=== PATIENT | female | born 1950 | race Caucasian/White ===

== ENCOUNTER 2017-09-01 10:20 | Outpatient (RCR) | payer MEDICARE, SELFPAY | END 2017-09-16 23:59 | LOC: NS 10:20 | PROVIDERS: Family Provider Family Medicine; PCP Family Medicine; Visit Provider Nurse Practitioner Family | DX: E11.65 Type 2 diabetes mellitus with hyperglycemia (principal); Z71.3 Dietary counseling and surveillance | CPT/HCPCS: 97803 ==

== ENCOUNTER 2017-09-29 10:11 | Outpatient (RCR) | payer MEDICARE, SELFPAY ==
[2016-11-11 02:27] VITALS: BMI 36.4
[2016-11-11 09:30] VITALS: BP 155/71
[2016-11-11 10:44] VITALS: BP 155/73
== END 2017-10-14 23:59 ==
LOC: DC 10:11
PROVIDERS: Family Provider Family Medicine; PCP Family Medicine; Visit Provider Nurse Practitioner Family
DX: E11.65 Type 2 diabetes mellitus with hyperglycemia (principal); Z71.3 Dietary counseling and surveillance
CPT/HCPCS: 97803

== ENCOUNTER → 2017-10-19 09:20 | Outpatient (CLI) | payer MEDICARE, SELFPAY ==
--- NOTE | 2017-10-19 09:25 | RAD_ITS ---
STUDY: X-RAY - ESOPHAGUS (BARIUM SWALLOW) WITH FLUOROSCOPY REASON FOR EXAM: Female, 67 years old. 2 month history of cervical fullness. TECHNIQUE: 16 view(s) of the esophagus were obtained following swallowing of barium. FLUOROSCOPY TIME (if supplied): (0:25) minutes/seconds COMPARISON: None. FINDINGS: There is no demonstrated esophageal foreign body. There is no demonstrated stricture or mucosal abnormality. Normal gastroesophageal junction, without a demonstrated hiatal hernia. The patient ingest a 12 mm tablet of barium without any difficulty. There is atherosclerotic tortuosity of the aortic arch and descending thoracic aorta. Normal visualized pulmonary parenchyma. Normal visualized osseous structures of the thorax. RAD/Esophagus Only IMPRESSION: Normal plain film x-ray examination (barium swallow) of the esophagus. Electronically Signed: Rupesh Morris MD at 10:19 EST Tel [phone], Service support ,
== END ==
PROVIDERS: Family Provider Family Medicine; PCP Family Medicine; Visit Provider Otolaryngology
DX: R13.10 Dysphagia, unspecified (principal)
CPT/HCPCS: 74220

== ENCOUNTER 2018-04-07 01:55 | Observation (INO) | payer MEDICARE, SELFPAY ==
[2018-04-07] VITALS (10 sets, daily range): BP systolic 149–174; BP diastolic 62–66; PULSE 78–92; RESP 14–16; TEMP 36.5–36.7; O2SAT 92–95; BMI 36.5; BMI 36.6
[2018-04-07 03:02] LABS: Anion Gap 8 (5-15); BUN 15 mg/dL (7-18); Calcium,Total 8.9 mg/dL (8.5-10.1); Chloride 104 mmol/L (98-107); Creatinine, Serum 0.75 mg/dL (0.55-1.02); EST Glomerular Filtration Rate 82 mL/min (>60); Est Glom Filt Rate - Afr Amer 99 mL/min (>60); Glucose 167 mg/dL (74-106); Potassium 4.2 mmol/L (3.5-5.1); Sodium Level 137 mmol/L (136-145)
--- NOTE | 2018-04-07 03:02 | ED.VISSUMM ---
- ER Visit Summary Date of Service: 04/07/18 Chief Complaint: Weakness History of Present Illness: The patient is a 67 F presenting for evaluation secondary to left-sided weakness. Patient reports that about 2 years ago she had a history of a TIA. She had a full workup in the hospital, was discharged on antihypertensives. She reports that since that episode, she has very intermittently had episodes where she has feelings of generalized nausea and progression to some chest discomfort then progression to a headache and then some left arm weakness that typically resolves on its own. Patient states that she over the course of the last 3 weeks after receiving a cortisone shot in her left knee feels that she has been having increasing frequency of these episodes and some increasing severity. She reports that she was having one this evening, and took her blood pressure at home and noted to be significantly elevated in the 180s 190 systolic range. She denies that there was any sort of visual changes or numbness with it. The weakness was mainly in her left arm. Patient does report that she used to be on losartan for treatment of her blood pressure, but has been off of this the last couple of days that she is changing her antihypertensives. Physical Examination: Vital signs are within normal limits except for significant hypertension 227/73 and a heart rate of 109 patient is afebrile. General: Patient is well-nourished well-developed and in no acute distress. Head: Normocephalic, atraumatic Eyes: Pupils equal round and reactive bilaterally, extra occular motion intact bialterally ENT: Moist mucous membranes Neck: Supple, no lymphadenopathy, no JVD, no meningismus CVS: Heart regular rate and rhythm, 3 out of 6 systolic murmur noted over the patient's apex, rubs or gallops, radial pulses 2+ bilaterally Resp: Respirations nondistressed, lung sounds clear bilaterally Abdomen: Soft, nontender, nondistended, no palpable masses, normal bowel sounds Back: Nontender Extremities: Nontender, atraumatic, active full range of motion, no peripheral edema Skin: warm, no rashes, no petechia Neuro: Alert and oriented x 4, CN 2-12 intact, no lateralizing neurological defecits, NIH stroke scale is 0 Psyc: Anxious Test Results: EKG: Sinus rhythm at 90 with nonspecific T-wave changes no evidence of acute ST segment changes or ischemia, no changes from prior EKG. CBC shows mild leukocytosis 12.6 with lymphocytic predominance at 48%, chemistry unremarkable, INR unremarkable, troponin negative. CT brain was negative. Emergency Department Course and Treatment: Patient presented for evaluation secondary to left-sided weakness. She had significant hypertension in the emergency department and was given IV labetalol. Her workup is essentially negative as noted above. Patient's symptoms resolved and her blood pressure improved to 152/62. Patient has a litany of risk factors, and states that she has been having crescendoing symptoms over the last 3 weeks so I do believe that there is at least some concern for the possibility of an impending stroke. Patient at the very least had a hypertensive emergency, and requires admission. I discussed this with hospitalist and the patient will be admitted. Disposition: Admission Impression: 1. Hypertensive emergency 2. TIA Critical care time 35 minutes This note was generated with Net[employer] dictation software. It may contain incorrect words, spelling, and punctuation that were not noted in review of the chart prior to signing ED Disposition - Plan for ED Patient: Referrals: Brendon Little MD [Primary Care Provider] -
--- NOTE | 2018-04-07 03:05 | ED.DCSUM_ITS ---
- ER Visit Summary Date of Service: 04/07/18 Chief Complaint: Weakness History of Present Illness: The patient is a 67 F presenting for evaluation secondary to left-sided weakness. Patient reports that about 2 years ago she had a history of a TIA. She had a full workup in the hospital, was discharged on antihypertensives. She reports that since that episode, she has very intermittently had episodes where she has feelings of generalized nausea and progression to some chest discomfort then progression to a headache and then some left arm weakness that typically resolves on its own. Patient states that she over the course of the last 3 weeks after receiving a cortisone shot in her left knee feels that she has been having increasing frequency of these episodes and some increasing severity. She reports that she was having one this evening , and took her blood pressure at home and noted to be significantly elevated in the 180s 190 systolic range. She denies that there was any sort of visual changes or numbness with it. The weakness was mainly in her left arm. Patient does report that she used to be on losartan for treatment of her blood pressure , but has been off of this the last couple of days that she is changing her antihypertensives. Physical Examination: Vital signs are within normal limits except for significant hypertension 227/73 and a heart rate of 109 patient is afebrile. General: Patient is well-nourished well-developed and in no acute distress. Head: Normocephalic, atraumatic Eyes: Pupils equal round and reactive bilaterally, extra occular motion intact bialterally ENT: Moist mucous membranes Neck: Supple, no lymphadenopathy, no JVD, no meningismus CVS: Heart regular rate and rhythm, 3 out of 6 systolic murmur noted over the patient's apex, rubs or gallops, radial pulses 2+ bilaterally Resp: Respirations nondistressed, lung sounds clear bilaterally Abdomen: Soft, nontender, nondistended, no palpable masses, normal bowel sounds Back: Nontender Extremities: Nontender, atraumatic, active full range of motion, no peripheral edema Skin: warm, no rashes, no petechia Neuro: Alert and oriented x 4, CN 2-12 intact, no lateralizing neurological defecits, NIH stroke scale is 0 Psyc: Anxious Test Results: EKG: Sinus rhythm at 90 with nonspecific T-wave changes no evidence of acute ST segment changes or ischemia, no changes from prior EKG. CBC shows mild leukocytosis 12.6 with lymphocytic predominance at 48%, chemistry unremarkable, INR unremarkable, troponin negative. CT brain was negative. Emergency Department Course and Treatment: Patient presented for evaluation secondary to left-sided weakness. She had significant hypertension in the emergency department and was given IV labetalol. Her workup is essentially negative as noted above. Patient's symptoms resolved and her blood pressure improved to 152/62. Patient has a litany of risk factors, and states that she has been having crescendoing symptoms over the last 3 weeks so I do believe that there is at least some concern for the possibility of an impending stroke. Patient at the very least had a hypertensive emergency, and requires admission. I discussed this with hospitalist and the patient will be admitted. Disposition: Admission Impression: 1. Hypertensive emergency 2. TIA Critical care time 35 minutes This note was generated with [employer] dictation software. It may contain incorrect words, spelling, and punctuation that were not noted in review of the chart prior to signing ED Disposition - Plan for ED Patient: Referrals: Brendon Little MD [Primary Care Provider] -
[2018-04-07 03:08] LABS: Red Blood Count 4.92 M/mm3 (4.2-5.4); White Blood Count 12.6 K/mm3 (4.4-11.0)
[2018-04-07 03:09] LABS: Absolute Lymphocyte Count 6.14 X10^3/ul (0.83-4.51); Basophil# 0.04 X10^3/uL; Basophil% 0.3 % (0-1); Differential Comment SCANNED; Differential Indicated SCAN CRITERIA MET; Eosinophil# 0.19 X10^3/uL; Eosinophils% 1.5 % (0-5); Hematocrit 43.2 % (37-47); Hemoglobin 14.5 g/dl (12.0-15.0); Lymphocyte # 6.14 X10^3/ul (4.0); Lymphocyte % 48.7 % (19-41); Mean Corp Hgb Conc 33.6 g/gl (32-36); Mean Corpuscular Hgb 29.5 pg (27.0-32.0); Mean Corpuscular Volume 87.8 fL (81-99); Mean Platelet Vol. 11.2 fl (6.2-12.0); Monocyte% 9.5 % (0-10); Neutrophil # 5.01 X10^3/uL (2.7-7.7); Neutrophil % 39.8 % (47-70); POSITIVE COUNT NO; POSITIVE DIFFERENTIAL YES; POSITIVE MORPHOLOGY NO; Platelet Count 315 K/mm3 (150-450); RBC Distribution Width CV 13.6 % (11.6-14.6); RBC Distribution Width SD 43.2 fl (35.1-43.9)
--- NOTE | 2018-04-07 03:10 | NURSING ---
Report received from ED [facility] due to downtime.
[2018-04-07 03:11] LABS: International Normalized Ratio 1.1; Partial Thromboplast Time 31.8 Seconds (24.1-36.2); Prothrombin Time (Protime)PT. 14.1 SECONDS (11.7-14.9)
--- NOTE | 2018-04-07 03:18 | PCM.HP.STD ---
Problem List (1) Hypertensive urgency Status: Acute (2) History of stroke Status: Chronic (3) Family history not obtainable due to adoption Status: Chronic (4) Diabetes Status: Chronic (5) Hypertension Status: Chronic Qualifiers: (6) Jaw pain Status: Acute (7) Left arm pain Status: Acute (8) Stroke Status: Acute Qualifiers: (9) Headache Status: Acute Qualifiers: History of Present Illness Date of Admission: 04/07/18 Chief Complaint: High blood pressure with concern of left-sided heaviness The patient is a 67 year old F with history of hypertension, anxiety personality with history of TIA about 2 years ago when she had left-sided weakness came to ER for a feeling of left-sided heaviness although she can lift her left upper arm and left leg but she feels very anxious that she might get left-sided weakness. She feels an episode of some vaguely defined nausea, some dyspeptic symptoms, chest discomfort, which progressed to headache and feeling of left arm heaviness and resolves on its own. She is getting episodes more frequently for last 3 weeks. In ED, she was found to have blood pressure 227/73. Heart rate 109/min. She had CT head done which did not show acute change. EKG shows normal sinus rhythm 90 bpm. QTc 484 milliseconds. [] Past Medical History Past Medical History (Chronic Problems): Chronic Problems History of stroke (Chronic) Family history not obtainable due to adoption (Chronic) Diabetes (Chronic) Hypertension (Chronic) Allergies No Known Allergies Allergy (Verified 08/29/16 03:29) Home Medications: Ambulatory Orders Medication Instructions Recorded Ibuprofen [Motrin] 200 mg PO Q4H PRN PRN 07/16/16 Aspirin [Aspirin, Baby] 81 mg PO DAILY@0800 #1 tab.chew 07/17/16 Metformin HCl [Metformin HCl ER] 500 mg PO BID #60 [id number] 07/17/16 Valsartan [Diovan] 160 mg PO DAILY #30 tablet 07/17/16 Lorazepam [Ativan] 0.5 mg PO DAILY PRN PRN 11/10/16 Pantoprazole Sodium [Protonix] 40 mg PO BID #60 tablet 11/11/16 Surgical History: no surgical history Psychiatric History: - Smoking Status: Never smoker - *Family History Maternal History Items: - - unknown due to adoption Review of Systems Constitutional: Denies: Chills, Fever, Weight Change HEENT: Denies: Head Aches, Sinus Congestion, Sinus Drainage Cardiovascular: Denies: Chest Pain, Palpitations Respiratory: Denies: Cough, Shortness of breath at rest, Sputum production Gastrointestinal: Denies: Abdominal Pain, Nausea, Vomiting Genitourinary: Denies: Dysuria Musculoskeletal: Reports: Joint Pain, Joint swelling, Joint Tenderness Skin: Denies: Rash, Wounds Neurological: Denies: Numbness, Tingling, Focal weakness Psychiatric: Reports: Anxiety. Denies: Depression, Homicidal Ideations, Suicidal Ideations Hematologic/ Lymphatic: Denies: Easy Bruising, Easy Bleeding VTE Information - Inpt Only VTE Present on Admission: No VTE Mechan Device Prophylaxis: None VTE Pharm Prophylaxis ordered?: Yes Patient Problems: Active and Suspected Problems Hypertensive urgency (Acute) - Physical Exam General: Alert, Oriented x3, Cooperative HEENT: Atraumatic, PERRLA, EOMI, Normocephalic Neck: Supple, No JVD, Negative Carotid Bruits Lungs: Clear to auscultation, Normal air movement Cardiovascular: Regular rate, Normal S1, Normal S2, Murmur - Grade 3/6 diastolic murmur over aortic region and systolic murmur over left lower sternal border and mitral area Abdomen: Bowel Sounds Present, Soft, Non Tender Extremities: No edema, Capillary Refill Less than 3 Seconds Skin: No rashes, No breakdown Musculoskeletal: No Tenderness to Palpation of Joints or Extremities Neurological: Cranial nerves II-XII grossly intact Psych/Mental Status: Normal Affect, Appropriate Laboratory Tests Past 24 Hrs 04/07/18 04/07/18 04/07/18 01:10 01:10 01:10 WBC 12.6 H RBC 4.92 Hgb 14.5 Hct 43.2 MCV 87.8 MCH 29.5 MCHC 33.6 RDW 13.6 RDW Differential 43.2 Plt Count 315 MPV 11.2 Immature Gran % (Auto) 0.200 Neut % (Auto) 39.8 L Lymph % (Auto) 48.7 H [place] % (Auto) 9.5 Eos % (Auto) 1.5 Baso % (Auto) 0.3 Absolute Neuts (auto) 5.0 Absolute Lymphs (auto) 6.14 H Total Counted Not Reportable Differential Comment SCANNED PT 14.1 INR 1.1 APTT 31.8 Sodium 137 Potassium 4.2 Chloride 104 Carbon Dioxide 25.0 Anion Gap 8 BUN 15 Creatinine 0.75 Est GFR (MDRD) Af Amer 99 Est GFR (MDRD) Non-Af 82 BUN/Creatinine Ratio 20.0 Glucose 167 H Calcium 8.9 Troponin I < 0.015 Assessment/Plan All Active Problems Hypertensive urgency (Acute) Jaw pain (Acute) Left arm pain (Acute) Stroke (Acute) Headache (Acute) The patient is a 67 year old F with history of hypertension, anxiety personality with history of TIA about 2 years ago when she had left-sided weakness came to ER for a feeling of left-sided heaviness although she can lift her left upper arm and left leg but she feels very anxious that she might get left-sided weakness. She feels an episode of some vaguely defined nausea, some dyspeptic symptoms, chest discomfort, which progressed to headache and feeling of left arm heaviness and resolves on its own. She is getting episodes more frequently for last 3 weeks. In ED, she was found to have blood pressure 227/73. Heart rate 109/min. She had CT head done which did not show acute change. EKG shows normal sinus rhythm 90 bpm. QTc 484 milliseconds. NIH stroke scale 0 She had previous exercise nuclear stress test in October 2016 reported as negative with no evidence of ischemia or clinical angina. She had full workup of his stroke with brain MRI and CT scan of head and neck which showed tiny acute infarct involving the right posterior occipital lobe in the watershed location. CT angiogram of head and neck did not show significant stenosis or aneurysm. 1. Hypertensive urgency: Last blood pressure in the ER is 155/71. Heart rate 81/min. Patient is being admitted in PCU. Serial troponin enzymes. Keep the blood pressure in 150 systolic range for next 24 hours. Patient blood pressure has recently been changed and she is not taking new medications. Continue aspirin. Fasting lipid profile tomorrow a.m. Diastolic aortic murmur probably aortic regurgitation with mitral and tricuspid systolic murmur: 2D echo is ordered. 2. Concern of left-sided weakness: There is no true weakness on exam. I think patient has anxiety and fear of previous TIA episode about 2 years ago. MRI brain, carotid Doppler and 2D echo is ordered. Serial neuro checks. PT/OT and speech evaluation. 3. Diabetes mellitus type 2: Hold metformin. Accu-Chek before meals and at bedtime and cover with NovoLog sliding scale. A1c tomorrow a.m. 4. Other comorbidities include bilateral knee arthritis and anxiety disorder: Continue home medication. She is on Ativan at home and will continue it. This note was generated with [employer] software. Every effort was made to ensure accuracy, however computerized steam press operator mistakes may persist. Code Visit OBSV E&M: 55705 Initial observation care L3
[2018-04-07 05:01] LABS: Cholesterol 204 mg/dL (200); High Density Lipoprotein 39 mg/dL; Triglycerides 319 mg/dL; Very Low Density Lipoprotein 64 mg/dL (5-40)
[2018-04-07 07:01] LABS: Bedside Glucose 162 mg/dL (70-110)
[2018-04-07 09:16] LABS: Hemoglobin A1c 8.1 % (4.2-6.3)
[2018-04-07] MEDS: LORazepam 0.5 MG Tablet PO (10:05)
[2018-04-07] MEDS: Glucerna Shake 120 ML LIQUID PO ×2 (10:05→14:02)
[2018-04-07] MEDS: Aspirin 81 MG TAB.CHEW PO (10:05)
[2018-04-07] MEDS: Losartan Potassium 25 MG Tablet PO ×2 (10:37→14:46)
[2018-04-07] MEDS: Insulin Lispro 100 UNIT/ML INSULN.PEN SQ (11:04)
[2018-04-07 11:06] LABS: Bedside Glucose 226 mg/dL (70-110)
--- NOTE | 2018-04-07 14:05 | PCM.DC ---
- Discharge Diagnoses Current Active Problems: Current Active and Chronic Problems Hypertensive urgency (Acute) You will use the following diet at home:: Calorie/Carbohydrate Controlled (specify 1200, 1400, etc), Cardiac Discharge Activity: Return to Normal Activity Call your doctor if you observe: Shortness of breath, Dizziness, Fainting spells, Chest pain Allergies/Adverse Reactions: Allergies caffeine Adverse Reaction (Verified 04/07/18 03:50) Other prochlorperazine [From Compazine] Adverse Reaction (Verified 04/07/18 03:50) Other Medications to take at Discharge Aspirin [Aspirin, Baby] 81 mg PO DAILY@0800 #1 tab.chew 07/17/16 Lorazepam [Ativan] 0.5 mg PO DAILY PRN PRN 11/10/16 Atorvastatin Calcium [Lipitor] 40 mg PO QHS #30 tab 04/07/18 Losartan Potassium 50 mg PO DAILY #30 tab 04/07/18 Metformin HCl 500 mg PO BID #30 tab 04/07/18 The following prescriptions were given: Atorvastatin Calcium [Lipitor] 40 mg PO QHS #30 tab Losartan Potassium 50 mg PO DAILY #30 tab Primary Care Physician: Brendon Little MD [Primary Care Provider] - Please follow up with your Primary Care Physician in: 1 Week Test Results: Test results from this visit will be discussed in further detail at your follow-up appointment, if applicable. Proposed Discharge Date: 04/07/18
--- NOTE | 2018-04-07 14:09 | PCM.DC.SUM ---
<Makeda Carcamo - Last Filed: 04/07/18 14:21> Discharge Date and Diagnosis Date of Admission: 04/07/18 Date of Discharge: 04/07/18 - Primary Discharge Diagnosis Active and Suspected Problems 1. Hypertensive urgency 2. History of CVA 3. Type 2 diabetes mellitus 4. Anxiety disorder 5. Bilateral knee arthritis - Secondary Discharge Diagnosis Chronic Problems History of stroke (Chronic) Family history not obtainable due to adoption (Chronic) Diabetes (Chronic) Hypertension (Chronic) Hospital Course and Treatment Imaging Results: Diagnostic Data Brain CT 04/07/18 01:50 IMPRESSION: Normal unenhanced CT scan of the brain. Electronically Signed: Bridger Samano MD at 2:11 EDT Tel , Service support , Operations: None Procedures: 2-D Echocardiogram Summary of Care Provided: The patient is a 67 year old F admitted 04/07/2018 due to hypertensive urgency. Patient also noted left-sided upper extremity weakness although on further assessment she states this is chronic intermittently and has been told it is due to her nerves. Patient was discharged October 2016 following workup for jaw pain and was noted to have residual left upper extremity weakness from prior CVA. Patient denies new neurologic deficits during admission. Home losartan regimen increased to 50mg daily. Blood pressure improved prior to discharge. Patient will need further blood pressure monitoring as outpatient, further outpatient follow-up by primary care physician. Echocardiogram demonstrated an EF of 65%, stage I diastolic dysfunction, RVSP estimated [address] showed normal CT of the brain. Troponin negative. Patient was noted to have elevated lipids. Placed on atorvastatin 40 mg nightly. Recommend repeat lipid panel by primary care physician for further adjustment of statin therapy if necessary. Hemoglobin A1c 8.1%. Home metformin regimen increased to 500 mg twice daily. Troponin negative ?1. Patient will continue aspirin regimen at discharge. MRI of brain showed no evidence of acute infarct. No neurologic deficits on assessment. General: Alert, Oriented x3, Cooperative HEENT: Atraumatic, PERRLA, EOMI, Normocephalic Neck: Supple, No JVD, Negative Carotid Bruits Lungs: Clear to auscultation, Normal air movement Cardiovascular: Regular rate, Normal S1, Normal S2, Murmur Abdomen: Bowel Sounds Present, Soft, Non Tender Extremities: No edema, Capillary Refill Less than 3 Seconds Skin: No rashes, No breakdown Musculoskeletal: No Tenderness to Palpation of Joints or Extremities Neurological: Cranial nerves II-XII grossly intact Psych/Mental Status: Normal Affect, Appropriate Patient seen exam prior to discharge. Physical assessment as noted above. Patient stable for discharge home with the follow-up recommendations as noted above. This patient was seen by BUSHRA Navarro under the supervision of Dr. Avendaño. Discharge Diet: Low fat/ Low Cholesterol Discharge Activity: Return to Normal Activity Call your doctor if you observe: Shortness of breath, Dizziness, Fainting spells, Chest pain Home Medications: Medications to take at Discharge Aspirin [Aspirin, Baby] 81 mg PO DAILY@0800 #1 tab.chew 07/17/16 Lorazepam [Ativan] 0.5 mg PO DAILY PRN PRN 11/10/16 Atorvastatin Calcium [Lipitor] 40 mg PO QHS #30 tab 04/07/18 Losartan Potassium 50 mg PO DAILY #30 tab 04/07/18 Metformin HCl 500 mg PO BID #30 tab 04/07/18 Following Prescrptions Were Given to Patient: Atorvastatin Calcium [Lipitor] 40 mg PO QHS #30 tab Losartan Potassium 50 mg PO DAILY #30 tab Primary Care Physician: Brendon Little MD [Primary Care Provider] - Please follow up with your Primary Care Physician in: 1 Week Disposition: Home Minutes spent on discharge:: 35 Patient Condition:: Stable Medical Necessity - Tobacco Use Smoking Status: Never smoker Meaningful Use Info Meaningful Use Diagnoses (Choose all that apply): None applicable <Tab Avendaño - Last Filed: 04/07/18 16:09> Discharge Date and Diagnosis - Secondary Discharge Diagnosis Chronic Problems History of stroke (Chronic) Family history not obtainable due to adoption (Chronic) Diabetes (Chronic) Hypertension (Chronic) Hospital Course and Treatment Summary of Care Provided: Addendum: Dr. Avendaño I personally examined the patient and reviewed the chart. I agree with the above. My review of her MRI was negative for a stroke. 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 She has not been on her valsartan because she says it was recalled and has not started taking yet, the losartan that was prescribed. Also she had a steroid knee injection which she states has made her BG difficult to control and this has caused her stress which has contributed to her HTN and symptoms. She is currently doing well and her exam is benign. She will need to f/u with her PCP to continue close monitoring of her HTN. The final read on the MRI is still pending but the patient demands to go home. She understands, and is willing to assume the risk. Code Visit Inpatient E&M: 06777 Disch Hosp
== END 2018-04-07 14:06 | disposition home or self-care (01) ==
LOC: ED 02:54 → PCU 03:17
PROVIDERS: Admitting Provider Internal Medicine; Emergency Provider Emergency Medicine; Family Provider Family Medicine; PCP Family Medicine; Visit Provider Family Medicine
DX: I16.0 Hypertensive urgency (principal); I69.354 Hemiplegia and hemiparesis following cerebral infarction affecting left non-dominant side; E11.9 Type 2 diabetes mellitus without complications; F41.9 Anxiety disorder, unspecified; Z79.899 Other long term (current) drug therapy; Z79.84 Long term (current) use of oral hypoglycemic drugs; Z79.82 Long term (current) use of aspirin; M13.862 Other specified arthritis, left knee; M13.861 Other specified arthritis, right knee; I07.1 Rheumatic tricuspid insufficiency; I65.23 Occlusion and stenosis of bilateral carotid arteries; R29.700 NIHSS score 0
CPT/HCPCS: 36415; 70450; 70551; 80048; 80061; 82962; 83036; 84484; 85025; 85610; 85730; 92526; 93005; 93306; 93880; 97161; 97166; 99218; 99285; Q9957; A4216; G0378

== ENCOUNTER 2020-02-19 10:02 | Emergency (ER) | payer MEDICARE, SELFPAY ==
[2020-02-19 10:03] VITALS: BP 164/120; PULSE 104; RESP 18; TEMP 37.7; O2SAT 97; BMI 38.2
--- NOTE | 2020-02-19 10:21 | RAD_ITS ---
STUDY: X-RAY CHEST REASON FOR EXAM: Female, 69 years old. Chest pain TECHNIQUE: Frontal view COMPARISON: November 11, 2016 FINDINGS: The lungs are clear and expanded. There is no demonstrated pleural abnormality. Normal size heart. Normal mediastinum and kailyn. Normal visualized pulmonary arteries. Normal visualized aortic arch and descending thoracic aorta. Normal visualized thoracic spine. Normal visualized ribs, clavicles, and shoulders. There is no demonstrated abnormality of the visualized soft tissue structures of the upper abdomen. RAD/Chest 1 View (Portable) IMPRESSION: Normal x-ray examination of the chest. Electronically Signed: Rayray Ngo DO at 11:42 EDT Tel [phone], Service support ,
--- NOTE | 2020-02-19 10:23 | ED.VIS.GEN ---
History of Present Illness Chief Complaint: Fever Informant: Patient Onset: Yesterday Context: Gradual Onset Current Severity: Moderate Maximum Severity: Moderate Narrative: Patient presents with fever that started yesterday. T-max is 100.5. She complains of generalized body aches. She denies cough or congestion. She denies nausea, vomiting, or diarrhea. No dysuria. Denies any known exposures to Covid. - Past Medical History (1) Stroke Status: Chronic (2) Diabetes Status: Chronic (3) Hypertension Status: Chronic Past Medical History - Allergies and Home Meds Allergies/Adverse Reactions: Allergies caffeine Adverse Reaction (Verified 02/19/20 10:05) Other diphenhydramine [From Benadryl] Adverse Reaction (Verified 02/19/20 10:05) PT UNSURE OF REACTION prochlorperazine [From Compazine] Adverse Reaction (Verified 02/19/20 10:05) Other Primary Care Physician: Brendon Little MD [Primary Care Provider] - Prior records reviewed: Yes Surgical History: no surgical history Lives: Spouse/ Significant Other Smoking Status: Never smoker - Family History Maternal Family History: Reports: - - unknown due to adoption Review of Systems General: Reports: Fever Eyes: Denies: Visual changes - bilaterally ENT: Denies: Bilateral ear pain Cardiovascular: Denies: Chest pain Respiratory: Denies: Dyspnea, Cough Gastrointestinal: Denies: Abdominal pain, Nausea, Vomiting, Diarrhea Genitourinary: Denies: Dysuria Musculoskeletal: Reports: Myalgias Skin: Denies: Rash Neurological: Denies: Headache Hematologic: Denies: Easy bruising, Easy bleeding Allergy: Denies: Uticaria Physical Exam Vital Signs/Narrative: Vital Signs Temp Pulse Resp BP Pulse Ox 02/19/20 10:03 100 F H 104 H 18 164/120 H 97 Inital Vital Signs reviewed: Yes General: Well nourished, Well developed Head: Normocephalic ENT: Moist mucous membranes Neck: Supple Cardiovascular: Regular rate, Regular rhythm Respiratory: No distress, CTA bilaterally Abdomen: Soft, Normal bowel sounds, Tender - Mild upper abdominal tenderness. No guarding or rebound. Back: Nontender - No midline thoracic or lumbar tenderness. Extremities: Nontender Skin: Normal color, No rash Neurological: Alert, Oriented x3 Psychological: Normal affect Diagnostic/Tx/Re-eval Impressions Chest X-Ray 02/19/20 10:21 IMPRESSION: Normal x-ray examination of the chest. Electronically Signed: Rayray Ngo DO at 11:42 EDT Tel [phone], Service support , 02/19/20 10:21 Chest 1 View (Portable) [RAD] Stat Laboratory Results 02/19/20 02/19/20 02/19/20 11:00 11:00 11:00 WBC 11.0 RBC 5.14 Hgb 15.1 H Hct 46.7 MCV 90.9 MCH 29.4 MCHC 32.3 RDW Std Deviation 43.8 RDW Coeff of Michaela 13.3 Plt Count 274 MPV 10.9 Immature Gran % (Auto) 0.300 Neut % (Auto) 80.0 H Lymph % (Auto) 13.0 L [place] % (Auto) 6.0 Eos % (Auto) 0.3 Baso % (Auto) 0.4 Absolute Neuts (auto) 8.8 H Absolute Lymphs (auto) 1.44 Nucleated RBC % 0 Sodium 133 L Potassium 3.7 Chloride 100 Carbon Dioxide 28.0 Anion Gap 5 BUN 10 Creatinine 0.77 Estim Creat Clear Calc 45.16 Est GFR (MDRD) Af Amer 96 Est GFR (MDRD) Non-Af 79 BUN/Creatinine Ratio 13.0 Glucose 267 H Lactic Acid 1.5 Calcium 8.3 L Total Bilirubin 1.40 H Direct Bilirubin 0.27 AST 26 ALT 44 Alkaline Phosphatase 88 Total Protein 8.4 H Albumin 3.5 Globulin 4.9 H Lipase 98 Urine Color Urine Clarity Urine pH Ur Specific [place] Urine Protein Urine Glucose (UA) Urine Ketones Urine Occult Blood Urine Nitrite Urine Bilirubin Urine Urobilinogen Ur Leukocyte Esterase Urine RBC Urine WBC Ur Squamous Epith Cells Urine Bacteria Urine Mucus 02/19/20 11:05 WBC RBC Hgb Hct MCV MCH MCHC RDW Std Deviation RDW Coeff of Michaela Plt Count MPV Immature Gran % (Auto) Neut % (Auto) Lymph % (Auto) [place] % (Auto) Eos % (Auto) Baso % (Auto) Absolute Neuts (auto) Absolute Lymphs (auto) Nucleated RBC % Sodium Potassium Chloride Carbon Dioxide Anion Gap BUN Creatinine Estim Creat Clear Calc Est GFR (MDRD) Af Amer Est GFR (MDRD) Non-Af BUN/Creatinine Ratio Glucose Lactic Acid Calcium Total Bilirubin Direct Bilirubin AST ALT Alkaline Phosphatase Total Protein Albumin Globulin Lipase Urine Color Yellow Urine Clarity Clear Urine pH 5.0 Ur Specific [place] 1.020 Urine Protein 30 H Urine Glucose (UA) 1000 H Urine Ketones 50 H Urine Occult Blood 50 H Urine Nitrite Negative Urine Bilirubin Negative Urine Urobilinogen Normal Ur Leukocyte Esterase Negative Urine RBC 0-5 SEEN Urine WBC 0 SEEN Ur Squamous Epith Cells 0-5 SEEN Urine Bacteria RARE Urine Mucus 0 SEEN - Medical Decision Making Patient is given Tylenol and IV fluids. On repeat evaluation she is resting comfortably. Test results are discussed with her. At this time I do not have a definitive source for her fever. Covid test is pending and will likely take a couple hours to come back. I will let her go home at this time and call her with those results. It overall does not change our management at this time which is supportive care. Patient and at bedside voiced understanding and agreement. ED Disposition - Plan for ED Patient: Disposition: Home or Assisted Living Diagnosis: Fever Instructions: ED FUO Adult Referrals: Brendon Little MD [Primary Care Provider] - 3-5 Days if not improving
[2020-02-19 11:18] LABS: Mucous, Urine 0 SEEN /hpf (<or=2+); White Blood Cells 0 SEEN /hpf (0-5)
[2020-02-19 11:21] LABS: Absolute Lymphocyte Count 1.44 X10^3/uL (0.83-4.51); Absolute Neutrophil Count 8.8 X10^3/uL (2.0-7.7); Basophil# 0.04 X10^3/uL; Basophil% 0.4 % (0-1); Eosinophil# 0.03 X10^3/uL; Eosinophils% 0.3 % (0-5); Hematocrit 46.7 % (37-47); Hemoglobin 15.1 g/dL (12.0-15.0); Lymphocyte # 1.44 X10^3/ul (4.0); Mean Corp Hgb Conc 32.3 g/dL (32-36); Mean Corpuscular Hgb 29.4 pg (27.0-32.0); Mean Corpuscular Volume 90.9 fL (81-99); Mean Platelet Vol. 10.9 fl (6.2-12.0); Monocyte# 0.66 X10^3/uL; NRBC Flagged by Analyzer 0 % (0-5); Neutrophil # 8.84 X10^3/uL (2.7-7.7); Platelet Count 274 K/mm3 (150-450); RBC Distribution Width CV 13.3 % (11.6-14.6); RBC Distribution Width SD 43.8 fl (35.1-43.9); Red Blood Count 5.14 M/mm3 (4.2-5.4)
[2020-02-19 11:22] LABS: Color, Urine Yellow (Yellow); Glucose, Dipstick 1000 mg/dl (Normal); Ketone-Dipstick 50 mg/dl (Negative); Leukocyte Esterase-Dipstick Negative /ul (Negative); Nitrite-Dipstick Negative (Negative); Occult Blood-Urine 50 /ul (Negative); Protein-Dipstick 30 mg/dl (Negative); Urine Bilirubin Dipstick Negative (Negative); Urine Clarity Clear (Clear); Urine Urobilinogen Normal (Normal)
[2020-02-19] MEDS: 0.9% Normal Saline 1,000 ML 150 ML IV (11:23)
[2020-02-19] MEDS: Acetaminophen 500 MG Tablet 1000 MG PO (11:23)
[2020-02-19 11:33] LABS: Bacteria RARE /hpf (None Seen); Red Blood Cells-Urine 0-5 SEEN /hpf (0-5); Squamous Epithelial Cells - UA 0-5 SEEN /hpf (5-10)
[2020-02-19 11:37] LABS: AST(SGOT) 26 U/L (15-37); Alanine Aminotransfer ALT/SGPT 44 U/L (13-56); Albumin, Serum 3.5 g/dL (3.2-5.0); Alkaline Phosphatase 88 U/L (45-117); Anion Gap 5 (5-15); BUN 10 mg/dL (7-18); Bilirubin, Direct 0.27 mg/dL (0.00-0.30); Calcium,Total 8.3 mg/dL (8.5-10.1); Chloride 100 mmol/L (98-107); Creatinine, Serum 0.77 mg/dL (0.55-1.02); EST Glomerular Filtration Rate 79 mL/min (>60); Est Glom Filt Rate - Afr Amer 96 mL/min (>60); Estimated Creatinine Clearance 45.16 ml/min; Globulin 4.9 g/dL (2.2-4.2); Glucose 267 mg/dL (74-106); Lipase 98 U/L (73-393); Potassium 3.7 mmol/L (3.5-5.1); Protein, Total 8.4 g/dL (6.4-8.2); Sodium Level 133 mmol/L (136-145)
[2020-02-19 11:43] LABS: Lactic Acid 1.5 mmol/L (0.4-1.9)
[2020-02-19 11:59] LABS: Probe Check PASS; Specimen Processing Control PASS
--- NOTE | 2020-02-20 21:57 | ED.RN ---
POSITIVE BLOOD CULTURE RESULTS REPORTED TO . PHYSICIAN VERBALIZES UNDERSTANDING AND STATES HE WILL NEED TO LOOK INTO IT FURTHER. NO ORDERS GIVEN AT THIS TIME
--- NOTE | 2020-02-20 22:09 | ED.RN ---
AFTER REVIEWING THE CHART DETERMINED THE PATIENT SHOULD COME BACK IN FOR TREATMENT. PT WAS CALLED BY THIS RN. THERE WAS NO ANSWER. VOICEMAIL LEFT TO RETURN CALL TO ED REGARDING LAB RESULTS AND COMING BACK IN FOR TREATMENT AT [phone]
--- NOTE | 2020-02-21 05:57 | ED.RN ---
THIS RN SPOKE WITH PT ABOUT RESULTS AND THE PLAN TO COME BACK IN FOR TREATMENT. PT STATES SHE WILL SHOWER THEN BE IN
== END 2020-02-19 12:05 | disposition home or self-care (01) ==
PROVIDERS: Emergency Provider Emergency Medicine; PCP Family Medicine
DX: R50.9 Fever, unspecified (principal); M79.10 Myalgia, unspecified site; I10 Essential (primary) hypertension; E11.9 Type 2 diabetes mellitus without complications; Z86.73 Personal history of transient ischemic attack (TIA), and cerebral infarction without residual deficits; Z79.84 Long term (current) use of oral hypoglycemic drugs; Z79.82 Long term (current) use of aspirin; Z79.899 Other long term (current) drug therapy
CPT/HCPCS: 71045; 80048; 80076; 81001; 83605; 83690; 85025; 87040; 87086; 87088; 87149; 87635; 96360; 96361; 99284; G2023; J7030; A4216; U0003

== ENCOUNTER 2020-02-21 07:59 | Emergency (ER) | payer MEDICARE, SELFPAY ==
[2020-02-21 08:00] VITALS: BP 180/114; PULSE 104; RESP 16; TEMP 37.1; O2SAT 95; BMI 37.7
--- NOTE | 2020-02-21 08:17 | ED.VIS.GEN ---
History of Present Illness Chief Complaint: Abn Labs Informant: Patient, Significant Other Onset: Today Narrative: Patient called back to the ED for concerns of abnormal blood culture resulted today. Was seen 2 days in the ED with a fever that started the day prior. Her T-max was 100.4. She had a temp of 100 from records 2 days ago. Denies cough. Denies nausea vomiting. States that urine frequency which is normal due to a leaky bladder per patient. States temp has been 99 since then. No new symptoms. She had a COVID test that was negative. Her white count was normal 2 days ago. States she just currently feels nervous deep to being called back to the hospital. Review of records and labs noted 1 out of 2 blood cultures with preliminary gram-positive cocci. Prior similar symptoms: Yes Past Medical History - Allergies and Home Meds Allergies/Adverse Reactions: Allergies caffeine Adverse Reaction (Verified 02/21/20 08:03) Other diphenhydramine [From Benadryl] Adverse Reaction (Verified 02/21/20 08:03) PT UNSURE OF REACTION prochlorperazine [From Compazine] Adverse Reaction (Verified 02/21/20 08:03) Other Primary Care Physician: Brendon Little MD [Primary Care Provider] - Past Medical History: - - Hypertension, diabetes, stroke history with no residual deficits Surgical History: no surgical history Smoking Status: Never smoker - Family History Maternal Family History: Reports: - - unknown due to adoption Review of Systems General: Reports: Fever. Denies: Chills, Sweats Eyes: Denies: Visual changes - bilaterally, Diplopia ENT: Denies: Rhinorrhea, Sore throat Cardiovascular: Denies: Chest pain, Palpitations Respiratory: Denies: Dyspnea, Cough, Dyspnea on exertion Gastrointestinal: Denies: Abdominal pain, Nausea, Vomiting, Diarrhea, Melena, Hematochezia Genitourinary: Reports: Frequency. Denies: Dysuria, Hematuria Musculoskeletal: Denies: Back pain, Extremity Pain Skin: Denies: Rash, Wounds Neurological: Denies: Headache, Weakness, Numbness Physical Exam Vital Signs/Narrative: Vital Signs Temp Pulse Resp BP Pulse Ox 02/21/20 08:00 98.7 F 104 H 16 180/114 H 95 General: Well nourished, Well developed, No Acute Distress, - - Nontoxic Head: Normocephalic, Atraumatic Eyes: Perrl, EOMI ENT: Moist mucous membranes, No rhinorrhea Neck: Supple, Nontender Cardiovascular: Regular rate, Regular rhythm, No murmurs, Tachycardia Respiratory: No distress, CTA bilaterally, Chest nontender Abdomen: Soft, Nontender, Nondistended, Normal bowel sounds Back: Nontender, Normal Inspection Extremities: Nontender, No edema Skin: Normal color, No rash Neurological: Alert, Oriented x3, Cranial nerves II-XII grossly intact, Normal Strength, Normal Sensation Psychological: Normal affect, Normal Mood Diagnostic/Tx/Re-eval - Medical Decision Making Abnormal Lab Results 02/21/20 02/21/20 02/21/20 08:40 08:40 09:45 WBC 6.1 RBC 4.90 Hgb 14.5 Hct 44.1 MCV 90.0 MCH 29.6 MCHC 32.9 RDW Std Deviation 43.4 RDW Coeff of Michaela 13.2 Plt Count 248 MPV 11.0 Immature Gran % (Auto) 0.200 Neut % (Auto) 49.2 Lymph % (Auto) 35.2 [place] % (Auto) 13.3 H Eos % (Auto) 1.3 Baso % (Auto) 0.8 Absolute Neuts (auto) 3.0 Absolute Lymphs (auto) 2.15 Nucleated RBC % 0 Sodium 136 Potassium 3.7 Chloride 101 Carbon Dioxide 28.0 Anion Gap 7 BUN 12 Creatinine 0.74 Estim Creat Clear Calc 45.16 Est GFR (MDRD) Af Amer 101 Est GFR (MDRD) Non-Af 83 BUN/Creatinine Ratio 16.3 Glucose 343 H Calcium 8.1 L Urine Color Yellow Urine Clarity Clear Urine pH 5.0 Ur Specific [place] 1.015 Urine Protein 15 H Urine Glucose (UA) 1000 H Urine Ketones 15 H Urine Occult Blood 25 H Urine Nitrite Negative Urine Bilirubin Negative Urine Urobilinogen Normal Ur Leukocyte Esterase Negative Urine RBC 0 SEEN Urine WBC 0 SEEN Ur Squamous Epith Cells 0-5 SEEN Urine Bacteria RARE Urine Mucus 0 SEEN Patient nontoxic, vital signs stable afebrile. Evaluation of records noting 1 of 2 blood cultures with gram-positive cocci, discussed there is a likelihood that this is a contaminant. However labs were redrawn and blood cultures recollected x2. White count down to 6 from 11, 2 days ago. Patient is clinically stable. I did speak with hospitalist also initially agrees this is likely contaminant especially when additional results noting coagulase negative. Spoke with patient who feels comfortable with close outpatient follow-up. Therefore I spoke with her PCP Dr. Franki Suazo who will follow up with her. Strict signs and symptom discussed with patient and significant other to return. All questions were answered. ED Disposition - Plan for ED Patient: Disposition: Home or Assisted Living Diagnosis: Well adult exam, Abnormal blood chemistry Referrals: Brendon Little MD [Primary Care Provider] - 3-5 Days Additional Instructions: Your white blood count is 6 today. Blood cultures are pending. If any abnormalities you will be contacted. Follow-up with Dr. Franki Suazo.
[2020-02-21 08:52] LABS: Absolute Lymphocyte Count 2.15 X10^3/uL (0.83-4.51); Basophil# 0.05 X10^3/uL; Basophil% 0.8 % (0-1); Eosinophil# 0.08 X10^3/uL; Eosinophils% 1.3 % (0-5); Hematocrit 44.1 % (37-47); Hemoglobin 14.5 g/dL (12.0-15.0); Lymphocyte # 2.15 X10^3/ul (4.0); Lymphocyte % 35.2 % (19-41); Mean Corp Hgb Conc 32.9 g/dL (32-36); Mean Corpuscular Hgb 29.6 pg (27.0-32.0); Monocyte# 0.81 X10^3/uL; Monocyte% 13.3 % (0-10); NRBC Flagged by Analyzer 0 % (0-5); Neutrophil # 3.01 X10^3/uL (2.7-7.7); Neutrophil % 49.2 % (47-70); Platelet Count 248 K/mm3 (150-450); RBC Distribution Width CV 13.2 % (11.6-14.6); RBC Distribution Width SD 43.4 fl (35.1-43.9); White Blood Count 6.1 K/mm3 (4.4-11.0)
[2020-02-21 08:56] VITALS: BP 170/100; PULSE 87; RESP 16; TEMP 37.1; O2SAT 99
[2020-02-21 09:03] LABS: Anion Gap 7 (5-15); BUN 12 mg/dL (7-18); BUN/Creat Ratio 16.3 RATIO (10-20); Calcium,Total 8.1 mg/dL (8.5-10.1); Chloride 101 mmol/L (98-107); Creatinine, Serum 0.74 mg/dL (0.55-1.02); EST Glomerular Filtration Rate 83 mL/min (>60); Est Glom Filt Rate - Afr Amer 101 mL/min (>60); Estimated Creatinine Clearance 45.16 ml/min; Glucose 343 mg/dL (74-106); Potassium 3.7 mmol/L (3.5-5.1); Sodium Level 136 mmol/L (136-145)
[2020-02-21 09:52] LABS: Mucous, Urine 0 SEEN /hpf (<or=2+); Red Blood Cells-Urine 0 SEEN /hpf (0-5); White Blood Cells 0 SEEN /hpf (0-5)
[2020-02-21 09:54] LABS: Color, Urine Yellow (Yellow); Glucose, Dipstick 1000 mg/dl (Normal); Ketone-Dipstick 15 mg/dl (Negative); Leukocyte Esterase-Dipstick Negative /ul (Negative); Nitrite-Dipstick Negative (Negative); Occult Blood-Urine 25 /ul (Negative); Protein-Dipstick 15 mg/dl (Negative); Specific Gravity, Urine 1.015 (1.002-1.030); Urine Bilirubin Dipstick Negative (Negative); Urine Clarity Clear (Clear); Urine Urobilinogen Normal (Normal)
[2020-02-21 09:59] LABS: Bacteria RARE /hpf (None Seen); Squamous Epithelial Cells - UA 0-5 SEEN /hpf (5-10)
[2020-02-21 10:24] VITALS: BP 151/65
== END 2020-02-21 10:24 | disposition home or self-care (01) ==
PROVIDERS: Emergency Provider Emergency Medicine; PCP Family Medicine
DX: R79.9 Abnormal finding of blood chemistry, unspecified (principal); R35.0 Frequency of micturition; I10 Essential (primary) hypertension; E11.9 Type 2 diabetes mellitus without complications; Z86.73 Personal history of transient ischemic attack (TIA), and cerebral infarction without residual deficits; Z79.82 Long term (current) use of aspirin; Z79.84 Long term (current) use of oral hypoglycemic drugs; Z79.899 Other long term (current) drug therapy
CPT/HCPCS: 80048; 81001; 85025; 87040; 87086; 87088; 99283; A4216

== ENCOUNTER → 2020-05-15 09:17 | Outpatient (CLI) | payer MEDICARE, SELFPAY ==
--- NOTE | 2020-05-15 09:19 | BI_ITS ---
MAMMOGRAPHY - BILATERAL SCREENING REASON FOR EXAM: Female, 70 years old. Routine annual screening examination. PERTINENT HISTORY: Non-contributory. TECHNIQUE: Digital bilateral breast jonatan (3D mammographic acquisition) in the CC and MLO projections. 2-D mediolateral oblique (MLO) and craniocaudad (CC) views of both breasts were obtained. CAD: Full Field Digital Mammography with Computer Added Detection was performed. COMPARISON: Comparison is made with prior study dated 03/18/2017. FINDINGS: Breast Composition: There are scattered areas of fibroglandular density. There are no dominant masses or suspicious calcifications. No other significant abnormalities are identified. There has been no significant change since the prior study. BI/SCREEN MAMM (CAD) W/JONATAN BILAT IMPRESSION: Stable bilateral screening mammogram. Yearly follow-up mammogram recommended. (A) ASSESSMENT CATEGORY: BIRADS Category 1: Negative. A letter regarding these results will be sent to the patient by the facility within 30 days. Approximately 10% of breast cancers are not detected by mammography. A normal mammogram should not delay biopsy of a clinically suspicious abnormality. [id number] Electronically Signed: Rupesh Morris, at 11:03 EDT , Service support ,
--- NOTE | 2020-05-15 09:26 | BD_ITS ---
STUDY: DUAL ENERGY X-RAY ABSORPTIOMETRY / DXA REASON FOR EXAM: Female, 70 years old. 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 COMPARISON: None. FINDINGS: Lumbar Spine (L1-L4): g/cm2 (1.210) / T-score (0.1) / Z-score (1.7) Findings are suggestive of normal bone density with a low fracture risk. Left Femur Total: g/cm2 (0.912) / T-score (-0.8) / Z-score (0.6) Left Femoral Neck: g/cm2 (0.81) / T-score (-1.6) / Z-score (0.0) Right Femur Total: g/cm2 (1.013) / T-score (0.0) / Z-score (1.4) Right Femoral Neck: g/cm2 (0.921) / T-score (-0.8) / Z-score (0.7) BD/Dexa Bone Density Study IMPRESSION: The patient is considered osteopenic as outlined below according to [employer] Organization (WHO) criteria with a moderate fracture risk. Reference Information: The T-score is the number of standard deviations above or below the standard which is normal for young adults at their peak bone mineral density. The World Health Organization (WHO) interprets the T-scores as follows: Above -1 Normal bone density Between -1 and -2.5 Osteopenia Equal to / or below -2.5 Osteoporosis As a practical clinical guideline, osteopenia may be graded as follows: Mild -1 through -1.5 Moderate -1.6 through -2.0 Severe -2.1 through -2.4 The Z-score is the number of standard deviations above or below age-matched controls. A Z-score of less than -1.5 would be considered abnormal. References: 1. NIH Osteoporosis and Related Bone Diseases http://www.osteo.org 2. International Society for Clinical Densitometry http://www.iscd.org 3. National Osteoporosis Foundation http://www.nof.org Electronically Signed: Rupesh Morris, at 15:34 EDT , Service support ,
== END ==
PROVIDERS: PCP Family Medicine; Referring Provider Student in an Organized Health Care Education/Training Program; Visit Provider Student in an Organized Health Care Education/Training Program
DX: Z12.31 Encounter for screening mammogram for malignant neoplasm of breast (principal); Z78.0 Asymptomatic menopausal state
CPT/HCPCS: 77063; 77067; 77080

== ENCOUNTER → 2020-06-07 | Outpatient (CLI) | payer MEDICARE, SELFPAY ==
[2020-06-07 11:44] LABS: Bacteria 0 SEEN /hpf (None Seen); Mucous, Urine 0 SEEN /hpf (<or=2+); Red Blood Cells-Urine 0 SEEN /hpf (0-5); White Blood Cells 0 SEEN /hpf (0-5)
[2020-06-07 13:56] LABS: Color, Urine Yellow (Yellow); Glucose, Dipstick 1000 mg/dl (Normal); Ketone-Dipstick 15 mg/dl (Negative); Leukocyte Esterase-Dipstick Negative /ul (Negative); Nitrite-Dipstick Negative (Negative); Occult Blood-Urine 10 /ul (Negative); Protein-Dipstick 15 mg/dl (Negative); Urine Bilirubin Dipstick Negative (Negative); Urine Clarity Sl. Cloudy (Clear); Urine Urobilinogen Normal (Normal)
[2020-06-07 14:05] LABS: Squamous Epithelial Cells - UA 0-5 SEEN /hpf (5-10)
== END | disposition home or self-care (01) ==
LOC: LABSPEC 11:34
PROVIDERS: PCP Family Medicine; Visit Provider Student in an Organized Health Care Education/Training Program
DX: R30.0 Dysuria (principal)
CPT/HCPCS: 81001; 87086; 87088

== ENCOUNTER → 2021-06-04 09:48 | Outpatient (CLI) | payer MEDICARE, SELFPAY ==
--- NOTE | 2021-06-04 09:51 | BI_ITS ---
MAMMOGRAPHY - BILATERAL SCREENING REASON FOR EXAM: Female, 71 years old. Routine annual screening examination. PERTINENT HISTORY: Non-contributory. TECHNIQUE: Digital bilateral breast jonatan (3D mammographic acquisition) in the CC and MLO projections. 2-D mediolateral oblique (MLO) and craniocaudad (CC) views of both breasts were obtained. CAD: Full Field Digital Mammography with Computer Added Detection was performed. COMPARISON: Comparison is made with prior study 05/15/2020 and 03/18/2017. FINDINGS: Breast Composition: There are scattered areas of fibroglandular density. There are no dominant masses or suspicious calcifications. No other significant abnormalities are identified. There has been no significant change since the prior study. BI/SCRN MAMM (CAD)W/JONATAN BILAT IMPRESSION: Stable bilateral screening mammogram. Yearly follow-up mammogram recommended. (A) ASSESSMENT CATEGORY: BIRADS Category 1: Negative. A letter regarding these results will be sent to the patient by the facility within 30 days. Approximately 10% of breast cancers are not detected by mammography. A normal mammogram should not delay biopsy of a clinically suspicious abnormality. [id number] Electronically Signed: Rupesh Morris MD at 12:17 EDT , Service support ,
== END ==
PROVIDERS: PCP Family Medicine; Referring Provider Student in an Organized Health Care Education/Training Program; Visit Provider Student in an Organized Health Care Education/Training Program
DX: Z12.31 Encounter for screening mammogram for malignant neoplasm of breast (principal)
CPT/HCPCS: 77063; 77067

== ENCOUNTER 2021-06-25 05:29 | Emergency (ER) | payer MEDICARE, SELFPAY ==
[2021-06-25] VITALS (7 sets, daily range): BP systolic 140–208; BP diastolic 77–86; PULSE 86–91; RESP 19–28; TEMP 36.7–37.5; O2SAT 92–96; BMI 37.7
--- NOTE | 2021-06-25 05:56 | RAD_ITS ---
STUDY: X-RAY CHEST REASON FOR EXAM: Female, 71 years old. covid, cough TECHNIQUE: Single AP portable view of the chest. COMPARISON: None. FINDINGS: Ill-defined patchy groundglass opacities are seen more prominent in the lung bases , may represent atypical pneumonia or viral pneumonia (COVID-19 ?). There is no demonstrated pleural abnormality. Normal size heart. Normal mediastinum and kailyn. Normal visualized pulmonary arteries. Normal visualized aortic arch and descending thoracic aorta. Normal visualized thoracic spine. Normal visualized ribs, clavicles, and shoulders. There is no demonstrated abnormality of the visualized soft tissue structures of the upper abdomen. RAD/Chest 1 View (Portable) IMPRESSION: Ill-defined patchy groundglass opacities are seen more prominent in the lung bases , may represent atypical pneumonia or viral pneumonia (COVID-19 ?). Electronically Signed: Ashley Tran MD at 6:57 EST Tel , Service support ,
--- NOTE | 2021-06-25 05:56 | EKG12_ITS ---
Test Reason : SOB Blood Pressure : / mmHG Vent. Rate : 090 BPM Atrial Rate : 090 BPM P-R Int : 152 ms QRS Dur : 078 ms QT Int : 372 ms P-R-T Axes : 056 026 071 degrees QTc Int : 455 ms Normal sinus rhythm ST & T wave abnormality Poor R wave progression Abnormal ECG Confirmed by HILDA CROCKER, JEREMY ([id number]), slot editor JLUIS TATE ([id number]) on 06/26/2021 9:25:59 AM Referred By: DARIANA Confirmed By:JEREMY STEVENS MD
[2021-06-25 06:29] LABS: Absolute Lymphocyte Count 1.14 X10^3/uL (0.83-4.51); Absolute Neutrophil Count 2.8 X10^3/uL (2.0-7.7); Basophil# 0.03 X10^3/uL; Basophil% 0.7 % (0-1); Hematocrit 45.7 % (37-47); Hemoglobin 15.5 g/dL (12.0-15.0); Lymphocyte # 1.14 X10^3/ul (0.83-4.51); Lymphocyte % 25.6 % (19-41); Mean Corp Hgb Conc 33.9 g/dL (32-36); Mean Corpuscular Hgb 29.5 pg (27.0-32.0); Mean Corpuscular Volume 86.9 fL (81-99); Monocyte# 0.43 X10^3/uL; Monocyte% 9.7 % (0-10); NRBC Flagged by Analyzer 0 % (0-5); Neutrophil # 2.84 X10^3/uL (2.7-7.7); Neutrophil % 63.8 % (47-70); Platelet Count 186 K/mm3 (150-450); RBC Distribution Width CV 12.9 % (11.6-14.6); Red Blood Count 5.26 M/mm3 (4.2-5.4); White Blood Count 4.5 K/mm3 (4.4-11.0)
[2021-06-25] MEDS: Famotidine 200 MG/20 ML MDV 20 MG in 0.9% Normal Saline (Pres. free 8 ML 300 MG IV (06:29)
[2021-06-25] MEDS: Ondansetron 4 MG/2 ML Vial IV (06:29)
[2021-06-25 06:52] LABS: ALB/GLOB Ratio 0.6 RATIO (0.9-2.4); AST(SGOT) 53 U/L (15-37); Alanine Aminotransfer ALT/SGPT 79 U/L (13-56); Albumin, Serum 2.9 g/dL (3.2-5.0); Alkaline Phosphatase 76 U/L (45-117); Anion Gap 10 (5-15); BUN 10 mg/dL (7-18); BUN/Creat Ratio 13.6 RATIO (10-20); Calcium,Total 8.2 mg/dL (8.5-10.1); Chloride 98 mmol/L (98-107); Creatinine, Serum 0.74 mg/dL (0.55-1.02); EST Glomerular Filtration Rate 83 mL/min (>60); Est Glom Filt Rate - Afr Amer 100 mL/min (>60); Estimated Creatinine Clearance 43.92 ml/min; Globulin 4.9 g/dL (2.2-4.2); Glucose 300 mg/dL (74-106); Lipase 83 U/L (73-393); Protein, Total 7.8 g/dL (6.4-8.2); Sodium Level 131 mmol/L (136-145); Troponin-I HS 17 pg/mL (3.0-54.0)
--- NOTE | 2021-06-25 08:21 | EDS_ITS ---
HPI History of Present Illness Chief Complaint: General Illness Informant: patient Narrative Narrative: Patient is a 71-year-old female recently diagnosed with Covid. She is presenting with worsening epigastric abdominal pain with nausea and vomiting. Patient started having symptoms on 06/18. She took a home test that day which is positive. She is not been evaluated for monoclonal antibody. She initially had cough, fever and sinus congestion. The respiratory symptoms have improved however she is continued to have fevers. Her PCP prescribed her Augmentin for concern of a sinus infection she is having nasal congestion. She is only able to take 1 dose and stopped taking it because of her GI symptoms. She also does complain of back pain and myalgias. No urinary symptoms. No other complaints at this time. She denies feeling short of breath. Her also has Covid. [facility] Medical History Diabetes Stroke/cerebrovascular accident Home Medications lorazepam 0.5 mg PO DAILY PRN PRN 11/10/16 [History Last Taken 04/07/18 00:00] famotidine [Pepcid] 20 mg PO DAILY #14 tab 06/25/21 [Rx Last Taken Unknown] ondansetron HCl [Zofran] 4 mg PO Q6H PRN #14 tab 06/25/21 [Rx Last Taken Unknown] Allergy/AdvReac Type Severity Reaction Status Date / Time caffeine AdvReac Other Verified 06/25/21 05:30 diphenhydramine AdvReac PT UNSURE Verified 06/25/21 05:30 [From Benadryl] OF REACTION prochlorperazine AdvReac Other Verified 06/25/21 05:30 [From Compazine] Surgical History H/O abdominal hysterectomy Hx of cholecystectomy Social History Smoking Status: Never smoker ROS ROS ED Constitutional Constitutional ED: Reports chills and fever(s) Eyes Eyes: Denies change in vision ENT ENT ED: Reports rhinorrhea; Denies sore throat Cardiovascular Cardiovascular: Denies chest pain Respiratory/Chest Respiratory/Chest: Reports cough; Denies dyspnea Gastrointestinal Gastrointestinal: Reports abdominal pain, nausea and vomiting; Denies constipation or diarrhea Genitourinary Genitourinary ED: Denies dysuria or hematuria Musculoskeletal Musculoskeletal: Reports back pain and myalgias; Denies neck pain Integumentary Denies rash Neurologic Neurologic: Reports headache(s) and weakness EXAM Physical Exam Const Vital Signs: 06/25/21 05:33 06/25/21 05:39 06/25/21 05:40 Temperature 99.0 F Temperature Source Temporal Pulse Rate 91 Respiratory Rate 20 H Respiratory Effort Normal Respiratory Pattern Normal Blood Pressure 208/79 H Blood Pressure Mean 122 Pulse Ox 93 Oxygen Delivery Method Room Air 06/25/21 06:16 06/25/21 08:01 06/25/21 08:08 Temperature 98.0 F 99.5 F H Temperature Source Temporal Temporal Pulse Rate 90 86 87 Respiratory Rate 19 H 20 H 28 H Respiratory Effort Respiratory Pattern Blood Pressure 192/81 H 142/86 H 165/77 H Blood Pressure Mean 118 104 106 Pulse Ox 96 93 96 Oxygen Delivery Method Room Air Room Air Room Air Positive well nourished and well developed General Appearance ED: well developed HEENT Reports TM's clear and moist mucous membranes Tympanic Membrane ED: Yes TM's clear Eyes PERRL and EOMs intact bilaterally Neck no lymphadenopathy, supple and no JVD Chest Wall inspection of chest normal Resp normal respiratory effort and clear to auscultation bilaterally Cardio regular rate, regular rhythm and no murmurs GI normal to inspection, nondistended, normoactive bowel sounds GI Narrative: Negative Harmon sign Palpation: soft and tender epigastric Neuro oriented x3 and no sensory deficits noted Sensorium / Orientation: alert Motor Exam: strength 5/5 throughout; Negative for general weakness Psych mental status grossly normal Skin no rashes or lesions noted and no wounds MDM MDM MDM Narrative Medical decision making narrative: Patient evaluated for nausea and vomiting as well as epigastric abdominal discomfort. I suspect it is related to her recent Covid infection. She is not any respiratory symptoms. Initially she is hypertensive with a low-grade temperature. Patient is given IV fluids, Pepcid and Zofran. On reevaluation she states she feels much better. She is ambulated and does not have any hypoxia. She remains hemodynamically stable in the emergency room. She does have a mild hyponatremia of 131. I suspect she is mildly dehydrated. Will be discharged home with referral for outpatient monoclonal antibody infusion. Is counseled on return precautions. Is given a prescription for Zofran and Pepcid. Patient and spouse verbalized agreement understand this plan. Patient discharged home in stable condition. She is ins tructed to stop taking Augmentin as I do not think she has a secondary bacterial infection. Lab Data Attestation: I reviewed the patient's lab results. Labs: Laboratory Results - last 24 hr 06/25/21 06/25/21 06:21 06:21 WBC 4.5 RBC 5.26 Hgb 15.5 H Hct 45.7 MCV 86.9 MCH 29.5 MCHC 33.9 RDW Std Deviation 41.0 RDW Coeff of Michaela 12.9 Plt Count 186 MPV 11.0 Immature Gran % (Auto) 0.200 Neut % (Auto) 63.8 Lymph % (Auto) 25.6 [place] % (Auto) 9.7 Eos % (Auto) 0.0 Baso % (Auto) 0.7 Absolute Neuts (auto) 2.8 Absolute Lymphs (auto) 1.14 Nucleated RBC % 0 Sodium 131 L Potassium 4.0 Chloride 98 Carbon Dioxide 23.0 Anion Gap 10 BUN 10 Creatinine 0.74 Estim Creat Clear Calc 43.92 Est GFR (MDRD) Af Amer 100 Est GFR (MDRD) Non-Af 83 BUN/Creatinine Ratio 13.6 Glucose 300 H Calcium 8.2 L Total Bilirubin 0.60 AST 53 H ALT 79 H Alkaline Phosphatase 76 Troponin I High Sens 17 Total Protein 7.8 Albumin 2.9 L Globulin 4.9 H Albumin/Globulin Ratio 0.6 L Lipase 83 Radiography Chest X-Ray - ED: 1 View, Read by ED Physician, Read by Radiologist, Right Infiltrate and Left Infiltrate Diagnostic Testing: Clinical Impression(s) from Imaging Studies Chest X-Ray 06/25/21 05:56 IMPRESSION: Ill-defined patchy groundglass opacities are seen more prominent in the lung bases , may represent atypical pneumonia or viral pneumonia (COVID-19 ?). Electronically Signed: Ashley Tran MD at 6:57 EST Tel , Service support , Rhythm Strip Rhythm Strip: Sinus Rhythm Rate: 90 Ectopy: None EKG Initial EKG: Attestation: I personally reviewed and interpreted this EKG as follows: Interpretation: Sinus Rhythm Comments: Normal sinus rhythm rate of 90 Normal axis Normal intervals Normal ST segments Discharge Plan Triage Chief Complaint: General Illness ED Provider: Yumiko Stewart Dx/Rx/DC Orders Clinical Impression: Nausea & vomiting, Acute epigastric pain, COVID-19 Instructions: Coronavirus Disease 2019 (COVID-19): Caring for Yourself or Others, ED Diet for Vomiting or ..., ED Epigastric Pain Uncertain Cause Prescriptions: New ondansetron HCl [Zofran] 4 mg tablet 4 mg PO Q6H PRN (Reason: nausea and vomiting) Qty: 14 RF: 0 famotidine [Pepcid] 20 mg tablet 20 mg PO DAILY Qty: 14 RF: 0 Discontinued amoxicillin-pot clavulanate 875-125 mg tablet 1 tab PO DAILY RF: 0 No Action lorazepam 0.5 MG tablet 0.5 mg PO DAILY PRN PRN (Reason: Anxiety) RF: 0 Other Ambulatory Orders: COVID Outpatient Monoclonal Antibody Referral (Routine) Timeframe: 1 Day Facility: [facility] - Location: [facility] Ordered By: Dr. Yumiko Stewart Primary Care Provider: Brendon Little Referrals: Brendon Little MD [Primary Care Provider] - Activity Restrictions/Additional Instructions: Drink plenty of fluids. Return the emergency room with any worsening symptoms. Especially if your oxygen is going below 90% or you have increased work of breathing. Avoid ibuprofen as it can upset your stomach more. Take Tylenol as needed for fever. Disposition Disposition: Home, Self Care
== END 2021-06-25 08:58 | disposition home or self-care (01) ==
PROVIDERS: Emergency Provider Emergency Medicine; PCP Family Medicine
DX: U07.1 COVID-19 (principal); R10.13 Epigastric pain; E87.1 Hypo-osmolality and hyponatremia; E11.9 Type 2 diabetes mellitus without complications; Z86.73 Personal history of transient ischemic attack (TIA), and cerebral infarction without residual deficits
CPT/HCPCS: 71045; 80053; 83690; 84484; 85025; 87426; 93005; 96361; 96374; 96375; 99284; J2405; J3490

== ENCOUNTER 2021-06-26 17:12 | Outpatient (CLI) | payer MEDICARE, SELFPAY ==
[2021-06-26] MEDS: 0.9% Saline Lock 10 ML Syringe IV (17:38)
[2021-06-26 17:40] VITALS: BP 176/60; PULSE 80; RESP 16; TEMP 37.3; O2SAT 96; BMI 37.0
[2021-06-26 18:33] VITALS: BP 151/64; PULSE 81; RESP 16; TEMP 37.8; O2SAT 96
[2021-06-26 19:18] VITALS: TEMP 38.2
[2021-06-26] MEDS: Acetaminophen 325 MG Tablet 650 MG PO (19:18)
[2021-06-26 19:35] VITALS: BP 161/60; PULSE 85; RESP 16; TEMP 38.2; O2SAT 98
== END 2021-06-26 19:35 | disposition home or self-care (01) ==
LOC: MS3OUT 17:13 → MS3 17:14
PROVIDERS: PCP Family Medicine; Referring Provider Nurse Practitioner Adult Health; Visit Provider Nurse Practitioner Adult Health
DX: Z23 Encounter for immunization (principal); U07.1 COVID-19
CPT/HCPCS: J7050; M0245; Q0245; A4216

== ENCOUNTER 2021-06-27 04:26 | Emergency (ER) | payer MEDICARE, SELFPAY ==
[2021-06-27 04:26] VITALS: BP 189/64; PULSE 113; RESP 22; TEMP 39.2; O2SAT 92; BMI 355.6
[2021-06-27 04:34] VITALS: BP 189/64; PULSE 96; RESP 21; O2SAT 90
--- NOTE | 2021-06-27 04:47 | EDS_ITS ---
HPI History of Present Illness Chief Complaint: Weakness Informant: patient and spouse/S.O. Narrative Narrative: Patient presents with just not feeling well with Covid. Her symptoms started about the second of this month. She just had monoclonal antibody last night at about 8 PM. She was seen here a few days ago. She had epigastric pain with nausea and some vomiting. She has not vomited for 2 days. Epigastric pain is progressively improving. She was prescribed Pepcid and Zofran. She took these initially but then she stopped taking them because she wanted to see how well she would do without them. That has not gone real well for her. She has some nausea off and on but is not vomiting. But she states she feels weak because she is not eating or drinking anything. She does not eat or drink anything because she does not have appetite or any interest in food. Its not because she is not able to or it causes specific symptoms. Although she is not having vomiting she still is having some watery nonbloody diarrhea. She is not having chest pain. She states she had coughing early on in the illness but that is gotten better. She has an O2 sat at home. She is normally running 91 to 93% but does not feel dyspneic at all. Nothing specifically is making her symptoms better or worse. She has had fevers. She did take Tylenol about an hour ago now. [facility] Medical History Diabetes Stroke/cerebrovascular accident Home Medications lorazepam 0.5 mg PO DAILY PRN PRN 11/10/16 [History Last Taken 04/07/18 00:00] promethazine 25 mg PO TID PRN #10 tab 06/27/21 [Rx Last Taken Unknown] Allergy/AdvReac Type Severity Reaction Status Date / Time caffeine AdvReac Other Verified 06/25/21 05:30 diphenhydramine AdvReac PT UNSURE Verified 06/25/21 05:30 [From Benadryl] OF REACTION prochlorperazine AdvReac Other Verified 06/25/21 05:30 [From Compazine] Surgical History H/O abdominal hysterectomy Hx of cholecystectomy Social History Smoking Status: Never smoker ROS ROS ED Constitutional Constitutional ED: Reports chills and fever(s); Denies sweats Eyes Eyes: Denies blurry vision or change in vision ENT ENT ED: Reports rhinorrhea; Denies ear pain or sore throat Cardiovascular Cardiovascular: Denies chest pain or palpitations Respiratory/Chest Respiratory/Chest: Reports cough; Denies dyspnea or sputum Gastrointestinal Gastrointestinal: Reports diarrhea and nausea; Denies abdominal pain or vomiting Genitourinary Genitourinary ED: Denies dysuria, hematuria or urinary frequency Musculoskeletal Musculoskeletal: Reports myalgias Integumentary Denies rash Neurologic Neurologic: Denies headache(s), paresthesias or weakness Psychiatric Psychiatric: Reports anxiety Endocrine Endocrinology: Denies polydipsia or polyuria Allergic/Immunologic Allergic/Immunologic ED: Denies urticaria EXAM Physical Exam Const Vital Signs: 06/27/21 04:26 06/27/21 04:33 06/27/21 04:34 Temperature 102.5 F H Temperature Source Oral Pulse Rate 113 H 96 Respiratory Rate 22 H 21 H Respiratory Effort Normal Respiratory Pattern Normal Blood Pressure 189/64 H 189/64 H Blood Pressure Mean 105 105 Pulse Ox 92 90 Oxygen Delivery Method Room Air Room Air Oxygen Flow Rate (L/min) 06/27/21 05:45 06/27/21 05:46 Temperature Temperature Source Pulse Rate Respiratory Rate Respiratory Effort Respiratory Pattern Blood Pressure Blood Pressure Mean Pulse Ox 87 94 Oxygen Delivery Method Room Air Nasal Cannula Oxygen Flow Rate (L/min) 2 Positive well nourished and well developed General Appearance ED: well developed and NAD HEENT Reports dry mucous membranes Negative for trauma or tenderness Mouth ED: Yes dry mucous membranes Mouth: dry mucous membranes Eyes General Eye ED: Negative for pale conjunctiva or scleral icterus Neck no lymphadenopathy and no JVD General: Negative for tenderness Chest Wall inspection of chest normal Resp normal respiratory effort and clear to auscultation bilaterally Effort and Inspection: Negative for pain with movement Auscultation: Negative for rales, rhonchi or wheezes Cardio regular rate, regular rhythm and no murmurs GI normal to inspection, nondistended, normoactive bowel sounds, non-tender and non-distended Auscultation: normoactive bowel sounds Palpation: soft Back/Spine no CVA tenderness Extremity normal to inspection General Extremety ED: Negative for edema or tenderness General Extremity: Negative for edema Neuro oriented x3 Sensorium / Orientation: alert Psych mental status grossly normal Skin no rashes or lesions noted MDM MDM MDM Narrative Medical decision making narrative: Patient's blood work shows mildly elevated hemoglobin. Sodium is a little bit low at 130 but I think this should correct with dietary increase. Glucose is a little high at 235 but she has had this much higher before. Patient does feel better with some fluids and Zofran. I will write her for some Phenergan also. One of her additional complaints that she is not sleeping well at night. Phenergan might help with the nausea and sleep. She is not hypoxic. She is not actually short of breath. Her cough is improved. She can check her oxygen at home. I think we can get her home at this time and she is comfortable with this plan. We did discuss reasons to return. She has an allergy to Compazine but it is unclear the exact problem. It sounds like this might be more of a dystonic reaction. Lab Data Attestation: I reviewed the patient's lab results. Labs: Laboratory Results - last 24 hr 06/27/21 06/27/21 04:32 04:32 WBC 6.9 RBC 5.19 Hgb 15.2 H Hct 45.1 MCV 86.9 MCH 29.3 MCHC 33.7 RDW Std Deviation 40.6 RDW Coeff of Michaela 12.9 Plt Count 192 MPV 11.0 Immature Gran % (Auto) 0.300 Neut % (Auto) 60.6 Lymph % (Auto) 29.0 [place] % (Auto) 7.8 Eos % (Auto) 2.0 Baso % (Auto) 0.3 Absolute Neuts (auto) 4.2 Absolute Lymphs (auto) 2.00 Nucleated RBC % 0 Sodium 130 L Potassium 3.5 Chloride 97 L Carbon Dioxide 24.0 Anion Gap 9 BUN 11 Creatinine 0.79 Estim Creat Clear Calc 43.92 Est GFR (MDRD) Af Amer 93 Est GFR (MDRD) Non-Af 77 BUN/Creatinine Ratio 13.9 Glucose 235 H Calcium 7.9 L Discharge Plan Triage Chief Complaint: Weakness ED Provider: Lamine Topete Dx/Rx/DC Orders Clinical Impression: Insomnia, Nausea, COVID Instructions: Caring for Someone Who Has COVID-19 Prescriptions: New promethazine 25 mg tablet 25 mg PO TID PRN (Reason: nausea and vomiting) Qty: 10 RF: 0 No Action lorazepam 0.5 MG tablet 0.5 mg PO DAILY PRN PRN (Reason: Anxiety) RF: 0 Primary Care Provider: Brendon Little Referrals: Brendon Little MD [Primary Care Provider] - Disposition Disposition: Home, Self Care
[2021-06-27 04:51] LABS: Absolute Neutrophil Count 4.2 X10^3/uL (2.0-7.7); Basophil# 0.02 X10^3/uL; Basophil% 0.3 % (0-1); Eosinophil# 0.14 X10^3/uL; Hematocrit 45.1 % (37-47); Hemoglobin 15.2 g/dL (12.0-15.0); Mean Corp Hgb Conc 33.7 g/dL (32-36); Mean Corpuscular Hgb 29.3 pg (27.0-32.0); Mean Corpuscular Volume 86.9 fL (81-99); Monocyte# 0.54 X10^3/uL; Monocyte% 7.8 % (0-10); NRBC Flagged by Analyzer 0 % (0-5); Neutrophil # 4.18 X10^3/uL (2.7-7.7); Neutrophil % 60.6 % (47-70); Platelet Count 192 K/mm3 (150-450); RBC Distribution Width CV 12.9 % (11.6-14.6); RBC Distribution Width SD 40.6 fl (35.1-43.9); Red Blood Count 5.19 M/mm3 (4.2-5.4); White Blood Count 6.9 K/mm3 (4.4-11.0)
[2021-06-27 05:02] LABS: Anion Gap 9 (5-15); BUN 11 mg/dL (7-18); BUN/Creat Ratio 13.9 RATIO (10-20); Calcium,Total 7.9 mg/dL (8.5-10.1); Chloride 97 mmol/L (98-107); Creatinine, Serum 0.79 mg/dL (0.55-1.02); EST Glomerular Filtration Rate 77 mL/min (>60); Est Glom Filt Rate - Afr Amer 93 mL/min (>60); Estimated Creatinine Clearance 43.92 ml/min; Glucose 235 mg/dL (74-106); Potassium 3.5 mmol/L (3.5-5.1); Sodium Level 130 mmol/L (136-145)
[2021-06-27] MEDS: Ondansetron 4 MG/2 ML Vial IV (05:22)
[2021-06-27] MEDS: 0.9% Normal Saline 1,000 ML 1000 ML IV (05:22)
[2021-06-27 05:45] VITALS: O2SAT 87
[2021-06-27 05:46] VITALS: O2SAT 94
[2021-06-27 07:59] VITALS: BP 158/71; PULSE 85; RESP 20; O2SAT 94
== END 2021-06-27 08:00 | disposition home or self-care (01) ==
PROVIDERS: Emergency Provider Emergency Medicine; PCP Family Medicine
DX: U07.1 COVID-19 (principal); G47.00 Insomnia, unspecified; R11.0 Nausea; E11.9 Type 2 diabetes mellitus without complications; Z86.73 Personal history of transient ischemic attack (TIA), and cerebral infarction without residual deficits
CPT/HCPCS: 80048; 85025; 96361; 96374; 99283; J2405

== ENCOUNTER 2021-07-02 18:39 | Emergency (ER) | payer MEDICARE, SELFPAY ==
[2021-07-02 18:40] VITALS: BP 202/73; PULSE 90; RESP 18; TEMP 36.2; O2SAT 95; BMI 35.6
--- NOTE | 2021-07-02 19:35 | CT_ITS ---
EXAM: CT ABDOMEN AND PELVIS WITH INTRAVENOUS CONTRAST CLINICAL INDICATION: Abdominal pain TECHNIQUE: Helically acquired images were obtained of the abdomen and pelvis with intravenous contrast. This CT exam was performed using one or more of the following dose reduction techniques: automated exposure control, adjustment of the mA and/or kV according to patient size, and/or use of iterative reconstruction technique. This report was created using [employer] report generation technology. CONTRAST: Oral T IV Gastrografin T 100mL Isovue-300 COMPARISON: None. FINDINGS: LOWER THORAX: Lower lobe pneumonia. No cardiomegaly. No significant pericardial effusion. ABDOMEN: LIVER: There is diffuse fatty infiltration of the liver. GALLBLADDER AND BILE DUCTS: The gallbladder is surgically absent. No intra- or extrahepatic biliary ductal dilation. PANCREAS: Unremarkable. No focal cystic or solid mass. SPLEEN: Unremarkable. Normal size without focal cystic or solid mass. ADRENALS: Unremarkable. No nodules. KIDNEYS AND URETERS: Simple cyst of the right kidney. No follow-up required. Normal renal size and position. No hydronephrosis. STOMACH AND BOWEL: There is an umbilical hernia containing fat. There is no bowel involvement. There is no incarceration. There is no findings suggesting that this is causing a bowel obstruction. There are multiple diverticuli of the colon. There is diverticulosis but no radiographic signs for diverticulitis. PELVIS: APPENDIX: No evidence of acute appendicitis. BLADDER: Unremarkable. REPRODUCTIVE: The uterus is not visualized and is most likely surgically absent. ABDOMEN and PELVIS: INTRAPERITONEAL SPACE: Unremarkable. No ascites or other fluid collection. No free air. BONES/JOINTS: There is bilateral neural foraminal stenosis at L4-5 and L5-S1. Vacuum disc phenomenon. Degenerative findings in the lumbar spine. No suspicious lytic or blastic abnormality. SOFT TISSUES: See above. VASCULATURE: There are calcifications of the abdominal aorta. This is consistent for atherosclerotic disease. There is no abdominal aortic aneurysm. LYMPH NODES: Unremarkable. No enlarged lymph nodes. CT/Abdomen/Pelvis WITH Contrast IMPRESSION: 1. Lower lobe pneumonia. 2. There is diffuse fatty infiltration of the liver. Electronically Signed: Derrick De MD at 22:32 EST , Service support ,
[2021-07-02] MEDS: Ondansetron 4 MG/2 ML Vial IV (19:48)
[2021-07-02] MEDS: Morphine 4 MG/ML Syringe IV (19:48)
[2021-07-02] MEDS: 0.9% Normal Saline 1,000 ML 1000 ML IV (19:48)
[2021-07-02 20:08] LABS: Absolute Lymphocyte Count 2.55 X10^3/uL (0.83-4.51); Absolute Neutrophil Count 3.6 X10^3/uL (2.0-7.7); Basophil# 0.07 X10^3/uL; Eosinophil# 0.07 X10^3/uL; Hematocrit 44.9 % (37-47); Hemoglobin 15.1 g/dL (12.0-15.0); Lymphocyte # 2.55 X10^3/ul (0.83-4.51); Lymphocyte % 35.7 % (19-41); Mean Corp Hgb Conc 33.6 g/dL (32-36); Mean Corpuscular Hgb 28.7 pg (27.0-32.0); Mean Corpuscular Volume 85.4 fL (81-99); Mean Platelet Vol. 10.8 fl (6.2-12.0); Monocyte# 0.86 X10^3/uL; NRBC Flagged by Analyzer 0 % (0-5); Neutrophil # 3.58 X10^3/uL (2.7-7.7); POSITIVE MORPHOLOGY YES; Platelet Count 359 K/mm3 (150-450); RBC Distribution Width CV 12.5 % (11.6-14.6); Red Blood Count 5.26 M/mm3 (4.2-5.4); White Blood Count 7.2 K/mm3 (4.4-11.0)
[2021-07-02 20:20] LABS: ALB/GLOB Ratio 0.6 RATIO (0.9-2.4); AST(SGOT) 48 U/L (15-37); Alanine Aminotransfer ALT/SGPT 56 U/L (13-56); Albumin, Serum 2.9 g/dL (3.2-5.0); Alkaline Phosphatase 71 U/L (45-117); Anion Gap 13 (5-15); BUN 8 mg/dL (7-18); BUN/Creat Ratio 12.5 RATIO (10-20); Calcium,Total 8.5 mg/dL (8.5-10.1); Chloride 102 mmol/L (98-107); Creatinine, Serum 0.64 mg/dL (0.55-1.02); EST Glomerular Filtration Rate 97 mL/min (>60); Est Glom Filt Rate - Afr Amer 118 mL/min (>60); Estimated Creatinine Clearance 43.92 ml/min; Globulin 5.1 g/dL (2.2-4.2); Glucose 193 mg/dL (74-106); Lipase 123 U/L (73-393); Sodium Level 138 mmol/L (136-145)
[2021-07-02 20:23] LABS: Differential Indicated SCAN CRITERIA MET
[2021-07-02 20:48] LABS: Differential Comment SCANNED
[2021-07-02 21:00] VITALS: PULSE 81; RESP 14; O2SAT 94
[2021-07-02 21:02] LABS: Bacteria 0 SEEN /hpf (None Seen); Mucous, Urine 0 SEEN /hpf (<or=2+)
[2021-07-02 21:04] LABS: Color, Urine Yellow (Yellow); Glucose, Dipstick Normal (Normal); Leukocyte Esterase-Dipstick 500 /ul (Negative); Nitrite-Dipstick Negative (Negative); Occult Blood-Urine 25 /ul (Negative); Protein-Dipstick 100 mg/dl (Negative); Urine Bilirubin Dipstick Negative (Negative); Urine Clarity Clear (Clear); Urine Urobilinogen 1 mg/dl (Normal)
[2021-07-02 21:18] LABS: Ketone-Dipstick 150 mg/dl (Negative)
[2021-07-02 21:19] LABS: Amorphous Sediment 1+ URATE; Red Blood Cells-Urine 0-5 SEEN /hpf (0-5); Squamous Epithelial Cells - UA 0-5 SEEN /hpf (5-10); White Blood Cells 25-50 SEEN /hpf (0-5)
[2021-07-02] MEDS: Morphine 2 MG/ML Syringe IV (21:35)
--- NOTE | 2021-07-02 21:43 | ED.VIS.GI ---
HPI HPI - GI History of Present Illness Chief Complaint: Abd Pain Informant: patient Abdominal Pain/Flank Pain Onset: Weeks (2) Context: Gradual Onset Timing: Continuous Quality: Sharp Location: Epigastric Worsened by: - (Nausea pill) Relieved by: Nothing Nausea/Vomiting/Emesis GI Symptom: Positive for Nausea and Vomiting Quality: Negative for Coffee ground and Hematemesis Diarrhea/Melena/Hematochezia GI Symptom: Positive for Diarrhea; Negative for Melena and Hematochezia Stool Quality: Positive for Watery Associated Symptoms Associated Symptoms: Negative for Dysuria and Hematuria Narrative Narrative: Patient presents with epigastric abdominal pain that has been constant for the past 2 weeks. Patient states that it has been gradually getting worse. Patient describes the pain is sharp. Patient states pain is over the epigastric area. Patient states it radiates straight through to her back. Patient states she was given a pill for nausea during one of her other visits here and that made her pain worse. Patient states nothing seems to make the pain any better. Patient admits to some nausea and vomiting. Patient denies any hematemesis or coffee-ground emesis. Patient admits to diarrhea but denies any melena or hematochezia. Patient states her diarrhea is watery. Patient denies any dysuria or hematuria. Patient states she was diagnosed with Covid 2 weeks ago and that is when her pain began. [facility] Medical History Diabetes Stroke/cerebrovascular accident Home Medications lorazepam 0.5 mg PO DAILY PRN PRN 11/10/16 [History Last Taken 04/07/18 00:00] promethazine 25 mg PO TID PRN #10 tab 06/27/21 [Rx Last Taken Unknown] levofloxacin 500 mg PO DAILY #7 tab 07/02/21 [Rx Last Taken Unknown] omeprazole 20 mg PO DAILY #30 capsule 07/02/21 [Rx Last Taken Unknown] tramadol 50 mg PO Q4H PRN PRN 3 Days #20 tab 07/02/21 [Rx Last Taken Unknown] Allergy/AdvReac Type Severity Reaction Status Date / Time caffeine AdvReac Other Verified 07/02/21 18:40 diphenhydramine AdvReac PT UNSURE Verified 07/02/21 18:40 [From Benadryl] OF REACTION prochlorperazine AdvReac Other Verified 07/02/21 18:40 [From Compazine] Surgical History H/O abdominal hysterectomy Hx of cholecystectomy Social History Smoking Status: Never smoker ROS ROS ED Constitutional Constitutional ED: Denies chills or fever(s) Eyes Eyes: Denies blurry vision or change in vision ENT ENT ED: Denies rhinorrhea or sore throat Cardiovascular Cardiovascular: Denies chest pain or palpitations Respiratory/Chest Respiratory/Chest: Reports cough; Denies dyspnea Gastrointestinal Gastrointestinal: Reports abdominal pain, diarrhea, nausea and vomiting Genitourinary Genitourinary ED: Denies dysuria or hematuria Musculoskeletal Musculoskeletal: Reports back pain; Denies neck pain Integumentary Denies abscess or rash Neurologic Neurologic: Denies headache(s) or weakness Allergic/Immunologic Allergic/Immunologic ED: Denies mouth swelling or urticaria EXAM Physical Exam Const Vital Signs: 07/02/21 18:40 07/02/21 21:00 Temperature 97.1 F L Temperature Source Temporal Pulse Rate 90 81 Respiratory Rate 18 14 Blood Pressure 202/73 H Blood Pressure Mean 116 Pulse Ox 95 94 Oxygen Delivery Method Room Air Room Air Positive well nourished and well developed General Appearance ED: well developed HEENT Reports moist mucous membranes Neck supple and no JVD Resp normal respiratory effort and clear to auscultation bilaterally Cardio regular rate, regular rhythm and no murmurs GI normal to inspection, nondistended, normoactive bowel sounds Auscultation: normoactive bowel sounds Palpation: soft and tender epigastric; Negative for guarding or rebound tenderness present Extremity normal to inspection General Extremety ED: Negative for edema or tenderness General Extremity: Negative for edema Neuro oriented x3, CN's II-XII intact bilaterally and no sensory deficits noted Sensorium / Orientation: alert Motor Exam: strength 5/5 throughout Psych mental status grossly normal Skin no rashes or lesions noted MDM MDM MDM Narrative Medical decision making narrative: Patient was given IV fluids, morphine, and Zofran here. CBC was within normal limits. Comprehensive metabolic profile showed a mild hypokalemia of 3.0. Glucose was 193. Urinalysis shows leukocyte esterase of 500 with 25-50 white blood cells. Urine ketones were 150. CT scan of the abdomen and pelvis was obtained. There is a lower lobe pneumonia noted. There is diffuse fatty infiltration of the liver. There is no bowel obstruction. There is an umbilical hernia noted that only contains fat. There is no involvement of the bowel. Pancreas is unremarkable. This was interpreted by the radiologist and reviewed by myself. Patient was given a prescription for Levaquin. Patient was instructed to bring plenty of fluids. Patient was also given prescriptions for Prilosec and tramadol. Patient was instructed to follow-up with her primary care physician in 3 to 5 days. Patient understood and was agreeable with the plan. All questions were answered. Lab Data Attestation: I reviewed the patient's lab results. Labs: Laboratory Results - last 24 hr 07/02/21 07/02/21 07/02/21 19:00 19:00 20:55 WBC 7.2 RBC 5.26 Hgb 15.1 H Hct 44.9 MCV 85.4 MCH 28.7 MCHC 33.6 RDW Std Deviation 39.0 RDW Coeff of Michaela 12.5 Plt Count 359 MPV 10.8 Immature Gran % (Auto) 0.300 Neut % (Auto) 50.0 Lymph % (Auto) 35.7 [place] % (Auto) 12.0 H Eos % (Auto) 1.0 Baso % (Auto) 1.0 Absolute Neuts (auto) 3.6 Absolute Lymphs (auto) 2.55 Nucleated RBC % 0 Differential Comment SCANNED Sodium 138 Potassium 3.0 L Chloride 102 Carbon Dioxide 23.0 Anion Gap 13 BUN 8 Creatinine 0.64 Estim Creat Clear Calc 43.92 Est GFR (MDRD) Af Amer 118 Est GFR (MDRD) Non-Af 97 BUN/Creatinine Ratio 12.5 Glucose 193 H Calcium 8.5 Total Bilirubin 0.90 AST 48 H ALT 56 Alkaline Phosphatase 71 Total Protein 8.0 Albumin 2.9 L Globulin 5.1 H Albumin/Globulin Ratio 0.6 L Lipase 123 Urine Color Yellow Urine Clarity Clear Urine pH 6.0 Ur Specific [place] 1.020 Urine Protein 100 H Urine Glucose (UA) Normal Urine Ketones 150 A* Urine Occult Blood 25 H Urine Nitrite Negative Urine Bilirubin Negative Urine Urobilinogen 1 H Ur Leukocyte Esterase 500 H Urine RBC 0-5 SEEN Urine WBC 25-50 SEEN Ur Squamous Epith Cells 0-5 SEEN Amorphous Sediment 1+ URATE Urine Bacteria 0 SEEN Urine Mucus 0 SEEN Radiography Diagnostic Testing: Clinical Impression(s) from Imaging Studies Abdomen/Pelvis CT 07/02/21 19:35 IMPRESSION: 1. Lower lobe pneumonia. 2. There is diffuse fatty infiltration of the liver. Electronically Signed: Derrick De MD at 22:32 EST , Service support , Discharge Plan Triage Chief Complaint: Abd Pain ED Provider: Dg Javed Dx/Rx/DC Orders Clinical Impression: Acute epigastric pain, Urinary tract infection, Pneumonia Prescriptions: New tramadol 50 MG tablet 50 mg PO Q4H PRN PRN (Reason: Pain) 3 Days Qty: 20 RF: 0 omeprazole [omeprazole] 20 MG capsule 20 mg PO DAILY Qty: 30 RF: 0 levofloxacin [levofloxacin] 500 MG tablet 500 mg PO DAILY Qty: 7 RF: 0 No Action lorazepam 0.5 MG tablet 0.5 mg PO DAILY PRN PRN (Reason: Anxiety) RF: 0 promethazine 25 mg tablet 25 mg PO TID PRN (Reason: nausea and vomiting) Qty: 10 RF: 0 Primary Care Provider: Brendon Little Referrals: Brendon Little MD [Primary Care Provider] - 3-5 Days Disposition Disposition: Home, Self Care
[2021-07-02 23:03] VITALS: BP 176/86; PULSE 88; RESP 16; O2SAT 94
== END 2021-07-02 23:09 | disposition home or self-care (01) ==
PROVIDERS: Emergency Provider Emergency Medicine; PCP Family Medicine
DX: J18.9 Pneumonia, unspecified organism (principal); N39.0 Urinary tract infection, site not specified; R10.13 Epigastric pain; E87.6 Hypokalemia; E11.9 Type 2 diabetes mellitus without complications; K76.0 Fatty (change of) liver, not elsewhere classified; Z86.73 Personal history of transient ischemic attack (TIA), and cerebral infarction without residual deficits; Z86.16 Personal history of COVID-19; Z79.899 Other long term (current) drug therapy
CPT/HCPCS: 74177; 80053; 81001; 83690; 85025; 96361; 96374; 96375; 96376; 99282; J7030; Q9967; A4216; J2405

== ENCOUNTER → 2022-08-29 | Outpatient (CLI) | payer MEDICARE, SELFPAY | END | disposition home or self-care (01) | LOC: LABSPEC 10:35 | PROVIDERS: PCP Family Medicine; Visit Provider Student in an Organized Health Care Education/Training Program | DX: N76.0 Acute vaginitis (principal) | CPT/HCPCS: 87077; 87086; 87088; 87186 ==

== ENCOUNTER → 2024-04-11 | Outpatient (CLI) | payer MEDICARE, SELFPAY ==
--- NOTE | 2024-04-11 09:38 | BI_ITS ---
MAMMOGRAPHY - BILATERAL SCREENING REASON FOR EXAM: Female, 73 years old. Routine annual screening examination. PERTINENT HISTORY: Unknown. TECHNIQUE: Digital bilateral breast jonatan (3D mammographic acquisition) in the CC and MLO projections. 2-D mediolateral oblique (MLO) and craniocaudad (CC) views of both breasts were obtained. CAD: Full Field Digital Mammography with Computer Added Detection was performed. COMPARISON: Comparison is made with prior study dated April 04, 2021 August 14, 2020. FINDINGS: Breast Composition: There are scattered areas of fibroglandular density. There are no dominant masses or suspicious calcifications. No other significant abnormalities are identified. There has been no significant change since the prior study. BI/SCRN MAMM (CAD)W/JONATAN BILAT IMPRESSION: Stable bilateral screening mammogram. Yearly follow-up mammogram recommended. (A) ASSESSMENT CATEGORY: BIRADS Category 1: Negative. A letter regarding these results will be sent to the patient by the facility within 30 days. Approximately 10% of breast cancers are not detected by mammography. A normal mammogram should not delay biopsy of a clinically suspicious abnormality. [id number] Electronically Signed: Rupesh Morris MD at 10:28 EDT ,
== END | disposition home or self-care (01) ==
LOC: OPBI 09:37
PROVIDERS: PCP Family Medicine; Referring Provider Family Medicine; Visit Provider Family Medicine
DX: Z12.31 Encounter for screening mammogram for malignant neoplasm of breast (principal)
CPT/HCPCS: 77063; 77067

== ENCOUNTER 2024-04-26 09:00 | Outpatient (RCR) | payer MEDICARE, SELFPAY ==
--- NOTE | 2024-04-04 18:20 | HP.PTEVAL_ITS ---
Patient's Visit Information Visit Information Visit Information: CHUCK BLANCHARD is a 73 year old F referred to Physical Therapy by Dr. Luis Hernandez DO with a diagnosis of SCIATICA AND ROBERT KNEE OA. Date of Evaluation: 04/04/24 Physical Therapist: Gayle Clark, PT, Cert MDT Visit Plan Frequency: 2-3x /Week Duration: 6-8 WKS Plan: POSTURE CORRECTION/STRENGTHENING, INSTRUCTION IN APPROPRIATE BODY MECHANICS AND ACTIVITY MODIFICATIONS. DLS STARTING WITH A NEUTRAL SPINE PROGRESSING ROM TOLERATED. ROBERT LE ROM, STRETCHING AND STRENGTHENING. HEP INSTRUCTION. 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 Present symptoms: LOW BACK PAIN AND ROBERT LE PAIN INCLUDING THIGHS, KNEES, CALVES, ANKLES AND FEET. DENIES LE NUMBESS AND TINGLING. Present since: CHRONIC Pain Scale: WORST 8/10, LEAST 0/10 Currently: 5/10 Is it getting better, worse or staying the same: GETTING BETTER Commenced as a result of: NO APPARENT REASON Worse: WALKING, STIFF IN THE MORNING, STEPS. Better: SITTING DOWN EASES IT, T[place], KNEE INJECTIONS SEEM TO HAVE HELPED SOME (REC'D INJECTIONS ROBERT KNEES: 02/26/24, 03/04/24, 03/11/24) Disturbed sleep: YES. DIFFICULT TO FALL ASLEEP Previous history/Previous treatment: NO BACK INJECTIONS. NO BACK OR KNEE SURGERY. NO PT. H/O SOME CHIROPRACTIC FOR BACK BUT GOT TO THE POINT IT WASN'T HELPING. Treatment this episode: KNEE INJECTIONS. Coughing/sneezing/straining: NEGATIVE FOR PAIN Gait: INDEP WITHOUT AD. DENIES FALLS Bowel or Bladder Dysfunction: WEARING DEPENDS - FOR MORE THAN A YEAR FOR BLADDER AND BOWELS. USUALLY MAKES IT TO THE BATHROOM IN TIME. DID NOT MAKE IT TO THE BATHROOM IN TIME TWICE LAST WEEK. PATIENT IS NOT SURE IF DR. TAYLOR KNOW. THIS PT INSTRUCTED PATIENT TO MAKE SURE DR. TAYLOR IS AWARE. PATIENT AGREED. Accidents: NO Unexplained weight loss: NO Imaging: RECENT IMAGING: MILD R KNEE OA AND MOD L KNEE OA, There is multi- level degenerative disc disease with multi-level disc space narrowing. PMH/Recent major surgery: 4 MINI STROKES. PTSD FROM TRAUMA. 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 BLURRED VISION R EYE. H/O SCIATICA DOWN ROBERT LE'S. Objective Objective: Sitting/Standing Posture: ANTERIOR PELVIC TILT. NO RELEVANT LATERAL SHIFT. Other Observations: INDEP TRANSFER SIT TO STAND WITHOUT UE ASSIST. INDEP GAIT INTO PT WITH DECREASED CADANCE, WIDE BASE OF SUPPORT, TOEING OUT BUT NO LOB. SHORT ROBERT STRIDE LENGTH. Sensory deficit: ROBERT LE LIGHT TOUCH SENSATION GROSSLY INTACT AND SYMMETRICAL ROM deficit: R KNEE 0-0-119, L KNEE 0-0-114 (SUPINE W/HEEL SLIDE) Motor deficit: ROBERT LE'S GROSSLY 5/5 WITH MMT'ING Reflexes: UNABLE TO ELICIT ROBERT LE DTR'S. Dural Signs: NEGATIVE ROBERT LE'S Lumbar mvmt loss: flex - NIL - INCREASES BACK AND ROBERT LE'S - WORSE ext - JADEN - NE R SG - JADEN - NE L SG - JADEN - INCREASES ROBERT SIDES AND BACK - WORSE Core strength: POOR Palpation: NO ACUTE LUMBAR TENDERNESS. ROBERT GREATER TROCH AND LATERAL THIGH AND CALF TENDERNESS. GIRTH MEASUREMENTS: JT LINE R KNEE 46 CM, L 49.5 CM. 6 DIST TO PATELLA R 40.5 CM, L 43 CM. Balance/Special Test Scores Oswestry Low Back Score: 17 Goals Goal 1:: DECREASE C/O LOW BACK AND ROBERT LE PAIN BY AT LEAST 50% TO EASE ADL'S Goal Time Frame: 6-8 Weeks Goal 2:: PATIENT WILL BE ABLE TO WALK FOR 20 MIN WITHOUT INCREASED BACK/KNEE SYMPTOMS/NEEDING TO SIT DOWN, FOR INCREASED ADL TOLERANCE. Goal Time Frame: 6-8 Weeks Goal 3:: PATIENT WILL HAVE INCREASED ROBERT KNEE ROM TO AT LEAST 0-120 DEG FLEXION. Goal Time Frame: 6-8 Weeks Goal 4:: PATIENT WILL BE ABLE TO NEGOTIATE STEPS WITH 1 HR WITH RECIPROCAL PATTERN WITHOUT LIMITATIONS. Goal Time Frame: 6-8 Weeks Goal 5:: PATIENT WILL HAVE INCREASED PAINFREE LUMBAR ROM ALL PLANES TO EASE ADL'S. Goal Time Frame: 6-8 Weeks Goal 6:: PATIENT WILL BE INDEP WITH A HEP FOR CONTINUED IMPROVEMENT ONCE FORMAL PHYSICAL THERAPY CONCLUDES Goal Time Frame: 6-8 Weeks Rehabilitation Potential Physical Therapy Diagnosis: CORE AND KNEE STIFFNESS, TIME AND DISTANCE LIMITED GAIT, CORE WEAKNESS. Rehabilitation Potential: Good Anticipated Interventions Patient/Client Instruction: Educate patient on: Condition, Plan of Care and Risk Factors For the Purpose of:: To improve self management Therapeutic Exercise to Include: Strength training, Body mechanics, Postural training, Flexibilty training, Gait and locomotor training, Neuromotor development, In an aquatic setting and Dynamic Lumbar Stabilization For the Purpose of:: To decrease pain, To improve muscle performance and motor function, To increase tolerance to activity/condition/position, To improve ability of physical actions for home/community/work/leisure, To improve gait and locomotor functions and To improve self management Manual Therapy Techniques to Include: Soft tissue mobilization For the Purpose of:: To decrease pain, To decrease swelling/inflammation and To improve nutrient delivery to tissue Cryotherapy (ice pack, ice massage): Yes Thermo therapy (hot pack): Yes Ultrasound (thermal/non thermal): Yes For the Purpose of:: To decrease pain, To decrease swelling/inflammation and To improve nutrient delivery to tissue Text: Thank you for the opportunity to evaluate your patient. For Medicare and Medicare HMO plans, please review the plan of care and approve it. It will need to be FAXED BACK to us at [phone] for Medicare purposes. For Medicare only, by signing this I certify the plan of care. Please let me know if there are questions or concerns regarding this plan of care. Physician Signature: Date:
--- NOTE | 2024-05-05 15:51 | HP.PT.NRP ---
Patient Information Patient Information: CHUCK BLANCHARD was seen in my office for initial evaluation on 04/04/24. The following Plan of Care was established for this patient: POC Established Initial Frequency: 2-3x /Week Initial Duration: 6-8 WKS Anticipated Interventions Patient/Client Instruction: Educate patient on: Condition, Plan of Care and Risk Factors For the Purpose of:: To improve self management Therapeutic Exercise to Include: Strength training, Body mechanics, Postural training, Flexibilty training, Gait and locomotor training, Neuromotor development, In an aquatic setting and Dynamic Lumbar Stabilization For the Purpose of:: To decrease pain, To improve muscle performance and motor function, To increase tolerance to activity/condition/position, To improve ability of physical actions for home/community/work/leisure, To improve gait and locomotor functions and To improve self management Manual Therapy Techniques to Include: Soft tissue mobilization For the Purpose of:: To decrease pain, To decrease swelling/inflammation and To improve nutrient delivery to tissue Cryotherapy (ice pack, ice massage): Yes Thermo therapy (hot pack): Yes Ultrasound (thermal/non thermal): Yes For the Purpose of:: To decrease pain, To decrease swelling/inflammation and To improve nutrient delivery to tissue Last Seen Last Seen: This patient was last seen in our office 04/26/24. Pertinent comments regarding their Physical therapy will appear below: It has been my pleasure to see this patient for a total of 3 visits. This patient has not returned to Physical Therapy for more visits and is appropriate to return to MD for further follow-up as needed. At this point I will be discontinuing this patient from physical therapy. I would be happy to see this patient again in the future if found appropriate by the physician. Thank you! Gayle Clark, PT, Cert MDT Balance/Gait/Functional tests Balance/Special Test Scores Oswestry Low Back Score: 17
== END 2024-04-26 19:00 | disposition home or self-care (01) ==
LOC: PT 09:00
PROVIDERS: PCP Family Medicine; Referring Provider Orthopaedic Surgery; Visit Provider Orthopaedic Surgery
DX: M17.0 Bilateral primary osteoarthritis of knee (principal); M54.30 Sciatica, unspecified side
CPT/HCPCS: 97110; 97162

== ENCOUNTER → 2025-03-30 | Outpatient (CLI) | payer MEDICARE, SELFPAY ==
--- NOTE | 2025-03-30 12:17 | CT_ITS ---
PROCEDURE: CTA HEAD AND NECK W/ CONTRAST 03/30/2025 REASON FOR EXAM: PULSATILE TINNITUS, BILATERAL TECHNIQUE: CTA HEAD AND NECK W/ CONTRAST Multiplanar Sagittal and Coronal images were obtained. Three-dimensional reconstructions utilized CONTRAST: 100 cc VOLUME: Isovue 370 mL One or more dose reduction techniques were used (e.g., Automated exposure control, adjustment of the mA and/or kV according to patient size, use of iterative reconstruction technique). RADIATION DOSE SUMMARY: CTDlvol: 85 mGy DLP: 1565 mGycm FINDINGS: Performance of the initial noncontrast CT study of the brain demonstrates no acute abnormality. 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 The angiographic study demonstrates normal common carotid arteries. Calcified plaque at both carotid bifurcations without significant stenosis when measured by the NASCET criteria. Distal cervical internal carotid arteries exhibit normal course and caliber without developmental variation. Left and right precavernous and cavernous carotid arteries are patent with calcified plaque. Mild narrowing of the proximal left M1 segment, smooth without aneurysm or large vessel occlusion. No ELIOT occlusion or aneurysm. Right M1 and proximal M2 branches patent. There are no findings of dural sinus thrombosis or transverse sinus stenosis. The proximal subclavian arteries are patent. There is moderate narrowing of the proximal left vertebral artery in 2 locations. The right vertebral artery is dominant. No cervical vertebral dissection or occlusion. Distal left vertebral artery hypoplastic. No basilar stenosis. Left and right [employer]OR vessels are patent. CT/CTA Head AND Neck W/ Contrast IMPRESSION: 1. Smooth narrowing of the proximal left M1 segment. 2. 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 3. No intracranial aneurysm or etiology for tinnitus identified Reading [facility]
[2025-03-30 12:43] LABS: CREATININE FINGERSTICK < 1.0 mg/dL (0.55-1.02); EGFR FINGERSTICK > 60.0000 mL/min (>60)
--- OUTSIDE RECORDS SUMMARY | 2025-03-30 19:26 | XMS RPT_ITS | CCD ---
Author Organization [facility] Care Team Providers Care Express Clerk Name Role Phone Janet Little MD Primary Care Provider Janet Little MD Primary Care Provider Minerva Darcy landa Unavailable Janet Little MD Primary Care Provider Paul Tran Attending Unavailable Elderbrock, Janet Primary Care Unavailable David, Luis Attending Unavailable Elderbrock, Janet Referring Unavailable Elderbrock, Janet Primary Care Unavailable Borruso, Luis Attending Unavailable Elderbrock, Janet Primary Care Unavailable Elderbrock, Janet Referring Unavailable Borruso, Luis Attending Unavailable Elderbrock, Janet Primary Care Unavailable Elderbrock, Janet Referring Unavailable Borruso, Luis Attending Unavailable Jaydenruso, Luis Referring Unavailable Elderbrock, Janet Primary Care Unavailable Elderbrock, Janet Attending Unavailable Elderbrock, Janet Referring Unavailable Elderbrock, Janet Primary Care Unavailable Borruso, Luis Attending Unavailable Elderbrock, Janet Referring Unavailable Elderbrock, Janet Primary Care Unavailable Tannhof SALESPERSON FLORIST SUPPLIES.Brandi ROMERO Unavailable Britton SALESPERSON FLORIST SUPPLIES.Reno ROMERO Unavailable Tannhof SALESPERSON FLORIST SUPPLIES.Brandi ROMERO Unavailable JANET LITTLE Primary Care Unavailable YUSUF KENDRICK Attending Unavailable JANET LITTLE Primary Care Unavailable JALYN WALKER Referring Unavailable JANET LITTLE Primary Care Unavailable JANET LITTLE Primary Care Unavailable BRANDI CHILDERS Referring Unavailabl e JANET LITTLE Primary Care Unavailable JANET LITTLE Primary Care Unavailable JANET LITTLE Attending Unavailable JANET LITTLE Primary Care Unavailable ELDERJANET LEVI Attending Unavailable ELDERSHEBA, JANET Taylor Primary Care Unavailable ELDERJANET LEVI Attending Unavailable ANABEL, JANET Taylor Primary Care Unavailable ELDERBROCK, JANET Taylor Referring Unavailable ELDERBROCK, JANET Taylor Primary Care Unavailable ELDERBROCK, JANET Taylor Primary Care Unavailable ELDERBROCK, JANET Taylor Primary Care Unavailable NATACHA JACKSON Referring Unavailable ELDERCHAUCK, JANET Taylor Primary Care Unavailable BRANDI CHILDERS Referring Unavailabl e ELDERJANET LEVI Primary Care Unavailable ELDERJANET LEVI Attending Unavailable ELDERSHEBA, JANET Taylor Primary Care Unavailable ELDERBROCK, JANET Taylor Primary Care Unavailable ELDERBROCK, JANET Taylor Primary Care Unavailable ELDERSHEBA, JANET Taylor Referring Unavailable ELDERBROCK, JANET Taylor Primary Care Unavailable ELDERBRORENÉE, JANET Taylor Referring Unavailable ELDERBROCK, JANET Taylor Primary Care Unavailable Allergies Allergy Classification Reported Allergen(s) Allergy Type Date of Onset Reaction(s) Facility Caffeine (2 sources) Caffeine Drug Allergy 08-14-[address] [facility] Work Phone: diphenhydrAMINE (2 sources) diphenhydrAMINE Drug Allergy 07-17-[address] [facility] dulaglutide (2 sources) dulaglutide Drug Allergy 10-22-[address] [facility] Imipramine (2 sources) Imipramine Drug Allergy 08-14-[address] [facility] Prochlorperazine (2 sources) Prochlorperazine Drug Allergy 07-17-[address] [facility] (20 sources) Caffeine; Translations: [CAFFEINE] Drug Allergy 08-14-[address] [facility] Work Phone: (20 sources) diphenhydrAMINE; Translations: [DIPHENHYDRAMINE HCL] Drug Allergy 07-17-[address] [facility] Work Phone: (20 sources) Imipramine; Translations: [IMIPRAMINE] Drug Allergy 08-14-[address] [facility] Work Phone: (20 sources) Prochlorperazine; Translations: [PROCHLORPERAZINE EDISYLATE] Drug Allergy 07-17-[address] [facility] Work Phone: (20 sources) Tetracycline (class of antibiotic); Translations: [TETRACYCLINES] Propensity to adverse reactions 08-14-[address] [facility] Work Phone: (20 sources) Tetracycline (class of antibiotic) Propensity to adverse reactions 08-14-[address] [facility] Work Phone: (1 source) diphenhydrAMINE Drug Allergy 07-02-20 21 PT UNSURE OF REACTION [facility] (1 source) Prochlorperazine Drug Allergy 07-02-20 21 Other [facility] (20 sources) dulaglutide; Translations: [DULAGLUTIDE] Drug Allergy 10-22-[address] [facility] (1 source) Caffeine Drug Allergy 03-11-20 24 [facility] (1 source) diphenhydrAMINE Drug Allergy 03-11-20 24 [facility] (1 source) Prochlorperazine Drug Allergy 03-11-20 24 [facility] Medications Current Medications Medication Drug Class(es) Dates Sig (Normalized) Sig (Original) acetaminophen 500 mg oral tablet (20 sources) Start: 03-08-2024 take 2 tablets by mouth once daily acetaminophen (TYLENOL EXTRA STRENGTH) 500 mg tablet Take 2 tablets by mouth once daily. 03/08/2024 Active azithromycin 250 mg oral tablet (8 sources) Macrolide Antimicrobial Start: 10-31-2024 End: 11-18-2024 azithromycin (ZITHROMAX Z-ALVIN) 250 mg tablet Indications: Pharyngitis, unspecified etiology , Bacterial sinusitis 2 tablets by mouth first day then 1 tablet the next 4 days 6 tablet 1 10/31/2024 11/18/2024 Discontinued (Course of therapy completed) Start: 08-18-2024 End: 08-27-2024 azithromycin (ZITHROMAX Z-PA K) 250 mg tablet Take 2 tablets day one, then, 1 tablet daily until gone. 6 tablet 08/22/2024 08/27/2024 Active Start: 05-27-2024 End: 06-01-2024 take 2 tablets by mouth once daily, then take 1 tablet by mouth once daily azithromycin (ZITHROMAX) 250 mg tablet Take 2 tablets by mouth once daily for 1 day, THEN 1 tablet once daily for 4 days. 6 tablet 05/27/2024 06/01/2024 Active busPIRone hydrochloride 5 mg oral tablet (13 sources) Start: 12-12-2021 End: 07-21-2022 take 1 tablet by mouth twice daily busPIRone (BUSPAR) 5 mg tablet Take 1 tablet by mouth twice daily. 60 tablet 2 12/12/2021 07/21/2022 Discontinued Comment on above: Take 1 tablet by [facility] twice daily. cefuroxime 500 mg oral tablet (2 sources) Cephalosporin Antibacterial Start: 05-27-2024 End: 06-01-2024 take 1 tablet by mouth twice daily cefUROXime (CEFTIN) 500 mg tablet Take 1 tablet by mouth two times a day for 5 days. 10 tablet 05/27/2024 06/01/2024 Active cephalexin 500 mg oral capsule (2 sources) Cephalosporin Antibacterial Start: 02-13-2025 End: 02-18-2025 take 1 capsule by mouth twice daily cephALEXin (KEFLEX) 500 mg capsule Take 1 capsule by mouth two times a day for 5 days. 10 capsule 02/13/2025 02/18/2025 Active Start: 07-13-2022 End: 07-20-2022 take 1 capsule by mouth twice daily cephALEXin (KEFLEX) 500 mg capsule Take 1 capsule by mouth twice daily for 7 days. 14 capsule 0 07/13/2022 07/20/2022 Active Comment on above: Take 1 capsule by [facility] twice daily for 7 days. cholecalciferol 1.25 mg oral capsule (20 sources) Vitamin D Start: End: take 1 capsule by mouth every week cholecalciferol, Vitamin D3, (VITAMIN D3) 1,250 mcg (50,000 unit) cap capsule Indications: Vitamin D deficiency Take 1 capsule by mouth one time a week. 12 capsule 3 06/03/2024 06/03/2025 Active clobetasol propionate 0.5 mg/ml topical cream (20 sources) Corticosteroid Start: End: clobetasol (TEMOVATE) 0.05 % cream Apply to affected area two times a day. 15 g 2 08/28/2023 Active Comment on above: Apply to affected ar ea twice daily. Apply to affected ar ea two times a day. clotrimazole 10 mg/ml vaginal cream (2 sources) Azole Antifungal Start: 023 End: 023 clotrimazole (LOTRIMIN) 1 % vaginal cream Use 1 Applicatorful vaginally once daily for 7 days. 45 g 0 04/01/2023 04/08/2023 Active Comment on above: Use 1 Applicatorful vaginally once daily for 7 days. fluconazole 150 mg oral tablet (20 sources) Azole Antifungal Start: 025 End: fluconazole (DIFLUCAN) 150 mg tablet Indications: Vaginal yeast infection Take 1 tablet by mouth one time only for 1 dose. Repeat in 3 days as needed. 2 tablet 11/18/2024 11/18/2024 Active Start: 06-10-2024 End: 09-06-2024 take 1 tablet by mouth once daily as needed fluconazole (DIFLUCAN) 150 mg tablet Indications: Vaginal yeast infection Take 1 tablet by mouth once daily. Repeat in 3 days as needed. 2 tablet 06/10/2024 09/06/2024 Discontinued (Course of therapy completed) Start: 03-31-2023 End: 03-31-2023 fluconazole (DIFLUCAN) 150 m g tablet Take 1 tablet by mouth one time only for 1 dose. Repeat in 3 days as needed. 2 tablet 0 03/31/2023 03/31/2023 Start: 01-15-2023 End: 01-15-2023 fluconazole (DIFLUCAN) 150 m g tablet Take 1 tablet by mouth one time only for 1 dose. Repeat in 3 days as needed. 2 tablet 0 01/15/2023 01/15/2023 Active Start: 07-13-2022 End: 07-13-2022 fluconazole (DIFLUCAN) 150 m g tablet Take 1 tablet by mouth one time only for 1 dose. Repeat in 3 days as needed. 2 tablet 0 07/13/2022 07/13/2022 Active Start: 03-11-2022 End: 03-11-2022 fluconazole (DIFLUCAN) 150 m g tablet Take 1 tablet by mouth one time only for 1 dose. Repeat in 3 days as needed. 2 tablet 0 03/11/2022 03/11/2022 Active Start: 01-15-2022 End: 01-22-2022 take 1 tablet by mouth once daily fluconazole (DIFLUCAN) 100 mg tablet Indications: Vaginal yeast infection Take 1 tablet by mouth once daily for 7 days. 7 tablet 0 01/15/2022 01/22/2022 Active Start: 12-28-2021 End: 12-29-2021 take 1 tablet by mouth once daily fluconazole (DIFLUCAN) 150 mg tablet Take 1 tablet by mouth once daily for 1 day. 1 tablet 0 12/28/2021 12/29/2021 Active Start: 11-26-2021 End: 12-12-2021 fluconazole (DIFLUCAN) 150 m g tablet Indications: Acute vaginitis , Medication side effect One tab STAT for vaginitis, may repeat once a week as needed 10 tablet 0 11/26/2021 12/12/2021 Discontinued Start: 09-11-2021 End: 11-13-2021 fluconazole (DIFLUCAN) 150 m g tablet Indications: Acute vaginitis , Medication side effect One tab STAT for vaginitis, may repeat once a week as needed 10 tablet 0 09/11/2021 11/13/2021 Discontinued Comment on above: One tab STAT for vag initis, may repeat once a week as needed Take 1 tablet by hector once daily for 1 day. Take 1 tablet by hector th once daily for 7 days. Take 1 tablet by hector th one time only for 1 dose. Repeat in 3 days as needed. FLUoxetine 10 mg oral capsule (3 sources) Serotonin Reuptake Inhibitor Start: End: take 1 capsule by mouth once daily FLUoxetine (PROZAC) 10 mg capsule Take 1 capsule by mouth once daily. 30 capsule 5 06/25/2022 07/21/2022 Discontinued Comment on above: Take 1 capsule by mo [facility] once daily. Inhalational Spacing Device (1 source) Start: End: Inhalational Spacing Device Indications: Bacterial pneumonia 1 Device one time only for 1 dose. 1 Each 06/10/2024 06/10/2024 Active 3 ml insulin glargine 100 unt/ml pen injector (20 sources) Insulin Analog Start: 025 End: inject 65 [IU] by subcutaneous injection once daily at bedtime insulin glargine 100 unit/mL (3 mL) Indications: Uncontrolled type 2 diabetes mellitus with hyperglycemia (HCC) Inject 65 Units subcutaneously daily at bedtime. 15 mL 11 03/28/2025 Active Start: 06-10-2024 End: 03-07-2025 inject 60 [IU] by subcutaneous injection once daily at bedtime insulin glargine 100 unit/mL (3 mL) Indications: Uncontrolled type 2 diabetes mellitus with hyperglycemia (HCC) Inject 60 Units subcutaneously daily at bedtime. 15 mL 11 06/10/2024 03/07/2025 Discontinued (Adjust Sig - Block E-Cancel) Start: 03-08-2024 End: 06-10-2024 inject 55 [IU] by subcutaneous injection once daily at bedtime insulin glargine 100 unit/mL (3 mL) Indications: Uncontrolled type 2 diabetes mellitus with hyperglycemia (HCC) Inject 55 Units subcutaneously daily at bedtime. 15 mL 11 03/08/2024 06/10/2024 Discontinued Start: 02-04-2024 End: 03-08-2024 inject 50 [IU] by subcutaneous injection once daily at bedtime insulin glargine 100 unit/mL (3 mL) Indications: Uncontrolled type 2 diabetes mellitus with hyperglycemia (HCC) Inject 50 Units subcutaneously daily at bedtime. 15 mL 11 02/04/2024 03/08/2024 Discontinued (Adjust Sig - Block E-Cancel) Start: 01-01-2024 End: 02-04-2024 inject 45 [IU] by subcutaneous injection once daily at bedtime insulin glargine 100 unit/mL (3 mL) Indications: Uncontrolled type 2 diabetes mellitus with hyperglycemia (HCC) Inject 45 Units subcutaneously daily at bedtime. 15 mL 5 01/01/2024 02/04/2024 Discontinued Start: 12-24-2023 End: 01-01-2024 inject 40 [IU] by subcutaneous injection once daily at bedtime insulin glargine 100 unit/mL (3 mL) Indications: Uncontrolled type 2 diabetes mellitus with hyperglycemia (HCC) Inject 40 Units subcutaneously daily at bedtime. 15 mL 5 12/24/2023 01/01/2024 Discontinued (Adjust Sig - Block E-Cancel) Start: 12-03-2023 End: 12-24-2023 inject 36 [IU] by subcutaneous injection once daily at bedtime insulin glargine 100 unit/mL (3 mL) Indications: Uncontrolled type 2 diabetes mellitus with hyperglycemia (HCC) Inject 36 Units subcutaneously daily at bedtime. 15 mL 5 12/03/2023 12/24/2023 Discontinued Start: 10-29-2023 End: 12-03-2023 inject 32 [IU] by subcutaneous injection once daily at bedtime insulin glargine 100 unit/mL (3 mL) Indications: Uncontrolled type 2 diabetes mellitus with hyperglycemia (HCC) Inject 32 Units subcutaneously daily at bedtime. 15 mL 5 10/29/2023 12/03/2023 Discontinued Start: 10-15-2023 inject 28 [IU] by zepeda bcutaneous injection once daily at bedtime insulin glargine 100 unit/mL (3 mL) Indications: Uncontrolled type 2 diabetes mellitus with hyperglycemia (HCC) Inject 28 Units subcutaneously daily at bedtime. 15 mL 5 10/15/2023 Active Start: 09-10-2023 End: 10-15-2023 inject 24 [IU] by subcutaneous injection once daily at bedtime insulin glargine 100 unit/mL (3 mL) Indications: Uncontrolled type 2 diabetes mellitus with hyperglycemia (HCC) Inject 24 Units subcutaneously daily at bedtime. 0 09/10/2023 10/15/2023 Discontinued Start: 05-26-2023 inject 10 [IU] by zepeda bcutaneous injection once daily at bedtime insulin glargine 100 unit/mL (3 mL) Indications: Uncontrolled type 2 diabetes mellitus with hyperglycemia (HCC) Inject 10 Units subcutaneously daily at bedtime. 3 mL 5 05/26/2023 Active Start: 05-26-2023 inject 10 [IU] by zepeda bcutaneous injection once daily at bedtime insulin glargine 100 unit/mL (3 mL) Indications: Uncontrolled type 2 diabetes mellitus with hyperglycemia (HCC) Inject 10 Units subcutaneously daily at bedtime. 3 mL 5 05/26/2023 Active Comment on above: Inject 10 Units subc utaneously daily at bedtime. Inject 28 Units subc utaneously daily at bedtime. Inject 24 Units subc utaneously daily at bedtime. Inject 32 Units subc utaneously daily at bedtime. Inject 36 Units subc utaneously daily at bedtime. levoFLOXacin 500 mg oral tablet (1 source) Quinolone Antimicrobial Start: 07-02-20 take 500 mg by mouth once daily Levofloxacin Active 500 MG PO DAILY July 02, 2021 12:00am LORazepam 1 mg oral tablet (20 sources) Benzodiazepine Start: 01-11-20 End: 04-10-20 take 1 tablet by mouth three times daily as needed LORazepam (ATIVAN) 1 mg tablet Indications: Anxiety and depression Take 1 tablet by mouth three times a day as needed for up to 90 days. 90 tablet 2 01/10/2025 04/10/2025 Active Start: 07-25-2024 End: 12-12-2024 take 1 tablet by mouth three times daily as needed LORazepam (ATIVAN) 1 mg tablet Indications: Anxiety and depression Take 1 tablet by mouth three times a day as needed for up to 90 days. 90 tablet 2 09/13/2024 12/12/2024 Active Start: 12-21-2023 End: 06-06-2024 take 1 tablet by mouth every eight hours as needed for anxiety and anxiety LORazepam (ATIVAN) 1 mg tablet Indications: Anxiety Take 1 tablet by mouth three times a day as needed for anxiety for up to 90 days. 90 tablet 2 03/08/2024 06/06/2024 Active Start: 11-16-2023 End: 12-16-2023 take 1 tablet by mouth every eight hours as needed for anxiety and anxiety LORazepam (ATIVAN) 1 mg tablet Indications: Anxiety Take 1 tablet by mouth three times a day as needed for up to 30 days. 90 tablet 0 11/16/2023 12/16/2023 Active Start: 05-05-2023 End: 10-21-2023 take 1 tablet by mouth every eight hours as needed for anxiety and anxiety LORazepam (ATIVAN) 1 mg tablet Indications: Anxiety Take 1 tablet by mouth three times a day as needed for anxiety for up to 90 days. 90 tablet 2 07/23/2023 10/21/2023 Active Start: 07-18-2022 End: 04-05-2023 take 1 tablet by mouth three times daily for anxiety LORazepam (ATIVAN) 1 mg tablet Indications: Anxiety take 1 tablet by mouth three times a day if needed for anxiety 90 tablet 2 01/05/2023 04/05/2023 Active Start: 04-07-2022 End: 07-06-2022 take 1 tablet by mouth every eight hours as needed for anxiety and anxiety LORazepam (ATIVAN) 1 mg tablet Indications: Anxiety Take 1 tablet by mouth three times daily as needed for anxiety for up to 90 days. 90 tablet 2 04/07/2022 Active Start: 09-24-2021 End: 04-02-2022 take 1 tablet by mouth every eight hours as needed LORazepam (ATIVAN) 1 mg tablet Take 1 tablet by mouth three times daily as needed for anxiety. 90 tablet 0 09/24/2021 11/13/2021 Discontinued Start: 09-16-2021 End: 11-13-2021 take 1 tablet by mouth twice daily for anxiety LORazepam (ATIVAN) 1 mg tablet Indications: Anxiety take 1 tablet by mouth twice a day if needed for anxiety for up to 90 DAYS 60 tablet 2 09/16/2021 11/13/2021 Discontinued Start: 11-10-2016 End: 05-05-2023 take 1 tablet by mouth every 30 days as needed for anxiety LORazepam (ATIVAN) 0.5 mg Indications: Anxiety and depression Take 1 tablet by mouth as needed (Anxiety) for up to 30 days. 90 tablet 2 04/22/2023 05/05/2023 Discontinued Start: 11-10-2016 take 0.5 mg by mouth once daily as needed Lorazepam Active 0.5 MG PO DAILY NEEDED November 09, 2016 11:00pm Comment on above: Take 1 tablet by hector th three times daily as needed for anxiety for up to 30 days. take 1 tablet by hector th twice a day if needed for anxiety for up to 90 DAYS Take 1 tablet by hector th three times daily as needed for anxiety. Take 1 tablet by hector th three times daily as needed for anxiety for up to 90 days. take 1 tablet by hector th three times a day if needed for anxiety Take 1 tablet by hector th as needed (Anxiety) for up to 30 days. Take 1 tablet by hector th three times a day as needed for anxiety for up to 90 days. Take 1 tablet by hector th three times a day as needed for up to 30 days. mupirocin 0.02 mg/mg topical ointment (1 source) RNA Synthetase Inhibitor Antibacterial Start: 02-14-20 25 End: 02-19-20 mupirocin (BACTROBAN) 2 % ointment Apply to affected area three times a day for 5 days. 30 g 02/13/2025 02/18/2025 Active nitrofurantoin, macrocrystals 25 mg / nitrofurantoin, monohydrate 75 mg oral capsule (4 sources) Nitrofuran Antibacterial Start: 04-03-20 End: 04-10-20 take 1 capsule by mouth twice daily nitrofurantoin monohydrate and macrocrystal (MACROBID) 100 mg capsule Take 1 capsule by mouth twice daily for 7 days. 14 capsule 0 04/03/2023 04/10/2023 Active Start: 01-22-2023 End: 01-27-2023 take 1 capsule by mouth twice daily nitrofurantoin monohydrate and macrocrystal (MACROBID) 100 mg capsule Indications: Dysuria Take 1 capsule by mouth twice daily for 5 days. 10 capsule 0 01/22/2023 01/27/2023 Active Start: 12-28-2021 End: 01-02-2022 take 1 capsule by mouth twice daily nitrofurantoin monohydrate and macrocrystal (MACROBID) 100 mg capsule Take 1 capsule by mouth twice daily for 5 days. 10 capsule 0 12/28/2021 01/02/2022 Active Comment on above: Take 1 capsule by mo [facility] twice daily for 5 days. Take 1 capsule by mo [facility] twice daily for 7 days. perflutren lipid microspheres 1.3 mL in NaCl (PF) 0.9% 10 mL injection (DEFINITY) (20 sources) Start: 12-03-19 End: 03-03-20 perflutren lipid microspheres 1.3 mL in NaCl (PF) 0.9% 10 mL injection (DEFINITY) promethazine hydrochloride 25 mg oral tablet (1 source) Phenothiazine Start: 06-27-20 take 25 mg by mouth three times daily Promethazine Active 25 MG PO THREE TIMES A DAY June 27, 2021 7:00am 125 ml sodium chloride 9 mg/ml prefilled syringe (20 sources) Start: 12-03-19 End: 03-03-20 sodium chloride 0.9 % (flush) 10 mL (BD POSIFLUSH) traMADol hydrochloride 50 mg oral tablet (1 source) Opioid Agonist Start: 07-02-20 21 take 50 mg by mouth every four hours as needed Tramadol Active 50 MG PO EVERY 4 HOURS NEEDED 03 11July 02, 2021 12:00am Completed/Discontinued Medications Medication Drug Class(es) Dates Sig (Normalized) Sig (Original) [id number] 200 actuat albuterol 0.09 mg/actuat metered dose inhaler (7 sources) beta2-Adrenergic Agonist Start: 06-10-2024 End: 09-06-2024 take 2 puff(s) by inhalation every four hours as needed for wheezing albuterol HFA (PROVENTIL HFA, VENTOLIN HFA) 90 mcg/actuation inhaler Indications: Bacterial pneumonia Inhale 2 Puffs as instructed every 4 hours as needed for wheezing/shortness of breath. 1 Each 06/10/2024 09/06/2024 Discontinued (Course of therapy completed) amoxicillin 875 mg / clavulanate 125 mg oral tablet (11 sources) Penicillin-class Antibacterial Start: 11-07-2024 End: 03-07-2025 take 1 tablet by mouth twice daily amoxicillin-clavul anate potassium (AUGMENTIN) 875-125 mg per tablet Take 1 tablet by mouth two times a day. 20 tablet 11/07/2024 03/07/2025 Discontinued Start: 06-10-2024 End: 06-17-2024 take 1 tablet by mouth twice daily amoxicillin-clavulanate potassium (AUGMENTIN) 875-125 mg per tablet Indications: Bacterial pneumonia Take 1 tablet by mouth two times a day for 7 days. 14 tablet 06/10/2024 06/17/2024 Active Start: 06-25-2021 End: 06-25-2021 take 1 tablet by mouth once daily Amoxicillin-Pot Clavulanate Discontinued 1 TABLET PO DAILY June 25, 2021 12:00am June 25, 2021 8:39am benzonatate 100 mg oral capsule (5 sources) Non-narcotic Antitussive Start: 05-27-2024 End: 06-10-2024 take 100-200 mg by mouth every eight hours as needed benzonatate (TESSALON PERLES) 100 mg capsule Take 1-2 capsules by mouth three times a day as needed for cough. 30 capsule 05/27/2024 06/10/2024 Discontinued celecoxib 100 mg oral capsule (7 sources) Nonsteroidal Anti-inflammatory Drug Start: 12-21-2023 End: 03-08-2024 take 1 capsule by mouth twice daily celecoxib (CELEBREX) 100 mg capsule Take 1 capsule by mouth two times a day. 60 capsule 2 12/21/2023 03/08/2024 Discontinued cetirizine hydrochloride 10 mg oral tablet (1 source) Histamine-1 Receptor Antagonist Start: 07-13-2022 End: 07-13-2022 take 1 tablet by mouth once daily cetirizine (ZYRTEC) 10 mg tablet Take 1 tablet by mouth once daily for 14 days. 14 tablet 0 07/13/2022 07/13/2022 Discontinued Comment on above: Take 1 tablet by hector th once daily for 14 days. cyclobenzaprine hydrochloride 5 mg oral tablet (10 sources) Muscle Relaxant Start: 12-03-2023 End: 03-08-2024 take 1 tablet by mouth three times daily cyclobenzaprine (FLEXERIL) 5 mg tablet Indications: Leg pain, bilateral Take 1 tablet by mouth three times a day. 30 tablet 1 12/03/2023 03/08/2024 Discontinued Comment on above: Take 1 tablet by hector th three times a day. 12 hr dextromethorphan hydrobromide 30 mg / guaiFENesin 600 mg extended release oral tablet (2 sources) Uncompetitive P-khstdj-I-[place]part[place] te Receptor Antagonist, Sigma-1 Agonist Start: 06-06-2024 End: 06-16-2024 take 1 tablet by mouth twice daily dextromethorphan-g uaiFENesin (MUCINEX DM) 30-600 mg per tablet Indications: Bacterial pneumonia Take 1 tablet by mouth two times a day for 10 days. 20 tablet 06/06/2024 06/10/2024 Discontinued 0.5 ml dulaglutide 1.5 mg/ml auto-injector (11 sources) GLP-1 Receptor Agonist Start: 07-21-2022 End: 01-29-2023 inject 0.75 mg by subcutaneous injection every week dulaglutide (TRULICITY) 0.75 mg/0.5 mL pen injector Indications: Type 2 diabetes mellitus without complication, without long-term current use of insulin (HCC) Inject 0.75 mg subcutaneously one time a week. Inject dose once per week. Discard Pen After 2 mL 5 07/21/2022 01/29/2023 Discontinued Comment on above: Inject 0.75 mg subcu taneously one time a week. Inject dose once per week. Discard Pen After fluticasone propionate 0.05 mg/actuat metered dose nasal spray (1 source) Corticosteroid Start: 07-13-2022 End: 07-13-2022 take 2 spray(s) by mouth once daily fluticasone (FLONASE) 50 mcg/actuation nasal spray Use 2 Sprays in each nostril once daily. Rinse mouth after use. 1 Each 0 07/13/2022 07/13/2022 Discontinued Comment on above: Use 2 Sprays in each nostril once daily. Rinse mouth after use. iv contrast (will be provided with radiology test) (1 source) Start: 10-10-2021 End: 10-11-2021 inject 1 dose intravenously once iv contrast (will be provided with radiology test) Indications: Transient cerebral ischemia, unspecified type , Cerebral infarction, unspecified mechanism (HCC) CTA Head/Neck W No IV access, insert saline lock prior to the sedation, infusion, injection for imaging exam. Discontinue saline lock post exam. If Pt. has a central line or IVAD, may access for administration according to line specific nursing protocol. Once exam is complete flush line and de-access according to line specific nursing protocol in the CT contrast administration guidelines link. 1 Each 0 10/10/2021 10/11/2021 Comment on above: CTA Head/Neck W No I V access, insert saline lock prior to the sedation, infusion, injection for imaging exam. Discontinue saline lock post exam. If Pt. has a central line or IVAD, may access for administration according to line specific nursing protocol. Once exam is complete flush line and de-access according to line specific nursing protocol in the CT contrast administration guidelines link. losartan potassium 25 mg oral tablet (1 source) Angiotensin 2 Receptor Alejandro Start: 04-07-2018 End: 04-07-2018 take 25 mg by mouth once daily Losartan Discontinued 25 MG PO DAILY April 06, 2018 11:00pm April 07, 2018 1:03pm metFORMIN hydrochloride 500 mg oral tablet (1 source) Biguanide Start: 04-07-2018 End: 04-07-2018 take 500 mg by mouth once daily Metformin Discontinued 500 MG PO DAILY April 06, 2018 11:00pm April 07, 2018 1:08pm omeprazole 20 mg delayed release oral capsule (17 sources) Proton Pump Inhibitor Start: 07-02-2021 End: 04-17-2022 take 1 capsule by mouth once daily before breakfast omeprazole (PRILOSEC) 20 mg capsule Indications: GERD without esophagitis Take 1 capsule by mouth daily before breakfast. 1/2 hr before meal. 30 capsule 5 08/05/2021 04/17/2022 Discontinued Comment on above: Take 1 capsule by mo uth daily before breakfast. 1/2 hr before meal. 24 hr oxybutynin chloride 5 mg extended release oral tablet (5 sources) Cholinergic Muscarinic Antagonist Start: 01-15-2022 End: 04-17-2022 take 1 tablet by mouth once daily oxybutynin XL (DITROPAN XL) 5 mg 24 hr tablet Indications: Urinary incontinence, unspecified type Take 1 tablet by mouth once daily. 30 tablet 2 01/15/2022 04/17/2022 Discontinued Comment on above: Take 1 tablet by hector th once daily. sertraline 25 mg oral tablet (13 sources) Serotonin Reuptake Inhibitor Start: 09-06-2024 End: 01-16-2025 take 1 tablet by mouth once daily sertraline (ZOLOFT) 25 mg tablet Indications: Anxiety , Major depressive disorder, recurrent, mild Take 1 tablet by mouth once daily. 30 tablet 5 09/06/2024 01/16/2025 Discontinued tiZANidine 2 mg oral tablet (5 sources) Central alpha-2 Adrenergic Agonist Start: 01-15-2022 End: 04-17-2022 take 1 tablet by mouth every eight hours as needed for muscle spasms tiZANidine (ZANAFLEX) 2 mg tablet Indications: Musculoskeletal back pain Take 1 tablet by mouth every 8 hours as needed (muscle spasms). 30 tablet 1 01/15/2022 04/17/2022 Discontinued Comment on above: Take 1 tablet by hector th every 8 hours as needed (muscle spasms). Problems Active Problems Problem Classification Problem Date Documented Date Episodic/Chronic Abdominal pain (1 source) Epigastric pain; Translations: [Epigastric pain] 07-03-2021 Episodic Acute cerebrovascular disease (20 sources) Cerebrovascular accident; Translations: [Cerebral infarction, unspecified] Onset: 12-03-2021 Chronic Allergic reactions (1 source) Allergic condition; Translations: [Allergy, unspecified, initial encounter] 03-08-2024 Episodic Anxiety disorders (20 sources) Anxiety; Translations: [Anxiety disorder, unspecified] Onset: 08-28-2016 Chronic Complications of surgical procedures or medical care (1 source) Drug therapy finding; Translations: [Unspecified adverse effect of drug or medicament, initial encounter] Episodic Diabetes mellitus with complications (20 sources) Type 2 diabetes mellitus; Translations: [Type 2 diabetes mellitus with diabetic neuropathy, unspecified] Onset: 12-02-2021 Chronic Diabetes mellitus without complication (20 sources) Type 2 diabetes mellitus without complication; Translations: [Type 2 diabetes mellitus without complications] Chronic Disorders of lipid metabolism (20 sources) Mixed hyperlipidemia; Translations: [Mixed hyperlipidemia] Onset: 12-09-2019 12-09-2019 Chronic Disorders of teeth and jaw (1 source) Jaw pain; Translations: [Jaw pain] 04-07-2018 Episodic Esophageal disorders (20 sources) Gastroesophageal reflux disease; Translations: [Gastro-esophageal reflux disease without esophagitis] 08-14-2005 Chronic Essential hypertension (20 sources) Essential hypertension; Translations: [Essential (primary) hypertension] Onset: 09-02-2007 Resolved: 06-30-2012 08-28-2016 Chronic Fever of unknown origin (1 source) Fever; Translations: [Fever, unspecified] 02-20-2020 Episodic Genitourinary symptoms and ill-defined conditions (1 source) Urinary incontinence; Translations: [Unspecified urinary incontinence] Chronic Genitourinary symptoms and ill-defined conditions (6 sources) Scalding pain on urination ; Translations: [Dysuria] Episodic Headache; including migraine (1 source) Headache; Translations: [Headache] 04-07-2018 Episodic Heart valve disorders (1 source) Heart murmur; Translations: [Cardiac murmur, unspecified] 10-26-2024 Episodic Hypertension with complications and secondary hypertension (1 source) Hypertensive urgency ; Translations: [Hypertensive urgency] 04-07-2018 Chronic Inflammatory diseases of female pelvic organs (1 source) Acute vaginitis; Translations: [Acute vaginitis] Episodic Mood disorders (20 sources) Recurrent major depressive episodes, mild ; Translations: [Major depressive disorder, recurrent, mild] Onset: 08-28-2023 08-28-2023 Chronic Mood disorders (1 source) Mood disorders; Translations: [Anxiety and depression] Onset: 12-03-2021 Mycoses (3 sources) Candidiasis of vagina; Translations: [Candidiasis of vulva and vagina] Episodic Nausea and vomiting (2 sources) Nausea and vomiting; Translations: [Nausea with vomiting, unspecified] 07-03-2021 Episodic Nutritional deficiencies (3 sources) Vitamin D deficiency; Translations: [Vitamin D deficiency, unspecified] Onset: 08-19-2024 06-03-2024 Chronic Osteoarthritis (1 source) Bilateral primary osteoarthritis of knee; Translations: [Bilateral primary osteoarthritis of knee] Onset: 05-06-2024 Chronic Other and unspecified benign neoplasm (1 source) Lipoma of right lower limb; Translations: [Benign lipomatous neoplasm of skin and subcutaneous tissue of right leg] Episodic Other circulatory disease (1 source) Elevated blood-pressure reading without diagnosis of hypertension; Translations: [Elevated blood-pressure reading, without diagnosis of hypertension] 04-01-2023 Episodic Other connective tissue disease (1 source) Pain in left arm; Translations: [Pain in left arm] 04-07-2018 Episodic Other connective tissue disease (1 source) Cramp in lower limb; Translations: [Cramp and spasm] Episodic Other connective tissue disease (2 sources) Pain in bilateral legs; Translations: [Pain in right leg] 12-03-2023 Episodic Other ear and sense organ disorders (1 source) Cellulitis of pinna ; Translations: [Cellulitis of left external ear] 02-13-2025 Episodic Other ear and sense organ disorders (1 source) Cellulitis of left external ear; Translations: [Cellulitis of antihelix of left ear] Onset: 02-13-2025 Episodic Other lower respiratory disease (3 sources) Cough; Translations: [Acute cough] 05-27-2024 Episodic Other nervous system disorders (1 source) Ataxia; Translations: [Ataxia, unspecified] Episodic Other nutritional; endocrine; and metabolic disorders (20 sources) Severe obesity; Translations: [Morbid (severe) obesity due to excess calories] Onset: 08-28-2023 Resolved: 12-03-2023 08-28-2023 Chronic Other skin disorders (1 source) Nodule of skin of right lower limb; Translations: [Localized swelling, mass and lump, right lower limb] 12-03-2023 Episodic Other upper respiratory disease (20 sources) Chronic rhinitis; Translations: [Chronic rhinitis] Onset: 09-12-2005 09-12-2005 Chronic Other upper respiratory disease (1 source) Nasal congestion; Translations: [Nasal congestion] Episodic Other upper respiratory infections (2 sources) Chronic sinusitis, unspecified; Translations: [Unspecified sinusitis (chronic)] 08-18-2024 Chronic Other upper respiratory infections (3 sources) Viral upper respiratory tract infection; Translations: [Acute upper respiratory infection, unspecified] 10-26-2024 Episodic Pneumonia (except that caused by tuberculosis or sexually transmitted disease) (4 sources) Pneumonia; Translations: [Pneumonia, unspecified organism] 07-10-2021 Episodic Residual codes; unclassified (1 source) Insomnia; Translations: [Insomnia, unspecified] 07-05-2021 Episodic Residual codes; unclassified (1 source) FH: Not known - Adopted; Translations: [Other specified health status] 04-07-2018 Episodic Spondylosis; intervertebral disc disorders; other back problems (3 sources) Backache; Translations: [Dorsalgia, unspecified] Onset: 05-06-2024 Episodic Transient cerebral ischemia (3 sources) Transient cerebral ischemia; Translations: [Transient cerebral ischemic attack, unspecified] Chronic Unclassified (1 source) Age more than 65 years; Translations: [Over 65 years old] 06-26-2021 Unclassified (1 source) Low back pain, unspecified; Translations: [Low back pain, unspecified] Onset: 12-18-2023 Unclassified (1 source) Acute cough; Translations: [Acute cough] Onset: 08-18-2024 Urinary tract infections (1 source) Urinary tract infectious disease; Translations: [Urinary tract infection, site not specified] 07-10-2021 Episodic Viral infection (2 sources) Disease caused by 2019-nCoV; Translations: [COVID-19] 06-25-2021 Episodic Past or Other Problems Problem Classification Problem Date Documented Date Episodic/Chronic Diabetes mellitus without complication (20 sources) Glycosuria; Translations: [Glycosuria] Resolved: 08-28-2016 Episodic Other aftercare (20 sources) Long-term current use of insulin; Translations: [halfway (current) use of insulin] Onset: 05-26-2023 08-25-2023 Episodic Other circulatory disease (20 sources) History of cerebrovascular accident; Translations: [Personal history of transient ischemic attack (TIA), and cerebral infarction without residual deficits] Onset: 12-02-2021 04-07-2018 Episodic Other non-traumatic joint disorders (1 source) Pain in left knee; Translations: [Pain in left knee] Onset: 12-18-2023 Episodic Other non-traumatic joint disorders (1 source) Pain in right knee; Translations: [Pain in right knee] Onset: 12-18-2023 Episodic Other nutritional; endocrine; and metabolic disorders (20 sources) Metabolic syndrome X; Translations: [Dysmetabolic syndrome X] Onset: 09-12-2005 Resolved: 09-02-2007 09-02-2007 Chronic Other screening for suspected conditions (not mental disorders or infectious disease) (20 sources) Abnormal cytological findings in specimens from other organs, systems and tissues; Translations: [Other abnormal Papanicolaou smear of cervix and cervical HPV] Onset: 09-02-2007 Resolved: 08-28-2016 09-02-2007 Episodic Residual codes; unclassified (20 sources) Noncompliance with treatment; Translations: [Patient's noncompliance with other medical treatment and regimen] Onset: 12-03-2021 Episodic Unclassified (20 sources) Elevated blood pressure; Translations: [Elevated BP] Onset: 06-30-2012 Resolved: 08-28-2016 08-28-2016 Results Test Name Value Interpretation Reference Range Facility [facility] 03-07-2025 CNOV Office Visit (FAMPWS ) LOMAYA ([id number]) 1950 F Date Time Provider Department 03/07[facility]25 9[facility]40 [facility] your visit today, we recorded the following information about you: Pulse Respiration Blood pressure Weight 88/minute 16/minute 140/80 96.8 kg Janet Little MD 03/07/2025 6:10 PM Signed Chief Complaint Patient presents with: F/U 3 Month HPI Maya Blanchard is a 74 year old female who presents here today for 3 month follow up. Here with her . No bowel or gi issues. Has urinary incontinence which she manages by using pads. JACLYN/Depression: Chronic. Taking Ativan 1 mg pill BID-TID, usually just using it twice a day. Is doing counseling. She was advised to start Zoloft 25 mg daily last visit in and we would discuss weaning off the Ativan. Lipid/CVA: Hx of TIA, not taking any medications. Rides stationary bike for exercise. Is trying to watch diet. Declines any further trial of statins or cholesterol lowering medications. DM: Workings with Pharmacist but put that on hold to see how her sugars were doing which were doing well until stressed. Taking Lantus 60 units daily. Denies any hypoglycemic episodes. Some neuropathy in feet. Follows with Dr. Saavedra for DM eye exams. Checking BS once a day with FBS 162-326. HTN: Not taking any medication. Denies checking BP at home, no chest pains or Shortness of Breath. Has dizziness at times. Follows with [facility] for her b/l pain. Is doing PT. She also reports episodes of forgetfulness, particularly when reading or speaking, which she attributes to stress. She denies concerns about dementia or Alzheimer's disease, and her counselor also believes these episodes are stress-related. Maya notes that her forgetfulness is more pronounced when she is with her granddaughter Maya also reports a whooshing sound in her ears, more pronounced on the left side, which she notices more after taking medications such as Tylenol. She has a pending appointment with Dr. Womack to evaluate this symptom. Past medical history, appointments, medications, allergies reviewed. Previous Medical History PAST MEDICAL HISTORY Diagnosis Date Anxiety Chronic rhinitis deviated septum Diabetes mellitus type II, uncontrolled Esophageal reflux Moderate cervical dysplasia Other abnormal glucose Other and unspecified hyperlipidemia PMH - PAST MEDICAL HISTORY OF adopted Previous Surgical History PAST SURGICAL HISTORY Procedure Laterality Date CHOLECYSTECTOMY Cholecystectomy COLONOSCOPY FLX DX W/COLLJ SPEC WHEN PFRMD 11/30/98 Per repeat in EGD 11/30/98 Colonoscopy done at same time VAGINAL HYSTERECTOMY UTERUS 250 GM/< 1975 due to precancerous cells - not cancer Family History FAMILY HISTORY Adopted: Yes Patient Allergies ALLERGIES Allergen Reactions Benadryl [Diphenhyd* Caffeine Mental Status Change Compazine [Prochlor* Imipramine Mental Status Change Tcn [Tetracyclines] GI Upset Trulicity [Dulaglut* Mental Status Change Current Medications Current Outpatient Medications on File Prior to Visit Medication Sig LORazepam (ATIVAN) 1 mg tablet Take 1 tablet by mouth three times a day as needed for up to 90 days. amoxicillin-clavulanat e potassium (AUGMENTIN) 875-125 mg per tablet Take 1 tablet by mouth two times a day. Insulin Upatoi, Disposable, (BD ULTRA-FINE HEAVEN PEN NEEDLE) 32 gauge x Use one needle for each dose. 1/day. insulin glargine 100 unit/mL (3 mL) Inject 60 Units subcutaneously daily at bedtime. cholecalciferol, Vitamin D3, (VITAMIN D3) 1,250 mcg (50,000 unit) cap capsule Take 1 capsule by mouth one time a week. acetaminophen (TYLENOL EXTRA STRENGTH) 500 mg tablet Take 2 tablets by mouth once daily. clobetasol (TEMOVATE) 0.05 % cream Apply to affected area two times a day. No current facility-administered medications on file prior to visit. Social History Social History Tobacco Use Smoking status: Never Smokeless tobacco: Never Vaping Use Vaping status: Never Used Substance Use Topics Alcohol use: Yes Comment: Selom Drug use: No EXAM: BP 140/80 Pulse 88 Resp 16 Wt 96.8 kg (213 lb 6.5 oz) BMI 37.80 kg/m? General Appearance: Well appearing, alert, in no acute distress, well-hydrated, well nourished.. Lungs: Lungs clear to auscultation. No wheezing, rhonchi, rales.. Heart: RRR without murmur, gallop, or rubs. No ectopy. Health Maintenance List DTaP,Tdap,Td Vaccine(1 - Tdap) Never done Diabetic Foot Exam due on 01/30/2024 Dilated Retinal Exam due on 03/18/2024 Medicare Advantage Annual Wellness Visit Never done Urine Albumin:Creatinine Ratio due on 11/18/2024 Mammogram Screening due on 04/11/2025 Pneumococcal Vaccine: 50+(1 of 2 - PCV) due on 03/08/2025 Covid-19 Vaccine( - 2023- season) due on (more content not included)... [facility] CNOVon 02-13-2025 CNOV Office Visit (UCWSTR ) MAYA BLANCHARD ([id number]) 1950 F Date Time Provider Department 02/13/25 8:00 AM YUSUF KENDRICK [facility] During your visit today, we recorded the following information about you: Temperature Pulse Respiration Blood pressure 98.1 degrees 90/minute 20/minute 140/88 Weight 95.8 kg Yusuf Kendrick, LARS.TELEPHONE REPAIRER 02/13/2025 8:51 AM Signed Subjective HPI Nontoxic-appearing 74-year-old female presents urgent care complaint plaint ear pain. Duration of symptoms 2-week. Patient states pain is around earlobe. Has noticed some drainage behind her earring. Presents today for evaluation. Has used peroxide. This has not helped. Overall feels well. No fevers. Past medical history prescription medications allergies reviewed. .Patient presents with: Ear Pain: Left ear pain around piercing x 2 weeks PAST MEDICAL HISTORY Diagnosis Date Anxiety Chronic rhinitis deviated septum Diabetes mellitus type II, uncontrolled Esophageal reflux Moderate cervical dysplasia Other abnormal glucose Other and unspecified hyperlipidemia PMH - PAST MEDICAL HISTORY OF adopted PAST SURGICAL HISTORY Procedure Laterality Date CHOLECYSTECTOMY Cholecystectomy COLONOSCOPY FLX DX W/COLLJ SPEC WHEN PFRMD 11/30/98 Per repeat in EGD 11/30/98 Colonoscopy done at same time VAGINAL HYSTERECTOMY UTERUS 250 GM/< 1975 due to precancerous cells - not cancer ALLERGIES Benadryl [Diphenhydramine Hcl], Caffeine, Compazine [Prochlorperazine Edisylate], Imipramine, Tcn [Tetracyclines], and Trulicity [Dulaglutide] MEDICATIONS LORazepam (ATIVAN) 1 mg tablet Take 1 tablet by mouth three times a day as needed for up to 90 days. amoxicillin-clavulanat e potassium (AUGMENTIN) 875-125 mg per tablet Take 1 tablet by mouth two times a day. Insulin Upatoi, Disposable, (BD ULTRA-FINE HEAVEN PEN NEEDLE) 32 gauge x 5/32 Use one needle for each dose. 1/day. insulin glargine 100 unit/mL (3 mL) Inject 60 Units subcutaneously daily at bedtime. cholecalciferol, Vitamin D3, (VITAMIN D3) 1,250 mcg (50,000 unit) cap capsule Take 1 capsule by mouth one time a week. acetaminophen (TYLENOL EXTRA STRENGTH) 500 mg tablet Take 2 tablets by mouth once daily. clobetasol (TEMOVATE) 0.05 % cream Apply to affected area two times a day. FAMILY HISTORY Adopted: Yes Social History Tobacco Use Smoking status: Never Smokeless tobacco: Never Vaping Use Vaping status: Never Used Substance Use Topics Alcohol use: Yes Comment: Selom Drug use: No BP 140/88 Pulse 90 Temp 36.7 ?C (98.1 ?F) Resp 20 Wt 95.8 kg (211 lb 3.2 oz) SpO2 94% BMI 37.41 kg/m? Review of Systems Constitutional: Negative for chills, fever and malaise/fatigue. HENT: Positive for ear pain. Negative for congestion, ear discharge, hearing loss, sinus pain, sore throat and tinnitus. Eyes: Negative for blurred vision, pain, discharge and redness. Respiratory: Negative for cough, hemoptysis, sputum production, shortness of breath, wheezing and stridor. Cardiovascular: Negative for chest pain. Gastrointestinal: Negative for abdominal pain, diarrhea, nausea and vomiting. Musculoskeletal: Negative for myalgias. Skin: Negative for itching and rash. Neurological: Negative for dizziness and headaches. Objective Physical Exam Constitutional: General: She is not in acute distress. Appearance: She is not diaphoretic. HENT: Head: Normocephalic. Jaw: No trismus, tenderness, swelling or pain on movement. Right Ear: External ear normal. Left Ear: Tympanic membrane and ear canal normal. Ears: Comments: Mild erythema some drainage noted highlighted area. No abscess formation. No involvement of ear cartilage. No evidence of perichondritis. No adenopathy. No remote redness. Mouth/Throat: Mouth: Mucous membranes are moist. Pharynx: Oropharynx is clear. Uvula midline. No pharyngeal swelling, oropharyngeal exudate, posterior oropharyngeal erythema or uvula swelling. Eyes: Conjunctiva/sclera: Conjunctivae normal. Pupils: Pupils are equal, round, and reactive to light. Cardiovascular: Rate and Rhythm: Normal rate and regular rhythm. Heart sounds: Normal heart sounds. Pulmonary: Effort: Pulmonary effort is normal. No tachypnea, accessory muscle usage or respiratory distress. Breath sounds: Normal breath sounds. No stridor. No wheezing, rhonchi or rales. Musculoskeletal: Cervical back: Normal range of motion and neck supple. No edema, erythema, rigidity or tenderness. No pain with movement. Normal range of motion. Lymphadenopathy: Cervical: No cervical adenopathy. Skin: General: Skin is warm and dry. Neurological: Mental Status: She is alert and oriented to person, place, and time. ASSESSMENT/PLAN: 1. Cellulitis of antihelix of left ear - ICD9: 380.10, ICD10: H60.12 Diagnosed cellulitis. Placed on Ke (more content not included)... [facility] Basic metabolic 2000 panelon 01-26-2025 Anion gap [Moles/Vol] 11 mmol/L Normal 8-15 [facility] Comment on above: Order Comment: Speci men Type: BLOOD SPECIMENOrdering Facility: [facility] Address: [address] [place] [address] Performed By: #### 2 4321-2 ####[facility] LABCLIA [id number] [place] [address] [place] Calcium [Mass/Vol] 8.7 mg/dL Normal 8.5-10.2 [facility] Comment on above: Order Comment: Speci men Type: BLOOD SPECIMENOrdering Facility: [facility] Address: [address] [place] [address] Performed By: #### 2 4321-2 ####[facility] LABCLIA [id number] [place] [id number] [place] Chloride [Moles/Vol] 101 mmol/L Normal 98-107 [facility] Comment on above: Order Comment: Speci men Type: BLOOD SPECIMENOrdering Facility: [facility] Address: [address] [place] [address] Performed By: #### 2 4321-2 ####[facility] LABCLIA [id number] [place] [id number] [place] CO2 [Moles/Vol] 22 mmol/L Normal 22-30 [facility] Comment on above: Order Comment: Speci men Type: BLOOD SPECIMENOrdering Facility: [facility] Address: [address] [place] [address] Performed By: #### 2 4321-2 ####[facility] LABIA [id number] [place] [id number] [place] Creatinine [Mass/Vol] 0.62 mg/dL Normal 0.58-0.96 [facility] Comment on above: Order Comment: Speci men Type: BLOOD SPECIMENOrdering Facility: [facility] Address: [address] [place] [address] Performed By: #### 2 4321-2 ####[facility] [id number] [place] [address] [place] Creatinine and Glomerular filtration rate.predicted panel (S/P/Bld) 95 mL/min/1.73m??? Normal >=60 [facility] Comment on above: Order Comment: Speci men Type: BLOOD SPECIMENOrdering Facility: [facility] Address: [address] [place] [address] Result Comment: Irina mated Glomerular Filtration Rate (eGFR) is calculated using the 2020 CKD-EPI creatinine equation. This equation utilizes serum creatinine, sex, and age as parameters. The creatinine assay has traceable calibration to isotope dilution-mass spectrometry. Refer to KDIGO guidelines for clinical interpretation. In patients with unstable renal function, e.g. those with acute kidney injury, the eGFR may not accurately reflect actual GFR. Performed By: #### 2 4321-2 ####[facility] LABIA [id number] [place] [id number] [place] Glucose [Mass/Vol] 203 mg/dL High 74-99 [facility] Comment on above: Order Comment: Speci men Type: BLOOD SPECIMENOrdering Facility: [facility] Address: [address] [id number] Result Comment: The [place] Diabetes Association (ADA) provides guidance for cutoff values for fasting glucose and random glucose. The ADA defines fasting as no caloric intake for at least 8 hours. Fasting plasma glucose results between 100 to 125 mg/dL indicate increased risk for diabetes (prediabetes). Fasting plasma glucose results greater than or equal to 126 mg/dL meet the criteria for diagnosis of diabetes. In the absence of unequivocal hyperglycemia, results should be confirmed by repeat testing. In a patient with classic symptoms of hyperglycemia or hyperglycemic crisis, random plasma glucose results greater than or equal to 200 mg/dL meet the criteria for diagnosis of diabetes. Reference: Standards of Medical Care in Diabetes 2016, [place] Diabetes Association. Diabetes Care. 2016.39(Suppl 1). Performed By: #### 2 4321-2 ####[facility] LABCLIA [id number] [place] [address] [place] Potassium [Moles/Vol] 4.4 mmol/L Normal 3.7-5.1 [facility] Comment on above: Order Comment: Speci men Type: BLOOD SPECIMENOrdering Facility: [facility] Address: [address] [id number] Performed By: #### 2 4321-2 ####[facility] LABIA [id number] [place] [address] [place] Sodium [Moles/Vol] 134 mmol/L Low 136-144 [facility] Comment on above: Order Comment: Speci men Type: BLOOD SPECIMENOrdering Facility: [facility] Address: [address] [id number] Performed By: #### 2 4321-2 ####[facility] LABIA [id number] [place] [id number] [place] Urea nitrogen [Mass/Vol] 14 mg/dL Normal 7-21 [facility] Comment on above: Order Comment: Speci men Type: BLOOD SPECIMENOrdering Facility: [facility] Address: [address] [place] [address] Performed By: #### 2 4321-2 ####[facility] LABIA [id number] [place] [address] [place] CBC panel Auto (Bld)on 01-26 Erythrocyte distribution width (RBC) [Ratio] 13.3 % Normal 11.5-15.0 [facility] Comment on above: Order Comment: Speci men Type: BLOOD SPECIMENOrdering Facility: [facility] Address: [address] [place] [address] Performed By: #### 5 8410-2 ####[facility] LABIA [id number] [place] [address] [place] Hematocrit (Bld) [Volume fraction] 43.4 % Normal 36.0-46.0 [facility] Comment on above: Order Comment: Speci men Type: BLOOD SPECIMENOrdering Facility: [facility] Address: [address] [place] [address] Performed By: #### 5 8410-2 ####[facility] LABIA [id number] [place] [address] [place] Hemoglobin (Bld) [Mass/Vol] 14.0 g/dL Normal 11.5-15.5 [facility] Comment on above: Order Comment: Speci men Type: BLOOD SPECIMENOrdering Facility: [facility] Address: [address] [place] [address] Performed By: #### 5 8410-2 ####[facility] LABCLIA [id number] [place] [id number] [place] MCH (RBC) [Entitic mass] 28.7 pg Normal 26.0-34.0 [facility] Comment on above: Order Comment: Speci men Type: BLOOD SPECIMENOrdering Facility: [facility] Address: [address] [place] [address] Performed By: #### 5 8410-2 ####[facility] LABCLIA [id number] [address] [place] MCHC (RBC) [Mass/Vol] 32.3 g/dL Normal 30.5-36.0 [facility] Comment on above: Order Comment: Speci men Type: BLOOD SPECIMENOrdering Facility: [facility] Address: [address] [place] [address] Performed By: #### 5 8410-2 ####[facility] LABCLIA [id number] [place] [address] [place] MCV (RBC) [Entitic vol] 88.9 fL Normal 80.0-100.0 [facility] Comment on above: Order Comment: Speci men Type: BLOOD SPECIMENOrdering Facility: [facility] Address: [address] [place] [address] Performed By: #### 5 8410-2 ####[facility] LABCLIA [id number] [place] [address] [place] Nucleated RBC (Bld) [#/Vol] 10*3/uL Normal <0.01 [facility] Comment on above: Order Comment: Speci men Type: BLOOD SPECIMENOrdering Facility: [facility] Address: [address] [place] [address] Performed By: #### 5 8410-2 ####[facility] LABIA [id number] [place] [address] [place] Platelet mean volume (Bld) [Entitic vol] 12.0 fL Normal 9.0-12.7 [facility] Comment on above: Order Comment: Speci men Type: BLOOD SPECIMENOrdering Facility: [facility] Address: [address] [place] [address] Performed By: #### 5 8410-2 ####[facility] LABCLIA [id number] [place] [address] [place] Platelets (Bld) [#/Vol] 308 10*3/uL Normal 150-400 [facility] Comment on above: Order Comment: Speci men Type: BLOOD SPECIMENOrdering Facility: [facility] Address: [address] [place] [address] Performed By: #### 5 8410-2 ####[facility] LABCLIA [id number] [address] [address] [place] RBC (Bld) [#/Vol] 4.88 10*6/uL Normal 3.90-5.20 [facility] Comment on above: Order Comment: Speci men Type: BLOOD SPECIMENOrdering Facility: [facility] Address: [address] [place] [address] Performed By: #### 5 8410-2 ####[facility] LABIA [id number] [place] [address] [place] WBC (Bld) [#/Vol] 9.95 10*3/uL Normal 3.70-11.00 [facility] Comment on above: Order Comment: Speci men Type: BLOOD SPECIMENOrdering Facility: [facility] Address: [address] [place] [address] Performed By: #### 5 8410-2 ####[facility] LABCLIA [id number] [place] [address] [place] HbA1c (Bld)on 01-26-2025 Average glucose Estimated from glycated hemoglobin (Bld) [Mass/Vol] 192 mg/dL Normal [facility] Comment on above: Order Comment: Speci men Type: BLOOD SPECIMENOrdering Facility: [facility] Address: [address] [place] [address] Result Comment: eAG: (Estimated average glucose) is a calculated value from HgbA1c and is wholesale representative of the average blood glucose level in the last 2-3 month period. Performed By: #### 5 5454-3 ####[facility] LABCLIA [id number] [address] [address] [place] HbA1c (Bld) [Mass fraction] 8.3 % High 4.3-5.6 [facility] Comment on above: Order Comment: Speci men Type: BLOOD SPECIMENOrdering Facility: [facility] Address: [address] [place] [address] Result Comment: [place] Diabetes Association guidelines indicate that patients with HgbA1c in the range 5.7-6.4% are at increased risk for development of diabetes, and intervention by lifestyle modification may be beneficial. HgbA1c greater or equal to 6.5% is considered diagnostic of diabetes. Performed By: #### 5 5454-3 ####[facility] LABCLIA [id number] [address] CNPMirtha 01-16-2025 CNPN Telephone (FAMRoxannaWS) MAYA BLANCHARD ([id number]) 1950 F Date Time Provider Department 01/16/[facility] During your visit today, we recorded the following information about you: Axel Chavez RN 01/16/2025 12:37 PM Signed Patient calls to ask if provider wants to order any lab work prior to her upcoming appointment on 02/07/2025. Patient last had a HBG A1C, CMP, and Lipid Panel completed on 12/07/2024. Please review and advise, LUBA Medel Mark D, MD 01/16/2025 6:52 PM Signed Lab sordered MD Andrew Harkins Amanda, RN 01/16/2025 6:56 PM Signed Called and left a voicemail for the Patient to call back and ask for a nurse to receive the providers message. LUBA Marquis Sherrie, RN 01/17/2025 8:42 AM Signed Patient returned call and given provider's message below and patient verbalized understanding. Monserrat Pagan RN Allergies As of Date: 01/16/2025 Noted Allergy Reaction BENADRYL (DIPHENHYDRAMINE HCL) 07/17/2005 CAFFEINE 08/14/2005 1 - Mental Status Change COMPAZINE (PROCHLORPERAZINE EDISY*07/17/2005 IMIPRAMINE 08/14/2005 1 - Mental Status Change TCN (TETRACYCLINES) 08/14/2005 8 - GI Upset TRULICITY (DULAGLUTIDE) 10/21/2022 1 - Mental Status Change Date Reviewed: 10/31/2024 Reviewed by: Santa Herrera MA - Fully Assessed Reason for Visit: Patient Question [1477] Orders [681] Primary Visit Diagnosis:Type 2 diabetes mellitus with hyperglycemia, unspecified whether extermination supervisor insulin use (HCC) [E11.65] Other Visit Diagnosis:Essential hypertension [I10] Order(s):HEMOGLOBIN A1C [OUADL4B] Order #: [id number] FUTURE COMPLETE BLOOD COUNT [SQCBC] Order #: [id number] FUTURE BASIC METABOLIC PANEL [SQBMP] Order #: [id number] FUTURE Prescriptions as of 01/17/2025 - LORazepam (ATIVAN) 1 mg tablet Take 1 tablet by mouth three times a day as needed for up to 90 days. - amoxicillin-clavulanat e potassium (AUGMENTIN) 875-125 mg per tablet Take 1 tablet by mouth two times a day. - Insulin Upatoi, Disposable, (BD ULTRA-FINE HEAVEN PEN NEEDLE) 32 gauge x 5/32 Use one needle for each dose. 1/day. - insulin glargine 100 unit/mL (3 mL) Inject 60 Units subcutaneously daily at bedtime. - cholecalciferol, Vitamin D3, (VITAMIN D3) 1,250 mcg (50,000 unit) cap capsule Take 1 capsule by mouth one time a week. - acetaminophen (TYLENOL EXTRA STRENGTH) 500 mg tablet Take 2 tablets by mouth once daily. - clobetasol (TEMOVATE) 0.05 % cream Apply to affected area two times a day. Problem List As Of Date 01/16/2025 Noted Resolved ESOPHAGEAL REFLUX [K21.9] CHRONIC RHINITIS [J31.0] 09/12/2005 DYSMETABOLIC SYNDROME X [E88.810] 09/12/2005 09/02/2007 Mixed hyperlipidemia [E78.2] Other abnormal glucose [R73.09] 08/28/2016 ABNORMAL PAP SMEAR OF CERVIX NEC AND HPV [R89.6]09/02/2007 Essential hypertension, benign [I10] 09/02/2007 06/30/2012 Nonspecific abnormal results of thyroid functio*10/05/2007 08/28/2016 Elevated BP [CKH6444] 06/30/2012 08/28/2016 Type 2 diabetes mellitus with hyperglycemia (HC*05/26/2023 Anxiety and depression [F41.9, F32.A] 08/28/2016 Essential hypertension [I10] 08/28/2016 History of stroke [Z86.73] 12/02/2021 Non-compliance [Z91.199] 12/03/2021 Type 2 diabetes mellitus with diabetic neuropat*10/21/2022 Type 2 diabetes mellitus with peripheral vascul*12/02/2021 Current use of insulin (HCC) [Z79.4] 05/26/2023 Major depressive disorder, recurrent, mild (HCC*08/28/2023 Class 2 severe obesity with serious comorbidity*08/28/2023 Medications Discontinued During This Encounter Prescriptions - sertraline (ZOLOFT) 25 mg tablet (Discontinued) Reported on 10/13/2024 Encounter Status:Closed by ELLE PAGAN on 01/17/25 Normal [facility] Comprehensive metabolic 2000 panelon 12-07-2024 Albumin [Mass/Vol] 4.0 g/dL Normal 3.9-4.9 [facility] Comment on above: Order Comment: Speci men Type: BLOOD SPECIMENOrdering Facility: [facility] Address: [address] [place] [address] Performed By: #### 2 4323-8, 03795-3 ####[facility] LABCLIA [id number] [place] [address] [place] ALP [Catalytic activity/Vol] 78 U/L Normal 34-123 [facility] Comment on above: Order Comment: Speci men Type: BLOOD SPECIMENOrdering Facility: [facility] Address: [address] [place] [address] Performed By: #### 2 3933-8, 80502-3 ####[facility] LABCLIA [id number] [facility] [address] [place] [address] [place] ALT [Catalytic activity/Vol] 19 U/L Normal 7-38 [facility] Comment on above: Order Comment: Speci men Type: BLOOD SPECIMENOrdering Facility: [facility] Address: [address] [place] [address] Performed By: #### 2 4323-8, 73472-9 ####[facility] LABCLIA [id number] [address] [place] [address] [place] Anion gap [Moles/Vol] 10 mmol/L Normal 8-15 [facility] Comment on above: Order Comment: Speci men Type: BLOOD SPECIMENOrdering Facility: [facility] Address: [address] [place] [address] Performed By: #### 2 4323-8, 17998-6 ####[facility] LABCLIA [id number] [place] [id number] [place] AST [Catalytic activity/Vol] 23 U/L Normal 13-35 [facility] Comment on above: Order Comment: Speci men Type: BLOOD SPECIMENOrdering Facility: [facility] Address: [address] [place] [address] Performed By: #### 2 4323-8, 55657-6 ####[facility] LABCLIA [id number] [place] [id number] [place] Bilirubin [Mass/Vol] 0.8 mg/dL Normal 0.2-1.3 [facility] Comment on above: Order Comment: Speci men Type: BLOOD SPECIMENOrdering Facility: [facility] Address: [address] [place] [address] Performed By: #### 2 4323-8, 15775-2 ####[facility] LABCLIA [id number] [place] [id number] [place] Calcium [Mass/Vol] 9.4 mg/dL Normal 8.5-10.2 [facility] Comment on above: Order Comment: Speci men Type: BLOOD SPECIMENOrdering Facility: [facility] Address: [address] [place], [place] [address] Performed By: #### 2 4323-8, 19024-5 ####[facility] LABCLIA [id number] [facility] [address] [address] [place] Chloride [Moles/Vol] 101 mmol/L Normal 98-107 [facility] Comment on above: Order Comment: Speci men Type: BLOOD SPECIMENOrdering Facility: [facility] Address: [address] [place] [address] Performed By: #### 2 4323-8, 05864-5 ####[facility] LABCLIA [id number] [place] [id number] [place] CO2 [Moles/Vol] 27 mmol/L Normal 22-30 [facility] Comment on above: Order Comment: Speci men Type: BLOOD SPECIMENOrdering Facility: [facility] Address: [address] [place] [address] Performed By: #### 2 4323-8, 92118-4 ####[facility] LABCLIA [id number] [facility] [address] [address] [place] Creatinine [Mass/Vol] 0.65 mg/dL Normal 0.58-0.96 [facility] Comment on above: Order Comment: Speci men Type: BLOOD SPECIMENOrdering Facility: [facility] Address: [address] [place] [address] Performed By: #### 2 4323-8, 26113-6 ####[facility] LABCLIA [id number] [facility] [address] [place] [address] [place] Creatinine and Glomerular filtration rate.predicted panel (S/P/Bld) 94 mL/min/1.73m??? Normal >=60 [facility] Comment on above: Order Comment: Carlos martin Type: BLOOD SPECIMENOrdering Facility: [facility] Address: [address] [place] [address] Result Comment: Irina mated Glomerular Filtration Rate (eGFR) is calculated using the 2020 CKD-EPI creatinine equation. This equation utilizes serum creatinine, sex, and age as parameters. The creatinine assay has traceable calibration to isotope dilution-mass spectrometry. Refer to KDIGO guidelines for clinical interpretation. In patients with unstable renal function, e.g. those with acute kidney injury, the eGFR may not accurately reflect actual GFR. Performed By: #### 2 4323-8, 07770-7 ####[facility] [id number] [place] [address] [place] Glucose [Mass/Vol] 112 mg/dL High 74-99 [facility] Comment on above: Order Comment: Carlos martin Type: BLOOD SPECIMENOrdering Facility: [facility] Address: [address] [place] [address] Result Comment: The [place] Diabetes Association (ADA) provides guidance for cutoff values for fasting glucose and random glucose. The ADA defines fasting as no caloric intake for at least 8 hours. Fasting plasma glucose results between 100 to 125 mg/dL indicate increased risk for diabetes (prediabetes). Fasting plasma glucose results greater than or equal to 126 mg/dL meet the criteria for diagnosis of diabetes. In the absence of unequivocal hyperglycemia, results should be confirmed by repeat testing. In a patient with classic symptoms of hyperglycemia or hyperglycemic crisis, random plasma glucose results greater than or equal to 200 mg/dL meet the criteria for diagnosis of diabetes. Reference: Standards of Medical Care in Diabetes 2016, [place] Diabetes Association. Diabetes Care. 2016.39(Suppl 1). Performed By: #### 2 4323-8, 71636-5 ####[facility] [id number] [place] [id number] [place] Potassium [Moles/Vol] 4.3 mmol/L Normal 3.7-5.1 [facility] Comment on above: Order Comment: Carlos martin Type: BLOOD SPECIMENOrdering Facility: [facility] Address: [address] [place] [address] Performed By: #### 2 4323-8, 38223-1 ####[facility] LABCLIA [id number] [address] [address] [place] Protein [Mass/Vol] 8.0 g/dL Normal 6.3-8.0 [facility] Comment on above: Order Comment: Speci men Type: BLOOD SPECIMENOrdering Facility: [facility] Address: [address] [place] [address] Performed By: #### 2 4323-8, 59488-1 ####[facility] LABIA [id number] [place] [address] [place] Sodium [Moles/Vol] 138 mmol/L Normal 136-144 [facility] Comment on above: Order Comment: Speci men Type: BLOOD SPECIMENOrdering Facility: [facility] Address: [address] [place] [address] Performed By: #### 2 4323-8, 10024-2 ####[facility] LABIA [id number] [place] [id number] [place] Urea nitrogen [Mass/Vol] 11 mg/dL Normal 7-21 [facility] Comment on above: Order Comment: Speci men Type: BLOOD SPECIMENOrdering Facility: [facility] Address: [address] [place] [address] Performed By: #### 2 4323-8, 21910-0 ####[facility] LABIA [id number] [place] [id number] [place] HbA1c (Bld)on 12-07-2024 Average glucose Estimated from glycated hemoglobin (Bld) [Mass/Vol] 186 mg/dL Normal [facility] Comment on above: Order Comment: Speci men Type: BLOOD SPECIMENOrdering Facility: [facility] Address: [address] [place] [address] Result Comment: eAG: (Estimated average glucose) is a calculated value from HgbA1c and is wholesale representative of the average blood glucose level in the last 2-3 month period. Performed By: #### 5 5454-3 ####[facility] LABCLIA [id number] [place] [address] [place] HbA1c (Bld) [Mass fraction] 8.1 % High 4.3-5.6 [facility] Comment on above: Order Comment: Carlos martin Type: BLOOD SPECIMENOrdering Facility: [facility] Address: [address] [place] [address] Result Comment: [place] Diabetes Association guidelines indicate that patients with HgbA1c in the range 5.7-6.4% are at increased risk for development of diabetes, and intervention by lifestyle modification may be beneficial. HgbA1c greater or equal to 6.5% is considered diagnostic of diabetes. Performed By: #### 5 5454-3 ####[facility] LABIA [id number] [place] [address] [place] Lipid 1996 panelon 5 Cholesterol [Mass/Vol] 220 mg/dL High <200 [facility] Comment on above: Order Comment: Carlos martin Type: BLOOD SPECIMENOrdering Facility: [facility] Address: [address] [place] [address] Result Comment: <200 mg/dL, Desirable 200-239 mg/dL, Borderline high >239 mg/dL, High Performed By: #### 2 4323-8, 32184-9 ####[facility] LABIA [id number] [address] [place] Cholesterol in HDL [Mass/Vol] 52 mg/dL Normal >39 [facility] Comment on above: Order Comment: Carlos martin Type: BLOOD SPECIMENOrdering Facility: [facility] Address: [address] [place] [address] Result Comment: 40-5 9 mg/dL, Acceptable >59 mg/dL, High: Negative risk factor for coronary heart disease <40 mg/dL, Low: Positive risk factor for coronary heart disease Performed By: #### 2 4323-8, 85169-1 ####[facility] LABCLIA [id number] [address] [address] [place] Cholesterol in LDL [Mass/Vol] 139 mg/dL High <100 [facility] Comment on above: Order Comment: Speci men Type: BLOOD SPECIMENOrdering Facility: [facility] Address: [address] [place] [address] Result Comment: <100 mg/dL, Optimal 100-129 mg/dL, Near optimal/above optimal 130-159 mg/dL, Borderline high 160-189 mg/dL, High >189 mg/dL, Very high Secondary prevention optimal LDL Cholesterol levels are recommended to be <70 mg/dL LDL cholesterol is calculated using the Irvin-NIH equation. Performed By: #### 2 4323-8, ####[facility] LABIA [id number] [place] [id number] [place] Cholesterol in LDL/Cholesterol in HDL [Mass ratio] 2.67 {ratio} High <2.54 [facility] Comment on above: Order Comment: Speci men Type: BLOOD SPECIMENOrdering Facility: [facility] Address: [address] [place] [address] Result Comment: Refe lacie: 1. National Cholesterol Education Program ATP III Guideline At-A-Glance Quick Desk Reference: National Heart, Lung, and Blood [place]. National Institutes of Health. 2001: NIH Publication No. 01-3305. 2. An International Atherosclerosis Society position paper: global recommendations for the management of dyslipidemia: executive summary, Atherosclerosis. 2014: 232(2):410-413. Performed By: #### 2 4323-8, ####[facility] LABIA [id number] [address] [address] [place] Cholesterol in VLDL [Mass/Vol] 30 mg/dL High <30 [facility] Comment on above: Order Comment: Speci men Type: BLOOD SPECIMENOrdering Facility: [facility] Address: [address] [place] [address] Performed By: #### 2 432-8, ####[facility] LABCLIA [id number] [address] [address] [place] Cholesterol non HDL [Mass/Vol] 168 mg/dL High <130 [facility] Comment on above: Order Comment: Speci men Type: BLOOD SPECIMENOrdering Facility: [facility] Address: [address] [place] [address] Result Comment: <130 mg/dL, Optimal 130-159 mg/dL, Near optimal/above optimal 160-189 mg/dL, Borderline high 190-219 mg/dL, High >219 mg/dL, Very high Secondary prevention optimal non HDL Cholesterol levels are recommended to be <100 mg/dL Performed By: #### 2 4323-8, ####[facility] LABCLIA [id number] [place] [address] [place] Cholesterol.total/Ch olesterol in HDL [Mass ratio] 4.23 {ratio} Normal <5.10 [facility] Comment on above: Order Comment: Speci men Type: BLOOD SPECIMENOrdering Facility: [facility] Address: [address] [place] [address] Performed By: #### 2 4323-8, ####[facility] LABCLIA [id number] [place] [address] [place] FASTING TIME 15 hrs Normal [facility] Comment on above: Order Comment: Speci men Type: BLOOD SPECIMENOrdering Facility: [facility] Address: [address] [place] [address] Performed By: #### 2 4323-8, 91967-6 ####[facility] LABCLIA [id number] [place] [address] [place] Triglyceride [Mass/Vol] 165 mg/dL High <150 [facility] Comment on above: Order Comment: Speci men Type: BLOOD SPECIMENOrdering Facility: [facility] Address: [address] [place] [address] Result Comment: <150 mg/dL, Normal 150-199 mg/dL, Borderline high 200-499 mg/dL, High >499 mg/dL, Very high Performed By: #### 2 [id number], [id number] ####[facility] STAS [id number] DANIELLE DANIEL [place] [id number] [facility] Walter 11-18-2024 CNPN Telephone (FAMPWS) MAYA BLANCHARD ([id number]) 1950 F Date Time Provider Department 11/18/24 [facility] During your visit today, we recorded the following information about you: Caridad Gallardo LPN 11/18/2024 8:24 AM Signed Patient calling she recently completed antibiotic rx and now having yeast infection symptoms. She is having vaginal itching, no discharge yet. Patient asking for a Diflucan rx to be sent to [facility] pharmacy please. Pending rx if wanted, needs completed. Please advise Reno Moore APRN.NICK 11/18/2024 8:38 AM Signed Please let the patient know that I have sent Diflucan as requested. The following approved medication requests have been transmitted electronically. Requested Prescriptions Signed Prescriptions Disp Refills fluconazole (DIFLUCAN) 150 mg tablet 2 tablet 0 Sig: Take 1 tablet by mouth one time only for 1 dose. Repeat in 3 days as needed. Authorizing Provider: RENO MOORE APRN.Delmis Pozo LPN 11/18/2024 8:42 AM Signed Left detailed message on patients voicemail. Allergies As of Date: 11/18/2024 Noted Allergy Reaction BENADRYL (DIPHENHYDRAMINE HCL) 07/17/2005 CAFFEINE 08/14/2005 1 - Mental Status Change COMPAZINE (PROCHLORPERAZINE EDISY*07/17/2005 IMIPRAMINE 08/14/2005 1 - Mental Status Change TCN (TETRACYCLINES) 08/14/2005 8 - GI Upset TRULICITY (DULAGLUTIDE) 10/21/2022 1 - Mental Status Change Date Reviewed: 10/31/2024 Reviewed by: Santa Herrera MA - Fully Assessed Reason for Visit: Medication Request [138] Primary Visit Diagnosis:Vaginal yeast infection [B37.31] Order(s):fluconazole (DIFLUCAN) 150 mg tabletTake 1 tablet by mouth one time only for 1 dose. Repeat in 3 days as needed.Disp: 2 tabletRfl: 0 Prescriptions as of 11/18/2024 - fluconazole (DIFLUCAN) 150 mg tablet Take 1 tablet by mouth one time only for 1 dose. Repeat in 3 days as needed. - amoxicillin-clavulanat e potassium (AUGMENTIN) 875-125 mg per tablet Take 1 tablet by mouth two times a day. - Insulin Upatoi, Disposable, (BD ULTRA-FINE HEAVEN PEN NEEDLE) 32 gauge x 32 Use one needle for each dose. 1/day. - LORazepam (ATIVAN) 1 mg tablet Take 1 tablet by mouth three times a day as needed for up to 90 days. - sertraline (ZOLOFT) 25 mg tablet Take 1 tablet by mouth once daily. - insulin glargine 100 unit/mL (3 mL) Inject 60 Units subcutaneously daily at bedtime. - cholecalciferol, Vitamin D3, (VITAMIN D3) 1,250 mcg (50,000 unit) cap capsule Take 1 capsule by mouth one time a week. - acetaminophen (TYLENOL EXTRA STRENGTH) 500 mg tablet Take 2 tablets by mouth once daily. - clobetasol (TEMOVATE) 0.05 % cream Apply to affected area two times a day. Problem List As Of Date 11/18/2024 Noted Resolved ESOPHAGEAL REFLUX [K21.9] CHRONIC RHINITIS [J31.0] 09/12/2005 DYSMETABOLIC SYNDROME X [E88.810] 09/12/2005 09/02/2007 Mixed hyperlipidemia [E78.2] Other abnormal glucose [R73.09] 08/28/2016 ABNORMAL PAP SMEAR OF CERVIX NEC AND HPV [R89.6]09/02/2007 Essential hypertension, benign [I10] 09/02/2007 06/30/2012 Nonspecific abnormal results of thyroid functio*10/05/2007 08/28/2016 Elevated BP [PUM9343] 06/30/2012 08/28/2016 Type 2 diabetes mellitus with hyperglycemia (HC*05/26/2023 Anxiety and depression [F41.9, F32.A] 08/28/2016 Essential hypertension [I10] 08/28/2016 History of stroke [Z86.73] 12/02/2021 Non-compliance [Z91.199] 12/03/2021 Type 2 diabetes mellitus with diabetic neuropat*10/21/2022 Type 2 diabetes mellitus with peripheral vascul*12/02/2021 Current use of insulin (HCC) [Z79.4] 05/26/2023 Major depressive disorder, recurrent, mild (HCC*08/28/2023 Class 2 severe obesity with serious comorbidity*08/28/2023 Prescriptions ordered this encounter Disp Refills Start End FLUCONAZOLE 150 MG TABLET 2 ta* 0 11/18/2024 11/18/2024 Route: ORAL Sig: Take 1 tablet by mouth one time only for 1 dose. Repeat in 3 days as needed. Medications Discontinued During This Encounter Prescriptions - fluconazole (DIFLUCAN) 150 mg tablet (Discontinued) Take 1 tablet by mouth one time only for 1 dose. Repeat in 3 days as needed. - azithromycin (ZITHROMAX Z-ALVIN) 250 mg tablet (Discontinued) 2 tablets by mouth first day then 1 tablet the next 4 days Encounter Status:Closed by DELMIS JACKSON on 11/18/24 [facility] Walter 11-07-2024 [facility] MAYA BLANCHARD ([id number]) 1950 F Date Time Provider Department 11/07/24 JANET LITTLE [facility] During your visit today, we recorded the following information about you: Keesha Hernandez RN 11/07/2024 8:20 AM Signed Pt asking if pcp can prescribe her augmentin. Advised pt she would need an appt to allow provider to assess if augmentin is needed. Pt declined. Pt states she had appt with pcp last Thu, and was prescribed zpak for watery eyes, yahir ear pain, stuffy nose, and sore throat. States she is still having these symptoms. Please advise patient. [phone] Janet Little MD 11/07/2024 12:51 PM Signed Since she has not improved with Zpak it is OK to change to Augmentin as ordered MD Brigette Harkins Barbara, LPN 11/07/2024 12:55 PM Signed Patient notified of new Rx, verbalizes understanding of instructions. Rudolph Machuca LPN Allergies As of Date: 11/07/2024 Noted Allergy Reaction BENADRYL (DIPHENHYDRAMINE HCL) 07/17/2005 CAFFEINE 08/14/2005 1 - Mental Status Change COMPAZINE (PROCHLORPERAZINE EDISY*07/17/2005 IMIPRAMINE 08/14/2005 1 - Mental Status Change TCN (TETRACYCLINES) 08/14/2005 8 - GI Upset TRULICITY (DULAGLUTIDE) 10/21/2022 1 - Mental Status Change Date Reviewed: 10/31/2024 Reviewed by: Santa Herrera MA - Fully Assessed Reason for Visit: Patient Question [3237] Order(s):amoxicillin-c lavulanate potassium (AUGMENTIN) 875-125 mg per tabletTake 1 tablet by mouth two times a day.Disp: 20 tabletRfl: 0 Prescriptions as of 11/07/2024 - amoxicillin-clavulanat e potassium (AUGMENTIN) 875-125 mg per tablet Take 1 tablet by mouth two times a day. - azithromycin (ZITHROMAX Z-ALVIN) 250 mg tablet 2 tablets by mouth first day then 1 tablet the next 4 days - Insulin Upatoi, Disposable, (BD ULTRA-FINE HEAVEN PEN NEEDLE) 32 gauge x 32 Use one needle for each dose. 1/day. - LORazepam (ATIVAN) 1 mg tablet Take 1 tablet by mouth three times a day as needed for up to 90 days. - sertraline (ZOLOFT) 25 mg tablet Take 1 tablet by mouth once daily. - insulin glargine 100 unit/mL (3 mL) Inject 60 Units subcutaneously daily at bedtime. - cholecalciferol, Vitamin D3, (VITAMIN D3) 1,250 mcg (50,000 unit) cap capsule Take 1 capsule by mouth one time a week. - acetaminophen (TYLENOL EXTRA STRENGTH) 500 mg tablet Take 2 tablets by mouth once daily. - clobetasol (TEMOVATE) 0.05 % cream Apply to affected area two times a day. Problem List As Of Date 11/07/2024 Noted Resolved ESOPHAGEAL REFLUX [K21.9] CHRONIC RHINITIS [J31.0] 09/12/2005 DYSMETABOLIC SYNDROME X [E88.810] 09/12/2005 09/02/2007 Mixed hyperlipidemia [E78.2] Other abnormal glucose [R73.09] 08/28/2016 ABNORMAL PAP SMEAR OF CERVIX NEC AND HPV [R89.6]09/02/2007 Essential hypertension, benign [I10] 09/02/2007 06/30/2012 Nonspecific abnormal results of thyroid functio*10/05/2007 08/28/2016 Elevated BP [[id number]] 06/30/2012 08/28/2016 Type 2 diabetes mellitus with hyperglycemia (HC*05/26/2023 Anxiety and depression [F41.9, F32.A] 08/28/2016 Essential hypertension [I10] 08/28/2016 History of stroke [Z86.73] 12/02/2021 Non-compliance [Z91.199] 12/03/2021 Type 2 diabetes mellitus with diabetic neuropat*10/21/2022 Type 2 diabetes mellitus with peripheral vascul*12/02/2021 Current use of insulin (HCC) [Z79.4] 05/26/2023 Major depressive disorder, recurrent, mild (HCC*08/28/2023 Class 2 severe obesity with serious comorbidity*08/28/2023 Prescriptions ordered this encounter Disp Refills Start End AMOXICILLIN 875 MG-POTASSIUM CLAVULA* 20 t* 0 11/07/2024 Route: ORAL Sig: Take 1 tablet by mouth two times a day. Encounter Status:Closed by RUDOLPH MACHUCA on 11/07/24 [facility] CNOVon 10-31-2024 CNOV Office Visit (FAMPWS ) MAYA BLANCHARD ([id number]) 1950 F Date Time Provider Department 10/31/24 2:00 PM JANET LITTLE During your visit today, we recorded the following information about you: Temperature Pulse Respiration Blood pressure 99 degrees 98/minute 18/minute 160/90 Weight 93.5 kg Janet Little MD 10/31/2024 3:29 PM Signed /Chief Complaint Patient presents with: Illness HPI Maya Blanchard is a 74 year old female who presents here today for illness. Pt c/o sinus infection, cough, ear pain, eyes burning and watering, crusted in the mornings, headache, sore throat, head congestion x 2 weeks, she is not any worse but not any better. Only had temp for 1-2 days. No SOB or wheezing. [facility] and was negative for strep. Was not tested for Covid, flu, or RSV. Has been gargling with warm water, nasal lavage, Tylenol, Claritin, but these have only helped temporarily. also ill with similar symptoms Past medical history, appointments, medications, allergies reviewed. Previous Medical History PAST MEDICAL HISTORY Diagnosis Date Anxiety Chronic rhinitis deviated septum Diabetes mellitus type II, uncontrolled Esophageal reflux Moderate cervical dysplasia Other abnormal glucose Other and unspecified hyperlipidemia PMH - PAST MEDICAL HISTORY OF adopted Previous Surgical History PAST SURGICAL HISTORY Procedure Laterality Date CHOLECYSTECTOMY Cholecystectomy COLONOSCOPY FLX DX W/COLLJ SPEC WHEN PFRMD 11/30/98 Per repeat in EGD 11/30/98 Colonoscopy done at same time VAGINAL HYSTERECTOMY UTERUS 250 GM/< 1975 due to precancerous cells - not cancer Family History FAMILY HISTORY Adopted: Yes Patient Allergies ALLERGIES Allergen Reactions Benadryl [Diphenhyd* Caffeine Mental Status Change Compazine [Prochlor* Imipramine Mental Status Change Tcn [Tetracyclines] GI Upset Trulicity [Dulaglut* Mental Status Change Current Medications Current Outpatient Medications on File Prior to Visit Medication Sig Insulin Upatoi, Disposable, (BD ULTRA-FINE HEAVEN PEN NEEDLE) 32 gauge x 32 Use one needle for each dose. 1/day. LORazepam (ATIVAN) 1 mg tablet Take 1 tablet by mouth three times a day as needed for up to 90 days. sertraline (ZOLOFT) 25 mg tablet Take 1 tablet by mouth once daily. (Patient not taking: Reported on 10/13/2024) insulin glargine 100 unit/mL (3 mL) Inject 60 Units subcutaneously daily at bedtime. cholecalciferol, Vitamin D3, (VITAMIN D3) 1,250 mcg (50,000 unit) cap capsule Take 1 capsule by mouth one time a week. acetaminophen (TYLENOL EXTRA STRENGTH) 500 mg tablet Take 2 tablets by mouth once daily. clobetasol (TEMOVATE) 0.05 % cream Apply to affected area two times a day. No current facility-administered medications on file prior to visit. Social History Social History Tobacco Use Smoking status: Never Smokeless tobacco: Never Vaping Use Vaping status: Never Used Substance Use Topics Alcohol use: Yes Comment: Selom Drug use: No EXAM: BP 160/90 Pulse 98 Temp 37.2 ?C (99 ?F) (Tympanic) Resp 18 Wt 93.5 kg (206 lb 2.1 oz) BMI 36.51 kg/m? General Appearance: Well appearing, alert, in no acute distress, well-hydrated, well nourished.. Ears: External ears normal, canals clear. Oropharynx: Lips, mucosa, and tongue normal, teeth and gums normal, oropharynx normal. Neck: Supple, no adenopathy Lungs: Lungs clear to auscultation. No wheezing, rhonchi, rales.. Heart: RRR without murmur, gallop, or rubs. No ectopy. Health Maintenance List BP Controlled (<130/80) Never done DTaP,Tdap,Td Vaccine(1 - Tdap) Never done Diabetic Foot Exam due on 01/30/2024 Dilated Retinal Exam due on 03/18/2024 Urine Albumin:Creatinine Ratio due on 11/18/2024 Mammogram Screening due on 04/11/2025 Influenza Vaccine(1) due on 02/13/2025 Pneumococcal Vaccine: 50+(1 of 2 - PCV) due on 03/08/2025 Covid-19 Vaccine( - season) due on 06/10/2025 RSV Vaccine(1 - Risk 60-74 years 1-dose series) due on 09/06/2025 Shingrix Vaccine(1 of 2) due on 09/06/2025 HbA1C due on 11/17/2024 LDL Cholesterol due on 08/19/2025 Annual PCP Team Chronic Disease Visit due on 09/06/2025 Colorectal Cancer Screening due on 01/02/2030 Bone Density Screening Completed Advance Directive Discussion Completed Hepatitis C Screening Completed Data reviewed none ASSESSMENT/PLAN: 1. Pharyngitis, unspecified etiology - ICD9: 462, ICD10: J02.9 (primary diagnosis) - Rapid Strep negative in the office today - STREP A MOLECULAR (POC) - AZITHROMYCIN 250 MG TABLET 2. Bacterial sinusitis - ICD9: 473.9, 041.9, ICD10: J32.9, B96.89 - Will begin treatment with Zithromax pack as directed; 1 refill give if needed - AZITHROMYCIN 250 MG TABLET Follow up prn I agree with the Chief Complaint, ROS, (more content not included)... [facility] STREP A MOLECULAR (POC)on Procedural Control Valid [facility] Strep A (POCT) Negative Negative [facility] CNOVon 10-26-2024 CNOV Office Visit (UCWSTR ) MAYA BLANCHARD ([id number]) 1950 F Date Time Provider Department 10/26/24 9:30 AM NATACHA JACKSON [facility] During your visit today, we recorded the following information about you: Temperature Pulse Respiration Blood pressure 98.1 degrees 94/minute 16/minute 124/80 Weight 95.4 kg Natacha Jackson APRN.TELEPHONE REPAIRER 10/26/2024 10:27 AM Signed CC: Patient presents with: Sore Throat: headache, nasal congestion, drainage, cough x 1 week HPI Maya Blanchard is a 74 year old female who presents with productive cough-yellow phlegm, nasal congestion-clear, sore throat, headaches and ear fullness. Symptoms started about one week ago. She has tried Coricidin HB, Tylenol and Ibuprofen. These remedies have helped. She denies N/V/D, fever, chills, SOB or chest tightness. She had pneumonia in May 2024. She reports resolution confirmed with CXR 08/21/2024. She will be seeing her grandchildren tomorrow and is mostly concerned about strep throat. She is a non-smoker and UTD on influenza, pneumonia and covid vaccines. Review of Systems Constitutional: Positive for fatigue. Negative for chills and fever. HENT: Positive for congestion, ear pain, rhinorrhea, sneezing and sore throat. Negative for sinus pressure, sinus pain and trouble swallowing. Eyes: Positive for discharge (watery). Negative for photophobia, pain, redness and itching. Respiratory: Positive for cough and wheezing. Negative for chest tightness and shortness of breath. Cardiovascular: Negative for chest pain and palpitations. Gastrointestinal: Negative for abdominal pain, diarrhea, nausea and vomiting. Musculoskeletal: Negative for arthralgias and myalgias. Skin: Negative for rash. Neurological: Positive for headaches. Negative for dizziness and numbness. PAST MEDICAL HISTORY Diagnosis Date Anxiety Chronic rhinitis deviated septum Diabetes mellitus type II, uncontrolled Esophageal reflux Moderate cervical dysplasia Other abnormal glucose Other and unspecified hyperlipidemia PMH - PAST MEDICAL HISTORY OF adopted PAST SURGICAL HISTORY Procedure Laterality Date CHOLECYSTECTOMY Cholecystectomy COLONOSCOPY FLX DX W/COLLJ SPEC WHEN PFRMD 11/30/98 Per repeat in EGD 11/30/98 Colonoscopy done at same time VAGINAL HYSTERECTOMY UTERUS 250 GM/< 1975 due to precancerous cells - not cancer ALLERGIES Benadryl [Diphenhydramine Hcl], Caffeine, Compazine [Prochlorperazine Edisylate], Imipramine, Tcn [Tetracyclines], and Trulicity [Dulaglutide] MEDICATIONS Insulin Upatoi, Disposable, (BD ULTRA-FINE HEAVEN PEN NEEDLE) 32 gauge x Use one needle for each dose. 1/day. LORazepam (ATIVAN) 1 mg tablet Take 1 tablet by mouth three times a day as needed for up to 90 days. sertraline (ZOLOFT) 25 mg tablet Take 1 tablet by mouth once daily. (Patient not taking: Reported on 10/13/2024) insulin glargine 100 unit/mL (3 mL) Inject 60 Units subcutaneously daily at bedtime. cholecalciferol, Vitamin D3, (VITAMIN D3) 1,250 mcg (50,000 unit) cap capsule Take 1 capsule by mouth one time a week. acetaminophen (TYLENOL EXTRA STRENGTH) 500 mg tablet Take 2 tablets by mouth once daily. clobetasol (TEMOVATE) 0.05 % cream Apply to affected area two times a day. FAMILY HISTORY Adopted: Yes Social History Tobacco Use Smoking status: Never Smokeless tobacco: Never Vaping Use Vaping status: Never Used Substance Use Topics Alcohol use: Yes Comment: Selom Drug use: No BP 124/80 Pulse 94 Temp 36.7 ?C (98.1 ?F) Resp 16 Wt 95.4 kg (210 lb 5.1 oz) SpO2 93% BMI 37.26 kg/m? Physical Exam Constitutional: Appearance: Normal appearance. HENT: Head: Jaw: No trismus or tenderness. Right Ear: Tympanic membrane and ear canal normal. No tenderness. Left Ear: Tympanic membrane and ear canal normal. No tenderness. Nose: Rhinorrhea present. Rhinorrhea is clear. Right Turbinates: Not swollen. Left Turbinates: Not swollen. Right Sinus: No maxillary sinus tenderness or frontal sinus tenderness. Left Sinus: No maxillary sinus tenderness or frontal sinus tenderness. Mouth/Throat: Lips: [place]. Mouth: Mucous membranes are moist. No oral lesions. Dentition: Normal dentition. Tongue: No lesions. Pharynx: Oropharynx is clear. Uvula midline. Posterior oropharyngeal erythema and postnasal drip present. No oropharyngeal exudate. Eyes: General: Lids are normal. No allergic shiner. Conjunctiva/sclera: Conjunctivae normal. Neck: Thyroid: No thyroid mass or thyroid tenderness. Cardiovascular: Rate and Rhythm: Normal rate and regular rhythm. Heart sounds: S1 normal and S2 normal. Murmur heard. Pulmonary: Effort: No tachypnea. Breath sounds: Normal breath sounds. No decreased breath sounds or wheezing. Abdominal: General: Bowel sounds are normal. Palpations: Abdomen is soft. Tenderness: T (more content not included)... [facility] STREP A MOLECULAR (POC)on Procedural Control Valid [facility] Strep A (POCT) Negative Negative [facility] CNOVon 10-13-2024 CNOV Office Visit (PHMEWO ) MAYA BLANCHARD ([id number]) 1950 F Date Time Provider Department 10/13/24 1:00 PM DARCY PALMA [facility] During your visit today, we recorded the following information about you: Darcy Palma RPh 10/13/2024 1:22 PM Signed Primary Care Pharmacy Visit CC (Reason for Consult): (E11.65) Uncontrolled type 2 diabetes mellitus with hyperglycemia (HCC) (primary encounter diagnosis) Goal(s): A1c <8% Last Collaborating Provider Visit: 09/06/[address] Anabel Trejo Lo is a 74 year old female presenting for follow up visit in person. Patient consents to pharmacy collaborative practice agreement. Last Pharmacy Visit: 06/30/24 Interim Events: - 08/19/24 A1c results - improvement from 8.4% to 8.2% HPI: Here with , Kali Reports doing well overall Requesting to follow up on as needed basis since BGs have been stable, and slowly improving Discussed beginning to monitor BGs later in the day a few times/week to assess for uncontrolled readings at other times a day; patient agreeable States BGs have still been improving, sometimes depends on stress levels States she was recently prescribed sertraline by PCP; however, was unable to tolerate this so no longer taking Current DM Medications: Insulin glargine (Lantus) 60 units once daily Previously Trialed DM Meds: Trulicity - GI upset Jardiance - unable to tolerate Glimepiride Metformin IR/ER- GI intolerance Diet Denies any recent changes GLYCEMIC CONTROL: Glucometer present at visit: BG log present Hypoglycemia: No Of note, in the month of August, had several more readings of in the 200s compared to this month SMBGS (Fingersticks) Date Fasting AM 10/13 167 10/12 189 10/11 164 10/10 167 10/09 212 10/08 174 10/07 186 10/06 153 10/05 196 10/04 192 10/03 170 10/02 146 10/01 166 09/30 170 09/29 175 09/28 165 09/27 177 09/26 149 2 129 28 136 2 113 AVG 166 Past medical history reviewed. ALLERGIES Allergen Reactions Benadryl [Diphenhyd* Caffeine Mental Status Change Compazine [Prochlor* Imipramine Mental Status Change Tcn [Tetracyclines] GI Upset Trulicity [Dulaglut* Mental Status Change Current Outpatient Medications Medication Sig Dispense Refill Insulin Upatoi, Disposable, (BD ULTRA-FINE HEAVEN PEN NEEDLE) 32 gauge x /32 Use one needle for each dose. 1/day. 30 Each 11 LORazepam (ATIVAN) 1 mg tablet Take 1 tablet by mouth three times a day as needed for up to 90 days. 90 tablet 2 sertraline (ZOLOFT) 25 mg tablet Take 1 tablet by mouth once daily. 30 tablet 5 insulin glargine 100 unit/mL (3 mL) Inject 60 Units subcutaneously daily at bedtime. 15 mL 11 cholecalciferol, Vitamin D3, (VITAMIN D3) 1,250 mcg (50,000 unit) cap capsule Take 1 capsule by mouth one time a week. 12 capsule 3 acetaminophen (TYLENOL EXTRA STRENGTH) 500 mg tablet Take 2 tablets by mouth once daily. clobetasol (TEMOVATE) 0.05 % cream Apply to affected area two times a day. 15 g 2 No current facility-administered medications for this visit. Pill bottles are not present. Adherence: denies missed doses. Rx coverage: Payor: [employer] MEDICARE / Plan: [employer] MEDICARE PPO / Product Type: PPO / Medications affordable? Yes EXAM: There were no vitals taken for this visit. Last 3 Encounter BP Readings: Date: BP: 09/06/2024 146/82 08/18/2024 140/90 06/10/2024 160/88[rechecked at end of visit[ Wt: 95.3 kg (210 lb 1.6 oz) BMI: 37.22 kg/(m2) LABS: Lab Results Component Value Date HBA1C 8.2 08/19/2024 HBA1C 8.4 05/17/2024 HBA1C 8.3 02/16/2024 HBA1C 12.0 03/18/2021 HBA1C 11.7 11/22/2020 HBA1C 11.2 08/14/2020 Glucose 151 08/19/2024 BUN 12 08/19/2024 Creatinine 0.61 08/19/2024 Sodium 140 08/19/2024 Potassium 4.3 08/19/2024 Chloride 102 08/19/2024 CO2 28 08/19/2024 Protein, Total 7.7 08/19/2024 Albumin 4.0 08/19/2024 Calcium 9.1 08/19/2024 Alkaline Phosphatase 84 08/19/2024 Bilirubin, Total 0.6 08/19/2024 AST 20 08/19/2024 ALT 17 08/19/2024 Lab Results Component Value Date CHOL 225 08/19/2024 CHOL 225 03/18/2021 LDL 143 08/19/2024 LDL 153 03/18/2021 HDL 51 08/19/2024 HDL 44 03/18/2021 TG 153 08/19/2024 TG 138 03/18/2021 Albumin/Creat Ratio (mg/g) Date Value 11/19/2023 98 (H) eGFR-All Other Races (.) Date Value 03/18/2021 >60 Estimated Glomerular Filtration Rate (mL/min/1.73m?) Date Value 08/19/2024 95 ASSESSMENT/PLAN: 1. Uncontrolled type 2 diabetes mellitus with hyperglycemia (HCC) - ICD9: 250.02, ICD10: E11.65 - Improving control - Continue current medications - Blood glucose monitoring on a twice daily schedule. Advised patient to begin checking BGs before dinner or at bedtime 2-3x/week in addition to daily fasting readings. Advised patient to contact PharmD with any changes with BG control/higher readings than recently - Counseled o (more content not included)... [facility] Walter 09-12-2024 NICKN Telephone (FAMPWS) MAYA BLANCHARD ([id number]) 1950 F Date Time Provider Department 09/12/24 JANET LITTLE During your visit today, we recorded the following information about you: Nani Garibay LPN 09/12/2024 8:20 AM Signed Pt wanted you to know she is going off the Zoloft due to the following side effects. Pt having nausea, almost vomiting, no appetite, diarrhea, tired, fever, shaking,change in sleep, anxiety, restlessness and dizziness. Pt does not want anything called in to replace. Pt reports she will talk to you at her next apt. Pt declined to have her next apt moved up. EILEEN Ramires Mark D, MD 09/12/2024 1:45 PM Signed Noted Janet Little MD Allergies As of Date: 09/12/2024 Noted Allergy Reaction BENADRYL (DIPHENHYDRAMINE HCL) 07/17/2005 CAFFEINE 08/14/2005 1 - Mental Status Change COMPAZINE (PROCHLORPERAZINE EDISY*07/17/2005 IMIPRAMINE 08/14/2005 1 - Mental Status Change TCN (TETRACYCLINES) 08/14/2005 8 - GI Upset TRULICITY (DULAGLUTIDE) 10/21/2022 1 - Mental Status Change Date Reviewed: 09/06/2024 Reviewed by: Krysta Oliva MA - Fully Assessed Reason for Visit: Medication Problem [65] Prescriptions as of 09/12/2024 - sertraline (ZOLOFT) 25 mg tablet Take 1 tablet by mouth once daily. - LORazepam (ATIVAN) 1 mg tablet Take 1 mg by mouth three times a day as needed. - insulin glargine 100 unit/mL (3 mL) Inject 60 Units subcutaneously daily at bedtime. - cholecalciferol, Vitamin D3, (VITAMIN D3) 1,250 mcg (50,000 unit) cap capsule Take 1 capsule by mouth one time a week. - acetaminophen (TYLENOL EXTRA STRENGTH) 500 mg tablet Take 2 tablets by mouth once daily. - clobetasol (TEMOVATE) 0.05 % cream Apply to affected area two times a day. - Insulin Upatoi, Disposable, (BD ULTRA-FINE HEAVEN PEN NEEDLE) 32 gauge x Use one needle for each dose. 1/day. Problem List As Of Date 09/12/2024 Noted Resolved ESOPHAGEAL REFLUX [K21.9] CHRONIC RHINITIS [J31.0] 09/12/2005 DYSMETABOLIC SYNDROME X [E88.810] 09/12/2005 09/02/2007 Mixed hyperlipidemia [E78.2] Other abnormal glucose [R73.09] 08/28/2016 ABNORMAL PAP SMEAR OF CERVIX NEC AND HPV [R89.6]09/02/2007 Essential hypertension, benign [I10] 09/02/2007 06/30/2012 Nonspecific abnormal results of thyroid functio*10/05/2007 08/28/2016 Elevated BP [VPL5610] 06/30/2012 08/28/2016 Type 2 diabetes mellitus with hyperglycemia (HC*05/26/2023 Anxiety and depression [F41.9, F32.A] 08/28/2016 Essential hypertension [I10] 08/28/2016 History of stroke [Z86.73] 12/02/2021 Non-compliance [Z91.199] 12/03/2021 Type 2 diabetes mellitus with diabetic neuropat*10/21/2022 Type 2 diabetes mellitus with peripheral vascul*12/02/2021 Current use of insulin (HCC) [Z79.4] 05/26/2023 Major depressive disorder, recurrent, mild (HCC*08/28/2023 Class 2 severe obesity with serious comorbidity*08/28/2023 Encounter Status:Closed by JANET LITTLE on 09/12/24 [facility] CNOVon 09-06-2024 CNOV Office Visit (FAMPWS ) MAYA BLANCHARD ([id number]) 1950 F Date Time Provider Department 09/06/24 10:40 AM JANET LITTLE During your visit today, we recorded the following information about you: Pulse Respiration Blood pressure Weight 78/minute 18/minute 146/82 95.3 kg Janet Little MD 09/06/2024 11:36 AM Signed Chief Complaint Patient presents with: F/U 3 Month HPI Maya Blanchard is a 74 year old female who presents here today for 3 month follow up. Pt here today for a 3 month follow up. Here today with her spouse. No bowel, Gi, or urinary concerns. Wears pad due to urinary incontinence. HTN: No taking any medications. Denies checking BP at home. No chest pains or sob. Reports dizziness. DM: Working with Pharmacist. Checking BS once daily with FBS for August running from 150-220. She is taking Lantus 60 units daily. Denies any hypoglycemic episodes. Admits to some neuropathy in feet, possibly thumbs but unsure. Follows with Ophthalmology, Dr. Saavedra every 6 months for routine eye exams. JACLYN/Depression: Chronic. Is doing Counseling and taking Ativan 1 mg taking twice daily. Has previously been on Celexa and Buspar. Notes some stressors with her 4 year old granddaughter who's Type 1 DM. Pt is anxious today, reports that she was doing fine this morning, but became nervous and started experiencing symptoms due to this appt and what she needed to discuss. Wants to discuss Ativan medication and care home medication use and potential side effects. After reviewing chart pt was on Celexa in 2017, but was in the Hospital due to CVA and was d/c on Ativan. Pt d/c Celexa due to Ativan working more efficiently for her. Pt was previously on 0.5 mg, but has increased her dosage from 0.5 mg prn to daily up to 1 mg daily, bid to tid over the years due to increased anxiety. Notes she's tried to go off Ativan herself cold turkey but was unable too. Pt reports concern about delusions, sleeping and not getting a deep sleep even with use of medication, and memory loss concerns with care home use of medication. Offered Zoloft to pt, reports that she didn't like what it did to her or what occurred when she came off it, but this occurred a long time ago. States she quit this cold turkey. Lipid/CVA: Hx of TIA, not taking any medications. Rides stationary bike for exercise, was doing PT for her knee's and trying to keep up with those exercises. Trying to watch her diet. Notes an episode where she did not recognize her and her granddaughter. Unsure if this was related to an episode of stress as she was having a very stressful day that specific day. Vit D - Vit D deficient, taking Vit D3 50,000 international unit(s) once weekly. Pain: b/l legs; has been following with Ortho Dr. Rodas, been getting injections, doing stretches, taking Tylenol prn and at bedtime Notes an episode that occurred this morning. Woke up and was fine and peaceful this morning. Then started having pain in her epigastric area, then starting having a headache, then experienced a BM. Feels numbness/tingling in her lips. Feels this is anxiety related episode. - Has Adv Dir/Living Will. Scheduled for Eye Exam next month. Declines RSV and Shingles vaccine. Past medical history, appointments, medications, allergies reviewed. Previous Medical History PAST MEDICAL HISTORY Diagnosis Date Anxiety Chronic rhinitis deviated septum Diabetes mellitus type II, uncontrolled Esophageal reflux Moderate cervical dysplasia Other abnormal glucose Other and unspecified hyperlipidemia PMH - PAST MEDICAL HISTORY OF adopted Previous Surgical History PAST SURGICAL HISTORY Procedure Laterality Date CHOLECYSTECTOMY Cholecystectomy COLONOSCOPY FLX DX W/COLLJ SPEC WHEN PFRMD 11/30/98 Per repeat in EGD 11/30/98 Colonoscopy done at same time VAGINAL HYSTERECTOMY UTERUS 250 GM/< 1975 due to precancerous cells - not cancer Family History FAMILY HISTORY Adopted: Yes Patient Allergies ALLERGIES Allergen Reactions Benadryl [Diphenhyd* Caffeine Mental Status Change Compazine [Prochlor* Imipramine Mental Status Change Tcn [Tetracyclines] GI Upset Trulicity [Dulaglut* Mental Status Change Current Medications Current Outpatient Medications on File Prior to Visit Medication Sig azithromycin (ZITHROMAX Z-ALVIN) 250 mg tablet Take 2 tablets day one, then, 1 tablet daily until gone. LORazepam (ATIVAN) 1 mg tablet Take 1 mg by mouth three times a day as needed. insulin glargine 100 unit/mL (3 mL) Inject 60 Units subcutaneously daily at bedtime. albuterol HFA (PROVENTIL HFA, VENTOLIN HFA) 90 mcg/actuation inhaler Inhale 2 Puffs as instructed every 4 hours as needed for wheezing/shortness of breath. (Patient not taking: Reported on 08/18/2024) fluconazole (DIFLUCAN) 150 mg tablet Take 1 tab (more content not included)... [facility] CNPNon 08-22-2024 CNPN Telephone (FAMPWS) MAYA BLANCHARD ([id number]) 1950 F Date Time Provider Department 08/22/[facility] During your visit today, we recorded the following information about you: Axel Chavez RN 08/22/2024 8:48 AM Signed Patient calls to request refill of Z-alvin. Patient seen in on 08/18/2024 for acute cough and rhinosinusitis. Current Z-alvin end date 08/23/2024. Patient reports symptoms are improving slightly but continues to have thick green mucus. Recommended scheduling a follow up appointment for re-evaluation. Patient declines as she is seeing Dr. Little on 09/06/2024. LUBA Medel Mark D, MD 08/22/2024 12:53 PM Signed OK to refill as ordered MD Rosalva Harkins Krystle, RN 08/22/2024 12:56 PM Signed Call placed to patient and notified of below. Axel Chavez RN Allergies As of Date: 08/22/2024 Noted Allergy Reaction BENADRYL (DIPHENHYDRAMINE HCL) 07/17/2005 CAFFEINE 08/14/2005 1 - Mental Status Change COMPAZINE (PROCHLORPERAZINE EDISY*07/17/2005 IMIPRAMINE 08/14/2005 1 - Mental Status Change TCN (TETRACYCLINES) 08/14/2005 8 - GI Upset TRULICITY (DULAGLUTIDE) 10/21/2022 1 - Mental Status Change Date Reviewed: 08/18/2024 Reviewed by: Karissa Matrinez MA - Fully Assessed Reason for Visit: Refill Request [94] Order(s):azithromycin (ZITHROMAX Z-ALVIN) 250 mg tabletTake 2 tablets day one, then, 1 tablet daily until gone.Disp: 6 tabletRfl: 0 Prescriptions as of 08/22/2024 - azithromycin (ZITHROMAX Z-ALVIN) 250 mg tablet Take 2 tablets day one, then, 1 tablet daily until gone. - LORazepam (ATIVAN) 1 mg tablet Take 1 mg by mouth three times a day as needed. - insulin glargine 100 unit/mL (3 mL) Inject 60 Units subcutaneously daily at bedtime. - albuterol HFA (PROVENTIL HFA, VENTOLIN HFA) 90 mcg/actuation inhaler Inhale 2 Puffs as instructed every 4 hours as needed for wheezing/shortness of breath. - fluconazole (DIFLUCAN) 150 mg tablet Take 1 tablet by mouth once daily. Repeat in 3 days as needed. - cholecalciferol, Vitamin D3, (VITAMIN D3) 1,250 mcg (50,000 unit) cap capsule Take 1 capsule by mouth one time a week. - acetaminophen (TYLENOL EXTRA STRENGTH) 500 mg tablet Take 2 tablets by mouth once daily. - clobetasol (TEMOVATE) 0.05 % cream Apply to affected area two times a day. - Insulin Upatoi, Disposable, (BD ULTRA-FINE HEAVEN PEN NEEDLE) 32 gauge x Use one needle for each dose. 1/day. Problem List As Of Date 08/22/2024 Noted Resolved ESOPHAGEAL REFLUX [K21.9] CHRONIC RHINITIS [J31.0] 09/12/2005 DYSMETABOLIC SYNDROME X [E88.810] 09/12/2005 09/02/2007 Mixed hyperlipidemia [E78.2] Other abnormal glucose [R73.09] 08/28/2016 ABNORMAL PAP SMEAR OF CERVIX NEC AND HPV [R89.6]09/02/2007 Essential hypertension, benign [I10] 09/02/2007 06/30/2012 Nonspecific abnormal results of thyroid functio*10/05/2007 08/28/2016 Elevated BP [WIT6182] 06/30/2012 08/28/2016 Type 2 diabetes mellitus with hyperglycemia (HC*05/26/2023 Anxiety and depression [F41.9, F32.A] 08/28/2016 Essential hypertension [I10] 08/28/2016 History of stroke [Z86.73] 12/02/2021 Non-compliance [Z91.199] 12/03/2021 Type 2 diabetes mellitus with diabetic neuropat*10/21/2022 Type 2 diabetes mellitus with peripheral vascul*12/02/2021 Current use of insulin (HCC) [Z79.4] 05/26/2023 Major depressive disorder, recurrent, mild (HCC*08/28/2023 Severe obesity (BMI 35.0-39.9) with comorbidity*08/28/2023 12/03/2023 Prescriptions ordered this encounter Disp Refills Start End AZITHROMYCIN 250 MG TABLET 6 ta* 0 08/22/2024 08/27/2024 Sig: Take 2 tablets day one, then, 1 tablet daily until gone. Medications Discontinued During This Encounter Prescriptions - azithromycin (ZITHROMAX Z-ALVIN) 250 mg tablet (Discontinued) Take 2 tablets day one, then, 1 tablet daily until gone. Encounter Status:Closed by AXEL CHAVEZ on 08/22/24 [facility] 25(OH)D3 SerPl-mCncon 2024 25-hydroxyvitamin D3 [Mass/Vol] 45.4 ng/mL Normal 31.0-80.0 [facility] Comment on above: Order Comment: Carlos martin Type: BLOOD SPECIMENOrdering Facility: [facility] Address: [address] [place] [address] Result Comment: Clas sification of 25 OH Vitamin D status: Deficiency/Insufficiency: < or = 30 ng/ml. Sufficiency/Optimal Levels: 31-80 ng/mL Toxicity: > 100 ng/mL. Test performed by chemiluminescent immunoassay. Performed By: #### 1 989-3 ####[facility] LABCLIA [id number] [place] [address] [place] Comprehensive metabolic 2000 panelon 08-19-2024 Albumin [Mass/Vol] 4.0 g/dL Normal 3.9-4.9 [facility] Comment on above: Order Comment: Carlos martin Type: BLOOD SPECIMENOrdering Facility: [facility] Address: [address] [id number] Performed By: #### 2 4323-8, 33978-6 ####[facility] LABCLIA [id number] [place] [address] [place] ALP [Catalytic activity/Vol] 84 U/L Normal 34-123 [facility] Comment on above: Order Comment: Speci men Type: BLOOD SPECIMENOrdering Facility: [facility] Address: [address] [place] [address] Performed By: #### 2 4323-8, 46702-5 ####[facility] LABCLIA [id number] [place] [address] [place] ALT [Catalytic activity/Vol] 17 U/L Normal 7-38 [facility] Comment on above: Order Comment: Speci men Type: BLOOD SPECIMENOrdering Facility: [facility] Address: [address] [place] [address] Performed By: #### 2 4323-8, 79425-6 ####[facility] LABCLIA [id number] [place] [address] [place] Anion gap [Moles/Vol] 10 mmol/L Normal 8-15 [facility] Comment on above: Order Comment: Speci men Type: BLOOD SPECIMENOrdering Facility: [facility] Address: [address] [place] [address] Performed By: #### 2 4323-8, 45273-9 ####[facility] LABCLIA [id number] [place] [address] [place] AST [Catalytic activity/Vol] 20 U/L Normal 13-35 [facility] Comment on above: Order Comment: Speci men Type: BLOOD SPECIMENOrdering Facility: [facility] Address: [address] [place] [address] Performed By: #### 2 4323-8, 79401-2 ####[facility] LABCLIA [id number] [place] [address] [place] Bilirubin [Mass/Vol] 0.6 mg/dL Normal 0.2-1.3 [facility] Comment on above: Order Comment: Speci men Type: BLOOD SPECIMENOrdering Facility: [facility] Address: [address] [place] [address] Performed By: #### 2 4323-8, 37514-8 ####[facility] LABCLIA [id number] [place] [address] [place] Calcium [Mass/Vol] 9.1 mg/dL Normal 8.5-10.2 [facility] Comment on above: Order Comment: Speci men Type: BLOOD SPECIMENOrdering Facility: [facility] Address: [address] [place] [address] Performed By: #### 2 4323-8, 27530-3 ####[facility] LABCLIA [id number] [place] [address] [place] Chloride [Moles/Vol] 102 mmol/L Normal 98-107 [facility] Comment on above: Order Comment: Speci men Type: BLOOD SPECIMENOrdering Facility: [facility] Address: [address] [place] [address] Performed By: #### 2 4323-8, 35365-3 ####[facility] LABCLIA [id number] [place] [address] [place] CO2 [Moles/Vol] 28 mmol/L Normal 22-30 [facility] Comment on above: Order Comment: Speci men Type: BLOOD SPECIMENOrdering Facility: [facility] Address: [address] [place] [address] Performed By: #### 2 4323-8, 37218-8 ####[facility] LABCLIA [id number] [place] [id number] [place] Creatinine [Mass/Vol] 0.61 mg/dL Normal 0.58-0.96 [facility] Comment on above: Order Comment: Carlos martin Type: BLOOD SPECIMENOrdering Facility: [facility] Address: [address] [place] [address] Performed By: #### 2 4323-8, 39055-2 ####[facility] LABCLIA [id number] [place] [address] [place] Creatinine and Glomerular filtration rate.predicted panel (S/P/Bld) 95 mL/min/1.73m??? Normal >=60 [facility] Comment on above: Order Comment: Carlos martin Type: BLOOD SPECIMENOrdering Facility: [facility] Address: [address] [place] [address] Result Comment: Irina mated Glomerular Filtration Rate (eGFR) is calculated using the 2020 CKD-EPI creatinine equation. This equation utilizes serum creatinine, sex, and age as parameters. The creatinine assay has traceable calibration to isotope dilution-mass spectrometry. Refer to KDIGO guidelines for clinical interpretation. In patients with unstable renal function, e.g. those with acute kidney injury, the eGFR may not accurately reflect actual GFR. Performed By: #### 2 4323-8, 37270-8 ####[facility] LABCLIA [id number] [place] [address] [place] Glucose [Mass/Vol] 151 mg/dL High 74-99 [facility] Comment on above: Order Comment: Carlos martin Type: BLOOD SPECIMENOrdering Facility: [facility] Address: [address] [place] [address] Result Comment: The [place] Diabetes Association (ADA) provides guidance for cutoff values for fasting glucose and random glucose. The ADA defines fasting as no caloric intake for at least 8 hours. Fasting plasma glucose results between 100 to 125 mg/dL indicate increased risk for diabetes (prediabetes). Fasting plasma glucose results greater than or equal to 126 mg/dL meet the criteria for diagnosis of diabetes. In the absence of unequivocal hyperglycemia, results should be confirmed by repeat testing. In a patient with classic symptoms of hyperglycemia or hyperglycemic crisis, random plasma glucose results greater than or equal to 200 mg/dL meet the criteria for diagnosis of diabetes. Reference: Standards of Medical Care in Diabetes 2016, [place] Diabetes Association. Diabetes Care. 2016.39(Suppl 1). Performed By: #### 2 4323-8, 34700-8 ####[facility] LABCLIA [id number] [address] [address] [place] Potassium [Moles/Vol] 4.3 mmol/L Normal 3.7-5.1 [facility] Comment on above: Order Comment: Speci men Type: BLOOD SPECIMENOrdering Facility: [facility] Address: [address] [place] [address] Performed By: #### 2 4323-8, 12684-3 ####[facility] LABCLIA [id number] [place] [address] [place] Protein [Mass/Vol] 7.7 g/dL Normal 6.3-8.0 [facility] Comment on above: Order Comment: Speci men Type: BLOOD SPECIMENOrdering Facility: [facility] Address: [address] [place] [address] Performed By: #### 2 4323-8, ####[facility] LABIA [id number] [place] [address] [place] Sodium [Moles/Vol] 140 mmol/L Normal 136-144 [facility] Comment on above: Order Comment: Speci men Type: BLOOD SPECIMENOrdering Facility: [facility] Address: [address] [id number] Performed By: #### 2 4323-8, 19694-1 ####[facility] LABCLIA [id number] [place] [id number] [place] Urea nitrogen [Mass/Vol] 12 mg/dL Normal 7-21 [facility] Comment on above: Order Comment: Speci men Type: BLOOD SPECIMENOrdering Facility: [facility] Address: [address] [id number] Performed By: #### 2 4323-8, 89447-5 ####[facility] LABCLIA [id number] [address] [place] HbA1c (Bld)on 08-19-2024 Average glucose Estimated from glycated hemoglobin (Bld) [Mass/Vol] 189 mg/dL Normal [facility] Comment on above: Order Comment: Speci men Type: BLOOD SPECIMENOrdering Facility: [facility] Address: [address] [place] [address] Result Comment: eAG: (Estimated average glucose) is a calculated value from HgbA1c and is wholesale representative of the average blood glucose level in the last 2-3 month period. Performed By: #### 5 5454-3 ####[facility] LABIA [id number] [address] STATES [facility] HbA1c (Bld) [Mass fraction] 8.2 % High 4.3-5.6 [facility] Comment on above: Order Comment: Carlos martin Type: BLOOD SPECIMENOrdering Facility: [facility] Address: [address] [place] [address] Result Comment: [place] Diabetes Association guidelines indicate that patients with HgbA1c in the range 5.7-6.4% are at increased risk for development of diabetes, and intervention by lifestyle modification may be beneficial. HgbA1c greater or equal to 6.5% is considered diagnostic of diabetes. Performed By: #### 5 5454-3 ####[facility] LABCLIA [id number] [place] [address] [place] [facility] [place] Lipid 1996 panelon 5 Cholesterol [Mass/Vol] 225 mg/dL High <200 [facility] Comment on above: Order Comment: Carlos martin Type: BLOOD SPECIMENOrdering Facility: [facility] Address: [address] [place] [address] Result Comment: <200 mg/dL, Desirable 200-239 mg/dL, Borderline high >239 mg/dL, High Performed By: #### 2 4323-8, 14248-4 ####[facility] LABCLIA [id number] [address] OF [facility] Cholesterol in HDL [Mass/Vol] 51 mg/dL Normal >39 [facility] Comment on above: Order Comment: Carlos martin Type: BLOOD SPECIMENOrdering Facility: [facility] Address: [address] [place] [address] Result Comment: 40-5 9 mg/dL, Acceptable >59 mg/dL, High: Negative risk factor for coronary heart disease <40 mg/dL, Low: Positive risk factor for coronary heart disease Performed By: #### 2 4323-8, 65444-6 ####[facility] LABIA [id number] [address] OF [facility] Cholesterol in LDL [Mass/Vol] 143 mg/dL High <100 [facility] Comment on above: Order Comment: Carlos martin Type: BLOOD SPECIMENOrdering Facility: [facility] Address: [address] [place] [address] Result Comment: <100 mg/dL, Optimal 100-129 mg/dL, Near optimal/above optimal 130-159 mg/dL, Borderline high 160-189 mg/dL, High >189 mg/dL, Very high Secondary prevention optimal LDL Cholesterol levels are recommended to be < 70 mg/dL Performed By: #### 2 4323-8, 82229-5 ####[facility] [id number] [address] OF [facility] Cholesterol in LDL/Cholesterol in HDL [Mass ratio] 2.80 {ratio} High <2.54 [facility] Comment on above: Order Comment: Carlos veronica Type: BLOOD SPECIMENOrdering Facility: [facility] Address: [address] [place] [address] Result Comment: Maureen medellin: 1. National Cholesterol Education Program ATP III Guideline At-A-Glance Quick Desk Reference: National Heart, Lung, and Blood [place]. National Institutes of Health. 2001: NIH Publication No. 01-3305. 2. An International Atherosclerosis Society position paper: global recommendations for the management of dyslipidemia: executive summary, Atherosclerosis. 2014: 232(2):410-413. Performed By: #### 2 4323-8, 77665-5 ####[facility] LABCLIA [id number] [place] [address] [place] Cholesterol in VLDL [Mass/Vol] 31 mg/dL High <30 [facility] Comment on above: Order Comment: Speci men Type: BLOOD SPECIMENOrdering Facility: [facility] Address: [address] [place] [address] Performed By: #### 2 4323-8, 57512-4 ####[facility] LABCLIA [id number] [place] [address] [place] Cholesterol non HDL [Mass/Vol] 174 mg/dL High <130 [facility] Comment on above: Order Comment: Speci men Type: BLOOD SPECIMENOrdering Facility: [facility] Address: [address] [place] [address] Result Comment: <130 mg/dL, Optimal 130-159 mg/dL, Near optimal/above optimal 160-189 mg/dL, Borderline high 190-219 mg/dL, High >219 mg/dL, Very high Secondary prevention optimal non HDL Cholesterol levels are recommended to be <100 mg/dL Performed By: #### 2 4323-8, 74862-5 ####[facility] LABCLIA [id number] [address] [address] [place] Cholesterol.total/Ch olesterol in HDL [Mass ratio] 4.41 {ratio} Normal <5.10 [facility] Comment on above: Order Comment: Speci men Type: BLOOD SPECIMENOrdering Facility: [facility] Address: [address] [id number] Performed By: #### 2 4323-8, ####[facility] LABCLIA [id number] [place] [id number] [place] FASTING TIME 12 hrs Normal [facility] Comment on above: Order Comment: Speci men Type: BLOOD SPECIMENOrdering Facility: [facility] Address: [address] [id number] Performed By: #### 2 4323-8, 24591-1 ####[facility] LABCLIA [id number] [place] [address] [place] Triglyceride [Mass/Vol] 153 mg/dL High <150 [facility] Comment on above: Order Comment: Speci men Type: BLOOD SPECIMENOrdering Facility: [facility] Address: [address] [place] [address] Result Comment: <150 mg/dL, Normal 150-199 mg/dL, Borderline high 200-499 mg/dL, High >499 mg/dL, Very high Performed By: #### 2 4323-8, 74479-0 ####[facility] LABCLIA [id number] [place] [address] [place] [place] CNOVon 08-18-2024 CNOV Office Visit (UCWSTR ) MAYA BLANCHARD ([id number]) 1950 F Date Time Provider Department 08/18/24 12:45 PM MAKEDA DENIS [facility] During your visit today, we recorded the following information about you: Temperature Pulse Respiration Blood pressure 98.4 degrees 96/minute 19/minute 140/90 Weight 95.6 kg Makeda Denis APRN.TELEPHONE REPAIRER 08/18/2024 1:50 PM Signed This note was created using ITDatabaseriter. Subjective Maya Blanchard is a 74 year old female. 74 year old female with PMH HTN, hyperlipidemia, DM, GERD presents for illness. Acute onset 2 weeks ago +sinus pressure +sinus pressure +cough +chest production +headache Denies dyspnea Denies abdominal pain Of note, she was diagnosed with pneumonia 05/26, treated with Z pack Was placed on Augmentin 06/06 at follow up Denies tobacco usage The history is provided by the patient. No varsity baseball coach was used. Sinus Problem This is a new problem. The current episode started 1 to 4 weeks ago. The problem occurs constantly. The problem has been unchanged. Associated symptoms include congestion, coughing and headaches. Pertinent negatives include no abdominal pain, anorexia, arthralgias, change in bowel habit, chest pain, chills, diaphoresis, fatigue, fever, joint swelling, myalgias, nausea, neck pain, numbness, rash, sore throat, swollen glands, urinary symptoms, vertigo, visual change, vomiting or weakness. Nothing aggravates the symptoms. She has tried nothing for the symptoms. The treatment provided no relief. PAST MEDICAL HISTORY Diagnosis Date Anxiety Chronic rhinitis deviated septum Diabetes mellitus type II, uncontrolled Esophageal reflux Moderate cervical dysplasia Other abnormal glucose Other and unspecified hyperlipidemia PMH - PAST MEDICAL HISTORY OF adopted PAST SURGICAL HISTORY Procedure Laterality Date CHOLECYSTECTOMY Cholecystectomy COLONOSCOPY FLX DX W/COLLJ SPEC WHEN PFRMD 11/30/98 Per repeat in EGD 11/30/98 Colonoscopy done at same time VAGINAL HYSTERECTOMY UTERUS 250 GM/< 1975 due to precancerous cells - not cancer ALLERGIES Benadryl [Diphenhydramine Hcl], Caffeine, Compazine [Prochlorperazine Edisylate], Imipramine, Tcn [Tetracyclines], and Trulicity [Dulaglutide] MEDICATIONS LORazepam (ATIVAN) 1 mg tablet Take 1 mg by mouth three times a day as needed. insulin glargine 100 unit/mL (3 mL) Inject 60 Units subcutaneously daily at bedtime. cholecalciferol, Vitamin D3, (VITAMIN D3) 1,250 mcg (50,000 unit) cap capsule Take 1 capsule by mouth one time a week. acetaminophen (TYLENOL EXTRA STRENGTH) 500 mg tablet Take 2 tablets by mouth once daily. clobetasol (TEMOVATE) 0.05 % cream Apply to affected area two times a day. Insulin Upatoi, Disposable, (BD ULTRA-FINE HEAVEN PEN NEEDLE) 32 gauge x Use one needle for each dose. 1/day. azithromycin (ZITHROMAX Z-ALVIN) 250 mg tablet Take 2 tablets day one, then, 1 tablet daily until gone. albuterol HFA (PROVENTIL HFA, VENTOLIN HFA) 90 mcg/actuation inhaler Inhale 2 Puffs as instructed every 4 hours as needed for wheezing/shortness of breath. (Patient not taking: Reported on 08/18/2024) fluconazole (DIFLUCAN) 150 mg tablet Take 1 tablet by mouth once daily. Repeat in 3 days as needed. (Patient not taking: Reported on 08/18/2024) FAMILY HISTORY Adopted: Yes Social History Tobacco Use Smoking status: Never Smokeless tobacco: Never Vaping Use Vaping status: Never Used Substance Use Topics Alcohol use: Yes Comment: Selom Drug use: No Review of Systems Constitutional: Negative for chills, diaphoresis, fatigue and fever. HENT: Positive for congestion, postnasal drip, rhinorrhea, sinus pressure and sinus pain. Negative for sore throat. Eyes: Negative for pain, discharge, redness and itching. Respiratory: Positive for cough. Negative for apnea, choking and chest tightness. Cardiovascular: Negative for chest pain. Gastrointestinal: Negative for abdominal pain, anorexia, change in bowel habit, nausea and vomiting. Musculoskeletal: Negative for arthralgias, joint swelling, myalgias and neck pain. Skin: Negative for rash. Allergic/Immunologic: Negative for environmental allergies, food allergies and immunocompromised state. Neurological: Positive for headaches. Negative for dizziness, vertigo, facial asymmetry, weakness and numbness. Hematological: Negative for adenopathy. Does not bruise/bleed easily. Psychiatric/Behavioral : Negative for agitation. Objective BP 140/90 Pulse 96 Temp 36.9 ?C (98.4 ?F) Resp 19 Wt 95.6 kg (210 lb 12.2 oz) SpO2 95% BMI 37.33 kg/m? Physical Exam Vitals and nursing note reviewed. Constitutional: General: She is not in acute distress. Appearance: Normal appearance. She is normal weight. She is not ill-appearing, toxic-appearing or diaphoretic. HENT: Head: Normocephali (more content not included)... Normal [facility] XR CHEST 2V FRONTAL/LATon XR CHEST 2V FRONTAL/LAT * * *Final Report* * * DATE OF EXAM: Aug 18 2024 1:18PM WOX [id number] - XR CHEST 2V FRONTAL/LAT / PROCEDURE REASON: Acute cough * * * * Physician Interpretation * * * * EXAMINATION: CHEST RADIOGRAPH (2 VIEW FRONTAL and LATERAL) CLINICAL HISTORY: Acute cough MQ: XC2_6 EXAM DATE/TIME: 08/18/2024 1:18 PM COMPARISON: 05/27/2024 RESULT: Lines, tubes, and devices: None. Lungs and pleura: No consolidation. No lung mass. No pleural effusion. No pneumothorax. Cardiomediastinal silhouette: Normal cardiomediastinal silhouette. Bones and soft tissues: Unremarkable. IMPRESSION: No acute radiographic abnormality. Resident Intern: PSCB Transcribe Date/Time: Aug 18 2024 1:19P Dictated by : RENETTA JJ MD This examination was interpreted and the report reviewed and electronically signed by: RENETTA JJ MD on Aug 18 2024 1:19PM EST [id number] Normal [facility] XR Chest PA and Lateralon IMPRESSION: No acute radiographic abnormality. Resident Intern: PSCB Transcribe Date/Time: Aug 18 2024 1:19P Dictated by : RENETTA JJ MD This examination was interpreted and the report reviewed and electronically signed by: RENETTA JJ MD on Aug 18 2024 1:19PM EST DIVISION OF RADIOLOGY * * *Final Report* * * DATE OF EXAM: Aug 18 2024 1:18PM WOX [id number] - XR CHEST 2V FRONTAL/LAT / PROCEDURE REASON: Acute cough * * * * Physician Interpretation * * * * EXAMINATION: CHEST RADIOGRAPH (2 VIEW FRONTAL & LATERAL) CLINICAL HISTORY: Acute cough MQ: XC2_6 EXAM DATE/TIME: 08/18/2024 1:18 PM COMPARISON: 05/27/2024 RESULT: Lines, tubes, and devices: None. Lungs and pleura: No consolidation. No lung mass. No pleural effusion. No pneumothorax. Cardiomediastinal silhouette: Normal cardiomediastinal silhouette. Bones and soft tissues: Unremarkable. DIVISION OF RADIOLOGY Provider, [facility] - 08/18/2024 * * *Final Report* * * DATE OF EXAM: Aug 18 2024 1:18PM WOX [id number] - XR CHEST 2V FRONTAL/LAT / PROCEDURE REASON: Acute cough * * * * Physician Interpretation * * * * EXAMINATION: CHEST RADIOGRAPH (2 VIEW FRONTAL & LATERAL) CLINICAL HISTORY: Acute cough MQ: XC2_6 EXAM DATE/TIME: 08/18/2024 1:18 PM COMPARISON: 05/27/2024 RESULT: Lines, tubes, and devices: None. Lungs and pleura: No consolidation. No lung mass. No pleural effusion. No pneumothorax. Cardiomediastinal silhouette: Normal cardiomediastinal silhouette. Bones and soft tissues: Unremarkable. IMPRESSION IMPRESSION: No acute radiographic abnormality. Resident Intern: PSCB Transcribe Date/Time: Aug 18 2024 1:19P Dictated by : RENETTA JJ MD This examination was interpreted and the report reviewed and electronically signed by: RENETTA JJ MD on Aug 18 2024 1:19PM EST [facility] Radiology Study observation (narrative) [facility] XR Chest PA and LateralOrder ed By: [facility] Provider on 08-18-2024 [facility] CNOVon 06-30-2024 CNOV Office Visit (PHMEWO ) LOMAYA ([id number]) 1950 F Date Time Provider Department 06/30/24 9:30 AM DARCY PALMA EMERITA During your visit today, we recorded the following information about you: Darcy Palma RPh 06/30/2024 9:54 AM Signed Primary Care Pharmacy Visit CC (Reason for Consult): (E11.65) Uncontrolled type 2 diabetes mellitus with hyperglycemia (HCC) (primary encounter diagnosis) Goal(s): A1c <8% Last Collaborating Provider Visit: 06/10/[address] Little - insulin glargine increased up to 60 units daily Maya Blanchard is a 74 year old female presenting for follow up visit in person. Patient consents to pharmacy collaborative practice agreement. Last Pharmacy Visit: 05/05/24 Interim Events: - 05/17/24 A1c results: slight worsening from 8.3% to 8.4% HPI: Reports doing well States recently had pneumonia for about a month in May, still has some cough. Symptoms have improved recently. Reports while she was sick appetite was higher States insulin dose was increased by PCP at end of May Current DM Medications: Insulin glargine (Lantus) 60 units once daily Previously Trialed DM Meds: Trulicity - GI upset Jardiance - unable to tolerate Glimepiride Metformin IR/ER- GI intolerance GLYCEMIC CONTROL: Glucometer present at visit: BG log present Hypoglycemia: No SMBGS (Fingersticks) Date Fasting AM 06/30 177 06/29 236 06/28 177 06/27 166 06/26 151 06/25 157 06/24 207 06/23 155 06/22 170 06/21 202 06/20 198 06/19 172 06/18 137 06/17 181 06/15 104 06/13 158 06/11 124 AVG 168 Past medical history reviewed. ALLERGIES Allergen Reactions Benadryl [Diphenhyd* Caffeine Mental Status Change Compazine [Prochlor* Imipramine Mental Status Change Tcn [Tetracyclines] GI Upset Trulicity [Dulaglut* Mental Status Change Current Outpatient Medications Medication Sig Dispense Refill insulin glargine 100 unit/mL (3 mL) Inject 60 Units subcutaneously daily at bedtime. 15 mL 11 albuterol HFA (PROVENTIL HFA, VENTOLIN HFA) 90 mcg/actuation inhaler Inhale 2 Puffs as instructed every 4 hours as needed for wheezing/shortness of breath. 1 Each 0 fluconazole (DIFLUCAN) 150 mg tablet Take 1 tablet by mouth once daily. Repeat in 3 days as needed. 2 tablet 0 cholecalciferol, Vitamin D3, (VITAMIN D3) 1,250 mcg (50,000 unit) cap capsule Take 1 capsule by mouth one time a week. 12 capsule 3 acetaminophen (TYLENOL EXTRA STRENGTH) 500 mg tablet Take 2 tablets by mouth once daily. clobetasol (TEMOVATE) 0.05 % cream Apply to affected area two times a day. 15 g 2 Insulin Upatoi, Disposable, (BD ULTRA-FINE HEAVEN PEN NEEDLE) 32 gauge x /32 Use one needle for each dose. 1/day. 30 Each 11 No current facility-administered medications for this visit. Pill bottles are not present. Adherence: denies missed doses. Rx coverage: Payor: [employer] MEDICARE / Plan: [employer] MEDICARE PPO / Product Type: PPO / Medications affordable? Yes PHARMACOTHERAPY PREVENTATIVE MEDS: On SUNSHINE/ARB: No On Statin: No On ASA: No EXAM: There were no vitals taken for this visit. Last 3 Encounter BP Readings: Date: BP: 06/10/2024 160/88[rechecked at end of visit[ 06/06/2024 142/80 05/27/2024 198/72 Wt: 92.1 kg (203 lb 0.7 oz) BMI: 35.97 kg/(m2) LABS: Lab Results Component Value Date HBA1C 8.4 05/17/2024 HBA1C 8.3 02/16/2024 HBA1C 9.7 11/19/2023 HBA1C 12.0 03/18/2021 HBA1C 11.7 11/22/2020 HBA1C 11.2 08/14/2020 Glucose 200 05/17/2024 BUN 13 05/17/2024 Creatinine 0.58 05/17/2024 Sodium 134 05/17/2024 Potassium 4.2 05/17/2024 Chloride 99 05/17/2024 CO2 23 05/17/2024 Protein, Total 7.3 05/17/2024 Albumin 3.7 05/17/2024 Calcium 8.7 05/17/2024 Alkaline Phosphatase 85 05/17/2024 Bilirubin, Total 1.0 05/17/2024 AST 20 05/17/2024 ALT 16 05/17/2024 Lab Results Component Value Date CHOL 223 05/17/2024 CHOL 225 03/18/2021 LDL 146 05/17/2024 LDL 153 03/18/2021 HDL 46 05/17/2024 HDL 44 03/18/2021 TG 156 05/17/2024 TG 138 03/18/2021 Albumin/Creat Ratio (mg/g) Date Value 11/19/2023 98 (H) eGFR-All Other Races (.) Date Value 03/18/2021 >60 Estimated Glomerular Filtration Rate (mL/min/1.73m?) Date Value 05/17/2024 96 ASSESSMENT/PLAN: 1. Uncontrolled type 2 diabetes mellitus with hyperglycemia (HCC) - ICD9: 250.02, ICD10: E11.65 - Improving control - Continue current medications - Blood glucose monitoring on a twice daily schedule - Instructed to begin checking before dinner or at bedtime periodically - Counseled on healthy diet and regular exercise - Discussed diabetic education issues of diabetes complications and monitoring required and hypoglycemic/hyperglyc emic symptoms - Follow up in 3 months, sooner should any other issues arise. - Due for A1c ~08/17/24 (already ordered) Follow Up: Next PCP visit: not sc (more content not included)... Normal [facility] CNOVon 06-10-2024 CNOV Office Visit (FAMPWS ) MAYA BLANCHARD ([id number]) 1950 F Date Time Provider Department 06/10/24 10:00 AM JANET LITTLE [facility] During your visit today, we recorded the following information about you: Pulse Respiration Blood pressure Weight 78/minute 16/minute 160/88 92.1 kg Janet Little MD 07/19/2024 3:23 PM Addendum Chief Complaint Patient presents with: F/U 3 Month HPI Maya Blanchard is a 74 year old female who presents here today for 3 month follow up. No bowel, Gi, or urinary concerns. Wears pad due to urinary incontinence. JACLYN/Depression: Chronic. Is doing Counseling and taking Ativan 1 mg 2-3 x a day as needed. DM: Working with Pharmacist. Checking BS once daily with FBS 117-275. She is taking Lantus 55 units daily which was increased last visit from 50 units. She trying to watch diet, limiting sugar intake. Some neuropathy sx. Denies any hypoglycemic episodes. HTN: No taking any medications. Denies checking BP at home. No chest pains, dizziness, or SOB. Lipid: Hx of TIA. Not taking any cholesterol medications. Rides stationary bike about half hour a day. Is trying to watch diet. Pain: b/l legs; has been following with Ortho Dr. Rodas, been getting injections, doing stretches, taking Tylenol prn and at bedtime. She doesn't feel that the knee injections did anything for her pain. She started PT but hasn't been going to visits since being ill but is doing the PT exercises at home and using stationary bike. Was seen in May 27 and dx with Bacterial pneumonia. Was treated with zpak. She finished the zpak. Had cxr done at time of visit. She states her , daughter and all her kids have pneumonia. She was re-evaluated Wednesday 06/06 and was told she still had some pneumonia. Was advised to use Mucinex which she takes off and on as it dries her out too much, felt it made her cough more without any phlegm. She was told by Dr. Baldwin in that she could call in for a script of Augmentin if she felt her sx were worsening. No repeat xray done. Has not had any issues with SOB or fevers since being treated with the Zpak. She feels the coughing is better than it was when first dx but is not resolving completely, hasn't worsened. Finds if she lays on the right side she doesn't cough as much, is sleeping a little more through the night without coughing. Vaginal yeast infection due to being treated with antibiotics. She isn't sure if she has a UTI, frequency. Denies any urgency or pain with urination. She some back pain but thinks it is from all the coughing. Past medical history, appointments, medications, allergies reviewed. Previous Medical History PAST MEDICAL HISTORY Diagnosis Date Anxiety Chronic rhinitis deviated septum Diabetes mellitus type II, uncontrolled Esophageal reflux Moderate cervical dysplasia Other abnormal glucose Other and unspecified hyperlipidemia PMH - PAST MEDICAL HISTORY OF adopted Previous Surgical History PAST SURGICAL HISTORY Procedure Laterality Date CHOLECYSTECTOMY Cholecystectomy COLONOSCOPY FLX DX W/COLLJ SPEC WHEN PFRMD 11/30/98 Per repeat in EGD 11/30/98 Colonoscopy done at same time VAGINAL HYSTERECTOMY UTERUS 250 GM/< 1975 due to precancerous cells - not cancer Family History FAMILY HISTORY Adopted: Yes Patient Allergies ALLERGIES Allergen Reactions Benadryl [Diphenhyd* Caffeine Mental Status Change Compazine [Prochlor* Imipramine Mental Status Change Tcn [Tetracyclines] GI Upset Trulicity [Dulaglut* Mental Status Change Current Medications Current Outpatient Medications on File Prior to Visit Medication Sig azithromycin (ZITHROMAX) 250 mg tablet Take 2 tablets by mouth once daily for 1 day, THEN 1 tablet once daily for 4 days. cefUROXime (CEFTIN) 500 mg tablet Take 1 tablet by mouth two times a day for 5 days. benzonatate (TESSALON PERLES) 100 mg capsule Take 1-2 capsules by mouth three times a day as needed for cough. acetaminophen (TYLENOL EXTRA STRENGTH) 500 mg tablet Take 2 tablets by mouth once daily. insulin glargine 100 unit/mL (3 mL) Inject 55 Units subcutaneously daily at bedtime. LORazepam (ATIVAN) 1 mg tablet Take 1 tablet by mouth three times a day as needed for anxiety for up to 90 days. clobetasol (TEMOVATE) 0.05 % cream Apply to affected area two times a day. Insulin Upatoi, Disposable, (BD ULTRA-FINE HEAVEN PEN NEEDLE) 32 gauge x 32 Use one needle for each dose. 1/day. No current facility-administered medications on file prior to visit. Social History Social History Tobacco Use Smoking status: Never Smokeless tobacco: Never Vaping Use Vaping status: Never Used Substance Use Topics Alcohol use: Yes Comment: Selom Drug use: No EXAM: BP 160/88 Pulse 78 Resp 16 Wt 92.1 kg (203 lb 0.7 oz) BMI 35.97 kg/m? General (more content not included)... [facility] MAYA BLANCHARD ([id number]) 1950 F Date Time Provider Department 06/06/24 9:15 AM NABIL BALDWIN [facility] During your visit today, we recorded the following information about you: Temperature Pulse Respiration Blood pressure 97.2 degrees 102/minute 18/minute 142/80 Weight 91.6 kg Nabil Baldwin MD 06/06/2024 9:42 AM Signed Patient presents with: Chest Congestion: cough, + pneumonia 05/26 given zpak finished 6 days ago HPI: Feeling sick for 2-3 weeks. Seen here 05/27/24 and CXR showed: Prominence of the perihilar bronchovascular markings with perihilar opacities RIGHT greater than LEFT may be secondary to bronchitis/bronchiolit is and bronchopneumonia. She returns because she still has a bad cough. She has not had a fever for 3-4 days. Her was seen again recently and had augmentin prescribed. Positive symptoms: Cough, Rhinorrhea, Headache/neck pain from cough, Negative symptoms: Shortness of breath, Wheezing, Chest pain, Fever, Nausea, Vomiting, Diarrhea, OTC: finished zpak. She did not take cefdinir out of concern for side effects. Tessalon was not helpful for the cough. MEDICATIONS: Current Outpatient Medications Medication Sig cholecalciferol, Vitamin D3, (VITAMIN D3) 1,250 mcg (50,000 unit) cap capsule Take 1 capsule by mouth one time a week. acetaminophen (TYLENOL EXTRA STRENGTH) 500 mg tablet Take 2 tablets by mouth once daily. insulin glargine 100 unit/mL (3 mL) Inject 55 Units subcutaneously daily at bedtime. LORazepam (ATIVAN) 1 mg tablet Take 1 tablet by mouth three times a day as needed for anxiety for up to 90 days. clobetasol (TEMOVATE) 0.05 % cream Apply to affected area two times a day. Insulin Upatoi, Disposable, (BD ULTRA-FINE HEAVEN PEN NEEDLE) 32 gauge x 5/32 Use one needle for each dose. 1/day. benzonatate (TESSALON PERLES) 100 mg capsule Take 1-2 capsules by mouth three times a day as needed for cough. (Patient not taking: Reported on 06/06/2024) No current facility-administered medications for this visit. ALLERGIES: ALLERGIES Allergen Reactions Benadryl [Diphenhyd* Caffeine Mental Status Change Compazine [Prochlor* Imipramine Mental Status Change Tcn [Tetracyclines] GI Upset Trulicity [Dulaglut* Mental Status Change VITALS: BP 142/80 Pulse 102 Temp 36.2 ?C (97.2 ?F) Resp 18 Wt 91.6 kg (201 lb 15.1 oz) SpO2 95% BMI 35.77 kg/m? PHYSICAL EXAM: GEN: mildly ill appearing, pleasant, alert, accompanied by her HEENT: PERRL, EOMI, conjunctiva clear Ears: canals clear. TMs without erythema, bulge, or effusion Sinuses: non-tender frontal sinus, non-tender maxillary sinuses Throat: moist mucous membranes, no erythema, no exudate Neck: supple, no thyromegaly, no lymphadenopathy HEART: regular rate and rhythm, no murmurs LUNGS: clear to auscultation, no wheezes or crackles, no increased WOB; harsh raspy and wheezy cough. ASSESSMENT/PLAN: 1. Bacterial pneumonia - ICD9: 482.9, ICD10: J15.9 Discussed expected course for pneumonia recovery may include coughing for 3 to 5 weeks. Trial - MUCINEX DM 30 MG-600 MG TABLET,EXTENDED RELEASE 12 HR Add augmentin with any signs of worsening: worsening cough, worsening shortness of breath, increasing chest pain, or return of fever. Nabil Baldwin MD Allergies As of Date: 06/06/2024 Noted Allergy Reaction BENADRYL (DIPHENHYDRAMINE HCL) 07/17/2005 CAFFEINE 08/14/2005 1 - Mental Status Change COMPAZINE (PROCHLORPERAZINE EDISY*07/17/2005 IMIPRAMINE 08/14/2005 1 - Mental Status Change TCN (TETRACYCLINES) 08/14/2005 8 - GI Upset TRULICITY (DULAGLUTIDE) 10/21/2022 1 - Mental Status Change Date Reviewed: 06/06/2024 Reviewed by: Sue Ledbetter MA - Fully Assessed Reason for Visit: Chest Congestion [236] Cmt: cough, + pneumonia 05/26 given zpak finished 6 days ago Primary Visit Diagnosis:Bacterial pneumonia [J15.9] Order(s):dextromethorp tarango-guaiFENesin (MUCINEX DM) 30-600 mg per tabletTake 1 tablet by mouth two times a day for 10 days.Disp: 20 tabletRfl: 0 Prescriptions as of 06/06/2024 - dextromethorphan-guaiF ENesin (MUCINEX DM) 30-600 mg per tablet Take 1 tablet by mouth two times a day for 10 days. - cholecalciferol, Vitamin D3, (VITAMIN D3) 1,250 mcg (50,000 unit) cap capsule Take 1 capsule by mouth one time a week. - benzonatate (TESSALON PERLES) 100 mg capsule Take 1-2 capsules by mouth three times a day as needed for cough. - acetaminophen (TYLENOL EXTRA STRENGTH) 500 mg tablet Take 2 tablets by mouth once daily. - insulin glargine 100 unit/mL (3 mL) Inject 55 Units subcutaneously daily at bedtime. - LORazepam (ATIVAN) 1 mg tablet Take 1 tablet by mouth three times a day as needed for anxiety for up to 90 days. - clobetasol (TEMOVATE) 0.05 % cream Apply to affected area two times a day. - Insulin Upatoi, Disposable, (BD UL (more content not included)... Normal [facility]03[facility]20[facility] MAYA BLANCHARD ([id number]) 1950 F Date Time Provider Department 06/03/24 [facility] During your visit today, we recorded the following information about you: Brandi Childers APRN.NICK 06/03/2024 10:33 AM Signed Can you please call the patient and let her know that I reviewed her vitamin D results. Vitamin D was very low. I would recommend starting a once weekly supplement and rechecking labs in 3 months. If she is agreeable please verify pharmacy. Please let me know if she has any questions. Thank you. Brandi Childers APRN.Rudolph Pena LPN 06/03/2024 10:37 AM Signed Patient notified of results, verbalizes understanding of instructions. Pt agreed to take the Vit D. Please send to EILEEN Kwon Ashley, APRN.[facility] 06/03/2024 10:47 AM Signed The following approved medication requests have been transmitted electronically. Requested Prescriptions Signed Prescriptions Disp Refills cholecalciferol, Vitamin D3, (VITAMIN D3) 1,250 mcg (50,000 unit) cap capsule 12 capsule 3 Sig: Take 1 capsule by mouth one time a week. Authorizing Provider: BRANDI CHILDERS APRN.TELEPHONE REPAIRER Get repeat lab in 3 months Allergies As of Date: 06/03/2024 Noted Allergy Reaction BENADRYL (DIPHENHYDRAMINE HCL) 07/17/2005 CAFFEINE 08/14/2005 1 - Mental Status Change COMPAZINE (PROCHLORPERAZINE EDISY*07/17/2005 IMIPRAMINE 08/14/2005 1 - Mental Status Change TCN (TETRACYCLINES) 08/14/2005 8 - GI Upset TRULICITY (DULAGLUTIDE) 10/21/2022 1 - Mental Status Change Date Reviewed: 05/27/2024 Reviewed by: Jalyn Walker APRN.TELEPHONE REPAIRER - Fully Assessed Reason for Visit: Results [95] Cmt: Vitamin d Primary Visit Diagnosis:Vitamin D deficiency [E55.9] Order(s):VITAMIN D 25 HYDROXY [SQVITD] Order #: [id number] FUTURE cholecalciferol, Vitamin D3, (VITAMIN D3) 1,250 mcg (50,000 unit) cap capsuleTake 1 capsule by mouth one time a week.Disp: 12 capsuleRfl: 3 Prescriptions as of 06/03/2024 - cholecalciferol, Vitamin D3, (VITAMIN D3) 1,250 mcg (50,000 unit) cap capsule Take 1 capsule by mouth one time a week. - benzonatate (TESSALON PERLES) 100 mg capsule Take 1-2 capsules by mouth three times a day as needed for cough. - acetaminophen (TYLENOL EXTRA STRENGTH) 500 mg tablet Take 2 tablets by mouth once daily. - insulin glargine 100 unit/mL (3 mL) Inject 55 Units subcutaneously daily at bedtime. - LORazepam (ATIVAN) 1 mg tablet Take 1 tablet by mouth three times a day as needed for anxiety for up to 90 days. - clobetasol (TEMOVATE) 0.05 % cream Apply to affected area two times a day. - Insulin Upatoi, Disposable, (BD ULTRA-FINE HEAVEN PEN NEEDLE) 32 gauge x Use one needle for each dose. 1/day. Problem List As Of Date 06/03/2024 Noted Resolved ESOPHAGEAL REFLUX [K21.9] CHRONIC RHINITIS [J31.0] 09/12/2005 DYSMETABOLIC SYNDROME X [E88.810] 09/12/2005 09/02/2007 Mixed hyperlipidemia [E78.2] Other abnormal glucose [R73.09] 08/28/2016 ABNORMAL PAP SMEAR OF CERVIX NEC AND HPV [R89.6]09/02/2007 Essential hypertension, benign [I10] 09/02/2007 06/30/2012 Nonspecific abnormal results of thyroid functio*10/05/2007 08/28/2016 Elevated BP [DMH7544] 06/30/2012 08/28/2016 Type 2 diabetes mellitus with hyperglycemia (HC*05/26/2023 Anxiety and depression [F41.9, F32.A] 08/28/2016 Essential hypertension [I10] 08/28/2016 History of stroke [Z86.73] 12/02/2021 Non-compliance [Z91.199] 12/03/2021 Type 2 diabetes mellitus with diabetic neuropat*10/21/2022 Type 2 diabetes mellitus with peripheral vascul*12/02/2021 Current use of insulin (HCC) [Z79.4] 05/26/2023 Major depressive disorder, recurrent, mild (HCC*08/28/2023 Severe obesity (BMI 35.0-39.9) with comorbidity*08/28/2023 12/03/2023 Prescriptions ordered this encounter Disp Refills Start End CHOLECALCIFEROL (VITAMIN D3) 1,250 M* 12 c* 3 06/03/2024 06/03/2025 Route: ORAL Sig: Take 1 capsule by mouth one time a week. Encounter Status:Closed by BRANDI CHILDERS on 06/03/24 Normal [facility] 25(OH)D3 [facility] 2023 25-hydroxyvitamin D3 [Mass/Vol] 17.3 ng/mL Low 31.0-80.0 [facility] Comment on above: Order Comment: Speci men Type: BLOOD SPECIMENOrdering Facility: [facility] Address: [facility] [place] [address] Result Comment: Clas sification of 25 [place] Vitamin D status: Deficiency/Insufficiency: < or = 30 ng/ml. Sufficiency/Optimal Levels: 31-80 ng/mL Toxicity: > 100 ng/mL. Test performed by chemiluminescent immunoassay. Performed By: #### 1 989-3 ####[facility] STAS [id number] [place] [id number] [facility] CNOVon 05-27-2024 CNOV Office Visit (UCWSTR ) MAYA BLANCHARD ([id number]) 1950 F Date Time Provider Department 05/27/24 9:45 AM JALYN WALKER [facility] During your visit today, we recorded the following information about you: Temperature Pulse Respiration Blood pressure 99.9 degrees 98/minute 20/minute 198/72 Weight 93.1 kg Jalyn Walker, SALESPERSON [employer].TELEPHONE REPAIRER 05/27/2024 10:23 AM Signed Patient presents with: Cough: Chest congestion x1.5 weeks, low fever x4 days Feels symptoms are getting worse This morning her temperature was 100 She has tried tylenol, cough drops, vaporizer, and Vicks vapor rub Cough Pertinent negatives include no chills, no ear pain, no rhinorrhea, no sore throat and no myalgias. Review of Systems Constitutional: Positive for diaphoresis and fever (100 T max). Negative for chills. HENT: Positive for congestion and postnasal drip. Negative for ear pain, rhinorrhea and sore throat. Respiratory: Positive for cough (productive at times). Musculoskeletal: Negative for myalgias. Physical Exam Vitals reviewed. Constitutional: Appearance: Normal appearance. HENT: Head: Normocephalic. Right Ear: Tympanic membrane, ear canal and external ear normal. Left Ear: Ear canal and external ear normal. A middle ear effusion is present. Nose: Congestion present. Mouth/Throat: Mouth: Mucous membranes are moist. Pharynx: No posterior oropharyngeal erythema. Eyes: Extraocular Movements: Extraocular movements intact. Cardiovascular: Rate and Rhythm: Normal rate and regular rhythm. Heart sounds: Normal heart sounds. Pulmonary: Effort: Pulmonary effort is normal. No respiratory distress. Breath sounds: Normal breath sounds. No wheezing, rhonchi or rales. Comments: Harsh cough Neurological: Mental Status: She is alert. ASSESSMENT/PLAN: 1. Acute cough - ICD9: 786.2, ICD10: R05.1 (primary diagnosis) - XR CHEST 2V FRONTAL/LAT - CXR per radiologist review showed opacities right greater than left may be secondary to bronchitis/bronchiolit is and bronchopnemonia 2. Bacterial pneumonia - ICD9: 482.9, ICD10: J15.9 - She has a history of diabetes - Treat with ceftin and azithromycin - Reviewed follow up instructions as well as symptoms to present to ER - She verbalized understanding and agreement with this plan. KRISTA Cowan Samantha L, APRN.CNP 05/27/2024 10:19 AM Addendum - Ceftin twice daily for 5 days - Azithromycin once daily for 5 days - Tessalon perles 1-2 capsules 3 times per day - If no improvement in the next 1 week follow up with primary care - Follow up 3 weeks for repeat chest x-ray - If you develop shortness of breath, difficulty breathing, or chest pain go to the ER PNEUMONIA PATIENT INSTRUCTIONS: What is pneumonia? Pneumonia is an infection in one or both of your lungs that can be caused by several kinds of germs, such as: Bacteria viruses fungi (molds) (uncommon) Pneumonia causes swelling (inflammation) of the airways and causes air sacs in the lungs to fill with mucus and other fluids, making it difficult for oxygen to reach the blood. People who are otherwise healthy often recover quickly when given prompt and proper care. However, pneumonia is a serious condition. You are at higher risk if you: smoke are over age 65 have a chronic illness, especially one that affects the heart, lungs, or kidneys (such as COPD, diabetes) have a weakened immune system for any reason (such as from medication, cancer, or a transplant) have trouble swallowing have had a recent surgery or procedure have pneumonia that doesn't get treated If you are not sure whether any of these apply to you, ask your health care provider. How Your Lungs Work Your lungs' main job is to get oxygen into your blood and remove carbon dioxide. This happens during breathing. We breathe 12 to 20 times per minute when we are not sick. When you breathe in, air travels down the back of your throat and passes through your voice box and into your windpipe (trachea). Your trachea splits into two air passages (bronchial tubes). One bronchial tube leads to the left lung, the other to the right lung. For the lungs to perform their best, the airways need to be open as you breathe in and out. Swelling (inflammation) and mucus can make it harder to move air through the airways, making it harder to breathe. This leads to shortness of breath, difficulty breathing, and feeling more tired than normal. Bacterial Pneumonia Viral Pneumonia What is it? Bacterial pneumonia is caused by bacteria germs. The streptococcus pneumoniae germ is the most common cause of bacterial pneumonia. Viral pneumonia is caused by virus germs. About half of all people with pneumonia have viral pneumonia. Viral pneumonia is usually less serious than bacterial pneumonia. What are the signs a (more content not included)... Normal [facility] 05-27-2024 [facility] MAYA BLANCHARD ([id number]) 1950 F Date Time Provider Department 05/27/24 [facility] During your visit today, we recorded the following information about you: Keesha Hernandez, LUBA 05/27/2024 10:29 AM Signed Patient phoned to ask pcp to place lab order for Vit D. States she just wants to see if it's low. States she is not having symptoms, just wants to know the result. Pended. Brandi Childers APRN.NICK 05/27/2024 2:17 PM Signed Vitamin D lab order has been placed. Brandi Childers APRN.Verito Burgess OCCA 05/27/2024 2:27 PM Signed TC to patient who is informed lab order has been placed. No further questions at this time. PATRICIA King Allergies As of Date: 05/27/2024 Noted Allergy Reaction BENADRYL (DIPHENHYDRAMINE HCL) 07/17/2005 CAFFEINE 08/14/2005 1 - Mental Status Change COMPAZINE (PROCHLORPERAZINE EDISY*07/17/2005 IMIPRAMINE 08/14/2005 1 - Mental Status Change TCN (TETRACYCLINES) 08/14/2005 8 - GI Upset TRULICITY (DULAGLUTIDE) 10/21/2022 1 - Mental Status Change Date Reviewed: 05/27/2024 Reviewed by: Jalyn Walker APRN.TELEPHONE REPAIRER - Fully Assessed Reason for Visit: Lab order request [Other] Primary Visit Diagnosis:Major depressive disorder, recurrent, mild (HCC) [F33.0] Order(s):VITAMIN D 25 HYDROXY [SQVITD] Order #: [id number] FUTURE Prescriptions as of 05/27/2024 - azithromycin (ZITHROMAX) 250 mg tablet Take 2 tablets by mouth once daily for 1 day, THEN 1 tablet once daily for 4 days. - cefUROXime (CEFTIN) 500 mg tablet Take 1 tablet by mouth two times a day for 5 days. - benzonatate (TESSALON PERLES) 100 mg capsule Take 1-2 capsules by mouth three times a day as needed for cough. - acetaminophen (TYLENOL EXTRA STRENGTH) 500 mg tablet Take 2 tablets by mouth once daily. - insulin glargine 100 unit/mL (3 mL) Inject 55 Units subcutaneously daily at bedtime. - LORazepam (ATIVAN) 1 mg tablet Take 1 tablet by mouth three times a day as needed for anxiety for up to 90 days. - clobetasol (TEMOVATE) 0.05 % cream Apply to affected area two times a day. - Insulin Upatoi, Disposable, (BD ULTRA-FINE HEAVEN PEN NEEDLE) 32 gauge x Use one needle for each dose. 1/day. Problem List As Of Date 05/27/2024 Noted Resolved ESOPHAGEAL REFLUX [K21.9] CHRONIC RHINITIS [J31.0] 09/12/2005 DYSMETABOLIC SYNDROME X [E88.810] 09/12/2005 09/02/2007 Mixed hyperlipidemia [E78.2] Other abnormal glucose [R73.09] 08/28/2016 ABNORMAL PAP SMEAR OF CERVIX NEC AND HPV [R89.6]09/02/2007 Essential hypertension, benign [I10] 09/02/2007 06/30/2012 Nonspecific abnormal results of thyroid functio*10/05/2007 08/28/2016 Elevated BP [RVS5435] 06/30/2012 08/28/2016 Type 2 diabetes mellitus with hyperglycemia (HC*05/26/2023 Anxiety and depression [F41.9, F32.A] 08/28/2016 Essential hypertension [I10] 08/28/2016 History of stroke [Z86.73] 12/02/2021 Non-compliance [Z91.199] 12/03/2021 Type 2 diabetes mellitus with diabetic neuropat*10/21/2022 Type 2 diabetes mellitus with peripheral vascul*12/02/2021 Current use of insulin (HCC) [Z79.4] 05/26/2023 Major depressive disorder, recurrent, mild (HCC*08/28/2023 Severe obesity (BMI 35.0-39.9) with comorbidity*08/28/2023 12/03/2023 Encounter Status:Closed by VERITO ROJAS on 05/27/24 Normal [facility] XR CHEST 2V FRONTAL/LATon XR CHEST 2V FRONTAL/LAT * * *Final Report* * * DATE OF EXAM: May 27 2024 9:53AM WOX 5291 - XR CHEST 2V FRONTAL/LAT / PROCEDURE REASON: Acute cough * * * * Physician Interpretation * * * * EXAMINATION: CHEST RADIOGRAPH (2 VIEW FRONTAL and LATERAL) PATIENT/TECHNOLOGIST PROVIDED HISTORY: Cough and fever x 2 weeks CLINICAL HISTORY: 74 years old Female with Acute cough MQ: XC2_6 EXAM DATE/TIME: 05/27/2024 9:53 AM COMPARISON: No relevant prior studies available. RESULT: Lines, tubes, and devices: None. Lungs and pleura: Prominence of the perihilar bronchovascular markings with perihilar opacities RIGHT greater than LEFT may be secondary to bronchitis/bronchiolit is and bronchopneumonia. No pleural effusion or pneumothorax. Cardiomediastinal silhouette: Normal cardiomediastinal silhouette. Bones and soft tissues: Degenerative changes in the thoracic spine and bilateral shoulders. Cholecystectomy clips. IMPRESSION: Prominence of the perihilar bronchovascular markings with perihilar opacities RIGHT greater than LEFT may be secondary to bronchitis/bronchiolit is and bronchopneumonia. Resident Intern: YADI Transcribe Date/Time: May 27 2024 9:57A Dictated by : DARSHAN CARTER DO This examination was interpreted and the report reviewed and electronically signed by: DARSHAN CARTER DO on May 27 2024 10:02AM EST [id number] Normal [facility] XR Chest PA and Lateralon IMPRESSION: Prominence of the perihilar bronchovascular markings with perihilar opacities RIGHT greater than LEFT may be secondary to bronchitis/bronchiolit is and bronchopneumonia. Resident Intern: YADI Transcribe Date/Time: May 27 2024 9:57A Dictated by : DARSHAN CARTER DO This examination was interpreted and the report reviewed and electronically signed by: DARSHAN CARTER DO on May 27 2024 10:02AM EST DIVISION OF RADIOLOGY * * *Final Report* * * DATE OF EXAM: May 27 2024 9:53AM WOX 5291 - XR CHEST 2V FRONTAL/LAT / PROCEDURE REASON: Acute cough * * * * Physician Interpretation * * * * EXAMINATION: CHEST RADIOGRAPH (2 VIEW FRONTAL & LATERAL) PATIENT/TECHNOLOGIST PROVIDED HISTORY: Cough and fever x 2 weeks CLINICAL HISTORY: 74 years old Female with Acute cough MQ: XC2_6 EXAM DATE/TIME: 05/27/2024 9:53 AM COMPARISON: No relevant prior studies available. RESULT: Lines, tubes, and devices: None. Lungs and pleura: Prominence of the perihilar bronchovascular markings with perihilar opacities RIGHT greater than LEFT may be secondary to bronchitis/bronchiolit is and bronchopneumonia. No pleural effusion or pneumothorax. Cardiomediastinal silhouette: Normal cardiomediastinal silhouette. Bones and soft tissues: Degenerative changes in the thoracic spine and bilateral shoulders. Cholecystectomy clips. DIVISION OF RADIOLOGY Provider, [facility] - 05/27/2024 * * *Final Report* * * DATE OF EXAM: May 27 2024 9:53AM WOX 5291 - XR CHEST 2V FRONTAL/LAT / PROCEDURE REASON: Acute cough * * * * Physician Interpretation * * * * EXAMINATION: CHEST RADIOGRAPH (2 VIEW FRONTAL & LATERAL) PATIENT/TECHNOLOGIST PROVIDED HISTORY: Cough and fever x 2 weeks CLINICAL HISTORY: 74 years old Female with Acute cough MQ: XC2_6 EXAM DATE/TIME: 05/27/2024 9:53 AM COMPARISON: No relevant prior studies available. RESULT: Lines, tubes, and devices: None. Lungs and pleura: Prominence of the perihilar bronchovascular markings with perihilar opacities RIGHT greater than LEFT may be secondary to bronchitis/bronchiolit is and bronchopneumonia. No pleural effusion or pneumothorax. Cardiomediastinal silhouette: Normal cardiomediastinal silhouette. Bones and soft tissues: Degenerative changes in the thoracic spine and bilateral shoulders. Cholecystectomy clips. IMPRESSION IMPRESSION: Prominence of the perihilar bronchovascular markings with perihilar opacities RIGHT greater than LEFT may be secondary to bronchitis/bronchiolit is and bronchopneumonia. Resident Intern: PSCB Transcribe Date/Time: May 27 2024 9:57A Dictated by : DARSHAN CARTER DO This examination was interpreted and the report reviewed and electronically signed by: DARSHAN CARTER DO on May 27 2024 10:02AM EST [facility] Radiology Study observation (narrative) [facility] XR Chest PA and LateralOrder ed By: Ccf Provider on 05-27-2024 [facility] Comprehensive metabolic 2000 panelon 05-17-2024 Albumin [Mass/Vol] 3.7 g/dL Low 3.9-4.9 [facility] Comment on above: Order Comment: Carlos martin Type: BLOOD SPECIMENOrdering Facility: [facility] Address: [address] [place] [address] Performed By: #### 2 4331-1, 65849-9 ####[facility] LABCLIA [id number] [place] [address] [place] ALP [Catalytic activity/Vol] 85 U/L Normal 34-123 [facility] Comment on above: Order Comment: Joi men Type: BLOOD SPECIMENOrdering Facility: [facility] Address: [address] [place] [id number] Performed By: #### 2 4331-1, 00116-9 ####[facility] LABCLIA [id number] [place] [id number] [place] ALT [Catalytic activity/Vol] 16 U/L Normal 7-38 [facility] Comment on above: Order Comment: Speci men Type: BLOOD SPECIMENOrdering Facility: [facility] Address: [address] [place] [address] Performed By: #### 2 4331-1, ####[facility] LABCLIA [id number] [place] [address] [place] Anion gap [Moles/Vol] 12 mmol/L Normal 8-15 [facility] Comment on above: Order Comment: Speci men Type: BLOOD SPECIMENOrdering Facility: [facility] Address: [address] [place] [address] Performed By: #### 2 4331-, 74094-4 ####[facility] LABCLIA [id number] [place] [address] [place] AST [Catalytic activity/Vol] 20 U/L Normal 13-35 [facility] Comment on above: Order Comment: Speci men Type: BLOOD SPECIMENOrdering Facility: [facility] Address: [address] [place] [address] Performed By: #### 2 4331-1, 86512-4 ####[facility] LABCLIA [id number] [place] [id number] [place] Bilirubin [Mass/Vol] 1.0 mg/dL Normal 0.2-1.3 [facility] Comment on above: Order Comment: Speci men Type: BLOOD SPECIMENOrdering Facility: [facility] Address: [address] [place] [address] Performed By: #### 2 4331-1, 19247-8 ####[facility] LABCLIA [id number] [place] [address] [place] Calcium [Mass/Vol] 8.7 mg/dL Normal 8.5-10.2 [facility] Comment on above: Order Comment: Speci men Type: BLOOD SPECIMENOrdering Facility: [facility] Address: [address] [place] [address] Performed By: #### 2 4331-1, 47930-0 ####[facility] LABCLIA [id number] [place] [address] [place] Chloride [Moles/Vol] 99 mmol/L Normal 98-107 [facility] Comment on above: Order Comment: Speci men Type: BLOOD SPECIMENOrdering Facility: [facility] Address: [address] [place] [address] Performed By: #### 2 4331-, 75280-0 ####[facility] LABCLIA [id number] [place] [address] [place] CO2 [Moles/Vol] 23 mmol/L Normal 22-30 [facility] Comment on above: Order Comment: Speci men Type: BLOOD SPECIMENOrdering Facility: [facility] Address: [address] [place] [address] Performed By: #### 2 4331-1, 84676-8 ####[facility] LABCLIA [id number] [place] [address] [place] Creatinine [Mass/Vol] 0.58 mg/dL Normal 0.58-0.96 [facility] Comment on above: Order Comment: Speci men Type: BLOOD SPECIMENOrdering Facility: [facility] Address: [address] [place] [address] Performed By: #### 2 4331-1, 63157-9 ####[facility] LABCLIA [id number] [place] [address] [place] Creatinine and Glomerular filtration rate.predicted panel (S/P/Bld) 96 mL/min/1.73m??? Normal >=60 [facility] Comment on above: Order Comment: Carlos martin Type: BLOOD SPECIMENOrdering Facility: [facility] Address: [address] [place] [address] Result Comment: Irina mated Glomerular Filtration Rate (eGFR) is calculated using the 2020 CKD-EPI creatinine equation. This equation utilizes serum creatinine, sex, and age as parameters. The creatinine assay has traceable calibration to isotope dilution-mass spectrometry. Refer to KDIGO guidelines for clinical interpretation. In patients with unstable renal function, e.g. those with acute kidney injury, the eGFR may not accurately reflect actual GFR. Performed By: #### 2 4331-1, 11207-9 ####[facility] LABCLIA [id number] [place] [address] [place] Glucose [Mass/Vol] 200 mg/dL High 74-99 [facility] Comment on above: Order Comment: Carlos martin Type: BLOOD SPECIMENOrdering Facility: [facility] Address: [address] [place] [address] Result Comment: The [place] Diabetes Association (ADA) provides guidance for cutoff values for fasting glucose and random glucose. The ADA defines fasting as no caloric intake for at least 8 hours. Fasting plasma glucose results between 100 to 125 mg/dL indicate increased risk for diabetes (prediabetes). Fasting plasma glucose results greater than or equal to 126 mg/dL meet the criteria for diagnosis of diabetes. In the absence of unequivocal hyperglycemia, results should be confirmed by repeat testing. In a patient with classic symptoms of hyperglycemia or hyperglycemic crisis, random plasma glucose results greater than or equal to 200 mg/dL meet the criteria for diagnosis of diabetes. Reference: Standards of Medical Care in Diabetes 2016, [place] Diabetes Association. Diabetes Care. 2016.39(Suppl 1). Performed By: #### 2 4331-1, 74738-6 ####[facility] LABIA [id number] [place] [address] [place] Potassium [Moles/Vol] 4.2 mmol/L Normal 3.7-5.1 [facility] Comment on above: Order Comment: Speci men Type: BLOOD SPECIMENOrdering Facility: [facility] Address: [address] [place] [address] Performed By: #### 2 4331-1, 73769-4 ####[facility] LABCLIA [id number] [address] [address] [place] Protein [Mass/Vol] 7.3 g/dL Normal 6.3-8.0 [facility] Comment on above: Order Comment: Speci men Type: BLOOD SPECIMENOrdering Facility: [facility] Address: [address] [place] [address] Performed By: #### 2 4331-1, 69932-1 ####[facility] LABCLIA [id number] [place] [address] [place] Sodium [Moles/Vol] 134 mmol/L Low 136-144 [facility] Comment on above: Order Comment: Speci men Type: BLOOD SPECIMENOrdering Facility: [facility] Address: [address] [place] [address] Performed By: #### 2 4331-1, 84647-9 ####[facility] LABCLIA [id number] [place] [address] [place] Urea nitrogen [Mass/Vol] 13 mg/dL Normal 7-21 [facility] Comment on above: Order Comment: Speci men Type: BLOOD SPECIMENOrdering Facility: [facility] Address: [address] [place] [address] Performed By: #### 2 4331-1, ####[facility] LABCLIA [id number] [place] [address] [place] HbA1c (Bld)on 05-17-2024 Average glucose Estimated from glycated hemoglobin (Bld) [Mass/Vol] 194 mg/dL Normal [facility] Comment on above: Order Comment: Speci men Type: BLOOD SPECIMENOrdering Facility: [facility] Address: [address] [place] [address] Result Comment: eAG: (Estimated average glucose) is a calculated value from HgbA1c and is wholesale representative of the average blood glucose level in the last 2-3 month period. Performed By: #### 5 5454-3 ####[facility] LABCLIA [id number] [place] [address] [place] HbA1c (Bld) [Mass fraction] 8.4 % High 4.3-5.6 [facility] Comment on above: Order Comment: Speci men Type: BLOOD SPECIMENOrdering Facility: [facility] Address: [address] [place] [address] Result Comment: [place] Diabetes Association guidelines indicate that patients with HgbA1c in the range 5.7-6.4% are at increased risk for development of diabetes, and intervention by lifestyle modification may be beneficial. HgbA1c greater or equal to 6.5% is considered diagnostic of diabetes. Performed By: #### 5 5454-3 ####[facility] LABCLIA [id number] [place] [address] [place] Lipid 1996 panelon 4 Cholesterol [Mass/Vol] 223 mg/dL High <200 [facility] Comment on above: Order Comment: Carlos martin Type: BLOOD SPECIMENOrdering Facility: [facility] Address: [address] [place] [address] Result Comment: <200 mg/dL, Desirable 200-239 mg/dL, Borderline high >239 mg/dL, High Performed By: #### 2 4331-1, 45686-3 ####[facility] LABIA [id number] [place], [place] [address] [place] Cholesterol in HDL [Mass/Vol] 46 mg/dL Normal >39 [facility] Comment on above: Order Comment: Carlos martin Type: BLOOD SPECIMENOrdering Facility: [facility] Address: [address] [place] [address] Result Comment: 40-5 9 mg/dL, Acceptable >59 mg/dL, High: Negative risk factor for coronary heart disease <40 mg/dL, Low: Positive risk factor for coronary heart disease Performed By: #### 2 4331-1, 56944-3 ####[facility] LABCLIA [id number] [place] [address] [place] Cholesterol in LDL [Mass/Vol] 146 mg/dL High <100 [facility] Comment on above: Order Comment: Speci men Type: BLOOD SPECIMENOrdering Facility: [facility] Address: [address] [place] [address] Result Comment: <100 mg/dL, Optimal 100-129 mg/dL, Near optimal/above optimal 130-159 mg/dL, Borderline high 160-189 mg/dL, High >189 mg/dL, Very high Secondary prevention optimal LDL Cholesterol levels are recommended to be < 70 mg/dL Performed By: #### 2 4331-1, ####[facility] LABIA [id number] [address] [place] Cholesterol in LDL/Cholesterol in HDL [Mass ratio] 3.17 {ratio} High <2.54 [facility] Comment on above: Order Comment: Speci men Type: BLOOD SPECIMENOrdering Facility: [facility] Address: [address] [place] [address] Result Comment: Maureen medellin: 1. National Cholesterol Education Program ATP III Guideline At-A-Glance Quick Desk Reference: National Heart, Lung, and Blood [place]. National Institutes of Health. 2001: NIH Publication No. 01-3305. 2. An International Atherosclerosis Society position paper: global recommendations for the management of dyslipidemia: executive summary, Atherosclerosis. 2014: 232(2):410-413. Performed By: #### 2 4331-1, 42581-2 ####[facility] LABIA [id number] [place] [address] [place] Cholesterol in VLDL [Mass/Vol] 31 mg/dL High <30 [facility] Comment on above: Order Comment: Speci men Type: BLOOD SPECIMENOrdering Facility: [facility] Address: [address] [place] [address] Performed By: #### 2 4331-1, ####[facility] LABCLIA [id number] [place] [address] [place] Cholesterol non HDL [Mass/Vol] 177 mg/dL High <130 [facility] Comment on above: Order Comment: Speci men Type: BLOOD SPECIMENOrdering Facility: [facility] Address: [address] [place] [address] Result Comment: <130 mg/dL, Optimal 130-159 mg/dL, Near optimal/above optimal 160-189 mg/dL, Borderline high 190-219 mg/dL, High >219 mg/dL, Very high Secondary prevention optimal non HDL Cholesterol levels are recommended to be <100 mg/dL Performed By: #### 2 4331-1, ####[facility] LABCLIA [id number] [place] [address] [place] Cholesterol.total/Ch olesterol in HDL [Mass ratio] 4.85 {ratio} Normal <5.10 [facility] Comment on above: Order Comment: Speci men Type: BLOOD SPECIMENOrdering Facility: [facility] Address: [address] [place] [address] Performed By: #### 2 4331-, ####[facility] LABCLIA [id number] [place] [address] [place] FASTING TIME 12 hrs Normal [facility] Comment on above: Order Comment: Speci men Type: BLOOD SPECIMENOrdering Facility: [facility] Address: [address] [place] [address] Performed By: #### 2 4331-1, ####[facility] LABCLIA [id number] [place] [address] [place] Triglyceride [Mass/Vol] 156 mg/dL High <150 [facility] Comment on above: Order Comment: Speci men Type: BLOOD SPECIMENOrdering Facility: [facility] Address: [address] [place], [place] [address] [id number] Result Comment: <150 mg/dL, Normal 150-199 mg/dL, Borderline high 200-499 mg/dL, High >499 mg/dL, Very high Performed By: #### 2 4331-1, 42715-2 ####[facility] LABCLIA [id number] [id number] [id number] [place] [facility] CNOVon 05-05-2024 CNOV Office Visit (PHMEWO ) MAYA BLANCHADR ([id number]) 1950 F Date Time Provider Department 05/05/24 9:00 AM [facility] During your visit today, we recorded the following information about you: Darcy Palma RPh 05/05/2024 9:21 AM Signed Primary Care Pharmacy Visit CC (Reason for Consult): (E11.65) Uncontrolled type 2 diabetes mellitus with hyperglycemia (HCC) (primary encounter diagnosis) Goal(s): A1c <8% Last Collaborating Provider Visit: 03/08/[address] Anabel Blanchard is a 73 year old female presenting for follow up visit in person. Patient consents to pharmacy collaborative practice agreement. Last Pharmacy Visit: 02/04/24 - insulin glargine increased to 50 units Interim Events: - 02/16/24 A1c results - improvement from 9.7% to 8.3% - 03/08/24 PCP visit - insulin glargine increased to 55 units daily HPI: Reports doing well Confirmed Lantus was increased at last visit with Dr. Little Has had a lot of stress recently with family stress States her copay for insulin is only $35/month Current DM Medications: Insulin glargine (Lantus) 55 units once daily Previously Trialed DM Meds: Trulicity - GI upset Jardiance - unable to tolerate Glimepiride Metformin IR/ER- GI intolerance Diet Denies any recent changes GLYCEMIC CONTROL: Glucometer present at visit: BG log present Hypoglycemia: No SMBGS (Fingersticks) Date Fasting AM 05/05 164 9/17 133 9/16 192 9/15 113 9/14 136 9/13 171 9/12 110 9/11 125 9/10 133 9/7 159 9/6 143 9/4 137 9/3 180 AVG 146 Had a couple readings in the 200s, but likely due to excess stress Past medical history reviewed. ALLERGIES Allergen Reactions Benadryl [Diphenhyd* Caffeine Mental Status Change Compazine [Prochlor* Imipramine Mental Status Change Tcn [Tetracyclines] GI Upset Trulicity [Dulaglut* Mental Status Change Current Outpatient Medications Medication Sig Dispense Refill acetaminophen (TYLENOL EXTRA STRENGTH) 500 mg tablet Take 2 tablets by mouth once daily. insulin glargine 100 unit/mL (3 mL) Inject 55 Units subcutaneously daily at bedtime. 15 mL 11 LORazepam (ATIVAN) 1 mg tablet Take 1 tablet by mouth three times a day as needed for anxiety for up to 90 days. 90 tablet 2 clobetasol (TEMOVATE) 0.05 % cream Apply to affected area two times a day. 15 g 2 Insulin Upatoi, Disposable, (BD ULTRA-FINE HEAVEN PEN NEEDLE) 32 gauge x 5/32 Use one needle for each dose. 1/day. 30 Each 11 No current facility-administered medications for this visit. Pill bottles are not present. Adherence: denies missed doses. Rx coverage: Payor: HUMANA MEDICARE / Plan: [employer] MEDICARE PPO / Product Type: PPO / Medications affordable? Yes PHARMACOTHERAPY PREVENTATIVE MEDS: On SUNSHINE/ARB: No On Statin: No On ASA: No EXAM: There were no vitals taken for this visit. Last 3 Encounter BP Readings: Date: BP: 03/08/2024 168/78[rechecked at end of visit[ 12/03/2023 168/72 08/28/2023 170/88 Wt: 92 kg (202 lb 14.4 oz) BMI: 35.94 kg/(m2) LABS: Lab Results Component Value Date HBA1C 8.3 02/16/2024 HBA1C 9.7 11/19/2023 HBA1C 12.0 08/18/2023 HBA1C 12.0 03/18/2021 HBA1C 11.7 11/22/2020 HBA1C 11.2 08/14/2020 Glucose 157 02/16/2024 BUN 18 02/16/2024 Creatinine 0.65 02/16/2024 Sodium 137 02/16/2024 Potassium 4.5 02/16/2024 Chloride 102 02/16/2024 CO2 25 02/16/2024 Protein, Total 7.3 02/16/2024 Albumin 3.9 02/16/2024 Calcium 9.1 02/16/2024 Alkaline Phosphatase 73 02/16/2024 Bilirubin, Total 0.6 02/16/2024 AST 20 02/16/2024 ALT 16 02/16/2024 Lab Results Component Value Date CHOL 218 02/16/2024 CHOL 225 03/18/2021 LDL 144 02/16/2024 LDL 153 03/18/2021 HDL 48 02/16/2024 HDL 44 03/18/2021 TG 129 02/16/2024 TG 138 03/18/2021 Albumin/Creat Ratio (mg/g) Date Value 11/19/2023 98 (H) eGFR-All Other Races (.) Date Value 03/18/2021 >60 Estimated Glomerular Filtration Rate (mL/min/1.73m?) Date Value 02/16/2024 94 ASSESSMENT/PLAN: 1. Uncontrolled type 2 diabetes mellitus with hyperglycemia (HCC) - ICD9: 250.02, ICD10: E11.65 - Improving control - Continue current medications - Blood glucose monitoring on a once daily schedule - Counseled on healthy diet and regular exercise - Follow up in 2 months, sooner should any other issues arise. - Due for A1c ~05/18/24 (already ordered) Follow Up: Next PCP visit: 06/10/24 Next PharmD visit: 06/30/24 Darcy Palma PharmD, BCACP Primary Care Clinical Associate Dean Of Women I spent a total of 20 minutes on the date of the service which included preparing to see the patient, [id number] patient care, completing clinical documentation, and counseling and educating the patient/family/caregiv er. Darcy Palma [facility] 05/05/2024 9:14 AM Signed Continue Lantus 55 units once daily Allergies As of Date: 05/05/2024 (more content not included)... Normal [facility] ([id number]) 1950 F Date Time Provider Department [facility]/11[facility] your visit today, we recorded the following information about you: Krysta Oliva MA 04/11/2024 1:37 PM Signed Pt had outside imaging done from [facility] for Mammogram. Please review. RADHA Greene Mark D, MD 04/12/2024 9:11 AM Signed Mammogram is normal; repeat in one year MD Jonathan Harkins Jacqueline, LPN 04/12/2024 9:19 AM Signed [employer] message sent. Allergies As of Date: 04/11/2024 Noted Allergy Reaction BENADRYL (DIPHENHYDRAMINE HCL) 07/17/2005 CAFFEINE 08/14/2005 1 - Mental Status Change COMPAZINE (PROCHLORPERAZINE EDISY*07/17/2005 IMIPRAMINE 08/14/2005 1 - Mental Status Change TCN (TETRACYCLINES) 08/14/2005 8 - GI Upset TRULICITY (DULAGLUTIDE) 10/21/2022 1 - Mental Status Change Date Reviewed: 03/08/2024 Reviewed by: Santa Herrera MA - Fully Assessed Reason for Visit: Results [95] Prescriptions as of 04/12/2024 - acetaminophen (TYLENOL EXTRA STRENGTH) 500 mg tablet Take 2 tablets by mouth once daily. - insulin glargine 100 unit/mL (3 mL) Inject 55 Units subcutaneously daily at bedtime. - LORazepam (ATIVAN) 1 mg tablet Take 1 tablet by mouth three times a day as needed for anxiety for up to 90 days. - clobetasol (TEMOVATE) 0.05 % cream Apply to affected area two times a day. - Insulin Upatoi, Disposable, (BD ULTRA-FINE HEAVEN PEN NEEDLE) 32 gauge x Use one needle for each dose. 1/day. Meds Comments as of 05/17/2020: Uses PRN Tylenol. Problem List As Of Date 04/11/2024 Noted Resolved ESOPHAGEAL REFLUX [K21.9] CHRONIC RHINITIS [J31.0] 09/12/2005 DYSMETABOLIC SYNDROME X [E88.810] 09/12/2005 09/02/2007 Mixed hyperlipidemia [E78.2] Other abnormal glucose [R73.09] 08/28/2016 ABNORMAL PAP SMEAR OF CERVIX NEC AND HPV [R89.6]09/02/2007 Essential hypertension, benign [I10] 09/02/2007 06/30/2012 Nonspecific abnormal results of thyroid functio*10/05/2007 08/28/2016 Elevated BP [QXW7608] 06/30/2012 08/28/2016 Type 2 diabetes mellitus with hyperglycemia (HC*05/26/2023 Anxiety and depression [F41.9, F32.A] 08/28/2016 Essential hypertension [I10] 08/28/2016 History of stroke [Z86.73] 12/02/2021 Non-compliance [Z91.199] 12/03/2021 Type 2 diabetes mellitus with diabetic neuropat*10/21/2022 Type 2 diabetes mellitus with peripheral vascul*12/02/2021 Current use of insulin (HCC) [Z79.4] 05/26/2023 Major depressive disorder, recurrent, mild (HCC*08/28/2023 Severe obesity (BMI 35.0-39.9) with comorbidity*08/28/2023 12/03/2023 Encounter Status:Closed by DELMIS JACKSON on 04/12/24 Normal [facility] SCRN MAMM (CAD)W/JONATAN Thompson n 04-11-2024 SCRN MAMM (CAD)W/JONATAN [facility] [address] [place] [address] SCRN MAMM (CAD)W/JONATAN HOLLIDAY MR#: [id number] Acct: [id number] Name: LOMAYA SUE Rep #: [id number] : 1950 F 73 From: Rupesh caldwell MD PCP: Dr. Janet Little MD Status: [facility] Study: SCRN MAMM (CAD)W/JONATAN BILAT Date of Exam: 03/18 02/07 Exam# [id number] Ordering Dr: Janet Little MD [id number] MAMMOGRAPHY - BILATERAL SCREENING REASON FOR EXAM: Female, 73 years old. Routine annual screening examination. PERTINENT HISTORY: Unknown. TECHNIQUE: Digital bilateral breast jonatan (3D mammographic acquisition) in the CC and MLO projections. 2-D mediolateral oblique (MLO) and craniocaudad (CC) views of both breasts were obtained. CAD: Full Field Digital Mammography with Computer Added Detection was performed. COMPARISON: Comparison is made with prior study dated April 04, 2021 August 14, 2020. FINDINGS: Breast Composition: There are scattered areas of fibroglandular density. There are no dominant masses or suspicious calcifications. No other significant abnormalities are identified. There has been no significant change since the prior study. BI/SCRN MAMM (CAD)W/JONATAN BILAT IMPRESSION: Stable bilateral screening mammogram. Yearly follow-up mammogram recommended. (A) ASSESSMENT CATEGORY: BIRADS Category 1: Negative. A letter regarding these results will be sent to the patient by the facility within 30 days. Approximately 10% of breast cancers are not detected by mammography. A normal mammogram should not delay biopsy of a clinically suspicious abnormality. [id number] Electronically Signed: Rupesh Morris MD at 10:28 EDT , CC: Dr. Janet Little MD Resident Intern: Signed [facility] 04-04-2024 [facility] Telephone (FAMPWS) MAYA BLANCHARD ([id number]) 1950 F Date Time Provider Department 04/04/24 [facility] During your visit today, we recorded the following information about you: Paulina CaridadEILEEN 04/04/2024 1:55 PM Signed Patient calling she had her first PT session at [facility] and was told to call her PCP to notify him, she has been having incontinence of her bladder and her bowels for few years. PT person told her may be caused from her back. Patient said she wears depends all the time. She has never mentioned this issue to her PCP at all before. Patient said she is able to void at times but has urgency and also with her bowels. Allergies As of Date: 04/04/2024 Noted Allergy Reaction BENADRYL (DIPHENHYDRAMINE HCL) 07/17/2005 CAFFEINE 08/14/2005 1 - Mental Status Change COMPAZINE (PROCHLORPERAZINE EDISY*07/17/2005 IMIPRAMINE 08/14/2005 1 - Mental Status Change TCN (TETRACYCLINES) 08/14/2005 8 - GI Upset TRULICITY (DULAGLUTIDE) 10/21/2022 1 - Mental Status Change Date Reviewed: 03/08/2024 Reviewed by: Santa Herrera MA - Fully Assessed Reason for Visit: new information [Other] Prescriptions as of 04/20/2024 - acetaminophen (TYLENOL EXTRA STRENGTH) 500 mg tablet Take 2 tablets by mouth once daily. - insulin glargine 100 unit/mL (3 mL) Inject 55 Units subcutaneously daily at bedtime. - LORazepam (ATIVAN) 1 mg tablet Take 1 tablet by mouth three times a day as needed for anxiety for up to 90 days. - clobetasol (TEMOVATE) 0.05 % cream Apply to affected area two times a day. - Insulin Upatoi, Disposable, (BD ULTRA-FINE HEAVEN PEN NEEDLE) 32 gauge x Use one needle for each dose. 1/day. Meds Comments as of 05/17/2020: Uses PRN Tylenol. Problem List As Of Date 04/04/2024 Noted Resolved ESOPHAGEAL REFLUX [K21.9] CHRONIC RHINITIS [J31.0] 09/12/2005 DYSMETABOLIC SYNDROME X [E88.810] 09/12/2005 09/02/2007 Mixed hyperlipidemia [E78.2] Other abnormal glucose [R73.09] 08/28/2016 ABNORMAL PAP SMEAR OF CERVIX NEC AND HPV [R89.6]09/02/2007 Essential hypertension, benign [I10] 09/02/2007 06/30/2012 Nonspecific abnormal results of thyroid functio*10/05/2007 08/28/2016 Elevated BP [GSL9416] 06/30/2012 08/28/2016 Type 2 diabetes mellitus with hyperglycemia (HC*05/26/2023 Anxiety and depression [F41.9, F32.A] 08/28/2016 Essential hypertension [I10] 08/28/2016 History of stroke [Z86.73] 12/02/2021 Non-compliance [Z91.199] 12/03/2021 Type 2 diabetes mellitus with diabetic neuropat*10/21/2022 Type 2 diabetes mellitus with peripheral vascul*12/02/2021 Current use of insulin (HCC) [Z79.4] 05/26/2023 Major depressive disorder, recurrent, mild (HCC*08/28/2023 Severe obesity (BMI 35.0-39.9) with comorbidity*08/28/2023 12/03/2023 Encounter Status:Closed by CARIDAD GALLARDO on 04/20/24 Normal [facility] Inital Evaluation (1) - PTon 04-04-2024 Inital Evaluation (1) - PT [facility] [address] [place] [address]. [address] [place] [address] / REHABILITATION SERVICES INITIAL EVALUATION MR#: [id number] Acct: [id number] Name: MAYA BLANCHARD Rep #: [id number] : 1950 73 From: Gayle Clark PT, Cert. MDT Referring Dr.: Dr. Luis Hernandez DO Status: R EG RCR Insurance: [employer] MEDICARE PPO SELF PAY INSURANCE Patient's Visit Information Visit Information Visit Information: MAYA BLANCHARD is a 73 year old F referred to Physical Therapy by Dr. Luis Hernandez DO with a diagnosis of SCIATICA AND YAHIR KNEE OA. Date of Evaluation: 04/04/24 Physical Therapist: Gayle Clark, PT, Cert MDT Visit Plan Frequency: 2-3x /Week Duration: 6-8 WKS Plan: POSTURE CORRECTION/STRENGTHENI NG, INSTRUCTION IN APPROPRIATE BODY MECHANICS AND ACTIVITY MODIFICATIONS. DLS STARTING WITH A NEUTRAL SPINE PROGRESSING ROM TOLERATED. YAHIR LE ROM, STRETCHING AND STRENGTHENING. HEP INSTRUCTION. 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 Present symptoms: LOW BACK PAIN AND YAHIR LE PAIN INCLUDING THIGHS, KNEES, CALVES, ANKLES AND FEET. DENIES LE NUMBESS AND TINGLING. Present since: CHRONIC Pain Scale: WORST 8/10, LEAST 0/10 Currently: 5/10 Is it getting better, worse or staying the same: GETTING BETTER Commenced as a result of: NO APPARENT REASON Worse: WALKING, STIFF IN THE MORNING, STEPS. Better: SITTING DOWN EASES IT, TYLONOL, KNEE INJECTIONS SEEM TO HAVE HELPED SOME (REC'D INJECTIONS YAHIR KNEES: 02/26/24, 03/04/24, 03/11/24) Disturbed sleep: YES. DIFFICULT TO FALL ASLEEP Previous history/Previous treatment: NO BACK INJECTIONS. NO BACK OR KNEE SURGERY. NO PT. H/O SOME CHIROPRACTIC FOR BACK BUT GOT TO THE POINT IT WASN'T HELPING. Treatment this episode: KNEE INJECTIONS. Coughing/sneezing/stra ining: NEGATIVE FOR PAIN Gait: INDEP WITHOUT AD. DENIES FALLS Bowel or Bladder Dysfunction: WEARING DEPENDS - FOR MORE THAN A YEAR FOR BLADDER AND BOWELS. USUALLY MAKES IT TO THE BATHROOM IN TIME. DID NOT MAKE IT TO THE BATHROOM IN TIME TWICE LAST WEEK. PATIENT IS NOT SURE IF DR. LITTLE KNOW. THIS PT INSTRUCTED PATIENT TO MAKE SURE DR. LITTLE IS AWARE. PATIENT AGREED. Accidents: NO Unexplained weight loss: NO Imaging: RECENT IMAGING: MILD R KNEE OA AND MOD L KNEE OA, There is multi-level degenerative disc disease with multi-level disc space narrowing. PMH/Recent major surgery: 4 MINI STROKES. PTSD FROM TRAUMA. 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 BLURRED VISION R EYE. H/O SCIATICA DOWN YAHIR LE'S. Objective Objective: Sitting/Standing Posture: ANTERIOR PELVIC TILT. NO RELEVANT LATERAL SHIFT. Other Observations: INDEP TRANSFER SIT TO STAND WITHOUT UE ASSIST. INDEP GAIT INTO PT WITH DECREASED CADANCE, WIDE BASE OF SUPPORT, TOEING OUT BUT NO LOB. SHORT YAHIR STRIDE LENGTH. Sensory deficit: YAHIR LE LIGHT TOUCH SENSATION GROSSLY INTACT AND SYMMETRICAL ROM deficit: R KNEE 0-0-119, L KNEE 0-0-114 (SUPINE W/HEEL SLIDE) Motor deficit: YAHIR LE'S GROSSLY 5/5 WITH MMT'ING Reflexes: UNABLE TO ELICIT YAHIR LE DTR'S. Dural Signs: NEGATIVE YAHIR LE'S Lumbar mvmt loss: flex - NIL - INCREASES BACK AND YAHIR LE'S - WORSE ext - JADEN - NE R SG - JADEN - NE L SG - JADEN - INCREASES YAHIR SIDES AND BACK - WORSE Core strength: POOR Palpation: NO ACUTE LUMBAR TENDERNESS. YAHIR GREATER TROCH AND LATERAL THIGH AND CALF TENDERNESS. GIRTH MEASUREMENTS: JT LINE R KNEE 46 CM, L 49.5 CM. 6 DIST TO PATELLA R 40.5 CM, L 43 CM. Balance/Special Test Scores Oswestry Low Back Score: 17 Goals Goal 1:: DECREASE C/O LOW BACK AND YAHIR LE PAIN BY AT LEAST 50% TO EASE ADL'S Goal Time Frame: 6-8 Weeks Goal 2:: PATIENT WILL BE ABLE TO WALK FOR 20 MIN WITHOUT INCREASED BACK/KNEE SYMPTOMS/NEEDING TO SIT DOWN, FOR INCREASED ADL TOLERANCE. Goal Time Frame: 6-8 Weeks Goal 3:: PATIENT WILL HAVE INCREASED YAHIR KNEE ROM TO AT LEAST 0-120 DEG FLEXION. Goal Time Frame: 6-8 Weeks Goal 4:: PATIENT WILL BE ABLE TO NEGOTIATE STEPS WITH 1 HR WITH RECIPROCAL PATTERN WITHOUT LIMITATIONS. Goal Time Frame: 6-8 Weeks Goal 5:: PATIENT WILL HAVE INCREASED PAINFREE LUMBAR ROM ALL PLANES TO EASE ADL'S. Goal Time Frame: 6-8 Weeks Goal 6:: PATIENT WILL BE INDEP WITH A HEP FOR CONTINUED IMPROVEMENT ONCE FORMAL PHYSICAL THERAPY CONCLUDES Goal Time Frame: 6-8 Weeks Rehabilitation Potential Physical Therapy Diagnosis: CORE AND KNEE STIFFNESS, TIME AND DISTANCE LIMITED GAIT, CORE WEAKNESS. Rehabilitation Potential: Good Anticipated Interventions Patient/Client Instruction: Educate patient on: Condition, Plan of Care and Risk Factors For the Purpose of:: To improve self management Therapeutic Exercise to Include: Strength training, Body mechanics, Postural training, Flexibilty training, Gait and locomotor training, Neuromotor development, In an aquatic setting and Dynamic L (more content not included)... Normal [facility] Orthopedic Visit Reporton Orthopedic Visit Report [facility] [address] [place] [address] OFFICE VISIT Date of Service: 03/11/24 MR#: [id number] Acct: [id number] Name: MAYA BLANCHARD Rep #: [id number] : 1950 Provider: Dr. Luis padilla DO Age/Sex: 73/F [place] [facility] Status: Signed Intake Vital Signs 12/18/23 09:24 Height 5 ft 3 in Intake Visit Reasons: BILATERAL KNEES Chief Complaint: Bilateral knee pain Accompanied by: Is patient in pain?: No Allergies caffeine Adverse Reaction (Verified 03/11/24 09:58) Other diphenhydramine (From Benadryl) Adverse Reaction (Verified 03/11/24 09:58) PT UNSURE OF REACTION prochlorperazine (From Compazine) Adverse Reaction (Verified 03/11/24 09:58) Other Medications ???Medication ???Instructions ???Recorded ???Confirmed ???Type insulin glargine 100 unit/mL (3 36 unit subcut DAILY 12/18/23 03/11/24 History mL) subcutaneous pen (Lantus Solostar U-100 Insulin) lorazepam 0.5 mg tablet 0.5 mg PO TID Anxiety 12/18/23 03/11/24 History Have you fallen in the past year?: No PFSH Medical History Stroke/cerebrovascular accident Diabetes Surgical History Hx of cholecystectomy H/O abdominal hysterectomy Social History household members: spouse Smoking Status: Never smoker HPI BILATERAL KNEES Details: This documentation accurately reflects the service provided and the decisions made by me, Dr. Luis Hernandez, DO 03/11/24 0806. Part of today???s visit was documented by [ ], acting as scribe. MAYA BLANCHARD is a 73 year old F here today for 3rd Bilateral Supartz injections. Patient has had no reactions to the other injection. Patient states she is unsure if the injections are helping her. She complains from her hips down to her ankles of pain. She has not started physical therapy yet as she wanted to wait till after her injections were completed Ortho Exam General General: Yes no acute distress and Yes well groomed Neurologic: Yes alert and Yes oriented x3 Psychologic: Yes reasonable and appropriate Right Knee Skin/Wound: Yes CDI, No erythema, No ecchymosis and Yes swelling (mild swelling in lower leg) Knee ROM: No ROM-Extension -20 to 0 and No ROM-Flexion 0-140 Examination: Yes Med jt line tenderness, Yes Crepitus, No Pain with extention and No Joanna's Test Stability: NML: Anterior Drawer, NML: Posterior Drawer, NML: Valgus 0, NML: Valgus 30, NML: Varus 0 and NML: Varus 30 Patella Translation: 1 KNEE: crepitation with patellar grind full EXT 115 FLEX pain up in lateral hip/thigh lipoma present on lateral thigh Left Knee Skin/Wound: Yes CDI, No ecchymosis, No erythema and Yes swelling (mild swelling down into leg) Homans Sign: No Knee ROM: No ROM-Extension -20 to 0 and No ROM-Flexion 0-140 Examination: Yes med jt line tenderness, No Lat jt line tenderness and No Joanna's Test Stability: NML: Anterior Drawer, NML: Posterior Drawer, NML: Valgus 0, NML: Valgus 30, NML: Varus 0 and NML: Varus 30 Patella Translation: 1 KNEE: full EXT 118 FLEX mild swelling in legs no joint effusion small Mills's Cyst - non-tender soreness in ankles 2/4 pedal pulses medial joint line tenderness mild pes tenderness trochanteric bursal tenderness nerve irritation/sciatica Office Procedures Ortho Injections Injections Yes Knee Bilateral Is this patient provided medication?: Yes Details: Obtained consent for injection. Under sterile conditions, injected the patients Bilateral knees with 2.5ml of Supartz in each knee 3rd injection. The patient tolerated the injection well without any noted complication. Patient should call our office if redness develops, pain worsens or if they have any concerns. Office Meds Supartz FX 10 mg/mL intra-articular syringe Performing Provider: Luis Hernandez DO Performing Location: [facility] Administered by: Luis Hernandez DO on 03/11/24 10:02 Dose Route Admin Location Dispensed Lot Number Expiration Date ND Man ufacturer 25 mg intra-articular Yahir knee 2.5 mL [id number] 01/14/27 [address]-4 [employer] Supplemental Info 12/18/2023 x-ray lumbar spine: Diffuse demineralization multilevel endplate spondylosis multilevel degenerative disc disease 12/18/23 x-ray right knee: mild trochlear spurring mild spurring noted on the medial femoral condyle 12/18/23 x-ray left knee: Moderate to severe medial joint space narrowing on notch view moderate trochlear spurring, Coding Level of Care Code Attention Delmar Diagnoses Primary osteoarthritis of both knees M17.0 Osteoarthritis type: primary Trochanteric bursit (more content not included)... Normal [facility] Orthopedic Visit Reporton Orthopedic Visit Report [facility] [address] [place] [address] OFFICE VISIT Date of Service: 03/04/24 MR#: [id number] Acct: [id number] Name: MAYA BLANCHARD Rep #: [id number] : 1950 Provider: Dr. Luis padilla DO Age/Sex: 73/F [place] [facility] Status: Signed Intake Vital Signs 12/18/23 09:24 Height 5 ft 3 in Weight: 197 lb 8 oz BMI 34.9 Intake Visit Reasons: BILATERAL KNEES Chief Complaint: Bilateral knee pain Accompanied by: Self Is patient in pain?: Yes Pain scale (1-10): 6 Allergies caffeine Adverse Reaction (Verified 03/04/24 09:53) Other diphenhydramine (From Benadryl) Adverse Reaction (Verified 03/04/24 09:53) PT UNSURE OF REACTION prochlorperazine (From Compazine) Adverse Reaction (Verified 03/04/24 09:53) Other Medications ???Medication ???Instructions ???Recorded ???Confirmed ???Type insulin glargine 100 unit/mL (3 36 unit subcut DAILY 12/18/23 03/04/24 History mL) subcutaneous pen (Lantus Solostar U-100 Insulin) lorazepam 0.5 mg tablet 0.5 mg PO TID Anxiety 12/18/23 03/04/24 History Have you fallen in the past year?: No PFSH Medical History Stroke/cerebrovascular accident Diabetes Surgical History Hx of cholecystectomy H/O abdominal hysterectomy Social History household members: spouse Smoking Status: Never smoker HPI BILATERAL KNEES Details: This documentation accurately reflects the service provided and the decisions made by me, Dr. Luis Hernandez, DO 03/04/24918. Part of today???s visit was documented by [ ], acting as scribe. MAYA BLANCHARD is a 73 year old F here today for 2nd Bilateral Supartz injection. Patient states no side effect to the first injection. Ortho Exam General General: Yes no acute distress and Yes well groomed Neurologic: Yes alert and Yes oriented x3 Psychologic: Yes reasonable and appropriate Right Knee Skin/Wound: Yes CDI, No erythema, No ecchymosis and Yes swelling (mild swelling in lower leg) Knee ROM: No ROM-Extension -20 to 0 and No ROM-Flexion 0-140 Examination: Yes Med jt line tenderness, Yes Crepitus, No Pain with extention and No Joanna's Test Stability: NML: Anterior Drawer, NML: Posterior Drawer, NML: Valgus 0, NML: Valgus 30, NML: Varus 0 and NML: Varus 30 Patella Translation: 1 KNEE: crepitation with patellar grind full EXT 115 FLEX pain up in lateral hip/thigh lipoma present on lateral thigh Left Knee Skin/Wound: Yes CDI, No ecchymosis, No erythema and Yes swelling (mild swelling down into leg) Homans Sign: No Knee ROM: No ROM-Extension -20 to 0 and No ROM-Flexion 0-140 Examination: Yes med jt line tenderness, No Lat jt line tenderness and No Joanna's Test Stability: NML: Anterior Drawer, NML: Posterior Drawer, NML: Valgus 0, NML: Valgus 30, NML: Varus 0 and NML: Varus 30 Patella Translation: 1 KNEE: full EXT 118 FLEX mild swelling in legs no joint effusion small Mills's Cyst - non-tender soreness in ankles 2/4 pedal pulses medial joint line tenderness mild pes tenderness trochanteric bursal tenderness nerve irritation/sciatica Office Procedures Ortho Injections Injections Yes Knee Bilateral Is this Buy Bill?: Yes Details: Obtained consent for injection. Under sterile conditions, injected the patients Bilateral knees with 2nd Supartz injection with 2.5ml to each knee. The patient tolerated the injection well without any noted complication. Patient should call our office if redness develops, pain worsens or if they have any concerns. Office Meds Supartz FX 10 mg/mL intra-articular syringe Performing Provider: Luis Hernandez DO Performing Location: [facility] Administered by: Luis Hernandez DO on 03/04/24 09:57 Dose Route Admin Location Dispensed Lot Number Expiration Date NDC Man ufacturer 50 mg intra-articular Bilateral knees 5 mL [id number] 01/14/27 [address]-6 [employer] Supplemental Info 12/18/23 x-ray right knee: mild trochlear spurring mild spurring noted on the medial femoral condyle 12/18/23 x-ray left knee: Moderate to severe medial joint space narrowing on notch view moderate trochlear spurring, Coding Level of Care Code Attention Delmar Diagnoses Primary osteoarthritis of both knees M17.0 Osteoarthritis type: primary 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 Normal [facility] Orthopedic Visit Reporton Orthopedic Visit Report [facility] [address] [place] [address] [address] [place] [address] OFFICE VISIT Date of Service: 02/26/24 MR#: [id number] Acct: [id number] Name: MAYA BLANCHARD Rep #: [id number] : 1950 Provider: Dr. Luis padilla DO Age/Sex: 73/F [place] [facility] Status: Signed Intake Vital Signs 12/18/23 09:24 Height 5 ft 3 in Weight: 197 lb 8 oz BMI 34.9 Intake Visit Reasons: BILATERAL KNEES Chief Complaint: Bilateral knee pain Accompanied by: Allergies caffeine Adverse Reaction (Verified 12/18/23 09:26) Other diphenhydramine (From Benadryl) Adverse Reaction (Verified 12/18/23 09:26) PT UNSURE OF REACTION prochlorperazine (From Compazine) Adverse Reaction (Verified 12/18/23 09:26) Other Medications ???Medication ???Instructions ???Recorded ???Confirmed ???Type insulin glargine 100 unit/mL (3 36 unit subcut DAILY 12/18/23 02/26/24 History mL) subcutaneous pen (Lantus Solostar U-100 Insulin) lorazepam 0.5 mg tablet 0.5 mg PO TID Anxiety 12/18/23 02/26/24 History Have you fallen in the past year?: No PFSH Medical History Stroke/cerebrovascular accident Diabetes Surgical History Hx of cholecystectomy H/O abdominal hysterectomy Social History household members: spouse Smoking Status: Never smoker HPI BILATERAL KNEES Details: This documentation accurately reflects the service provided and the decisions made by me, Dr. Luis Hernandez, DO 02/26/24 0717. Part of today???s visit was documented by Shruthi NATION, acting as scribe. MAYA BLANCHARD is a 73 year old F here today for 1st supartz injection for BL knee. Ortho Exam General General: Yes no acute distress and Yes well groomed Neurologic: Yes alert and Yes oriented x3 Psychologic: Yes reasonable and appropriate Right Knee Skin/Wound: Yes CDI, No erythema, No ecchymosis and Yes swelling (mild swelling in lower leg) Knee ROM: No ROM-Extension -20 to 0 and No ROM-Flexion 0-140 Examination: Yes Med jt line tenderness, Yes Crepitus, No Pain with extention and No Joanna's Test Stability: NML: Anterior Drawer, NML: Posterior Drawer, NML: Valgus 0, NML: Valgus 30, NML: Varus 0 and NML: Varus 30 Patella Translation: 1 KNEE: crepitation with patellar grind full EXT 115 FLEX pain up in lateral hip/thigh lipoma present on lateral thigh Left Knee Skin/Wound: Yes CDI, No ecchymosis, No erythema and Yes swelling (mild swelling down into leg) Homans Sign: No Knee ROM: No ROM-Extension -20 to 0 and No ROM-Flexion 0-140 Examination: Yes med jt line tenderness, No Lat jt line tenderness and No Joanna's Test Stability: NML: Anterior Drawer, NML: Posterior Drawer, NML: Valgus 0, NML: Valgus 30, NML: Varus 0 and NML: Varus 30 Patella Translation: 1 KNEE: full EXT 118 FLEX mild swelling in legs no joint effusion small Mills's Cyst - non-tender soreness in ankles 2/4 pedal pulses medial joint line tenderness mild pes tenderness trochanteric bursal tenderness nerve irritation/sciatica Office Procedures Ortho Injections Injections Is this Buy Bill?: Yes Office Meds Supartz FX 10 mg/mL intra-articular syringe Performing Provider: Luis Hernandez DO Performing Location: [facility] Administered by: Luis Hernandez DO on 02/26/24 09:55 Dose Route Admin Location Dispensed Lot Number Expiration Date NDC Man ufacturer 25 mg intra-articular BL knee 2.5 mL [id number] 01/14/27 [address]-7 [employer] Comments: Obtained consent for injection. Under sterile conditions, injected the patients BL knee with 25mg/2.5mL of Supartz in each knee. The patient tolerated the injection well without any noted complication. Patient should call our office if redness develops, pain worsens or if they have any concerns Supplemental Info 12/18/23 x-ray right knee: mild trochlear spurring mild spurring noted on the medial femoral condyle 12/18/23 x-ray left knee: Moderate to severe medial joint space narrowing on notch view moderate trochlear spurring, Coding Level of Care Code Global Post Op Diagnoses Primary osteoarthritis of both knees M17.0 Osteoarthritis type: primary Assessment and Plan Assessment and Plan (1) Osteoarthritis of knees, bilateral: Status: Acute Qualifiers: Osteoarthritis type: primary Qualified Code(s): M17.0 - Bilateral primary osteoarthritis of knee Orders: Orders Supartz Injection Today M17.0 - Bilateral primary osteoarthritis of knee Plan Bilateral knee Supartz injections given today follow-up next week for next injection Clinical Quality Measures Falls Risk Screening/Assistive Dev (more content not included)... Normal [facility] Knee 4 or More Viewson 12-17 Knee 4 or More Views [facility] [address] [place] [address] Knee 4 or More Views MR#: [id number] Acct: [id number] Name: MAYA BLANCHARD Rep #: [id number] : 1950 F 73 From: Fernie Zuñiga MD PCP: Dr. Janet Little MD Status: DEP AMB Study: Knee 4 or More Views Date of Exam: 12/18/23 Exam# [id number] Ordering Dr: Luis Hernandez DO [id number] STUDY: X-RAY - LEFT KNEE REASON FOR EXAM: Female, 73 years old. Pain, decreased range of motion TECHNIQUE: 4 view(s) of the knee. COMPARISON: None. FINDINGS: Normal visualized distal femur. Normal visualized proximal tibia and fibula. Normal proximal tibiofibular articulation. There is moderate degenerative arthrosis of the medial femorotibial compartment with moderate joint space narrowing. Normal lateral femorotibial compartment. There is moderate degenerative arthrosis of the patellofemoral articulation. The soft tissue structures are unremarkable. RAD/Knee 4 or More Views IMPRESSION: Moderate medial and posterior patellar arthrosis No demonstrated fracture or joint effusion Patellar and tibial spurs Electronically Signed: Peter Zuñiga MD at 23:33 EDT , CC: Dr. Luis Hernandez DO; Dr. Janet Little MD Resident Intern: Signed Normal [facility] Knee 4 or More Views [facility] [address] [place] [address] Knee 4 or More Views MR#: [id number] Acct: [id number] Name: MAYA BLANCHARD Rep #: [id number] : 1950 F 73 From: Fernie Zuñiga MD PCP: Dr. Janet Little MD Status: DEP AMB Study: Knee 4 or More Views Date of Exam: 12/18/23 Exam# [id number] Ordering Dr: Luis Hernandez DO [id number] STUDY: X-RAY - RIGHT KNEE REASON FOR EXAM: Female, 73 years old. Pain, decreased range of motion TECHNIQUE: 4 view(s) of the knee. COMPARISON: None. FINDINGS: Normal visualized distal femur. Normal visualized proximal tibia and fibula. Normal proximal tibiofibular articulation. There is mild degenerative arthrosis of the medial femorotibial compartment. There is mild degenerative arthrosis of the lateral femorotibial compartment. There is mild degenerative arthrosis of the patellofemoral articulation. The soft tissue structures are unremarkable. RAD/Knee 4 or More Views IMPRESSION: Mild tricompartmental arthrosis Electronically Signed: Peter Zuñiga MD at 23:27 EDT , CC: Dr. Luis Hernandez DO; Dr. Janet Little MD Resident Intern: Signed Normal [facility] Lumbar Spine 2 or 3 Viewson 12-18-2023 Lumbar Spine 2 or 3 Views [facility] [address] [place] [address] Lumbar Spine 2 or 3 Views MR#: [id number] Acct: [id number] Name: MAYA BLANCHARD Rep #: [id number] : 1950 F 73 From: Fernie Zuñiga MD PCP: Dr. Janet Little MD Status: DEP AMB Study: Lumbar Spine 2 or 3 Views Date of Exam: Exam# [id number] Ordering Dr: Luis Hernandez DO [id number] STUDY: X-RAY - LUMBAR SPINE REASON FOR EXAM: Female, 73 years old. Pain TECHNIQUE: 2 view(s) of the lumbar spine were obtained. COMPARISON: None FINDINGS: Normal lumbar lordosis. There is no substantial scoliosis. There is a normal alignment of the vertebrae. There is diffuse demineralization with multi-level endplate spondylosis. There is multi-level degenerative disc disease with multi-level disc space narrowing. There is no demonstrated fracture. There is atherosclerotic calcification of the abdominal aorta without a demonstrated aneurysm. RAD/Lumbar Spine 2 or 3 Views IMPRESSION: Degenerative changes of the spine, as detailed above. Electronically Signed: Peter Zuñiga MD at 23:34 EDT , CC: Dr. Luis Hernandez DO; Dr. Janet Little MD Resident Intern: Signed Normal [facility] Orthopedic Visit Reporton Orthopedic Visit Report [facility] [address] [place] [address] [address] [place] [address] OFFICE VISIT Date of Service: 12/18/23 MR#: [id number] Acct: [id number] Name: MAYA BLANCHARD Rep #: [id number] : 1950 Provider: Dr. Luis padilla DO Age/Sex: 73/F [place] [facility] Status: Signed Intake Vital Signs 07/02/21 18:40 12/10/23 09:37 12/18/23 09:24 Height 5 ft 3 in 5 ft 3 in 5 ft 3 in Weight: 197 lb 8 oz BMI 34.9 Intake Visit Reasons: BILATERAL KNEES Chief Complaint: Bilateral knee pain Accompanied by: Is patient in pain?: Yes Pain scale (1-10): 8 Allergies caffeine Adverse Reaction (Verified 12/18/23 09:26) Other diphenhydramine [From Benadryl] Adverse Reaction (Verified 12/18/23 09:26) PT UNSURE OF REACTION prochlorperazine [From Compazine] Adverse Reaction (Verified 12/18/23 09:26) Other Medications insulin glargine 100 unit/mL (3 mL) subcutaneous pen (Lantus Solostar U-100 Insulin) 36 unit subcut DAILY 12/18/23 [History Confirmed 12/18/23] lorazepam 0.5 mg tablet 0.5 mg PO TID Anxiety 12/18/23 [History Confirmed 12/18/23] PFSH Medical History Diabetes Stroke/cerebrovascular accident Surgical History H/O abdominal hysterectomy Hx of cholecystectomy Social History (Updated 12/18/23 @ 09:42 by Brigida Monsalve) household members: spouse Smoking Status: Never smoker HPI BILATERAL KNEES Details: This documentation accurately reflects the service provided and the decisions made by me, Dr. Luis Hernandez DO 12/18/23 09. Part of today???s visit was documented by Brigida Su AT[employer], acting as scribe. MAYA BLANCHARD is a 73 year old F here today for bilateral knee pain. Patient states the left knee has been bothering her for years and is worse. She states the right knee has not been as long but still for a while. She states she saw another doctor at [facility] and they would not perform surgery on her due to her having diabetes her A1c was 12, now down to 9. Patient states she has burning in the anterior knee that goes down into the lower leg. She states the pain is then over the medial and lateral knees. She states all of her leg muscles are always sore and her calves feel like they are going to cramp up. She states she does have neuropathy in her toes. She states she does have sciatic pain as well which does bother her thigh musculature. She does have some numbness or tingling down her legs. She states she has recently noticed clicking in the left knee. She states she does ride a stationary bike at home to stay active. Patient denies any prior injuries or surgeries to the bilateral knees. Patient states she did have injections to the knees but it was a long time ago and she states they made her sugar really increase so she wasn't crazy about them and they did not give her any relief. Patient denies any physical therapy. Patient states she did try a chiropractor and they tried laser treatment therapy to the knees and she is unable to tell if that gave her relief or not. she also has b/l lateral hip pain. She does take Ibuprofen/Tylenol for the pain. Her last A1C was 9 Ortho Exam General General: Yes no acute distress and Yes well groomed Neurologic: Yes alert and Yes oriented x3 Psychologic: Yes reasonable and appropriate Right Knee Skin/Wound: Yes CDI, No erythema, No ecchymosis and Yes swelling (mild swelling in lower leg) Knee ROM: No ROM-Extension -20 to 0 and No ROM-Flexion 0-140 Examination: Yes Med jt line tenderness, Yes Crepitus, No Pain with extention and No Joanna's Test Stability: NML: Anterior Drawer, NML: Posterior Drawer, NML: Valgus 0, NML: Valgus 30, NML: Varus 0 and NML: Varus 30 Patella Translation: 1 KNEE: crepitation with patellar grind full EXT 115 FLEX pain up in lateral hip/thigh lipoma present on lateral thigh Left Knee Skin/Wound: Yes CDI, No ecchymosis, No erythema and Yes swelling (mild swelling down into leg) Homans Sign: No Knee ROM: No ROM-Extension -20 to 0 and No ROM-Flexion 0-140 Examination: Yes med jt line tenderness, No Lat jt line tenderness and No Joanna's Test Stability: NML: Anterior Drawer, NML: Posterior Drawer, NML: Valgus 0, NML: Valgus 30, NML: Varus 0 and NML: Varus 30 Patella Translation: 1 KNEE: full EXT 118 FLEX mild swelling in legs no joint effusion small Mills's Cyst - non-tender soreness in ankles 2/4 pedal pulses medial joint line tenderness mild pes tenderness trochanteric bursal tenderness nerve irritation/sciatica Supplemental Info 12/18/23 x-ray right knee: mild trochlear spurring mild spurring noted on the medial femoral condyle 12/18/23 x-ray left knee: Moderate to severe medial joint space narrowing (more content not included)... Normal [facility] UA DIP, URINE (POC)on 2022 BILIRUBIN UA (POCT) Negative Negative [facility] CLARITY UA (POCT) Cloudy [facility] COLOR UA (POCT) Yellow [facility] GLUCOSE UA (POCT) >=1000 Abnormal Negative mg/dL [facility] Hemoglobin Ql (U) Trace-intact Abnormal Negative [facility] KETONE UA (POCT) 15 mg/dL Abnormal Negative mg/dL [facility] LEUKOCYTES UA (POCT) Negative Negative [facility] NITRITE UA (POCT) Negative Negative [facility] PH UA (POCT) 5.0 4.5 - 8.0 [facility] Protein Ql (U) Negative Negative mg/dL [facility] SPECIFIC GRAVITY UA (POCT) 1.020 1.005 - 1.030 [facility] UROBILINOGEN UA (POCT) 0.2 E.U./dL Normal E.U./dL [facility] GLUCOSE, BLOOD (POC)on 01-22 Glucose [Mass/Vol] 282 mg/dL Abnormal 74 - 99 mg/dL [facility] UA DIP, URINE (POC)on 2022 BILIRUBIN UA (POCT) Negative Negative [facility] CLARITY UA (POCT) Slightly Cloudy Cl [facility] COLOR UA (POCT) Yellow [facility] GLUCOSE UA (POCT) 500 mg/dL Abnormal Negative mg/dL [facility] HEMOGLOBIN/BLOOD UA (POCT) Moderate Abnormal Negative [facility] KETONE UA (POCT) 15 mg/dL Abnormal Negative mg/dL [facility] LEUKOCYTES UA (POCT) Small Abnormal Negative [facility] NITRITE UA (POCT) Negative Negative [facility] PH UA (POCT) 5.0 4.5 - 8.0 [facility] Protein Ql (U) 30 mg/dL Abnormal Negative mg/dL [facility] SPECIFIC GRAVITY UA (POCT) >=1.030 1.005 - 1.030 [facility] UROBILINOGEN UA (POCT) 0.2 E.U./dL Normal E.U./dL [facility] Culture, urineOrdered By: Dr Jake Hampton on 08-31-2022 Bacteria identified Cx Nom (U) Escherichia coli [facility] UA DIP, URINE (POC)on 2021 BILIRUBIN UA (POCT) Small Abnormal Negative [facility] CLARITY UA (POCT) Clear [facility] COLOR UA (POCT) Other [facility] GLUCOSE UA (POCT) >=1000 Abnormal Negative mg/dL [facility] HEMOGLOBIN/BLOOD UA (POCT) Large Abnormal Negative [facility] KETONE UA (POCT) 15 mg/dL Abnormal Negative mg/dL [facility] LEUKOCYTES UA (POCT) Trace Abnormal Negative [facility] NITRITE UA (POCT) Positive Abnormal Negative [facility] PH UA (POCT) 5.0 4.5 - 8.0 [facility] Protein Ql (U) 100 mg/dL Abnormal Negative mg/dL [facility] SPECIFIC GRAVITY UA (POCT) 1.020 1.005 - 1.030 [facility] UROBILINOGEN UA (POCT) 1.0 E.U./dL Normal E.U./dL [facility] UA DIP, URINE (POC)on 2021 BILIRUBIN UA (POCT) Negative Negative [facility] CLARITY UA (POCT) Clear [facility] COLOR UA (POCT) Yellow [facility] GLUCOSE UA (POCT) >=1000 Abnormal Negative mg/dL [facility] HEMOGLOBIN/BLOOD UA (POCT) Large Abnormal Negative [facility] KETONE UA (POCT) 15 mg/dL Abnormal Negative mg/dL [facility] LEUKOCYTES UA (POCT) Trace Abnormal Negative [facility] NITRITE UA (POCT) Negative Negative [facility] PH UA (POCT) 5.0 4.5 - 8.0 [facility] Protein Ql (U) Negative Negative mg/dL [facility] SPECIFIC GRAVITY UA (POCT) 1.020 1.005 - 1.030 [facility] UROBILINOGEN UA (POCT) 0.2 E.U./dL Normal E.U./dL [facility] CREATININE BLDon 10-18-2021 Creatinine [Mass/Vol] 0.58 mg/dL 0.58 - 0.96 mg/dL [facility] Estimated Glomerular Filtration Rate 98 mL/min/1.73m >=60 mL/min/1.73m [facility] No Panel Informationon 10-18 [facility] Vital Signs Date Time Vital Sign Value Performing Clinician Facility 03-07-2025 09:51-0400 Diastolic blood pressure 80 mm[Hg] Janet Little MD Work Phone: [facility] Comment on above: rechecked 03-07-2025 09:51-0400 Systolic blood pressure 140 mm[Hg] Janet Little MD Work Phone: [facility] Comment on above: rechecked 03-07-2025 09:49-0400 Body mass index (BMI) [Ratio] 37.8 kg/m2 Janet Little MD [facility] [facility] 03[facility]25 09:49-0400 Body weight 96.8 kg Janet Little MD Work Phone: [facility] 03-07-2025 09:49-0400 Heart rate 88 /min Janet Little MD Work Phone: [facility] 03-07-2025 09:49-0400 Respiratory rate 16 /min Janet Little MD Work Phone: [facility] 02-13-2025 08:08-0400 Body mass index (BMI) [Ratio] 37.41 kg/m2 [facility] SALESPERSON [employer].TELEPHONE REPAIRER Work Phone: [facility] 02-13-2025 08:08-0400 Body temperature 98.1 [degF] [facility] SALESPERSON [employer]IST SUP[employer]IES.TELEPHONE REPAIRER Work Phone: [facility] 02-13-2025 08:08-0400 Body weight 95.8 kg Yusuf Miriyale [facility] SALESPERSON [employer]IST SUPPLIES.TELEPHONE REPAIRER Work Phone: [facility] 02-13-2025 08:08-0400 Diastolic blood pressure 88 mm[Hg] [facility] SALESPERSON [employer]IST SUP[employer]IES.TELEPHONE REPAIRER Work Phone: [facility] 02-13-2025 08:08-0400 Heart rate 90 /min [facility] SALESPERSON [employer] SU[employer]IES.TELEPHONE REPAIRER Work Phone: [facility] 02-13-2025 08:08-0400 Respiratory rate 20 /min [facility] SALESPERSON [employer]IST SUP[employer]IES.TELEPHONE REPAIRER Work Phone: [facility] 02-13-2025 08:08-0400 SaO2% (BldA) [Mass fraction] 94 % [facility] SALESPERSON [employer] SUP[employer]IES.TELEPHONE REPAIRER Work Phone: [facility] 02-13-2025 08:08-0400 Systolic blood pressure 140 mm[Hg] [facility] SALESPERSON [employer] SUP[employer]IES.TELEPHONE REPAIRER Work Phone: [facility] 10-31-2024 13:43-0400 Body mass index (BMI) [Ratio] 36.51 kg/m2 Janet Little MD Work Phone: [facility] 10-31-2024 13:43-0400 Body temperature 99 [degF] Janet Little MD Work Phone: [facility] 10-31-2024 13:43-0400 Body weight 93.5 kg Janet Little MD Work Phone: [facility] 10-31-2024 13:43-0400 Diastolic blood pressure 90 mm[Hg] Janet Little MD Work Phone: [facility] 10-31-2024 13:43-0400 Heart rate 98 /min Janet Little MD Work Phone: [facility] 10-31-2024 13:43-0400 Respiratory rate 18 /min Janet Little MD Work Phone: [facility] 10-31-2024 13:43-0400 Systolic blood pressure 160 mm[Hg] Janet Little MD Work Phone: [facility] 10-26-2024 09:30-0400 Body mass index (BMI) [Ratio] 37.26 kg/m2 Natacha Jackson APRN.TELEPHONE REPAIRER Work Phone: [facility] 10-26-2024 09:30-0400 Body temperature 98.1 [degF] Natacha Jackson APRN.TELEPHONE REPAIRER Work Phone: [facility] 10-26-2024 09:30-0400 Body weight 95.4 kg Natacha Jackson APRN.TELEPHONE REPAIRER Work Phone: [facility] 10-26-2024 09:30-0400 Diastolic blood pressure 80 mm[Hg] Natacha Jackson APRN.TELEPHONE REPAIRER Work Phone: [facility] 10-26-2024 09:30-0400 Heart rate 94 /min Natacha Jackson APRN.TELEPHONE REPAIRER Work Phone: [facility] 10-26-2024 09:30-0400 Respiratory rate 16 /min Natacha Jackson APRN.TELEPHONE REPAIRER Work Phone: [facility] 10-26-2024 09:30-0400 SaO2% (BldA) [Mass fraction] 93 % Natacha Jackson APRN.TELEPHONE REPAIRER Work Phone: [facility] 10-26-2024 09:30-0400 Systolic blood pressure 124 mm[Hg] Natacha Jackson APRN.TELEPHONE REPAIRER Work Phone: [facility] 09-06-2024 11:02-0500 Diastolic blood pressure 82 mm[Hg] Janet Little MD Work Phone: [facility] 09-06-2024 11:02-0500 Systolic blood pressure 146 mm[Hg] Janet Little MD Work Phone: [facility] 09-06-2024 10:36-0500 Body mass index (BMI) [Ratio] 37.22 kg/m2 Janet Little MD Work Phone: [facility] 09-06-2024 10:36-0500 Body weight 95.3 kg Janet Little MD Work Phone: [facility] 09-06-2024 10:36-0500 Heart rate 78 /min Janet Little MD Work Phone: [facility] 09-06-2024 10:36-0500 Respiratory rate 18 /min Janet Little MD Work Phone: [facility] 08-18-2024 12:44-0500 Body mass index (BMI) [Ratio] 37.33 kg/m2 Makeda Denis SALESPERSON [employer].TELEPHONE REPAIRER Work Phone: [facility] 08-18-2024 12:44-0500 Body temperature 98.4 [degF] Makeda Denis SALESPERSON [employer].TELEPHONE REPAIRER Work Phone: [facility] 08-18-2024 12:44-0500 Body weight 95.6 kg Makeda Denis SALESPERSON [employer].TELEPHONE REPAIRER Work Phone: [facility] 08-18-2024 12:44-0500 Diastolic blood pressure 90 mm[Hg] Makeda Denis SALESPERSON [employer].TELEPHONE REPAIRER Work Phone: [facility] 08-18-2024 12:44-0500 Heart rate 96 /min Makeda Denis SALESPERSON [employer].TELEPHONE REPAIRER Work Phone: [facility] 08-18-2024 12:44-0500 Respiratory rate 19 /min Makeda Denis SALESPERSON [employer].TELEPHONE REPAIRER Work Phone: [facility] 08-18-2024 12:44-0500 SaO2% (BldA) [Mass fraction] 95 % Makeda Denis SALESPERSON [employer] SUP[employer]IES.TELEPHONE REPAIRER Work Phone: [facility] 08-18-2024 12:44-0500 Systolic blood pressure 140 mm[Hg] Makeda Smithtriston VELASCO Work Phone: [facility] 06-10-2024 10:27-0400 Diastolic blood pressure 88 mm[Hg] Janet Little MD Work Phone: [facility] Comment on above: rechecked at end of visit 06-10-2024 10:27-0400 Systolic blood pressure 160 mm[Hg] Janet Little MD Work Phone: [facility] Comment on above: rechecked at end of visit 06-10-2024 09:59-0400 Body mass index (BMI) [Ratio] 35.97 kg/m2 Janet Little MD Work Phone: [facility] 06-10-2024 09:59-0400 Body weight 92.1 kg Janet Little MD Work Phone: [facility] 06-10-2024 09:59-0400 Heart rate 78 /min Janet Little MD Work Phone: [facility] 06-10-2024 09:59-0400 Respiratory rate 16 /min Janet Little MD Work Phone: [facility] 06-06-2024 09:09-0400 Body mass index (BMI) [Ratio] 35.77 kg/m2 Nabil Baldwin MD Work Phone: [facility] 06-06-2024 09:09-0400 Body temperature 97.2 [degF] Nabil Baldwin MD Work Phone: [facility] 06-06-2024 09:09-0400 Body weight 91.6 kg Nabil Baldwin MD Work Phone: [facility] 06-06-2024 09:09-0400 Diastolic blood pressure 80 mm[Hg] Nabil Baldwin MD Work Phone: [facility] 06-06-2024 09:09-0400 Heart rate 102 /min Nabil Baldwin MD Work Phone: [facility] 06-06-2024 09:09-0400 Respiratory rate 18 /min Nabil Baldwin MD Work Phone: [facility] 06-06-2024 09:09-0400 SaO2% (BldA) [Mass fraction] 95 % Nabil Baldwin MD Work Phone: [facility] 06-06-2024 09:09-0400 Systolic blood pressure 142 mm[Hg] Nabil Baldwin MD Work Phone: [facility] 05-27-2024 09:07-0400 Body mass index (BMI) [Ratio] 36.36 kg/m2 Jalyn Brigotti SALESPERSON [employer]IES.TELEPHONE REPAIRER Work Phone: [facility] 05-27-2024 09:07-0400 Body temperature 99.9 [degF] Jalyn Brigotti SALESPERSON [employer] SU[employer]IES.TELEPHONE REPAIRER Work Phone: [facility] 05-27-2024 09:07-0400 Body weight 93.1 kg Jalyn Brigotti SALESPERSON [employer]IST SUP[employer]IES.TELEPHONE REPAIRER Work Phone: [facility] 05-27-2024 09:07-0400 Diastolic blood pressure 72 mm[Hg] Jalyn Brigotti SALESPERSON [employer] SUP[employer]IES.TELEPHONE REPAIRER Work Phone: [facility] 05-27-2024 09:07-0400 Heart rate 98 /min Jalyn Brigotti SALESPERSON [employer]IST SUP[employer]IES.TELEPHONE REPAIRER Work Phone: [facility] 05-27-2024 09:07-0400 Respiratory rate 20 /min Jalyn Brigotti SALESPERSON [employer] SU[employer]IES.TELEPHONE REPAIRER Work Phone: [facility] 05-27-2024 09:07-0400 SaO2% (BldA) [Mass fraction] 95 % Jalyn Brigotti SALESPERSON [employer]IES.TELEPHONE REPAIRER Work Phone: [facility] 05-27-2024 09:07-0400 Systolic blood pressure 198 mm[Hg] Jalyn Brigotti SALESPERSON [employer]IST SUP[employer]IES.TELEPHONE REPAIRER Work Phone: [facility] 03-08-2024 09:27-0400 Diastolic blood pressure 78 mm[Hg] Janet Little MD Work Phone: [facility] Comment on above: rechecked at end of visit 03-08-2024 09:27-0400 Systolic blood pressure 168 mm[Hg] Janet Little MD Work Phone: [facility] Comment on above: rechecked at end of visit 03-08-2024 08:58-0400 Body mass index (BMI) [Ratio] 35.94 kg/m2 Janet Little MD Work Phone: [facility] 03-08-2024 08:58-0400 Body weight 92.03 kg Janet Little MD Work Phone: [facility] 03-08-2024 08:58-0400 Heart rate 90 /min Janet Little MD Work Phone: [facility] 03-08-2024 08:58-0400 Respiratory rate 18 /min Janet Little MD Work Phone: [facility] 12-03-2023 08:52-0400 Body weight 88.91 kg Janet Little MD Work Phone: [facility] 12-03-2023 08:52-0400 Diastolic blood pressure 72 mm[Hg] Janet Little MD Work Phone: [facility] 12-03-2023 08:52-0400 Heart rate 78 /min Janet Little MD Work Phone: [facility] 12-03-2023 08:52-0400 Respiratory rate 16 /min Janet Little MD Work Phone: [facility] 12-03-2023 08:52-0400 Systolic blood pressure 168 mm[Hg] Janet Little MD Work Phone: [facility] 05-26-2023 09:58-0400 Body weight 90.08 kg Janet Little MD Work Phone: [facility] 05-26-2023 09:58-0400 Diastolic blood pressure 70 mm[Hg] Janet Little MD Work Phone: [facility] 05-26-2023 09:58-0400 Heart rate 92 /min Janet Little MD Work Phone: [facility] 05-26-2023 09:58-0400 Respiratory rate 18 /min Janet Little MD Work Phone: [facility] 05-26-2023 09:58-0400 Systolic blood pressure 152 mm[Hg] Janet Little MD Work Phone: [facility] 04-01-2023 10:29-0400 Body temperature 98.6 [degF] Massiel Lilli SALESPERSON [employer]IES.TELEPHONE REPAIRER Work Phone: [facility] 04-01-2023 10:29-0400 Body weight 91.99 kg Massiel Lilli SALESPERSON FL[employer]IST SUPPLIES.TELEPHONE REPAIRER Work Phone: [facility] 04-01-2023 10:29-0400 Diastolic blood pressure 86 mm[Hg] Massiel Lilli SALESPERSON FL[employer]IST SUPPLIES.TELEPHONE REPAIRER Work Phone: [facility] 04-01-2023 10:29-0400 Heart rate 95 /min Massiel Lilli SALESPERSON FL[employer]IST SUPPLIES.TELEPHONE REPAIRER Work Phone: [facility] 04-01-2023 10:29-0400 Respiratory rate 20 /min Massiel Lilli SALESPERSON FL[employer]IST SUPPLIES.TELEPHONE REPAIRER Work Phone: [facility] 04-01-2023 10:29-0400 SaO2% (BldA) [Mass fraction] 95 % Massiel Lilli SALESPERSON [employer]IST SUP[employer]IES.TELEPHONE REPAIRER Work Phone: [facility] 04-01-2023 10:29-0400 Systolic blood pressure 160 mm[Hg] Massiel Lilli SALESPERSON FL[employer]IST SUPPLIES.TELEPHONE REPAIRER Work Phone: [facility] 01-29-2023 09:01-0400 Diastolic blood pressure 90 mm[Hg] Janet Little MD Work Phone: [facility] 01-29-2023 09:01-0400 Systolic blood pressure 146 mm[Hg] Janet Little MD Work Phone: [facility] 01-29-2023 08:58-0400 Body weight 89.81 kg Janet Little MD Work Phone: [facility] 01-29-2023 08:58-0400 Heart rate 84 /min Janet Little MD Work Phone: [facility] 01-29-2023 08:58-0400 Respiratory rate 16 /min Janet Littel MD Work Phone: [facility] 01-22-2023 09:59-0400 Body temperature 98.4 [degF] Makeda Denis SALESPERSON [employer]IES.TELEPHONE REPAIRER Work Phone: [facility] 01-22-2023 09:59-0400 Body weight 90.36 kg Makeda Denis SALESPERSON [employer]IST SUPPLIES.TELEPHONE REPAIRER Work Phone: [facility] 01-22-2023 09:59-0400 Diastolic blood pressure 84 mm[Hg] Makeda Denis SALESPERSON [employer] SUP[employer]IES.TELEPHONE REPAIRER Work Phone: [facility] 01-22-2023 09:59-0400 Heart rate 90 /min Makeda Denis SALESPERSON [employer] SUP[employer]IES.TELEPHONE REPAIRER Work Phone: [facility] 01-22-2023 09:59-0400 Respiratory rate 18 /min Makeda Denis SALESPERSON [employer] SUP[employer]IES.TELEPHONE REPAIRER Work Phone: [facility] 01-22-2023 09:59-0400 SaO2% (BldA) [Mass fraction] 96 % Makeda Denis SALESPERSON [employer]IES.TELEPHONE REPAIRER Work Phone: [facility] 01-22-2023 09:59-0400 Systolic blood pressure 146 mm[Hg] Makeda Denis SALESPERSON [employer] SUP[employer]IES.TELEPHONE REPAIRER Work Phone: [facility] 10-21-2022 09:08-0500 Body height 160 cm Janet Little MD Work Phone: [facility] 10-21-2022 09:08-0500 Body weight 88.45 kg Janet Little MD Work Phone: [facility] 10-21-2022 09:08-0500 Diastolic blood pressure 76 mm[Hg] Janet Little MD Work Phone: [facility] 10-21-2022 09:08-0500 Heart rate 72 /min Janet Little MD Work Phone: [facility] 10-21-2022 09:08-0500 Respiratory rate 16 /min Janet Little MD Work Phone: [facility] 10-21-2022 09:08-0500 Systolic blood pressure 130 mm[Hg] Janet Little MD Work Phone: [facility] 07-21-2022 08:06-0500 Body weight 89.58 kg Janet Little MD Work Phone: [facility] 07-21-2022 08:06-0500 Diastolic blood pressure 82 mm[Hg] Janet Little MD Work Phone: [facility] 07-21-2022 08:06-0500 Heart rate 74 /min Janet Little MD Work Phone: [facility] 07-21-2022 08:06-0500 Respiratory rate 16 /min Janet Little MD Work Phone: [facility] 07-21-2022 08:06-0500 Systolic blood pressure 142 mm[Hg] Janet Little MD Work Phone: [facility] 07-13-2022 09:36-0500 Body temperature 97.81 [degF] Lisa Athy PA-C Work Phone: [facility] 07-13-2022 09:36-0500 Body weight 90.27 kg Lisa Athy PA-C Work Phone: [facility] 07-13-2022 09:36-0500 Diastolic blood pressure 80 mm[Hg] Lisa Athy PA-C Work Phone: [facility] 07-13-2022 09:36-0500 Heart rate 84 /min Lisa Athy PA-C Work Phone: [facility] 07-13-2022 09:36-0500 Respiratory rate 16 /min Lisa Athy PA-C Work Phone: [facility] 07-13-2022 09:36-0500 Systolic blood pressure 146 mm[Hg] Lisa Rodas PA-C Work Phone: [facility] 04-17-2022 11:20-0400 Body weight 90.95 kg Janet Little MD Work Phone: [facility] 04-17-2022 11:20-0400 Diastolic blood pressure 80 mm[Hg] Janet Little MD Work Phone: [facility] 04-17-2022 11:20-0400 Heart rate 90 /min Janet Little MD Work Phone: [facility] 04-17-2022 11:20-0400 Respiratory rate 18 /min Janet Little MD Work Phone: [facility] 04-17-2022 11:20-0400 Systolic blood pressure 180 mm[Hg] Janet Little MD Work Phone: [facility] 01-15-2022 15:09-0400 Body weight 89.63 kg Janet Little MD Work Phone: [facility] 01-15-2022 15:09-0400 Diastolic blood pressure 76 mm[Hg] Janet Little MD Work Phone: [facility] 01-15-2022 15:09-0400 Heart rate 80 /min Janet Little MD Work Phone: [facility] 01-15-2022 15:09-0400 Respiratory rate 16 /min Janet Little MD Work Phone: [facility] 01-15-2022 15:09-0400 Systolic blood pressure 154 mm[Hg] Janet Little MD Work Phone: [facility] 12-28-2021 09:37-0400 Body temperature 98.01 [degF] Natacha Jackson APRN.TELEPHONE REPAIRER Work Phone: [facility] 12-28-2021 09:37-0400 Body weight 90.72 kg Natacha Jackson APRN.TELEPHONE REPAIRER Work Phone: [facility] 12-28-2021 09:37-0400 Diastolic blood pressure 88 mm[Hg] Natacha Jackson APRN.TELEPHONE REPAIRER Work Phone: [facility] 12-28-2021 09:37-0400 Heart rate 98 /min Natacha Jackson APRN.TELEPHONE REPAIRER Work Phone: [facility] 12-28-2021 09:37-0400 Respiratory rate 16 /min Natacha Jackson SALESPERSON [employer]IES.TELEPHONE REPAIRER Work Phone: [facility] 12-28-2021 09:37-0400 SaO2% (BldA) [Mass fraction] 98 % Natacha Jackson SALESPERSON [employer]IES.TELEPHONE REPAIRER Work Phone: [facility] 12-28-2021 09:37-0400 Systolic blood pressure 148 mm[Hg] Natacha Jackson APRN.TELEPHONE REPAIRER Work Phone: [facility] 12-12-2021 14:15-0400 Diastolic blood pressure 76 mm[Hg] Janet Little MD Work Phone: [facility] 12-12-2021 14:15-0400 Systolic blood pressure 148 mm[Hg] Janet Little MD Work Phone: [facility] 12-12-2021 14:12-0400 Body weight 90.63 kg Janet Little MD Work Phone: [facility] 12-12-2021 14:12-0400 Heart rate 84 /min Janet Little MD Work Phone: [facility] 12-12-2021 14:12-0400 Respiratory rate 16 /min Janet Little MD Work Phone: [facility] 12-02-2021 10:26-0400 Body height 158.8 cm Chelsy Cleveland MD Work Phone: [facility] 12-02-2021 10:26-0400 Body temperature 97.39 [degF] Chelsy Cleveland MD Work Phone: [facility] 12-02-2021 10:26-0400 Body weight 90.72 kg Chelsy Cleveland MD Work Phone: [facility] 12-02-2021 10:26-0400 Diastolic blood pressure 60 mm[Hg] Chelsy Cleveland MD Work Phone: [facility] 12-02-2021 10:26-0400 Heart rate 81 /min Chelsy Cleveland MD Work Phone: [facility] 12-02-2021 10:26-0400 Respiratory rate 14 /min Chelsy Cleveland MD Work Phone: [facility] 12-02-2021 10:26-0400 SaO2% (BldA) [Mass fraction] 97 % Chlesy Cleveland MD Work Phone: [facility] 12-02-2021 10:26-0400 Systolic blood pressure 148 mm[Hg] Chelsy Cleveland MD Work Phone: [facility] 11-13-2021 14:55-0400 Body height 158.8 cm Janet Little MD Work Phone: [facility] 11-13-2021 14:55-0400 Body weight 91.99 kg Janet Little MD Work Phone: [facility] 11-13-2021 14:55-0400 Diastolic blood pressure 74 mm[Hg] Janet Little MD Work Phone: [facility] 11-13-2021 14:55-0400 Heart rate 88 /min Janet Little MD Work Phone: [facility] 11-13-2021 14:55-0400 Respiratory rate 18 /min Janet Little MD Work Phone: [facility] 11-13-2021 14:55-0400 Systolic blood pressure 180 mm[Hg] Janet Little MD Work Phone: [facility] Encounters Encounter Date Encounter Type Care Provider Facility Start: 03-28-2025 End: 03-28-2025 Refill Janet Little MD Work Phone: [facility] Comment on above: Refill Request Start: 03-07-2025 End: 03-07-2025 Office outpatient visit 25 minutes Janet Little MD Work Phone: [facility] Comment on above: Uncontrolled type 2 diabetes mellitus with hyperglycemia (HCC) (Primary Dx); Mixed hyperlipidemia; Anxiety and depression; Essential hypertension Start: 03-07-2025 End: 03-07-2025 ambulatory JANET Brandon [facility] Facility:[facility] Start: 02-13-2025 End: 02-13-2025 ambulatory [facility] Facility:[facility] Start: 02-13-2025 End: 02-13-2025 Office outpatient visit 25 minutes Yusuf Kendrick APRN.[facility] Work Phone: [facility] Comment on above: Cellulitis of antihe lix of left ear (Primary Dx) Start: 02-07-2025 End: 02-07-2025 ambulatory Yenni Og [facility] Comment on above: Allied Health Visit (SUPD) Start: 01-26-2025 End: 01-26-2025 ambulatory JANET Taylor [facility] Facility:[facility] Start: 01-16-2025 End: 01-17-2025 Telephone encounter Janet Little MD Work Phone: [facility] Comment on above: Patient Question; Or ders Start: 01-10-2025 End: 01-10-2025 Refill Janet Little MD Work Phone: [facility] Comment on above: Refill Request Start: 12-21-2024 End: 12-21-2024 ambulatory Dasia Corona [facility] Start: 12-21-2024 End: 12-21-2024 Patient encounter procedure Dasia Corona [facility] Comment on above: Population Health Na vigation Outreach ([place]) Start: 12-07-2024 End: 12-07-2024 ambulatory JANET Taylor [facility] Facility:[facility] Start: 11-21-2024 End: 11-21-2024 ambulatory Brittani Herzog [facility] Work Phone: Pharmacy Medicine Start: 11-18-2024 End: 11-18-2024 Telephone encounter Janet Little MD Work Phone: [facility] [place] Comment on above: Medication Request Start: 11-07-2024 End: 11-07-2024 Telephone encounter Janet Little MD Work Phone: [facility] [place] Comment on above: Patient Question Start: 10-31-2024 End: 10-31-2024 ambulatory JANET Brandon [facility] Facility:[facility] Start: 10-31-2024 End: 10-31-2024 Patient encounter procedure Janet Little MD Work Phone: [facility] Comment on above: Pharyngitis, unspeci fied etiology (Primary Dx); Bacterial sinusitis Start: 10-26-2024 End: 10-26-2024 ambulatory [facility] Facility:[facility] Start: 10-26-2024 End: 10-26-2024 Patient encounter procedure Natacha Jackson APRN.[facility] Work Phone: [facility] Comment on above: Viral URI with cough (Primary Dx); Sore throat; Heart murmur Start: 10-13-2024 End: 10-13-2024 ambulatory [facility] Facility:[facility] Start: 10-13-2024 End: 10-13-2024 Patient encounter procedure Darcy Minerva [facility] Work Phone: [facility] Comment on above: Uncontrolled type 2 diabetes mellitus with hyperglycemia (HCC) (Primary Dx) Start: 09-29-2024 End: 09-29-2024 Refill Janet Little MD Work Phone: [address] [place] [address] Comment on above: Refill Request Start: 09-13-2024 End: 09-13-2024 Refill Janet Little MD Work Phone: [facility] [place] Comment on above: Refill Request Start: 09-12-2024 End: 09-12-2024 Telephone encounter Janet Little MD Work Phone: [facility] [place] Comment on above: Medication Problem Start: 09-06-2024 End: 09-06-2024 ambulatory JANET LITTLE Facility:[facility] Start: 09-06-2024 End: 09-06-2024 Patient encounter procedure Janet Little MD Work Phone: [facility] Comment on above: Type 2 diabetes jeanine itus with diabetic neuropathy, without long-term current use of insulin (HCC) (Primary Dx); Anxiety; Major depressive disorder, recurrent, mild (HCC); Essential hypertension; Mixed hyperlipidemia; Vitamin D deficiency; History of stroke; Class 2 severe obesity with serious comorbidity and body mass index (BMI) of 35.0 to 35.9 in adult, unspecified obesity type (HCC); Leg pain, bilateral Start: 08-22-2024 End: 08-22-2024 Telephone encounter Janet Little MD Work Phone: [facility] Comment on above: Refill Request Start: 08-19-2024 End: 08-19-2024 ambulatory BRANDI ESPINO Facility:[facility] Start: 08-18-2024 End: 08-18-2024 Subsequent hospital visit by physician Garrett [facility] Work Phone: Radiology Comment on above: Acute cough [R05.1] Start: 08-18-2024 End: 08-18-2024 [facility] Start: 08-18-2024 End: 08-18-2024 Patient encounter procedure Makeda Denis APRN.CNP Work Phone: [facility] Comment on above: Acute cough (Primary Dx); Rhinosinusitis Start: 07-26-2024 End: 07-26-2024 ambulatory Ness Moulton [facility] Start: 07-26-2024 End: 07-26-2024 Patient encounter procedure Ness Mirate [facility] [place] Comment on above: Population Health Na vigation Outreach ([employer] ) Start: 06-30-2024 End: 06-30-2024 ambulatory [facility] Facility:[facility] Start: 06-30-2024 End: 06-30-2024 Patient encounter procedure Darcy Palma [facility] Work Phone: [facility] Comment on above: Uncontrolled type 2 diabetes mellitus with hyperglycemia (HCC) (Primary Dx) Start: 06-10-2024 End: 06-10-2024 ambulatory [facility] Facility:[facility] Start: 06-10-2024 End: 06-10-2024 Patient encounter procedure Janet Little MD Work Phone: [facility] [place] Comment on above: Uncontrolled type 2 diabetes mellitus with hyperglycemia (HCC) (Primary Dx); Urinary frequency; Mixed hyperlipidemia; Anxiety and depression; Essential hypertension; Bacterial pneumonia; Vaginal yeast infection; Class 2 severe obesity with serious comorbidity and body mass index (BMI) of 35.0 to 35.9 in adult, unspecified obesity type (HCC) Start: 06-06-2024 End: 06-06-2024 ambulatory [facility] Facility:[facility] Start: 06-06-2024 End: 06-06-2024 Office outpatient visit 25 minutes Nabil Baldwin MD Work Phone: [facility] Comment on above: Bacterial pneumonia (Primary Dx) Start: 06-03-2024 End: 06-03-2024 Telephone encounter Brandi Childers APRN.TELEPHONE REPAIRER Work Phone: [facility] Comment on above: Results (Vitamin d ) Start: 06-01-2024 End: 06-01-2024 ambulatory BRANDI CHILDERS Facility:[facility] Start: 05-27-2024 End: 05-27-2024 Telephone encounter Janet Little MD Work Phone: [facility] [place] Comment on above: Lab order request Start: 05-27-2024 End: 05-27-2024 Patient encounter procedure Jalyn Walker APRN.TELEPHONE REPAIRER Work Phone: [facility] Comment on above: Acute cough (Primary Dx); Bacterial pneumonia Start: 05-27-2024 End: 05-27-2024 ambulatory [facility] Facility:[facility] Start: 05-27-2024 End: 05-27-2024 Subsequent hospital visit by physician Garrett [facility] Work Phone: Radiology Comment on above: Acute cough [R05.1] Start: 05-26-2024 End: 05-26-2024 ambulatory Janet Little MD Work Phone: Family [facility] Comment on above: Cough Start: 05-17-2024 End: 05-17-2024 [facility]ulatory [facility] Start: 05-05-2024 End: 05-05-2024 ambulatory JANET Brandon [facility] Facility:[facility] Start: 05-05-2024 End: 05-05-2024 Patient encounter procedure Darcy Minerva [facility] Work Phone: [facility] Comment on above: Uncontrolled type 2 diabetes mellitus with hyperglycemia (HCC) (Primary Dx) Start: 04-26-2024 End: 04-26-2024 ambulatory [facility] Facility:[facility] Start: 04-11-2024 End: 04-12-2024 Telephone encounter Janet Little MD Work Phone: [facility] [place] Comment on above: Results Start: 04-11-2024 End: 04-11-2024 ambulatory Janet [facility] Facility:[facility] Start: 04-08-2024 End: 04-08-2024 Refill Janet Little MD Work Phone: Family [facility] Comment on above: Refill Request Start: 04-04-2024 End: 04-20-2024 Telephone encounter Janet Little MD Work Phone: Family [facility] Comment on above: new information Start: 03-11-2024 End: 03-11-2024 ambulatory [facility] Facility:[facility] Start: 03-08-2024 Refill Reno YOUNG RN.TELEPHONE REPAIRER Work Phone: [facility] [place] Comment on above: Refill Request Start: 03-08-2024 End: 03-08-2024 Patient encounter procedure Janet Little MD Work Phone: [facility] [place] Comment on above: Type 2 diabetes jeanine itus with diabetic neuropathy, without long-term current use of insulin (HCC) (Primary Dx); Mixed hyperlipidemia; Essential hypertension; Anxiety and depression; Encounter for screening mammogram for malignant neoplasm of breast; Allergy, initial encounter; Uncontrolled type 2 diabetes mellitus with hyperglycemia (HCC) Start: 03-04-2024 End: 03-04-2024 [facility] Start: 02-26-2024 End: 02-26-2024 [facility] Start: 02-10-2024 ambulatory Janet ramirez MD Work Phone: Internal Medicine [place] [id number] Start: 02-04-2024 End: 02-04-2024 [facility] Work Phone: [facility] Comment on above: Uncontrolled type 2 diabetes mellitus with hyperglycemia (HCC) (Primary Dx) Start: 01-25-2024 Telephone encounter Janet pires MD Work Phone: [facility] [place] Comment on above: handicap placard Start: 01-01-2024 Telephone encounter Janet pires MD Work Phone: Family [facility] Comment on above: Medication Question Start: 12-24-2023 End: 12-24-2023 Patient encounter procedure Darcysamm Llamascasiashlee [facility] Work Phone: [facility] Comment on above: Uncontrolled type 2 diabetes mellitus with hyperglycemia (HCC) (Primary Dx) Start: 12-21-2023 Telephone encounter Janet pires MD Work Phone: Family [facility] Comment on above: Patient Question Start: 12-19-2023 Refill Reno YOUNG RN.[facility] Work Phone: Family [facility] Comment on above: Refill Request Start: 12-18-2023 End: 12-18-2023 ambulatory [facility] [place] Start: 12-14-2023 Telephone encounter Janet pires MD Work Phone: Family Medicine [place] Comment on above: Patient Question; Me dication Question Start: 12-03-2023 End: 12-03-2023 Patient encounter procedure Janet Little MD Work Phone: [facility] Comment on above: Anxiety and depressi on (Primary Dx); Mixed hyperlipidemia; Essential hypertension; History of stroke; Type 2 diabetes mellitus with diabetic neuropathy, without long-term current use of insulin (HCC); Nodule of skin of right lower extremity; Leg pain, bilateral; Uncontrolled type 2 diabetes mellitus with hyperglycemia (HCC); Major depressive disorder, recurrent, mild (HCC) Start: 11-16-2023 Refill Reno YOUNG RN.[facility] Work Phone: [facility] Comment on above: Refill Request Start: 11-09-2023 Telephone encounter Darcy Paneccasio [facility] Work Phone: [facility] Start: 10-28-2023 Telephone encounter Darcy Paneccasio [facility] Work Phone: [facility] Comment on above: Patient Question Start: 10-16-2023 Telephone encounter Janet pires MD Work Phone: [facility] Comment on above: Medication Question Start: 10-15-2023 End: 10-15-2023 Patient encounter procedure Darcy Paneccasio [facility] Work Phone: [facility] Comment on above: Type 2 diabetes jeanine itus with hyperglycemia, unspecified whether care home insulin use (HCC) (Primary Dx); Uncontrolled type 2 diabetes mellitus with hyperglycemia (HCC) Start: 07-22-2023 Refill Janet ramirez MD Work Phone: [facility] Comment on above: Refill Request Start: 06-25-2023 ambulatory [facility] Work Phone: [facility] Start: 05-26-2023 Refill Janet ramirez MD Work Phone: [facility] Comment on above: Med Change Request Start: 05-26-2023 End: 05-26-2023 Patient encounter procedure Janet Little MD Work Phone: [facility] Comment on above: Anxiety and depressi on (Primary Dx); Uncontrolled type 2 diabetes mellitus with hyperglycemia (HCC); Essential hypertension; Mixed hyperlipidemia; Arterial ischemic stroke, MCA (middle cerebral artery), left, acute (HCC) Start: 05-21-2023 Telephone encounter Janet pires MD Work Phone: [facility] Comment on above: Patient Question Start: 05-05-2023 Refill Janet ramirez MD Work Phone: [facility] Start: 04-22-2023 Refill Janet ramirez MD Work Phone: [facility] Comment on above: Refill Request; Refi ll Request Start: 04-03-2023 Telephone encounter Makeda patterson SALESPERSON [employer].TELEPHONE REPAIRER Work Phone: [facility] Comment on above: Results Start: 04-01-2023 End: 04-01-2023 Patient encounter procedure Massiel Reeder SALESPERSON [employer]IST SUPPLIES.TELEPHONE REPAIRER Work Phone: [facility] Comment on above: Burning with urinati on (Primary Dx); Glucosuria; Elevated blood pressure reading without diagnosis of hypertension Start: 03-31-2023 Telephone encounter Janet pires MD Work Phone: [address] [place] [address] Comment on above: Refill Request Start: 01-29-2023 End: 01-29-2023 Patient encounter procedure Janet Little MD Work Phone: [facility] Comment on above: Type 2 diabetes jeanine itus with diabetic neuropathy, without long-term current use of insulin (HCC) (Primary Dx); Anxiety and depression; Essential hypertension; Mixed hyperlipidemia; Arterial ischemic stroke, MCA (middle cerebral artery), left, acute (HCC); Lipoma of right lower extremity; Leg cramping Start: 01-25-2023 Telephone encounter Natacha Jackson APRN.TELEPHONE REPAIRER Work Phone: [facility] Comment on above: Results Start: 01-22-2023 Telephone encounter Janet pires MD Work Phone: [facility] Comment on above: UTI Start: 01-22-2023 End: 01-22-2023 Patient encounter procedure Makedagiana Denis APRN.CNP Work Phone: [facility] Comment on above: Dysuria (Primary Dx) ; Glucosuria Start: 01-15-2023 Telephone encounter Janet pires MD Work Phone: [facility] Comment on above: Rx refill; not on cu rrent med list Start: 11-24-2022 Refill Janet ramirez MD Work Phone: [facility] Comment on above: Refill Request Start: 10-21-2022 End: 10-21-2022 Patient encounter procedure Janet Little MD Work Phone: [facility] Comment on above: Type 2 diabetes jeanine itus without complication, without long- term current use of insulin (HCC) (Primary Dx); Anxiety and depression; Essential hypertension; Mixed hyperlipidemia Start: 10-17-2022 Refill Janet ramirez MD Work Phone: [facility] Comment on above: Refill Request Start: 10-03-2022 ambulatory [facility] Comment on above: Population Health Na vigation Outreach ([employer] care gaps) Start: 08-29-2022 End: 08-29-2022 ambulatory [facility] Work Phone: Start: 08-29-2022 End: 08-29-2022 Patient encounter procedure [facility], Specimen Start: 08-04-2022 Telephone encounter Janet pires MD Work Phone: [facility] Comment on above: Medication Problem Start: 07-21-2022 End: 07-21-2022 Patient encounter procedure Janet Little MD Work Phone: [facility] Comment on above: Anxiety and depressi on (Primary Dx); Mixed hyperlipidemia; Essential hypertension; Type 2 diabetes mellitus without complication, without long-term current use of insulin (HCC); Arterial ischemic stroke, MCA (middle cerebral artery), left, acute (HCC) Start: 07-13-2022 End: 07-13-2022 Patient encounter procedure Lisa Rodas PA-C Work Phone: [facility] Comment on above: Burning with urinati on (Primary Dx); Nasal congestion Start: 07-09-2022 ambulatory Janet ramirez MD Work Phone: [facility] [place] Start: 04-17-2022 End: 04-17-2022 Patient encounter procedure Janet Little MD Work Phone: [facility] [place] Comment on above: Mixed hyperlipidemia (Primary Dx); Type 2 diabetes mellitus without complication, without long-term current use of insulin (HCC); Essential hypertension; Anxiety and depression Start: 03-11-2022 ambulatory Janet ramirez MD Work Phone: [facility] Comment on above: Medication Request Start: 03-03-2022 Refill Janet ramirez MD Work Phone: [facility] [place] Comment on above: Refill Request Start: 01-27-2022 Refill Janet ramirez MD Work Phone: [facility] Comment on above: Refill Request Start: 01-15-2022 End: 01-15-2022 Patient encounter procedure Janet Little MD Work Phone: [facility] [place] Comment on above: Hematuria, unspecifi ed type (Primary Dx); Urinary incontinence, unspecified type; Vaginal yeast infection; Musculoskeletal back pain; Anxiety and depression; Essential hypertension; Type 2 diabetes mellitus without complication, without long-term current use of insulin ([facility]) Start: 12-28-2021 End: 12-28-2021 Patient encounter procedure Natacha Jackson APRN.CNP Work Phone: [facility] Comment on above: Burning with urinati on (Primary Dx) Start: 12-26-2021 Telephone encounter Janet pires MD Work Phone: [facility] Comment on above: Opened In Error Start: 12-24-2021 Refill Janet ramirez MD Work Phone: [facility] Comment on above: Refill Request Patient Question (re questing refill) Start: 12-12-2021 End: 12-12-2021 Patient encounter procedure Janet Little MD Work Phone: [facility] [place] Comment on above: Anxiety (Primary Dx) ; Cerebrovascular accident (CVA), unspecified mechanism (HCC); TIA (transient ischemic attack); Uncontrolled type 2 diabetes mellitus with hyperglycemia (HCC); Essential hypertension; Mixed hyperlipidemia Start: 12-05-2021 Telephone encounter Janet pires MD Work Phone: [facility] [place] Comment on above: Results Start: 12-02-2021 End: 12-02-2021 Patient encounter procedure Chelsy Cleveland MD Work Phone: [facility] Comment on above: Arterial ischemic st roke, MCA (middle cerebral artery), left, acute (HCC) (Primary Dx); Type 2 diabetes mellitus with diabetic neuropathy, without long-term current use of insulin (HCC); Mixed hyperlipidemia; Ataxia; Essential hypertension; Non-compliance; Anxiety and depression; Type 2 diabetes mellitus with other diabetic arthropathy, without long-term current use of insulin (HCC); 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) Start: 11-26-2021 Refill Janet ramirez MD Work Phone: [facility] [place] Comment on above: Refill Request Start: 11-19-2021 ambulatory Kristin Salguero [facility] Comment on above: Population Health Na vigation Outreach ([employer] Care Gaps) Start: 11-13-2021 End: 11-13-2021 Patient encounter procedure Janet Little MD Work Phone: [facility] Comment on above: Cerebrovascular acci dent (CVA), unspecified mechanism (HCC) (Primary Dx); Anxiety; TIA (transient ischemic attack); Upper back pain; Type 2 diabetes mellitus without complication, without long-term current use of insulin (HCC) Start: 10-10-2021 Telephone encounter Janet pires MD Work Phone: [facility] Comment on above: Results Start: 02-21-2020 Physical examination [facility] Procedures Date Procedure Procedure Detail Performing Clinician Start: 10-31-2024 STREP A MOLECULAR (POC) Janet Little MD Work Phone: Start: 10-26-2024 STREP A MOLECULAR (POC) Makeda Denis SALESPERSON [employer]IES.TELEPHONE REPAIRER Work Phone: Start: 08-18-2024 Radiologic exam ches t 2 views Natacha Renetta SALESPERSON [employer]IST [employer]IES.TELEPHONE REPAIRER Work Phone: Start: 05-27-2024 Radiologic exam ches t 2 views Jalyndarvin Walker SALESPERSON [employer]IST [employer]IES.TELEPHONE REPAIRER Work Phone: Start: 04-01-2023 Urnls dip stick/tabl et rgnt auto w/o microscopy Massiel Reeder SALESPERSON [employer]IES.TELEPHONE REPAIRER Work Phone: Start: 01-22-2023 Gluc bld gluc mntr d ev cleared fda spec home use Makeda Denis SALESPERSON [employer]IST [employer]IES.TELEPHONE REPAIRER Work Phone: Start: 01-22-2023 Urnls dip stick/tabl et rgnt auto w/o microscopy Makeda Denis SALESPERSON [employer]IST SUPPLIES.TELEPHONE REPAIRER Work Phone: Start: 07-13-2022 Urnls dip stick/tabl et rgnt auto w/o microscopy Makeda Denis SALESPERSON [employer]IST SUPPLIES.TELEPHONE REPAIRER Work Phone: Start: 12-28-2021 Urnls dip stick/tabl et rgnt auto w/o microscopy Yusuf Kendrick SALESPERSON [employer]IST SUPPLIES.TELEPHONE REPAIRER Work Phone: Start: 06-04-2021 Mammography Janet levi MD Work Phone: Start: 05-14-2020 Adult depression scr eening assessment Janet Little MD Work Phone: Start: 01-03-2020 Colonoscopy Janet levi MD Work Phone: Urine culture Plan of Treatment Date Care Activity Detail Author Start: 01-02-[address] [facility] Start: 01-02-2030 COLORECTAL CANCER SCREENING COLORECTAL CANCER SCREENING [facility] Start: 01-02-2030 Screening for malign ant neoplasm of colon [facility] Start: 03-07-2026 Annual PCP Team Bale Coverer ruthann Disease Visit Annual PCP Team Chronic Disease Visit [facility] Start: 12-19-2025 End: 12-19-2025 Patient encounter procedure 12/19/2025 1:00 PM EDT Office Visit [facility] [address] [place] [address] Yusuf Vickers MD [address] [facility] [place] [address] transfer of care [facility] Comment on above: transfer of care Start: 12-07-2025 Hepatitis B surface antibody level LDL Cholesterol [facility] Start: 10-31-2025 Annual PCP Team Bale Coverer ruthann Disease Visit Annual PCP Team Chronic Disease Visit [facility] Start: 09-06-2025 Annual PCP Team Bale Coverer ruthann Disease Visit Annual PCP Team Chronic Disease Visit [facility] Start: 09-06-2025 RSV Vaccine (1 - Ris k 60-74 years 1-dose series) RSV Vaccine (1 - Risk 60-74 years 1-dose series) [facility] Comment on above: Postponed from 05/07 (Declined at this time) Start: 09-06-2025 Shingrix Vaccine (1 of 2) Kahn grix Vaccine (1 of 2) [facility] Comment on above: Postponed from 05/07 (Declined at this time) Start: 08-19-2025 Hepatitis B surface antibody level LDL Cholesterol [facility] Start: 06-10-2025 Annual PCP Team Bale Coverer ruthann Disease Visit Annual PCP Team Chronic Disease Visit [facility] Start: 06-10-2025 Covid-19 Vaccine ( season) Covid-19 Vaccine ( season) [facility] Comment on above: Postponed from 04/17 (Declined at this time) Start: 05-17-2025 Hepatitis B surface antibody level LDL Cholesterol [facility] Start: 05-09-2025 End: 05-09-2025 Patient encounter procedure 05/09/2025 10:00 AM EDT Office Visit [facility] [address] [place] [address] Janet Little MD [address] [place] [address] 2 month follow up [facility] Comment on above: 2 month follow up Start: 05-08-2025 End: 08-07-2025 Comprehensive metabolic 2000 panel - Serum or Plasma COMPREHENSIVE METABOLIC PANEL Lab Routine Uncontrolled type 2 diabetes mellitus with hyperglycemia (HCC) Mixed hyperlipidemia Expected: 05/08/2025 (Approximate), Expires: 08/07/2025 [facility] Work Phone: Comment on above: Expected: 05/08/2025 (Approximate), Expires: 08/07/2025 Start: 05-08-2025 End: 08-07-2025 Hemoglobin A1c in Blood HEMOGLOBIN A1C Lab Routine Uncontrolled type 2 diabetes mellitus with hyperglycemia (HCC) Expected: 05/08/2025 (Approximate), Expires: 08/07/2025 [facility] Comment on above: Expected: 05/08/2025 (Approximate), Expires: 08/07/2025 Start: 05-08-2025 End: 08-07-2025 Lipid 1996 panel - Serum or Plasma LIPID PANEL, FASTING Lab Routine Uncontrolled type 2 diabetes mellitus with hyperglycemia (HCC) Mixed hyperlipidemia Expected: 05/08/2025 (Approximate), Expires: 08/07/2025 [facility] Comment on above: Expected: 05/08/2025 (Approximate), Expires: 08/07/2025 Start: 04-28-2025 Hemoglobin A1c measurement HbA1C [facility] Start: 04-17-2025 Influenza vaccination C [facility] Start: 04-11-2025 Screening for malign ant neoplasm of breast Mammogram Screening [facility] Start: 03-08-2025 Annual PCP Team Bale Coverer ruthann Disease Visit Annual PCP Team Chronic Disease Visit [facility] Start: 03-08-2025 Covid-19 Vaccine ( season) Covid-19 Vaccine ( season) [facility] Comment on above: Postponed from 04/17 (Declined at this time) Start: 03-08-2025 Hemoglobin A1c measurement HbA1C [facility] Start: 03-08-2025 Pneumococcal Vaccine : 50+ (1 of 2 - PCV) Pneumococcal Vaccine: 50+ (1 of 2 - PCV) [facility] Comment on above: Postponed from 05/07 (Declined at this time) Start: 03-08-2025 Pneumococcal Vaccine : 65+ (1 of 2 - PCV) Pneumococcal Vaccine: 65+ (1 of 2 - PCV) [facility] Comment on above: Postponed from 05/07 (Declined at this time) Start: 03-07-2025 End: 03-07-2025 Patient encounter procedure 03/07/2025 9:40 AM EDT Office Visit [facility] [address] [place] [place] [address] Janet Little MD [address] [facility] [place], [place] [address] 3 mo f/u [facility] Comment on above: 3 mo f/u Start: 03-03-2025 End: 03-03-2025 Patient encounter procedure 03/03/2025 9:00 AM EDT Office Visit [facility] [place] [address] [facility], [place] [id number] Janet Little MD [address] [facility] [place], [place] [id number] 3 mo f/u [facility] [place] Comment on above: 3 mo f/u Start: 02-15-2025 Hepatitis B surface antibody level LDL Cholesterol [facility] Start: 02-13-2025 Influenza vaccination Influenza Vacc ine (#1) [facility] Comment on above: Postponed from 04/17 (Declined at this time) Start: 02-07-2025 End: 05-09-2025 Basic metabolic 2000 panel - Serum or Plasma BASIC METABOLIC PANEL Lab Routine Type 2 diabetes mellitus with hyperglycemia, unspecified whether care home insulin use (HCC) Essential hypertension Expected: 02/07/2025 (Approximate), Expires: 05/09/2025 [facility] Comment on above: Expected: 02/07/2025 (Approximate), Expires: 05/09/2025 Start: 02-07-2025 End: 05-09-2025 CBC panel - Blood by Automated count COMPLETE BLOOD COUNT Lab Routine Essential hypertension Expected: 02/07/2025 (Approximate), Expires: 05/09/2025 [facility] Comment on above: Expected: 02/07/2025 (Approximate), Expires: 05/09/2025 Start: 02-07-2025 End: 05-09-2025 Hemoglobin A1c in Blood HEMOGLOBIN A1C Lab Routine Type 2 diabetes mellitus with hyperglycemia, unspecified whether extermination supervisor insulin use (HCC) Expected: 02/07/2025 (Approximate), Expires: 05/09/2025 [facility] Work Phone: Comment on above: Expected: 02/07/2025 (Approximate), Expires: 05/09/2025 Start: 02-07-2025 End: 02-07-2025 Patient encounter procedure 02/07/2025 9:40 AM EDT Office Visit [facility] [address] [place] [address] Janet Little MD [address] [place], [place] [id number] 3 mo f/u Family [facility] Comment on above: 3 mo f/u Start: 12-22-2024 End: 12-22-2024 Patient encounter procedure 12/22/2024 9:00 AM EDT Office Visit [facility] [address] [place] [address] Janet Little MD [address] [facility] [facility] [place] [address] 3 mo f/u [facility] [place] Comment on above: 3 mo f/u Start: 12-06-2024 End: 12-06-2024 Patient encounter procedure 12/06/2024 9:20 AM EDT Office Visit [facility] [place] [address] [place] [place] [address] Janet Little MD [address] [facility] [place] [address] 3 mo f/u [facility] Comment on above: 3 mo f/u Start: 12-05-2024 End: 03-06-2025 Comprehensive metabolic 2000 panel - Serum or Plasma COMPREHENSIVE METABOLIC PANEL Lab Routine Type 2 diabetes mellitus with diabetic neuropathy, without long-term current use of insulin (HCC) Essential hypertension Mixed hyperlipidemia Expected: 12/05/2024 (Approximate), Expires: 03/06/2025 [facility] Work Phone: Comment on above: Expected: 12/05/2024 (Approximate), Expires: 03/06/2025 Start: 12-05-2024 End: 03-06-2025 Hemoglobin A1c in Blood HEMOGLOBIN A1C Lab Routine Type 2 diabetes mellitus with diabetic neuropathy, without long-term current use of insulin (HCC) Expected: 12/05/2024 (Approximate), Expires: 03/06/2025 [facility] Comment on above: Expected: 12/05/2024 (Approximate), Expires: 03/06/2025 Start: 12-05-2024 End: 03-06-2025 Lipid 1996 panel - Serum or Plasma LIPID PANEL BASIC Lab Routine Type 2 diabetes mellitus with diabetic neuropathy, without long-term current use of insulin (HCC) Essential hypertension Mixed hyperlipidemia Expected: 12/05/2024 (Approximate), Expires: 03/06/2025 [facility] Comment on above: Expected: 12/05/2024 (Approximate), Expires: 03/06/2025 Start: 12-05-2024 End: 12-05-2024 Patient encounter procedure 12/05/2024 1:20 PM EDT Office Visit [facility] [place] [address] [place], [place] [phone] Janet Little MD [address] [place], [place] [id number] 3 MTH F/U [facility] Comment on above: 3 MTH F/U Start: 12-02-2024 Annual PCP Team Bale Coverer ruthann Disease Visit Annual PCP Team Chronic Disease Visit [facility] Start: 11-18-2024 Hepatitis B screening Urine Al bumin:Creatinine Ratio [facility] Start: 11-18-2024 Hepatitis B surface antibody level LDL Cholesterol [facility] Start: 11-17-2024 [address] A[address] HbA1C [facility] Start: 10-13-2024 End: 10-13-2024 Patient encounter procedure 10/13/2024 1:00 PM EST Office Visit [facility] [address] [place], [place] [id number] Darcy Palma, [facility] [address], [place] [id number] DM f/up [facility] Comment on above: DM f/up Start: 09-22-2024 End: 09-22-2024 Patient encounter procedure 09/22/2024 9:30 AM EST Office Visit [facility] [address] [facility] [place] [address] Osmanifelicitaashlee Darcy, [facility] [address] [place] [address] DM f/up [facility] Comment on above: DM f/up Start: 09-10-2024 End: 12-10-2024 Comprehensive metabolic 2000 panel - Serum or Plasma COMPREHENSIVE METABOLIC PANEL Lab Routine Mixed hyperlipidemia Uncontrolled type 2 diabetes mellitus with hyperglycemia (HCC) Expected: 09/10/2024 (Approximate), Expires: 12/10/2024 [facility] Comment on above: Expected: 09/10/2024 (Approximate), Expires: 12/10/2024 Start: 09-10-2024 End: 12-10-2024 Hemoglobin A1c in Blood HEMOGLOBIN A1C Lab Routine Uncontrolled type 2 diabetes mellitus with hyperglycemia (HCC) Expected: 09/10/2024 (Approximate), Expires: 12/10/2024 [facility] Comment on above: Expected: 09/10/2024 (Approximate), Expires: 12/10/2024 Start: 09-10-2024 End: 12-10-2024 Lipid 1996 panel - Serum or Plasma LIPID PANEL BASIC Lab Routine Mixed hyperlipidemia Expected: 09/10/2024 (Approximate), Expires: 12/10/2024 [facility] Comment on above: Expected: 09/10/2024 (Approximate), Expires: 12/10/2024 Start: 09-06-2024 End: 09-06-2024 Patient encounter procedure 09/06/2024 10:40 AM EST Office Visit [facility] [address] [place] [address] Janet Little MD [address] [place] [address] 3mo follow up [facility] Comment on above: 3mo follow up Start: 09-03-2024 End: 12-03-2024 25-hydroxyvitamin D3 [Mass/volume] in Serum or Plasma VITAMIN D 25 HYDROXY Lab Routine Vitamin D deficiency Expected: 09/03/2024, Expires: 12/03/2024 [facility] Work Phone: Comment on above: Expected: 09/03/2024 , Expires: 12/03/2024 Start: 08-28-2024 Annual PCP Team Bale Coverer ruthann Disease Visit Annual PCP Team Chronic Disease Visit [facility] Start: 08-18-2024 Hepatitis B surface antibody level LDL Cholesterol [facility] Start: 08-17-2024 Advance Directive Discussion Advance Directive Discussion [facility] Start: 08-17-2024 Hemoglobin A1c measurement HbA1C [facility] Start: 08-17-2024 Medicare Advantage A nnual Wellness Visit Medicare Advantage Annual Wellness Visit [facility] Start: 06-30-2024 End: 06-30-2024 Patient encounter procedure 06/30/2024 9:30 AM EST Office Visit [facility] [address] [place] [address] Darcy Palma, [facility] [address] [place] [address] DM f/up [facility] Comment on above: DM f/up Start: 06-10-2024 End: 06-10-2024 Patient encounter procedure 06/10/2024 10:00 AM EDT Office Visit Family [facility] [address] [place] [address] Janet Little MD [address] [place] [address] 3 month follow up Family [facility] Comment on above: 3 month follow up Start: 06-08-2024 End: 09-07-2024 Comprehensive metabolic 2000 panel - Serum or Plasma COMPREHENSIVE METABOLIC PANEL Lab Routine Type 2 diabetes mellitus with diabetic neuropathy, without long-term current use of insulin (HCC) Mixed hyperlipidemia Expected: 06/08/2024 (Approximate), Expires: 09/07/2024 [facility] Comment on above: Expected: 06/08/2024 (Approximate), Expires: 09/07/2024 Start: 06-08-2024 End: 09-07-2024 Hemoglobin A1c in Blood HEMOGLOBIN A1C Lab Routine Type 2 diabetes mellitus with diabetic neuropathy, without long-term current use of insulin (HCC) Expected: 06/08/2024 (Approximate), Expires: 09/07/2024 [facility] Comment on above: Expected: 06/08/2024 (Approximate), Expires: 09/07/2024 Start: 06-08-2024 End: 09-07-2024 Lipid 1996 panel - Serum or Plasma LIPID PANEL BASIC Lab Routine Mixed hyperlipidemia Expected: 06/08/2024 (Approximate), Expires: 09/07/2024 [facility] Work Phone: Comment on above: Expected: 06/08/2024 (Approximate), Expires: 09/07/2024 Start: 05-27-2024 End: 08-26-2024 25-hydroxyvitamin D3 [Mass/volume] in Serum or Plasma VITAMIN D 25 HYDROXY Lab Routine Major depressive disorder, recurrent, mild (HCC) Expected: 05/27/2024, Expires: 08/26/2024 [facility] Work Phone: Comment on above: Expected: 05/27/2024 , Expires: 08/26/2024 Start: 05-26-2024 Annual PCP Team Bale Coverer ruthann Disease Visit Annual PCP Team Chronic Disease Visit [facility] Start: 05-26-2024 Shingrix Vaccine (1 of 2) Kahn grix Vaccine (1 of 2) [facility] Comment on above: Postponed from 05/07 (Declined at this time) Start: 05-18-2024 Hemoglobin A1c measurement HbA1C [facility] Start: 05-05-2024 End: 05-05-2024 Patient encounter procedure 05/05/2024 9:00 AM EDT Office Visit [facility] [address] [facility] [place] [address] Darcy Palma, [facility] [address] [place] [address] DM f/up [facility] Comment on above: DM f/up Start: 04-21-2024 Hepatitis B surface antibody level LDL Cholesterol [facility] Start: 04-17-2024 Covid-19 Vaccine ( season) Covid-19 Vaccine () [facility] Start: 04-17-2024 Covid-19 Vaccine () Covid-19 Vaccine () [facility] Start: 04-17-2024 [facility] Start: 04-07-2024 End: 04-07-2024 Patient encounter procedure 04/07/2024 9:30 AM EDT Office Visit [facility] [address] [place], [place] [address] [facility] [address], [place] [phone] DM f/up [facility] Comment on above: DM f/up Start: 03-18-2024 Glaucoma screening Dilated Retinal E xam [facility] Start: 03-18-2024 Hepatitis C antibody , confirmatory test Dilated Retinal Exam [facility] Start: 03-08-2024 End: 03-08-2024 Patient encounter procedure 03/08/2024 9:00 AM EDT Office Visit [facility] [address] [place], [place] [address] Janet Little MD [address] [place], [place] [phone] 3 month follow up DM, HTN, Lipid, JACYLN/Depression [facility] Comment on above: 3 month follow up DM , HTN, Lipid, JACLYN/Depression Start: 03-03-2024 End: 06-02-2024 Comprehensive metabolic 2000 panel - Serum or Plasma COMPREHENSIVE METABOLIC PANEL Lab Routine Mixed hyperlipidemia Type 2 diabetes mellitus with diabetic neuropathy, without long-term current use of insulin (HCC) Expected: 03/03/2024 (Approximate), Expires: 06/02/2024 [facility] Work Phone: Comment on above: Expected: 03/03/2024 (Approximate), Expires: 06/02/2024 Start: 03-03-2024 End: 06-02-2024 Hemoglobin A1c in Blood HEMOGLOBIN A1C Lab Routine Type 2 diabetes mellitus with diabetic neuropathy, without long-term current use of insulin (HCC) Expected: 03/03/2024 (Approximate), Expires: 06/02/2024 [facility] Work Phone: Comment on above: Expected: 03/03/2024 (Approximate), Expires: 06/02/2024 Start: 03-03-2024 End: 06-02-2024 Lipid 1996 panel - Serum or Plasma LIPID PANEL BASIC Lab Routine Mixed hyperlipidemia Expected: 03/03/2024 (Approximate), Expires: 06/02/2024 [facility] Work Phone: Comment on above: Expected: 03/03/2024 (Approximate), Expires: 06/02/2024 Start: 02-18-2024 [address] A[address]c measurement HbA1C [facility] Start: 02-14-2024 Influenza vaccination Influenza Vacc ine (#1) [facility] Comment on above: Postponed from 04/17 (Declined at this time) Start: 02-04-2024 End: 02-04-2024 Patient encounter procedure 02/04/2024 9:30 AM EDT Office Visit Pharm [facility] [address] [place] [address] [facility] [address] [place] [address] DM f/up Pharm [facility] Comment on above: DM f/up Start: 01-30-2024 3 comp foot exam completed DIABETIC FOOT EXAM [facility] Start: 01-30-2024 ANNUAL PCP TEAM ROLL GRINDER RUTHANN DISEASE VISIT ANNUAL PCP TEAM CHRONIC DISEASE VISIT [facility] Start: 01-30-2024 COVID-19 VACCINE (#1) COVID-19 VACCI NE (#1) [facility] Comment on above: Postponed from 11/04 (Declined at this time) Start: 01-30-2024 Diabetic foot examination Diabetic F oot Exam [facility] Start: 01-30-[address] [facility] Comment on above: Postponed from 06/04 (Declined at this time) Start: 01-30-2024 Pneumococcal Vaccine : 65+ (1 - PCV) Pneumococcal Vaccine: 65+ (1 - PCV) [facility] Comment on above: Postponed from 05/07 (Declined at this time) Start: 01-30-2024 Pneumococcal Vaccine : 65+ (1 of 2 - PCV) Pneumococcal Vaccine: 65+ (1 of 2 - PCV) [facility] Comment on above: Postponed from 05/07 (Declined at this time) Start: 01-30-2024 PNEUMOCOCCAL: 65+ (1 - PCV) PNEUMOCOCCAL: 65+ (1 - PCV) [facility] Comment on above: Postponed from 05/07 (Declined at this time) Start: 01-30-2024 Screening for malign ant neoplasm of breast Mammogram Screening [facility] Comment on above: Postponed from 06/04 (Declined at this time) Start: 01-30-[address] [facility] Comment on above: Postponed from 05/07 (Declined at this time) Start: 12-24-2023 End: 12-24-2023 Patient encounter procedure 12/24/2023 9:30 AM EDT Office Visit [facility] [address] [place] [address] Darcy Palma [facility] [address] [place] [address] DM f/up [facility] Comment on above: DM f/up Start: 12-17-2023 End: 12-17-2023 ambulatory 12/17/2023 10:00 AM EDT OT/PT/Speech Visit [facility] [address] [place] [address] Derrick Torre PT Leg pain, bilateral [M79.604, M79.605] [facility] Comment on above: Leg pain, bilateral [M79.604, M79.605] Start: 11-17-2023 [address] A[address]c measurement HbA1C [facility] Start: 10-22-2023 ANNUAL PCP TEAM ROLL GRINDER RUTHANN DISEASE VISIT ANNUAL PCP TEAM CHRONIC DISEASE VISIT [facility] Start: 10-08-2023 Hepatitis B screening URINE AL BUMIN:CREATININE RATIO [facility] Start: 10-08-2023 Hepatitis B surface antibody level LDL CHOLESTEROL [facility] Start: 08-26-2023 End: 10-26-2023 Comprehensive metabolic 2000 panel - Serum or Plasma COMP METABOLIC PANEL Lab Routine Uncontrolled type 2 diabetes mellitus with hyperglycemia (HCC) Essential hypertension Mixed hyperlipidemia Expected: 08/26/2023 (Approximate), Expires: 10/26/2023 [facility] Work Phone: Comment on above: Expected: 08/26/2023 (Approximate), Expires: 10/26/2023 Start: 08-26-2023 End: 10-26-2023 Hemoglobin A1c in Blood HGB A1C Lab Routine Uncontrolled type 2 diabetes mellitus with hyperglycemia (HCC) Expected: 08/26/2023 (Approximate), Expires: 10/26/2023 [facility] Work Phone: Comment on above: Expected: 08/26/2023 (Approximate), Expires: 10/26/2023 Start: 08-26-2023 End: 10-26-2023 Lipid 1996 panel - Serum or Plasma LIPID PANEL BASIC Lab Routine Uncontrolled type 2 diabetes mellitus with hyperglycemia (HCC) Essential hypertension Mixed hyperlipidemia Expected: 08/26/2023 (Approximate), Expires: 10/26/2023 [facility] Work Phone: Comment on above: Expected: 08/26/2023 (Approximate), Expires: 10/26/2023 Start: 08-17-2023 Advance Directive Discussion Advance Directive Discussion [facility] Start: 07-21-2023 ANNUAL PCP TEAM ROLL GRINDER RUTHANN DISEASE VISIT ANNUAL PCP TEAM CHRONIC DISEASE VISIT [facility] Start: 07-21-2023 Hemoglobin A1c/Hemoglobin.total in Blood HbA1C [facility] Start: 06-25-2023 Hepatitis B surface antibody level LDL CHOLESTEROL [facility] Start: 05-01-2023 End: 05-01-2023 Comprehensive metabolic 2000 panel - Serum or Plasma COMP METABOLIC PANEL Lab Routine Essential hypertension Mixed hyperlipidemia Type 2 diabetes mellitus with diabetic neuropathy, without long-term current use of insulin (HCC) Expected: 05/01/2023 (Approximate), Expires: 05/01/2023 [facility] Work Phone: Comment on above: Expected: 05/01/2023 (Approximate), Expires: 05/01/2023 Start: 05-01-2023 End: 05-01-2023 Hemoglobin A1c in Blood HGB A1C Lab Routine Type 2 diabetes mellitus with diabetic neuropathy, without long-term current use of insulin (HCC) Expected: 05/01/2023 (Approximate), Expires: 05/01/2023 [facility] Work Phone: Comment on above: Expected: 05/01/2023 (Approximate), Expires: 05/01/2023 Start: 05-01-2023 End: 05-01-2023 Lipid 1996 panel - Serum or Plasma LIPID PANEL BASIC Lab Routine Essential hypertension Mixed hyperlipidemia Expected: 05/01/2023 (Approximate), Expires: 05/01/2023 [facility] Work Phone: Comment on above: Expected: 05/01/2023 (Approximate), Expires: 05/01/2023 Start: 04-24-2023 Hemoglobin A1c/Hemoglobin.total in Blood HBA1C [facility] Start: 04-17-2023 ANNUAL PCP TEAM ROLL GRINDER RUTHANN DISEASE VISIT ANNUAL PCP TEAM CHRONIC DISEASE VISIT [facility] Start: 04-17-2023 Covid-19 Vaccine ( season) Covid-19 Vaccine ( season) [facility] Start: 04-17-2023 Influenza vaccination [facility] Start: 03-18-2023 Hepatitis C antibody , confirmatory test DILATED RETINAL EXAM [facility] Comment on above: Postponed from 09/23 (Currently Scheduled) Start: 01-21-2023 End: 03-23-2023 Basic metabolic 2000 panel - Serum or Plasma BASIC METABOLIC PNL Lab Routine Type 2 diabetes mellitus without complication, without long-term current use of insulin (HCC) Expected: 01/21/2023 (Approximate), Expires: 03/23/2023 [facility] Work Phone: Comment on above: Expected: 01/21/2023 (Approximate), Expires: 03/23/2023 Start: 01-21-2023 End: 03-23-2023 Hemoglobin A1c in Blood HGB A1C Lab Routine Type 2 diabetes mellitus without complication, without long-term current use of insulin (HCC) Expected: 01/21/2023 (Approximate), Expires: 03/23/2023 [facility] Work Phone: Comment on above: Expected: 01/21/2023 (Approximate), Expires: 03/23/2023 Start: 01-15-2023 3 comp foot exam completed DIABETIC FOOT EXAM [facility] Start: 01-15-2023 ANNUAL PCP TEAM ROLL GRINDER RUTHANN DISEASE VISIT ANNUAL PCP TEAM CHRONIC DISEASE VISIT [facility] Start: 01-15-2023 Hepatitis B surface antibody level LDL CHOLESTEROL [facility] Start: 01-05-2023 Hemoglobin A1c/Hemoglobin.total in Blood HBA1C [facility] Start: 12-12-2022 ANNUAL PCP TEAM ROLL GRINDER RUTHANN DISEASE VISIT ANNUAL PCP TEAM CHRONIC DISEASE VISIT [facility] Start: 11-27-2022 Hepatitis B screening URINE AL BUMIN:CREATININE RATIO [facility] Start: 11-13-2022 ANNUAL PCP TEAM ROLL GRINDER RUTHANN DISEASE VISIT ANNUAL PCP TEAM CHRONIC DISEASE VISIT [facility] Start: 10-19-2022 End: 12-19-2022 ALBUMIN/CREAT RATIO RND UR ALBUMIN/CREAT RATIO RND UR Lab Routine Type 2 diabetes mellitus without complication, without long-term current use of insulin (HCC) Expected: 10/19/2022 (Approximate), Expires: 12/19/2022 [facility] Work Phone: Comment on above: Expected: 10/19/2022 (Approximate), Expires: 12/19/2022 Start: 10-19-2022 End: 12-19-2022 CBC W Auto Differential panel - Blood CBC + DIFF Lab Routine Mixed hyperlipidemia Type 2 diabetes mellitus without complication, without long-term current use of insulin (HCC) Expected: 10/19/2022 (Approximate), Expires: 12/19/2022 [facility] Work Phone: Comment on above: Expected: 10/19/2022 (Approximate), Expires: 12/19/2022 Start: 10-19-2022 End: 12-19-2022 Comprehensive metabolic 2000 panel - Serum or Plasma COMP METABOLIC PANEL Lab Routine Mixed hyperlipidemia Type 2 diabetes mellitus without complication, without long-term current use of insulin (HCC) Expected: 10/19/2022 (Approximate), Expires: 12/19/2022 [facility] Work Phone: Comment on above: Expected: 10/19/2022 (Approximate), Expires: 12/19/2022 Start: 10-19-2022 End: 12-19-2022 Hemoglobin A1c in Blood HGB A1C Lab Routine Type 2 diabetes mellitus without complication, without long-term current use of insulin (HCC) Expected: 10/19/2022 (Approximate), Expires: 12/19/2022 [facility] Work Phone: Comment on above: Expected: 10/19/2022 (Approximate), Expires: 12/19/2022 Start: 10-19-2022 End: 12-19-2022 Lipid 1996 panel - Serum or Plasma LIPID PANEL BASIC Lab Routine Mixed hyperlipidemia Expected: 10/19/2022 (Approximate), Expires: 12/19/2022 [facility] Work Phone: Comment on above: Expected: 10/19/2022 (Approximate), Expires: 12/19/2022 Start: 09-25-2022 Hemoglobin A1c/Hemoglobin.total in Blood HBA1C [facility] Start: 08-17-2022 ADVANCE DIRECTIVE DISCUSSION ADVANCE DIRECTIVE DISCUSSION [facility] Start: 07-17-2022 End: 09-16-2022 CBC panel - Blood by Automated count CBC Lab Routine Essential hypertension Expected: 07/17/2022 (Approximate), Expires: 09/16/2022 [facility] Work Phone: Comment on above: Expected: 07/17/2022 (Approximate), Expires: 09/16/2022 Start: 07-17-2022 End: 09-16-2022 Comprehensive metabolic 2000 panel - Serum or Plasma COMP METABOLIC PANEL Lab Routine Mixed hyperlipidemia Type 2 diabetes mellitus without complication, without long-term current use of insulin (HCC) Essential hypertension Expected: 07/17/2022 (Approximate), Expires: 09/16/2022 [facility] Work Phone: Comment on above: Expected: 07/17/2022 (Approximate), Expires: 09/16/2022 Start: 07-17-2022 End: 09-16-2022 Hemoglobin A1c in Blood HGB A1C Lab Routine Type 2 diabetes mellitus without complication, without long-term current use of insulin (HCC) Expected: 07/17/2022 (Approximate), Expires: 09/16/2022 [facility] Work Phone: Comment on above: Expected: 07/17/2022 (Approximate), Expires: 09/16/2022 Start: 07-17-2022 End: 09-16-2022 Lipid 1996 panel - Serum or Plasma LIPID PANEL BASIC Lab Routine Mixed hyperlipidemia Type 2 diabetes mellitus without complication, without long-term current use of insulin (HCC) Essential hypertension Expected: 07/17/2022 (Approximate), Expires: 09/16/2022 [facility] Work Phone: Comment on above: Expected: 07/17/2022 (Approximate), Expires: 09/16/2022 Start: 07-13-2022 End: 09-12-2022 Bacteria identified in Urine by Culture URINE CULTURE Microbiology Routine Burning with urination Expected: 07/13/2022, Expires: 09/12/2022 [facility] Work Phone: Comment on above: Expected: 07/13/2022 , Expires: 09/12/2022 Start: 06-04-[address] [facility] Start: 06-04-2022 Screening for malign ant neoplasm of breast Mammogram Screening [facility] Start: 04-17-2022 Hemoglobin A1c/Hemoglobin.total in Blood HBA1C [facility] Start: 04-17-2022 [facility] Start: 03-18-2022 Hepatitis B surface antibody level LDL CHOLESTEROL [facility] Start: 02-26-2022 Hemoglobin A1c/Hemoglobin.total in Blood HBA1C [facility] Start: 01-21-2022 End: 03-23-2022 CBC panel - Blood by Automated count CBC Lab Routine Cerebrovascular accident (CVA), unspecified mechanism (HCC) Uncontrolled type 2 diabetes mellitus with hyperglycemia (HCC) Essential hypertension Expected: 01/21/2022, Expires: 03/23/2022 [facility] Work Phone: Comment on above: Expected: 01/21/2022 , Expires: 03/23/2022 Start: 01-21-2022 End: 03-23-2022 Comprehensive metabolic 2000 panel - Serum or Plasma COMP METABOLIC PANEL Lab Routine Uncontrolled type 2 diabetes mellitus with hyperglycemia (HCC) Mixed hyperlipidemia Expected: 01/21/2022 (Approximate), Expires: 03/23/2022 [facility] Work Phone: Comment on above: Expected: 01/21/2022 (Approximate), Expires: 03/23/2022 Start: 01-21-2022 End: 03-23-2022 Hemoglobin A1c/Hemoglobin.total in Blood HGB A1C Lab Routine Uncontrolled type 2 diabetes mellitus with hyperglycemia (HCC) Expected: 01/21/2022 (Approximate), Expires: 03/23/2022 [facility] Work Phone: Comment on above: Expected: 01/21/2022 (Approximate), Expires: 03/23/2022 Start: 01-21-2022 End: 03-23-2022 LIPID PANEL BASIC LIPID PANEL BASIC Lab Routine Uncontrolled type 2 diabetes mellitus with hyperglycemia (HCC) Mixed hyperlipidemia Expected: 01/21/2022 (Approximate), Expires: 03/23/2022 [facility] Work Phone: Comment on above: Expected: 01/21/2022 (Approximate), Expires: 03/23/2022 Start: 12-02-2021 End: 02-01-2022 LIPID PANEL BASIC LIPID PANEL BASIC Lab Routine Mixed hyperlipidemia Expected: 12/02/2021, Expires: 02/01/2022 [facility] Work Phone: Comment on above: Expected: 12/02/2021 , Expires: 02/01/2022 Start: 11-27-2021 End: 01-27-2022 ALBUMIN/CREAT RATIO RND UR ALBUMIN/CREAT RATIO RND UR Lab Routine Type 2 diabetes mellitus without complication, without long-term current use of insulin (HCC) Expected: 11/27/2021, Expires: 01/27/2022 [facility] Work Phone: Comment on above: Expected: 11/27/2021 , Expires: 01/27/2022 Start: 11-27-2021 End: 01-27-2022 Hemoglobin A1c/Hemoglobin.total in Blood HGB A1C Lab Routine Type 2 diabetes mellitus without complication, without long-term current use of insulin (HCC) Expected: 11/27/2021, Expires: 01/27/2022 [facility] Work Phone: Comment on above: Expected: 11/27/2021 , Expires: 01/27/2022 Start: 08-17-2021 ADVANCE DIRECTIVE DISCUSSION ADVANCE DIRECTIVE DISCUSSION [facility] Start: 08-14-2021 Hepatitis B screening URINE AL BUMIN:CREATININE RATIO [facility] Start: 06-18-2021 Hemoglobin A1c/Hemoglobin.total in Blood HBA1C [facility] Start: 05-17-2021 3 comp foot exam completed DIABETIC FOOT EXAM [facility] Start: 05-14-2021 Adult depression screening assessment DEPRESSION SCREENING [facility] Start: 04-17-2021 Influenza vaccination INFLUENZA (#1) [facility] Start: 09-23-2019 Hepatitis C antibody , confirmatory test DILATED RETINAL EXAM [facility] Start: 2012 Hepatitis B Vaccine (1 of 3 - Risk 3-dose series) Hepatitis B Vaccine (1 of 3 - Risk 3-dose series) [facility] Start: 2012 RSV Vaccine (1 - 1-d ose 60+ series) RSV Vaccine (1 - 1-dose 60+ series) [facility] Start: 2012 RSV Vaccine (1 - Ris k 60-74 years 1-dose series) RSV Vaccine (1 - Risk 60-74 years 1-dose series) [facility] Start: 2002 SHINGRIX VACCINE (1 of 2) KAHN GRIX VACCINE (1 of 2) [facility] Start: 1997 COLOGUARD (FIT-DNA) COLOGUARD (FIT-D NA) [facility] Start: [address] COLONOGRAPHY [facility] Start: 1997 FECAL OCCULT BLOOD FECAL OCCULT BLOO D [facility] Start: 1997 Screening for malign ant neoplasm of colon [facility] Start: 1997 SIGMOIDOSCOPY SIGMOIDOSCOPY [facility] Start: 1971 Pneumococcal Vaccine : 50+ (1 of 2 - PCV) Pneumococcal Vaccine: 50+ (1 of 2 - PCV) [facility] Start: [address] [facility] Start: 1970 BP CONTROLLED (<130/80) BP CONTROLLE D (<130/80) [facility] Start: 1958 Pneumococcal Vaccine : 65+ (1 of 2 - PCV) Pneumococcal Vaccine: 65+ (1 of 2 - PCV) [facility] Start: 1958 PNEUMOCOCCAL: 65+ (1 - PCV) PNEUMOCOCCAL: 65+ (1 - PCV) [facility] Start: 1957 COVID-19 VACCINE (#1) COVID-19 VACCI NE (#1) [facility] Start: 1957 COVID-19 VACCINE (1) COVID-19 VACCIN E (1) [facility] Start: 1952 COVID-19 VACCINE (#1) COVID-19 VACCI NE (#1) [facility] Bacteria identified in Urine by Culture URINE CULTURE Microbiology Routine Burning with urination Ordered: 12/28/2021 [facility] Work Phone: Comment on above: Ordered: 12/28/2021 Bacteria identified in Urine by Culture URINE CULTURE Microbiology Routine Dysuria 01/22/2023 11:11 AM EDT [facility] Work Phone: Bacteria identified in Urine by Culture URINE CULTURE Microbiology Routine Burning with urination 04/01/2023 11:04 AM EDT [facility] Work Phone: End: 03-11-2025 DBT Breast - bilateral screening TONE SCREENING [facility] Radiology Routine Encounter for screening mammogram for breast cancer 1 Occurrences starting 02/10/2024 until 03/11/2025 [facility] Work Phone: Comment on above: 1 Occurrences starti ng 02/10/2024 until 03/11/2025 End: 12-02-2022 Echocardiography ECHO Cardiology Routine Type 2 diabetes mellitus with diabetic neuropathy, without long-term current use of insulin (HCC) Mixed hyperlipidemia 1 Occurrences starting 12/02/2021 until 12/02/2022 [facility] Work Phone: Comment on above: 1 Occurrences starti ng 12/02/2021 until 12/02/2022 End: 12-02-2022 HOME SLEEP APNEA TEST (HSAT) HOME SLEEP APNEA TEST (HSAT) Procedures Routine 1 Occurrences starting 12/02/2021 until 12/02/2022 [facility] Work Phone: Comment on above: 1 Occurrences starti ng 12/02/2021 until 12/02/2022 End: 04-07-2025 MG Breast Screening TONE SCREENING Radiology Routine Encounter for screening mammogram for malignant neoplasm of breast 1 Occurrences starting 03/08/2024 until 04/07/2025 [facility] Comment on above: 1 Occurrences starti ng 03/08/2024 until 04/07/2025 End: 01-01-2023 Mra neck w/o contrst material MRA CAROTID WO IVCON Radiology Routine Ataxia 1 Occurrences starting 12/02/2021 until 01/01/2023 [facility] Work Phone: Comment on above: 1 Occurrences starti ng 12/02/2021 until 01/01/2023 OUTSIDE VENDOR CARDI AC OUTPATIENT EXTENDED RHYTHM RECORDING (WITHOUT TELEMETRY) OUTSIDE VENDOR CARDIAC OUTPATIENT EXTENDED RHYTHM RECORDING (WITHOUT TELEMETRY) Holter Routine Type 2 diabetes mellitus with diabetic neuropathy, without long-term current use of insulin (HCC) Mixed hyperlipidemia Ordered: 12/02/2021 [facility] Work Phone: Comment on above: Ordered: 12/02/2021 End: 08-08-2023 Screening mammography bi 2-view breast inc cad TONE SCREENING Radiology Routine Encounter for screening mammogram for breast cancer 1 Occurrences starting 07/09/2022 until 08/08/2023 [facility] Work Phone: Comment on above: 1 Occurrences starti ng 07/09/2022 until 08/08/2023 UA DIP, URINE (POC) UA DIP, URIN E (POC) Lab Routine Urinary frequency Ordered: 06/10/2024 [facility] Work Phone: Comment on above: Ordered: 06/10/2024 [facility] Immunizations Immunization Date Immunization Notes Care Provider Etelvina bolivar 06-24-2018 influenza virus vaccine, unspecified formulation Janet Little MD Work Phone: [facility] Payers Date Payer Category Payer Self-pay [id number] 2021 Medicare HUMANA MEDICARE HUMANA MEDICARE PPO [id number] 2021-Present [phone] [address] [place] [address] PPO [id number] 2021 Medicare HUMANA MEDICARE HUMANA MEDICARE PPO [id number] 2021-Present [phone] [place] [address] PPO [id number] 2021 Medicare (Managed Care) HUMANA M EDICARE [id number] 2021 Medicare [id number] 2016 Unknown [employer] EXCHANGE PLAN [id number] Unknown [id number] Unknown [id number] Unknown [id number] Unknown [id number] Unknown [id number] Unknown [id number] Unknown [id number] Social History Date Type Detail Facility Start: 07-13-2022 Tobacco smoking status NHIS Never smoked tobacco [facility] Start: 11-13-2021 End: 03-07-2025 Alcohol intake Current drinker of alcohol (finding) [facility] Start: 05-17-2020 End: 08-19-2020 History SDOH Alcohol Frequency 1 [facility] Start: 05-17-2020 End: 12-12-2021 History SDOH Alcohol Std Drinks 98 [facility] Start: 12-18-2010 History SDOH Alcohol Comment [facility] Start: 05-15-2020 End: 12-12-2021 History SDOH Social Connections Phone 2 [facility] Start: 05-15-2020 End: 12-12-2021 History SDOH Social Connections [facility] Start: 05-15-2020 End: 12-12-2021 History SDOH Physical Activity DPW 0 [facility] Start: 1950 Sex Assigned At Not on file [facility] Start: 11-03-2021 End: 07-21-2022 Exposure to SARS-CoV-2 (event) Not sure [facility] Start: 12-12-2021 History SDOH Financial 5 [facility] Start: 07-13-2022 Tobacco use and exposure Smokeless tobacco non-user [facility] Start: 07-02-2021 Tobacco smoking status NHIS Unknown if ever smoked [facility] Start: 02-19-2020 Spouse/ Significant Other [facility] Start: 1950 Sex Assigned At Female [facility] Start: 12-12-2021 End: 01-29-2023 History of Social function [facility] Start: 12-12-2021 End: 01-29-2023 Social connection and isolation panel [facility] Start: 07-18-2012 In a typical week, how many times do you talk on the telephone with family, friends, or neighbors? Patient refused [facility] Do you belong to any clubs or organizations such as yarsani groups, unions, fraternal or athletic groups, or school groups? Yes [facility] Are you now , , , , never or living with a partner? [facility] How often to you hav e a drink containing alcohol? Never [facility] Do you feel stress - tense, restless, nervous, or anxious, or unable to sleep at night because your mind is troubled all the time - these days [OSQ] To some extent [facility] (I/We) worried rosie er (my/our) food would run out before (I/we) got money to buy more. Never true [facility] The food that (I/we) bought just didn't last, and (I/we) didn't have money to get more. DK or Refused [facility] In the past 12 month s, was there a time when you were not able to pay the mortgage or rent on time? No [facility] Medical Equipment Procedure Code Equipment Code Equipment Origin al Text Equipment Identifier Dates Use one needle f or each dose. 1/day. [id number], [id number] Start: 05-26-2023 End: 09-29-2024 Comment on above: Use one needle for e ach dose. 1/day. Functional Status Date Assessment Result Facility 11-18-2014 Are you deaf, or do you have serious difficulty hearing No 11/18/2014 9:09 AM Cherrie Walker LPN No [facility] 11-18-2014 Are you blind, or do you have serious difficulty seeing, even when wearing glasses No 11/18/2014 9:09 AM Cherrie Walker LPN No [facility] 11-18-2014 Do you have serious difficulty walking or climbing stairs No 11/18/2014 9:09 AM Cherrie Walker LPN No [facility] 11-18-2014 Do you have difficul ty dressing or bathing No 11/18/2014 9:09 AM EDT Cherrie Oliva LPN No [facility] 11-18-2014 Because of a physica l, mental, or emotional condition, do you have difficulty doing errands alone such as visiting a physician's office or shopping No 11/18/2014 9:09 AM EDT Cherrie Oliva LPN No [facility] Mental Status Date Assessment Result Facility 11-18-2014 Because of a physica l, mental, or emotional condition, do you have serious difficulty concentrating, remembering, or making decisions No 11/18/2014 9:09 AM EDT Cherrie Oliva LPN No [facility] Clinical Notes 06-30-2012 to 03-28-2025 Telephone Encounter - Reno Moore APRN.NICK - 03/28/2025 11:27 AM EDTTelephone Encounter - Reno Moore APRN.CNP - 03/28/2025 11:27 AM Janet Ramires MD - 03/07/2025 9:40 AM EDT Note Date & Type Note Facility 03-28-2025 Telephone encounter Note The following approved medication requests have been transmitted electronically. Requested Prescriptions Pending Prescriptions Disp Refills insulin glargine 100 unit/mL (3 mL) 15 mL 11 Sig: Inject 65 Units subcutaneously daily at bedtime. Reno Moore APRN.CNP [facility] 03-28-2025 Miscellaneous Notes The following approved medication requests have been transmitted electronically. Requested Prescriptions Pending Prescriptions Disp Refills insulin glargine 100 unit/mL (3 mL) 15 mL 11 Sig: Inject 65 Units subcutaneously daily at bedtime. Reno Moore APRN.CNP Rx was entered as a med update, not actually refilled in February. The patient has been identified by name and date of : Yes Caregiver verified no other encounters exist for this prescription request: Yes Caregiver confirmed with patient/requestor that no other refills are due, in the near future, with this provider at this time: No The last office visit in the department: 03/07/2025 Does the patient have a future office visit with this provider/department: Yes 05/09/2025 Requested Prescriptions Pending Prescriptions Disp Refills insulin glargine 100 unit/mL (3 mL) 15 mL 11 Sig: Inject 65 Units subcutaneously daily at bedtime. Santa Herrera MA March 28, 2025 10:47 AM Prescription Refill Information The patient has been identified by name and date of : Yes Caregiver verified no other encounters exist for this prescription request: Yes Caregiver confirmed with patient/requestor that no other refills are due, in the near future, with this provider at this time: Yes The last office visit in the department: 03-07-25 Does the patient have a future office visit with this provider/department: Yes Requested Prescriptions Pending Prescriptions Disp Refills insulin glargine 100 unit/mL (3 mL) 15 mL 11 Sig: Inject 65 Units subcutaneously daily at bedtime. Andressa Curtis March 28, 2025 10:16 AM documented in this encounter [facility] 03-28-2025 Telephone encounter Note Rx was entered as a med update, not actually refilled in February. The patient has been identified by name and date of : Yes Caregiver verified no other encounters exist for this prescription request: Yes Caregiver confirmed with patient/requestor that no other refills are due, in the near future, with this provider at this time: No The last office visit in the department: 03/07/2025 Does the patient have a future office visit with this provider/department: Yes 05/09/2025 Requested Prescriptions Pending Prescriptions Disp Refills insulin glargine 100 unit/mL (3 mL) 15 mL 11 Sig: Inject 65 Units subcutaneously daily at bedtime. Santa Herrera MA March 28, 2025 10:[address] [facility] 03-28-2025 Telephone encounter Note Prescription Refill Information The patient has been identified by name and date of : Yes Caregiver verified no other encounters exist for this prescription request: Yes Caregiver confirmed with patient/requestor that no other refills are due, in the near future, with this provider at this time: Yes The last office visit in the department: 03-07-25 Does the patient have a future office visit with this provider/department: Yes Requested Prescriptions Pending Prescriptions Disp Refills insulin glargine 100 unit/mL (3 mL) 15 mL 11 Sig: Inject 65 Units subcutaneously daily at bedtime. Andressa Curtis March 28, 2025 10:16 AM [facility] 03-07-2025 History of Presen t illness Narrative Chief Complaint Patient presents with: F/U 3 Month HPI Maya Blanchard is a 74 year old female who presents here today for 3 month follow up. Here with her . No bowel or gi issues. Has urinary incontinence which she manages by using pads. JACLYN/Depression: Chronic. Taking Ativan 1 mg pill BID-TID, usually just using it twice a day. Is doing counseling. She was advised to start Zoloft 25 mg daily last visit in and we would discuss weaning off the Ativan. Lipid/CVA: Hx of TIA, not taking any medications. Rides stationary bike for exercise. Is trying to watch diet. Declines any further trial of statins or cholesterol lowering medications. DM: Workings with Pharmacist but put that on hold to see how her sugars were doing which were doing well until stressed. Taking Lantus 60 units daily. Denies any hypoglycemic episodes. Some neuropathy in feet. Follows with Dr. Saavedra for DM eye exams. Checking BS once a day with FBS 162-326. HTN: Not taking any medication. Denies checking BP at home, no chest pains or Shortness of Breath. Has dizziness at times. Follows with [facility] for her b/l pain. Is doing PT. She also reports episodes of forgetfulness, particularly when reading or speaking, which she attributes to stress. She denies concerns about dementia or Alzheimer's disease, and her counselor also believes these episodes are stress-related. Maya notes that her forgetfulness is more pronounced when she is with her granddaughter Maya also reports a whooshing sound in her ears, more pronounced on the left side, which she notices more after taking medications such as Tylenol. She has a pending appointment with Dr. Womack to evaluate this symptom. Past medical history, appointments, medications, allergies reviewed. Previous Medical History PAST MEDICAL HISTORY Diagnosis Date Anxiety Chronic rhinitis deviated septum Diabetes mellitus type II, uncontrolled Esophageal reflux Moderate cervical dysplasia Other abnormal glucose Other and unspecified hyperlipidemia PMH - PAST MEDICAL HISTORY OF adopted Previous Surgical History PAST SURGICAL HISTORY Procedure Laterality Date CHOLECYSTECTOMY Cholecystectomy COLONOSCOPY FLX DX W/COLLJ SPEC WHEN PFRMD 11/30/98 Per repeat in EGD 11/30/98 Colonoscopy done at same time VAGINAL HYSTERECTOMY UTERUS 250 GM/< 1975 due to precancerous cells - not cancer Family History FAMILY HISTORY Adopted: Yes Patient Allergies ALLERGIES Allergen Reactions Benadryl [Diphenhyd* Caffeine Mental Status Change Compazine [Prochlor* Imipramine Mental Status Change Tcn [Tetracyclines] GI Upset Trulicity [Dulaglut* Mental Status Change Current Medications Current Outpatient Medications on File Prior to Visit Medication Sig LORazepam (ATIVAN) 1 mg tablet Take 1 tablet by mouth three times a day as needed for up to 90 days. amoxicillin-clavulanate potassium (AUGMENTIN) 875-125 mg per tablet Take 1 tablet by mouth two times a day. Insulin Upatoi, Disposable, (BD ULTRA-FINE HEAVEN PEN NEEDLE) 32 gauge x 5/32 Use one needle for each dose. 1/day. insulin glargine 100 unit/mL (3 mL) Inject 60 Units subcutaneously daily at bedtime. cholecalciferol, Vitamin D3, (VITAMIN D3) 1,250 mcg (50,000 unit) cap capsule Take 1 capsule by mouth one time a week. acetaminophen (TYLENOL EXTRA STRENGTH) 500 mg tablet Take 2 tablets by mouth once daily. clobetasol (TEMOVATE) 0.05 % cream Apply to affected area two times a day. No current facility-administered medications on file prior to visit. Social History Social History Tobacco Use Smoking status: Never Smokeless tobacco: Never Vaping Use Vaping status: Never Used Substance Use Topics Alcohol use: Yes Comment: Sil[place]re Drug use: No EXAM: BP 140/80 Pulse 88 Resp 16 Wt 96.8 kg (213 lb 6.5 oz) BMI 37.80 kg/m General Appearance: Well appearing, alert, in no acute distress, well-hydrated, well nourished.. Lungs: Lungs clear to auscultation. No wheezing, rhonchi, rales.. Heart: RRR without murmur, gallop, or rubs. No ectopy. Health Maintenance List DTaP,Tdap,Td Vaccine(1 - Tdap) Never done Diabetic Foot Exam due on 01/30/2024 Dilated Retinal Exam due on 03/18/2024 Medicare Advantage Annual Wellness Visit Never done Urine Albumin:Creatinine Ratio due on 11/18/2024 Mammogram Screening due on 04/11/2025 Pneumococcal Vaccine: 50+(1 of 2 - PCV) due on 03/08/2025 Covid-19 Vaccine(1 - season) due on 06/10/2025 RSV Vaccine(1 - Risk 60-74 years 1-dose series) due on 09/06/2025 Shingrix Vaccine(1 of 2) due on 09/06/2025 Influenza Vaccine(1) due on 04/17/2025 HbA1C due on 04/28/2025 Annual PCP Team Chronic Disease Visit due on 10/31/2025 LDL Cholesterol due on 12/07/2025 Colorectal Cancer Screening due on 01/02/2030 Bone Density Screening Completed Advance Directive Discussion Completed Hepatitis C Screening Completed Data reviewed Appointment on 01/26/2025 Component Date Value Hemoglobin A1C 01/26/2025 8.3 (H) Estimated Average Glucose 01/26/2025 192 WBC 01/26/2025 9.95 RBC 01/26/2025 4.88 Hemoglobin 01/26/2025 14.0 Hematocrit 01/26/2025 43.4 MCV 01/26/2025 88.9 MCH 01/26/2025 28.7 MCHC 01/26/2025 32.3 RDW-CV 01/26/2025 13.3 Platelet Count 01/26/2025 308 MPV 01/26/2025 12.0 Absolute nRBC 01/26/2025 <0.01 Glucose 01/26/2025 203 (H) BUN 01/26/2025 14 Creatinine 01/26/2025 0.62 Sodium 01/26/2025 134 (L) Potassium 01/26/2025 4.4 Chloride 01/26/2025 101 CO2 01/26/2025 22 Anion Gap 01/26/2025 11 Calcium, Total 01/26/2025 8.7 Estimated Glomerular Manohar* 01/26/2025 95 1. Uncontrolled type 2 diabetes mellitus with hyperglycemia (HCC) (E11.65) HbA1c has improved from 12% in August 2023 to 8.1-8.4% over the past year, likely due to initiation of insulin therapy. Recent blood glucose levels have been elevated, with a recent reading of 300 mg/dL. - Increase insulin dose from 60 units to 65 units. - Monitor blood glucose levels closely. - Follow-up in two months to reassess HbA1c and blood glucose control. 2. Mixed hyperlipidemia (E78.2) Patient has experienced adverse effects from statins in the past and is reluctant to try another statin despite pharmacy recommendations. - Document patient's decision to decline further statin therapy. 3. Anxiety and depression (F41.9) Patient experiencing increased stress due to personal circumstances, including concerns about daughter's care. Symptoms include forgetfulness and intrusive thoughts during sleep. Currently managed with lorazepam. - Continue lorazepam as prescribed. - Discussed that symptoms are likely stress-related rather than indicative of dementia. 4. Essential hypertension (I10) Blood pressure readings not discussed in detail during this visit. - Monitor blood pressure readings. I agree with the Chief Complaint, ROS, and Past Histories independently gathered by the clinical ict support and test engineers and the remaining scribed note accurately describes my personal service to the patient. Recording using [employer] software for draft documentation of the visit was discussed with the patient/authorized wholesale representative; all questions welcomed and answered. Patient/authorized wholesale representative agreed to proceed Medical Decision Making: Problems: Moderate: 2+ stable chronic illnesses Data: Unique test result(s) reviewed: 3+ Unique test(s) ordered: 3+ Risk: Moderate: Drug management Medical Decision Making Level: 4 - Moderate Janet Little MD The documentation for this note was completed by Santa Herrera MA acting as scribe for Janet Little MD. March 07, 2025 9:48 AM. Santa Herrera MA documented in this encounter [facility] 03-07-2025 Note HNO ID: [id number] Author: JANET LITTLE MD Service: ? Author Type: Physician Type: Progress Notes Filed: 03/07/2025 18:10 Note Text: Chief Complaint Patient presents with: F/U 3 Month HPI Maya Blanchard is a 74 year old female who presents here today for 3 month follow up. Here with her . No bowel or gi issues. Has urinary incontinence which she manages by using pads. JACLYN/Depression: Chronic. Taking Ativan 1 mg pill BID-TID, usually just using it twice a day. Is doing counseling. She was advised to start Zoloft 25 mg daily last visit in and we would discuss weaning off the Ativan. Lipid/CVA: Hx of TIA, not taking any medications. Rides stationary bike for exercise. Is trying to watch diet. Declines any further trial of statins or cholesterol lowering medications. DM: Workings with Pharmacist but put that on hold to see how her sugars were doing which were doing well until stressed. Taking Lantus 60 units daily. Denies any hypoglycemic episodes. Some neuropathy in feet. Follows with Dr. Saavedra for DM eye exams. Checking BS once a day with FBS 162-326. HTN: Not taking any medication. Denies checking BP at home, no chest pains or Shortness of Breath. Has dizziness at times. Follows with [facility] for her b/l pain. Is doing PT. She also reports episodes of forgetfulness, particularly when reading or speaking, which she attributes to stress. She denies concerns about dementia or Alzheimer's disease, and her counselor also believes these episodes are stress-related. Maya notes that her forgetfulness is more pronounced when she is with her granddaughter Maya also reports a whooshing sound in her ears, more pronounced on the left side, which she notices more after taking medications such as Tylenol. She has a pending appointment with Dr. Womack to evaluate this symptom. Past medical history, appointments, medications, allergies reviewed. Previous Medical History PAST MEDICAL HISTORY Diagnosis Date Anxiety Chronic rhinitis deviated septum Diabetes mellitus type II, uncontrolled Esophageal reflux Moderate cervical dysplasia Other abnormal glucose Other and unspecified hyperlipidemia PMH - PAST MEDICAL HISTORY OF adopted Previous Surgical History PAST SURGICAL HISTORY Procedure Laterality Date CHOLECYSTECTOMY Cholecystectomy COLONOSCOPY FLX DX W/COLLJ SPEC WHEN PFRMD 11/30/98 Per repeat in EGD 11/30/98 Colonoscopy done at same time VAGINAL HYSTERECTOMY UTERUS 250 GM/< 1975 due to precancerous cells - not cancer Family History FAMILY HISTORY Adopted: Yes Patient Allergies ALLERGIES Allergen Reactions Benadryl [Diphenhyd* Caffeine Mental Status Change Compazine [Prochlor* Imipramine Mental Status Change Tcn [Tetracyclines] GI Upset Trulicity [Dulaglut* Mental Status Change Current Medications Current Outpatient Medications on File Prior to Visit Medication Sig LORazepam (ATIVAN) 1 mg tablet Take 1 tablet by mouth three times a day as needed for up to 90 days. amoxicillin-clavulanate potassium (AUGMENTIN) 875-125 mg per tablet Take 1 tablet by mouth two times a day. Insulin Upatoi, Disposable, (BD ULTRA-FINE HEAVEN PEN NEEDLE) 32 gauge x 5/32 Use one needle for each dose. 1/day. insulin glargine 100 unit/mL (3 mL) Inject 60 Units subcutaneously daily at bedtime. cholecalciferol, Vitamin D3, (VITAMIN D3) 1,250 mcg (50,000 unit) cap capsule Take 1 capsule by mouth one time a week. acetaminophen (TYLENOL EXTRA STRENGTH) 500 mg tablet Take 2 tablets by mouth once daily. clobetasol (TEMOVATE) 0.05 % cream Apply to affected area two times a day. No current facility-administered medications on file prior to visit. Social History Social History Tobacco Use Smoking status: Never Smokeless tobacco: Never Vaping Use Vaping status: Never Used Substance Use Topics Alcohol use: Yes Comment: [place]om Drug use: No EXAM: BP 140/80 Pulse 88 Resp 16 Wt 96.8 kg (213 lb 6.5 oz) BMI 37.80 kg/m? General Appearance: Well appearing, alert, in no acute distress, well-hydrated, well nourished.. Lungs: Lungs clear to auscultation. No wheezing, rhonchi, rales.. Heart: RRR without murmur, gallop, or rubs. No ectopy. Health Maintenance List DTaP,Tdap,Td Vaccine(1 - Tdap) Never done Diabetic Foot Exam due on 01/30/2024 Dilated Retinal Exam due on 03/18/2024 Medicare Advantage Annual Wellness Visit Never done Urine Albumin:Creatinine Ratio due on 11/18/2024 Mammogram Screening due on 04/11/2025 Pneumococcal Vaccine: 50+(1 of 2 - PCV) due on 03/08/2025 Covid-19 Vaccine(1 - 2023- season) due on 06/10/2025 RSV Vaccine(1 - Risk 60-74 years 1-dose series) due on 09/06/2025 Shingrix Vaccine(1 of 2) due on 09/06/2025 Influenza Vaccine(1) due on 04/17/2025 HbA1C due on 04/28/2025 Annual PCP Team Chronic Disease Visit due on 10/31/2025 LDL Cholesterol due on (more content not included)... [facility] 02-13-2025 Note HNO ID: [id number] Author: YUSUF KENDRICK APRN.TELEPHONE REPAIRER Service: ? Author Type: Nurse Practitioner Type: Progress Notes Filed: 02/13/2025 08:51 Note Text: Subjective HPI Nontoxic-appearing 74-year-old female presents urgent care complaint plaint ear pain. Duration of symptoms 2-week. Patient states pain is around earlobe. Has noticed some drainage behind her earring. Presents today for evaluation. Has used peroxide. This has not helped. Overall feels well. No fevers. Past medical history prescription medications allergies reviewed. .Patient presents with: Ear Pain: Left ear pain around piercing x 2 weeks PAST MEDICAL HISTORY Diagnosis Date Anxiety Chronic rhinitis deviated septum Diabetes mellitus type II, uncontrolled Esophageal reflux Moderate cervical dysplasia Other abnormal glucose Other and unspecified hyperlipidemia PMH - PAST MEDICAL HISTORY OF adopted PAST SURGICAL HISTORY Procedure Laterality Date CHOLECYSTECTOMY Cholecystectomy COLONOSCOPY FLX DX W/COLLJ SPEC WHEN PFRMD 11/30/98 Per repeat in EGD 11/30/98 Colonoscopy done at same time VAGINAL HYSTERECTOMY UTERUS 250 GM/< 1975 due to precancerous cells - not cancer ALLERGIES Benadryl [Diphenhydramine Hcl], Caffeine, Compazine [Prochlorperazine Edisylate], Imipramine, Tcn [Tetracyclines], and Trulicity [Dulaglutide] MEDICATIONS LORazepam (ATIVAN) 1 mg tablet Take 1 tablet by mouth three times a day as needed for up to 90 days. amoxicillin-clavulanate potassium (AUGMENTIN) 875-125 mg per tablet Take 1 tablet by mouth two times a day. Insulin Upatoi, Disposable, (BD ULTRA-FINE HEAVEN PEN NEEDLE) 32 gauge x Use one needle for each dose. 1/day. insulin glargine 100 unit/mL (3 mL) Inject 60 Units subcutaneously daily at bedtime. cholecalciferol, Vitamin D3, (VITAMIN D3) 1,250 mcg (50,000 unit) cap capsule Take 1 capsule by mouth one time a week. acetaminophen (TYLENOL EXTRA STRENGTH) 500 mg tablet Take 2 tablets by mouth once daily. clobetasol (TEMOVATE) 0.05 % cream Apply to affected area two times a day. FAMILY HISTORY Adopted: Yes Social History Tobacco Use Smoking status: Never Smokeless tobacco: Never Vaping Use Vaping status: Never Used Substance Use Topics Alcohol use: Yes Comment: Selom Drug use: No BP 140/88 Pulse 90 Temp 36.7 ?C (98.1 ?F) Resp 20 Wt 95.8 kg (211 lb 3.2 oz) SpO2 94% BMI 37.41 kg/m? Review of Systems Constitutional: Negative for chills, fever and malaise/fatigue. HENT: Positive for ear pain. Negative for congestion, ear discharge, hearing loss, sinus pain, sore throat and tinnitus. Eyes: Negative for blurred vision, pain, discharge and redness. Respiratory: Negative for cough, hemoptysis, sputum production, shortness of breath, wheezing and stridor. Cardiovascular: Negative for chest pain. Gastrointestinal: Negative for abdominal pain, diarrhea, nausea and vomiting. Musculoskeletal: Negative for myalgias. Skin: Negative for itching and rash. Neurological: Negative for dizziness and headaches. Objective Physical Exam Constitutional: General: She is not in acute distress. Appearance: She is not diaphoretic. HENT: Head: Normocephalic. Jaw: No trismus, tenderness, swelling or pain on movement. Right Ear: External ear normal. Left Ear: Tympanic membrane and ear canal normal. Ears: Comments: Mild erythema some drainage noted highlighted area. No abscess formation. No involvement of ear cartilage. No evidence of perichondritis. No adenopathy. No remote redness. Mouth/Throat: Mouth: Mucous membranes are moist. Pharynx: Oropharynx is clear. Uvula midline. No pharyngeal swelling, oropharyngeal exudate, posterior oropharyngeal erythema or uvula swelling. Eyes: Conjunctiva/sclera: Conjunctivae normal. Pupils: Pupils are equal, round, and reactive to light. Cardiovascular: Rate and Rhythm: Normal rate and regular rhythm. Heart sounds: Normal heart sounds. Pulmonary: Effort: Pulmonary effort is normal. No tachypnea, accessory muscle usage or respiratory distress. Breath sounds: Normal breath sounds. No stridor. No wheezing, rhonchi or rales. Musculoskeletal: Cervical back: Normal range of motion and neck supple. No edema, erythema, rigidity or tenderness. No pain with movement. Normal range of motion. Lymphadenopathy: Cervical: No cervical adenopathy. Skin: General: Skin is warm and dry. Neurological: Mental Status: She is alert and oriented to person, place, and time. ASSESSMENT/PLAN: 1. Cellulitis of antihelix of left ear - ICD9: 380.10, ICD10: H60.12 Diagnosed cellulitis. Placed on Keflex earring removal recommended. Patient was educated on supportive therapies. Patient will follow up with primary care provider as needed. Patient was instructed to immediately proceed to emergency room for any new, worsening, or symptoms lasting longer than anticipated. The patient's c (more content not included)... [facility] 02-13-2025 History of Presen t illness Narrative Images from the original note were not included. Subjective HPI Nontoxic-appearing 74-year-old female presents urgent care complaint plaint ear pain. Duration of symptoms 2-week. Patient states pain is around earlobe. Has noticed some drainage behind her earring. Presents today for evaluation. Has used peroxide. This has not helped. Overall feels well. No fevers. Past medical history prescription medications allergies reviewed. .Patient presents with: Ear Pain: Left ear pain around piercing x 2 weeks PAST MEDICAL HISTORY Diagnosis Date Anxiety Chronic rhinitis deviated septum Diabetes mellitus type II, uncontrolled Esophageal reflux Moderate cervical dysplasia Other abnormal glucose Other and unspecified hyperlipidemia PMH - PAST MEDICAL HISTORY OF adopted PAST SURGICAL HISTORY Procedure Laterality Date CHOLECYSTECTOMY Cholecystectomy COLONOSCOPY FLX DX W/COLLJ SPEC WHEN PFRMD 11/30/98 Per repeat in EGD 11/30/98 Colonoscopy done at same time VAGINAL HYSTERECTOMY UTERUS 250 GM/< 1975 due to precancerous cells - not cancer ALLERGIES Benadryl [Diphenhydramine Hcl], Caffeine, Compazine [Prochlorperazine Edisylate], Imipramine, Tcn [Tetracyclines], and Trulicity [Dulaglutide] MEDICATIONS LORazepam (ATIVAN) 1 mg tablet Take 1 tablet by mouth three times a day as needed for up to 90 days. amoxicillin-clavulanate potassium (AUGMENTIN) 875-125 mg per tablet Take 1 tablet by mouth two times a day. Insulin Upatoi, Disposable, (BD ULTRA-FINE HEAVEN PEN NEEDLE) 32 gauge x Use one needle for each dose. 1/day. insulin glargine 100 unit/mL (3 mL) Inject 60 Units subcutaneously daily at bedtime. cholecalciferol, Vitamin D3, (VITAMIN D3) 1,250 mcg (50,000 unit) cap capsule Take 1 capsule by mouth one time a week. acetaminophen (TYLENOL EXTRA STRENGTH) 500 mg tablet Take 2 tablets by mouth once daily. clobetasol (TEMOVATE) 0.05 % cream Apply to affected area two times a day. FAMILY HISTORY Adopted: Yes Social History Tobacco Use Smoking status: Never Smokeless tobacco: Never Vaping Use Vaping status: Never Used Substance Use Topics Alcohol use: Yes Comment: Selom Drug use: No BP 140/88 Pulse 90 Temp 36.7 C (98.1 F) Resp 20 Wt 95.8 kg (211 lb 3.2 oz) SpO2 94% BMI 37.41 kg/m Review of Systems Constitutional: Negative for chills, fever and malaise/fatigue. HENT: Positive for ear pain. Negative for congestion, ear discharge, hearing loss, sinus pain, sore throat and tinnitus. Eyes: Negative for blurred vision, pain, discharge and redness. Respiratory: Negative for cough, hemoptysis, sputum production, shortness of breath, wheezing and stridor. Cardiovascular: Negative for chest pain. Gastrointestinal: Negative for abdominal pain, diarrhea, nausea and vomiting. Musculoskeletal: Negative for myalgias. Skin: Negative for itching and rash. Neurological: Negative for dizziness and headaches. Objective Physical Exam Constitutional: General: She is not in acute distress. Appearance: She is not diaphoretic. HENT: Head: Normocephalic. Jaw: No trismus, tenderness, swelling or pain on movement. Right Ear: External ear normal. Left Ear: Tympanic membrane and ear canal normal. Ears: Comments: Mild erythema some drainage noted highlighted area. No abscess formation. No involvement of ear cartilage. No evidence of perichondritis. No adenopathy. No remote redness. Mouth/Throat: Mouth: Mucous membranes are moist. Pharynx: Oropharynx is clear. Uvula midline. No pharyngeal swelling, oropharyngeal exudate, posterior oropharyngeal erythema or uvula swelling. Eyes: Conjunctiva/sclera: Conjunctivae normal. Pupils: Pupils are equal, round, and reactive to light. Cardiovascular: Rate and Rhythm: Normal rate and regular rhythm. Heart sounds: Normal heart sounds. Pulmonary: Effort: Pulmonary effort is normal. No tachypnea, accessory muscle usage or respiratory distress. Breath sounds: Normal breath sounds. No stridor. No wheezing, rhonchi or rales. Musculoskeletal: Cervical back: Normal range of motion and neck supple. No edema, erythema, rigidity or tenderness. No pain with movement. Normal range of motion. Lymphadenopathy: Cervical: No cervical adenopathy. Skin: General: Skin is warm and dry. Neurological: Mental Status: She is alert and oriented to person, place, and time. ASSESSMENT/PLAN: 1. Cellulitis of antihelix of left ear - ICD9: 380.10, ICD10: H60.12 Diagnosed cellulitis. Placed on Keflex earring removal recommended. Patient was educated on supportive therapies. Patient will follow up with primary care provider as needed. Patient was instructed to immediately proceed to emergency room for any new, worsening, or symptoms lasting longer than anticipated. The patient's clinical presentation is otherwise unremarkable at this time. Based on exam and clinical finding, the patient is stable for discharge. Plan of care was discussed with patient. Patient verbalizes understanding and agrees to plan of care. This note was generated using [employer] software. It may contain errors in wording, punctuation, or spelling. Yusuf Kendrick APRN.NICK documented in this encounter [facility] 02-07-2025 History of Presen t illness Narrative Maya Blanchard is identified & reviewed as part of population health initiative focused on STAR measures care gaps through data from [employer] (insurer) as a potential candidate for statin therapy with no prescription claims processes for a statin medication in this calendar year. Patient has: PCP at [facility] Patient has: diabetes Guideline recommendation: Per 2019 ACC/AHA guidelines, patient qualifies for at least a moderate intensity statin due to history of diabetes, regardless of LDL. Status: Patient is not on statin therapy. Has tried the following statin(s): atorvastatin 80 mg. Does not meet NLA criteria for statin intolerance (minimum of 2 statins tried, with 1 at lowest approved dosage) and statin therapy should be initiated. Follow-up: Routed to primary care pharmacist to coordinate care VBO Outcomes: Pending primary care pharmacist outreach Yenni Og RPh [facility] Pharm[facility] Team documented in this encounter [facility] 02-07-2025 Note HNO ID: [id number] Author: DARCY PALMA RPh Service: ? Author Type: Pharmacist Type: Progress Notes Filed: 03/06/2025 15:46 Note Text: Follow-up: 03/06/25: Provider has not responded - resent statin recommendation VBO Outcomes: Pending outreach to provider - patient has upcoming PCP visit on 03/07/25 Darcy Palma PharmD, GAGAN Primary Care Clinical Associate [facility] 02-07-2025 Note HNO ID: [id number] Author: DARCY PALMA RPh Service: ? Author Type: Pharmacist Type: Progress Notes Filed: 03/13/2025 10:45 Note Text: Follow-up: Provider agreeable; was discussed with patient at recent PCP visit on 03/07/25 VBO Outcomes: Declined by patient (Per PCP visit encounter on 03/07/25, Patient has experienced adverse effects from statins in the past and is reluctant to try another statin despite pharmacy recommendations. - Document patient's decision to decline further statin therapy.) Darcy Palma PharmD, GAGAN Primary Care Clinical Associate [facility] 02-07-2025 Note HNO ID: [id number] Author: DARCY PALMA RPh Service: ? Author Type: Pharmacist Type: Progress Notes Filed: 02/27/2025 15:15 Note Text: Follow-up: 02/13/25: Recommendation routed to provider to consider prior to visit on 03/07/25 VBO Outcomes: Pending outreach to provider Darcy Palma, PharmD, BCACP Primary Care Clinical Associate [facility] 02-07-2025 Note HNO ID: [id number] Author: YENNI OG RPh Service: ? Author Type: Pharmacist Type: Progress Notes Filed: 02/07/2025 10:01 Note Text: Maya Blanchard is identified AND reviewed as part of population health initiative focused on STAR measures care gaps through data from [employer] (insurer) as a potential candidate for statin therapy with no prescription claims processes for a statin medication in this calendar year. Patient has: PCP at [facility] Patient has: diabetes Guideline recommendation: Per 2019 ACC/AHA guidelines, patient qualifies for at least a moderate intensity statin due to history of diabetes, regardless of LDL. Status: Patient is not on statin therapy. Has tried the following statin(s): atorvastatin 80 mg. Does not meet NLA criteria for statin intolerance (minimum of 2 statins tried, with 1 at lowest approved dosage) and statin therapy should be initiated. Follow-up: Routed to primary care pharmacist to coordinate care VBO Outcomes: Pending primary care pharmacist outreach Yenni Og RPh [facility] 02-07-2025 Note Patient Outreach ( POHE) MAYA BLANCHARD ([id number]) 1950 F Date Time Provider Department 02/07[facility] During your visit today, we recorded the following information about you: Yenni Og RPh 02/07/2025 10:01 AM Signed Maya Blanchard is identified AND reviewed as part of population health initiative focused on STAR measures care gaps through data from [employer] (insurer) as a potential candidate for statin therapy with no prescription claims processes for a statin medication in this calendar year. Patient has: PCP at [facility] Patient has: diabetes Guideline recommendation: Per 2019 ACC/AHA guidelines, patient qualifies for at least a moderate intensity statin due to history of diabetes, regardless of LDL. Status: Patient is not on statin therapy. Has tried the following statin(s): atorvastatin 80 mg. Does not meet NLA criteria for statin intolerance (minimum of 2 statins tried, with 1 at lowest approved dosage) and statin therapy should be initiated. Follow-up: Routed to primary care pharmacist to coordinate care VBO Outcomes: Pending primary care pharmacist outreach Yenni Og [facility] Care Pharmacy Team Darcy Palma [facility] 02/27/2025 3:15 PM Addendum Follow-up: 02/13/25: Recommendation routed to provider to consider prior to visit on 03/07/25 VBO Outcomes: Pending outreach to provider Darcy Palma PharmD, GAGAN Primary Care Clinical Associate [facility] Of [facility] Darcy Palma [facility] 03/06/2025 3:46 PM Signed Follow-up: 03/06/25: Provider has not responded - resent statin recommendation VBO Outcomes: Pending outreach to provider - patient has upcoming PCP visit on 03/07/25 Darcy Palma PharmD, GAGAN Primary Care Clinical Associate [facility] Darcy Palma [facility] 03/13/2025 10:45 AM Addendum Follow-up: Provider agreeable; was discussed with patient at recent PCP visit on 03/07/25 VBO Outcomes: Declined by patient (Per PCP visit encounter on 03/07/25, Patient has experienced adverse effects from statins in the past and is reluctant to try another statin despite pharmacy recommendations. - Document patient's decision to decline further statin therapy.) Darcy Palma PharmD, GAGAN Primary Care Clinical Associate [facility] Of Women Allergies As of Date: 02/07/2025 Noted Allergy Reaction BENADRYL (DIPHENHYDRAMINE HCL) 07/17/2005 CAFFEINE 08/14/2005 1 - Mental Status Change COMPAZINE (PROCHLORPERAZINE EDISY*07/17/2005 IMIPRAMINE 08/14/2005 1 - Mental Status Change TCN (TETRACYCLINES) 08/14/2005 8 - GI Upset TRULICITY (DULAGLUTIDE) 10/21/2022 1 - Mental Status Change Date Reviewed: 10/31/2024 Reviewed by: Santa Herrera MA - Fully Assessed Reason for Visit: Allied Health Visit [5] Cmt: SUPD Prescriptions as of 03/13/2025 - insulin glargine 100 unit/mL (3 mL) Inject 65 Units subcutaneously daily at bedtime. - LORazepam (ATIVAN) 1 mg tablet Take 1 tablet by mouth three times a day as needed for up to 90 days. - Insulin Upatoi, Disposable, (BD ULTRA-FINE HEAVEN PEN NEEDLE) 32 gauge x Use one needle for each dose. 1/day. - cholecalciferol, Vitamin D3, (VITAMIN D3) 1,250 mcg (50,000 unit) cap capsule Take 1 capsule by mouth one time a week. - acetaminophen (TYLENOL EXTRA STRENGTH) 500 mg tablet Take 2 tablets by mouth once daily. - clobetasol (TEMOVATE) 0.05 % cream Apply to affected area two times a day. Problem List As Of Date 02/07/2025 Noted Resolved ESOPHAGEAL REFLUX [K21.9] CHRONIC RHINITIS [J31.0] 09/12/2005 DYSMETABOLIC SYNDROME X [E88.810] 09/12/2005 09/02/2007 Mixed hyperlipidemia [E78.2] Other abnormal glucose [R73.09] 08/28/2016 ABNORMAL PAP SMEAR OF CERVIX NEC AND HPV [R89.6]09/02/2007 Essential hypertension, benign [I10] 09/02/2007 06/30/2012 Nonspecific abnormal results of thyroid functio*10/05/2007 08/28/2016 Elevated BP [TLN3489] 06/30/2012 08/28/2016 Type 2 diabetes mellitus with hyperglycemia (HC*05/26/2023 Anxiety and depression [F41.9, F32.A] 08/28/2016 Essential hypertension [I10] 08/28/2016 History of stroke [Z86.73] 12/02/2021 Non-compliance [Z91.199] 12/03/2021 Type 2 diabetes mellitus with diabetic neuropat*10/21/2022 Type 2 diabetes mellitus with peripheral vascul*12/02/2021 Current use of insulin (HCC) [Z79.4] 05/26/2023 Major depressive disorder, recurrent, mild (HCC*08/28/2023 Class 2 severe obesity with serious comorbidity*08/28/2023 Encounter Status:Closed by YENNI OG on 02/07/25 [facility] 01-17-2025 Telephone encounter Note Patient returned call and given provider's message below and patient verbalized understanding. Monserrat Pagan RN [facility] 01-17-2025 Miscellaneous Notes Patient returned call and given provider's message below and patient verbalized understanding. Monserrat Pagan RN Called and left a voicemail for the Patient to call back and ask for a nurse to receive the providers message. Malika Morales RN Lab sordered Janet Little MD Patient calls to ask if provider wants to order any lab work prior to her upcoming appointment on 02/07/2025. Patient last had a HBG A1C, CMP, and Lipid Panel completed on 12/07/2024. Please review and advise, Axel Chavez RN documented in this encounter [facility] 01-16-2025 Telephone encounter Note Called and left a voicemail for the Patient to call back and ask for a nurse to receive the providers message. Malika Morales, RN T [facility] 01-16-2025 Telephone encounter Note Lab sordered Janet Little MD [facility] 01-16-2025 Telephone encounter Note Patient calls to ask if provider wants to order any lab work prior to her upcoming appointment on 02/07/2025. Patient last had a HBG A1C, CMP, and Lipid Panel completed on 12/07/2024. Please review and advise, Axel Chavez RN [facility] 01-10-2025 Telephone encounter Note Approved. PDMP website checked and validated. All prescriptions have been APPROPRIATELY filled. No suspicious activity was identified. 01/10/2025 by Reno Moore APRN.CNP The following approved medication requests have been transmitted electronically. Requested Prescriptions Signed Prescriptions Disp Refills LORazepam (ATIVAN) 1 mg tablet 90 tablet 2 Sig: Take 1 tablet by mouth three times a day as needed for up to 90 days. Authorizing Provider: RENO MOORE APRN.CNP T [facility] 01-10-2025 Miscellaneous Notes Approved. PDMP website checked and validated. All prescriptions have been APPROPRIATELY filled. No suspicious activity was identified. 01/10/2025 by Reno Moore APRN.CNP The following approved medication requests have been transmitted electronically. Requested Prescriptions Signed Prescriptions Disp Refills LORazepam (ATIVAN) 1 mg tablet 90 tablet 2 Sig: Take 1 tablet by mouth three times a day as needed for up to 90 days. Authorizing Provider: RENO MOORE APRN.NICK Patient has been identified by name and date of : yes Patient phones for refill(s): Requested Prescriptions Pending Prescriptions Disp Refills LORazepam (ATIVAN) 1 mg tablet 90 tablet 2 Sig: Take 1 tablet by mouth three times a day as needed for up to 90 days. Date of last office visit in primary care: 10/31/2024 Date of next office visit in primary care: 02/07/2025 Please advise. Thank you. Raiza Najera MA. Patient has been identified by name and date of : Yes Patient phones for refill(s): Lorazepam 1 mg Date of last office visit in primary care: 10/31/2024 Date of next office visit in primary care: 02/07/2025 Please advise. Thank you. Jody Dan. documented in this encounter [facility] 01-10-2025 Telephone encounter Note Patient has been identified by name and date of : yes Patient phones for refill(s): Requested Prescriptions Pending Prescriptions Disp Refills LORazepam (ATIVAN) 1 mg tablet 90 tablet 2 Sig: Take 1 tablet by mouth three times a day as needed for up to 90 days. Date of last office visit in primary care: 10/31/2024 Date of next office visit in primary care: 02/07/2025 Please advise. Thank you. Raiza Najera MA. [facility] 01-10-2025 Telephone encounter Note Patient has been identified by name and date of : Yes Patient phones for refill(s): Lorazepam 1 mg Date of last office visit in primary care: 10/31/2024 Date of next office visit in primary care: 02/07/2025 Please advise. Thank you. Jody Dan. [facility] 12-21-2024 Note HNO ID: [id number] Author: DASIA CORONA MA Service: ? Author Type: Asset Protection Detective Type: Progress Notes Filed: 12/21/2024 14:15 Note Text: POPULATION HEALTH NAVIGATION OUTREACH Action/FYI Gaps due: AWV DIABETIC RETINAL EXAM KED Mammo 04/11/25 No HCCs No med adherence. Reason for Outreach Care Gap/HCC or Scheduling Wellness Visits Care Gaps due: Medicare Annual Wellness Visit Breast Cancer Screening Diabetic Eye Exam KED Patient Contacted: Unable or unnecessary to reach patient: Left message FloTimet message sent Updated appointment notes Navigation Signature: Dasia Corona MA December 21, 2024 2:11 PM [facility] 12-21-2024 History of Presen t illness Narrative POPULATION HEALTH NAVIGATION OUTREACH Action/FYI Gaps due: AWV DIABETIC RETINAL EXAM KED Mammo 04/11/25 No HCCs No med adherence. Reason for Outreach Care Gap/HCC or Scheduling Wellness Visits Care Gaps due: Medicare Annual Wellness Visit Breast Cancer Screening Diabetic Eye Exam KED Patient Contacted: Unable or unnecessary to reach patient: Left message Jetpachart message sent Updated appointment notes Navigation Signature: Dasia Corona MA December 21, 2024 2:11 PM documented in this encounter [facility] 12-21-2024 Note Patient Outreach (CHRISTOPHER TNAV) MAYA BLANCHARD ([id number]) 1950 F Date Time Provider Department 12/21/24 DASIA CORONA During your visit today, we recorded the following information about you: Dasia Corona MA 12/21/2024 2:15 PM Signed POPULATION HEALTH NAVIGATION OUTREACH Action/FYI Gaps due: AWV DIABETIC RETINAL EXAM KED Mammo 04/11/25 No HCCs No med adherence. Reason for Outreach Care Gap/HCC or Scheduling Wellness Visits Care Gaps due: Medicare Annual Wellness Visit Breast Cancer Screening Diabetic Eye Exam KED Patient Contacted: Unable or unnecessary to reach patient: Left message Jetpachart message sent Updated appointment notes Navigation Signature: Dasia Corona MA December 21, 2024 2:11 PM Allergies As of Date: 12/21/2024 Noted Allergy Reaction BENADRYL (DIPHENHYDRAMINE HCL) 07/17/2005 CAFFEINE 08/14/2005 1 - Mental Status Change COMPAZINE (PROCHLORPERAZINE EDISY*07/17/2005 IMIPRAMINE 08/14/2005 1 - Mental Status Change TCN (TETRACYCLINES) 08/14/2005 8 - GI Upset TRULICITY (DULAGLUTIDE) 10/21/2022 1 - Mental Status Change Date Reviewed: 10/31/2024 Reviewed by: Santa Herrera MA - Fully Assessed Reason for Visit: Population Health Navigation Outreach [3910] Cmt: Chito otto Prescriptions as of 12/21/2024 - amoxicillin-clavulanate potassium (AUGMENTIN) 875-125 mg per tablet Take 1 tablet by mouth two times a day. - Insulin Upatoi, Disposable, (BD ULTRA-FINE HEAVEN PEN NEEDLE) 32 gauge x 5/32 Use one needle for each dose. 1/day. - sertraline (ZOLOFT) 25 mg tablet Take 1 tablet by mouth once daily. - insulin glargine 100 unit/mL (3 mL) Inject 60 Units subcutaneously daily at bedtime. - cholecalciferol, Vitamin D3, (VITAMIN D3) 1,250 mcg (50,000 unit) cap capsule Take 1 capsule by mouth one time a week. - acetaminophen (TYLENOL EXTRA STRENGTH) 500 mg tablet Take 2 tablets by mouth once daily. - clobetasol (TEMOVATE) 0.05 % cream Apply to affected area two times a day. Problem List As Of Date 12/21/2024 Noted Resolved ESOPHAGEAL REFLUX [K21.9] CHRONIC RHINITIS [J31.0] 09/12/2005 DYSMETABOLIC SYNDROME X [E88.810] 09/12/2005 09/02/2007 Mixed hyperlipidemia [E78.2] Other abnormal glucose [R73.09] 08/28/2016 ABNORMAL PAP SMEAR OF CERVIX NEC AND HPV [R89.6]09/02/2007 Essential hypertension, benign [I10] 09/02/2007 06/30/2012 Nonspecific abnormal results of thyroid functio*10/05/2007 08/28/2016 Elevated BP [KNO2213] 06/30/2012 08/28/2016 Type 2 diabetes mellitus with hyperglycemia (HC*05/26/2023 Anxiety and depression [F41.9, F32.A] 08/28/2016 Essential hypertension [I10] 08/28/2016 History of stroke [Z86.73] 12/02/2021 Non-compliance [Z91.199] 12/03/2021 Type 2 diabetes mellitus with diabetic neuropat*10/21/2022 Type 2 diabetes mellitus with peripheral vascul*12/02/2021 Current use of insulin (HCC) [Z79.4] 05/26/2023 Major depressive disorder, recurrent, mild (HCC*08/28/2023 Class 2 severe obesity with serious comorbidity*08/28/2023 Encounter Status:Closed by DASIA CORONA on 12/21/24 [facility] 11-21-2024 History of Presen t illness Narrative Primary Care Pharmacy Panel Management This patient has been identified through Specialty Integration/[employer] Diabetes Registry Review by the primary care pharmacy team. After review, determined that the patient is not a candidate for pharmacy referral at this time due to already referred/follows with pharmacy. Brittani Herzog RPh documented in this encounter [facility] 11-21-2024 Note HNO ID: [id number] Author: BRITTANI HERZOG RPh Service: ? Author Type: Pharmacist Type: Progress Notes Filed: 11/21/2024 16:23 Note Text: Primary Care Pharmacy Panel Management This patient has been identified through Specialty Integration/[employer] Diabetes Registry Review by the primary care pharmacy team. After review, determined that the patient is not a candidate for pharmacy referral at this time due to already referred/follows with pharmacy. Brittani Herzog [facility] 11-21-2024 Note Patient Outreach (PM STOW) MAYA BLANCHARD ([id number]) 1950 F Date Time Provider Department 11/21/24 BRITTANI HERZOG PMSTOW During your visit today, we recorded the following information about you: Brittani Herzog RPh 11/21/2024 4:23 PM Signed Primary Care Pharmacy Panel Management This patient has been identified through Specialty Integration/[employer] Diabetes Registry Review by the primary care pharmacy team. After review, determined that the patient is not a candidate for pharmacy referral at this time due to already referred/follows with pharmacy. Brittani Herzog [facility] Allergies As of Date: 11/21/2024 Noted Allergy Reaction BENADRYL (DIPHENHYDRAMINE HCL) 07/17/2005 CAFFEINE 08/14/2005 1 - Mental Status Change COMPAZINE (PROCHLORPERAZINE EDISY*07/17/2005 IMIPRAMINE 08/14/2005 1 - Mental Status Change TCN (TETRACYCLINES) 08/14/2005 8 - GI Upset TRULICITY (DULAGLUTIDE) 10/21/2022 1 - Mental Status Change Date Reviewed: 10/31/2024 Reviewed by: Santa Herrera MA - Fully Assessed Prescriptions as of 11/21/2024 - amoxicillin-clavulanate potassium (AUGMENTIN) 875-125 mg per tablet Take 1 tablet by mouth two times a day. - Insulin Upatoi, Disposable, (BD ULTRA-FINE HEAVEN PEN NEEDLE) 32 gauge x 5/32 Use one needle for each dose. 1/day. - LORazepam (ATIVAN) 1 mg tablet Take 1 tablet by mouth three times a day as needed for up to 90 days. - sertraline (ZOLOFT) 25 mg tablet Take 1 tablet by mouth once daily. - insulin glargine 100 unit/mL (3 mL) Inject 60 Units subcutaneously daily at bedtime. - cholecalciferol, Vitamin D3, (VITAMIN D3) 1,250 mcg (50,000 unit) cap capsule Take 1 capsule by mouth one time a week. - acetaminophen (TYLENOL EXTRA STRENGTH) 500 mg tablet Take 2 tablets by mouth once daily. - clobetasol (TEMOVATE) 0.05 % cream Apply to affected area two times a day. Problem List As Of Date 11/21/2024 Noted Resolved ESOPHAGEAL REFLUX [K21.9] CHRONIC RHINITIS [J31.0] 09/12/2005 DYSMETABOLIC SYNDROME X [E88.810] 09/12/2005 09/02/2007 Mixed hyperlipidemia [E78.2] Other abnormal glucose [R73.09] 08/28/2016 ABNORMAL PAP SMEAR OF CERVIX NEC AND HPV [R89.6]09/02/2007 Essential hypertension, benign [I10] 09/02/2007 06/30/2012 Nonspecific abnormal results of thyroid functio*10/05/2007 08/28/2016 Elevated BP [CQY4216] 06/30/2012 08/28/2016 Type 2 diabetes mellitus with hyperglycemia (HC*05/26/2023 Anxiety and depression [F41.9, F32.A] 08/28/2016 Essential hypertension [I10] 08/28/2016 History of stroke [Z86.73] 12/02/2021 Non-compliance [Z91.199] 12/03/2021 Type 2 diabetes mellitus with diabetic neuropat*10/21/2022 Type 2 diabetes mellitus with peripheral vascul*12/02/2021 Current use of insulin (HCC) [Z79.4] 05/26/2023 Major depressive disorder, recurrent, mild (HCC*08/28/2023 Class 2 severe obesity with serious comorbidity*08/28/2023 Encounter Status:Closed by BRITTANI HERZOG on 11/21/24 [facility] 11-18-2024 Telephone encounter Note Left detailed message on patients voicemail. [facility] 11-18-2024 Miscellaneous Notes Left detailed message on patients voicemail. Please let the patient know that I have sent Diflucan as requested. The following approved medication requests have been transmitted electronically. Requested Prescriptions Signed Prescriptions Disp Refills fluconazole (DIFLUCAN) 150 mg tablet 2 tablet 0 Sig: Take 1 tablet by mouth one time only for 1 dose. Repeat in 3 days as needed. Authorizing Provider: RENO MOORE APRN.CNP Patient calling she recently completed antibiotic rx and now having yeast infection symptoms. She is having vaginal itching, no discharge yet. Patient asking for a Diflucan rx to be sent to [facility] please. Pending rx if wanted, needs completed. Please advise documented in this encounter [facility] 11-18-2024 Telephone encounter Note Please let the patient know that I have sent Diflucan as requested. The following approved medication requests have been transmitted electronically. Requested Prescriptions Signed Prescriptions Disp Refills fluconazole (DIFLUCAN) 150 mg tablet 2 tablet 0 Sig: Take 1 tablet by mouth one time only for 1 dose. Repeat in 3 days as needed. Authorizing Provider: RENO MOORE APRN.TELEPHONE REPAIRER [facility] 11-18-2024 Telephone encounter Note Patient calling she recently completed antibiotic rx and now having yeast infection symptoms. She is having vaginal itching, no discharge yet. Patient asking for a Diflucan rx to be sent to [facility] pharmacy please. Pending rx if wanted, needs completed. Please advise [facility] 11-07-2024 Telephone encounter Note Patient notified of new Rx, verbalizes understanding of instructions. Rudolph Machuca LPN [facility] 11-07-2024 Miscellaneous Notes Patient notified of new Rx, verbalizes understanding of instructions. Rudolph Machuca LPN Since she has not improved with Zpak it is OK to change to Augmentin as ordered Janet Little MD Pt asking if pcp can prescribe her augmentin. Advised pt she would need an appt to allow provider to assess if augmentin is needed. Pt declined. Pt states she had appt with pcp last Mon, and was prescribed zpak for watery eyes, yahir ear pain, stuffy nose, and sore throat. States she is still having these symptoms. Please advise patient. [phone] documented in this encounter [facility] 11-07-2024 Telephone encounter Note Since she has not improved with Zpak it is OK to change to Augmentin as ordered Janet Little MD [facility] 11-07-2024 Telephone encounter Note Pt asking if pcp can prescribe her augmentin. Advised pt she would need an appt to allow provider to assess if augmentin is needed. Pt declined. Pt states she had appt with pcp last Mon, and was prescribed zpak for watery eyes, yahir ear pain, stuffy nose, and sore throat. States she is still having these symptoms. Please advise patient. [phone] [facility] 10-31-2024 History of Presen t illness Narrative /Chief Complaint Patient presents with: Illness HPI Maya Blanchard is a 74 year old female who presents here today for illness. Pt c/o sinus infection, cough, ear pain, eyes burning and watering, crusted in the mornings, headache, sore throat, head congestion x 2 weeks, she is not any worse but not any better. Only had temp for 1-2 days. No SOB or wheezing. Went to [facility] care 10/26/24 and was negative for strep. Was not tested for Covid, flu, or RSV. Has been gargling with warm water, nasal lavage, Tylenol, Claritin, but these have only helped temporarily. also ill with similar symptoms Past medical history, appointments, medications, allergies reviewed. Previous Medical History PAST MEDICAL HISTORY Diagnosis Date Anxiety Chronic rhinitis deviated septum Diabetes mellitus type II, uncontrolled Esophageal reflux Moderate cervical dysplasia Other abnormal glucose Other and unspecified hyperlipidemia PMH - PAST MEDICAL HISTORY OF adopted Previous Surgical History PAST SURGICAL HISTORY Procedure Laterality Date CHOLECYSTECTOMY Cholecystectomy COLONOSCOPY FLX DX W/COLLJ SPEC WHEN PFRMD 11/30/98 Per repeat in EGD 11/30/98 Colonoscopy done at same time VAGINAL HYSTERECTOMY UTERUS 250 GM/< 1975 due to precancerous cells - not cancer Family History FAMILY HISTORY Adopted: Yes Patient Allergies ALLERGIES Allergen Reactions Benadryl [Diphenhyd* Caffeine Mental Status Change Compazine [Prochlor* Imipramine Mental Status Change Tcn [Tetracyclines] GI Upset Trulicity [Dulaglut* Mental Status Change Current Medications Current Outpatient Medications on File Prior to Visit Medication Sig Insulin Upatoi, Disposable, (BD ULTRA-FINE HEAVEN PEN NEEDLE) 32 gauge x Use one needle for each dose. 1/day. LORazepam (ATIVAN) 1 mg tablet Take 1 tablet by mouth three times a day as needed for up to 90 days. sertraline (ZOLOFT) 25 mg tablet Take 1 tablet by mouth once daily. (Patient not taking: Reported on 10/13/2024) insulin glargine 100 unit/mL (3 mL) Inject 60 Units subcutaneously daily at bedtime. cholecalciferol, Vitamin D3, (VITAMIN D3) 1,250 mcg (50,000 unit) cap capsule Take 1 capsule by mouth one time a week. acetaminophen (TYLENOL EXTRA STRENGTH) 500 mg tablet Take 2 tablets by mouth once daily. clobetasol (TEMOVATE) 0.05 % cream Apply to affected area two times a day. No current facility-administered medications on file prior to visit. Social History Social History Tobacco Use Smoking status: Never Smokeless tobacco: Never Vaping Use Vaping status: Never Used Substance Use Topics Alcohol use: Yes Comment: Selom Drug use: No EXAM: BP 160/90 Pulse 98 Temp 37.2 C (99 F) (Tympanic) Resp 18 Wt 93.5 kg (206 lb 2.1 oz) BMI 36.51 kg/m General Appearance: Well appearing, alert, in no acute distress, well-hydrated, well nourished.. Ears: External ears normal, canals clear. Oropharynx: Lips, mucosa, and tongue normal, teeth and gums normal, oropharynx normal. Neck: Supple, no adenopathy Lungs: Lungs clear to auscultation. No wheezing, rhonchi, rales.. Heart: RRR without murmur, gallop, or rubs. No ectopy. Health Maintenance List BP Controlled (<130/80) Never done DTaP,Tdap,Td Vaccine(1 - Tdap) Never done Diabetic Foot Exam due on 01/30/2024 Dilated Retinal Exam due on 03/18/2024 Urine Albumin:Creatinine Ratio due on 11/18/2024 Mammogram Screening due on 04/11/2025 Influenza Vaccine(1) due on 02/13/2025 Pneumococcal Vaccine: 50+(1 of 2 - PCV) due on 03/08/2025 Covid-19 Vaccine(1 - 2023- season) due on 06/10/2025 RSV Vaccine(1 - Risk 60-74 years 1-dose series) due on 09/06/2025 Shingrix Vaccine(1 of 2) due on 09/06/2025 HbA1C due on 11/17/2024 LDL Cholesterol due on 08/19/2025 Annual PCP Team Chronic Disease Visit due on 09/06/2025 Colorectal Cancer Screening due on 01/02/2030 Bone Density Screening Completed Advance Directive Discussion Completed Hepatitis C Screening Completed Data reviewed none ASSESSMENT/PLAN: 1. Pharyngitis, unspecified etiology - ICD9: 462, ICD10: J02.9 (primary diagnosis) - Rapid Strep negative in the office today - STREP A MOLECULAR (POC) - AZITHROMYCIN 250 MG TABLET 2. Bacterial sinusitis - ICD9: 473.9, 041.9, ICD10: J32.9, B96.89 - Will begin treatment with Zithromax pack as directed; 1 refill give if needed - AZITHROMYCIN 250 MG TABLET Follow up prn I agree with the Chief Complaint, ROS, and Past Histories independently gathered by the clinical ict support and test engineers and the remaining scribed note accurately describes my personal service to the patient. Medical Decision Making: Problems: Low: Acute, uncomplicated illness or injury Data: Unique test(s) ordered: 1 Risk: Moderate: Drug management Medical Decision Making Level: 3 - Low Janet Little MD The documentation for this note was completed by Santa Herrera MA acting as scribe for Jaent Little MD. October 31, 2024 1:41 PM. Santa Herrera MA documented in this encounter [facility] 10-31-2024 Note HNO ID: [id number] Author: JANET LITTLE MD Service: ? Author Type: Physician Type: Progress Notes Filed: 10/31/2024 15:29 Note Text: /Chief Complaint Patient presents with: Illness HPI Maya Blanchard is a 74 year old female who presents here today for illness. Pt c/o sinus infection, cough, ear pain, eyes burning and watering, crusted in the mornings, headache, sore throat, head congestion x 2 weeks, she is not any worse but not any better. Only had temp for 1-2 days. No SOB or wheezing. [facility] and was negative for strep. Was not tested for Covid, flu, or RSV. Has been gargling with warm water, nasal lavage, Tylenol, Claritin, but these have only helped temporarily. also ill with similar symptoms Past medical history, appointments, medications, allergies reviewed. Previous Medical History PAST MEDICAL HISTORY Diagnosis Date Anxiety Chronic rhinitis deviated septum Diabetes mellitus type II, uncontrolled Esophageal reflux Moderate cervical dysplasia Other abnormal glucose Other and unspecified hyperlipidemia PMH - PAST MEDICAL HISTORY OF adopted Previous Surgical History PAST SURGICAL HISTORY Procedure Laterality Date CHOLECYSTECTOMY Cholecystectomy COLONOSCOPY FLX DX W/COLLJ SPEC WHEN PFRMD 11/30/98 Per repeat in EGD 11/30/98 Colonoscopy done at same time VAGINAL HYSTERECTOMY UTERUS 250 GM/< 1975 due to precancerous cells - not cancer Family History FAMILY HISTORY Adopted: Yes Patient Allergies ALLERGIES Allergen Reactions Benadryl [Diphenhyd* Caffeine Mental Status Change Compazine [Prochlor* Imipramine Mental Status Change Tcn [Tetracyclines] GI Upset Trulicity [Dulaglut* Mental Status Change Current Medications Current Outpatient Medications on File Prior to Visit Medication Sig Insulin Upatoi, Disposable, (BD ULTRA-FINE HEAVEN PEN NEEDLE) 32 gauge x 5/32 Use one needle for each dose. 1/day. LORazepam (ATIVAN) 1 mg tablet Take 1 tablet by mouth three times a day as needed for up to 90 days. sertraline (ZOLOFT) 25 mg tablet Take 1 tablet by mouth once daily. (Patient not taking: Reported on 10/13/2024) insulin glargine 100 unit/mL (3 mL) Inject 60 Units subcutaneously daily at bedtime. cholecalciferol, Vitamin D3, (VITAMIN D3) 1,250 mcg (50,000 unit) cap capsule Take 1 capsule by mouth one time a week. acetaminophen (TYLENOL EXTRA STRENGTH) 500 mg tablet Take 2 tablets by mouth once daily. clobetasol (TEMOVATE) 0.05 % cream Apply to affected area two times a day. No current facility-administered medications on file prior to visit. Social History Social History Tobacco Use Smoking status: Never Smokeless tobacco: Never Vaping Use Vaping status: Never Used Substance Use Topics Alcohol use: Yes Comment: Selom Drug use: No EXAM: BP 160/90 Pulse 98 Temp 37.2 ?C (99 ?F) (Tympanic) Resp 18 Wt 93.5 kg (206 lb 2.1 oz) BMI 36.51 kg/m? General Appearance: Well appearing, alert, in no acute distress, well-hydrated, well nourished.. Ears: External ears normal, canals clear. Oropharynx: Lips, mucosa, and tongue normal, teeth and gums normal, oropharynx normal. Neck: Supple, no adenopathy Lungs: Lungs clear to auscultation. No wheezing, rhonchi, rales.. Heart: RRR without murmur, gallop, or rubs. No ectopy. Health Maintenance List BP Controlled (<130/80) Never done DTaP,Tdap,Td Vaccine(1 - Tdap) Never done Diabetic Foot Exam due on 01/30/2024 Dilated Retinal Exam due on 03/18/2024 Urine Albumin:Creatinine Ratio due on 11/18/2024 Mammogram Screening due on 04/11/2025 Influenza Vaccine(1) due on 02/13/2025 Pneumococcal Vaccine: 50+(1 of 2 - PCV) due on 03/08/2025 Covid-19 Vaccine(1 - season) due on 06/10/2025 RSV Vaccine(1 - Risk 60-74 years 1-dose series) due on 09/06/2025 Shingrix Vaccine(1 of 2) due on 09/06/2025 HbA1C due on 11/17/2024 LDL Cholesterol due on 08/19/2025 Annual PCP Team Chronic Disease Visit due on 09/06/2025 Colorectal Cancer Screening due on 01/02/2030 Bone Density Screening Completed Advance Directive Discussion Completed Hepatitis C Screening Completed Data reviewed none ASSESSMENT/PLAN: 1. Pharyngitis, unspecified etiology - ICD9: 462, ICD10: J02.9 (primary diagnosis) - Rapid Strep negative in the office today - STREP A MOLECULAR (POC) - AZITHROMYCIN 250 MG TABLET 2. Bacterial sinusitis - ICD9: 473.9, 041.9, ICD10: J32.9, B96.89 - Will begin treatment with Zithromax pack as directed; 1 refill give if needed - AZITHROMYCIN 250 MG TABLET Follow up prn I agree with the Chief Complaint, ROS, and Past Histories independently gathered by the clinical ict support and test engineers and the remaining scribed note accurately describes my personal service to the patient. Medical Decision Making: Problems: Low: Acute, uncomplicated illness or injury Data: Unique test(s) ordered: 1 Risk: Moderate: (more content not included)... [facility] 10-26-2024 Note HNO ID: [id number] Author: NATACHA JACKSON APRN.NICK Service: ? Author Type: Nurse Practitioner Type: Progress Notes Filed: 10/26/2024 10:27 Note Text: CC: Patient presents with: Sore Throat: headache, nasal congestion, drainage, cough x 1 week HPI Maya Blanchard is a 74 year old female who presents with productive cough-yellow phlegm, nasal congestion-clear, sore throat, headaches and ear fullness. Symptoms started about one week ago. She has tried Coricidin HB, Tylenol and Ibuprofen. These remedies have helped. She denies N/V/D, fever, chills, SOB or chest tightness. She had pneumonia in May 2024. She reports resolution confirmed with CXR 08/21/2024. She will be seeing her grandchildren tomorrow and is mostly concerned about strep throat. She is a non-smoker and UTD on influenza, pneumonia and covid vaccines. Review of Systems Constitutional: Positive for fatigue. Negative for chills and fever. HENT: Positive for congestion, ear pain, rhinorrhea, sneezing and sore throat. Negative for sinus pressure, sinus pain and trouble swallowing. Eyes: Positive for discharge (watery). Negative for photophobia, pain, redness and itching. Respiratory: Positive for cough and wheezing. Negative for chest tightness and shortness of breath. Cardiovascular: Negative for chest pain and palpitations. Gastrointestinal: Negative for abdominal pain, diarrhea, nausea and vomiting. Musculoskeletal: Negative for arthralgias and myalgias. Skin: Negative for rash. Neurological: Positive for headaches. Negative for dizziness and numbness. PAST MEDICAL HISTORY Diagnosis Date Anxiety Chronic rhinitis deviated septum Diabetes mellitus type II, uncontrolled Esophageal reflux Moderate cervical dysplasia Other abnormal glucose Other and unspecified hyperlipidemia PMH - PAST MEDICAL HISTORY OF adopted PAST SURGICAL HISTORY Procedure Laterality Date CHOLECYSTECTOMY Cholecystectomy COLONOSCOPY FLX DX W/COLLJ SPEC WHEN PFRMD 11/30/98 Per repeat in EGD 11/30/98 Colonoscopy done at same time VAGINAL HYSTERECTOMY UTERUS 250 GM/< 1975 due to precancerous cells - not cancer ALLERGIES Benadryl [Diphenhydramine Hcl], Caffeine, Compazine [Prochlorperazine Edisylate], Imipramine, Tcn [Tetracyclines], and Trulicity [Dulaglutide] MEDICATIONS Insulin Upatoi, Disposable, (BD ULTRA-FINE HEAVEN PEN NEEDLE) 32 gauge x Use one needle for each dose. 1/day. LORazepam (ATIVAN) 1 mg tablet Take 1 tablet by mouth three times a day as needed for up to 90 days. sertraline (ZOLOFT) 25 mg tablet Take 1 tablet by mouth once daily. (Patient not taking: Reported on 10/13/2024) insulin glargine 100 unit/mL (3 mL) Inject 60 Units subcutaneously daily at bedtime. cholecalciferol, Vitamin D3, (VITAMIN D3) 1,250 mcg (50,000 unit) cap capsule Take 1 capsule by mouth one time a week. acetaminophen (TYLENOL EXTRA STRENGTH) 500 mg tablet Take 2 tablets by mouth once daily. clobetasol (TEMOVATE) 0.05 % cream Apply to affected area two times a day. FAMILY HISTORY Adopted: Yes Social History Tobacco Use Smoking status: Never Smokeless tobacco: Never Vaping Use Vaping status: Never Used Substance Use Topics Alcohol use: Yes Comment: Selom Drug use: No BP 124/80 Pulse 94 Temp 36.7 ?C (98.1 ?F) Resp 16 Wt 95.4 kg (210 lb 5.1 oz) SpO2 93% BMI 37.26 kg/m? Physical Exam Constitutional: Appearance: Normal appearance. HENT: Head: Jaw: No trismus or tenderness. Right Ear: Tympanic membrane and ear canal normal. No tenderness. Left Ear: Tympanic membrane and ear canal normal. No tenderness. Nose: Rhinorrhea present. Rhinorrhea is clear. Right Turbinates: Not swollen. Left Turbinates: Not swollen. Right Sinus: No maxillary sinus tenderness or frontal sinus tenderness. Left Sinus: No maxillary sinus tenderness or frontal sinus tenderness. Mouth/Throat: Lips: [place]. Mouth: Mucous membranes are moist. No oral lesions. Dentition: Normal dentition. Tongue: No lesions. Pharynx: Oropharynx is clear. Uvula midline. Posterior oropharyngeal erythema and postnasal drip present. No oropharyngeal exudate. Eyes: General: Lids are normal. No allergic shiner. Conjunctiva/sclera: Conjunctivae normal. Neck: Thyroid: No thyroid mass or thyroid tenderness. Cardiovascular: Rate and Rhythm: Normal rate and regular rhythm. Heart sounds: S1 normal and S2 normal. Murmur heard. Pulmonary: Effort: No tachypnea. Breath sounds: Normal breath sounds. No decreased breath sounds or wheezing. Abdominal: General: Bowel sounds are normal. Palpations: Abdomen is soft. Tenderness: There is no abdominal tenderness. Musculoskeletal: Cervical back: Normal range of motion. Right lower leg: No edema. Left lower leg: No edema. Lymphadenopathy: Cervical: No cervical adenopathy. Neurological: Mental Status: She is alert. Psychiatric: Behavior: Behavior is coop (more content not included)... [facility] 10-26-2024 History of Presen t illness Narrative CC: Patient presents with: Sore Throat: headache, nasal congestion, drainage, cough x 1 week HPI Maya Blanchard is a 74 year old female who presents with productive cough-yellow phlegm, nasal congestion-clear, sore throat, headaches and ear fullness. Symptoms started about one week ago. She has tried Coricidin HB, Tylenol and Ibuprofen. These remedies have helped. She denies N/V/D, fever, chills, SOB or chest tightness. She had pneumonia in May 2024. She reports resolution confirmed with CXR 08/21/2024. She will be seeing her grandchildren tomorrow and is mostly concerned about strep throat. She is a non-smoker and UTD on influenza, pneumonia and covid vaccines. Review of Systems Constitutional: Positive for fatigue. Negative for chills and fever. HENT: Positive for congestion, ear pain, rhinorrhea, sneezing and sore throat. Negative for sinus pressure, sinus pain and trouble swallowing. Eyes: Positive for discharge (watery). Negative for photophobia, pain, redness and itching. Respiratory: Positive for cough and wheezing. Negative for chest tightness and shortness of breath. Cardiovascular: Negative for chest pain and palpitations. Gastrointestinal: Negative for abdominal pain, diarrhea, nausea and vomiting. Musculoskeletal: Negative for arthralgias and myalgias. Skin: Negative for rash. Neurological: Positive for headaches. Negative for dizziness and numbness. PAST MEDICAL HISTORY Diagnosis Date Anxiety Chronic rhinitis deviated septum Diabetes mellitus type II, uncontrolled Esophageal reflux Moderate cervical dysplasia Other abnormal glucose Other and unspecified hyperlipidemia PMH - PAST MEDICAL HISTORY OF adopted PAST SURGICAL HISTORY Procedure Laterality Date CHOLECYSTECTOMY Cholecystectomy COLONOSCOPY FLX DX W/COLLJ SPEC WHEN PFRMD 11/30/98 Per repeat in EGD 11/30/98 Colonoscopy done at same time VAGINAL HYSTERECTOMY UTERUS 250 GM/< 1975 due to precancerous cells - not cancer ALLERGIES Benadryl [Diphenhydramine Hcl], Caffeine, Compazine [Prochlorperazine Edisylate], Imipramine, Tcn [Tetracyclines], and Trulicity [Dulaglutide] MEDICATIONS Insulin Upatoi, Disposable, (BD ULTRA-FINE HEAVEN PEN NEEDLE) 32 gauge x 32 Use one needle for each dose. 1/day. LORazepam (ATIVAN) 1 mg tablet Take 1 tablet by mouth three times a day as needed for up to 90 days. sertraline (ZOLOFT) 25 mg tablet Take 1 tablet by mouth once daily. (Patient not taking: Reported on 10/13/2024) insulin glargine 100 unit/mL (3 mL) Inject 60 Units subcutaneously daily at bedtime. cholecalciferol, Vitamin D3, (VITAMIN D3) 1,250 mcg (50,000 unit) cap capsule Take 1 capsule by mouth one time a week. acetaminophen (TYLENOL EXTRA STRENGTH) 500 mg tablet Take 2 tablets by mouth once daily. clobetasol (TEMOVATE) 0.05 % cream Apply to affected area two times a day. FAMILY HISTORY Adopted: Yes Social History Tobacco Use Smoking status: Never Smokeless tobacco: Never Vaping Use Vaping status: Never Used Substance Use Topics Alcohol use: Yes Comment: Sel[place] Drug use: No BP 124/80 Pulse 94 Temp 36.7 C (98.1 F) Resp 16 Wt 95.4 kg (210 lb 5.1 oz) SpO2 93% BMI 37.26 kg/m Physical Exam Constitutional: Appearance: Normal appearance. HENT: Head: Jaw: No trismus or tenderness. Right Ear: Tympanic membrane and ear canal normal. No tenderness. Left Ear: Tympanic membrane and ear canal normal. No tenderness. Nose: Rhinorrhea present. Rhinorrhea is clear. Right Turbinates: Not swollen. Left Turbinates: Not swollen. Right Sinus: No maxillary sinus tenderness or frontal sinus tenderness. Left Sinus: No maxillary sinus tenderness or frontal sinus tenderness. Mouth/Throat: Lips: Elroy. Mouth: Mucous membranes are moist. No oral lesions. Dentition: Normal dentition. Tongue: No lesions. Pharynx: Oropharynx is clear. Uvula midline. Posterior oropharyngeal erythema and postnasal drip present. No oropharyngeal exudate. Eyes: General: Lids are normal. No allergic shiner. Conjunctiva/sclera: Conjunctivae normal. Neck: Thyroid: No thyroid mass or thyroid tenderness. Cardiovascular: Rate and Rhythm: Normal rate and regular rhythm. Heart sounds: S1 normal and S2 normal. Murmur heard. Pulmonary: Effort: No tachypnea. Breath sounds: Normal breath sounds. No decreased breath sounds or wheezing. Abdominal: General: Bowel sounds are normal. Palpations: Abdomen is soft. Tenderness: There is no abdominal tenderness. Musculoskeletal: Cervical back: Normal range of motion. Right lower leg: No edema. Left lower leg: No edema. Lymphadenopathy: Cervical: No cervical adenopathy. Neurological: Mental Status: She is alert. Psychiatric: Behavior: Behavior is cooperative. ASSESSMENT/PLAN: 1. Viral URI with cough - ICD9: 465.9, ICD10: J06.9 (primary diagnosis) Symptoms x 1 week. Afebrile, No SOB or dyspnea. Lungs CTA. Cough with yellow phlegm. + Post nasal drip. No lymphadenopathy. History of pneumonia in May 2024. CXR 08/21/24 normal. - Discussed viral etiology and rationale for treatment. - Rapid strep negative in office today - Symptomatic treatment with prn analgesia-Tylenol and Ibuprofen - Supportive care with fluids and rest - The patient may also use OTC cough meds, without stimulants, as needed and warm salt water gargles, throat lozenges and/or OTC throat spray as needed. Delsym was recommended. - Start taking Claritin, Zyrtec or Ludivina as needed. - Follow up in 3-5 days if symptoms persist or sooner if worsening of symptoms 2. Sore throat - ICD9: 462, ICD10: J02.9 ST x 2 days. Post nasal drip present. No exudate or tonsillar swelling. - Group A strep molecular testing negative and discussed with patient min office. - Discussed supportive care treatment with fluids, rest and analgesia. - STREP A MOLECULAR (POC) 3. Heart murmur - ICD9: 785.2, ICD10: R01.1 Identified on exam. Denies chest pain,SOB, palpitations or leg edema. Patient unaware of any history of murmur. - Follow up with PCP as soon as possible. - Go to ED for red flag symptoms. Prescription instructions reviewed with patient as applicable. Potential red flag symptoms discussed with the patient. Reviewed appropriate action plan to take if red flag symptoms occur. Patient agreeable to treatment plan. Araceli Pratt Supervising provider was present and guided the care of the patient for the entire session on this date. All documentation was reviewed and agreed upon. Natacha Jackson APRN.NICK documented in this encounter [facility] 10-13-2024 History of Presen t illness Narrative Primary Care Pharmacy Visit CC (Reason for Consult): (E11.65) Uncontrolled type 2 diabetes mellitus with hyperglycemia (HCC) (primary encounter diagnosis) Goal(s): A1c <8% Last Collaborating Provider Visit: 09/06/[address] Little Maya Blanchadr is a 74 year old female presenting for follow up visit in person. Patient consents to pharmacy collaborative practice agreement. Last Pharmacy Visit: 06/30/24 Interim Events: - 08/19/24 A1c results - improvement from 8.4% to 8.2% HPI: Here with , Kali Reports doing well overall Requesting to follow up on as needed basis since BGs have been stable, and slowly improving Discussed beginning to monitor BGs later in the day a few times/week to assess for uncontrolled readings at other times a day; patient agreeable States BGs have still been improving, sometimes depends on stress levels States she was recently prescribed sertraline by PCP; however, was unable to tolerate this so no longer taking Current DM Medications: Insulin glargine (Lantus) 60 units once daily Previously Trialed DM Meds: Trulicity - GI upset Jardiance - unable to tolerate Glimepiride Metformin IR/ER- GI intolerance Diet Denies any recent changes GLYCEMIC CONTROL: Glucometer present at visit: BG log present Hypoglycemia: No Of note, in the month of August, had several more readings of in the 200s compared to this month SMBGS (Fingersticks) Date Fasting AM 10/13 167 10/12 189 10/11 164 10/10 167 10/09 212 2/22 174 10/07 186 2/20 153 219 196 2/18 192 2/17 170 2/16 146 2/15 166 214 170 213 175 12 165 09/27 177 210 149 2/9 129 2/8 136 2/7 113 AVG 166 Past medical history reviewed. ALLERGIES Allergen Reactions Benadryl [Diphenhyd* Caffeine Mental Status Change Compazine [Prochlor* Imipramine Mental Status Change Tcn [Tetracyclines] GI Upset Trulicity [Dulaglut* Mental Status Change Current Outpatient Medications Medication Sig Dispense Refill Insulin Upatoi, Disposable, (BD ULTRA-FINE HEAVEN PEN NEEDLE) 32 gauge x /32 Use one needle for each dose. 1/day. 30 Each 11 LORazepam (ATIVAN) 1 mg tablet Take 1 tablet by mouth three times a day as needed for up to 90 days. 90 tablet 2 sertraline (ZOLOFT) 25 mg tablet Take 1 tablet by mouth once daily. 30 tablet 5 insulin glargine 100 unit/mL (3 mL) Inject 60 Units subcutaneously daily at bedtime. 15 mL 11 cholecalciferol, Vitamin D3, (VITAMIN D3) 1,250 mcg (50,000 unit) cap capsule Take 1 capsule by mouth one time a week. 12 capsule 3 acetaminophen (TYLENOL EXTRA STRENGTH) 500 mg tablet Take 2 tablets by mouth once daily. clobetasol (TEMOVATE) 0.05 % cream Apply to affected area two times a day. 15 g 2 No current facility-administered medications for this visit. Pill bottles are not present. Adherence: denies missed doses. Rx coverage: Payor: [employer] MEDICARE / Plan: HU[employer] MEDICARE PPO / Product Type: PPO / Medications affordable? Yes EXAM: There were no vitals taken for this visit. Last 3 Encounter BP Readings: Date: BP: 09/06/2024 146/82 08/18/2024 140/90 06/10/2024 160/88[rechecked at end of visit[ Wt: 95.3 kg (210 lb 1.6 oz) BMI: 37.22 kg/(m^2) LABS: Lab Results Component Value Date HBA1C 8.2 08/19/2024 HBA1C 8.4 05/17/2024 HBA1C 8.3 02/16/2024 HBA1C 12.0 03/18/2021 HBA1C 11.7 11/22/2020 HBA1C 11.2 08/14/2020 Glucose 151 08/19/2024 BUN 12 08/19/2024 Creatinine 0.61 08/19/2024 Sodium 140 08/19/2024 Potassium 4.3 08/19/2024 Chloride 102 08/19/2024 CO2 28 08/19/2024 Protein, Total 7.7 08/19/2024 Albumin 4.0 08/19/2024 Calcium 9.1 08/19/2024 Alkaline Phosphatase 84 08/19/2024 Bilirubin, Total 0.6 08/19/2024 AST 20 08/19/2024 ALT 17 08/19/2024 Lab Results Component Value Date CHOL 225 08/19/2024 CHOL 225 03/18/2021 LDL 143 08/19/2024 LDL 153 03/18/2021 HDL 51 08/19/2024 HDL 44 03/18/2021 TG 153 08/19/2024 TG 138 03/18/2021 Albumin/Creat Ratio (mg/g) Date Value 11/19/2023 98 (H) eGFR-All Other Races (.) Date Value 03/18/2021 >60 Estimated Glomerular Filtration Rate (mL/min/1.73m ) Date Value 08/19/2024 95 ASSESSMENT/PLAN: 1. Uncontrolled type 2 diabetes mellitus with hyperglycemia (HCC) - ICD9: 250.02, ICD10: E11.65 - Improving control - Continue current medications - Blood glucose monitoring on a twice daily schedule. Advised patient to begin checking BGs before dinner or at bedtime 2-3x/week in addition to daily fasting readings. Advised patient to contact PharmD with any changes with BG control/higher readings than recently - Counseled on healthy diet and regular exercise - Discussed diabetic education issues of diabetes complications and monitoring required and hypoglycemic/hyperglycemic symptoms - Due for next A1c November 2024 (already ordered) Overdue Diabetes Health Maintenance: Health Maintenance - Diabetes Topic Date Due Diabetic Foot Exam 01/30/2024 Dilated Retinal Exam 03/18/2024 Follow Up: Next PCP visit: 12/23/24 Next PharmD visit: PRN basis per patient request Darcy Palma, AdrianaD, BCACP Primary Care Clinical Associate Dean Of Women I spent a total of 20 minutes on the date of the service which included preparing to see the patient, [id number] patient care, completing clinical documentation, and counseling and educating the patient/family/caregiver. documented in this encounter [facility] 10-13-2024 Note HNO ID: [id number] Author: DARCY PALMA RPh Service: ? Author Type: Pharmacist Type: Progress Notes Filed: 10/13/2024 13:22 Note Text: Primary Care Pharmacy Visit CC (Reason for Consult): (E11.65) Uncontrolled type 2 diabetes mellitus with hyperglycemia (HCC) (primary encounter diagnosis) Goal(s): A1c <8% Last Collaborating Provider Visit: 09/06/[address] Anabel Trejo Blanchard is a 74 year old female presenting for follow up visit in person. Patient consents to pharmacy collaborative practice agreement. Last Pharmacy Visit: 06/30/24 Interim Events: - 08/19/24 A1c results - improvement from 8.4% to 8.2% HPI: Here with , Kali Reports doing well overall Requesting to follow up on as needed basis since BGs have been stable, and slowly improving Discussed beginning to monitor BGs later in the day a few times/week to assess for uncontrolled readings at other times a day; patient agreeable States BGs have still been improving, sometimes depends on stress levels States she was recently prescribed sertraline by PCP; however, was unable to tolerate this so no longer taking Current DM Medications: Insulin glargine (Lantus) 60 units once daily Previously Trialed DM Meds: Trulicity - GI upset Jardiance - unable to tolerate Glimepiride Metformin IR/ER- GI intolerance Diet Denies any recent changes GLYCEMIC CONTROL: Glucometer present at visit: BG log present Hypoglycemia: No Of note, in the month of August, had several more readings of in the 200s compared to this month SMBGS (Fingersticks) Date Fasting AM 10/13 167 10/12 189 10/11 164 10/10 167 10/09 212 10/08 174 10/07 186 220 153 2/19 196 2/18 192 2/17 170 2/16 146 2/15 166 2/14 170 /13 175 212 165 2/11 177 2/10 149 2/9 129 2/8 136 2/7 113 AVG 166 Past medical history reviewed. ALLERGIES Allergen Reactions Benadryl [Diphenhyd* Caffeine Mental Status Change Compazine [Prochlor* Imipramine Mental Status Change Tcn [Tetracyclines] GI Upset Trulicity [Dulaglut* Mental Status Change Current Outpatient Medications Medication Sig Dispense Refill Insulin Upatoi, Disposable, (BD ULTRA-FINE HEAVEN PEN NEEDLE) 32 gauge x 5/32 Use one needle for each dose. 1/day. 30 Each 11 LORazepam (ATIVAN) 1 mg tablet Take 1 tablet by mouth three times a day as needed for up to 90 days. 90 tablet 2 sertraline (ZOLOFT) 25 mg tablet Take 1 tablet by mouth once daily. 30 tablet 5 insulin glargine 100 unit/mL (3 mL) Inject 60 Units subcutaneously daily at bedtime. 15 mL 11 cholecalciferol, Vitamin D3, (VITAMIN D3) 1,250 mcg (50,000 unit) cap capsule Take 1 capsule by mouth one time a week. 12 capsule 3 acetaminophen (TYLENOL EXTRA STRENGTH) 500 mg tablet Take 2 tablets by mouth once daily. clobetasol (TEMOVATE) 0.05 % cream Apply to affected area two times a day. 15 g 2 No current facility-administered medications for this visit. Pill bottles are not present. Adherence: denies missed doses. Rx coverage: Payor: [employer] MEDICARE / Plan: [employer] MEDICARE PPO / Product Type: PPO / Medications affordable? Yes EXAM: There were no vitals taken for this visit. Last 3 Encounter BP Readings: Date: BP: 09/06/2024 146/82 08/18/2024 140/90 06/10/2024 160/88[rechecked at end of visit[ Wt: 95.3 kg (210 lb 1.6 oz) BMI: 37.22 kg/(m2) LABS: Lab Results Component Value Date HBA1C 8.2 08/19/2024 HBA1C 8.4 05/17/2024 HBA1C 8.3 02/16/2024 HBA1C 12.0 03/18/2021 HBA1C 11.7 11/22/2020 HBA1C 11.2 08/14/2020 Glucose 151 08/19/2024 BUN 12 08/19/2024 Creatinine 0.61 08/19/2024 Sodium 140 08/19/2024 Potassium 4.3 08/19/2024 Chloride 102 08/19/2024 CO2 28 08/19/2024 Protein, Total 7.7 08/19/2024 Albumin 4.0 08/19/2024 Calcium 9.1 08/19/2024 Alkaline Phosphatase 84 08/19/2024 Bilirubin, Total 0.6 08/19/2024 AST 20 08/19/2024 ALT 17 08/19/2024 Lab Results Component Value Date CHOL 225 08/19/2024 CHOL 225 03/18/2021 LDL 143 08/19/2024 LDL 153 03/18/2021 HDL 51 08/19/2024 HDL 44 03/18/2021 TG 153 08/19/2024 TG 138 03/18/2021 Albumin/Creat Ratio (mg/g) Date Value 11/19/2023 98 (H) eGFR-All Other Races (.) Date Value 03/18/2021 >60 Estimated Glomerular Filtration Rate (mL/min/1.73m?) Date Value 08/19/2024 95 ASSESSMENT/PLAN: 1. Uncontrolled type 2 diabetes mellitus with hyperglycemia (HCC) - ICD9: 250.02, ICD10: E11.65 - Improving control - Continue current medications - Blood glucose monitoring on a twice daily schedule. Advised patient to begin checking BGs before dinner or at bedtime 2-3x/week in addition to daily fasting readings. Advised patient to contact PharmD with any changes with BG control/higher readings than recently - Counseled on healthy diet and regular exercise - Discussed diabetic education issues of diabetes complications and monitoring required and hypoglycemic/hyperglycemic symptoms - Due for next A1c November 2024 (a (more content not included)... [facility] 09-29-2024 Telephone encounter Note The following approved medication requests have been transmitted electronically. Requested Prescriptions Pending Prescriptions Disp Refills Insulin Upatoi, Disposable, (BD ULTRA-FINE HEAVEN PEN NEEDLE) 32 gauge x 5/32 30 Each 11 Sig: Use one needle for each dose. 1/day. Reno Moore APRN.NICK [facility] 09-29-2024 Miscellaneous Notes The following approved medication requests have been transmitted electronically. Requested Prescriptions Pending Prescriptions Disp Refills Insulin Upatoi, Disposable, (BD ULTRA-FINE HEAVEN PEN NEEDLE) 32 gauge x 5/32 30 Each 11 Sig: Use one needle for each dose. 1/day. Reno Moore APRN.CNP Prescription Refill Information The patient has been identified by name and date of : Yes Caregiver verified no other encounters exist for this prescription request: Yes Caregiver confirmed with patient/requestor that no other refills are due, in the near future, with this provider at this time: Yes The last office visit in the department: 09/06/24 Does the patient have a future office visit with this provider/department: Yes Requested Prescriptions Pending Prescriptions Disp Refills Insulin Upatoi, Disposable, (BD ULTRA-FINE HEAVEN PEN NEEDLE) 32 gauge x 5/32 30 Each 11 Sig: Use one needle for each dose. 1/day. Rowena Bethea September 29, 2024 11:16 AM documented in this encounter [facility] 09-29-2024 Telephone encounter Note Prescription Refill Information The patient has been identified by name and date of : Yes Caregiver verified no other encounters exist for this prescription request: Yes Caregiver confirmed with patient/requestor that no other refills are due, in the near future, with this provider at this time: Yes The last office visit in the department: 09/06/24 Does the patient have a future office visit with this provider/department: Yes Requested Prescriptions Pending Prescriptions Disp Refills Insulin Upatoi, Disposable, (BD ULTRA-FINE HEAVEN PEN NEEDLE) 32 gauge x 5/32 30 Each 11 Sig: Use one needle for each dose. 1/day. Rowena Bethea September 29, 2024 11:[address] [facility] 09-13-2024 Telephone encounter Note OK to refill as ordered Janet Little MD [facility] 09-13-2024 Miscellaneous Notes OK to refill as ordered Janet Little MD Patient has been identified by name and date of : Yes, Patient phones for refill(s): Requested Prescriptions Pending Prescriptions Disp Refills LORazepam (ATIVAN) 1 mg tablet Sig: Take 1 tablet by mouth three times a day as needed. Date of last office visit in primary care: 09/06/2024 Date of next office visit in primary care: 12/05/2024 Please advise. Thank you. Jody Dan. documented in this encounter [facility] 09-13-2024 Telephone encounter Note Patient has been identified by name and date of : Yes, Patient phones for refill(s): Requested Prescriptions Pending Prescriptions Disp Refills LORazepam (ATIVAN) 1 mg tablet Sig: Take 1 tablet by mouth three times a day as needed. Date of last office visit in primary care: 09/06/2024 Date of next office visit in primary care: 12/05/2024 Please advise. Thank you. Jody aDn. [facility] 09-12-2024 Telephone encounter Note Noted Janet Little MD [facility] 09-12-2024 Miscellaneous Notes Noted Janet Little MD Pt wanted you to know she is going off the Zoloft due to the following side effects. Pt having nausea, almost vomiting, no appetite, diarrhea, tired, fever, shaking,change in sleep, anxiety, restlessness and dizziness. Pt does not want anything called in to replace. Pt reports she will talk to you at her next apt. Pt declined to have her next apt moved up. Nani Garibay LPN documented in this encounter [facility] 09-12-2024 Telephone encounter Note Pt wanted you to know she is going off the Zoloft due to the following side effects. Pt having nausea, almost vomiting, no appetite, diarrhea, tired, fever, shaking,change in sleep, anxiety, restlessness and dizziness. Pt does not want anything called in to replace. Pt reports she will talk to you at her next apt. Pt declined to have her next apt moved up. Nani Garibay LPN [facility] 09-06-2024 Instructions Krysta Oliva MA - 09/06/2024 11:24 AM EST Starting Zoloft (Sertraline) 25 mg once daily. Continue using Ativan twice daily as needed. documented in this encounter [facility] 09-06-2024 History of Presen t illness Narrative Chief Complaint Patient presents with: F/U 3 Month HPI Maya Blanchard is a 74 year old female who presents here today for 3 month follow up. Pt here today for a 3 month follow up. Here today with her spouse. No bowel, Gi, or urinary concerns. Wears pad due to urinary incontinence. HTN: No taking any medications. Denies checking BP at home. No chest pains or sob. Reports dizziness. DM: Working with Pharmacist. Checking BS once daily with FBS for August running from 150-220. She is taking Lantus 60 units daily. Denies any hypoglycemic episodes. Admits to some neuropathy in feet, possibly thumbs but unsure. Follows with Ophthalmology, Dr. Saavedra every 6 months for routine eye exams. JACLYN/Depression: Chronic. Is doing Counseling and taking Ativan 1 mg taking twice daily. Has previously been on Celexa and Buspar. Notes some stressors with her 4 year old granddaughter who's Type 1 DM. Pt is anxious today, reports that she was doing fine this morning, but became nervous and started experiencing symptoms due to this appt and what she needed to discuss. Wants to discuss Ativan medication and care home medication use and potential side effects. After reviewing chart pt was on Celexa in 2017, but was in the Hospital due to CVA and was d/c on Ativan. Pt d/c Celexa due to Ativan working more efficiently for her. Pt was previously on 0.5 mg, but has increased her dosage from 0.5 mg prn to daily up to 1 mg daily, bid to tid over the years due to increased anxiety. Notes she's tried to go off Ativan herself cold turkey but was unable too. Pt reports concern about delusions, sleeping and not getting a deep sleep even with use of medication, and memory loss concerns with care home use of medication. Offered Zoloft to pt, reports that she didn't like what it did to her or what occurred when she came off it, but this occurred a long time ago. States she quit this cold turkey. Lipid/CVA: Hx of TIA, not taking any medications. Rides stationary bike for exercise, was doing PT for her knee's and trying to keep up with those exercises. Trying to watch her diet. Notes an episode where she did not recognize her and her granddaughter. Unsure if this was related to an episode of stress as she was having a very stressful day that specific day. Vit D - Vit D deficient, taking Vit D3 50,000 international unit(s) once weekly. Pain: b/l legs; has been following with Ortho Dr. Rodas, been getting injections, doing stretches, taking Tylenol prn and at bedtime Notes an episode that occurred this morning. Woke up and was fine and peaceful this morning. Then started having pain in her epigastric area, then starting having a headache, then experienced a BM. Feels numbness/tingling in her lips. Feels this is anxiety related episode. HM - Has Adv Dir/Living Will. Scheduled for Eye Exam next month. Declines RSV and Shingles vaccine. Past medical history, appointments, medications, allergies reviewed. Previous Medical History PAST MEDICAL HISTORY Diagnosis Date Anxiety Chronic rhinitis deviated septum Diabetes mellitus type II, uncontrolled Esophageal reflux Moderate cervical dysplasia Other abnormal glucose Other and unspecified hyperlipidemia PMH - PAST MEDICAL HISTORY OF adopted Previous Surgical History PAST SURGICAL HISTORY Procedure Laterality Date CHOLECYSTECTOMY Cholecystectomy COLONOSCOPY FLX DX W/COLLJ SPEC WHEN PFRMD 11/30/98 Per repeat in EGD 11/30/98 Colonoscopy done at same time VAGINAL HYSTERECTOMY UTERUS 250 GM/< 1975 due to precancerous cells - not cancer Family History FAMILY HISTORY Adopted: Yes Patient Allergies ALLERGIES Allergen Reactions Benadryl [Diphenhyd* Caffeine Mental Status Change Compazine [Prochlor* Imipramine Mental Status Change Tcn [Tetracyclines] GI Upset Trulicity [Dulaglut* Mental Status Change Current Medications Current Outpatient Medications on File Prior to Visit Medication Sig azithromycin (ZITHROMAX Z-ALVIN) 250 mg tablet Take 2 tablets day one, then, 1 tablet daily until gone. LORazepam (ATIVAN) 1 mg tablet Take 1 mg by mouth three times a day as needed. insulin glargine 100 unit/mL (3 mL) Inject 60 Units subcutaneously daily at bedtime. albuterol HFA (PROVENTIL HFA, VENTOLIN HFA) 90 mcg/actuation inhaler Inhale 2 Puffs as instructed every 4 hours as needed for wheezing/shortness of breath. (Patient not taking: Reported on 08/18/2024) fluconazole (DIFLUCAN) 150 mg tablet Take 1 tablet by mouth once daily. Repeat in 3 days as needed. (Patient not taking: Reported on 08/18/2024) cholecalciferol, Vitamin D3, (VITAMIN D3) 1,250 mcg (50,000 unit) cap capsule Take 1 capsule by mouth one time a week. acetaminophen (TYLENOL EXTRA STRENGTH) 500 mg tablet Take 2 tablets by mouth once daily. clobetasol (TEMOVATE) 0.05 % cream Apply to affected area two times a day. Insulin Upatoi, Disposable, (BD ULTRA-FINE HEAVEN PEN NEEDLE) 32 gauge x 5/32 Use one needle for each dose. 1/day. Social History Social History Tobacco Use Smoking status: Never Smokeless tobacco: Never Vaping Use Vaping status: Never Used Substance Use Topics Alcohol use: Yes Comment: Silvestre Drug use: No EXAM: BP 146/82 Pulse 78 Resp 18 Wt 95.3 kg (210 lb 1.6 oz) BMI 37.22 kg/m General Appearance: Well appearing, alert, in no acute distress, well-hydrated, well nourished. and Obese. Lungs: Lungs clear to auscultation. No wheezing, rhonchi, rales.. Heart: RRR without murmur, gallop, or rubs. No ectopy. Health Maintenance List BP Controlled (<130/80) Never done DTaP,Tdap,Td Vaccine(1 - Tdap) Never done Shingrix Vaccine(1 of 2) Never done RSV Vaccine(1 - Risk 60-74 years 1-dose series) Never done Diabetic Foot Exam due on 01/30/2024 Dilated Retinal Exam due on 03/18/2024 Advance Directive Discussion due on 08/17/2024 Influenza Vaccine(1) due on 02/13/2025 Pneumococcal Vaccine: 50+(1 of 2 - PCV) due on 03/08/2025 Covid-19 Vaccine(1 - season) due on 06/10/2025 HbA1C due on 11/17/2024 Urine Albumin:Creatinine Ratio due on 11/18/2024 Mammogram Screening due on 04/11/2025 Annual PCP Team Chronic Disease Visit due on 06/10/2025 LDL Cholesterol due on 08/19/2025 Colorectal Cancer Screening due on 01/02/2030 Bone Density Screening Completed Hepatitis C Screening Completed Data reviewed Appointment on 08/19/2024 Component Date Value Vitamin D 25 Hydroxy 08/19/2024 45.4 Cholesterol, Total 08/19/2024 225 (H) Triglyceride 08/19/2024 153 (H) HDL Cholesterol 08/19/2024 51 Non HDL Cholesterol 08/19/2024 174 (H) Fasting Time 08/19/2024 12 VLDL Cholesterol 08/19/2024 31 (H) TC:HDL Ratio 08/19/2024 4.41 LDL Cholesterol 08/19/2024 143 (H) LDL:HDL Ratio 08/19/2024 2.80 (H) Protein, Total 08/19/2024 7.7 Albumin 08/19/2024 4.0 Calcium, Total 08/19/2024 9.1 Bilirubin, Total 08/19/2024 0.6 Alkaline Phosphatase 08/19/2024 84 AST 08/19/2024 20 ALT 08/19/2024 17 Glucose 08/19/2024 151 (H) BUN 08/19/2024 12 Creatinine 08/19/2024 0.61 Sodium 08/19/2024 140 Potassium 08/19/2024 4.3 Chloride 08/19/2024 102 CO2 08/19/2024 28 Anion Gap 08/19/2024 10 Estimated Glomerular Manohar* 08/19/2024 95 Hemoglobin A1C 08/19/2024 8.2 (H) Estimated Average Glucose 08/19/2024 189 ASSESSMENT/PLAN: 1. Anxiety - ICD9: 300.00, ICD10: F41.9 (primary diagnosis) - Start Zoloft 25 mg once daily - Discuss starting Zoloft, in the future discuss weaning Ativan due to care home use use side effects. - Stable 2. Major depressive disorder, recurrent, mild (HCC) - ICD9: 296.31, ICD10: F33.0 - As noted above 3. Type 2 diabetes mellitus with diabetic neuropathy, without long-term current use of insulin (HCC) - ICD9: 250.60, 357.2, ICD10: E11.40 - Improving control - Continue current medications - Counseled on healthy diet and regular exercise - Continue working with Pharm. 4. Essential hypertension - ICD9: 401.9, ICD10: I10 - Elevated BP, improved from previous visits. - Recommend home blood pressure monitoring, to bring results to next visit - Encouraged sodium restriction, DASH or Mediterranean diet - Recommend regular aerobic exercise 5. Mixed hyperlipidemia - ICD9: 272.2, ICD10: E78.2 - Stable - Counseled on healthy diet and regular exercise 6. Vitamin D deficiency - ICD9: 268.9, ICD10: E55.9 - Continue current medication regimen. 7. History of stroke - ICD9: V12.54, ICD10: Z86.73 - Stable - Continue watching diet and exercise 8. Class 2 severe obesity with serious comorbidity and body mass index (BMI) of 35.0 to 35.9 in adult, unspecified obesity type (HCC) - ICD9: 278.01, V85.35, ICD10: E66.812, E66.01, Z68.35 Stable - Continue working on diet and exercise as able 9. Leg pain, bilateral - ICD9: 729.5, ICD10: M79.604, M79.605 - Cont f/u with Ortho - Cont doing exercises from PT 3 mo f/u with fasting labs. I agree with the Chief Complaint, ROS, and Past Histories independently gathered by the clinical ict support and test engineers and the remaining scribed note accurately describes my personal service to the patient. Medical Decision Making: Problems: Moderate: 2+ stable chronic illnesses Data: Unique test result(s) reviewed: 3+ Unique test(s) ordered: 3+ Risk: Moderate: Drug management Medical Decision Making Level: 4 - Moderate Janet Little MD The documentation for this note was completed by Krysta Oliva MA acting as scribe for Janet Little MD. September 06, 2024 10:29 AM. Krysta Oliva MA documented in this encounter [facility] 09-06-2024 Note HNO ID: [id number] Author: JANET LITTLE MD Service: ? Author Type: Physician Type: Progress Notes Filed: 09/06/2024 11:36 Note Text: Chief Complaint Patient presents with: F/U 3 Month HPI Maya Blanchard is a 74 year old female who presents here today for 3 month follow up. Pt here today for a 3 month follow up. Here today with her spouse. No bowel, Gi, or urinary concerns. Wears pad due to urinary incontinence. HTN: No taking any medications. Denies checking BP at home. No chest pains or sob. Reports dizziness. DM: Working with Pharmacist. Checking BS once daily with FBS for August running from 150-220. She is taking Lantus 60 units daily. Denies any hypoglycemic episodes. Admits to some neuropathy in feet, possibly thumbs but unsure. Follows with Ophthalmology, Dr. Saavedra every 6 months for routine eye exams. JACLYN/Depression: Chronic. Is doing Counseling and taking Ativan 1 mg taking twice daily. Has previously been on Celexa and Buspar. Notes some stressors with her 4 year old granddaughter who's Type 1 DM. Pt is anxious today, reports that she was doing fine this morning, but became nervous and started experiencing symptoms due to this appt and what she needed to discuss. Wants to discuss Ativan medication and extermination supervisor medication use and potential side effects. After reviewing chart pt was on Celexa in 2017, but was in the Hospital due to CVA and was d/c on Ativan. Pt d/c Celexa due to Ativan working more efficiently for her. Pt was previously on 0.5 mg, but has increased her dosage from 0.5 mg prn to daily up to 1 mg daily, bid to tid over the years due to increased anxiety. Notes she's tried to go off Ativan herself cold turkey but was unable too. Pt reports concern about delusions, sleeping and not getting a deep sleep even with use of medication, and memory loss concerns with care home use of medication. Offered Zoloft to pt, reports that she didn't like what it did to her or what occurred when she came off it, but this occurred a long time ago. States she quit this cold turkey. Lipid/CVA: Hx of TIA, not taking any medications. Rides stationary bike for exercise, was doing PT for her knee's and trying to keep up with those exercises. Trying to watch her diet. Notes an episode where she did not recognize her and her granddaughter. Unsure if this was related to an episode of stress as she was having a very stressful day that specific day. Vit D - Vit D deficient, taking Vit D3 50,000 international unit(s) once weekly. Pain: b/l legs; has been following with Ortho Dr. Rodas, been getting injections, doing stretches, taking Tylenol prn and at bedtime Notes an episode that occurred this morning. Woke up and was fine and peaceful this morning. Then started having pain in her epigastric area, then starting having a headache, then experienced a BM. Feels numbness/tingling in her lips. Feels this is anxiety related episode. HM - Has Adv Dir/Living Will. Scheduled for Eye Exam next month. Declines RSV and Shingles vaccine. Past medical history, appointments, medications, allergies reviewed. Previous Medical History PAST MEDICAL HISTORY Diagnosis Date Anxiety Chronic rhinitis deviated septum Diabetes mellitus type II, uncontrolled Esophageal reflux Moderate cervical dysplasia Other abnormal glucose Other and unspecified hyperlipidemia PMH - PAST MEDICAL HISTORY OF adopted Previous Surgical History PAST SURGICAL HISTORY Procedure Laterality Date CHOLECYSTECTOMY Cholecystectomy COLONOSCOPY FLX DX W/COLLJ SPEC WHEN PFRMD 11/30/98 Per repeat in EGD 11/30/98 Colonoscopy done at same time VAGINAL HYSTERECTOMY UTERUS 250 GM/< 1975 due to precancerous cells - not cancer Family History FAMILY HISTORY Adopted: Yes Patient Allergies ALLERGIES Allergen Reactions Benadryl [Diphenhyd* Caffeine Mental Status Change Compazine [Prochlor* Imipramine Mental Status Change Tcn [Tetracyclines] GI Upset Trulicity [Dulaglut* Mental Status Change Current Medications Current Outpatient Medications on File Prior to Visit Medication Sig azithromycin (ZITHROMAX Z-ALVIN) 250 mg tablet Take 2 tablets day one, then, 1 tablet daily until gone. LORazepam (ATIVAN) 1 mg tablet Take 1 mg by mouth three times a day as needed. insulin glargine 100 unit/mL (3 mL) Inject 60 Units subcutaneously daily at bedtime. albuterol HFA (PROVENTIL HFA, VENTOLIN HFA) 90 mcg/actuation inhaler Inhale 2 Puffs as instructed every 4 hours as needed for wheezing/shortness of breath. (Patient not taking: Reported on 08/18/2024) fluconazole (DIFLUCAN) 150 mg tablet Take 1 tablet by mouth once daily. Repeat in 3 days as needed. (Patient not taking: Reported on 08/18/2024) cholecalciferol, Vitamin D3, (VITAMIN D3) 1,250 mcg (50,000 unit) cap capsule Take 1 capsule by mouth one time a week. acetaminophen (TYLENOL EXTRA STRENGTH) 500 mg tablet Take 2 (more content not included)... [facility] 08-22-2024 Telephone encounter Note Call placed to patient and notified of below. Axel Chavez RN [facility] 08-22-2024 Miscellaneous Notes Call placed to patient and notified of below. Axel Chavez RN OK to refill as ordered Janet Little MD Patient calls to request refill of Z-alvin. Patient seen in on 08/18/2024 for acute cough and rhinosinusitis. Current Z-alvin end date 08/23/2024. Patient reports symptoms are improving slightly but continues to have thick green mucus. Recommended scheduling a follow up appointment for re-evaluation. Patient declines as she is seeing Dr. Little on 09/06/2024. Axel Chavez RN documented in this encounter [facility] 08-22-2024 Telephone encounter Note OK to refill as ordered Janet Little MD [facility] 08-22-2024 Telephone encounter Note Patient calls to request refill of Z-alvin. Patient seen in on 08/18/2024 for acute cough and rhinosinusitis. Current Z-alvin end date 08/23/2024. Patient reports symptoms are improving slightly but continues to have thick green mucus. Recommended scheduling a follow up appointment for re-evaluation. Patient declines as she is seeing Dr. Little on 09/06/2024. Axel Chavez RN [facility] 08-18-2024 History of Presen t illness Narrative Radiology Service Progress Note PATIENT NAME: Maya Blanchard DATE OF SERVICE: August 18, 2024 TIME: 1:09 PM PATIENT IDENTITY VERIFICATION COMPLETED USING TWO (2) IDENTIFIERS: Name and Date of confirmed by patient verbally. FALL SCREENING: Has the patient had 2 falls in the last year or 1 fall with injury or currently using an Ambulatory Assistive Device (Walker, Cane, Wheelchair, Crutches, etc.)? No PATIENT GENDER DATA: Female. status: : No status: NO. PATIENT RELEVANT IMPLANT DATA REVIEWED: Yes2 PATIENT PRESENTS WITH AN IMPLANTABLE OR ATTACHED SENIOR PREMIUM AUDITOR: No RADIOLOGY DEPARTMENT: General X-ray: Exam(s) Completed: Chest X-Ray PERIPHERAL IV DATA: Not applicable SIGNED BY: RT Sanjana(Sharlene) August 18, 2024 1:09 PM documented in this encounter [facility] 08-18-2024 Note HNO ID: [id number] Author: MACARENA DALE RT(R) Service: ? Author Type: Carrier Operator Type: Progress Notes Filed: 08/18/2024 13:17 Note Text: Radiology Service Progress Note PATIENT NAME: Maya Blanchard DATE OF SERVICE: August 18, 2024 TIME: 1:09 PM PATIENT IDENTITY VERIFICATION COMPLETED USING TWO (2) IDENTIFIERS: Name and Date of confirmed by patient verbally. FALL SCREENING: Has the patient had 2 falls in the last year or 1 fall with injury or currently using an Ambulatory Assistive Device (Walker, Cane, Wheelchair, Crutches, etc.)? No PATIENT GENDER DATA: Female. status: : No status: NO. PATIENT RELEVANT IMPLANT DATA REVIEWED: Yes2 PATIENT PRESENTS WITH AN IMPLANTABLE OR ATTACHED SENIOR PREMIUM AUDITOR: No RADIOLOGY DEPARTMENT: General X-ray: Exam(s) Completed: Chest X-Ray PERIPHERAL IV DATA: Not applicable SIGNED BY: RT Sanjana(Sharlene) August 18, 2024 1:09 PM [facility] 08-18-2024 Note HNO ID: [id number] Author: MAKEDA DENIS APRN.TELEPHONE REPAIRER Service: ? Author Type: Nurse Practitioner Type: Progress Notes Filed: 08/18/2024 13:50 Note Text: This note was created using ITDatabaseriter. Subjective Maya Blanchard is a 74 year old female. 74 year old female with PMH HTN, hyperlipidemia, DM, GERD presents for illness. Acute onset 2 weeks ago +sinus pressure +sinus pressure +cough +chest production +headache Denies dyspnea Denies abdominal pain Of note, she was diagnosed with pneumonia 05/26, treated with Z pack Was placed on Augmentin 06/06 at follow up Denies tobacco usage The history is provided by the patient. No varsity baseball coach was used. Sinus Problem This is a new problem. The current episode started 1 to 4 weeks ago. The problem occurs constantly. The problem has been unchanged. Associated symptoms include congestion, coughing and headaches. Pertinent negatives include no abdominal pain, anorexia, arthralgias, change in bowel habit, chest pain, chills, diaphoresis, fatigue, fever, joint swelling, myalgias, nausea, neck pain, numbness, rash, sore throat, swollen glands, urinary symptoms, vertigo, visual change, vomiting or weakness. Nothing aggravates the symptoms. She has tried nothing for the symptoms. The treatment provided no relief. PAST MEDICAL HISTORY Diagnosis Date Anxiety Chronic rhinitis deviated septum Diabetes mellitus type II, uncontrolled Esophageal reflux Moderate cervical dysplasia Other abnormal glucose Other and unspecified hyperlipidemia PMH - PAST MEDICAL HISTORY OF adopted PAST SURGICAL HISTORY Procedure Laterality Date CHOLECYSTECTOMY Cholecystectomy COLONOSCOPY FLX DX W/COLLJ SPEC WHEN PFRMD 11/30/98 Per repeat in EGD 11/30/98 Colonoscopy done at same time VAGINAL HYSTERECTOMY UTERUS 250 GM/< 1975 due to precancerous cells - not cancer ALLERGIES Benadryl [Diphenhydramine Hcl], Caffeine, Compazine [Prochlorperazine Edisylate], Imipramine, Tcn [Tetracyclines], and Trulicity [Dulaglutide] MEDICATIONS LORazepam (ATIVAN) 1 mg tablet Take 1 mg by mouth three times a day as needed. insulin glargine 100 unit/mL (3 mL) Inject 60 Units subcutaneously daily at bedtime. cholecalciferol, Vitamin D3, (VITAMIN D3) 1,250 mcg (50,000 unit) cap capsule Take 1 capsule by mouth one time a week. acetaminophen (TYLENOL EXTRA STRENGTH) 500 mg tablet Take 2 tablets by mouth once daily. clobetasol (TEMOVATE) 0.05 % cream Apply to affected area two times a day. Insulin Upatoi, Disposable, (BD ULTRA-FINE HEAVEN PEN NEEDLE) 32 gauge x Use one needle for each dose. 1/day. azithromycin (ZITHROMAX Z-ALVIN) 250 mg tablet Take 2 tablets day one, then, 1 tablet daily until gone. albuterol HFA (PROVENTIL HFA, VENTOLIN HFA) 90 mcg/actuation inhaler Inhale 2 Puffs as instructed every 4 hours as needed for wheezing/shortness of breath. (Patient not taking: Reported on 08/18/2024) fluconazole (DIFLUCAN) 150 mg tablet Take 1 tablet by mouth once daily. Repeat in 3 days as needed. (Patient not taking: Reported on 08/18/2024) FAMILY HISTORY Adopted: Yes Social History Tobacco Use Smoking status: Never Smokeless tobacco: Never Vaping Use Vaping status: Never Used Substance Use Topics Alcohol use: Yes Comment: Selom Drug use: No Review of Systems Constitutional: Negative for chills, diaphoresis, fatigue and fever. HENT: Positive for congestion, postnasal drip, rhinorrhea, sinus pressure and sinus pain. Negative for sore throat. Eyes: Negative for pain, discharge, redness and itching. Respiratory: Positive for cough. Negative for apnea, choking and chest tightness. Cardiovascular: Negative for chest pain. Gastrointestinal: Negative for abdominal pain, anorexia, change in bowel habit, nausea and vomiting. Musculoskeletal: Negative for arthralgias, joint swelling, myalgias and neck pain. Skin: Negative for rash. Allergic/Immunologic: Negative for environmental allergies, food allergies and immunocompromised state. Neurological: Positive for headaches. Negative for dizziness, vertigo, facial asymmetry, weakness and numbness. Hematological: Negative for adenopathy. Does not bruise/bleed easily. Psychiatric/Behavioral: Negative for agitation. Objective BP 140/90 Pulse 96 Temp 36.9 ?C (98.4 ?F) Resp 19 Wt 95.6 kg (210 lb 12.2 oz) SpO2 95% BMI 37.33 kg/m? Physical Exam Vitals and nursing note reviewed. Constitutional: General: She is not in acute distress. Appearance: Normal appearance. She is normal weight. She is not ill-appearing, toxic-appearing or diaphoretic. HENT: Head: Normocephalic and atraumatic. Comments: +frontal sinus pressure +maxillary sinus pressure Right Ear: Ear canal and external ear normal. Left Ear: Ear canal and external ear normal. Nose: Rhinorrhea present. No congestion. Mouth/Throat: Mouth: Mucous membranes are moist. Pharynx: Posteri (more content not included)... [facility] 08-18-2024 History of Presen t illness Narrative This note was created using NoteWriter. Subjective Maya Blanchard is a 74 year old female. 74 year old female with PMH HTN, hyperlipidemia, DM, GERD presents for illness. Acute onset 2 weeks ago +sinus pressure +sinus pressure +cough +chest production +headache Denies dyspnea Denies abdominal pain Of note, she was diagnosed with pneumonia 05/26, treated with Z pack Was placed on Augmentin 06/06 at follow up Denies tobacco usage The history is provided by the patient. No varsity baseball coach was used. Sinus Problem This is a new problem. The current episode started 1 to 4 weeks ago. The problem occurs constantly. The problem has been unchanged. Associated symptoms include congestion, coughing and headaches. Pertinent negatives include no abdominal pain, anorexia, arthralgias, change in bowel habit, chest pain, chills, diaphoresis, fatigue, fever, joint swelling, myalgias, nausea, neck pain, numbness, rash, sore throat, swollen glands, urinary symptoms, vertigo, visual change, vomiting or weakness. Nothing aggravates the symptoms. She has tried nothing for the symptoms. The treatment provided no relief. PAST MEDICAL HISTORY Diagnosis Date Anxiety Chronic rhinitis deviated septum Diabetes mellitus type II, uncontrolled Esophageal reflux Moderate cervical dysplasia Other abnormal glucose Other and unspecified hyperlipidemia PMH - PAST MEDICAL HISTORY OF adopted PAST SURGICAL HISTORY Procedure Laterality Date CHOLECYSTECTOMY Cholecystectomy COLONOSCOPY FLX DX W/COLLJ SPEC WHEN PFRMD 11/30/98 Per repeat in EGD 11/30/98 Colonoscopy done at same time VAGINAL HYSTERECTOMY UTERUS 250 GM/< 1975 due to precancerous cells - not cancer ALLERGIES Benadryl [Diphenhydramine Hcl], Caffeine, Compazine [Prochlorperazine Edisylate], Imipramine, Tcn [Tetracyclines], and Trulicity [Dulaglutide] MEDICATIONS LORazepam (ATIVAN) 1 mg tablet Take 1 mg by mouth three times a day as needed. insulin glargine 100 unit/mL (3 mL) Inject 60 Units subcutaneously daily at bedtime. cholecalciferol, Vitamin D3, (VITAMIN D3) 1,250 mcg (50,000 unit) cap capsule Take 1 capsule by mouth one time a week. acetaminophen (TYLENOL EXTRA STRENGTH) 500 mg tablet Take 2 tablets by mouth once daily. clobetasol (TEMOVATE) 0.05 % cream Apply to affected area two times a day. Insulin Upatoi, Disposable, (BD ULTRA-FINE HEAVEN PEN NEEDLE) 32 gauge x Use one needle for each dose. 1/day. azithromycin (ZITHROMAX Z-ALVIN) 250 mg tablet Take 2 tablets day one, then, 1 tablet daily until gone. albuterol HFA (PROVENTIL HFA, VENTOLIN HFA) 90 mcg/actuation inhaler Inhale 2 Puffs as instructed every 4 hours as needed for wheezing/shortness of breath. (Patient not taking: Reported on 08/18/2024) fluconazole (DIFLUCAN) 150 mg tablet Take 1 tablet by mouth once daily. Repeat in 3 days as needed. (Patient not taking: Reported on 08/18/2024) FAMILY HISTORY Adopted: Yes Social History Tobacco Use Smoking status: Never Smokeless tobacco: Never Vaping Use Vaping status: Never Used Substance Use Topics Alcohol use: Yes Comment: Selom Drug use: No Review of Systems Constitutional: Negative for chills, diaphoresis, fatigue and fever. HENT: Positive for congestion, postnasal drip, rhinorrhea, sinus pressure and sinus pain. Negative for sore throat. Eyes: Negative for pain, discharge, redness and itching. Respiratory: Positive for cough. Negative for apnea, choking and chest tightness. Cardiovascular: Negative for chest pain. Gastrointestinal: Negative for abdominal pain, anorexia, change in bowel habit, nausea and vomiting. Musculoskeletal: Negative for arthralgias, joint swelling, myalgias and neck pain. Skin: Negative for rash. Allergic/Immunologic: Negative for environmental allergies, food allergies and immunocompromised state. Neurological: Positive for headaches. Negative for dizziness, vertigo, facial asymmetry, weakness and numbness. Hematological: Negative for adenopathy. Does not bruise/bleed easily. Psychiatric/Behavioral: Negative for agitation. Objective BP 140/90 Pulse 96 Temp 36.9 C (98.4 F) Resp 19 Wt 95.6 kg (210 lb 12.2 oz) SpO2 95% BMI 37.33 kg/m Physical Exam Vitals and nursing note reviewed. Constitutional: General: She is not in acute distress. Appearance: Normal appearance. She is normal weight. She is not ill-appearing, toxic-appearing or diaphoretic. HENT: Head: Normocephalic and atraumatic. Comments: +frontal sinus pressure +maxillary sinus pressure Right Ear: Ear canal and external ear normal. Left Ear: Ear canal and external ear normal. Nose: Rhinorrhea present. No congestion. Mouth/Throat: Mouth: Mucous membranes are moist. Pharynx: Posterior oropharyngeal erythema present. No oropharyngeal exudate. Eyes: General: Right eye: No discharge. Left eye: No discharge. Extraocular Movements: Extraocular movements intact. Conjunctiva/sclera: Conjunctivae normal. Pupils: Pupils are equal, round, and reactive to light. Cardiovascular: Rate and Rhythm: Normal rate and regular rhythm. Pulses: Normal pulses. Heart sounds: Normal heart sounds. No murmur heard. No friction rub. Pulmonary: Effort: Pulmonary effort is normal. No respiratory distress. Breath sounds: No stridor. Rhonchi present. No wheezing or rales. Chest: Chest wall: No tenderness. Abdominal: General: Abdomen is flat. There is no distension. Palpations: Abdomen is soft. There is no mass. Tenderness: There is no abdominal tenderness. There is no right CVA tenderness, left CVA tenderness, guarding or rebound. Hernia: No hernia is present. Musculoskeletal: General: No swelling, tenderness, deformity or signs of injury. Normal range of motion. Cervical back: Normal range of motion and neck supple. No rigidity. Right lower leg: No edema. Left lower leg: No edema. Lymphadenopathy: Cervical: Cervical adenopathy present. Skin: General: Skin is warm and dry. Capillary Refill: Capillary refill takes less than 2 seconds. Coloration: Skin is not jaundiced or pale. Findings: No bruising, erythema, lesion or rash. Neurological: General: No focal deficit present. Mental Status: She is alert and oriented to person, place, and time. Cranial Nerves: No cranial nerve deficit. Sensory: No sensory deficit. Motor: No weakness. Coordination: Coordination normal. Gait: Gait normal. Psychiatric: Mood and Affect: Mood normal. Behavior: Behavior normal. Thought Content: Thought content normal. Judgment: Judgment normal. Assessment and Plan ASSESSMENT/PLAN: 1. Acute cough - ICD9: 786.2, ICD10: R05.1 (primary diagnosis) Endorses cough has been present since she was diagnosed with pneumonia back in May She was treated at that time - XR CHEST 2V FRONTAL/LAT-negative 2. Rhinosinusitis - ICD9: 473.9, ICD10: J32.9 X 2 1/2 weeks +sinus TTP - Will begin treatment with Zithromax pack as directed given history of allergies - The patient should also be given OTC cough and cold meds as needed, warm salt water gargles, throat lozenges and/or OTC throat spray as needed, and nasal saline gtts and suction prn for the first 5-7 days of treatment. - Supportive care with plenty of fluids, rest, and analgesia prn. - Follow up in 3-5 days if symptoms persist or worsen. Makeda Denis APRN.CNP documented in this encounter [facility] 07-26-2024 Note HNO ID: [id number] Author: NESS MOULTON MA Service: ? Author Type: Asset Protection Detective Type: Progress Notes Filed: 07/26/2024 15:09 Note Text: POPULATION HEALTH NAVIGATION OUTREACH Action/FYI Contacted patient to schedule [employer] Annual Wellness Visit and care gaps 1st attempt: Left message with my direct number 2nd attempt: My Chart message sent Topic Due (Y or N) Comments Medicare Wellness Y 2023 and 2024 PCP Follow up N Mammogram N Colorectal Cancer Screening N A1C N Controlling BP Y Dilated Retinal Exam (ANSELMO) Y KED (UACR and eGFR) N HCC N Flu Vaccine N Reason for Outreach Care Gap/HCC or Scheduling Wellness Visits Care Gaps due: Medicare Annual Wellness Visit Controlling Blood Pressure Diabetic Eye Exam Patient Contacted: Unable or unnecessary to reach patient: Left message Jetpachart message sent Navigation Signature: Ness Moulton MA July 26, 2024 3:08 PM [facility] 07-26-2024 History of Presen t illness Narrative POPULATION HEALTH NAVIGATION OUTREACH Action/FYI Contacted patient to schedule [employer] Annual Wellness Visit and care gaps 1st attempt: Left message with my direct number 2nd attempt: My Chart message sent Topic Due (Y or N) Comments Medicare Wellness Y 2023 and 2024 PCP Follow up N Mammogram N Colorectal Cancer Screening N A1C N Controlling BP Y Dilated Retinal Exam (ANSELMO) Y KED (UACR and eGFR) N HCC N Flu Vaccine N Reason for Outreach Care Gap/HCC or Scheduling Wellness Visits Care Gaps due: Medicare Annual Wellness Visit Controlling Blood Pressure Diabetic Eye Exam Patient Contacted: Unable or unnecessary to reach patient: Left message Klocwork message sent Navigation Signature: Ness Moulton MA July 26, 2024 3:08 PM documented in this encounter [facility] 07-26-2024 Note Patient Outreach (NE TNAV) MAYA BLANCHARD ([id number]) 1950 F Date Time Provider Department 07/26/24 NESS MOULTON NETKATHIAV During your visit today, we recorded the following information about you: Ness Moulton MA 07/26/2024 3:09 PM Signed POPULATION HEALTH NAVIGATION OUTREACH Action/FYI Contacted patient to schedule [employer] Annual Wellness Visit and care gaps 1st attempt: Left message with my direct number 2nd attempt: My Chart message sent Topic Due (Y or N) Comments Medicare Wellness Y 2023 and 2024 PCP Follow up N Mammogram N Colorectal Cancer Screening N A1C N Controlling BP Y Dilated Retinal Exam (ANSELMO) Y KED (UACR and eGFR) N HCC N Flu Vaccine N Reason for Outreach Care Gap/HCC or Scheduling Wellness Visits Care Gaps due: Medicare Annual Wellness Visit Controlling Blood Pressure Diabetic Eye Exam Patient Contacted: Unable or unnecessary to reach patient: Left message Klocwork message sent Navigation Signature: Ness Moulton MA July 26, 2024 3:08 PM Allergies As of Date: 07/26/2024 Noted Allergy Reaction BENADRYL (DIPHENHYDRAMINE HCL) 07/17/2005 CAFFEINE 08/14/2005 1 - Mental Status Change COMPAZINE (PROCHLORPERAZINE EDISY*07/17/2005 IMIPRAMINE 08/14/2005 1 - Mental Status Change TCN (TETRACYCLINES) 08/14/2005 8 - GI Upset TRULICITY (DULAGLUTIDE) 10/21/2022 1 - Mental Status Change Date Reviewed: 06/30/2024 Reviewed by: Darcy Palma RPh - Fully Assessed Reason for Visit: Population Health Navigation Outreach [[id number]] Cmt: [employer]apel Prescriptions as of 07/26/2024 - insulin glargine 100 unit/mL (3 mL) Inject 60 Units subcutaneously daily at bedtime. - albuterol HFA (PROVENTIL HFA, VENTOLIN HFA) 90 mcg/actuation inhaler Inhale 2 Puffs as instructed every 4 hours as needed for wheezing/shortness of breath. - fluconazole (DIFLUCAN) 150 mg tablet Take 1 tablet by mouth once daily. Repeat in 3 days as needed. - cholecalciferol, Vitamin D3, (VITAMIN D3) 1,250 mcg (50,000 unit) cap capsule Take 1 capsule by mouth one time a week. - acetaminophen (TYLENOL EXTRA STRENGTH) 500 mg tablet Take 2 tablets by mouth once daily. - clobetasol (TEMOVATE) 0.05 % cream Apply to affected area two times a day. - Insulin Upatoi, Disposable, (BD ULTRA-FINE HEAVEN PEN NEEDLE) 32 gauge x Use one needle for each dose. 1/day. Problem List As Of Date 07/26/2024 Noted Resolved ESOPHAGEAL REFLUX [K21.9] CHRONIC RHINITIS [J31.0] 09/12/2005 DYSMETABOLIC SYNDROME X [E88.810] 09/12/2005 09/02/2007 Mixed hyperlipidemia [E78.2] Other abnormal glucose [R73.09] 08/28/2016 ABNORMAL PAP SMEAR OF CERVIX NEC AND HPV [R89.6]09/02/2007 Essential hypertension, benign [I10] 09/02/2007 06/30/2012 Nonspecific abnormal results of thyroid functio*10/05/2007 08/28/2016 Elevated BP [FPN4835] 06/30/2012 08/28/2016 Type 2 diabetes mellitus with hyperglycemia (HC*05/26/2023 Anxiety and depression [F41.9, F32.A] 08/28/2016 Essential hypertension [I10] 08/28/2016 History of stroke [Z86.73] 12/02/2021 Non-compliance [Z91.199] 12/03/2021 Type 2 diabetes mellitus with diabetic neuropat*10/21/2022 Type 2 diabetes mellitus with peripheral vascul*12/02/2021 Current use of insulin (HCC) [Z79.4] 05/26/2023 Major depressive disorder, recurrent, mild (HCC*08/28/2023 Severe obesity (BMI 35.0-39.9) with comorbidity*08/28/2023 12/03/2023 Encounter Status:Closed by NESS MOULTON on 07/26/24 [facility] 06-30-2024 History of Presen t illness Narrative Primary Care Pharmacy Visit CC (Reason for Consult): (E11.65) Uncontrolled type 2 diabetes mellitus with hyperglycemia (HCC) (primary encounter diagnosis) Goal(s): A1c <8% Last Collaborating Provider Visit: 06/10/[address] Little - insulin glargine increased up to 60 units daily Maya Blanchard is a 74 year old female presenting for follow up visit in person. Patient consents to pharmacy collaborative practice agreement. Last Pharmacy Visit: 05/05/24 Interim Events: - 05/17/24 A1c results: slight worsening from 8.3% to 8.4% HPI: Reports doing well States recently had pneumonia for about a month in May, still has some cough. Symptoms have improved recently. Reports while she was sick appetite was higher States insulin dose was increased by PCP at end of May Current DM Medications: Insulin glargine (Lantus) 60 units once daily Previously Trialed DM Meds: Trulicity - GI upset Jardiance - unable to tolerate Glimepiride Metformin IR/ER- GI intolerance GLYCEMIC CONTROL: Glucometer present at visit: BG log present Hypoglycemia: No SMBGS (Fingersticks) Date Fasting AM 06/30 177 06/29 236 06/28 177 06/27 166 06/26 151 06/25 157 06/24 207 06/23 155 06/22 170 06/21 202 06/20 198 06/19 172 06/18 137 06/17 181 06/15 104 06/13 158 06/11 124 AVG 168 Past medical history reviewed. ALLERGIES Allergen Reactions Benadryl [Diphenhyd* Caffeine Mental Status Change Compazine [Prochlor* Imipramine Mental Status Change Tcn [Tetracyclines] GI Upset Trulicity [Dulaglut* Mental Status Change Current Outpatient Medications Medication Sig Dispense Refill insulin glargine 100 unit/mL (3 mL) Inject 60 Units subcutaneously daily at bedtime. 15 mL 11 albuterol HFA (PROVENTIL HFA, VENTOLIN HFA) 90 mcg/actuation inhaler Inhale 2 Puffs as instructed every 4 hours as needed for wheezing/shortness of breath. 1 Each 0 fluconazole (DIFLUCAN) 150 mg tablet Take 1 tablet by mouth once daily. Repeat in 3 days as needed. 2 tablet 0 cholecalciferol, Vitamin D3, (VITAMIN D3) 1,250 mcg (50,000 unit) cap capsule Take 1 capsule by mouth one time a week. 12 capsule 3 acetaminophen (TYLENOL EXTRA STRENGTH) 500 mg tablet Take 2 tablets by mouth once daily. clobetasol (TEMOVATE) 0.05 % cream Apply to affected area two times a day. 15 g 2 Insulin Upatoi, Disposable, (BD ULTRA-FINE HEAVEN PEN NEEDLE) 32 gauge x 5/32 Use one needle for each dose. 1/day. 30 Each 11 No current facility-administered medications for this visit. Pill bottles are not present. Adherence: denies missed doses. Rx coverage: Payor: [employer] MEDICARE / Plan: [employer] MED[employer]ARE PPO / Product Type: PPO / Medications affordable? Yes PHARMACOTHERAPY PREVENTATIVE MEDS: On SUNSHINE/ARB: No On Statin: No On ASA: No EXAM: There were no vitals taken for this visit. Last 3 Encounter BP Readings: Date: BP: 06/10/2024 160/88[rechecked at end of visit[ 06/06/2024 142/80 05/27/2024 198/72 Wt: 92.1 kg (203 lb 0.7 oz) BMI: 35.97 kg/(m^2) LABS: Lab Results Component Value Date HBA1C 8.4 05/17/2024 HBA1C 8.3 02/16/2024 HBA1C 9.7 11/19/2023 HBA1C 12.0 03/18/2021 HBA1C 11.7 11/22/2020 HBA1C 11.2 08/14/2020 Glucose 200 05/17/2024 BUN 13 05/17/2024 Creatinine 0.58 05/17/2024 Sodium 134 05/17/2024 Potassium 4.2 05/17/2024 Chloride 99 05/17/2024 CO2 23 05/17/2024 Protein, Total 7.3 05/17/2024 Albumin 3.7 05/17/2024 Calcium 8.7 05/17/2024 Alkaline Phosphatase 85 05/17/2024 Bilirubin, Total 1.0 05/17/2024 AST 20 05/17/2024 ALT 16 05/17/2024 Lab Results Component Value Date CHOL 223 05/17/2024 CHOL 225 03/18/2021 LDL 146 05/17/2024 LDL 153 03/18/2021 HDL 46 05/17/2024 HDL 44 03/18/2021 TG 156 05/17/2024 TG 138 03/18/2021 Albumin/Creat Ratio (mg/g) Date Value 11/19/2023 98 (H) eGFR-All Other Races (.) Date Value 03/18/2021 >60 Estimated Glomerular Filtration Rate (mL/min/1.73m ) Date Value 05/17/2024 96 ASSESSMENT/PLAN: 1. Uncontrolled type 2 diabetes mellitus with hyperglycemia (HCC) - ICD9: 250.02, ICD10: E11.65 - Improving control - Continue current medications - Blood glucose monitoring on a twice daily schedule - Instructed to begin checking before dinner or at bedtime periodically - Counseled on healthy diet and regular exercise - Discussed diabetic education issues of diabetes complications and monitoring required and hypoglycemic/hyperglycemic symptoms - Follow up in 3 months, sooner should any other issues arise. - Due for A1c ~08/17/24 (already ordered) Follow Up: Next PCP visit: not scheduled Next PharmD visit: 09/22/24 Darcy Palma, PharmD, BCACP Primary Care Clinical Associate Dean Of [facility] I spent a total of 25 minutes on the date of the service which included preparing to see the patient, [id number] patient care, completing clinical documentation, and counseling and educating the patient/family/caregiver. documented in this encounter [facility] 06-30-2024 Instructions Darcy Palma RPh - 06/30/2024 9:30 AM EST Continue Lantus 60 units once daily Continue checking blood sugar every morning, and occasionally before dinner or at bedtime - bring readings to next visit documented in this encounter [facility] 06-30-2024 Note HNO ID: [id number] Author: DARCY PALMA RPh Service: ? Author Type: Pharmacist Type: Progress Notes Filed: 06/30/2024 09:54 Note Text: Primary Care Pharmacy Visit CC (Reason for Consult): (E11.65) Uncontrolled type 2 diabetes mellitus with hyperglycemia (HCC) (primary encounter diagnosis) Goal(s): A1c <8% Last Collaborating Provider Visit: 06/10/[address] Little - insulin glargine increased up to 60 units daily Maya Blanchard is a 74 year old female presenting for follow up visit in person. Patient consents to pharmacy collaborative practice agreement. Last Pharmacy Visit: 05/05/24 Interim Events: - 05/17/24 A1c results: slight worsening from 8.3% to 8.4% HPI: Reports doing well States recently had pneumonia for about a month in May, still has some cough. Symptoms have improved recently. Reports while she was sick appetite was higher States insulin dose was increased by PCP at end of May Current DM Medications: Insulin glargine (Lantus) 60 units once daily Previously Trialed DM Meds: Trulicity - GI upset Jardiance - unable to tolerate Glimepiride Metformin IR/ER- GI intolerance GLYCEMIC CONTROL: Glucometer present at visit: BG log present Hypoglycemia: No SMBGS (Fingersticks) Date Fasting AM 06/30 177 06/29 236 06/28 177 06/27 166 06/26 151 06/25 157 06/24 207 06/23 155 06/22 170 06/21 202 06/20 198 06/19 172 06/18 137 06/17 181 06/15 104 06/13 158 06/11 124 AVG 168 Past medical history reviewed. ALLERGIES Allergen Reactions Benadryl [Diphenhyd* Caffeine Mental Status Change Compazine [Prochlor* Imipramine Mental Status Change Tcn [Tetracyclines] GI Upset Trulicity [Dulaglut* Mental Status Change Current Outpatient Medications Medication Sig Dispense Refill insulin glargine 100 unit/mL (3 mL) Inject 60 Units subcutaneously daily at bedtime. 15 mL 11 albuterol HFA (PROVENTIL HFA, VENTOLIN HFA) 90 mcg/actuation inhaler Inhale 2 Puffs as instructed every 4 hours as needed for wheezing/shortness of breath. 1 Each 0 fluconazole (DIFLUCAN) 150 mg tablet Take 1 tablet by mouth once daily. Repeat in 3 days as needed. 2 tablet 0 cholecalciferol, Vitamin D3, (VITAMIN D3) 1,250 mcg (50,000 unit) cap capsule Take 1 capsule by mouth one time a week. 12 capsule 3 acetaminophen (TYLENOL EXTRA STRENGTH) 500 mg tablet Take 2 tablets by mouth once daily. clobetasol (TEMOVATE) 0.05 % cream Apply to affected area two times a day. 15 g 2 Insulin Upatoi, Disposable, (BD ULTRA-FINE HEAVEN PEN NEEDLE) 32 gauge x 32 Use one needle for each dose. 1/day. 30 Each 11 No current facility-administered medications for this visit. Pill bottles are not present. Adherence: denies missed doses. Rx coverage: Payor: [employer] MEDICARE / Plan: [employer] MEDICARE PPO / Product Type: PPO / Medications affordable? Yes PHARMACOTHERAPY PREVENTATIVE MEDS: On SUNSHINE/ARB: No On Statin: No On ASA: No EXAM: There were no vitals taken for this visit. Last 3 Encounter BP Readings: Date: BP: 06/10/2024 160/88[rechecked at end of visit[ 06/06/2024 142/80 05/27/2024 198/72 Wt: 92.1 kg (203 lb 0.7 oz) BMI: 35.97 kg/(m2) LABS: Lab Results Component Value Date HBA1C 8.4 05/17/2024 HBA1C 8.3 02/16/2024 HBA1C 9.7 11/19/2023 HBA1C 12.0 03/18/2021 HBA1C 11.7 11/22/2020 HBA1C 11.2 08/14/2020 Glucose 200 05/17/2024 BUN 13 05/17/2024 Creatinine 0.58 05/17/2024 Sodium 134 05/17/2024 Potassium 4.2 05/17/2024 Chloride 99 05/17/2024 CO2 23 05/17/2024 Protein, Total 7.3 05/17/2024 Albumin 3.7 05/17/2024 Calcium 8.7 05/17/2024 Alkaline Phosphatase 85 05/17/2024 Bilirubin, Total 1.0 05/17/2024 AST 20 05/17/2024 ALT 16 05/17/2024 Lab Results Component Value Date CHOL 223 05/17/2024 CHOL 225 03/18/2021 LDL 146 05/17/2024 LDL 153 03/18/2021 HDL 46 05/17/2024 HDL 44 03/18/2021 TG 156 05/17/2024 TG 138 03/18/2021 Albumin/Creat Ratio (mg/g) Date Value 11/19/2023 98 (H) eGFR-All Other Races (.) Date Value 03/18/2021 >60 Estimated Glomerular Filtration Rate (mL/min/1.73m?) Date Value 05/17/2024 96 ASSESSMENT/PLAN: 1. Uncontrolled type 2 diabetes mellitus with hyperglycemia (HCC) - ICD9: 250.02, ICD10: E11.65 - Improving control - Continue current medications - Blood glucose monitoring on a twice daily schedule - Instructed to begin checking before dinner or at bedtime periodically - Counseled on healthy diet and regular exercise - Discussed diabetic education issues of diabetes complications and monitoring required and hypoglycemic/hyperglycemic symptoms - Follow up in 3 months, sooner should any other issues arise. - Due for A1c ~08/17/24 (already ordered) Follow Up: Next PCP visit: not scheduled Next PharmD visit: 09/22/24 Darcy Palma, PharmD, BCACP Primary Care Clinical Associate Dean Of [facility] I spent a total of 25 minutes on the date of the service which included prepari (more content not included)... [facility] 06-10-2024 History of Presen t illness Narrative Chief Complaint Patient presents with: F/U 3 Month HPI Maya Blanchard is a 74 year old female who presents here today for 3 month follow up. No bowel, Gi, or urinary concerns. Wears pad due to urinary incontinence. JACLYN/Depression: Chronic. Is doing Counseling and taking Ativan 1 mg 2-3 x a day as needed. DM: Working with Pharmacist. Checking BS once daily with FBS 117-275. She is taking Lantus 55 units daily which was increased last visit from 50 units. She trying to watch diet, limiting sugar intake. Some neuropathy sx. Denies any hypoglycemic episodes. HTN: No taking any medications. Denies checking BP at home. No chest pains, dizziness, or SOB. Lipid: Hx of TIA. Not taking any cholesterol medications. Rides stationary bike about half hour a day. Is trying to watch diet. Pain: b/l legs; has been following with Ortho Dr. Rodas, been getting injections, doing stretches, taking Tylenol prn and at bedtime. She doesn't feel that the knee injections did anything for her pain. She started PT but hasn't been going to visits since being ill but is doing the PT exercises at home and using stationary bike. Was seen in May 27 and dx with Bacterial pneumonia. Was treated with zpak. She finished the zpak. Had cxr done at time of visit. She states her , daughter and all her kids have pneumonia. She was re-evaluated Wednesday 06/06 and was told she still had some pneumonia. Was advised to use Mucinex which she takes off and on as it dries her out too much, felt it made her cough more without any phlegm. She was told by Dr. Baldwin in that she could call in for a script of Augmentin if she felt her sx were worsening. No repeat xray done. Has not had any issues with SOB or fevers since being treated with the Zpak. She feels the coughing is better than it was when first dx but is not resolving completely, hasn't worsened. Finds if she lays on the right side she doesn't cough as much, is sleeping a little more through the night without coughing. Vaginal yeast infection due to being treated with antibiotics. She isn't sure if she has a UTI, frequency. Denies any urgency or pain with urination. She some back pain but thinks it is from all the coughing. Past medical history, appointments, medications, allergies reviewed. Previous Medical History PAST MEDICAL HISTORY Diagnosis Date Anxiety Chronic rhinitis deviated septum Diabetes mellitus type II, uncontrolled Esophageal reflux Moderate cervical dysplasia Other abnormal glucose Other and unspecified hyperlipidemia PMH - PAST MEDICAL HISTORY OF adopted Previous Surgical History PAST SURGICAL HISTORY Procedure Laterality Date CHOLECYSTECTOMY Cholecystectomy COLONOSCOPY FLX DX W/COLLJ SPEC WHEN PFRMD 11/30/98 Per repeat in EGD 11/30/98 Colonoscopy done at same time VAGINAL HYSTERECTOMY UTERUS 250 GM/< 1975 due to precancerous cells - not cancer Family History FAMILY HISTORY Adopted: Yes Patient Allergies ALLERGIES Allergen Reactions Benadryl [Diphenhyd* Caffeine Mental Status Change Compazine [Prochlor* Imipramine Mental Status Change Tcn [Tetracyclines] GI Upset Trulicity [Dulaglut* Mental Status Change Current Medications Current Outpatient Medications on File Prior to Visit Medication Sig azithromycin (ZITHROMAX) 250 mg tablet Take 2 tablets by mouth once daily for 1 day, THEN 1 tablet once daily for 4 days. cefUROXime (CEFTIN) 500 mg tablet Take 1 tablet by mouth two times a day for 5 days. benzonatate (TESSALON PERLES) 100 mg capsule Take 1-2 capsules by mouth three times a day as needed for cough. acetaminophen (TYLENOL EXTRA STRENGTH) 500 mg tablet Take 2 tablets by mouth once daily. insulin glargine 100 unit/mL (3 mL) Inject 55 Units subcutaneously daily at bedtime. LORazepam (ATIVAN) 1 mg tablet Take 1 tablet by mouth three times a day as needed for anxiety for up to 90 days. clobetasol (TEMOVATE) 0.05 % cream Apply to affected area two times a day. Insulin Upatoi, Disposable, (BD ULTRA-FINE HEAVEN PEN NEEDLE) 32 gauge x 5/32 Use one needle for each dose. 1/day. No current facility-administered medications on file prior to visit. Social History Social History Tobacco Use Smoking status: Never Smokeless tobacco: Never Vaping Use Vaping status: Never Used Substance Use Topics Alcohol use: Yes Comment: Selom Drug use: No EXAM: BP 160/88 Pulse 78 Resp 16 Wt 92.1 kg (203 lb 0.7 oz) BMI 35.97 kg/m General Appearance: Well appearing, alert, in no acute distress, well-hydrated, well nourished. and Overweight. Lungs: Lungs clear to auscultation. No wheezing, rhonchi, rales.. Heart: RRR without murmur, gallop, or rubs. No ectopy. Health Maintenance List BP Controlled (<130/80) Never done DTaP,Tdap,Td Vaccine(1 - Tdap) Never done Shingrix Vaccine(1 of 2) Never done RSV Vaccine(1 - Risk 60-74 years 1-dose series) Never done Diabetic Foot Exam due on 01/30/2024 Dilated Retinal Exam due on 03/18/2024 Influenza Vaccine(1) due on 02/13/2025 Pneumococcal Vaccine: 65+(1 of 2 - PCV) due on 03/08/2025 Covid-19 Vaccine(1 - 2023- season) due on 06/10/2025 HbA1C due on 08/17/2024 Urine Albumin:Creatinine Ratio due on 11/18/2024 Annual PCP Team Chronic Disease Visit due on 03/08/2025 Mammogram Screening due on 04/11/2025 LDL Cholesterol due on 05/17/2025 Colorectal Cancer Screening due on 01/02/2030 Bone Density Screening Completed Advance Directive Discussion Completed Hepatitis C Screening Completed Data reviewed Appointment on 06/01/2024 Component Date Value Vitamin D 25 Hydroxy 06/01/2024 17.3 (L) Appointment on 05/17/2024 Component Date Value Cholesterol, Total 05/17/2024 223 (H) Triglyceride 05/17/2024 156 (H) HDL Cholesterol 05/17/2024 46 Non HDL Cholesterol 05/17/2024 177 (H) Fasting Time 05/17/2024 12 VLDL Cholesterol 05/17/2024 31 (H) TC:HDL Ratio 05/17/2024 4.85 LDL Cholesterol 05/17/2024 146 (H) LDL:HDL Ratio 05/17/2024 3.17 (H) Protein, Total 05/17/2024 7.3 Albumin 05/17/2024 3.7 (L) Calcium, Total 05/17/2024 8.7 Bilirubin, Total 05/17/2024 1.0 Alkaline Phosphatase 05/17/2024 85 AST 05/17/2024 20 ALT 05/17/2024 16 Glucose 05/17/2024 200 (H) BUN 05/17/2024 13 Creatinine 05/17/2024 0.58 Sodium 05/17/2024 134 (L) Potassium 05/17/2024 4.2 Chloride 05/17/2024 99 CO2 05/17/2024 23 Anion Gap 05/17/2024 12 Estimated Glomerular Manohar* 05/17/2024 96 Hemoglobin A1C 05/17/2024 8.4 (H) Estimated Average Glucose 05/17/2024 194 ASSESSMENT/PLAN: 1. Uncontrolled type 2 diabetes mellitus with hyperglycemia (HCC) - ICD9: 250.02, ICD10: E11.65 (primary diagnosis) - Improving control - Continue current medications - Counseled on healthy diet and regular exercise - Discussed need for and benefit of weight loss. BMI 35.97 kg/(m^2) 2. Urinary frequency - ICD9: 788.41, ICD10: R35.0 Unable to give urine sample - UA DIP, URINE (POC) 3. Mixed hyperlipidemia - ICD9: 272.2, ICD10: E78.2 - Controlled - Continue current medications - Counseled on healthy diet and regular exercise - Discussed need for and benefit of weight loss. BMI 35.97 kg/(m^2) 4. Anxiety and depression - ICD9: 300.00, 311, ICD10: F41.9, F32.A Stable Continue current medications. 5. Essential hypertension - ICD9: 401.9, ICD10: I10 - Controlled - Continue current medications - Recommend home blood pressure monitoring, to bring results to next visit - Encouraged sodium restriction, DASH or Mediterranean diet - Recommend regular aerobic exercise - Discussed need for and benefit of weight loss. BMI 35.97 kg/(m^2) 6. Bacterial pneumonia - ICD9: 482.9, ICD10: J15.9 Albuterol inhaler sent Augmentin 875 mg 1 pill BID x 7 days 7. Vaginal yeast infection - ICD9: 112.1, ICD10: B37.31 Diflucan rx sent Follow up in 3 month with fasting labs prior. Call if cough not improving in 1-2 weeks I agree with the Chief Complaint, ROS, and Past Histories independently gathered by the clinical ict support and test engineers and the remaining scribed note accurately describes my personal service to the patient. Medical Decision Making: Problems: Moderate: 2+ stable chronic illnesses Data: Unique test result(s) reviewed: 3+ Unique test(s) ordered: 3+ Risk: Moderate: Drug management Medical Decision Making Level: 4 - Moderate Janet Little MD The documentation for this note was completed by Santa Herrera MA acting as scribe for Janet Little MD. June 10, 2024 10:19 AM. Santa Herrera MA documented in this encounter [facility] 06-10-2024 Note HNO ID: [id number] Author: JANET LITTLE MD Service: ? Author Type: Physician Type: Progress Notes Filed: 07/19/2024 15:23 Note Text: Chief Complaint Patient presents with: F/U 3 Month HPI Maya Blanchard is a 74 year old female who presents here today for 3 month follow up. No bowel, Gi, or urinary concerns. Wears pad due to urinary incontinence. JACLYN/Depression: Chronic. Is doing Counseling and taking Ativan 1 mg 2-3 x a day as needed. DM: Working with Pharmacist. Checking BS once daily with FBS 117-275. She is taking Lantus 55 units daily which was increased last visit from 50 units. She trying to watch diet, limiting sugar intake. Some neuropathy sx. Denies any hypoglycemic episodes. HTN: No taking any medications. Denies checking BP at home. No chest pains, dizziness, or SOB. Lipid: Hx of TIA. Not taking any cholesterol medications. Rides stationary bike about half hour a day. Is trying to watch diet. Pain: b/l legs; has been following with Ortho Dr. Rodas, been getting injections, doing stretches, taking Tylenol prn and at bedtime. She doesn't feel that the knee injections did anything for her pain. She started PT but hasn't been going to visits since being ill but is doing the PT exercises at home and using stationary bike. Was seen in May 27 and dx with Bacterial pneumonia. Was treated with zpak. She finished the zpak. Had cxr done at time of visit. She states her , daughter and all her kids have pneumonia. She was re-evaluated Wednesday 06/06 and was told she still had some pneumonia. Was advised to use Mucinex which she takes off and on as it dries her out too much, felt it made her cough more without any phlegm. She was told by Dr. Baldwin in that she could call in for a script of Augmentin if she felt her sx were worsening. No repeat xray done. Has not had any issues with SOB or fevers since being treated with the Zpak. She feels the coughing is better than it was when first dx but is not resolving completely, hasn't worsened. Finds if she lays on the right side shedoesn't cough as much, is sleeping a little more through the night without coughing. Vaginal yeast infection due to being treated with antibiotics. She isn't sure if she has a UTI, frequency. Denies any urgency or pain with urination. She some back pain but thinks it is from all the coughing. Past medical history, appointments, medications, allergies reviewed. Previous Medical History PAST MEDICAL HISTORY Diagnosis Date Anxiety Chronic rhinitis deviated septum Diabetes mellitus type II, uncontrolled Esophageal reflux Moderate cervical dysplasia Other abnormal glucose Other and unspecified hyperlipidemia PMH - PAST MEDICAL HISTORY OF adopted Previous Surgical History PAST SURGICAL HISTORY Procedure Laterality Date CHOLECYSTECTOMY Cholecystectomy COLONOSCOPY FLX DX W/COLLJ SPEC WHEN PFRMD 11/30/98 Per repeat in EGD 11/30/98 Colonoscopy done at same time VAGINAL HYSTERECTOMY UTERUS 250 GM/< 1975 due to precancerous cells - not cancer Family History FAMILY HISTORY Adopted: Yes Patient Allergies ALLERGIES Allergen Reactions Benadryl [Diphenhyd* Caffeine Mental Status Change Compazine [Prochlor* Imipramine Mental Status Change Tcn [Tetracyclines] GI Upset Trulicity [Dulaglut* Mental Status Change Current Medications Current Outpatient Medications on File Prior to Visit Medication Sig azithromycin (ZITHROMAX) 250 mg tablet Take 2 tablets by mouth once daily for 1 day, THEN 1 tablet once daily for 4 days. cefUROXime (CEFTIN) 500 mg tablet Take 1 tablet by mouth two times a day for 5 days. benzonatate (TESSALON PERLES) 100 mg capsule Take 1-2 capsules by mouth three times a day as needed for cough. acetaminophen (TYLENOL EXTRA STRENGTH) 500 mg tablet Take 2 tablets by mouth once daily. insulin glargine 100 unit/mL (3 mL) Inject 55 Units subcutaneously daily at bedtime. LORazepam (ATIVAN) 1 mg tablet Take 1 tablet by mouth three times a day as needed for anxiety for up to 90 days. clobetasol (TEMOVATE) 0.05 % cream Apply to affected area two times a day. Insulin Upatoi, Disposable, (BD ULTRA-FINE HEAVEN PEN NEEDLE) 32 gauge x 5/32 Use one needle for each dose. 1/day. No current facility-administered medications on file prior to visit. Social History Social History Tobacco Use Smoking status: Never Smokeless tobacco: Never Vaping Use Vaping status: Never Used Substance Use Topics Alcohol use: Yes Comment: [place] Drug use: No EXAM: BP 160/88 Pulse 78 Resp 16 Wt 92.1 kg (203 lb 0.7 oz) BMI 35.97 kg/m? General Appearance: Well appearing, alert, in no acute distress, well-hydrated, well nourished. and Overweight. Lungs: Lungs clear to auscultation. No wheezing, rhonchi, rales.. Heart: RRR without murmur, gallop, or rubs. No ectopy. Health Maintenance List BP Controlled (<130/80) (more content not included)... [facility] 06-06-2024 Note HNO ID: [id number] Author: NABIL BALDWIN MD Service: ? Author Type: Physician Type: Progress Notes Filed: 06/06/2024 09:42 Note Text: Patient presents with: Chest Congestion: cough, + pneumonia 05/26 given zpak finished 6 days ago HPI: Feeling sick for 2-3 weeks. Seen here 05/27/24 and CXR showed: Prominence of the perihilar bronchovascular markings with perihilar opacities RIGHT greater than LEFT may be secondary to bronchitis/bronchiolitis and bronchopneumonia. She returns because she still has a bad cough. She has not had a fever for 3-4 days. Her was seen again recently and had augmentin prescribed. Positive symptoms: Cough, Rhinorrhea, Headache/neck pain from cough, Negative symptoms: Shortness of breath, Wheezing, Chest pain, Fever, Nausea, Vomiting, Diarrhea, OTC: finished zpak. She did not take cefdinir out of concern for side effects. Tessalon was not helpful for the cough. MEDICATIONS: Current Outpatient Medications Medication Sig cholecalciferol, Vitamin D3, (VITAMIN D3) 1,250 mcg (50,000 unit) cap capsule Take 1 capsule by mouth one time a week. acetaminophen (TYLENOL EXTRA STRENGTH) 500 mg tablet Take 2 tablets by mouth once daily. insulin glargine 100 unit/mL (3 mL) Inject 55 Units subcutaneously daily at bedtime. LORazepam (ATIVAN) 1 mg tablet Take 1 tablet by mouth three times a day as needed for anxiety for up to 90 days. clobetasol (TEMOVATE) 0.05 % cream Apply to affected area two times a day. Insulin Upatoi, Disposable, (BD ULTRA-FINE HEAVEN PEN NEEDLE) 32 gauge x 5/32 Use one needle for each dose. 1/day. benzonatate (TESSALON PERLES) 100 mg capsule Take 1-2 capsules by mouth three times a day as needed for cough. (Patient not taking: Reported on 06/06/2024) No current facility-administered medications for this visit. ALLERGIES: ALLERGIES Allergen Reactions Benadryl [Diphenhyd* Caffeine Mental Status Change Compazine [Prochlor* Imipramine Mental Status Change Tcn [Tetracyclines] GI Upset Trulicity [Dulaglut* Mental Status Change VITALS: BP 142/80 Pulse 102 Temp 36.2 ?C (97.2 ?F) Resp 18 Wt 91.6 kg (201 lb 15.1 oz) SpO2 95% BMI 35.77 kg/m? PHYSICAL EXAM: GEN: mildly ill appearing, pleasant, alert, accompanied by her HEENT: PERRL, EOMI, conjunctiva clear Ears: canals clear. TMs without erythema, bulge, or effusion Sinuses: non-tender frontal sinus, non-tender maxillary sinuses Throat: moist mucous membranes, no erythema, no exudate Neck: supple, no thyromegaly, no lymphadenopathy HEART: regular rate and rhythm, no murmurs LUNGS: clear to auscultation, no wheezes or crackles, no increased WOB; harsh raspy and wheezy cough. ASSESSMENT/PLAN: 1. Bacterial pneumonia - ICD9: 482.9, ICD10: J15.9 Discussed expected course for pneumonia recovery may include coughing for 3 to 5 weeks. Trial - MUCINEX DM 30 MG-600 MG TABLET,EXTENDED RELEASE 12 HR Add augmentin with any signs of worsening: worsening cough, worsening shortness of breath, increasing chest pain, or return of fever. Nabil Baldwin MD [facility] 06-06-2024 History of Presen t illness Narrative Patient presents with: Chest Congestion: cough, + pneumonia 05/26 given zpak finished 6 days ago HPI: Feeling sick for 2-3 weeks. Seen here 05/27/24 and CXR showed: Prominence of the perihilar bronchovascular markings with perihilar opacities RIGHT greater than LEFT may be secondary to bronchitis/bronchiolitis and bronchopneumonia. She returns because she still has a bad cough. She has not had a fever for 3-4 days. Her was seen again recently and had augmentin prescribed. Positive symptoms: Cough, Rhinorrhea, Headache/neck pain from cough, Negative symptoms: Shortness of breath, Wheezing, Chest pain, Fever, Nausea, Vomiting, Diarrhea, OTC: finished zpak. She did not take cefdinir out of concern for side effects. Tessalon was not helpful for the cough. MEDICATIONS: Current Outpatient Medications Medication Sig cholecalciferol, Vitamin D3, (VITAMIN D3) 1,250 mcg (50,000 unit) cap capsule Take 1 capsule by mouth one time a week. acetaminophen (TYLENOL EXTRA STRENGTH) 500 mg tablet Take 2 tablets by mouth once daily. insulin glargine 100 unit/mL (3 mL) Inject 55 Units subcutaneously daily at bedtime. LORazepam (ATIVAN) 1 mg tablet Take 1 tablet by mouth three times a day as needed for anxiety for up to 90 days. clobetasol (TEMOVATE) 0.05 % cream Apply to affected area two times a day. Insulin Upatoi, Disposable, (BD ULTRA-FINE HEAVEN PEN NEEDLE) 32 gauge x 5/32 Use one needle for each dose. 1/day. benzonatate (TESSALON PERLES) 100 mg capsule Take 1-2 capsules by mouth three times a day as needed for cough. (Patient not taking: Reported on 06/06/2024) No current facility-administered medications for this visit. ALLERGIES: ALLERGIES Allergen Reactions Benadryl [Diphenhyd* Caffeine Mental Status Change Compazine [Prochlor* Imipramine Mental Status Change Tcn [Tetracyclines] GI Upset Trulicity [Dulaglut* Mental Status Change VITALS: BP 142/80 Pulse 102 Temp 36.2 C (97.2 F) Resp 18 Wt 91.6 kg (201 lb 15.1 oz) SpO2 95% BMI 35.77 kg/m PHYSICAL EXAM: GEN: mildly ill appearing, pleasant, alert, accompanied by her HEENT: PERRL, EOMI, conjunctiva clear Ears: canals clear. TMs without erythema, bulge, or effusion Sinuses: non-tender frontal sinus, non-tender maxillary sinuses Throat: moist mucous membranes, no erythema, no exudate Neck: supple, no thyromegaly, no lymphadenopathy HEART: regular rate and rhythm, no murmurs LUNGS: clear to auscultation, no wheezes or crackles, no increased WOB; harsh raspy and wheezy cough. ASSESSMENT/PLAN: 1. Bacterial pneumonia - ICD9: 482.9, ICD10: J15.9 Discussed expected course for pneumonia recovery may include coughing for 3 to 5 weeks. Trial - MUCINEX DM 30 MG-600 MG TABLET,EXTENDED RELEASE 12 HR Add augmentin with any signs of worsening: worsening cough, worsening shortness of breath, increasing chest pain, or return of fever. Nabil Baldwin MD documented in this encounter [facility] 06-03-2024 Telephone encounter Note The following approved medication requests have been transmitted electronically. Requested Prescriptions Signed Prescriptions Disp Refills cholecalciferol, Vitamin D3, (VITAMIN D3) 1,250 mcg (50,000 unit) cap capsule 12 capsule 3 Sig: Take 1 capsule by mouth one time a week. Authorizing Provider: BRANDI CHILDERS APRN.NICK Get repeat lab in [address] [facility] 06-03-2024 Miscellaneous Notes The following approved medication requests have been transmitted electronically. Requested Prescriptions Signed Prescriptions Disp Refills cholecalciferol, Vitamin D3, (VITAMIN D3) 1,250 mcg (50,000 unit) cap capsule 12 capsule 3 Sig: Take 1 capsule by mouth one time a week. Authorizing Provider: BRANDI CHILDERS APRN.CNP Get repeat lab in 3 months Patient notified of results, verbalizes understanding of instructions. Pt agreed to take the Vit D. Please send to Serge Machuca LPN Can you please call the patient and let her know that I reviewed her vitamin D results. Vitamin D was very low. I would recommend starting a once weekly supplement and rechecking labs in 3 months. If she is agreeable please verify pharmacy. Please let me know if she has any questions. Thank you. Brandi Childers APRN.NICK documented in this encounter [facility] 06-03-2024 Telephone encounter Note Patient notified of results, verbalizes understanding of instructions. Pt agreed to take the Vit D. Please send to Serge Machuca LPN [facility] 06-03-2024 Telephone encounter Note Can you please call the patient and let her know that I reviewed her vitamin D results. Vitamin D was very low. I would recommend starting a once weekly supplement and rechecking labs in 3 months. If she is agreeable please verify pharmacy. Please let me know if she has any questions. Thank you. Brandi Childers APRN.NICK [facility] 05-27-2024 Telephone encounter Note TC to patient who is informed lab order has been placed. No further questions at this time. PATRICIA King [facility] 05-27-2024 Miscellaneous Notes TC to patient who is informed lab order has been placed. No further questions at this time. PATRICIA King Vitamin D lab order has been placed. Brandi Childers APRN.CNP Patient phoned to ask pcp to place lab order for Vit D. States she just wants to see if it's low. States she is not having symptoms, just wants to know the result. Pended. documented in this encounter [facility] 05-27-2024 Telephone encounter Note Vitamin D lab order has been placed. Brandi Childers APRN.CNP [facility] 05-27-2024 Telephone encounter Note Patient phoned to ask pcp to place lab order for Vit D. States she just wants to see if it's low. States she is not having symptoms, just wants to know the result. Pended. [facility] 05-27-2024 Instructions Jalyn Walker APRN.CNP - 05/27/2024 10:18 AM EDT - Ceftin twice daily for 5 days - Azithromycin once daily for 5 days - Tessalon perles 1-2 capsules 3 times per day - If no improvement in the next 1 week follow up with primary care - Follow up 3 weeks for repeat chest x-ray - If you develop shortness of breath, difficulty breathing, or chest pain go to the ER PNEUMONIA PATIENT INSTRUCTIONS: What is pneumonia? Pneumonia is an infection in one or both of your lungs that can be caused by several kinds of germs, such as: Bacteria viruses fungi (molds) (uncommon) Pneumonia causes swelling (inflammation) of the airways and causes air sacs in the lungs to fill with mucus and other fluids, making it difficult for oxygen to reach the blood. People who are otherwise healthy often recover quickly when given prompt and proper care. However, pneumonia is a serious condition. You are at higher risk if you: smoke are over age 65 have a chronic illness, especially one that affects the heart, lungs, or kidneys (such as COPD, diabetes) have a weakened immune system for any reason (such as from medication, cancer, or a transplant) have trouble swallowing have had a recent surgery or procedure have pneumonia that doesn't get treated If you are not sure whether any of these apply to you, ask your health care provider. How Your Lungs Work Your lungs' main job is to get oxygen into your blood and remove carbon dioxide. This happens during breathing. We breathe 12 to 20 times per minute when we are not sick. When you breathe in, air travels down the back of your throat and passes through your voice box and into your windpipe (trachea). Your trachea splits into two air passages (bronchial tubes). One bronchial tube leads to the left lung, the other to the right lung. For the lungs to perform their best, the airways need to be open as you breathe in and out. Swelling (inflammation) and mucus can make it harder to move air through the airways, making it harder to breathe. This leads to shortness of breath, difficulty breathing, and feeling more tired than normal. Bacterial Pneumonia Viral Pneumonia What is it? Bacterial pneumonia is caused by bacteria germs. The streptococcus pneumoniae germ is the most common cause of bacterial pneumonia. Viral pneumonia is caused by virus germs. About half of all people with pneumonia have viral pneumonia. Viral pneumonia is usually less serious than bacterial pneumonia. What are the signs and symptoms? Symptoms of bacterial pneumonia can develop gradually or suddenly. Symptoms include: High fever (up to 105 degrees) Tiredness (less energy) Rapid breathing Chills Cough with mucus (might be greenish or have blood) Chest pain, especially with coughing or deep breathing Shortness of breath Loss of appetite Symptoms usually develop over a period of several days. Early symptoms are similar to flu symptoms, which include: Fever Dry cough Headache Sore throat Loss of appetite Muscle pain Additional symptoms about a day later: High fever Cough with mucus Shortness of breath What is the treatment? Bacterial pneumonia is usually treated with antibiotics. In some cases, the person may stay in the hospital for treatment. Hospital treatments may include: Oxygen Fluids and medicines given through an IV Breathing treatments and exercises to help loosen mucus Medicines for pain and fever may also be helpful. With treatment, bacterial pneumonia usually improves within 24 to 48 hours. Antibiotics are not used to fight viruses, but may be given to fight a bacterial infection that is also present. Hospital stays for viral pneumonia are less common than for bacterial pneumonia. Medicines for pain and fever may also be helpful. Other medicines and therapies such as breathing treatments and exercises to loosen mucus may be prescribed by your doctor. Symptoms usually begin to improve within a few days. The most important thing is to finish all medications and therapies as they are prescribed. This will help to get rid of the infection completely and prevent it from coming back. Bacterial Pneumonia Viral Pneumonia How can I prevent? A pneumonia vaccine (shot) is available for protection against the most common cause of bacterial pneumonia (the streptococcus pneumoniae germ). Ask your healthcare provider about this vaccine. Getting a flu vaccine (shot) once every year can also help prevent bacterial pneumonia. Get a flu vaccine (shot) once every year. Flu vaccines are prepared to protect against that year's virus strain. Having the flu can make it easier to get bacterial pneumonia. Don't smoke, and avoid secondhand smoke. Wash your hands before eating, before handling food, when using the restroom, and after being outside. Avoid being around people who are sick. Ask them to visit when they are feeling better. Eat a healthy diet, exercise, and get enough rest. Tell your doctor if you have trouble swallowing. Get treated for any other infections or conditions that you have. Don't use alcohol heavily. Contact your health care provider if you think you have symptoms. Don't wait for symptoms to worsen, as you could develop an emergency condition. What should I do to get better? Finish ALL medications and therapies as they are prescribed. Drink warm fluids to relieve coughing. Rest. Don't jain your recovery. It can take weeks to get your full strength back. You are the only one who knows whether you are feeling better. If at any time you feel worse, contact your health care provider right away. References National Heart, Lung, and Blood [place]. What is Pneumonia? www.nhlbi.nih.gov Centers for Disease Control and Prevention. Pneumonia Can Be Prevented--Vaccines Can Help. www.cdc.gov. [place] [employer]. Pneumonia familydoctor.org Copyright 4350-2782 [facility]. All rights reserved This information is provided by the [facility] and is not intended to replace the medical advice of your doctor or health care provider. Please consult your health care provider for advice about a specific medical condition. For additional health information, please contact the Center for Consumer Health Information at the [facility] or toll-free extension [phone]. If you prefer, you may visit [email or web address] or [email or web address] documented in this encounter [facility] 05-27-2024 History of Presen t illness Narrative Radiology Service Progress Note PATIENT NAME: Maya Blanchard DATE OF SERVICE: May 27, 2024 TIME: 9:46 AM PATIENT IDENTITY VERIFICATION COMPLETED USING TWO (2) IDENTIFIERS: Name and Date of confirmed by patient verbally. FALL SCREENING: Has the patient had 2 falls in the last year or 1 fall with injury or currently using an Ambulatory Assistive Device (Walker, Cane, Wheelchair, Crutches, etc.)? No PATIENT GENDER DATA: Female. status: : No status: NO. PATIENT RELEVANT IMPLANT DATA REVIEWED: Yes PATIENT PRESENTS WITH AN IMPLANTABLE OR ATTACHED SENIOR PREMIUM AUDITOR: No RADIOLOGY DEPARTMENT: General X-ray: Exam(s) Completed: Chest X-Ray PERIPHERAL IV DATA: Not applicable SIGNED BY: BESS Smallwood) May 27, 2024 9:46 AM documented in this encounter [facility] 05-27-2024 Note HNO ID: [id number] Author: AVINASH GUPTA RT(R) Service: Radiology Author Type: Technologist Type: Progress Notes Filed: 05/27/2024 09:53 Note Text: Radiology Service Progress Note PATIENT NAME: Maya Blanchard DATE OF SERVICE: May 27, 2024 TIME: 9:46 AM PATIENT IDENTITY VERIFICATION COMPLETED USING TWO (2) IDENTIFIERS: Name and Date of confirmed by patient verbally. FALL SCREENING: Has the patient had 2 falls in the last year or 1 fall with injury or currently using an Ambulatory Assistive Device (Walker, Cane, Wheelchair, Crutches, etc.)? No PATIENT GENDER DATA: Female. status: : No status: NO. PATIENT RELEVANT IMPLANT DATA REVIEWED: Yes PATIENT PRESENTS WITH AN IMPLANTABLE OR ATTACHED SENIOR PREMIUM AUDITOR: No RADIOLOGY DEPARTMENT: General X-ray: Exam(s) Completed: Chest X-Ray PERIPHERAL IV DATA: Not applicable SIGNED BY: RT Cl(R) May 27, 2024 9:46 AM [facility] 05-27-2024 Note HNO ID: [id number] Author: JALYN WALKER APRN.TELEPHONE REPAIRER Service: ? Author Type: Nurse Practitioner Type: Progress Notes Filed: 05/27/2024 10:23 Note Text: Patient presents with: Cough: Chest congestion x1.5 weeks, low fever x4 days Feels symptoms are getting worse This morning her temperature was 100 She has tried tylenol, cough drops, vaporizer, and Vicks vapor rub Cough Pertinent negatives include no chills, no ear pain, no rhinorrhea, no sore throat and no myalgias. Review of Systems Constitutional: Positive for diaphoresis and fever (100 T max). Negative for chills. HENT: Positive for congestion and postnasal drip. Negative for ear pain, rhinorrhea and sore throat. Respiratory: Positive for cough (productive at times). Musculoskeletal: Negative for myalgias. Physical Exam Vitals reviewed. Constitutional: Appearance: Normal appearance. HENT: Head: Normocephalic. Right Ear: Tympanic membrane, ear canal and external ear normal. Left Ear: Ear canal and external ear normal. A middle ear effusion is present. Nose: Congestion present. Mouth/Throat: Mouth: Mucous membranes are moist. Pharynx: No posterior oropharyngeal erythema. Eyes: Extraocular Movements: Extraocular movements intact. Cardiovascular: Rate and Rhythm: Normal rate and regular rhythm. Heart sounds: Normal heart sounds. Pulmonary: Effort: Pulmonary effort is normal. No respiratory distress. Breath sounds: Normal breath sounds. No wheezing, rhonchi or rales. Comments: Harsh cough Neurological: Mental Status: She is alert. ASSESSMENT/PLAN: 1. Acute cough - ICD9: 786.2, ICD10: R05.1 (primary diagnosis) - XR CHEST 2V FRONTAL/LAT - CXR per radiologist review showed opacities right greater than left may be secondary to bronchitis/bronchiolitis and bronchopnemonia 2. Bacterial pneumonia - ICD9: 482.9, ICD10: J15.9 - She has a history of diabetes - Treat with ceftin and azithromycin - Reviewed follow up instructions as well as symptoms to present to ER - She verbalized understanding and agreement with this plan. Jalyn Walker APRN.[facility] 05-27-2024 History of Presen t illness Narrative Patient presents with: Cough: Chest congestion x1.5 weeks, low fever x4 days Feels symptoms are getting worse This morning her temperature was 100 She has tried tylenol, cough drops, vaporizer, and Vicks vapor rub Cough Pertinent negatives include no chills, no ear pain, no rhinorrhea, no sore throat and no myalgias. Review of Systems Constitutional: Positive for diaphoresis and fever (100 T max). Negative for chills. HENT: Positive for congestion and postnasal drip. Negative for ear pain, rhinorrhea and sore throat. Respiratory: Positive for cough (productive at times). Musculoskeletal: Negative for myalgias. Physical Exam Vitals reviewed. Constitutional: Appearance: Normal appearance. HENT: Head: Normocephalic. Right Ear: Tympanic membrane, ear canal and external ear normal. Left Ear: Ear canal and external ear normal. A middle ear effusion is present. Nose: Congestion present. Mouth/Throat: Mouth: Mucous membranes are moist. Pharynx: No posterior oropharyngeal erythema. Eyes: Extraocular Movements: Extraocular movements intact. Cardiovascular: Rate and Rhythm: Normal rate and regular rhythm. Heart sounds: Normal heart sounds. Pulmonary: Effort: Pulmonary effort is normal. No respiratory distress. Breath sounds: Normal breath sounds. No wheezing, rhonchi or rales. Comments: Harsh cough Neurological: Mental Status: She is alert. ASSESSMENT/PLAN: 1. Acute cough - ICD9: 786.2, ICD10: R05.1 (primary diagnosis) - XR CHEST 2V FRONTAL/LAT - CXR per radiologist review showed opacities right greater than left may be secondary to bronchitis/bronchiolitis and bronchopnemonia 2. Bacterial pneumonia - ICD9: 482.9, ICD10: J15.9 - She has a history of diabetes - Treat with ceftin and azithromycin - Reviewed follow up instructions as well as symptoms to present to ER - She verbalized understanding and agreement with this plan. Jalyn Walker APRN.TELEPHONE REPAIRER documented in this encounter [facility] 05-26-2024 Telephone encounter Note Patient reports a constant dry cough for the last week and a half. Fever 99.9. Keeps her awake at night. Protocol recommends see provider in 24 hours. Patient agreeable and will go to [facility] for evaluation. Reason for Disposition [1] Continuous (nonstop) coughing interferes with work or school AND [2] no improvement using cough treatment per Care Advice Answer Assessment - Initial Assessment Questions 1. ONSET: 1 1/2 weeks ago. 2. SEVERITY: Constant. Keeps her awake at night. Mucinex does not help. 3. SPUTUM: Dry cough. Sometimes clear mucous. 4. HEMOPTYSIS: No 5. DIFFICULTY BREATHING: No SOB 6. FEVER: Does have a fever of 99.9 7. CARDIAC HISTORY: No 8. LUNG HISTORY: No 9. PE RISK FACTORS: Never had blood clot. No prolonged travel. No major surgery. 10. OTHER SYMPTOMS: No other symptoms. Sinus drainage. 11. : No 12. TRAVEL: No exposures. No travel. Protocols used: Cough - Acute Lro-Tyitmegdyh-BYDXD- [facility] 05-26-2024 Miscellaneous Notes Patient reports a constant dry cough for the last week and a half. Fever 99.9. Keeps her awake at night. Protocol recommends see provider in 24 hours. Patient agreeable and will go to [facility] for evaluation. Reason for Disposition [1] Continuous (nonstop) coughing interferes with work or school AND [2] no improvement using cough treatment per Care Advice Answer Assessment - Initial Assessment Questions 1. ONSET: 1 1/2 weeks ago. 2. SEVERITY: Constant. Keeps her awake at night. Mucinex does not help. 3. SPUTUM: Dry cough. Sometimes clear mucous. 4. HEMOPTYSIS: No 5. DIFFICULTY BREATHING: No SOB 6. FEVER: Does have a fever of 99.9 7. CARDIAC HISTORY: No 8. LUNG HISTORY: No 9. PE RISK FACTORS: Never had blood clot. No prolonged travel. No major surgery. 10. OTHER SYMPTOMS: No other symptoms. Sinus drainage. 11. : No 12. TRAVEL: No exposures. No travel. Protocols used: Cough - Acute Xer-Halgjzclxq-MZVAN-AH documented in this encounter [facility] 05-05-2024 History of Presen t illness Narrative Primary Care Pharmacy Visit CC (Reason for Consult): (E11.65) Uncontrolled type 2 diabetes mellitus with hyperglycemia (HCC) (primary encounter diagnosis) Goal(s): A1c <8% Last Collaborating Provider Visit: 03/08/[address] Little Maya Blanchard is a 73 year old female presenting for follow up visit in person. Patient consents to pharmacy collaborative practice agreement. Last Pharmacy Visit: 02/04/24 - insulin glargine increased to 50 units Interim Events: - 02/16/24 A1c results - improvement from 9.7% to 8.3% - 03/08/24 PCP visit - insulin glargine increased to 55 units daily HPI: Reports doing well Confirmed Lantus was increased at last visit with Dr. Little Has had a lot of stress recently with family stress States her copay for insulin is only $35/month Current DM Medications: Insulin glargine (Lantus) 55 units once daily Previously Trialed DM Meds: Trulicity - GI upset Jardiance - unable to tolerate Glimepiride Metformin IR/ER- GI intolerance Diet Denies any recent changes GLYCEMIC CONTROL: Glucometer present at visit: BG log present Hypoglycemia: No SMBGS (Fingersticks) Date Fasting AM 05/05 164 9/17 133 9/16 192 9/15 113 9/14 136 9/13 171 9/12 110 9/11 125 9/10 133 9/7 159 9/6 143 9/4 137 9/3 180 AVG 146 Had a couple readings in the 200s, but likely due to excess stress Past medical history reviewed. ALLERGIES Allergen Reactions Benadryl [Diphenhyd* Caffeine Mental Status Change Compazine [Prochlor* Imipramine Mental Status Change Tcn [Tetracyclines] GI Upset Trulicity [Dulaglut* Mental Status Change Current Outpatient Medications Medication Sig Dispense Refill acetaminophen (TYLENOL EXTRA STRENGTH) 500 mg tablet Take 2 tablets by mouth once daily. insulin glargine 100 unit/mL (3 mL) Inject 55 Units subcutaneously daily at bedtime. 15 mL 11 LORazepam (ATIVAN) 1 mg tablet Take 1 tablet by mouth three times a day as needed for anxiety for up to 90 days. 90 tablet 2 clobetasol (TEMOVATE) 0.05 % cream Apply to affected area two times a day. 15 g 2 Insulin Upatoi, Disposable, (BD ULTRA-FINE HEAVEN PEN NEEDLE) 32 gauge x /32 Use one needle for each dose. 1/day. 30 Each 11 No current facility-administered medications for this visit. Pill bottles are not present. Adherence: denies missed doses. Rx coverage: Payor: HUMANA MEDICARE / Plan: HU[employer]NA MEDICARE PPO / Product Type: PPO / Medications affordable? Yes PHARMACOTHERAPY PREVENTATIVE MEDS: On SUNSHINE/ARB: No On Statin: No On ASA: No EXAM: There were no vitals taken for this visit. Last 3 Encounter BP Readings: Date: BP: 03/08/2024 168/78[rechecked at end of visit[ 12/03/2023 168/72 08/28/2023 170/88 Wt: 92 kg (202 lb 14.4 oz) BMI: 35.94 kg/(m^2) LABS: Lab Results Component Value Date HBA1C 8.3 02/16/2024 HBA1C 9.7 11/19/2023 HBA1C 12.0 08/18/2023 HBA1C 12.0 03/18/2021 HBA1C 11.7 11/22/2020 HBA1C 11.2 08/14/2020 Glucose 157 02/16/2024 BUN 18 02/16/2024 Creatinine 0.65 02/16/2024 Sodium 137 02/16/2024 Potassium 4.5 02/16/2024 Chloride 102 02/16/2024 CO2 25 02/16/2024 Protein, Total 7.3 02/16/2024 Albumin 3.9 02/16/2024 Calcium 9.1 02/16/2024 Alkaline Phosphatase 73 02/16/2024 Bilirubin, Total 0.6 02/16/2024 AST 20 02/16/2024 ALT 16 02/16/2024 Lab Results Component Value Date CHOL 218 02/16/2024 CHOL 225 03/18/2021 LDL 144 02/16/2024 LDL 153 03/18/2021 HDL 48 02/16/2024 HDL 44 03/18/2021 TG 129 02/16/2024 TG 138 03/18/2021 Albumin/Creat Ratio (mg/g) Date Value 11/19/2023 98 (H) eGFR-All Other Races (.) Date Value 03/18/2021 >60 Estimated Glomerular Filtration Rate (mL/min/1.73m ) Date Value 02/16/2024 94 ASSESSMENT/PLAN: 1. Uncontrolled type 2 diabetes mellitus with hyperglycemia (HCC) - ICD9: 250.02, ICD10: E11.65 - Improving control - Continue current medications - Blood glucose monitoring on a once daily schedule - Counseled on healthy diet and regular exercise - Follow up in 2 months, sooner should any other issues arise. - Due for A1c ~05/18/24 (already ordered) Follow Up: Next PCP visit: 06/10/24 Next PharmD visit: 06/30/24 Darcy Palma, PharmD, BCACP Primary Care Clinical Associate [facility] Of [facility] I spent a total of 20 minutes on the date of the service which included preparing to see the patient, [id number] patient care, completing clinical documentation, and counseling and educating the patient/family/caregiver. documented in this encounter [facility] 05-05-2024 Instructions Darcy Palma RPh - 05/05/2024 9:00 AM EDT Continue Lantus 55 units once daily documented in this encounter [facility] 05-05-2024 Note HNO ID: [id number] Author: DARCY PALMA RPh Service: ? Author Type: Pharmacist Type: Progress Notes Filed: 05/05/2024 09:21 Note Text: Primary Care Pharmacy Visit CC (Reason for Consult): (E11.65) Uncontrolled type 2 diabetes mellitus with hyperglycemia (HCC) (primary encounter diagnosis) Goal(s): A1c <8% Last Collaborating Provider Visit: 03/08/[address] Little Maya Blanchard is a 73 year old female presenting for follow up visit in person. Patient consents to pharmacy collaborative practice agreement. Last Pharmacy Visit: 02/04/24 - insulin glargine increased to 50 units Interim Events: - 02/16/24 A1c results - improvement from 9.7% to 8.3% - 03/08/24 PCP visit - insulin glargine increased to 55 units daily HPI: Reports doing well Confirmed Lantus was increased at last visit with Dr. Little Has had a lot of stress recently with family stress States her copay for insulin is only $35/month Current DM Medications: Insulin glargine (Lantus) 55 units once daily Previously Trialed DM Meds: Trulicity - GI upset Jardiance - unable to tolerate Glimepiride Metformin IR/ER- GI intolerance Diet Denies any recent changes GLYCEMIC CONTROL: Glucometer present at visit: BG log present Hypoglycemia: No SMBGS (Fingersticks) Date Fasting AM 05/05 164 9/17 133 9/16 192 9/15 113 9/14 136 9/13 171 9/12 110 9/11 125 9/10 133 9/7 159 9/6 143 9/4 137 9/3 180 AVG 146 Had a couple readings in the 200s, but likely due to excess stress Past medical history reviewed. ALLERGIES Allergen Reactions Benadryl [Diphenhyd* Caffeine Mental Status Change Compazine [Prochlor* Imipramine Mental Status Change Tcn [Tetracyclines] GI Upset Trulicity [Dulaglut* Mental Status Change Current Outpatient Medications Medication Sig Dispense Refill acetaminophen (TYLENOL EXTRA STRENGTH) 500 mg tablet Take 2 tablets by mouth once daily. insulin glargine 100 unit/mL (3 mL) Inject 55 Units subcutaneously daily at bedtime. 15 mL 11 LORazepam (ATIVAN) 1 mg tablet Take 1 tablet by mouth three times a day as needed for anxiety for up to 90 days. 90 tablet 2 clobetasol (TEMOVATE) 0.05 % cream Apply to affected area two times a day. 15 g 2 Insulin Upatoi, Disposable, (BD ULTRA-FINE HEAVEN PEN NEEDLE) 32 gauge x /32 Use one needle for each dose. 1/day. 30 Each 11 No current facility-administered medications for this visit. Pill bottles are not present. Adherence: denies missed doses. Rx coverage: Payor: HUMANA MEDICARE / Plan: HU[employer]NA MEDICARE PPO / Product Type: PPO / Medications affordable? Yes PHARMACOTHERAPY PREVENTATIVE MEDS: On SUNSHINE/ARB: No On Statin: No On ASA: No EXAM: There were no vitals taken for this visit. Last 3 Encounter BP Readings: Date: BP: 03/08/2024 168/78[rechecked at end of visit[ 12/03/2023 168/72 08/28/2023 170/88 Wt: 92 kg (202 lb 14.4 oz) BMI: 35.94 kg/(m2) LABS: Lab Results Component Value Date HBA1C 8.3 02/16/2024 HBA1C 9.7 11/19/2023 HBA1C 12.0 08/18/2023 HBA1C 12.0 03/18/2021 HBA1C 11.7 11/22/2020 HBA1C 11.2 08/14/2020 Glucose 157 02/16/2024 BUN 18 02/16/2024 Creatinine 0.65 02/16/2024 Sodium 137 02/16/2024 Potassium 4.5 02/16/2024 Chloride 102 02/16/2024 CO2 25 02/16/2024 Protein, Total 7.3 02/16/2024 Albumin 3.9 02/16/2024 Calcium 9.1 02/16/2024 Alkaline Phosphatase 73 02/16/2024 Bilirubin, Total 0.6 02/16/2024 AST 20 02/16/2024 ALT 16 02/16/2024 Lab Results Component Value Date CHOL 218 02/16/2024 CHOL 225 03/18/2021 LDL 144 02/16/2024 LDL 153 03/18/2021 HDL 48 02/16/2024 HDL 44 03/18/2021 TG 129 02/16/2024 TG 138 03/18/2021 Albumin/Creat Ratio (mg/g) Date Value 11/19/2023 98 (H) eGFR-All Other Races (.) Date Value 03/18/2021 >60 Estimated Glomerular Filtration Rate (mL/min/1.73m?) Date Value 02/16/2024 94 ASSESSMENT/PLAN: 1. Uncontrolled type 2 diabetes mellitus with hyperglycemia (HCC) - ICD9: 250.02, ICD10: E11.65 - Improving control - Continue current medications - Blood glucose monitoring on a once daily schedule - Counseled on healthy diet and regular exercise - Follow up in 2 months, sooner should any other issues arise. - Due for A1c ~05/18/24 (already ordered) Follow Up: Next PCP visit: 06/10/24 Next PharmD visit: 06/30/24 Darcy Palma, Carlos, BCACP Primary Care Clinical Associate [facility] Of [facility] I spent a total of 20 minutes on the date of the service which included preparing to see the patient, [id number] patient care, completing clinical documentation, and counseling and educating the patient/family/caregiver. [facility] 04-12-2024 Telephone encounter Note Mychart message sent. [facility] 04-12-2024 Miscellaneous Notes Mychart message sent. Mammogram is normal; repeat in one year Janet Little MD Pt had outside imaging done from [facility] for Mammogram. Please review. Krysta Oliva MA documented in this encounter [facility] 04-12-2024 Telephone encounter Note Mammogram is normal; repeat in one year Janet Little MD [facility] 04-11-2024 Telephone encounter Note Pt had outside imaging done from [facility] for Mammogram. Please review. Krysta Oliva MA [facility] 04-04-2024 Telephone encounter Note Patient calling she had her first PT session at [facility] and was told to call her PCP to notify him, she has been having incontinence of her bladder and her bowels for few years. PT person told her may be caused from her back. Patient said she wears depends all the time. She has never mentioned this issue to her PCP at all before. Patient said she is able to void at times but has urgency and also with her bowels. [facility] 04-04-2024 Miscellaneous Notes Patient calling she had her first PT session at [facility] and was told to call her PCP to notify him, she has been having incontinence of her bladder and her bowels for few years. PT person told her may be caused from her back. Patient said she wears depends all the time. She has never mentioned this issue to her PCP at all before. Patient said she is able to void at times but has urgency and also with her bowels. documented in this encounter [facility] 03-08-2024 Telephone encounter Note OK to refill as ordered Janet Little MD [facility] 03-08-2024 Miscellaneous Notes OK to refill as ordered Janet Little MD Prescription Refill Information The patient has been identified by name and date of : Yes Caregiver verified no other encounters exist for this prescription request: Yes Caregiver confirmed with patient/requestor that no other refills are due, in the near future, with this provider at this time: Yes The last office visit in the department: 03/07/2024 Does the patient have a future office visit with this provider/department: Yes Requested Prescriptions Pending Prescriptions Disp Refills LORazepam (ATIVAN) 1 mg tablet [Pharmacy Med Name: LORAZEPAM 1 MG TABLET] 90 tablet Sig: Take 1 tablet by mouth three times a day as needed for up to 30 days. Delmis Jackson LPN March 08, 2024 1:35 PM documented in this encounter [facility] 03-08-2024 Telephone encounter Note Prescription Refill Information The patient has been identified by name and date of : Yes Caregiver verified no other encounters exist for this prescription request: Yes Caregiver confirmed with patient/requestor that no other refills are due, in the near future, with this provider at this time: Yes The last office visit in the department: 03/07/2024 Does the patient have a future office visit with this provider/department: Yes Requested Prescriptions Pending Prescriptions Disp Refills LORazepam (ATIVAN) 1 mg tablet [Pharmacy Med Name: LORAZEPAM 1 MG TABLET] 90 tablet Sig: Take 1 tablet by mouth three times a day as needed for up to 30 days. Delmis Jackson LPN March 08, 2024 1:[address] [facility] 03-08-2024 History of Presen t illness Narrative Chief Complaint Patient presents with: F/U 3 Month HPI Maya Blanchard is a 73 year old female who presents here today for 3 month follow up. Here with her . Hx of TIA. Has an advanced directive. No bowel, Gi, or urinary concerns. Has some urinary incontinence, wears pad. DM: Has been working with pharmacist to control diabetes. She is taking Lantus 50 units daily. She trying to watch diet, limiting sugar intake. Checking BS once day with FBS 125-210 this morning. Denies any hypoglycemic episodes. Some neuropathy sx, no change, not any worse, seems to be intermittent, worse in left than right foot. Starting in hands. Follows with Dr. Teresa at the [facility]. She states they went to a care taking course for Type 1 diabetics because their 3 year old grand daughter has been diagnosed with this and have learned a lot. JACLYN/Depression: Chronic. Is doing Counseling and taking Ativan 1 mg 2-3 x a day as needed. Stressors have increased since last visit. Their 3 year old grand daughter was dx with Type 1 diabetes and their daughter Rowena is in the process of getting . HTN: Denies checking her BP at home, no chest pains, dizziness, or SOB. Not taking any medications as she states in past she has not tolerated them. Lipids: Currently on no medication, uncontrolled. Rides stationary bike 12-30 minutes a day. Trying to watch diet. Was sent to PT for bilateral leg pain that she is now going to be doing at [facility] which was ordered by Ortho Dr. Rodas. Pt states she has been getting gel injections to both knees has had 2 injections each might be slightly better but not significantly. She is getting 1 more set of injections. She thinks this could be having problems due to her back. Will discuss further with Ortho. Has been doing stretches, was taking Tylenol Extra strength 1,000 mg at bedtime and prn during the day. No longer using Celebrex 100 mg BID and Flexeril 5 mg to take TID prn. Never used the Flexeril and the Celebrex did not help after taking for 1 month. Mammogram ordered and sent to [facility]. Her HOG OPERATOR was with [facility]. Has some sinus pressure, runny nose, headache, slight ear pain, drainage in the throat, feels like she has stuff stuck in the throat, has to clear her throat a lot, feels like she can't catch her breath at times, dry cough. No fevers or sore throat. She does have allergies and takes Claritin which doesn't seem to do much. No nasal sprays used. She states if she talks too much she will go hoarse. No chest pains or dizziness. No pain with breathing. Past medical history, appointments, medications, allergies reviewed. Previous Medical History PAST MEDICAL HISTORY Diagnosis Date Anxiety Chronic rhinitis deviated septum Diabetes mellitus type II, uncontrolled Esophageal reflux Moderate cervical dysplasia Other abnormal glucose Other and unspecified hyperlipidemia PMH - PAST MEDICAL HISTORY OF adopted Previous Surgical History PAST SURGICAL HISTORY Procedure Laterality Date CHOLECYSTECTOMY Cholecystectomy COLONOSCOPY FLX DX W/COLLJ SPEC WHEN PFRMD 11/30/98 Per repeat in EGD 11/30/98 Colonoscopy done at same time VAGINAL HYSTERECTOMY UTERUS 250 GM/< 1975 due to precancerous cells - not cancer Family History FAMILY HISTORY Adopted: Yes Patient Allergies ALLERGIES Allergen Reactions Benadryl [Diphenhyd* Caffeine Mental Status Change Compazine [Prochlor* Imipramine Mental Status Change Tcn [Tetracyclines] GI Upset Trulicity [Dulaglut* Mental Status Change Current Medications Current Outpatient Medications on File Prior to Visit Medication Sig insulin glargine 100 unit/mL (3 mL) Inject 50 Units subcutaneously daily at bedtime. LORazepam (ATIVAN) 1 mg tablet Take 1 tablet by mouth three times a day as needed for up to 90 days. celecoxib (CELEBREX) 100 mg capsule Take 1 capsule by mouth two times a day. cyclobenzaprine (FLEXERIL) 5 mg tablet Take 1 tablet by mouth three times a day. clobetasol (TEMOVATE) 0.05 % cream Apply to affected area two times a day. Insulin Upatoi, Disposable, (BD ULTRA-FINE HEAVEN PEN NEEDLE) 32 gauge x 5/32 Use one needle for each dose. 1/day. No current facility-administered medications on file prior to visit. Social History Social History Tobacco Use Smoking status: Never Smokeless tobacco: Never Vaping Use Vaping Use: Never used Substance Use Topics Alcohol use: Yes Comment: Selom Drug use: No EXAM: BP 182/78 Pulse 90 Resp 18 Wt 92 kg (202 lb 14.4 oz) BMI 35.94 kg/m General Appearance: Well appearing, alert, in no acute distress, well-hydrated, well nourished. and Overweight. Ears: External ears normal, canals clear. Oropharynx: Lips, mucosa, and tongue normal, teeth and gums normal, oropharynx normal. Neck: Supple, no adenopathy; thyroid symmetric, normal size. Lungs: Lungs clear to auscultation. No wheezing, rhonchi, rales.. Heart: RRR without murmur, gallop, or rubs. No ectopy. Health Maintenance List BP Controlled (<130/80) Never done DTaP,Tdap,Td Vaccine(1 - Tdap) Never done RSV Vaccine(1 - 1-dose 60+ series) Never done Mammogram Screening due on 06/04/2022 Advance Directive Discussion Never done Diabetic Foot Exam due on 01/30/2024 Dilated Retinal Exam due on 03/18/2024 Shingrix Vaccine(1 of 2) due on 05/26/2024 Covid-19 Vaccine(1 - season) due on 03/08/2025 Pneumococcal Vaccine: 65+(1 of 2 - PCV) due on 03/08/2025 Influenza Vaccine(1) due on 04/17/2024 HbA1C due on 05/18/2024 Urine Albumin:Creatinine Ratio due on 11/18/2024 Annual PCP Team Chronic Disease Visit due on 12/02/2024 LDL Cholesterol due on 02/15/2025 Colorectal Cancer Screening due on 01/02/2030 Bone Density Screening Completed Hepatitis C Screening Completed Data reviewed Appointment on 02/16/2024 Component Date Value Cholesterol, Total 02/16/2024 218 (H) Triglyceride 02/16/2024 129 HDL Cholesterol 02/16/2024 48 Non HDL Cholesterol 02/16/2024 170 (H) Fasting Time 02/16/2024 14 VLDL Cholesterol 02/16/2024 26 TC:HDL Ratio 02/16/2024 4.54 LDL Cholesterol 02/16/2024 144 (H) LDL:HDL Ratio 02/16/2024 3.00 (H) Protein, Total 02/16/2024 7.3 Albumin 02/16/2024 3.9 Calcium, Total 02/16/2024 9.1 Bilirubin, Total 02/16/2024 0.6 Alkaline Phosphatase 02/16/2024 73 AST 02/16/2024 20 ALT 02/16/2024 16 Glucose 02/16/2024 157 (H) BUN 02/16/2024 18 Creatinine 02/16/2024 0.65 Sodium 02/16/2024 137 Potassium 02/16/2024 4.5 Chloride 02/16/2024 102 CO2 02/16/2024 25 Anion Gap 02/16/2024 10 Estimated Glomerular Manohar* 02/16/2024 94 Hemoglobin A1C 02/16/2024 8.3 (H) Estimated Average Glucose 02/16/2024 192 ASSESSMENT/PLAN: 1. Type 2 diabetes mellitus with diabetic neuropathy, without long-term current use of insulin (HCC) - ICD9: 250.60, 357.2, ICD10: E11.40 (primary diagnosis) - Controlled - Continue current medications - Increase insulin to 55 units daily - Counseled on healthy diet and regular exercise - Discussed need for and benefit of weight loss. BMI 35.94 kg/(m^2) - COMPREHENSIVE METABOLIC PANEL - HEMOGLOBIN A1C 2. Mixed hyperlipidemia - ICD9: 272.2, ICD10: E78.2 - Uncontrolled - Counseled on healthy diet and regular exercise - Discussed need for and benefit of weight loss. BMI 35.94 kg/(m^2) - LIPID PANEL BASIC - COMPREHENSIVE METABOLIC PANEL 3. Essential hypertension - ICD9: 401.9, ICD10: I10 - Uncontrolled - Recommend home blood pressure monitoring, to bring results to next visit - Encouraged sodium restriction, DASH or Mediterranean diet - Recommend regular aerobic exercise - Discussed need for and benefit of weight loss. BMI 35.94 kg/(m^2) 4. Anxiety and depression - ICD9: 300.00, 311, ICD10: F41.9, F32.A Increased but stable Continue current medications. 5. Encounter for screening mammogram for malignant neoplasm of breast - ICD9: V76.12, ICD10: Z12.31 - Encouraged monthly BSE - Follow up for annual exam in one year. - [facility] SCREENING Order faxed to [facility], pt will call to schedule. 6. Allergy, initial encounter - ICD9: 995.3, ICD10: T78.40XA Continue with Claritin Follow up in 3 months with fasting labs piror. I agree with the Chief Complaint, ROS, and Past Histories independently gathered by the clinical ict support and test engineers and the remaining scribed note accurately describes my personal service to the patient. Medical Decision Making: Problems: Moderate: 2+ stable chronic illnesses Data: Unique test result(s) reviewed: 3+ Unique test(s) ordered: 3+ Risk: Moderate: Drug management Medical Decision Making Level: 4 - Moderate Janet Little MD The documentation for this note was completed by Santa Herrera MA acting as scribe for Janet Little MD. March 08, 2024 8:40 AM. Santa Herrera MA documented in this encounter [facility] 03-08-2024 Instructions Santa Herrera MA - 03/08/2024 8:54 AM EDT Bring in copy of Advanced directive for chart. Please have the eye doctor send diabetic eye exam report to our office at [phone]. Mammogram order faxed to [facility]. You can call to schedule. Increase insulin to 55 units daily. documented in this encounter [facility] 02-04-2024 History of Presen t illness Narrative Primary Care Pharmacy Visit CC (Reason for Consult): (E11.65) Uncontrolled type 2 diabetes mellitus with hyperglycemia (HCC) (primary encounter diagnosis) Goal(s): A1c <8% Last Collaborating Provider Visit: 12/03/[address] Little Maya Blanchard is a 73 year old female presenting for follow up visit in person. Patient consents to pharmacy collaborative practice agreement. Last Pharmacy Visit: 12/24/23 - insulin glargine increased to 40 units daily Interim Events: -01/01/24 - Lantus increased to 45 units daily by PCP HPI: Here with Kali Reports doing well Confirmed increasing dose of Lantus a few weeks ago Continuing to notice BGs come down Current DM Medications: Insulin glargine (Lantus) 45 units once daily Previously Trialed DM Meds: Trulicity - GI upset Jardiance - unable to tolerate Glimepiride Metformin IR/ER- GI intolerance Diet Denies any changes recently GLYCEMIC CONTROL: Glucometer present at visit: BG log present Hypoglycemia: No SMBGS (Fingersticks) Date Fasting AM 02/03 197 /19 145 6/18 204 6/17 188 6/16 158 6/15 219 6/14 160 6/13 239 6/12 197 6/11 214 6/10 171 6/9 195 6/8 177 6/7 195 6/6 203 6/5 207 6/4 196 6/3 196 6/2 122 6/1 144 AVG 186 Past medical history reviewed. ALLERGIES Allergen Reactions Benadryl [Diphenhyd* Caffeine Mental Status Change Compazine [Prochlor* Imipramine Mental Status Change Tcn [Tetracyclines] GI Upset Trulicity [Dulaglut* Mental Status Change Current Outpatient Medications Medication Sig Dispense Refill insulin glargine 100 unit/mL (3 mL) Inject 45 Units subcutaneously daily at bedtime. 15 mL 5 LORazepam (ATIVAN) 1 mg tablet Take 1 tablet by mouth three times a day as needed for up to 90 days. 90 tablet 2 celecoxib (CELEBREX) 100 mg capsule Take 1 capsule by mouth two times a day. 60 capsule 2 cyclobenzaprine (FLEXERIL) 5 mg tablet Take 1 tablet by mouth three times a day. 30 tablet 1 clobetasol (TEMOVATE) 0.05 % cream Apply to affected area two times a day. 15 g 2 Insulin Upatoi, Disposable, (BD ULTRA-FINE HEAVEN PEN NEEDLE) 32 gauge x 5/32 Use one needle for each dose. 1/day. 30 Each 11 No current facility-administered medications for this visit. Pill bottles are not present. Adherence: denies missed doses. Rx coverage: Payor: HU[employer]NA MEDICARE / Plan: [employer] MEDICARE PPO / Product Type: PPO / Medications affordable? Yes PHARMACOTHERAPY PREVENTATIVE MEDS: On SUNSHINE/ARB: No On Statin: No On ASA: No EXAM: There were no vitals taken for this visit. Last 3 Encounter BP Readings: Date: BP: 12/03/2023 168/72 08/28/2023 170/88 07/31/2023 188/80 Wt: 88.9 kg (196 lb) BMI: 34.72 kg/(m^2) LABS: Lab Results Component Value Date HBA1C 9.7 11/19/2023 HBA1C 12.0 08/18/2023 HBA1C 12.0 04/21/2023 HBA1C 12.0 03/18/2021 HBA1C 11.7 11/22/2020 HBA1C 11.2 08/14/2020 Glucose 185 11/19/2023 BUN 15 11/19/2023 Creatinine 0.61 11/19/2023 Sodium 141 11/19/2023 Potassium 4.3 11/19/2023 Chloride 103 11/19/2023 CO2 26 11/19/2023 Protein, Total 7.6 11/19/2023 Albumin 4.0 11/19/2023 Calcium 9.3 11/19/2023 Alkaline Phosphatase 77 11/19/2023 Bilirubin, Total 0.5 11/19/2023 AST 21 11/19/2023 ALT 18 11/19/2023 Lab Results Component Value Date CHOL 218 11/19/2023 CHOL 225 03/18/2021 LDL 134 11/19/2023 LDL 153 03/18/2021 HDL 50 11/19/2023 HDL 44 03/18/2021 TG 169 11/19/2023 TG 138 03/18/2021 Albumin/Creat Ratio (mg/g) Date Value 11/19/2023 98 (H) eGFR-All Other Races (.) Date Value 03/18/2021 >60 Estimated Glomerular Filtration Rate (mL/min/1.73m ) Date Value 11/19/2023 96 ASSESSMENT/PLAN: 1. Uncontrolled type 2 diabetes mellitus with hyperglycemia (HCC) - ICD9: 250.02, ICD10: E11.65 - Improving control - Increase Lantus to 50 units once daily - Blood glucose monitoring on a once daily schedule - Counseled on healthy diet and regular exercise - Discussed diabetic education issues of hypoglycemic/hyperglycemic symptoms - Follow up in 2 months, sooner should any other issues arise. - Due for A1c ~02/18/24 Follow Up: Next PCP visit: 03/08/24 Next PharmD visit: 04/07/24 Darcy Palma, PharmD, BCACP Primary Care Clinical Associate Dean Of Women I spent a total of 25 minutes on the date of the service which included preparing to see the patient, [id number] patient care, completing clinical documentation, counseling and educating the patient/family/caregiver, and ordering medications, tests, or procedures. documented in this encounter [facility] 02-04-2024 Instructions Darcy Palma RPh - 02/04/2024 9:30 AM EDT Increase Lantus to 50 units once daily documented in this encounter [facility] 01-25-2024 Telephone encounter Note Pt notified that placard is ready for picker / packer at medical records. Santa Herrera MA [facility] 01-25-2024 Miscellaneous Notes Pt notified that placard is ready for picker / packer at medical records. Santa Herrera MA Rx printed\ Janet Little MD Last OV: 12/03/23 Pt is calling to request a letter for a handicap placard. Pt reports with the pain in her legs she is having trouble walking very far. Call pt when letter is ready for picker / packer. Charlene Davison LPN documented in this encounter [facility] 01-25-2024 Telephone encounter Note Rx printed\ Janet Little MD [facility] 01-25-2024 Telephone encounter Note Last OV: 12/03/23 Pt is calling to request a letter for a handicap placard. Pt reports with the pain in her legs she is having trouble walking very far. Call pt when letter is ready for picker / packer. Charlene Davison LPN [facility] 01-01-2024 Telephone encounter Note Medication updated. Santa Herrera MA [facility] 01-01-2024 Miscellaneous Notes Medication updated. Santa Herrera MA Pt called and is notified of providers message and instructions. Pt voices understanding. Please update the Pt medication list. Malika Morales RN She may increase the insulin to 45 units daily Janet Little MD Pt called in and reports Dr Little increased her insulin glargine to 36 units on 12/03/23 and Darcy Palma increased her insulin to 40 units on 12/24/23. Pt was wanting to know if you were wanting to increase her dose again. AM fasting BS 12/24 233 5/ 198 5/12 247 5/13 233 5/14 202 5/15 220 /16 201 /17 150 Pt reports she has been having increased stress due to family issues. Her granddaughter has been in the hospital and they have been down in [place] trying to help their daughter deal with this. Please call and advise. Pt states she has an appointment with Darcy on 02/04/24. documented in this encounter [facility] 01-01-2024 Telephone encounter Note Pt called and is notified of providers message and instructions. Pt voices understanding. Please update the Pt medication list. Malika Morales RN [facility] 01-01-2024 Telephone encounter Note She may increase the insulin to 45 units daily Janet Little MD [facility] 01-01-2024 Telephone encounter Note Pt called in and reports Dr Little increased her insulin glargine to 36 units on 12/03/23 and Darcy Palma increased her insulin to 40 units on 12/24/23. Pt was wanting to know if you were wanting to increase her dose again. AM fasting BS 12/24 233 12/25 198 12/26 247 12/27 233 12/28 202 12/29 220 12/30 201 12/31 150 Pt reports she has been having increased stress due to family issues. Her granddaughter has been in the hospital and they have been down in [place] trying to help their daughter deal with this. Please call and advise. Pt states she has an appointment with Darcy on 02/04/24. [facility] 12-24-2023 History of Presen t illness Narrative Primary Care Pharmacy Visit CC (Reason for Consult): (E11.65) Uncontrolled type 2 diabetes mellitus with hyperglycemia (HCC) (primary encounter diagnosis) Goal(s): A1c <8% Last Collaborating Provider Visit: 12/03/[address] Little Maya Blanchard is a 73 year old female presenting for follow up visit in person. Patient consents to pharmacy collaborative practice agreement. Last Pharmacy Visit: 10/15/23 HPI: Reports doing well States she is happy with how her BGs have been improving and with her most recent A1c improvement Looking into getting gel shots for her knees, starting therapy on Thursday for this Current DM Medications: Insulin glargine (Lantus) 36 units once daily at bedtime Previously Trialed DM Meds: Trulicity - GI upset Jardiance - unable to tolerate Glimepiride Metformin IR/ER- GI intolerance GLYCEMIC CONTROL: Glucometer present at visit: BG log present Hypoglycemia: No SMBGS (Fingersticks) Date Fasting AM 12/23 210 5/8 190 5/7 223 5/6 230 5/5 193 5/3 190 5/2 173 12/14 154 12/12 184 12/11 213 12/10 185 AVG 195 Past medical history reviewed. ALLERGIES Allergen Reactions Benadryl [Diphenhyd* Caffeine Mental Status Change Compazine [Prochlor* Imipramine Mental Status Change Tcn [Tetracyclines] GI Upset Trulicity [Dulaglut* Mental Status Change Current Outpatient Medications Medication Sig Dispense Refill LORazepam (ATIVAN) 1 mg tablet Take 1 tablet by mouth three times a day as needed for up to 90 days. 90 tablet 2 celecoxib (CELEBREX) 100 mg capsule Take 1 capsule by mouth two times a day. 60 capsule 2 cyclobenzaprine (FLEXERIL) 5 mg tablet Take 1 tablet by mouth three times a day. 30 tablet 1 insulin glargine 100 unit/mL (3 mL) Inject 36 Units subcutaneously daily at bedtime. 15 mL 5 clobetasol (TEMOVATE) 0.05 % cream Apply to affected area two times a day. 15 g 2 Insulin Upatoi, Disposable, (BD ULTRA-FINE HEAVEN PEN NEEDLE) 32 gauge x 5/32 Use one needle for each dose. 1/day. 30 Each 11 No current facility-administered medications for this visit. Pill bottles are not present. Adherence: denies missed doses. Rx coverage: Payor: HU[employer] MEDICARE / Plan: [employer] MEDICARE PPO / Product Type: PPO / Medications affordable? Yes PHARMACOTHERAPY PREVENTATIVE MEDS: On SUNSHINE/ARB: No On Statin: No On ASA: No EXAM: There were no vitals taken for this visit. Last 3 Encounter BP Readings: Date: BP: 12/03/2023 168/72 08/28/2023 170/88 07/31/2023 188/80 Wt: 88.9 kg (196 lb) BMI: 34.72 kg/(m^2) LABS: Lab Results Component Value Date HBA1C 9.7 11/19/2023 HBA1C 12.0 08/18/2023 HBA1C 12.0 04/21/2023 HBA1C 12.0 03/18/2021 HBA1C 11.7 11/22/2020 HBA1C 11.2 08/14/2020 Glucose 185 11/19/2023 BUN 15 11/19/2023 Creatinine 0.61 11/19/2023 Sodium 141 11/19/2023 Potassium 4.3 11/19/2023 Chloride 103 11/19/2023 CO2 26 11/19/2023 Protein, Total 7.6 11/19/2023 Albumin 4.0 11/19/2023 Calcium 9.3 11/19/2023 Alkaline Phosphatase 77 11/19/2023 Bilirubin, Total 0.5 11/19/2023 AST 21 11/19/2023 ALT 18 11/19/2023 Lab Results Component Value Date CHOL 218 11/19/2023 CHOL 225 03/18/2021 LDL 134 11/19/2023 LDL 153 03/18/2021 HDL 50 11/19/2023 HDL 44 03/18/2021 TG 169 11/19/2023 TG 138 03/18/2021 Albumin/Creat Ratio (mg/g) Date Value 11/19/2023 98 (H) eGFR-All Other Races (.) Date Value 03/18/2021 >60 Estimated Glomerular Filtration Rate (mL/min/1.73m ) Date Value 11/19/2023 96 ASSESSMENT/PLAN: 1. Uncontrolled type 2 diabetes mellitus with hyperglycemia (HCC) - ICD9: 250.02, ICD10: E11.65 - Improving control - Increase Lantus to 40 units once daily - Blood glucose monitoring on a once daily schedule - Counseled on healthy diet and regular exercise - Follow up in 6 weeks, sooner should any other issues arise. Follow Up: Next PCP visit: 03/08/24 Next PharmD visit: 02/03/23 Darcy Palma PharmD Primary Care Clinical Associate Dean Of Women I spent a total of 30 minutes on the date of the service which included preparing to see the patient, [id number] patient care, completing clinical documentation, counseling and educating the patient/family/caregiver, and ordering medications, tests, or procedures. documented in this encounter [facility] 12-24-2023 Instructions Darcy Palma RPh - 12/24/2023 9:30 AM EDT Increase Lantus to 40 units once daily documented in this encounter [facility] 12-21-2023 Telephone encounter Note Call to pt and notified her that Rx's have been sent in. Pt verbalized understanding. Krysta Oliva MA [facility] 12-21-2023 Miscellaneous Notes Call to pt and notified her that Rx's have been sent in. Pt verbalized understanding. Krysta Oliva MA OK for Celebrex as ordered Janet Little MD Please review message below regarding Celebrex and advise. Krysta Oliva MA OK to refill as ordered Janet Little MD Please make sure you see message below and refill request. Nani Garibay LPN Patient has been identified by name and date of : Yes, Provider Dr. Little Date 12/21/23 Time 9:28 am Patient phones for refill(s): Requested Prescriptions Pending Prescriptions Disp Refills LORazepam (ATIVAN) 1 mg tablet 90 tablet 0 Sig: Take 1 tablet by mouth three times a day as needed for up to 30 days. Date of last office visit in primary care: 12/03/2023 Date of next office visit in primary care: 03/08/2024 Please advise. Thank you. Nani Garibay LPN. Patient reports she is seeing Dr. Scruggs- [facility], for her knees. Dr. Scruggs instructed her to call pcp to ask if pcp could write a prescription for patient for celebrex, to take for her knees. Reports Dr. Scruggs wanted her to check with pcp, to make sure her kidney function is ok for this medication. Please phone patient with reply: [phone] documented in this encounter [facility] 12-21-2023 Telephone encounter Note OK for Celebrex as ordered Janet Little MD [facility] 12-21-2023 Telephone encounter Note Please review message below regarding Celebrex and advise. Krysta Oliva MA [facility] 12-21-2023 Telephone encounter Note OK to refill as ordered Janet Little MD [facility] 12-21-2023 Telephone encounter Note Please make sure you see message below and refill request. Nani Garibay LPN Patient has been identified by name and date of : Yes, Provider Dr. Little Date 12/21/23 Time 9:28 am Patient phones for refill(s): Requested Prescriptions Pending Prescriptions Disp Refills LORazepam (ATIVAN) 1 mg tablet 90 tablet 0 Sig: Take 1 tablet by mouth three times a day as needed for up to 30 days. Date of last office visit in primary care: 12/03/2023 Date of next office visit in primary care: 03/08/2024 Please advise. Thank you. Nani Garibay LPN. [facility] 12-21-2023 Telephone encounter Note Patient reports she is seeing Dr. Scruggs- [facility], for her knees. Dr. Scruggs instructed her to call pcp to ask if pcp could write a prescription for patient for celebrex, to take for her knees. Reports Dr. Scruggs wanted her to check with pcp, to make sure her kidney function is ok for this medication. Please phone patient with reply: [phone] [facility] 12-14-2023 Telephone encounter Note Called back, notified of information below. Santa Herrera MA [facility] 12-14-2023 Miscellaneous Notes Called back, notified of information below. Santa Herrera MA She has declined to take statins due to poor tolerance of medications; will address again at her next visit Janet Little MD Rhiannon with [employer] called and reports she is with Pts insurance and she has diabetes. She was asking if Pt was on a statin, let her know she is not. She was asking if the provider would want to place her on one to close the gap. She asked how to best contact provider gave her fax # [phone]. Can call her back with providers answer at [phone]. documented in this encounter [facility] 12-14-2023 Telephone encounter Note She has declined to take statins due to poor tolerance of medications; will address again at her next visit Janet Little MD [facility] 12-14-2023 Telephone encounter Note Rhiannon with [facility] called and reports she is with Pts insurance and she has diabetes. She was asking if Pt was on a statin, let her know she is not. She was asking if the provider would want to place her on one to close the gap. She asked how to best contact provider gave her fax # [phone]. Can call her back with providers answer at [phone]. [facility] 12-03-2023 Instructions Santa Herrera MA - 12/03/2023 9:20 AM EDT Increase Insulin to 36 units at bedtime documented in this encounter [facility] 12-03-2023 History of Presen t illness Narrative Chief Complaint Patient presents with: F/U 3 Month HPI Maya Blanchard is a 73 year old female who presents here today for a 3 month follow up. Pt here today for her routine follow up. Here with her who had right thumb surgery 6 weeks ago. Has some urinary incontinence, not any worse. Uses a pad. No pain with urination. JACLYN/Depression: Chronic. At this time overall doing fairly well with current regimen of Ativan 1 mg 1 tab po bid to TID prn. Still following with Counselor that works out of [facility], the counselor is a good [employer] Counselor, which is very helpful. She is able to go out and do things more without the anxiety being as severe. Still has it but is getting easier to manage. Pt feels that she is making progress. HTN: Uncontrolled, currently on no medications at this time; has not tolerated medication in the past. Denies checking her BP at home, no chest pain, sob or dizziness. DM: Uncontrolled. Currently following with Pharmacy to help better control DM. Pt has previously tried medications, but d/c them due to side effects. Pt currently taking Lantus 32 units once daily. Feels her sugar and A1c being elevated is related to her stress and anxiety. Denies any lows. Has some neuropathy symptoms in toes. Trying to watch diet and not eating as much sweets. Checking BS once daily with FBS today of 187, lowest reading since insulin dosage change was 183 yesterday. Lipids: Currently on no medication, uncontrolled. Rides stationary bike 12-30 minutes a day. Trying to watch diet. Hx of TIA, symptoms stable at this time. Pain: yahir legs; seems to be getting worse. Left leg worse than Right. Does not feel this is sciatica states it feels different Pain to touch the upper legs. She is going to make appt to see Dr. Lim with [facility] for her knee pain. She has lower leg and ankle pain and tightness. She likes to sleep on her side but she will start getting pain to the hips and legs. She is laying on her back to sleep when she can with a pillow under her knees. She has used Tylenol and Ibuprofen but those have not helped. Has not used any heat or ice, no stretching done. Riding her stationary bike does not help the pain but it does not make the pain any worse. Pt not sure how much of her leg pain is due to the diabetes or muscular. Has pain with walking, long distance and climbing stairs causes her lower legs to tighten up. Skin: red lump on the back of the right thigh, has been there a long time. It does get sore but noticed the last week it has gotten bigger. She denies drainage. Never comes to a head. Past medical history, appointments, medications, allergies reviewed. Previous Medical History PAST MEDICAL HISTORY Diagnosis Date Anxiety Chronic rhinitis deviated septum Diabetes mellitus type II, uncontrolled Esophageal reflux Moderate cervical dysplasia Other abnormal glucose Other and unspecified hyperlipidemia PMH - PAST MEDICAL HISTORY OF adopted Previous Surgical History PAST SURGICAL HISTORY Procedure Laterality Date CHOLECYSTECTOMY Cholecystectomy COLONOSCOPY FLX DX W/COLLJ SPEC WHEN PFRMD 11/30/98 Per repeat in EGD 11/30/98 Colonoscopy done at same time VAGINAL HYSTERECTOMY UTERUS 250 GM/< 1975 due to precancerous cells - not cancer Family History FAMILY HISTORY Adopted: Yes Patient Allergies ALLERGIES Allergen Reactions Benadryl [Diphenhyd* Caffeine Mental Status Change Compazine [Prochlor* Imipramine Mental Status Change Tcn [Tetracyclines] GI Upset Trulicity [Dulaglut* Mental Status Change Current Medications Current Outpatient Medications on File Prior to Visit Medication Sig LORazepam (ATIVAN) 1 mg tablet Take 1 tablet by mouth three times a day as needed for up to 30 days. insulin glargine 100 unit/mL (3 mL) Inject 32 Units subcutaneously daily at bedtime. clobetasol (TEMOVATE) 0.05 % cream Apply to affected area two times a day. Insulin Upatoi, Disposable, (BD ULTRA-FINE HEAVEN PEN NEEDLE) 32 gauge x Use one needle for each dose. 1/day. No current facility-administered medications on file prior to visit. Social History Social History Tobacco Use Smoking status: Never Smokeless tobacco: Never Vaping Use Vaping Use: Never used Substance Use Topics Alcohol use: Yes Comment: Selom Drug use: No EXAM: BP 168/72 Pulse 78 Resp 16 Wt 88.9 kg (196 lb) BMI 34.72 kg/m General Appearance: Well appearing, alert, in no acute distress, well-hydrated, well nourished. and Obese. Skin: benign nodule under skin, back of right thigh. Lungs: Lungs clear to auscultation. No wheezing, rhonchi, rales.. Heart: RRR with systolic murmur Health Maintenance List BP Controlled (<130/80) Never done RSV Vaccine(1 - 1-dose 60+ series) Never done Covid-19 Vaccine( - season) Never done Advance Directive Discussion Never done Mammogram Screening due on 01/30/2024 DTaP,Tdap,Td Vaccine(1 - Tdap) due on 01/30/2024 Pneumococcal Vaccine: 65+(1 of 2 - PCV) due on 01/30/2024 Shingrix Vaccine(1 of 2) due on 05/26/2024 Diabetic Foot Exam due on 01/30/2024 HbA1C due on 02/18/2024 Dilated Retinal Exam due on 03/18/2024 Influenza Vaccine(Season Ended) due on 04/17/2024 Annual PCP Team Chronic Disease Visit due on 08/28/2024 Urine Albumin:Creatinine Ratio due on 11/18/2024 LDL Cholesterol due on 11/18/2024 Colorectal Cancer Screening due on 01/02/2030 Bone Density Screening Completed Hepatitis C Screening Completed Data reviewed Appointment on 11/19/2023 Component Date Value Cholesterol, Total 11/19/2023 218 (H) Triglyceride 11/19/2023 169 (H) HDL Cholesterol 11/19/2023 50 Non HDL Cholesterol 11/19/2023 168 (H) Fasting Time 11/19/2023 12 VLDL Cholesterol 11/19/2023 34 (H) TC:HDL Ratio 11/19/2023 4.36 LDL Cholesterol 11/19/2023 134 (H) LDL:HDL Ratio 11/19/2023 2.68 (H) Protein, Total 11/19/2023 7.6 Albumin 11/19/2023 4.0 Calcium, Total 11/19/2023 9.3 Bilirubin, Total 11/19/2023 0.5 Alkaline Phosphatase 11/19/2023 77 AST 11/19/2023 21 ALT 11/19/2023 18 Glucose 11/19/2023 185 (H) BUN 11/19/2023 15 Creatinine 11/19/2023 0.61 Sodium 11/19/2023 141 Potassium 11/19/2023 4.3 Chloride 11/19/2023 103 CO2 11/19/2023 26 Anion Gap 11/19/2023 12 Estimated Glomerular Manohar* 11/19/2023 96 Hemoglobin A1C 11/19/2023 9.7 (H) Estimated Average Glucose 11/19/2023 232 Creatinine, Ur Random (U* 11/19/2023 148.4 Albumin, Urine Random 11/19/2023 146.1 Albumin/Creat Ratio 11/19/2023 98 (H) ASSESSMENT/PLAN: 1. Anxiety and depression - ICD9: 300.00, 311, ICD10: F41.9, F32.A (primary diagnosis) Improving Continue current medications. Continue with Counseling 2. Mixed hyperlipidemia - ICD9: 272.2, ICD10: E78.2 - Uncontrolled - Counseled on healthy diet and regular exercise - Discussed need for and benefit of weight loss. BMI 34.72 kg/(m^2) 3. Essential hypertension - ICD9: 401.9, ICD10: I10 - Uncontrolled - Recommend home blood pressure monitoring, to bring results to next visit - Encouraged sodium restriction, DASH or Mediterranean diet - Recommend regular aerobic exercise - Discussed need for and benefit of weight loss. BMI 34.72 kg/(m^2) 4. History of stroke - ICD9: V12.54, ICD10: Z86.73 5. Type 2 diabetes mellitus with diabetic neuropathy, without long-term current use of insulin (HCC) - ICD9: 250.60, 357.2, ICD10: E11.40 - Improving - Increase insulin to 36 units at bedtime - Counseled on healthy diet and regular exercise - Discussed need for and benefit of weight loss. BMI 34.72 kg/(m^2) - continue with Pharmacist 6. Nodule of skin of right lower extremity - ICD9: 782.2, ICD10: R22.41 Benign, no tx, continue to monitor 7. Leg pain, bilateral - ICD9: 729.5, ICD10: M79.604, M79.605 Consult Physical Therapy Recommend continued use of Tylenol or Ibuprofen Recommend trying heat/ice, stretching Rx given for Flexeril 5 mg TID prn Follow up in 3 months with fasting labs prior. I agree with the Chief Complaint, ROS, and Past Histories independently gathered by the clinical ict support and test engineers and the remaining scribed note accurately describes my personal service to the patient. Medical Decision Making: Problems: Moderate: 2+ stable chronic illnesses Data: Unique test result(s) reviewed: 3+ Unique test(s) ordered: 3+ Risk: Moderate: Drug management Medical Decision Making Level: 4 - Moderate Janet Little MD The documentation for this note was completed by Santa Herrera MA acting as scribe for Janet Little MD. December 03, 2023 8:45 AM. Santa Herrera MA documented in this encounter [facility] 11-16-2023 Miscellaneous Notes Approved. PDMP website checked and validated. All prescriptions have been APPROPRIATELY filled. No suspicious activity was identified. 11/16/2023 by Reno Moore APRN.TELEPHONE REPAIRER The following approved medication requests have been transmitted electronically. Requested Prescriptions Signed Prescriptions Disp Refills LORazepam (ATIVAN) 1 mg tablet 90 tablet 0 Sig: Take 1 tablet by mouth three times a day as needed for up to 30 days. Authorizing Provider: RENO MOORE APRN.CNP [facility] 08/28/23 NOV 12/03/23 Patient has been identified by name and date of : Yes Requested Prescriptions Pending Prescriptions Disp Refills LORazepam (ATIVAN) 1 mg tablet [Pharmacy Med Name: LORAZEPAM 1 MG TABLET] 90 tablet Sig: Take 1 tablet by mouth three times a day as needed. RX INSTRUCTIONS: Pharmacy initiated this request. No need to notify patient. Keyla Blair Pss documented in this encounter [facility] 11-09-2023 Miscellaneous Notes PharmD called Serge Lewis. Confirmed that patient picked up 1 box (15 mL) of Basaglar on 10/30 for $70. medication reconciliation technician stated that Lantus is currently on back-order. Last time insulin was filled the patient received Lantus 6 mL (2 pens) for $35, which is roughly the same cost as Basaglar. PharmD returned call to spouse, Kali. States he got a letter in the mail on Thursday from [employer] - Your medication is not on our list of covered drugs.. Says it is not covering Basaglar. Paper does NOT include list of other alternative insulins. PharmD advised patient to call insurance to request a list of insulins that are covered with insurance and then contact PharmD/PCP office with that list. OR, can wait until patient is able to get insulin refilled and seeing if insurance rejects the refill, then can send in a new script based on the list of covered insulin alternatives provided by pharmacy. Patient has 45+ days of insulin. Spouse appreciated the call, no further questions at this time. Tamela Pham PharmD, BCPS (covering for Darcy Palma) Primary Care Clinical Pharmacist Spouse calling to let you know that Basaglar Insulin is not covered thru pt's insurance and they want to switch back to Lantus. Please advise spouse. Nani Garibay LPN documented in this encounter [facility] 10-28-2023 Miscellaneous Notes If no other recent relevant changes and fasting BGs still elevated above goal, would recommend increasing insulin glargine dose to 32 units daily. Called patient to discuss further; unable to reach. Left VM. Will attempt to reach patient again tomorrow. Darcy Palma PharmD Primary Care Clinical Associate Dean Of Women Patient calling since her Glargine was increased to 28 units at bedtime her fasting blood sugars have still been high since beginning of October. She said 4 times her fasting blood sugar was 300. She only tests once daily. Patient said her next appt is not until December, thinks she needs to have appt sooner? Patient said she did not think her diet has changed, but sugars are increasing. Please advise documented in this encounter [facility] 10-16-2023 Miscellaneous Notes Pts called in and was asking about the insulin glargine. He states pharmacist took his off Lantus and put her in this insulin. I told him this is Lantus, just by a different name. documented in this encounter [facility] 10-15-2023 History of Presen t illness Narrative Primary Care Pharmacy Visit CC (Reason for Consult): (E11.65) Type 2 diabetes mellitus with hyperglycemia, unspecified whether care home insulin use (HCC) (primary encounter diagnosis) Goal(s): A1c <8% Last Collaborating Provider Visit: 08/28/[address] Anabel Trejo Lo is a 73 year old female presenting for follow up visit in person. Patient consents to pharmacy collaborative practice agreement. Last Pharmacy Visit: 09/10/23 - Lantus increased to 24 units once daily HPI: Here with , Kali Reports BGs have continued to improve Reports BGs were in 300s before starting insulin Confirmed increasing dose of Lantus at end of August after last visit States does not feel like she is urinating as often anymore States she feels like she has some discomfort in her abdomen, confirmed she is rotating sites of insulin injection; however, it is not painful Has noticed some sweating at night but not happening as often anymore Current DM Medications: Insulin glargine (Lantus) 24 units once daily at bedtime Previously Trialed DM Meds: Trulicity - GI upset Jardiance - unable to tolerate Glimepiride Metformin IR/ER- GI intolerance Diet Trying to watch how many carbs in diet recently Drinking water or sparkling water Drinks a little bit of juice in the morning GLYCEMIC CONTROL: Glucometer present at visit: BG log Hypoglycemia: No SMBGS (Fingersticks) Date Fasting AM 234 10/13 233 10/12 208 10/11 279 10/10 256 10/09 262 10/08 188 10/07 211 10/06 237 10/05 200 17 186 14 148 09/28 160 09/27 201 09/23 177 09/22 207 AVG 211 Past medical history reviewed. ALLERGIES Allergen Reactions Benadryl [Diphenhyd* Caffeine Mental Status Change Compazine [Prochlor* Imipramine Mental Status Change Tcn [Tetracyclines] GI Upset Trulicity [Dulaglut* Mental Status Change Current Outpatient Medications Medication Sig Dispense Refill insulin glargine 100 unit/mL (3 mL) Inject 24 Units subcutaneously daily at bedtime. clobetasol (TEMOVATE) 0.05 % cream Apply to affected area two times a day. 15 g 2 LORazepam (ATIVAN) 1 mg tablet Take 1 tablet by mouth three times a day as needed for anxiety for up to 90 days. 90 tablet 2 Insulin [place]oi, Disposable, (BD ULTRA-FINE HEAVEN PEN NEEDLE) 32 gauge x /32 Use one needle for each dose. 1/day. 30 Each 11 No current facility-administered medications for this visit. Pill bottles are not present. Adherence: denies missed doses. Rx coverage: Payor: [employer] MEDICARE / Plan: [employer] MEDICARE PPO / Product Type: PPO / Medications affordable? Yes PHARMACOTHERAPY PREVENTATIVE MEDS: On SUNSHINE/ARB: No On Statin: No On ASA: No EXAM: There were no vitals taken for this visit. Last 3 Encounter BP Readings: Date: BP: 08/28/2023 170/88 07/31/2023 188/80 05/26/2023 152/70 Wt: 90.2 kg (198 lb 12.8 oz) BMI: 35.22 kg/(m^2) LABS: Lab Results Component Value Date HBA1C 12.0 08/18/2023 HBA1C 12.0 04/21/2023 HBA1C 12.2 01/22/2023 HBA1C 12.0 03/18/2021 HBA1C 11.7 11/22/2020 HBA1C 11.2 08/14/2020 Glucose 293 08/18/2023 BUN 11 08/18/2023 Creatinine 0.57 08/18/2023 Sodium 136 08/18/2023 Potassium 4.5 08/18/2023 Chloride 99 08/18/2023 CO2 27 08/18/2023 Protein, Total 7.1 08/18/2023 Albumin 3.9 08/18/2023 Calcium 9.2 08/18/2023 Alkaline Phosphatase 77 08/18/2023 Bilirubin, Total 0.7 08/18/2023 AST 19 08/18/2023 ALT 17 08/18/2023 Lab Results Component Value Date CHOL 219 08/18/2023 CHOL 225 03/18/2021 LDL 131 08/18/2023 LDL 153 03/18/2021 HDL 47 08/18/2023 HDL 44 03/18/2021 TG 206 08/18/2023 TG 138 03/18/2021 Albumin/Creat Ratio (mg/g) Date Value 10/08/2022 70 (H) eGFR-All Other Races (.) Date Value 03/18/2021 >60 Estimated Glomerular Filtration Rate (mL/min/1.73m ) Date Value 08/18/2023 97 ASSESSMENT/PLAN: 1. Type 2 diabetes mellitus with hyperglycemia, unspecified whether extermination supervisor insulin use (HCC) - ICD9: 250.00, ICD10: E11.65 - Improving control. A1c not at goal <8%. FBGs continue to improve, still averaging above goal. Will continue to titrate basal insulin dose for additional glycemic lowering. Patient with history of intolerances to alternative antihyperglycemic agents. - Increase Lantus to 28 units once daily - Blood glucose monitoring on a once daily schedule - Counseled on healthy diet and regular exercise - Discussed diabetic education issues of diabetes complications and monitoring required and hypoglycemic/hyperglycemic symptoms - Follow up in 2 months, sooner should any other issues arise. Follow Up: Next PCP visit: 12/03/23 Next PharmD visit: 12/24/23 Darcy Palma PharmD Primary Care Clinical Associate Dean Of Women The majority of the pharmacy visit (> 50%) was spent counseling and/or coordinating care for the patient. interaction: face to face time was 25 minutes. documented in this encounter [facility] 10-15-2023 Instructions Darcy Palma RPh - 10/15/2023 9:30 AM EST Increase Lantus to 28 units once daily documented in this encounter [facility] 08-28-2023 History of Past i llness Narrative Problem Noted Date Diagnosed Date Resolved Date Severe obesity (BMI 35.0-39. 9) with comorbidity 08/28/2023 12/03/2023 Elevated BP 06/30/2012 08/28/2016 Nonspecific abnormal results of thyroid function study 10/05/2007 08/28/2016 Overview: TSH Sep 2007 Essential hypertension, benign 09/02/2007 06/30/2012 Dysmetabolic syndrome X 09/12/200508/17 Other abnormal glucose 08/28 Overview: 123 Sep 2007 documented as of this encounter (statuses as of 12/04/2023) [facility]12-07[facility] Miscellaneous Notes* Telephone Encounter - Reno Moore APRN.CNP - 07/23/2023 7:27 AM EST Approved. [facility] website checked and validated. All prescriptions have been APPROPRIATELY filled. No suspiciousactivity was identified. 07/23/2023 by Reno Moore APRN.CNP The following approved medication requests have been transmitted electronically. Requested Prescriptions Signed Prescriptions Disp Refills LORazepam (ATIVAN) 1 mg tablet 90 tablet 2 Sig: Take 1 tablet by mouth three times a day as needed for anxiety for up to 90 days. Authorizing Provider: RENO MOORE APRN.CNP * Telephone Encounter - Raiza Najera Ma - 07/22/2023 8:28 AM EST Patient last visit with PCP 05/26/23 Follow up appointment scheduled none Raiza Najera Ma * Telephone Encounter - Sultana Crowe - 07/22/2023 8:25 AM EST Pharmacy verified in [facility] Patient has been identified by name and date of : Yes Patient aware RX will be sent to pharmacy. No need to notify patient. Patient phones for refill(s): Requested Prescriptions Pending Prescriptions Disp Refills LORazepam (ATIVAN) 1 mg tablet 90 tablet 2 Sig: Take 1 tablet by mouth three times a day as needed for anxiety for up to 90 days. Date of last office visit : Visit date not found Date of next office visit : Visit date not found Last 2 Encounter Wt Readings: Date: Wt: 05/26/2023 90.1 kg (198 lb 9.6 oz) 04/01/2023 92 kg (202 lb 12.8 oz) Not applicable Please advise. Sultana Tillman Pss [facility] History of Present illness Narrative* Tamela Pham RPh - 06/25/2023 9:52 AM EST Primary Care Pharmacy Panel Management This patient has been identified through panel management efforts by the primary care pharmacy team. In recent PCP note, PCP noted patient has denied treatment for DM though was recently started on insulin. Forwarding to PCP to review to see if he thinks patient would be interested in working with PharmD for DM mngt. If so, please consider placing a Consult to Pharmacy. Tamela Pham RPh [facility] Miscellaneous Notes* Telephone Encounter - Santa Herrera Ma - 05/26/2023 10:49 AM EDT Insulin refilled during OV today. Santa Herrera Ma [facility] History of Present illness Narrative* Janet Little MD - 05/26/2023 10:00 AM EDT Chief Complaint Patient presents with: F/U 3 Month HPI Maya Blanchard is a 73 year old female who presents here today for 3-4 month follow up. Here today for her 3-4 month follow up. HTN - No chest pains, dizziness, or SOB. Denies checking BP at home. Currently on no medications. Prefers to not take any medication. JACLYN/Depression: Stable doing much better than she use to be. Feels a little more anxious than she has been due to starting to talk to her Son that they haven't talked to in quite some time. Sent a text saying they wanted to come visit last week and didn't hear from him in a week, but he did respondand they are working out the details. Hoping that it all works out. Is taking Ativan 1 mg 1 pill TID prn. On most days taking this bid, feels she does well on that dosage. Doing counseling which is helpful. Her Counselor feels she's doing much better. DM/Lipid - Pt has uncontrolled DM and Lipid but decline tx. Checks sugars every morning, reports this is high. Fasting ranging around 200-300, this am was 278. No lows or neuropathy symptoms. She tried Trulicity but d/c due to side effects. Pt reports sensitivity to medications and prefers to not take them; has tried multiple medications in the past and has not tolerated any of them due to side effects. A1c on 04/21/23 12.0. Follows with [facility] out of [place] every 6 months, [address] Noland. Would like to discuss medication options to help better control her diabetes for her overall health. TIA - Hx of TIA. - Receives Mammogram outside of [facility], but overdue. Declines Flu shot. Declines Shingrix vaccine. Has Living Will, can bring in copy of this for her records. Past medical history, appointments, medications, allergies reviewed. Previous Medical History PAST MEDICAL HISTORY Diagnosis Date Anxiety Chronic rhinitis deviated septum Diabetes mellitus type II, uncontrolled Esophageal reflux Moderate cervical dysplasia Other abnormal glucose Other and unspecified hyperlipidemia PMH - PAST MEDICAL HISTORY OF adopted Previous Surgical History PAST SURGICAL HISTORY Procedure Laterality Date CHOLECYSTECTOMY Cholecystectomy COLONOSCOPY FLX DX W/COLLJ SPEC WHEN PFRMD 11/30/98 Per repeat in EGD 11/30/98 Colonoscopy done at same time VAGINAL HYSTERECTOMY UTERUS 250 GM/< 1975 due to precancerous cells - not cancer Family History FAMILY HISTORY Adopted: Yes Patient Allergies ALLERGIES Allergen Reactions Benadryl [Diphenhyd* Caffeine Mental Status Change Compazine [Prochlor* Imipramine Mental Status Change Tcn [Tetracyclines] GI Upset Trulicity [Dulaglut* Mental Status Change Current Medications Current Outpatient Medications on File Prior to Visit Medication Sig LORazepam (ATIVAN) 1 mg tablet Take 1 tablet by mouth three times daily as needed for anxiety for up to 90 days. clobetasol (TEMOVATE) 0.05 % cream Apply to affected area twice daily. No current facility-administered medications on file prior to visit. Social History Social History Tobacco Use Smoking status: Never Smokeless tobacco: Never Vaping Use Vaping Use: Never used Substance Use Topics Alcohol use: Yes Comment: Selom Drug use: No EXAM: BP 152/70 (BP Site: Left Arm, BP Position: Sitting, BP Cuff Size: Large Adult) Pulse 92 Resp 18 Wt 90.1 kg (198 lb 9.6 oz) BMI 35.18 kg/m General Appearance: Well appearing, alert, in no acute distress, well-hydrated, well nourished. andObese. Lungs: Lungs clear to auscultation. No wheezing, rhonchi, rales.. Heart: RRR without murmur, gallop, or rubs. No ectopy. Health Maintenance List BP Controlled (<130/80) Never done Shingrix Vaccine(1 of 2) Never done Hepatitis B Vaccine(1 of 3 - Risk 3-dose series) Never done Dilated Retinal Exam due on 09/23/2019 Advance Directive Discussion Never done Influenza Vaccine(1) due on 04/17/2023 Mammogram Screening due on 01/30/2024 DTaP,Tdap,Td Vaccine(1 - Tdap) due on 01/30/2024 Covid-19 Vaccine(1) due on 01/30/2024 Pneumococcal Vaccine: 65+(1 - PCV) due on 01/30/2024 HbA1C due on 07/21/2023 Urine Albumin:Creatinine Ratio due on 10/08/2023 Diabetic Foot Exam due on 01/30/2024 Annual PCP Team Chronic Disease Visit due on 01/30/2024 LDL Cholesterol due on 04/21/2024 Colorectal Cancer Screening due on 01/02/2030 Bone Density Screening Completed Hepatitis C Screening Completed Data reviewed Appointment on 04/21/2023 Component Date Value Protein, Total 04/21/2023 7.3 Albumin 04/21/2023 3.8 (L) Calcium, Total 04/21/2023 9.5 Bilirubin, Total 04/21/2023 0.7 Alkaline Phosphatase 04/21/2023 84 AST 04/21/2023 27 ALT 04/21/2023 24 Glucose 04/21/2023 309 (H) BUN 04/21/2023 14 Creatinine 04/21/2023 0.58 Sodium 04/21/2023 134 (L) Potassium 04/21/2023 4.9 Chloride 04/21/2023 98 CO2 04/21/2023 23 Anion Gap 04/21/2023 13 Estimated Glomerular Manohar* 04/21/2023 97 Cholesterol, Total 04/21/2023 229 (H) Triglyceride 04/21/2023 185 (H) HDL Cholesterol 04/21/2023 46 Non HDL Cholesterol 04/21/2023 183 (H) Fasting Time 04/21/2023 12 VLDL Cholesterol 04/21/2023 37 (H) TC:HDL Ratio 04/21/2023 4.98 LDL Cholesterol 04/21/2023 146 (H) LDL:HDL Ratio 04/21/2023 3.17 (H) Hemoglobin A1C 04/21/2023 12.0 (H) Estimated Average Glucose 04/21/2023 298 Office Visit on 04/01/2023 Component Date Value GLUCOSE UA (POCT) 04/01/2023 >=1000 (A) BILIRUBIN UA (POCT) 04/01/2023 Negative KETONE UA (POCT) 04/01/2023 15 (A) SPECIFIC GRAVITY UA (POC* 04/01/2023 1.020 HEMOGLOBIN/BLOOD UA (PO* 04/01/2023 Trace-intact (A) PH UA (POCT) 04/01/2023 5.0 PROTEIN UA (POCT) 04/01/2023 Negative UROBILINOGEN UA (POCT) 04/01/2023 0.2 NITRITE UA (POCT) 04/01/2023 Negative LEUKOCYTES UA (POCT) 04/01/2023 Negative COLOR UA (POCT) 04/01/2023 Yellow CLARITY UA (POCT) 04/01/2023 Cloudy Culture, Urine 04/01/2023 >=100,000 CFU/ml Escherichia coli (A) ASSESSMENT/PLAN: 1. Anxiety and depression - ICD9: 300.00, 311, ICD10: F41.9, F32.A (primary diagnosis) - Stable on current regimen - Continue with Counseling - Continue current medication regimen. 2. Uncontrolled type 2 diabetes mellitus with hyperglycemia (HCC) - ICD9: 250.02, ICD10: E11.65 - Uncontrolled - Start Lantus 10 units - COMP METABOLIC PANEL - LIPID PANEL BASIC - HGB A1C 3. Essential hypertension - ICD9: 401.9, ICD10: I10 - Elevated, but stable - Recommend home blood pressure monitoring, to bring results to next visit - Encouraged sodium restriction, DASH or Mediterranean diet - Recommend regular aerobic exercise - COMP METABOLIC PANEL - LIPID PANEL BASIC 4. Mixed hyperlipidemia - ICD9: 272.2, ICD10: E78.2 - Stable, without medication - Counseled on healthy diet and regular exercise - COMP METABOLIC PANEL - LIPID PANEL BASIC 5. Arterial ischemic stroke, MCA (middle cerebral artery), left, acute (HCC) - ICD9: 434.91, ICD10:I63.512 - Stable Follow up in 3 months with labs. Update me in 3-4 weeks with how she is doing on the lantus I agree with the Chief Complaint, ROS, and Past Histories independently gathered by the clinical ict support and test engineers and the remaining scribed note accurately describes my personal service to the patient. Medical Decision Making: Problems: Moderate: 2+ stable chronic illnesses Data: Unique test result(s) reviewed: 3+ Unique test(s) ordered: 3+ Risk: Moderate: Drug management Medical Decision Making Level: 4 - Moderate Janet Little MD The documentation for this note was completed by Krysta Oliva Ma acting as scribe for Janet Little MD. May 26, 2023 10:23 AM. Krysta Oliva Ma [facility] Instructions* Patient Instructions* Krysta Oliva Ma - 05/26/2023 9:56 AM EDT Send copy of living will for your records, to be scanned into your chart. Start Lantus 10 units once daily in the evening. Will send to pharmacy, hopefully insurance will cover this. If any issues we will send in a different insulin to use in place of this to do the same thing. Update office in 3-4 weeks via [employer] with your blood sugars. [facility] Miscellaneous Notes* Telephone Encounter - Azul Styles - 05/22/2023 10:00 AM EDT Pt informed, verbalized understanding Azul Styles MA * Telephone Encounter - Janet Little MD - 05/22/2023 9:53 AM EDT Yes, she may use the OTC supplement along with the lorazepam Janet Little MD * Telephone Encounter - Elle Pagan RN - 05/21/2023 10:37 AM EDT Patient calling and asking if Dr. Little can advise her: Reports she takes Lorazepam 1 mg three times a day as needed for anxiety. She is asking if okay to supplement with a OTC product called EYAL. Reports it is a LEILA supplement used to promote less anxiety. Pt asking if PCP feels this is okay for her to take with her lorazepam? Please advise. Thank you. [facility] Miscellaneous Notes* Telephone Encounter - Britta Trent Cma - 05/05/2023 1:39 PM EDT Patient notified and verbalized understanding Britta Trent Cma * Telephone Encounter - Janet Little MD - 05/05/2023 1:31 PM EDT OK to refill as ordered Janet Little MD * Telephone Encounter - Nani Garibay LPN - 05/05/2023 12:20 PM EDT Pt calling in because the new prescription that was sent to the pharmacy on 04/22/23 for her Lorazepam she was only given 30 tablets because it says 1 per day. She was not given 90 tablets. This was changed a while ago and pt may take up to 3 per day as needed and she is going to run out. Pt asking for a new prescription to be sent to the pharmacy with the corrected directions put on it taking up to 3 per day as needed and for a qty of 90 with refills if possible. Please advise pt when this has been done. Nani Garibay LPN [facility] Telephone encounter Note * Telephone Encounter - Brandi Childers APRN.CNP - 04/22/2023 10:11 AM EDT The following approved medication requests have been transmitted electronically. Requested Prescriptions Pending Prescriptions Disp Refills LORazepam (ATIVAN) 0.5 mg 90 tablet 2 Sig: Take 1 tablet by mouth as needed (Anxiety) for up to 30 days. Brandi Childers APRN.CNP PDMP website checked and validated. All prescriptions have been APPROPRIATELY filled. No suspiciousactivity was identified. 04/22/2023 by Brandi Childers APRN.CNP [facility] Miscellaneous Notes* Telephone Encounter - Brandi Childers APRN.CNP - 04/22/2023 10:11 AM EDT The following approved medication requests have been transmitted electronically. Requested Prescriptions Pending Prescriptions Disp Refills LORazepam (ATIVAN) 0.5 mg 90 tablet 2 Sig: Take 1 tablet by mouth as needed (Anxiety) for up to 30 days. Brandi Childers APRN.CNP PDMP website checked and validated. All prescriptions have been APPROPRIATELY filled. No suspiciousactivity was identified. 04/22/2023 by Brandi Childers APRN.CNP * Telephone Encounter - Jazmyne Vincent - 04/22/2023 8:19 AM EDT Patient has been identified by name and date of : Yes Last office visit in this department: 01/29/2023 Labs-04/21/23Jun-05/15/23 RX INSTRUCTIONS: Patient aware RX will be sent to pharmacy. No need to notify patient. Patient phones requesting refills as follows: Requested Prescriptions Pending Prescriptions Disp Refills LORazepam (ATIVAN) 0.5 mg Sig: Take by mouth. Please review and advise. Jazmyne Vincent [facility] Telephone encounter Note * Telephone Encounter - Jazmyne Vincent - 04/22/2023 8:19 AM EDT Patient has been identified by name and date of : Yes Last office visit in this department: 01/29/2023 Labs-04/21/23Jun-05/15/23 RX INSTRUCTIONS: Patient aware RX will be sent to pharmacy. No need to notify patient. Patient phones requesting refills as follows: Requested Prescriptions Pending Prescriptions Disp Refills LORazepam (ATIVAN) 0.5 mg Sig: Take by mouth. Please review and advise. Jazmyne Vincent [facility] Miscellaneous Notes* Telephone Encounter - Makeda Denis APRN.CNP - 04/03/2023 10:01 AM EDT Urine culture reveals bacterial growth. >=100,000 CFU/ml Escherichia coli Abnormal Speak with patient. Still remains with symptoms +dysuria +frequency RX Macrobid to pharmacy Verbalizes understanding. documented in this encounterSt. [facility]08-16-[facility]23 History of Present illness Narrative* Massiel Reeder APRN.CNP - 04/01/2023 10:44 AM EDT Subjective The history is provided by the patient. No varsity baseball coach was used. HPI Maya Blanchard is a 72 year old female who presents today for CC of lower abdominal pressure and frequency of urination. Patient is also having vaginal burning. She has a fluconazole sent into the pharmacy, but is on back order. She is currently not on anything for her diabetes, or blood pressure. She denies chest pain or headache. BP 160/86 Pulse 95 Temp 37 C (98.6 F) Resp 20 Wt 92 kg (202 lb 12.8 oz) SpO2 95% BMI 35.92 kg/m BP recheck 168/80 Social History Tobacco Use Smoking status: Never Smokeless tobacco: Never Vaping Use Vaping Use: Never used Substance Use Topics Alcohol use: Yes Comment: Selom Drug use: No PAST MEDICAL HISTORY Diagnosis Date Anxiety Chronic rhinitis deviated septum Diabetes mellitus type II, uncontrolled Esophageal reflux Moderate cervical dysplasia Other abnormal glucose Other and unspecified hyperlipidemia PMH - PAST MEDICAL HISTORY OF adopted I have confirmed and edited as necessary, the [facility] Review of Systems Constitutional: Negative for chills and fever. Gastrointestinal: Negative for abdominal pain. Genitourinary: Positive for flank pain and frequency. Negative for dysuria, hematuria and urgency. Vaginal discharge, burning and itching Objective Physical Exam Vitals and nursing note reviewed. Constitutional: Appearance: Normal appearance. HENT: Head: Normocephalic and atraumatic. Abdominal: General: Bowel sounds are normal. There is no abdominal bruit. Palpations: Abdomen is not rigid. There is no mass or pulsatile mass. Tenderness: There is no abdominal tenderness. There is no guarding or rebound. Negative signs include Harmon's sign and McBurney's sign. Skin: General: Skin is warm and dry. Neurological: Mental Status: She is alert and oriented to person, place, and time. Psychiatric: Mood and Affect: Affect normal. ASSESSMENT/PLAN: 1. Burning with urination - ICD9: 788.1, ICD10: R30.0 (primary diagnosis) Urine dip negative, will send culture due to high BS levels + yeast infection, waiting on fluconazole. Sent clotrimazole to pharmacy to use vaginally - UA DIP, URINE (POC) - URINE CULTURE 2. Glucosuria - ICD9: 791.5, ICD10: R81 Probable elevated BS, last hgbA1C is 12.2, patient is not on any medications Patient set up for visit this week to address 3. Elevated blood pressure reading without diagnosis of hypertension - ICD9: 796.2, ICD10: R03.0 - Patient set up for visit this week to address Diagnosis and treatment plan were discussed and questions were answered to the patient's satisfaction. Pt acknowledged understanding of concepts and follow up plan. Specific signs and symptoms that would indicate the need for higher level of care were discussed indetail warranting prompt ER evaluation. Massiel Reeder APRN.NICK documented in this encounterSt. [facility]08-15-2023 Miscellaneous Notes* Telephone Encounter - Janet Little MD - 03/31/2023 11:53 AM EDT OK to refill as ordered Janet Little MD * Telephone Encounter - Elle Mark - 03/31/2023 8:39 AM EDT Patient is calling requesting fluconazole called into [facility] [place] , her symptoms are itching and burning for the last week. documented in this encounterSt. [facility]06-15-2023 History of Present illness Narrative* Janet Little MD - 01/29/2023 9:00 AM EDT Chief Complaint Patient presents with: F/U 3 Month HPI Maya Blanchard is a 72 year old female who presents here today for a 3 month follow up. Pt here today, with her spouse for a 3 month follow up. Will be going to [place] in March to a [employer]. Urinary - Stopped into office on 01/22/23 with c/o of UTI symptoms. Was seen in [facility] with urine dip completed showing moderate blood, 500 glucose, 15 ketones, 30 protein and small leuks. Pt urine sent out for Cx. Pt treated with Macrobid 100 mg bid. She's completed her abx and symptoms have resolved, may have some residual pressure but doing much better. JACLYN/Depression - Chronic. Does some Counseling. Has been dx with PTSD. Overall emotionally feels that she's better then she has been and the Counseling has been helpful. On current regimen of Ativan 1 mg TID, only medication that pt has seemed to tolerate. DM - Checking sugars daily with FBS ranging from 240-360. Denies having any symptoms of low blood sugars. Notes numbness and pain in b/l feet L>R. Feels her sugars are related to her stress level.Have tried Trulicity but did not tolerate medication. Pt on no current medication and DM is uncontrolled. Has not tolerated any medication. Last A1c was 11.8, most recent A1c is 12.2. Has eye exams done through Dr. Noland in [place] on 03/18/23. HTN - Denies checking her BP at home or having chest pain, sob or dizziness. Pt has uncontrolled blood pressure. She refuses to take medications, due to not tolerating. Lipids/TIA - Hx of 2 TIA. Unable to tolerate statin medications. States she does try to eat pretty well at home. Rides a stationary bike one mile daily. 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 Denies any pain at the area.States it's been there for years, with no change. Having troubles walking long distance. States her calves cramp up. She becomes sore and tires out with walking any long distances. States this is frustrating. - Declines Covid vaccines. Declines Tdap. Has Living Will. Has Mammograms through [facility]. Declines Pneumo vaccine. Past medical history, appointments, medications, allergies reviewed. Previous Medical History PAST MEDICAL HISTORY Diagnosis Date Anxiety Chronic rhinitis deviated septum Diabetes mellitus type II, uncontrolled Esophageal reflux Moderate cervical dysplasia Other abnormal glucose Other and unspecified hyperlipidemia PMH - PAST MEDICAL HISTORY OF adopted Previous Surgical History PAST SURGICAL HISTORY Procedure Laterality Date CHOLECYSTECTOMY Cholecystectomy COLONOSCOPY FLX DX W/COLLJ SPEC WHEN PFRMD 11/30/98 Per repeat in EGD 11/30/98 Colonoscopy done at same time VAGINAL HYSTERECTOMY UTERUS 250 GM/< 1975 due to precancerous cells - not cancer Family History FAMILY HISTORY Adopted: Yes Patient Allergies ALLERGIES Allergen Reactions Benadryl [Diphenhyd* Caffeine Mental Status Change Compazine [Prochlor* Imipramine Mental Status Change Tcn [Tetracyclines] GI Upset Trulicity [Dulaglut* Mental Status Change Current Medications Current Outpatient Medications on File Prior to Visit Medication Sig nitrofurantoin monohydrate and macrocrystal (MACROBID) 100 mg capsule Take 1 capsule by mouth twicedaily for 5 days. LORazepam (ATIVAN) 1 mg tablet take 1 tablet by mouth three times a day if needed for anxiety clobetasol (TEMOVATE) 0.05 % cream Apply to affected area twice daily. LORazepam (ATIVAN) 1 mg tablet Take 1 tablet by mouth three times daily as needed for anxiety for up to 90 days. dulaglutide (TRULICITY) 0.75 mg/0.5 mL pen injector Inject 0.75 mg subcutaneously one time a week. Inject dose once per week. Discard Pen After Current Facility-Administered Medications on File Prior to Visit Medication perflutren lipid microspheres 1.3 mL in NaCl (PF) 0.9% 10 mL injection (DEFINITY) sodium chloride 0.9 % (flush) 10 mL (BD POSIFLUSH) Social History Social History Tobacco Use Smoking status: Never Smokeless tobacco: Never Vaping Use Vaping Use: Never used Substance Use Topics Alcohol use: Yes Comment: Selom Drug use: No EXAM: BP 146/90 Pulse 84 Resp 16 Wt 89.8 kg (198 lb) BMI 35.07 kg/m General Appearance: Well appearing, alert, in no acute distress, well-hydrated, well nourished and Obese. Skin: Lipoma noted on right upper thigh/leg area. Lungs: Lungs clear to auscultation. No wheezing, rhonchi, rales.. Heart: RRR without murmur, gallop, or rubs. No ectopy. Feet: Shoes and socks removed, No deformities, ulcers, calluses, normal distal pulses, and sensitive to 10 gm monofilament Extremities: Nothing felt on exam for b/l lower leg cramping. Health Maintenance List COVID-19 VACCINE(1) Never done - Declines PNEUMOCOCCAL: 65+(1 - PCV) Never done - Declines BP CONTROLLED (<130/80) Never done DTAP,TDAP,TD(1 - Tdap) Never done - Declines SHINGRIX VACCINE(1 of 2) Never done DILATED RETINAL EXAM due on 09/23/2019 - Scheduled for 03/18 MAMMOGRAM due on 06/04/2022 - Receives through [facility] AD[facility]ANCE DIRECTIVE DISCUSSION Never done - Has living will HBA1C due on 01/05/2023 DIABETIC FOOT EXAM due on 01/15/2023 - Completed INFLUENZA(Season Ended) due on 04/17/2023 URINE ALBUMIN:CREATININE RATIO due on 10/08/2023 LDL CHOLESTEROL due on 10/08/2023 ANNUAL PCP TEAM CHRONIC DISEASE VISIT due on 10/22/2023 COLORECTAL CANCER SCREENING due on 01/02/2030 BONE DENSITY Completed HEPATITIS C SCREENING Completed Data reviewed Office Visit on 01/22/2023 Component Date Value GLUCOSE UA (POCT) 01/22/2023 500 (A) BILIRUBIN UA (POCT) 01/22/2023 Negative KETONE UA (POCT) 01/22/2023 15 (A) SPECIFIC GRAVITY UA (POC* 01/22/2023 >=1.030 HEMOGLOBIN/BLOOD UA (PO* 01/22/2023 Moderate (A) PH UA (POCT) 01/22/2023 5.0 PROTEIN UA (POCT) 01/22/2023 30 (A) UROBILINOGEN UA (POCT) 01/22/2023 0.2 NITRITE UA (POCT) 01/22/2023 Negative LEUKOCYTES UA (POCT) 01/22/2023 Small (A) COLOR UA (POCT) 01/22/2023 Yellow CLARITY UA (POCT) 01/22/2023 Slightly Cloudy Culture, Urine 01/22/2023 >=100,000 CFU/ml Escherichia coli (A) Glucose, Point of Care 01/22/2023 282 (A) Appointment on 01/22/2023 Component Date Value Glucose 01/22/2023 310 (A) BUN 01/22/2023 14 Creatinine 01/22/2023 0.61 Sodium 01/22/2023 135 (A) Potassium 01/22/2023 4.3 Chloride 01/22/2023 97 CO2 01/22/2023 25 Anion Gap 01/22/2023 13 Calcium, Total 01/22/2023 9.3 Estimated Glomerular Manohar* 01/22/2023 96 Hemoglobin A1C 01/22/2023 12.2 (A) Estimated Average Glucose 01/22/2023 303 ASSESSMENT/PLAN: 1. Type 2 diabetes mellitus with diabetic neuropathy, without long-term current use of insulin (HCC) - ICD9: 250.60, 357.2, ICD10: E11.40 (primary diagnosis) - Uncontrolled; not able to tolerate medications - Counseled on healthy diet and regular exercise 2. Anxiety and depression - ICD9: 300.00, 311, ICD10: F41.9, F32.A - Stable on current regimen - Continue current medication regimen. 3. Essential hypertension - ICD9: 401.9, ICD10: I10 - Stable - Recommend home blood pressure monitoring, to bring results to next visit - Encouraged sodium restriction, DASH or Mediterranean diet - Recommend regular aerobic exercise 4. Mixed hyperlipidemia - ICD9: 272.2, ICD10: E78.2 - Stable - Cont watching diet and exercise as able 5. Arterial ischemic stroke, MCA (middle cerebral artery), left, acute (HCC) - ICD9: 434.91, ICD10:I63.512 - Stable - Cont to watch diet and exercise 7. Leg cramping - ICD9: 729.82, ICD10: R25.2 - Possibly related to uncontrolled DM. - Discussed using heat and stretching. 3 mo f/u with labs. I agree with the Chief Complaint, ROS, and Past Histories independently gathered by the clinical ict support and test engineers and the remaining scribed note accurately describes my personal service to the patient. Medical Decision Making: Problems: Moderate: 2+ stable chronic illnesses Data: Unique test result(s) reviewed: 3+ Unique test(s) ordered: 3+ Risk: Moderate: Drug management Medical Decision Making Level: 4 - Moderate Janet Little MD The documentation for this note was completed by Krysta Oliva Ma acting as scribe for Janet Little MD. January 29, 2023 8:51 AM. Krysta Oliva Ma documented in this encounterSt. [facility]06-[facility]-2023 Miscellaneous Notes* Telephone Encounter - Marcelina Rodrigues MA - 01/25/2023 9:07 AM EDT Patient notified of results, verbalized understanding of instructions given. Marcelina Rodrigues MA * Telephone Encounter - Natacha Jackson APRN.NICK - 01/25/2023 8:11 AM EDT Patient is on the correct antibiotic please make sure symptoms are Improving thank you if not see PCP documented in this encounterSt. [facility]06-08-2023 History of Present illness Narrative* Makeda Denis APRN.NICK - 01/22/2023 10:06 AM EDT This note was created using ITDatabaseriter. Subjective Maya Blanchard is a 72 year old female. 72 year old female with PMH DM, hyperlipidemia, HTN, and anxiety presents with complaints of possible UTI. Acute onset 3 days ago +burning +frequency Denies fever or chills Denies abdominal pain. Denies flank pain. Denies skin rash or lesions. Denies vaginal bleeding. Denies vaginal discharge Recently sexually active. Denies using homeopathic or OTC medications. The history is provided by the patient. No varsity baseball coach was used. UTI This is a new problem. The current episode started more than 2 days ago. The problem occurs every urination. The problem has been gradually worsening. The quality of the pain is described as burning.The pain is at a severity of 5/10. The pain is moderate. There has been no fever. She is Sexually active. There is No history of pyelonephritis. Associated symptoms include frequency. Pertinent negatives include no chills, no sweats, no nausea, no vomiting, no discharge, no hematuria, no hesitancy,no possible , no urgency and no flank pain. She has tried nothing for the symptoms. Her past medical history does not include kidney stones, single kidney, urological procedure, recurrent UTIs, urinary stasis or catheterization. PAST MEDICAL HISTORY Diagnosis Date Anxiety Chronic rhinitis deviated septum Diabetes mellitus type II, uncontrolled Esophageal reflux Moderate cervical dysplasia Other abnormal glucose Other and unspecified hyperlipidemia PMH - PAST MEDICAL HISTORY OF adopted PAST SURGICAL HISTORY Procedure Laterality Date CHOLECYSTECTOMY Cholecystectomy COLONOSCOPY FLX DX W/COLLJ SPEC WHEN PFRMD 11/30/98 Per repeat in EGD 11/30/98 Colonoscopy done at same time VAGINAL HYSTERECTOMY UTERUS 250 GM/< 1975 due to precancerous cells - not cancer ALLERGIES Benadryl [Diphenhydramine Hcl], Caffeine, Compazine [Prochlorperazine Edisylate], Imipramine, Tcn [Tetracyclines], and Trulicity [Dulaglutide] MEDICATIONS LORazepam (ATIVAN) 1 mg tablet^take 1 tablet by mouth three times a day if needed for anxiety^Disp:90 tablet^Rfl: 2 clobetasol (TEMOVATE) 0.05 % cream^Apply to affected area twice daily.^Disp: 15 g^Rfl: 2 LORazepam (ATIVAN) 1 mg tablet^Take 1 tablet by mouth three times daily as needed for anxiety for up to 90 days.^Disp: 90 tablet^Rfl: 2 dulaglutide (TRULICITY) 0.75 mg/0.5 mL pen injector^Inject 0.75 mg subcutaneously one time a week. Inject dose once per week. Discard Pen After^Disp: 2 mL^Rfl: 5 nitrofurantoin monohydrate and macrocrystal (MACROBID) 100 mg capsule^Take 1 capsule by mouth twicedaily for 5 days.^Disp: 10 capsule^Rfl: 0 FAMILY HISTORY Adopted: Yes Social History Tobacco Use Smoking status: Never Smokeless tobacco: Never Vaping Use Vaping Use: Never used Substance Use Topics Alcohol use: Yes Comment: Selom Drug use: No Review of Systems Constitutional: Negative for chills and fatigue. Eyes: Negative for pain, discharge and redness. Respiratory: Negative for apnea, cough, choking, chest tightness and shortness of breath. Cardiovascular: Negative for chest pain, palpitations and leg swelling. Gastrointestinal: Negative for abdominal pain, nausea and vomiting. Genitourinary: Positive for dysuria and frequency. Negative for flank pain, hematuria, hesitancy and urgency. Musculoskeletal: Negative for back pain. Skin: Negative for color change, pallor, rash and wound. Allergic/Immunologic: Negative for environmental allergies, food allergies and immunocompromised state. Neurological: Negative for dizziness, facial asymmetry and headaches. Hematological: Negative for adenopathy. Does not bruise/bleed easily. Psychiatric/Behavioral: Negative for agitation and behavioral problems. Objective BP 146/84 Pulse 90 Temp 36.9 C (98.4 F) (Tympanic) Resp 18 Wt 90.4 kg (199 lb 3.2 oz) SpO2 96% BMI 35.29 kg/m Physical Exam Vitals and nursing note reviewed. Constitutional: General: She is not in acute distress. Appearance: Normal appearance. She is normal weight. She is not ill-appearing, toxic-appearing or diaphoretic. HENT: Head: Normocephalic and atraumatic. Right Ear: Ear canal and external ear normal. Left Ear: Ear canal and external ear normal. Nose: Nose normal. No congestion or rhinorrhea. Mouth/Throat: Mouth: Mucous membranes are moist. Pharynx: No oropharyngeal exudate or posterior oropharyngeal erythema. Eyes: General: Right eye: No discharge. Left eye: No discharge. Extraocular Movements: Extraocular movements intact. Conjunctiva/sclera: Conjunctivae normal. Pupils: Pupils are equal, round, and reactive to light. Cardiovascular: Rate and Rhythm: Normal rate and regular rhythm. Pulses: Normal pulses. Heart sounds: Normal heart sounds. No murmur heard. No friction rub. Pulmonary: Effort: Pulmonary effort is normal. No respiratory distress. Breath sounds: Normal breath sounds. No stridor. No wheezing, rhonchi or rales. Chest: Chest wall: No tenderness. Abdominal: General: Abdomen is flat. There is no distension. Palpations: Abdomen is soft. There is no mass. Tenderness: There is no abdominal tenderness. There is no right CVA tenderness, left CVA tenderness, guarding or rebound. Hernia: No hernia is present. Musculoskeletal: General: No swelling, tenderness, deformity or signs of injury. Normal range of motion. Cervical back: Normal range of motion and neck supple. No rigidity. Right lower leg: No edema. Left lower leg: No edema. Lymphadenopathy: Cervical: No cervical adenopathy. Skin: General: Skin is warm and dry. Capillary Refill: Capillary refill takes less than 2 seconds. Coloration: Skin is not jaundiced or pale. Findings: No bruising, erythema, lesion or rash. Neurological: General: No focal deficit present. Mental Status: She is alert and oriented to person, place, and time. Cranial Nerves: No cranial nerve deficit. Sensory: No sensory deficit. Motor: No weakness. Coordination: Coordination normal. Gait: Gait normal. Psychiatric: Mood and Affect: Mood normal. Behavior: Behavior normal. Thought Content: Thought content normal. Judgment: Judgment normal. Assessment and Plan ASSESSMENT/PLAN: 1. Dysuria - ICD9: 788.1, ICD10: R30.0 (primary diagnosis) acute - UA positive for valentin esterase, hematuria, proteinuria, and glucose - Send urine for culture - Begin treatment with Macrobid 100 mg BID for 7 days - Patient education for prevention given - UA DIP, URINE (POC) - URINE CULTURE - NITROFURANTOIN MONOHYDRATE & MACROCRYSTAL 100 MG ORAL CAP - GLUCOSE, BLOOD (POC) 2. Glucosuria - ICD9: 791.5, ICD10: R81 Endorses that she checked her sugar this morning and was 280 She endorses that she has had bouts of carbs Discussed with patient the need for tighter control She has appt next week with DR. Franki levi - GLUCOSE, BLOOD (POC) Makeda Denis APRN.TELEPHONE REPAIRER documented in this encounterSt. [facility]06-08-2023 Miscellaneous Notes* Telephone Encounter - Krysta Oliva Ma - 01/22/2023 9:41 AM EDT Pt having urinary frequency, burning, pressure x 3 days. Is being treated currently for vaginal yeast infection. Pt stopped in asking to do urine culture at lab. Advised pt that PCP would not be in tomorrow and that we might not get results till tomorrow. She didn't want to wait. Advised pt to go to to be seen and they could check a urine at visit and if antibiotics were needed she could be started on them. Pt agreed. Krysta Oliva Ma documented in this encounterSt. [facility] Hospital06-01-2023 Miscellaneous Notes* Telephone Encounter - Janet Little MD - 01/15/2023 11:48 AM EDT OK for diflucan as ordered Janet Little MD * Telephone Encounter - Alla Curtis - 01/15/2023 8:41 AM EDT Patient called to refill Diflucan; not on current med list. Uses [facility] in [place]. documented in this encounterSt. [facility] Hospital04-10-2023 Miscellaneous Notes* Telephone Encounter - Reno Moore APRN.CNP - 11/24/2022 9:23 AM EDT Approved. [facility] website checked and validated. All prescriptions have been APPROPRIATELY filled. No suspiciousactivity was identified. 11/24/2022 by Reno Moore APRN.CNP The following approved medication requests have been transmitted electronically. Requested Prescriptions Signed Prescriptions Disp Refills clobetasol (TEMOVATE) 0.05 % cream 15 g 2 Sig: Apply to affected area twice daily. Authorizing Provider: RENO MOORE LORazepam (ATIVAN) 1 mg tablet 90 tablet 0 Sig: Take 1 tablet by mouth three times daily as needed for anxiety for up to 30 days. Authorizing Provider: RENO MOORE APRN.CNP * Telephone Encounter - Alla Oneil LPN - 11/24/2022 9:04 AM EDT Patient has been identified by name and date of : Patient phones for refill(s): Requested Prescriptions Pending Prescriptions Disp Refills clobetasol (TEMOVATE) 0.05 % cream 15 g 2 Sig: Apply to affected area twice daily. LORazepam (ATIVAN) 1 mg tablet 90 tablet 2 Sig: Take 1 tablet by mouth three times daily as needed for anxiety for up to 90 days. Date of last office visit in primary care: 10/21/22 Last 2 Encounter Wt Readings: Date: Wt: 10/21/2022 88.5 kg (195 lb) 07/21/2022 89.6 kg (197 lb 8 oz) Previous labs/tests for medication: Not applicable Please advise. Thank you. Alla Oneil LPN documented in this encounterSt. [facility] Hospital03-07-2023 History of Present illness Narrative* Janet Little MD - 10/21/2022 9:20 AM EST Chief Complaint No chief complaint on file. HPI Maya Blanchard is a 72 year old female who presents here today for 3 month follow up. DM: Was started on Trulicity last time, but did not tolerate due to side effects. Denies checking BS at home, no hypoglycemic episodes, no neuropathy sx. Lipid/HTN: Not taking any medications. Does not check BP at home. Depression/JACLYN: Stable with Ativan 1 mg 1 pill TID prn. Is doing some counseling. Stress has improved, they are now speaking with their son, and expecting a great grand child in Apr. Past medical history, appointments, medications, allergies reviewed. Previous Medical History PAST MEDICAL HISTORY Diagnosis Date Anxiety Chronic rhinitis deviated septum Diabetes mellitus type II, uncontrolled Esophageal reflux Moderate cervical dysplasia Other abnormal glucose Other and unspecified hyperlipidemia PMH - PAST MEDICAL HISTORY OF adopted Previous Surgical History PAST SURGICAL HISTORY Procedure Laterality Date CHOLECYSTECTOMY Cholecystectomy COLONOSCOPY FLX DX W/COLLJ SPEC WHEN PFRMD 11/30/98 Per repeat in EGD 11/30/98 Colonoscopy done at same time VAGINAL HYSTERECTOMY UTERUS 250 GM/< 1975 due to precancerous cells - not cancer Family History FAMILY HISTORY Adopted: Yes Patient Allergies ALLERGIES Allergen Reactions Benadryl [Diphenhyd* Caffeine Mental Status Change Compazine [Prochlor* Imipramine Mental Status Change Tcn [Tetracyclines] GI Upset Current Medications Current Outpatient Medications on File Prior to Visit Medication Sig dulaglutide (TRULICITY) 0.75 mg/0.5 mL pen injector Inject 0.75 mg subcutaneously one time a week. Inject dose once per week. Discard Pen After LORazepam (ATIVAN) 1 mg tablet Take 1 tablet by mouth three times daily as needed for anxiety for up to 90 days. clobetasol (TEMOVATE) 0.05 % cream Apply to affected area twice daily. Current Facility-Administered Medications on File Prior to Visit Medication perflutren lipid microspheres 1.3 mL in NaCl (PF) 0.9% 10 mL injection (DEFINITY) sodium chloride 0.9 % (flush) 10 mL (BD POSIFLUSH) Social History Social History Tobacco Use Smoking status: Never Smokeless tobacco: Never Vaping Use Vaping Use: Never used Substance Use Topics Alcohol use: Yes Comment: Selom Drug use: No EXAM: There were no vitals taken for this visit. General Appearance: Well appearing, alert, in no acute distress, well-hydrated, well nourished.. Lungs: Lungs clear to auscultation. No wheezing, rhonchi, rales.. Heart: RRR without murmur, gallop, or rubs. No ectopy. Health Maintenance List COVID-19 VACCINE(1) Never done PNEUMOCOCCAL: 65+(1 - PCV) Never done BP CONTROLLED (<130/80) Never done DTAP,TDAP,TD(1 - Tdap) Never done SHINGRIX VACCINE(1 of 2) Never done DILATED RETINAL EXAM due on 09/23/2019 INFLUENZA(1) due on 04/17/2022 MAMMOGRAM due on 06/04/2022 ADVANCE DIRECTIVE DISCUSSION Never done HBA1C due on 01/05/2023 DIABETIC FOOT EXAM due on 01/15/2023 ANNUAL PCP TEAM CHRONIC DISEASE VISIT due on 07/21/2023 URINE ALBUMIN:CREATININE RATIO due on 10/08/2023 LDL CHOLESTEROL due on 10/08/2023 COLORECTAL CANCER SCREENING due on 01/02/2030 BONE DENSITY Completed HEPATITIS C SCREENING Completed Data reviewed Appointment on 10/08/2022 Component Date Value Protein, Total 10/08/2022 7.9 Albumin 10/08/2022 3.9 Calcium, Total 10/08/2022 9.5 Bilirubin, Total 10/08/2022 0.9 Alkaline Phosphatase 10/08/2022 96 AST 10/08/2022 20 ALT 10/08/2022 19 Glucose 10/08/2022 285 (A) BUN 10/08/2022 15 Creatinine 10/08/2022 0.64 Sodium 10/08/2022 135 (A) Potassium 10/08/2022 4.6 Chloride 10/08/2022 97 CO2 10/08/2022 28 Anion Gap 10/08/2022 10 Estimated Glomerular Manohar* 10/08/2022 95 Hemoglobin A1C 10/08/2022 11.8 (A) Estimated Average Glucose 10/08/2022 292 Cholesterol, Total 10/08/2022 222 (A) Triglyceride 10/08/2022 190 (A) HDL Cholesterol 10/08/2022 57 Non HDL Cholesterol 10/08/2022 165 (A) Fasting Time 10/08/2022 12 VLDL Cholesterol 10/08/2022 38 (A) TC:HDL Ratio 10/08/2022 3.89 LDL Cholesterol 10/08/2022 127 (A) LDL:HDL Ratio 10/08/2022 2.23 WBC 10/08/2022 11.90 (A) RBC 10/08/2022 5.30 (A) Hemoglobin 10/08/2022 15.9 (A) Hematocrit 10/08/2022 47.0 (A) MCV 10/08/2022 88.7 MCH 10/08/2022 30.0 MCHC 10/08/2022 33.8 RDW-CV 10/08/2022 13.3 Platelet Count 10/08/2022 274 MPV 10/08/2022 11.4 NRBC 10/08/2022 0.0 Absolute nRBC 10/08/2022 <0.01 Neutrophils % 10/08/2022 41.0 Abs Neut (Segs + Bands) 10/08/2022 4.88 Lymphocytes % 10/08/2022 53.0 Abs Lymph (Normal + Reac* 10/08/2022 6.31 (A) Monocytes % 10/08/2022 5.0 Abs [facility] 10/08/2022 0.60 Eosin% 10/08/2022 0.0 Abs Eosin 10/08/2022 0.00 Basophils % 10/08/2022 1.0 Abs Baso 10/08/2022 0.12 (A) Platelet Estimate 10/08/2022 Adequate Red Cell Morph 10/08/2022 Reviewed: unremarkable Diff Type 10/08/2022 Manual Creatinine, Ur Random (U* 10/08/2022 173.4 Albumin, Urine Random 10/08/2022 121.1 Albumin/Creat Ratio 10/08/2022 70 (A) Reviewed 10/08/2022 MD JOSE LUIS ASSESSMENT/PLAN: 1. Type 2 diabetes mellitus without complication, without long-term current use of insulin (HCC) - ICD9: 250.00, ICD10: E11.9 (primary diagnosis) - Uncontrolled Has not been able to tolerate any medications; continue to work on lifestyle - BASIC METABOLIC PNL - HGB A1C 2. Anxiety and depression - ICD9: 300.00, 311, ICD10: F41.9, F32.A Continue current medications. 3. Essential hypertension - ICD9: 401.9, ICD10: I10 - good control - Recommended regular aerobic exercise. - Recommend home blood pressure monitoring, to bring results in on next visit - Goal of BP <140/90 4. Mixed hyperlipidemia - ICD9: 272.2, ICD10: E78.2 - Continue lifestyle Follow up in 3 months Medical Decision Making: Problems: Moderate: 2+ stable chronic illnesses Data: Unique test result(s) reviewed: 3+ Unique test(s) ordered: 2 Risk: Moderate: Drug management Medical Decision Making Level: 4 - Moderate Janet Little MD documented in this encounterSt. [facility]03-[facility]23 Miscellaneous Notes* Telephone Encounter - Reno Moore APRN.CNP - 10/17/2022 11:42 AM EST Approved. PDMP website checked and validated. All prescriptions have been APPROPRIATELY filled. No suspiciousactivity was identified. 10/17/2022 by Reno Moore APRN.CNP The following approved medication requests have been transmitted electronically. Requested Prescriptions Signed Prescriptions Disp Refills LORazepam (ATIVAN) 1 mg tablet 90 tablet 2 Sig: Take 1 tablet by mouth three times daily as needed for anxiety for up to 90 days. Authorizing Provider: RENO MOORE APRN.CNP * Telephone Encounter - Sultana Curtis - 10/17/2022 9:21 AM EST Pharmacy verified in [facility] Patient has been identified by name and date of : Yes Patient aware RX will be sent to pharmacy. No need to notify patient. Patient phones for refill(s): Requested Prescriptions Pending Prescriptions Disp Refills LORazepam (ATIVAN) 1 mg tablet 90 tablet 2 Sig: Take 1 tablet by mouth three times daily as needed for anxiety for up to 90 days. Date of last office visit : 07/21/2022 Labs-10/08/22 Date of next office visit : 10/21/2022 Last 2 Encounter Wt Readings: Date: Wt: 07/21/2022 89.6 kg (197 lb 8 oz) 07/13/2022 90.3 kg (199 lb) Please advise. Sultana Tillman Pss documented in this encounterSt. [facility]02-17-[facility]23 History of Present illness Narrative* Ally Vickers MA - 10/03/2022 1:54 PM EST POPULATION HEALTH NAVIGATION OUTREACH Action/FYI LM for pt to call to schedule mammogram ,diabetic retinal eye exam, influenza. [id number] order is in system, notes added to upcoming ov to address hcc gaps Patient Identified by Name and : NO Outreach Outcome/Action Unable to reach patient: Left message FloTimet message sent Did you use a PCP flex slot to schedule this appointment? N/A Reason for Outreach Care Gap or Scheduling/Wellness visits Payer: Payor: [employer] MEDICARE / Plan: [employer] MEDICARE PPO / Product Type: PPO / Care Gap Reviewed:: Breast Cancer screening Diabetic Eye Exam HBA1C Flu Vaccine Reminder: Reminder note to check Health Maintenance for items below Health Maintenance items due: COVID-19 VACCINE(1) Never done PNEUMOCOCCAL: 65+(1 - PCV) Never done BP CONTROLLED (<130/80) Never done DTAP,TDAP,TD(1 - Tdap) Never done SHINGRIX VACCINE(1 of 2) Never done DILATED RETINAL EXAM due on 09/23/2019 INFLUENZA(1) due on 04/17/2022 MAMMOGRAM due on 06/04/2022 ADVANCE DIRECTIVE DISCUSSION Never done HBA1C due on 09/25/2022 Navigation Signature: Ally Vickers MA October 03, 2022 1:54 PM documented in this encounterSt. [facility]12-19-2022 Miscellaneous Notes* Telephone Encounter - Santa Herrera Ma - 08/04/2022 5:05 PM EST Pt notified. * Telephone Encounter - Janet Little MD - 08/04/2022 4:59 PM EST OK to hold Trulicity and see if symptoms improve Janet Little MD * Telephone Encounter - Nani Garibay LPN - 08/04/2022 11:44 AM EST Kali, spouse called and pt was put on Trulicity 2 weeks ago and started with the following symptoms and they are not going away. *pain in abdomen around to back *dizzy '*light headed *headache *blurred vision *shaky *anxiety with mood changes *weakness *diarrhea *nausea without vomiting Pt has had 2 injections and the above symptoms all started when she took her 1st hot and not letting up. Medication is helping to keep her sugar level in the 100s sometimes will go up to 200. Please advise spouse. Nani Garibay LPN documented in this encounterSt. [facility]12-05-2022 History of Present illness Narrative* Janet Little MD - 07/21/2022 8:00 AM EST Chief Complaint Patient presents with: F/U 3 Month HPI Maya Blanchard is a 72 year old female who presents here today for 3 month follow up. No bowel, Gi, or urinary issues. Hx of UTI's. She still gets some stomach upset or pain that at times will go around into the back. will massage the back and she does some chiropractic tx which helps. She states that this triggers her to feel not well at times. She is still trying to figure out if it is diet related as well. HTN: Does not check BP at home, no chest pains, dizziness, or SOB. Does not take any BP medications; has not tolerated any medications. DM: Does check BS at home FBS 200-400, not taking any diabetes medications; has not been able to tolerate any meds. She is finding a pattern with her sugars, feels the sugars go up when stressed. Denies any neuropathy sx in feet. No hypoglycemic episode. Follows with [facility], Dr. Noland. Lipid: not taking any statins due to intolerance. Is using stationary bike, rides for a mile a few days a week. JACLYN/Depression: Chronic. She feels she is doing ok, states ok would be a good word for her. Is doing counseling with Marlin Calderon 2 x a month and feels this is helping her. She is writing better. Feels she is understanding how things affect her. She has been given techniques to try and deal with the anxiety. Dx with PTSD. Was taking Prozac 10 mg daily and Bupsar 5 mg BID but she stopped it due toside effects of nausea and upset stomach, only used it about a week. Is taking Ativan 1 mg, 1 pill TID which she thinks works the best for her, sometimes she can do with just BID. She still has stress with her daughter. They do go to their daughter's home in [place] often and have been watching their grand children play basketball and sports. Hx of 2 TIA. Past medical history, appointments, medications, allergies reviewed. Previous Medical History PAST MEDICAL HISTORY Diagnosis Date Anxiety Chronic rhinitis deviated septum Diabetes mellitus type II, uncontrolled Esophageal reflux Moderate cervical dysplasia Other abnormal glucose Other and unspecified hyperlipidemia PMH - PAST MEDICAL HISTORY OF adopted Previous Surgical History PAST SURGICAL HISTORY Procedure Laterality Date CHOLECYSTECTOMY Cholecystectomy COLONOSCOPY FLX DX W/COLLJ SPEC WHEN PFRMD 11/30/98 Per repeat in EGD 11/30/98 Colonoscopy done at same time VAGINAL HYSTERECTOMY UTERUS 250 GM/< 1975 due to precancerous cells - not cancer Family History FAMILY HISTORY Adopted: Yes Patient Allergies ALLERGIES Allergen Reactions Benadryl [Diphenhyd* Caffeine Mental Status Change Compazine [Prochlor* Imipramine Mental Status Change Tcn [Tetracyclines] GI Upset Current Medications Current Outpatient Medications on File Prior to Visit Medication Sig FLUoxetine (PROZAC) 10 mg capsule Take 1 capsule by mouth once daily. clobetasol (TEMOVATE) 0.05 % cream Apply to affected area twice daily. LORazepam (ATIVAN) 1 mg tablet Take 1 tablet by mouth three times daily as needed for anxiety for up to 90 days. busPIRone (BUSPAR) 5 mg tablet Take 1 tablet by mouth twice daily. Current Facility-Administered Medications on File Prior to Visit Medication perflutren lipid microspheres 1.3 mL in NaCl (PF) 0.9% 10 mL injection (DEFINITY) sodium chloride 0.9 % (flush) 10 mL (BD POSIFLUSH) Social History Social History Tobacco Use Smoking status: Never Smokeless tobacco: Never Vaping Use Vaping Use: Never used Substance Use Topics Alcohol use: Yes Comment: Selom Drug use: No EXAM: BP 142/82 Pulse 74 Resp 16 Wt 89.6 kg (197 lb 8 oz) BMI 35.55 kg/m General Appearance: Well appearing, alert, in no acute distress, well-hydrated, well nourished. andObese. Lungs: Lungs clear to auscultation. No wheezing, rhonchi, rales.. Heart: RRR without murmur, gallop, or rubs. No ectopy. Health Maintenance List COVID-19 VACCINE(1) Never done PNEUMOCOCCAL: 65+(1 - PCV) Never done BP CONTROLLED (<130/80) Never done DTAP,TDAP,TD(1 - Tdap) Never done SHINGRIX VACCINE(1 of 2) Never done DILATED RETINAL EXAM due on 09/23/2019 ADVANCE DIRECTIVE DISCUSSION Never done INFLUENZA(1) due on 04/17/2022 MAMMOGRAM due on 06/04/2022 HBA1C due on 09/25/2022 URINE ALBUMIN:CREATININE RATIO due on 11/27/2022 DIABETIC FOOT EXAM due on 01/15/2023 ANNUAL PCP TEAM CHRONIC DISEASE VISIT due on 04/17/2023 LDL CHOLESTEROL due on 06/25/2023 COLORECTAL CANCER SCREENING due on 01/02/2030 BONE DENSITY Completed HEPATITIS C SCREENING Completed Data reviewed Office Visit on 07/13/2022 Component Date Value GLUCOSE UA (POCT) 07/13/2022 >=1000 (A) BILIRUBIN UA (POCT) 07/13/2022 Small (A) KETONE UA (POCT) 07/13/2022 15 (A) SPECIFIC GRAVITY UA (POC* 07/13/2022 1.020 HEMOGLOBIN/BLOOD UA (PO* 07/13/2022 Large (A) PH UA (POCT) 07/13/2022 5.0 PROTEIN UA (POCT) 07/13/2022 100 (A) UROBILINOGEN UA (POCT) 07/13/2022 1.0 NITRITE UA (POCT) 07/13/2022 Positive (A) LEUKOCYTES UA (POCT) 07/13/2022 Trace (A) COLOR UA (POCT) 07/13/2022 Other CLARITY UA (POCT) 07/13/2022 Clear Culture, Urine 07/13/2022 <10,000 CFU/ml Lactose positive gram negative bacilli (A) Appointment on 06/25/2022 Component Date Value Protein, Total 06/25/2022 7.4 Albumin 06/25/2022 4.0 Calcium, Total 06/25/2022 9.5 Bilirubin, Total 06/25/2022 0.6 Alkaline Phosphatase 06/25/2022 94 AST 06/25/2022 26 ALT 06/25/2022 27 Glucose 06/25/2022 315 (A) BUN 06/25/2022 13 Creatinine 06/25/2022 0.58 Sodium 06/25/2022 134 (A) Potassium 06/25/2022 5.1 Chloride 06/25/2022 98 CO2 06/25/2022 24 Anion Gap 06/25/2022 12 Estimated Glomerular Manohar* 06/25/2022 97 Cholesterol, Total 06/25/2022 245 (A) Triglyceride 06/25/2022 165 (A) HDL Cholesterol 06/25/2022 45 Non HDL Cholesterol 06/25/2022 200 (A) Fasting Time 06/25/2022 14 VLDL Cholesterol 06/25/2022 33 (A) TC:HDL Ratio 06/25/2022 5.44 (A) LDL Cholesterol 06/25/2022 167 (A) LDL:HDL Ratio 06/25/2022 3.71 (A) Hemoglobin A1C 06/25/2022 12.6 (A) Estimated Average Glucose 06/25/2022 315 WBC 06/25/2022 11.11 (A) RBC 06/25/2022 5.37 (A) Hemoglobin 06/25/2022 15.7 (A) Hematocrit 06/25/2022 49.3 (A) MCV 06/25/2022 91.8 MCH 06/25/2022 29.2 MCHC 06/25/2022 31.8 RDW-CV 06/25/2022 13.0 Platelet Count 06/25/2022 254 MPV 06/25/2022 12.4 Absolute nRBC 06/25/2022 <0.01 ASSESSMENT/PLAN: 1. Anxiety and depression - ICD9: 300.00, 311, ICD10: F41.9, F32.A (primary diagnosis) Stop Prozac and Buspar Continue with Ativan 1 pill TID Continue with Counseling 2. Mixed hyperlipidemia - ICD9: 272.2, ICD10: E78.2 - poor control - Encouraged following a low fat, low cholesterol diet. - Discussed the benefits of regular aerobic exercise and weight loss. 3. Essential hypertension - ICD9: 401.9, ICD10: I10 - fair control - Recommended regular aerobic exercise. - Recommend home blood pressure monitoring, to bring results in on next visit - Goal of BP <140/90 4. Type 2 diabetes mellitus without complication, without long-term current use of insulin (HCC) - ICD9: 250.00, ICD10: E11.9 worsening control - Start Trulicity 0.75 mg weekly Continue to check BS at home 5. Arterial ischemic stroke, MCA (middle cerebral artery), left, acute (HCC) - ICD9: 434.91, ICD10:I63.512 Follow up in 3 months with fasting labs and urine test prior. I agree with the Chief Complaint, ROS, and Past Histories independently gathered by the clinical ict support and test engineers and the remaining scribed note accurately describes my personal service to the patient. Medical Decision Making: Problems: Moderate: 2+ stable chronic illnesses Data: Unique test(s) ordered: 3+ Risk: Moderate: Drug management Medical Decision Making Level: 4 - Moderate Janet Little MD The documentation for this note was completed by Santa Herrera Ma acting as scribe for Janet Little MD. July 21, 2022 8:09 AM. Santa Herrera Ma documented in this encounterSt. [facility]11-[facility] History of Present illness Narrative* Lisa Rodas PA-C - 07/13/2022 10:53 AM EST This note was created using NoteWriter. Subjective Maya Blanchard is a 72 year old female. HPI Patient presents with urinary frequency, burning and pelvic pressure over the past week. She has been taking Azo for 2 days. She does wear a pad which she thinks might be contributing to this. No diarrhea. No fever. Denies flank pain. No vomiting. She has had UTIs previously. Patient also has had some postnasal drip and sinus congestion for about a month. Denies severe headache or pressure in herface when she bends over. No OTC meds used. Denies cough or sore throat. Review of Systems Constitutional: Negative. HENT: Positive for congestion, postnasal drip and sinus pressure. Negative for ear pain, sinus painand sore throat. Respiratory: Negative for cough and shortness of breath. Cardiovascular: Negative. Gastrointestinal: Negative. Genitourinary: Positive for dysuria, frequency, pelvic pain, urgency and vaginal pain. Musculoskeletal: Positive for back pain. All other systems reviewed and are negative. PAST MEDICAL HISTORY Diagnosis Date Anxiety Chronic rhinitis deviated septum Diabetes mellitus type II, uncontrolled Esophageal reflux Moderate cervical dysplasia Other abnormal glucose Other and unspecified hyperlipidemia PMH - PAST MEDICAL HISTORY OF adopted Current Outpatient Medications Medication Sig Dispense Refill clobetasol (TEMOVATE) 0.05 % cream Apply to affected area twice daily. 15 g 2 LORazepam (ATIVAN) 1 mg tablet Take 1 tablet by mouth three times daily as needed for anxiety for up to 90 days. 90 tablet 2 cephALEXin (KEFLEX) 500 mg capsule Take 1 capsule by mouth twice daily for 7 days. 14 capsule 0 fluconazole (DIFLUCAN) 150 mg tablet Take 1 tablet by mouth one time only for 1 dose. Repeat in 3 days as needed. 2 tablet 0 FLUoxetine (PROZAC) 10 mg capsule Take 1 capsule by mouth once daily. (Patient not taking: Reportedon 07/13/2022) 30 capsule 5 busPIRone (BUSPAR) 5 mg tablet Take 1 tablet by mouth twice daily. (Patient not taking: Reported on07/13/2022) 60 tablet 2 Current Facility-Administered Medications Medication Dose Route Frequency Provider Last Rate Last Admin perflutren lipid microspheres 1.3 mL in NaCl (PF) 0.9% 10 mL injection (DEFINITY) INTRAVENOUS DIRECTED SAMARA Cleveland MD sodium chloride 0.9 % (flush) 10 mL (BD POSIFLUSH) 10 mL INTRAVENOUS DIRECTED PRN Chelsy Cleveland MD PAST SURGICAL HISTORY Procedure Laterality Date CHOLECYSTECTOMY Cholecystectomy COLONOSCOPY FLX DX W/COLLJ SPEC WHEN PFRMD 11/30/98 Per repeat in EGD 11/30/98 Colonoscopy done at same time VAGINAL HYSTERECTOMY UTERUS 250 GM/< 1975 due to precancerous cells - not cancer FAMILY HISTORY Adopted: Yes Social History Tobacco Use Smoking status: Never Smokeless tobacco: Never Vaping Use Vaping Use: Never used Substance Use Topics Alcohol use: Yes Comment: Selom Drug use: No Objective BP 146/80 Pulse 84 Temp 36.6 C (97.8 F) Resp 16 Wt 90.3 kg (199 lb) BMI 35.82 kg/m Physical Exam Vitals reviewed. Constitutional: Appearance: Normal appearance. HENT: Head: Normocephalic and atraumatic. Right Ear: Tympanic membrane, ear canal and external ear normal. Left Ear: Tympanic membrane, ear canal and external ear normal. Nose: Congestion present. Mouth/Throat: Mouth: Mucous membranes are moist. Pharynx: Oropharynx is clear. Cardiovascular: Rate and Rhythm: Normal rate and regular rhythm. Heart sounds: Normal heart sounds. Pulmonary: Effort: Pulmonary effort is normal. Breath sounds: Normal breath sounds. Abdominal: General: Abdomen is flat. Bowel sounds are normal. There is no distension. Palpations: Abdomen is soft. Tenderness: There is no abdominal tenderness. There is no right CVA tenderness, left CVA tendernessor guarding. Musculoskeletal: Cervical back: Neck supple. Skin: General: Skin is warm and dry. Findings: No rash. Neurological: Mental Status: She is alert. Assessment and Plan ASSESSMENT/PLAN: 1. Burning with urination - ICD9: 788.1, ICD10: R30.0 (primary diagnosis) Patient took Azo so dip unreliable. I will send for culture and start Keflex. - UA DIP, URINE (POC) - URINE CULTURE 2. Nasal congestion - ICD9: 478.19, ICD10: R09.81 Likely environmental or allergy related. Recommended trying Flonase and Zyrtec [id number]. Lisa Rodas PA-C documented in this encounterSt. [facility]09-[facility]22 History of Present illness Narrative* Janet Little MD - 04/17/2022 11:20 AM EDT Chief Complaint Patient presents with: F/U 3 Month HPI Maya Blanchard is a 71 year old female who presents here today for a 3 month follow up. Pt here today for a 3 month follow up. Hx of recurrent UTI's. Anxiety: Chronic anxiety and on extermination supervisor Ativan 1 mg, 1 pill BID every day and Buspar 5 mg BID prn. Pt has been encouraged to f/u with a Counselor. She has a counselor now who she has only seen twice so far. She was dx with PTSD, the validation has helped her as well. She has triggers, she states that it is all fear based, when she goes to her daughters or yarsani. 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 She states that her friend quoted scripture to her and told her that this is all fear, prayed for her and she stated the entire next day she felt fine and her BS were good, she didn't eat bad. She still has some issues with reading and writing things, has to pause and concentrate. HTN: Uncontrolled HTN, that pt declines to take medication. Does not check BP at home. DM: Uncontrolled DM that pt declines to take medication for. She states she has been checking BS athome, FBS 253-358. She has noticed a pattern in her BS readings based on her anxiety and the anxiety triggering her to eat unhealthy foods. She feels she craves those foods when she is anxious. She has a device where she can pedal while sitting. TIA: Hx of TIA x 2. She has to really concentrate on reading things and writing. She feels that is anxiety related. She has trouble walking at times, states her calves get tight and has pain in the lower back. Past medical history, appointments, medications, allergies reviewed. Previous Medical History PAST MEDICAL HISTORY Diagnosis Date Anxiety Chronic rhinitis deviated septum Diabetes mellitus type II, uncontrolled Esophageal reflux Moderate cervical dysplasia Other abnormal glucose Other and unspecified hyperlipidemia PMH - PAST MEDICAL HISTORY OF adopted Previous Surgical History PAST SURGICAL HISTORY Procedure Laterality Date CHOLECYSTECTOMY Cholecystectomy COLONOSCOPY FLX DX W/COLLJ SPEC WHEN PFRMD 11/30/98 Per repeat in EGD 11/30/98 Colonoscopy done at same time VAGINAL HYSTERECTOMY UTERUS 250 GM/< 1975 due to precancerous cells - not cancer Family History FAMILY HISTORY Adopted: Yes Patient Allergies ALLERGIES Allergen Reactions Benadryl [Diphenhyd* Caffeine Mental Status Change Compazine [Prochlor* Imipramine Mental Status Change Tcn [Tetracyclines] GI Upset Current Medications Current Outpatient Medications on File Prior to Visit Medication Sig LORazepam (ATIVAN) 1 mg tablet Take 1 tablet by mouth three times daily as needed for anxiety for up to 90 days. tiZANidine (ZANAFLEX) 2 mg tablet Take 1 tablet by mouth every 8 hours as needed (muscle spasms). oxybutynin XL (DITROPAN XL) 5 mg 24 hr tablet Take 1 tablet by mouth once daily. busPIRone (BUSPAR) 5 mg tablet Take 1 tablet by mouth twice daily. clobetasol (TEMOVATE) 0.05 % cream Apply to affected area twice daily. omeprazole (PRILOSEC) 20 mg capsule Take 1 capsule by mouth daily before breakfast. 1/2 hr before meal. Current Facility-Administered Medications on File Prior to Visit Medication perflutren lipid microspheres 1.3 mL in NaCl (PF) 0.9% 10 mL injection (DEFINITY) sodium chloride 0.9 % (flush) 10 mL (BD POSIFLUSH) Social History Social History Tobacco Use Smoking status: Never Smokeless tobacco: Never Vaping Use Vaping Use: Never used Substance Use Topics Alcohol use: Yes Comment: Selom Drug use: No EXAM: BP 180/80 Pulse 90 Resp 18 Wt 90.9 kg (200 lb 8 oz) BMI 36.09 kg/m General Appearance: Well appearing, alert, in no acute distress, well-hydrated, well nourished. andOverweight. Lungs: Lungs clear to auscultation. No wheezing, rhonchi, rales.. Heart: RRR without murmur, gallop, or rubs. No ectopy. Health Maintenance List COVID-19 VACCINE(1) Never done PNEUMOCOCCAL: 65+(1 - PCV) Never done BP CONTROLLED (<130/80) Never done DTAP,TDAP,TD(1 - Tdap) Never done SHINGRIX VACCINE(1 of 2) Never done DILATED RETINAL EXAM due on 09/23/2019 ADVANCE DIRECTIVE DISCUSSION Never done MAMMOGRAM due on 06/04/2022 INFLUENZA(1) due on 04/17/2022 HBA1C due on 04/17/2022 URINE ALBUMIN:CREATININE RATIO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 Clinic or becoming established with Psych. Also discussed with pt the potential care home effects of using benzodiazepine type medications. Pt reports she's not done Counseling, but has people she talks too. She is trying to get established with [facility]; on waiting lists. HTN - Uncontrolled BP with trying multiple medications that she's not been able to tolerate. DM - Uncontrolled. Denies checking sugars or being on medication; has not tolerated meds in the past. Pain - Continues to still have mid upper back pain that continues to hurt her, causing her to be nauseas and feel like she can't breathe. She is unsure if it's muscle related, but her will rub her back and hit sore spots. She is scheduled to see Chiropractor tomorrow. TIA - Pt states that she did find out from her Neuro appointment that she's actually had 4 mini strokes. Pt states that the Provider she saw was wanting to do everything and order multiple tests. Shedoesn't want to complete this and felt as though he was not listening to her and she just cried during her visit. Pt states that she trusts God and will go to [employer] and there are prayers for her. Itwas suggested that she return back in 4 weeks, but she can't. She prefers to come in here and discuss. Was suggested she go on Plavix, but she does not like the idea of this. Pt has taken Aspirin in the past, started couple days this week. Feels that her writing has gotten better, also agrees to this. Memory doing better, but will pause at times. She's unsure if this is anxiety related orTIA related. Neuro OV 12/02/21: IMPRESSION Left middle cerebral artery ischemic stroke, acute/subacute, due to large vessel atherosclerosis and thromboembolism. Suspect probable thromboembolic origin of multi-focal left mca territory ischemic infarction, with evidence of at least moderate degree of stenosis at the cavernous portion of the left intracranial ICA. Discuss neuroimaging, diagnosis and prevention plan with the patient and her . Ideally, I would recommend DAPT for 3 months, as well as high intensity statin. Patient prefers to avoid ASA due to prior GI disturbances. Would like to hold off Plavix to think about it. I explainedthe medication's mechanism of action and potential adverse effect. Patient verbalized understandingof the risks and benefit and far superior benefit in this situation, but would like to think about it and get back to us to discuss further. Discussed antihypertensive therapy for long-term BP goal <130/80 mmHg. Pt reports prior side effect to Amlodipine and lisinopril. Recommended Losartan, but patient would like to hold off for now. Discussed diet and lifestyle modifications, as well as the importance of weight loss of better bloodpressure control. Recommend home sleep study to screen for possible sleep apnea. Discussed ordering MRA of the head and neck w/o contrast to better charactarized left ICA disease, and patient is agreeable. Will also obtain a transthoracic echocardiogram. 14-days ZIO patch ordered. Most recent LDL 153 and patient denies statin therapy or alternative for cholesterol management. I discussed the importance of statin therapy to control the known ascd she has and she verbalized understanding. She would like to think about it first. Uncontrolled diabetes due to non-compliance. Patient was tearful toward the end of my interview. She reports significant stressors at home. She is anxious and depressed with prior history of PTSD. She hasn't been seen in the psychiatry clinic in the past, and refused a referral at this point. She has an upcoming appointment in the psychology clinic and prefer to continue with daily Lorazepam that she gets for anxiety management from primarycare clinic. I discussed with the patient the potential long-term adverse effects of benzodiazepineand risk of dependency and urged her to establish care in the psychiatry clinic. In summary, Mrs. 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 I had an extensive discussion with her and her today to address her mood issues, vascular risks and secondary stroke prevention. She unfortunately not willing to follow medical recommendation due to prior adverse effects of medications. I explained the rational and potential adverse effects, as well as alternative options to the patient and her . She verbalized understanding, and states thatshe wants to do the ''right thing'' for better health. All questions were answered to the patient's and her 's satisfaction. Will revisit in 4 weeks. Past medical history, appointments, medications, allergies reviewed. Previous Medical History PAST MEDICAL HISTORY Diagnosis Date Anxiety Chronic rhinitis deviated septum Diabetes mellitus type II, uncontrolled Esophageal reflux Moderate cervical dysplasia Other abnormal glucose Other and unspecified hyperlipidemia PMH - PAST MEDICAL HISTORY OF adopted Previous Surgical History PAST SURGICAL HISTORY Procedure Laterality Date CHOLECYSTECTOMY Cholecystectomy COLONOSCOPY FLX DX W/COLLJ SPEC WHEN PFRMD 11/30/98 Per repeat in EGD 11/30/98 Colonoscopy done at same time VAGINAL HYSTERECTOMY UTERUS 250 GM/< 1975 due to precancerous cells - not cancer Family History FAMILY HISTORY Adopted: Yes Patient Allergies ALLERGIES Allergen Reactions Benadryl [Diphenhyd* Caffeine Mental Status Change Compazine [Prochlor* Imipramine Mental Status Change Tcn [Tetracyclines] GI Upset Current Medications Current Outpatient Medications on File Prior to Visit Medication Sig fluconazole (DIFLUCAN) 150 mg tablet One tab STAT for vaginitis, may repeat once a week as needed LORazepam (ATIVAN) 1 mg tablet Take 1 tablet by mouth three times daily as needed for anxiety for up to 30 days. clobetasol (TEMOVATE) 0.05 % cream Apply to affected area twice daily. omeprazole (PRILOSEC) 20 mg capsule Take 1 capsule by mouth daily before breakfast. 1/2 hr before meal. Current Facility-Administered Medications on File Prior to Visit Medication perflutren lipid microspheres 1.3 mL in NaCl (PF) 0.9% 10 mL injection (DEFINITY) sodium chloride 0.9 % (flush) 10 mL (BD POSIFLUSH) Social History Social History Tobacco Use Smoking status: Never Smoker Smokeless tobacco: Never Used Vaping Use Vaping Use: Never used Substance Use Topics Alcohol use: Yes Comment: Selom Drug use: No EXAM: BP 158/72 (BP Site: Left Arm, BP Position: Sitting, BP Cuff Size: Large Adult) Pulse 84 Resp 16 Wt 90.6 kg (199 lb 12.8 oz) BMI 35.96 kg/m General Appearance: Well appearing, alert, in no acute distress, well-hydrated, well nourished. Overweight and crying during the exam. Lungs: Lungs clear to auscultation. No wheezing, rhonchi, rales.. Heart: RRR without murmur, gallop, or rubs. No ectopy. Health Maintenance List COVID-19 VACCINE(1) Never done BP CONTROLLED (<130/80) Never done DTAP,TDAP,TD(1 - Tdap) Never done SHINGRIX VACCINE(1 of 2) Never done DILATED RETINAL EXAM due on 09/23/2019 DIABETIC FOOT EXAM due on 05/17/2021 ADVANCE DIRECTIVE DISCUSSION Never done HBA1C due on 02/26/2022 LDL CHOLESTEROL due on 03/18/2022 INFLUENZA(Season Ended) due on 04/17/2022 MAMMOGRAM due on 06/04/2022 ANNUAL PCP TEAM CHRONIC DISEASE VISIT due on 11/13/2022 URINE ALBUMIN:CREATININE RATIO due on 11/27/2022 COLORECTAL CANCER SCREENING due on 01/02/2030 BONE DENSITY Completed HEPATITIS C SCREENING Completed PNEUMOVAX AGE 65 AND OVER WITH 5YR LOOKBACK Addressed MENINGOCOCCAL CONJUGATE Aged Out Data reviewed Epic ASSESSMENT/PLAN: 1. Anxiety - ICD9: 300.00, ICD10: F41.9 (primary diagnosis) - Add Buspar twice daily to regimen; start at 5 mg bid, will increase dose as able. - Suggested she find an appt to see Counselor 2. Cerebrovascular accident (CVA), unspecified mechanism (HCC) - ICD9: 434.91, ICD10: I63.9 - Discussed taking ASA every other day - Hold off on any further testing at this time 3. TIA (transient ischemic attack) - ICD9: 435.9, ICD10: G45.9 - As noted agove 4. Uncontrolled type 2 diabetes mellitus with hyperglycemia (HCC) - ICD9: 250.02, ICD10: E11.65 Monitor 5. Essential hypertension - ICD9: 401.9, ICD10: I10 BP improved today from previous readings; continue to montior 6. Mixed hyperlipidemia - ICD9: 272.2, ICD10: E78.2 Keep scheduled f/u appt on 01/21/22; labs prior Medical Decision Making: Problems: Moderate: 2+ stable chronic illnesses Data: Unique test(s) ordered: 3+ Risk: Moderate: Drug management Medical Decision Making Level: 4 - Moderate Janet Little MD The documentation for this note was completed by Krysta Oliva Ma acting as scribe for Janet Little MD. December 12, 2021 2:48 PM. Krysta Oliva Ma documented in this encounterSt[facility]04[facility] Miscellaneous Notes* Telephone Encounter - Snata Herrera Ma - 12/06/2021 8:57 AM EDT Spoke with pt, appt made. Santa Herrera Ma * Telephone Encounter - Janet Little MD - 12/05/2021 5:27 PM EDT OK to schedule sooner Janet Little MD * Telephone Encounter - Santa Herrera Ma - 12/05/2021 4:26 PM EDT Ok to schedule for sooner appt? Santa Herrera Ma * Telephone Encounter - Axel Chavez RN - 12/05/2021 4:09 PM EDT Patient calls to request sooner follow up appointment than January 21 for anxiety. Patient declines to see another provider. Patient vague with symptoms and reason for sooner appointment. Eventually patient reports that she wants to talk to provider about her MRI results and the mini-strokes she has had. Patient seen 12/02 by [facility]. Unable to schedule an appointment sooner. Please review and advise, Axel Chavez RN documented in this encounterSt. [facility]04-18-2022 Instructions* Patient Instructions* Chelsy Cleveland MD - 12/02/2021 11:48 AM EDT Images from the original note were not included. Regarding your visit with Dr. Cleveland today at [facility] we discussed the following: Impression: 1. Acute/subacute ischemic stroke 2. Left middle cerebral artery stenosis 3. Hypertension: Blood pressure goal < 130/80 Blood pressure today: BP 148/60 (BP Site: Right Arm, BP Position: Sitting, BP Cuff Size: Large Adult) Pulse 81 Temp 36.3 C (97.4 F) (Temporal) Resp 14 Ht 158.8 cm (5' 2.5) Wt 90.7 kg (200 lb) SpO2 97% BMI 36.00 kg/m 4. Hyperlipidemia: LDL goal < 70 Most recent LDL: LDL Cholesterol (mg/dL) Date Value 03/18/2021 153 5. Diabetes: Hba1c goal < 7.0 Most recent Hba1c: Hemoglobin A1C (%) Date Value 11/27/2021 12.4 03/18/2021 12.0 Recommendations: -Recommend daily Clopidogrel 75 mg -Recommend anti-hypertensive medications, one option is Losartan given prior reaction to Amlodipine -Echocardiogram of the heart ordered. -Heart monitor ordered, to wear for 14 days. -MRA of the neck without contrast ordered. -Home sleep study ordered. -Regular follow up with primary care doctor for health maintenance -Assist ensuring blood pressure and cholesterol are at goal -Screen and manage diabetes -Lifestyle modification -Establish goals -Diet -Regular Exercise as discussed -Establish weight goals with primary care doctor -Additional stroke reduction measures and stroke warning signs are listed below. Please do not hesitate to call if you have any questions Chelsy Cleveland MD ~~~~~~~~~~~~~~~~~~~~~~~~~~~~~~~~~~~~~~~~~~~~~~~~~~~~~~~~~~~~~~~~~~~~~~~~ Stroke Signs and Symptoms: *Stroke is a medical emergency. Know the warning signs of stroke: Sudden numbness or weakness of the face, arm or leg, especially on one side of the body Sudden confusion, trouble speaking, or understanding Sudden trouble seeing in one eye, or both eyes Sudden trouble walking, dizziness, loss of balance, or coordination Sudden severe headache with no known cause *If you, or someone with you, has one or more of these signs, don't delay! Immediately call 911, orthe emergency medical services (EMS) number so an ambulance can be sent for you. Also, check the time so that you will know when the symptoms first appeared. It is very important to take immediate action, every second counts. Medical treatment may be available if action is taken early enough. ~~~~~~~~~~~~~~~~~~~~~~~~~~~~~~~~~~~~~~~~~~~~~~~~~~~~~~~~~~~~~~~~~~~~~~~~ General Guidelines to Help Reduce Risk of Recurrent Stroke Blood Pressure Management: Blood Pressure reduction is recommended for both prevention of recurrent stroke and prevention of other vascular events in persons who have had an ischemic stroke or TIA and are beyond the first 24 hours. Several lifestyle modifications have been associated with BP reduction and are a reasonable part ofa comprehensive antihypertensive therapy -These modifications include: - salt restriction - weight loss - consumption of a diet rich in fruits, vegetables, and low-fat dairy products - Regular aerobic physical activity - Limited alcohol consumption Goal: Prehypertension (systolic BP of 120-139 mm Hg or diastolic BP of 80-89 mm Hg): Perform annual BP screening and lifestyle modifications Hypertension: Combine medications with above lifestyle modifications to reach your goal blood pressure as defined above. Monitor your blood pressure at home regularly to ensure you are reaching your goals Cholesterol and Lipid Management - Statin therapy with intensive lipid-lowering effects is recommended to reduce risk of stroke and cardiovascular events among patients with ischemic stroke or TIA who have evidence of atherosclerosis Diet: - Reduced sodium and increased potassium intake; DASH-style diet rich in fruits and vegetables - Consider Mediterranean diet supplemented with nuts Smoking and Tobacco Use: - Strongly recommend smoking and tobacco use cessation to reduce risk of stroke. - Counseling, nicotine products, and oral smoking cessation medications are effective for helping smokers quit and can be provided if needed. Alcohol Consumption: - Heavy drinkers should eliminate or reduce their consumption of alcohol. - Persons who continue drinking the following may be reasonable: - less than or equal to 2 drinks/day for men - less than or equal to 1 drink/day for non women Exercise - If capable of engaging in physical activity, at least 40 minutes of moderate to vigorous intensity physical exercise, typically defined as vigorous activity sufficient to break a sweat or noticeably raise heart rate, 3-4 days a week (eg, walking briskly, using an exercise bicycle) may be considered to reduce the risk factors and comorbid conditions that increase the likelihood of recurrent stroke - If disability after ischemic stroke, supervision by a healthcare professional, such as a physicaltherapist or cardiac rehabilitation professional, at least on initiation of an exercise regimen, may be considered Adopted from the [place] [employer] Attack : A Guideline for Healthcare Professionals Fromthe [place] [employer] Guidelines for the Prevention of Stroke in Patients With Stroke or Transient Ischemic - 2013 documented in this encounterSt. [facility]04-18-2022 History of Present illness Narrative* Chelsy Cleveland MD - 12/02/2021 10:14 AM EDT [facility] Initial Visit Consultation is requested by: Janet Little [address] [facility] [place] [address] PCP: Janet Little [address] [place] [address] [facility]EREBROVASCULAR H[facility] Maya Blanchard is a 71 year old female. Reason for Visit: stroke Date of Last Event: 10/09/2021 (estimated date) History of Event: Pt here with spouse for evaluation of MRI completed 10/09/2021 - ordered by PCP for c/o of difficulty with reading and penmanship that started about one month prior. History of stroke symptoms in 2016 following stressful event with son in law. Onset L sided numbness, L facial droop- which returned to baseline. She has tried/failed Lisinopril - leg pain and felt cognitively slowed down, ASA 81 - stomach upset Antiplatelets/Anticoagulants: - NA Statins: - NA Side effects: No Refills needed: No Residual Deficits: No residual deficits Current PT/OT/ST: No therapy needs Initial Discharge Disposition: Home Current Living Situation: Home with spouse Current use of a mobility aid for walking/getting around: None Questions for Visit: None at this moment. Do you have any planned upcoming surgeries or dental procedures? No Flako Buckley RN RN completing documentation PAST MEDICAL HISTORY Diagnosis Date Anxiety Chronic rhinitis deviated septum Diabetes mellitus type II, uncontrolled Esophageal reflux Moderate cervical dysplasia Other abnormal glucose Other and unspecified hyperlipidemia PMH - PAST MEDICAL HISTORY OF adopted PAST SURGICAL HISTORY Procedure Laterality Date CHOLECYSTECTOMY Cholecystectomy COLONOSCOPY FLX DX W/COLLJ SPEC WHEN PFRMD 11/30/98 Per repeat in EGD 11/30/98 Colonoscopy done at same time VAGINAL HYSTERECTOMY UTERUS 250 GM/< 1975 due to precancerous cells - not cancer FAMILY HISTORY Adopted: Yes Social History Tobacco Use Smoking status: Never Smoker Smokeless tobacco: Never Used Vaping Use Vaping Use: Never used Substance Use Topics Alcohol use: Yes Comment: Selom Drug use: No MEDICATIONS Current Outpatient Medications Medication Sig fluconazole (DIFLUCAN) 150 mg tablet One tab STAT for vaginitis, may repeat once a week as needed LORazepam (ATIVAN) 1 mg tablet Take 1 tablet by mouth three times daily as needed for anxiety for up to 30 days. clobetasol (TEMOVATE) 0.05 % cream Apply to affected area twice daily. omeprazole (PRILOSEC) 20 mg capsule Take 1 capsule by mouth daily before breakfast. 1/2 hr before meal. No current facility-administered medications for this visit. ALLERGIES ALLERGIES Allergen Reactions Benadryl [Diphenhyd* Caffeine Mental Status Change Compazine [Prochlor* Imipramine Mental Status Change Tcn [Tetracyclines] GI Upset PHYSICAL EXAMINATION There were no vitals taken for this visit. General: Well-developed, well-nourished, in no acute distress. HEENT: Normocephalic, atraumatic. Sclerae anicteric. Oropharynx clear. Neck:supple Heart: Regular rate and rhythm Lungs: symmetric chest wall expansion, non-labored breathing Abdomen: Abdomen soft, non-tender. Extremities: No edema, cyanosis, or clubbing. 2+ dorsalis pedis pulses bilaterally. Skin: No rash or ecchymoses. Neurological: Awake, alert, oriented to person, place, and time. Speech fluent, no dysarthria. Naming, repetition, recall, comprehension, calculation intact. Good attention and insight into illness. Cranial Nerves: PERRL, extraocular movements intact without nystagmus. Visual nascimento full. Fundoscopic examination normal with sharp optic discs bilaterally. Facial sensation and movements normal andsymmetric. Palate elevates equal bilaterally. Tongue midline. Trapezius strength 5/5 bilaterally. Motor: Normal bulk and tone. Strength 5/5 throughout. No pronator drift or tremor. Sensation: Intact light touch, pinprick, temperature, proprioception, and vibration. Coordination: Rapid alternating movements symmetric bilaterally. [id number], [id number] without dysmetria bilaterally. Reflexes: 2+/4 reflexes symmetric bilaterally. Plantar response is flexor bilaterally. Gait: Narrow-based, normal spaced and stable without assistance. Tandem gait is stable. LABS Cholesterol: Cholesterol, Total (mg/dL) Date Value 03/18/2021 225 LDL Cholesterol (mg/dL) Date Value 03/18/2021 153 HDL Cholesterol (mg/dL) Date Value 03/18/2021 44 Triglyceride (mg/dL) Date Value 03/18/2021 138 Diabetes: Hemoglobin A1C (%) Date Value 11/27/2021 12.4 03/18/2021 12.0 IMAGING MRI of the brain w/wo contrast, 10/09, Multifocal small areas of restricted diffusion in the left cerebral hemisphere and a punctate focus in the left paramedian pontomedullary junction. Suspect prioremboli to these territories. Minimal petechial-type conversion associated with the small infarct inthe left premotor area. No evidence for space-occupying acute hemorrhage. Enhancement indicates a subacute process which has likely occurred over the past 7-10 days. CTA of the head and neck: Short segment moderate to severe stenosis at the cavernous left ICA segment. Moderate stenosis at the origin of the left MCA. Also noted is a short segment mild stenosis at the origin of the right MCA. The intracranial arteries are otherwise normal in caliber. No hemodynamically significant stenoses and neck arteries although there are atherosclerotic calcifications associated with the proximal cervical ICAs bilaterally. Patient Entered Questionnaires PROMIS/NeuroQoL Score Percentiles Physical Health 11/30/2021 Physical Function Percentile 46 Sleep Percentile 66 Fatigue Percentile 54 Pain Interference Percentile 21* PROMIS SOCIAL ROLE SCORE 11/30/2021 Social Role Satisfaction Percentile 50 Mental Health 11/30/2021 NeuroQol Cognitive Function Percentile 54 General Self-Efficacy Percentile 10 PROMIS Global Health Scale 11/30/2021 08/19/2020 05/14/2020 Physical Health Percentile 41 22* 15 Mental Health Percentile 13 9 19* Percentiles provide an indication of how a patient's score ranks in relation to the [place] general population. > 31st percentile is within normal limits or better * < 31st percentile is at least SD worse than population, which may be clinically relevant < 16th percentile is at least 1 SD worse than population and warrants attention Depression Screening: PHQ-9 01/03/2019 04/01/2019 11/30/2021 Score 15 10 7 Self-Harm Response 1 0 1 PHQ-9 Scores: PHQ-9 Self-Harm (Item 9) Response: 0 - 9 No to Mild depression 0 - Not at all 10 - 14 Moderate depression 1 - Several Days > 15 Severe depression 2 - More than half the days 3 - Nearly every day Sleep Apnea Probability Score 11/30/2021 Sleep Apnea Screen V2 38.06 (Sleep study not recommended) Stroke Mechanism and Scales Ischemic or TIA: Ischemic Stroke TOAST Mechanism (CCF-MODIFIED): Large-Artery Atherosclerosis (Embolus/Thrombosis) Large-Artery Atherosclerosis (Embolus/Thrombosis): Intracranial Disease - Anterior Circulation Cerebrovascular Disease w/o Stroke Event: Carotid Stenosis and Intracranial Stenosis Modified [place] Score: Score: 1 NIH Stroke Scale: LOC: 0 LOC Questions: 0 LOC Commands: 0 LOC Normal Gaze: 0 Visual Nascimento: 0 Facial Palsy: 0 Motor Left Arm: 0 Motor Right Arm: 0 Motor Left Le Motor Right Le Limb Ataxia: 0 Sensory: 0 Language: 0 Dysarthria: 0 Extinction/Neglect: 0 Total Daily NIHSS: 0 IMPRESSION Left middle cerebral artery ischemic stroke, acute/subacute, due to large vessel atherosclerosis and thromboembolism. Suspect probable thromboembolic origin of multi-focal left mca territory ischemic infarction, with evidence of at least moderate degree of stenosis at the cavernous portion of the left intracranial ICA. Discuss neuroimaging, diagnosis and prevention plan with the patient and her . Ideally, I would recommend DAPT for 3 months, as well as high intensity statin. Patient prefers to avoid ASA due to prior GI disturbances. Would like to hold off Plavix to think about it. I explainedthe medication's mechanism of action and potential adverse effect. Patient verbalized understandingof the risks and benefit and far superior benefit in this situation, but would like to think about it and get back to us to discuss further. Discussed antihypertensive therapy for long-term BP goal <130/80 mmHg. Pt reports prior side effect to Amlodipine and lisinopril. Recommended Losartan, but patient would like to hold off for now. Discussed diet and lifestyle modifications, as well as the importance of weight loss of better bloodpressure control. Recommend home sleep study to screen for possible sleep apnea. Discussed ordering MRA of the head and neck w/o contrast to better charactarized left ICA disease, and patient is agreeable. Will also obtain a transthoracic echocardiogram. 14-days ZIO patch ordered. Most recent LDL 153 and patient denies statin therapy or alternative for cholesterol management. I discussed the importance of statin therapy to control the known ascd she has and she verbalized understanding. She would like to think about it first. Uncontrolled diabetes due to non-compliance. Patient was tearful toward the end of my interview. She reports significant stressors at home. She is anxious and depressed with prior history of PTSD. She hasn't been seen in the psychiatry clinic in the past, and refused a referral at this point. She has an upcoming appointment in the psychology clinic and prefer to continue with daily Lorazepam that she gets for anxiety management from primarycare clinic. I discussed with the patient the potential long-term adverse effects of benzodiazepineand risk of dependency and urged her to establish care in the psychiatry clinic. In summary, Mrs. 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 I had an extensive discussion with her and her today to address her mood issues, vascular risks and secondary stroke prevention. She unfortunately not willing to follow medical recommendation due to prior adverse effects of medications. I explained the rational and potential adverse effects, as well as alternative options to the patient and her . She verbalized understanding, and states thatshe wants to do the ''right thing'' for better health. All questions were answered to the patient's and her 's satisfaction. Will revisit in 4 weeks. I spent a total of 80 minutes on the date of service which included preparing to see the patient, [id number] patient care, completing clinical documentation, obtaining and/or reviewing separately obtained history, performing a medically appropriate examination, counseling and educating the patient/family/caregiver, ordering medications, tests, or procedures, communicating with other HCPs (not separately reported), independently interpreting results (not separately reported), communicating results to the patient/family/caregiver and care coordination (not separately reported) SIGNATURE Chelsy Cleveland MD Staff, Vascular Neurology CC Janet Little [address] [phone] documented in this encounterSt. [facility]04[facility]22 Miscellaneous Notes* Telephone Encounter - Santa Herrera Ma - 11/26/2021 11:21 AM EDT The following approved medication requests have been transmitted electronically. Signed Prescriptions Disp Refills fluconazole (DIFLUCAN) 150 mg tablet 10 tablet 0 Sig: One tab STAT for vaginitis, may repeat once a week as needed ALLISON: No Authorizing Provider: JANET LITTLE Ma * Telephone Encounter - Janet Little MD - 11/26/2021 10:57 AM EDT OK to refill as ordered Janet Little MD * Telephone Encounter - Ijeoma Goldman - 11/26/2021 10:04 AM EDT Patient has been identified by name and date of : Yes Pending Prescriptions Disp Refills FLUCONAZOLE 150 MG TABLET 10 tablet 0 Sig: One tab STAT for vaginitis, may repeat once a week as needed ALLISON: No RX INSTRUCTIONS: Patient aware RX will be sent to pharmacy. No need to notify patient. Ijeoma Goldman documented in this encounterSt. [facility]04-06-[facility]22 History of Present illness Narrative* Kristin Salguero MA - 11/20/2021 2:48 PM EDT POPULATION HEALTH NAVIGATION OUTREACH Action/FYI Spoke with patient. Patient is on [employer] for the following HM care gaps: BP CONTROLLED (<130/80) - Patient has an appointment scheduled for 01/21/22. Mammogram - Due 06/04/22. Last done 06/04/21 at [facility]. Patient will schedule with the same provider this year. DILATED RETINAL EXAM - Patient sees an outside provider but could not recall his name. HBA1C - Order approved by PCP. Patient informed. She will walk in. URINE ALBUMIN:CREATININE RATIO - Order approved by PCP. Patient informed. She will walk in. ADVANCE DIRECTIVE DISCUSSION - Patient does have advanced directives. Requested patient bring a copy to the office. Pt identified by name and : YES, via phone Outreach Outcome/Action Spoke to patient or caregiver: No action required (information or reminder only) Navigation Signature: Kristin Salguero MA November 20, 2021 2:48 PM * Janet Little MD - 11/20/2021 2:28 PM EDT Labs ordered Janet Little MD * Kristin Salguero MA - 11/19/2021 5:04 PM EDT POPULATION HEALTH NAVIGATION OUTREACH Action/FYI Left message on patient's voice mail to return my call. Jetpachart message sent. Patient is on [employer] for the following HM care gaps: BP CONTROLLED (<130/80) - Patient has an appointment scheduled for 01/21/22. Mammogram - Due 06/04/22. Last done 06/04/21 at [facility]. DILATED RETINAL EXAM HBA1C - Please file pending order and add any orders required or preferred and notify me when signed so the patient can be informed. URINE ALBUMIN:CREATININE RATIO - Please file pending order and add any orders required or preferredand notify me when signed so the patient can be informed. Pended Orders ID Status Description Pended By When Reason [id number] Pended HGB A1C Kristin Salguero MA 11/19/21 170 [id number] Pended ALBUMIN/CREAT RATIO RND UR Kristin Salguero MA 11/19/21 170 ADVANCE DIRECTIVE DISCUSSION Pt identified by name and : NO Outreach Outcome/Action Unable to reach patient: Left message FloTimet message sent Reason for Outreach Care Gap or Scheduling/Wellness visits Payer: Payor: [employer] MEDICARE / Plan: [employer] MED[employer]ARE PPO / Product Type: PPO / Care Gap Reviewed:: Breast Cancer screening Diabetic Eye Exam HBA1C Nephropathy (Albumin/Creatinine) Urine Reminder: Reminder note to check Health Maintenance for items below Health Maintenance items due: COVID-19 VACCINE(1) Never done BP CONTROLLED (<130/80) Never done DTAP,TDAP,TD(1 - Tdap) Never done SHINGRIX VACCINE(1 of 2) Never done DILATED RETINAL EXAM due on 09/23/2019 DEPRESSION SCREENING due on 05/14/2021 DIABETIC FOOT EXAM due on 05/17/2021 HBA1C due on 06/18/2021 URINE ALBUMIN:CREATININE RATIO due on 08/14/2021 ADVANCE DIRECTIVE DISCUSSION Never done Message Sent to Practice: Yes Navigation Signature: Kristin Salguero MA November 19, 2021 5:05 PM documented in this encounterSt. [facility]03-30-[facility]22 History of Present illness Narrative* Janet Little MD - 11/13/2021 3:20 PM EDT Chief Complaint Patient presents with: Follow Up HPI Maya Blanchard is a 71 year old female who presents here today for a 2 week follow up. Pt here today for a delayed 2 week f/u. At previous OV pt had concern about her memory issues that started in July. Pt reported that some of her motor skills had seem to be affected on her right side. At times when going to grab something, she misses it due to being off from where the item is. Notes a change in her reading, becoming slower then when she previously would read. Feels she is a great reader. 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 The reading, writing and talking are not worse. She forces herself to read and then this causes her to become angry. She states that she has a hard time coming up with words and feels she gets distracted. Also reports a headache on the left side. MRI Summary: Multifocal small areas of restricted diffusion in the left cerebral hemisphere and a punctate focus in the left paramedian pontomedullary junction. Suspect prior emboli to these territories. Minimal petechial-type conversion associated with the small infarct in the left premotor area. No evidence for space-occupying acute hemorrhage. Enhancement indicates a subacute process which has likely occurred over the past 7-10 days. Infarcts of this type can be associated with plaque along the aorta near the takeoffs of the left common carotid and left subclavian, less likely left carotid bifurcation disease. Would recommend follow-up assessment of the cervical and intracranial vasculature by CTA or MRA. If screening of the vasculature is grossly negative, echocardiography may be useful to exclude any relevant valvular disease. CTA Summary: IMPRESSION: Short segment moderate stenosis at the origin of the left MCA. Also noted is a short segment mild stenosis at the origin of the right MCA. The intracranial arteries are otherwise normal in caliber. No hemodynamically significant stenoses and neck arteries although there are atherosclerotic calcifications associated with the proximal cervical ICAs bilaterally. Her symptoms are about the same now as kip were two weeks ago. Pt not sure if she followed with a Neurologist after her first stroke, Office note from 07/28/[address] Mandel stated she had follows up in Aug [address] Moreau however no notes were received into [employer] if she did see this provider at that time. Anxiety: Chronic and treated with Ativan. Pt anxiety has become triggered recently due to her daughter going through another divorce. Pt on current regimen of Ativan 1 mg BID, wants to discuss takinga 3rd pill if needed. Denies following with a Counselor, but has people she talks too. Stress levelis no worse but no better. Pt crying in office, not happy to hear she had another stroke. She states her hair is falling out more which she knows is probably stress related. Pt states that her daughter can't leave living situation currently because she doesn't have money to move out or buy home, her soon to be ex doesn't want to pay child support for the 15 month old. Her daughter was in the hospital due to anxiety. She states that most of the time she is ok but today is a bad day because of the increased pain. Pain: all over, had middle back pain that was so bad she was not able to raise her arms and has left buttock pain with pain into the left leg. No numbness/tingling/weakness to the leg. No injury. Shehas had this pain off and on x 3 weeks. Has had 2 chiropractic adjustments which have helped and has been getting 1 massage a month. HTN: Uncontrolled HTN exacerbated with anxiety. Pt does not check her BP at home, states it only makes the BP higher and then increases her anxiety. She does not take BP medications like she has beenprescribed in the past. Has not been able to tolerate and antihypertensive meds. She has throbbing in the ears off and on. DM: does not check BS at home, does not take DM medications; has not been able to tolerate any medications. Her BS have been doing a little better she states, running more in the 200 range. Normally in the 300 range, occ in 400. No changes to diet or activity. She states at times she doesn't eat due to stress. Lipid: no exercise, does not watch diet. Does not take cholesterol medication. Past medical history, appointments, medications, allergies reviewed. Previous Medical History PAST MEDICAL HISTORY Diagnosis Date Anxiety Chronic rhinitis deviated septum Diabetes mellitus type II, uncontrolled (HCC) Esophageal reflux Moderate cervical dysplasia Other abnormal glucose Other and unspecified hyperlipidemia PMH - PAST MEDICAL HISTORY OF adopted Previous Surgical History PAST SURGICAL HISTORY Procedure Laterality Date CHOLECYSTECTOMY Cholecystectomy COLONOSCOPY FLX DX W/COLLJ SPEC WHEN PFRMD 11/30/98 Per repeat in EGD 11/30/98 Colonoscopy done at same time VAGINAL HYSTERECTOMY UTERUS 250 GM/< 1975 due to precancerous cells - not cancer Family History FAMILY HISTORY Adopted: Yes Patient Allergies ALLERGIES Allergen Reactions Benadryl [Diphenhyd* Caffeine Mental Status Change Compazine [Prochlor* Imipramine Mental Status Change Tcn [Tetracyclines] GI Upset Current Medications Current Outpatient Medications on File Prior to Visit Medication Sig LORazepam (ATIVAN) 1 mg tablet Take 1 tablet by mouth three times daily as needed for anxiety. LORazepam (ATIVAN) 1 mg tablet take 1 tablet by mouth twice a day if needed for anxiety for up to 90 DAYS fluconazole (DIFLUCAN) 150 mg tablet One tab STAT for vaginitis, may repeat once a week as needed clobetasol (TEMOVATE) 0.05 % cream Apply to affected area twice daily. omeprazole (PRILOSEC) 20 mg capsule Take 1 capsule by mouth daily before breakfast. 1/2 hr before meal. No current facility-administered medications on file prior to visit. Social History Social History Tobacco Use Smoking status: Never Smoker Smokeless tobacco: Never Used Vaping Use Vaping Use: Never used Substance Use Topics Alcohol use: Yes Comment: Selom Drug use: No EXAM: BP 180/74 Pulse 88 Resp 18 Ht 158.8 cm (5' 2.5) Wt 92 kg (202 lb 12.8 oz) BMI 36.50 kg/m General Appearance: Well appearing, alert, in no acute distress, well-hydrated, well nourished. andOverweight. Lungs: Lungs clear to auscultation. No wheezing, rhonchi, rales.. Heart: RRR without murmur, gallop, or rubs. No ectopy. Health Maintenance List COVID-19 VACCINE(1) Never done BP CONTROLLED (<130/80) Never done DTAP,TDAP,TD(1 - Tdap) Never done SHINGRIX VACCINE(1 of 2) Never done DILATED RETINAL EXAM due on 09/23/2019 INFLUENZA(1) due on 04/17/2021 DEPRESSION SCREENING due on 05/14/2021 DIABETIC FOOT EXAM due on 05/17/2021 HBA1C due on 06/18/2021 URINE ALBUMIN:CREATININE RATIO due on 08/14/2021 ADVANCE DIRECTIVE DISCUSSION Never done LDL CHOLESTEROL due on 03/18/2022 MAMMOGRAM due on 06/04/2022 ANNUAL PCP TEAM CHRONIC DISEASE VISIT due on 09/24/2022 COLORECTAL CANCER SCREENING due on 01/02/2030 BONE DENSITY Completed HEPATITIS C SCREENING Completed PNEUMOVAX AGE 65 AND OVER WITH 5YR LOOKBACK Addressed MENINGOCOCCAL CONJUGATE Aged Out Data reviewed Appointment on 10/18/2021 Component Date Value Creatinine 10/18/2021 0.58 Estimated Glomerular Manohar* 10/18/2021 98 Hospital Outpatient Visit on 10/09/2021 Component Date Value Radiology Result 10/09/2021 ACTIONABLE (A) ASSESSMENT/PLAN: 1. Cerebrovascular accident (CVA), unspecified mechanism (HCC) - ICD9: 434.91, ICD10: I63.9 (primary diagnosis) - CONSULT TO NEUROLOGY 2. Anxiety - ICD9: 300.00, ICD10: F41.9 May increase ativan to tid as needed 3. TIA (transient ischemic attack) - ICD9: 435.9, ICD10: G45.9 4. Upper back pain - ICD9: 724.5, ICD10: M54.9 Symptomatic carea 5. Type 2 diabetes mellitus without complication, without long-term current use of insulin (HCC) - ICD9: 250.00, ICD10: E11.9 poorly controlled Follow up in 1 month I agree with the Chief Complaint, ROS, and Past Histories independently gathered by the clinical ict support and test engineers and the remaining scribed note accurately describes my personal service to the patient. Medical Decision Making: Problems: Moderate: 2+ stable chronic illnesses and New problem with uncertain prognosis Data: Unique test result(s) reviewed: 2 Risk: Moderate: Drug management Medical Decision Making Level: 4 - Moderate Janet Little MD The documentation for this note was completed by Santa Herrera Ma acting as scribe for Janet Little MD. November 13, 2021 2:56 PM. Santa Herrera Ma documented in this encounterSt. [facility]02-24-[facility]22 Miscellaneous Notes* Telephone Encounter - Rudolph Machuca LPN - 10/10/2021 9:21 AM EST Patient notified of results, verbalizes understanding of instructions. Rudolph Machuca LPN * Telephone Encounter - Janet Little MD - 10/10/2021 9:06 AM EST Please notify patient that her head MRI did show sings of a small stroke; the radiologist recommended getting a CT study of her carotid arteries to check these out further. Order filed for this, she needs to have blood work to document her kidney function before the CT is done Janet Little MD documented in this encounterSt. [facility]11-14-2012 History of Past illness Narrative* Problem Noted Date Resolved Date Elevated BP 06/30/2012 08/28/2016 Nonspecific abnormal results of thyroid function study 10/05/2007 08/28/2016 Overview: TSH - Sep 2007 Essential hypertension, benign 09/02/2007 1 08/30/2011 Dysmetabolic syndrome X 09/12/2005 09/02/19 08 Other abnormal glucose 7 Overview: 123 Sep 2007 documented as of this encounter (statuses as of 11/13/2021) [facility] of Past illness Narrative* Problem Noted Date Resolved Date Elevated BP 06/30/2012 08/28/2016 Nonspecific abnormal results of thyroid function study 10/05/2007 08/28/2016 Overview: TSH - Sep 2007 Essential hypertension, benign 09/02/2007 1 08/30/2011 Dysmetabolic syndrome X 09/12/2005 09/02/19 08 Other abnormal glucose 7 Overview: 123 Sep 2007 documented as of this encounter (statuses as of 11/20/2021) [facility] Past illness Narrative* Problem Noted Date Resolved Date Elevated BP 06/30/2012 08/28/2016 Nonspecific abnormal results of thyroid function study 10/05/2007 08/28/2016 Overview: TSH Sep 2007 Essential hypertension, benign 09/02/2007 1 08/30/2011 Dysmetabolic syndrome X 09/12/2005 09/02/19 08 Other abnormal glucose 7 Overview: 123 Sep 2007 documented as of this encounter (statuses as of 11/26/2021) [facility] illness Narrative* Problem Noted Date Resolved Date Elevated BP 06/30/2012 08/28/2016 Nonspecific abnormal results of thyroid function study 10/05/2007 08/28/2016 Overview: TSH Sep 2007 Essential hypertension, benign 09/02/2007 1 08/30/2011 Dysmetabolic syndrome X 09/12/2005 09/02/19 08 Other abnormal glucose 7 Overview: 123 Sep 2007 documented as of this encounter (statuses as of 12/04/2021) [facility] illness Narrative* Problem Noted Date Resolved Date Elevated BP 06/30/2012 08/28/2016 Nonspecific abnormal results of thyroid function study 10/05/2007 08/28/2016 Overview: TSH Sep 2007 Essential hypertension, benign 09/02/2007 1 08/30/2011 Dysmetabolic syndrome X 09/12/2005 09/02/19 08 Other abnormal glucose 7 Overview: 123 Sep 2007 documented as of this encounter (statuses as of 12/06/2021) [facility] illness Narrative* Problem Noted Date Resolved Date Elevated BP 06/30/2012 08/28/2016 Nonspecific abnormal results of thyroid function study 10/05/2007 08/28/2016 Overview: TSH Sep 2007 Essential hypertension, benign 09/02/2007 1 08/30/2011 Dysmetabolic syndrome X 09/12/2005 09/02/19 08 Other abnormal glucose 7 Overview: 123 Sep 2007 documented as of this encounter (statuses as of 12/12/2021) [facility] Narrative* Problem Noted Date Resolved Date Elevated BP 06/30/2012 08/28/2016 Nonspecific abnormal results of thyroid function study 10/05/2007 08/28/2016 Overview: TSH 8 - Sep 2007 Essential hypertension, benign 09/02/2007 1 08/30/2011 Dysmetabolic syndrome X 09/12/2005 09/02/19 08 Other abnormal glucose 7 Overview: 123 Sep 2007 documented as of this encounter (statuses as of 12/24/2021) [facility] Narrative* Problem Noted Date Resolved Date Elevated BP 06/30/2012 08/28/2016 Nonspecific abnormal results of thyroid function study 10/05/2007 08/28/2016 Overview: TSH 8 - Sep 2007 Essential hypertension, benign 09/02/2007 1 08/30/2011 Dysmetabolic syndrome X 09/12/2005 09/02/19 08 Other abnormal glucose 7 Overview: 123 Sep 2007 documented as of this encounter (statuses as of 12/24/2021) [facility] Narrative* Problem Noted Date Resolved Date Elevated BP 06/30/2012 08/28/2016 Nonspecific abnormal results of thyroid function study 10/05/2007 08/28/2016 Overview: TSH 8 - Sep 2007 Essential hypertension, benign 09/02/2007 1 08/30/2011 Dysmetabolic syndrome X 09/12/2005 09/02/19 08 Other abnormal glucose 7 Overview: 123 Sep 2007 documented as of this encounter (statuses as of 12/26/2021) [facility] Narrative* Problem Noted Date Resolved Date Elevated BP 06/30/2012 08/28/2016 Nonspecific abnormal results of thyroid function study 10/05/2007 08/28/2016 Overview: TSH 8 - Sep 2007 Essential hypertension, benign 09/02/2007 1 08/30/2011 Dysmetabolic syndrome X 09/12/2005 09/02/19 08 Other abnormal glucose 7 Overview: 123 Sep 2007 documented as of this encounter (statuses as of 12/28/2021) [facility] Narrative* Problem Noted Date Resolved Date Elevated BP 06/30/2012 08/28/2016 Nonspecific abnormal results of thyroid function study 10/05/2007 08/28/2016 Overview: TSH - Sep 2007 Essential hypertension, benign 09/02/2007 1 08/30/2011 Dysmetabolic syndrome X 09/12/2005 09/02/19 08 Other abnormal glucose 7 Overview: 123 Sep 2007 documented as of this encounter (statuses as of 01/15/2022) [facility] Narrative* Problem Noted Date Resolved Date Elevated BP 06/30/2012 08/28/2016 Nonspecific abnormal results of thyroid function study 10/05/2007 08/28/2016 Overview: TSH Sep 2007 Essential hypertension, benign 09/02/2007 1 08/30/2011 Dysmetabolic syndrome X 09/12/2005 09/02/19 08 Other abnormal glucose 7 Overview: 123 Sep 2007 documented as of this encounter (statuses as of 01/27/2022) [facility] Narrative* Problem Noted Date Resolved Date Elevated BP 06/30/2012 08/28/2016 Nonspecific abnormal results of thyroid function study 10/05/2007 08/28/2016 Overview: TSH 8 - Sep 2007 Essential hypertension, benign 09/02/2007 1 08/30/2011 Dysmetabolic syndrome X 09/12/2005 09/02/19 08 Other abnormal glucose 7 Overview: 123 Sep 2007 documented as of this encounter (statuses as of 03/03/2022) [facility] Narrative* Problem Noted Date Resolved Date Elevated BP 06/30/2012 08/28/2016 Nonspecific abnormal results of thyroid function study 10/05/2007 08/28/2016 Overview: TSH 8 - Sep 2007 Essential hypertension, benign 09/02/2007 1 08/30/2011 Dysmetabolic syndrome X 09/12/2005 09/02/19 08 Other abnormal glucose 7 Overview: 123 Sep 2007 documented as of this encounter (statuses as of 03/11/2022) [facility] Narrative* Problem Noted Date Resolved Date Elevated BP 06/30/2012 08/28/2016 Nonspecific abnormal results of thyroid function study 10/05/2007 08/28/2016 Overview: TSH 8 - Sep 2007 Essential hypertension, benign 09/02/2007 1 08/30/2011 Dysmetabolic syndrome X 09/12/2005 09/02/19 08 Other abnormal glucose 7 Overview: 123 Sep 2007 documented as of this encounter (statuses as of 04/17/2022) [facility] Narrative* Problem Noted Date Resolved Date Elevated BP 06/30/2012 08/28/2016 Nonspecific abnormal results of thyroid function study 10/05/2007 08/28/2016 Overview: TSH 8 - Sep 2007 Essential hypertension, benign 09/02/2007 1 08/30/2011 Dysmetabolic syndrome X 09/12/2005 09/02/19 08 Other abnormal glucose 7 Overview: 123 Sep 2007 documented as of this encounter (statuses as of 07/13/2022) [facility] Narrative* Problem Noted Date Resolved Date Elevated BP 06/30/2012 08/28/2016 Nonspecific abnormal results of thyroid function study 10/05/2007 08/28/2016 Overview: TSH 8 - Sep 2007 Essential hypertension, benign 09/02/2007 1 08/30/2011 Dysmetabolic syndrome X 09/12/2005 09/02/19 08 Other abnormal glucose 7 Overview: 123 Sep 2007 documented as of this encounter (statuses as of 07/14/2022) [facility] Narrative* Problem Noted Date Resolved Date Elevated BP 06/30/2012 08/28/2016 Nonspecific abnormal results of thyroid function study 10/05/2007 08/28/2016 Overview: TSH - Sep 2007 Essential hypertension, benign 09/02/2007 1 08/30/2011 Dysmetabolic syndrome X 09/12/2005 09/02/19 08 Other abnormal glucose 7 Overview: 123 Sep 2007 documented as of this encounter (statuses as of 07/21/2022) [facility] Narrative* Problem Noted Date Resolved Date Elevated BP 06/30/2012 08/28/2016 Nonspecific abnormal results of thyroid function study 10/05/2007 08/28/2016 Overview: TSH Sep 2007 Essential hypertension, benign 09/02/200708/30/2011 Dysmetabolic syndrome X 09/12/2005 09/02/19 08 Other abnormal glucose 7 Overview: 123 Sep 2007 documented as of this encounter (statuses as of 08/04/2022) [facility] Narrative* Problem Noted Date Resolved Date Elevated BP 06/30/2012 08/28/2016 Nonspecific abnormal results of thyroid function study 10/05/2007 08/28/2016 Overview: TSH 8 - Sep 2007 Essential hypertension, benign 09/02/2007 1 08/30/2011 Dysmetabolic syndrome X 09/12/2005 09/02/19 08 Other abnormal glucose 7 Overview: 123 Sep 2007 documented as of this encounter (statuses as of 08/27/2022) [facility] Narrative* Problem Noted Date Resolved Date Elevated BP 06/30/2012 08/28/2016 Nonspecific abnormal results of thyroid function study 10/05/2007 08/28/2016 Overview: TSH 8 - Sep 2007 Essential hypertension, benign 09/02/2007 1 08/30/2011 Dysmetabolic syndrome X 09/12/2005 09/02/19 08 Other abnormal glucose 7 Overview: 123 Sep 2007 documented as of this encounter (statuses as of 10/03/2022) [facility] Narrative* Problem Noted Date Resolved Date Elevated BP 06/30/2012 08/28/2016 Nonspecific abnormal results of thyroid function study 10/05/2007 08/28/2016 Overview: TSH 8 - Sep 2007 Essential hypertension, benign 09/02/2007 1 08/30/2011 Dysmetabolic syndrome X 09/12/2005 09/02/19 08 Other abnormal glucose 7 Overview: 123 Sep 2007 documented as of this encounter (statuses as of 10/17/2022) [facility] History of Past illness Narrative* Problem Noted Date Resolved Date Elevated BP 06/30/2012 08/28/2016 Nonspecific abnormal results of thyroid function study 10/05/2007 08/28/2016 Overview: TSH 8 - Sep 2007 Essential hypertension, benign 09/02/2007 1 08/30/2011 Dysmetabolic syndrome X 09/12/2005 09/02/19 08 Other abnormal glucose 7 Overview: 123 Sep 2007 documented as of this encounter (statuses as of 10/21/2022) [facility] History of Past illness Narrative* Problem Noted Date Resolved Date Elevated BP 06/30/2012 08/28/2016 Nonspecific abnormal results of thyroid function study 10/05/2007 08/28/2016 Overview: TSH 8 - Sep 2007 Essential hypertension, benign 09/02/2007 1 08/30/2011 Dysmetabolic syndrome X 09/12/2005 09/02/19 08 Other abnormal glucose 7 Overview: 123 Sep 2007 documented as of this encounter (statuses as of 11/24/2022) [facility] History of Past illness Narrative* Problem Noted Date Resolved Date Elevated BP 06/30/2012 08/28/2016 Nonspecific abnormal results of thyroid function study 10/05/2007 08/28/2016 Overview: TSH - Sep 2007 Essential hypertension, benign 09/02/2007 1 08/30/2011 Dysmetabolic syndrome X 09/12/2005 09/02/19 08 Other abnormal glucose 7 Overview: 123 Sep 2007 documented as of this encounter (statuses as of 01/15/2023) [facility] History of Past illness Narrative* Problem Noted Date Resolved Date Elevated BP 06/30/2012 08/28/2016 Nonspecific abnormal results of thyroid function study 10/05/2007 08/28/2016 Overview: TSH Sep 2007 Essential hypertension, benign 09/02/200708/30/2011 Dysmetabolic syndrome X 09/12/2005 09/02/19 08 Other abnormal glucose 7 Overview: 123 Sep 2007 documented as of this encounter (statuses as of 01/22/2023) [facility] History of Past illness Narrative* Problem Noted Date Resolved Date Elevated BP 06/30/2012 08/28/2016 Nonspecific abnormal results of thyroid function study 10/05/2007 08/28/2016 Overview: TSH 8 - Sep 2007 Essential hypertension, benign 09/02/2007 1 08/30/2011 Dysmetabolic syndrome X 09/12/2005 09/02/19 08 Other abnormal glucose 7 Overview: 123 Sep 2007 documented as of this encounter (statuses as of 01/22/2023) [facility] History of Past illness Narrative* Problem Noted Date Resolved Date Elevated BP 06/30/2012 08/28/2016 Nonspecific abnormal results of thyroid function study 10/05/2007 08/28/2016 Overview: TSH 8 - Sep 2007 Essential hypertension, benign 09/02/2007 1 08/30/2011 Dysmetabolic syndrome X 09/12/2005 09/02/19 08 Other abnormal glucose 7 Overview: 123 Sep 2007 documented as of this encounter (statuses as of 01/25/2023) [facility] History of Past illness Narrative* Problem Noted Date Resolved Date Elevated BP 06/30/2012 08/28/2016 Nonspecific abnormal results of thyroid function study 10/05/2007 08/28/2016 Overview: TSH 8 - Sep 2007 Essential hypertension, benign 09/02/200708/30/2011 Dysmetabolic syndrome X 09/12/2005 09/02/19 08 Other abnormal glucose 7 Overview: 123 Sep 2007 documented as of this encounter (statuses as of 01/30/2023) [facility] History of Past illness Narrative* Problem Noted Date Diagnosed Date Resolved Date Elevated BP 06/30/2012 08/28/2016 Nonspecific abnormal results of thyroid function study 10/05/2007 08/28/2016 Overview: TSH 8 - Sep 2007 Essential hypertension, benign 09/02/2007 06/30/2012 Dysmetabolic syndrome X 09/12/200508/17 Other abnormal glucose 08/28 Overview: 123 Sep 2007 documented as of this encounter (statuses as of 04/01/2023) [facility] History of Past illness Narrative* Problem Noted Date Diagnosed Date Resolved Date Elevated BP 06/30/2012 08/28/2016 Nonspecific abnormal results of thyroid function study 10/05/2007 08/28/2016 Overview: TSH 8 - Sep 2007 Essential hypertension, benign 09/02/2007 06/30/2012 Dysmetabolic syndrome X 09/12/200508/17 Other abnormal glucose 08/28 Overview: 123 Sep 2007 documented as of this encounter (statuses as of 04/01/2023) [facility] History of Past illness Narrative* Problem Noted Date Diagnosed Date Resolved Date Elevated BP 06/30/2012 08/28/2016 Nonspecific abnormal results of thyroid function study 10/05/2007 08/28/2016 Overview: TSH - Sep 2007 Essential hypertension, benign 09/02/2007 06/30/2012 Dysmetabolic syndrome X 09/12/200508/17 Other abnormal glucose 08/28 Overview: 123 Sep 2007 documented as of this encounter (statuses as of 04/03/2023) [facility] History of Past illness Narrative* Problem Noted Date Diagnosed Date Resolved Date Elevated BP 06/30/2012 08/28/2016 Nonspecific abnormal results of thyroid function study 10/05/2007 08/28/2016 Overview: TSH - Sep 2007 Essential hypertension, benign 09/02/2007 06/30/2012 Dysmetabolic syndrome X 09/12/200508/17 Other abnormal glucose 08/28 Overview: 123 Sep 2007 documented as of this encounter (statuses as of 05/05/2023) [facility] History of Past illness Narrative* Problem Noted Date Diagnosed Date Resolved Date Elevated BP 06/30/2012 08/28/2016 Nonspecific abnormal results of thyroid function study 10/05/2007 08/28/2016 Overview: TSH 8 - Sep 2007 Essential hypertension, benign 09/02/2007 06/30/2012 Dysmetabolic syndrome X 09/12/200508/17 Other abnormal glucose 08/28 Overview: 123 Sep 2007 documented as of this encounter (statuses as of 05/23/2023) [facility] History of Past illness Narrative* Problem Noted Date Diagnosed Date Resolved Date Elevated BP 06/30/2012 08/28/2016 Nonspecific abnormal results of thyroid function study 10/05/2007 08/28/2016 Overview: TSH 8 - Sep 2007 Essential hypertension, benign 09/02/2007 06/30/2012 Dysmetabolic syndrome X 09/12/200508/17 Other abnormal glucose 08/28 Overview: 123 Sep 2007 documented as of this encounter (statuses as of 05/26/2023) [facility] History of Past illness Narrative* Problem Noted Date Diagnosed Date Resolved Date Elevated BP 06/30/2012 08/28/2016 Nonspecific abnormal results of thyroid function study 10/05/2007 08/28/2016 Overview: TSH 8 - Sep 2007 Essential hypertension, benign 09/02/2007 06/30/2012 Dysmetabolic syndrome X 09/12/200508/17 Other abnormal glucose 08/28 Overview: 123 Sep 2007 documented as of this encounter (statuses as of 05/26/2023) [facility] History of Past illness Narrative* Problem Noted Date Diagnosed Date Resolved Date Elevated BP 06/30/2012 08/28/2016 Nonspecific abnormal results of thyroid function study 10/05/2007 08/28/2016 Overview: TSH 8 - Sep 2007 Essential hypertension, benign 09/02/2007 06/30/2012 Dysmetabolic syndrome X 09/12/200508/17 Other abnormal glucose 08/28 Overview: 123 Sep 2007 documented as of this encounter (statuses as of 06/25/2023) [facility] History of Past illness Narrative* Problem Noted Date Diagnosed Date Resolved Date Elevated BP 06/30/2012 08/28/2016 Nonspecific abnormal results of thyroid function study 10/05/2007 08/28/2016 Overview: TSH 8 - Sep 2007 Essential hypertension, benign 09/02/2007 06/30/2012 Dysmetabolic syndrome X 09/12/200508/17 Other abnormal glucose 08/28 Overview: 123 Sep 2007 documented as of this encounter (statuses as of 07/23/2023) [facility] History of Past illness Narrative* Problem Noted Date Diagnosed Date Resolved Date Elevated BP 06/30/2012 08/28/2016 Nonspecific abnormal results of thyroid function study 10/05/2007 08/28/2016 Overview: TSH 8 - Sep 2007 Essential hypertension, benign 09/02/2007 06/30/2012 Dysmetabolic syndrome X 09/12/200508/17 Other abnormal glucose 08/28 Overview: 123 Sep 2007 documented as of this encounter (statuses as of 10/15/2023) [facility] History of Past illness Narrative* Problem Noted Date Diagnosed Date Resolved Date Elevated BP 06/30/2012 08/28/2016 Nonspecific abnormal results of thyroid function study 10/05/2007 08/28/2016 Overview: TSH 8 - Sep 2007 Essential hypertension, benign 09/02/2007 06/30/2012 Dysmetabolic syndrome X 09/12/200508/17 Other abnormal glucose 08/28 Overview: 123 Sep 2007 documented as of this encounter (statuses as of 10/16/2023) [facility] History of Past illness Narrative* Problem Noted Date Diagnosed Date Resolved Date Elevated BP 06/30/2012 08/28/2016 Nonspecific abnormal results of thyroid function study 10/05/2007 08/28/2016 Overview: TSH 8 - Sep 2007 Essential hypertension, benign 09/02/2007 06/30/2012 Dysmetabolic syndrome X 09/12/200508/17 Other abnormal glucose 08/28 Overview: 123 Sep 2007 documented as of this encounter (statuses as of 10/29/2023) [facility] History of Past illness Narrative* Problem Noted Date Diagnosed Date Resolved Date Elevated BP 06/30/2012 08/28/2016 Nonspecific abnormal results of thyroid function study 10/05/2007 08/28/2016 Overview: TSH 8 - Sep 2007 Essential hypertension, benign 09/02/2007 06/30/2012 Dysmetabolic syndrome X 09/12/200508/17 Other abnormal glucose 08/28 Overview: 123 Sep 2007 documented as of this encounter (statuses as of 11/09/2023) [facility] History of Past illness Narrative* Problem Noted Date Diagnosed Date Resolved Date Elevated BP 06/30/2012 08/28/2016 Nonspecific abnormal results of thyroid function study 10/05/2007 08/28/2016 Overview: TSH 8 - Sep 2007 Essential hypertension, benign 09/02/2007 06/30/2012 Dysmetabolic syndrome X 09/12/200508/17 Other abnormal glucose 08/28 Overview: 123 Sep 2007 documented as of this encounter (statuses as of 11/16/2023) [facility] Diagnosis Cerebrovascular accident (CVA), unspecified mechanism (HCC)- Primary Anxiety Anxiety state, unspecified TIA (transient ischemic attack) Unspecified transient cerebral ischemia Upper back pain Type 2 diabetes mellitus without complication, without long-term current use of insulin ([facility]) [facility] Diagnosis Type 2 diabetes mellitus without complication, without long-term current use of insulin ([facility])- Primary [facility] Diagnosis Acute vaginitis Vaginitis and vulvovaginitis, unspecified Medication side effect Unspecified adverse effect of unspecified drug, medicinal and biological substance [facility] Diagnosis Arterial ischemic stroke, MCA (middle cerebral artery), left, acute (HCC)- Primary Unspecified cerebral artery occlusion with cerebral infarction Type 2 diabetes mellitus with diabetic neuropathy, without long-term current use of insulin (HCC) Mixed hyperlipidemia Ataxia Lack of coordination Essential hypertension Unspecified essential hypertension Non-compliance Personal history of noncompliance with medical treatment, presenting hazards to 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 Diagnosis Anxiety- Primary Anxiety state, unspecified Cerebrovascular accident (CVA), unspecified mechanism (HCC) TIA (transient ischemic attack) Unspecified transient cerebral ischemia Uncontrolled type 2 diabetes mellitus with hyperglycemia (HCC) Essential hypertension Unspecified essential hypertension Mixed hyperlipidemia [facility] Diagnosis Anxiety Anxiety state, unspecified [facility] Diagnosis Anxiety Anxiety state, unspecified [facility] Diagnosis Burning with urination- Primary Dysuria [facility]* Diagnosis Hematuria, unspecified type- Primary Urinary incontinence, unspecified type Vaginal yeast infection Candidiasis of vulva and vagina Musculoskeletal back pain Anxiety and depression Dysthymic disorder Essential hypertension Unspecified essential hypertension Type 2 diabetes mellitus without complication, without long-term current use of insulin ([facility]) [facility] Diagnosis Anxiety Anxiety state, unspecified [facility] Diagnosis Mixed hyperlipidemia- Primary Type 2 diabetes mellitus without complication, without long-term current use of insulin (HCC) Essential hypertension Unspecified essential hypertension Anxiety and depression Dysthymic disorder [facility] Diagnosis Burning with urination- Primary Dysuria Nasal congestion Other diseases of nasal cavity and sinuses [facility]* Diagnosis Encounter for screening mammogram for breast cancer [facility] Diagnosis Anxiety and depression- Primary Dysthymic disorder Mixed hyperlipidemia Essential hypertension Unspecified essential hypertension Type 2 diabetes mellitus without complication, without long-term current use of insulin (HCC) Arterial ischemic stroke, MCA (middle cerebral artery), left, acute (HCC) Unspecified cerebral artery occlusion with cerebral infarction [facility]* Diagnosis Cerebral infarction, unspecified mechanism (HCC)- Primary Transient cerebral ischemia, unspecified type [facility] this [facility] noteNo assessment information availableWUniversity [facility] Work Phone: Evaluation note* Diagnosis Anxiety Anxiety state, unspecified [facility] this [facility]* Diagnosis Type 2 diabetes mellitus without complication, without long-term current use of insulin (HCC)- Primary Anxiety and depression Dysthymic disorder Essential hypertension Unspecified essential hypertension Mixed hyperlipidemia [facility] Diagnosis Anxiety Anxiety state, unspecified [facility]* Diagnosis Dysuria- Primary Glucosuria Glycosuria [facility]* Diagnosis Type 2 diabetes mellitus with diabetic neuropathy, without long-term current use of insulin (HCC)- Primary Anxiety and depression Dysthymic disorder Essential hypertension Unspecified essential hypertension Mixed hyperlipidemia Arterial ischemic stroke, MCA (middle cerebral artery), left, acute (HCC) Unspecified cerebral artery occlusion with cerebral infarction Lipoma of right lower extremity Leg cramping Cramp of limb [facility] Diagnosis Burning with urination- Primary Dysuria Glucosuria Glycosuria Elevated blood pressure reading without diagnosis of hypertension [facility] Diagnosis Anxiety Anxiety state, unspecified [facility] Diagnosis Anxiety and depression- Primary Dysthymic disorder Uncontrolled type 2 diabetes mellitus with hyperglycemia (HCC) Essential hypertension Unspecified essential hypertension Mixed hyperlipidemia Arterial ischemic stroke, MCA (middle cerebral artery), left, acute (HCC) Unspecified cerebral artery occlusion with cerebral infarction [facility]* Diagnosis Uncontrolled type 2 diabetes mellitus with hyperglycemia (HCC) [facility] Diagnosis Anxiety Anxiety state, unspecified 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 Diagnosis Anxiety Anxiety state, unspecified [facility] Diagnosis Anxiety and depression- Primary Dysthymic disorder Mixed hyperlipidemia Essential hypertension Unspecified essential hypertension History of stroke Transient ischemic attack (TIA), and cerebral infarction without residual deficits Type 2 diabetes mellitus with diabetic neuropathy, without long-term current use of insulin (HCC) Nodule of skin of right lower extremity Leg pain, bilateral Pain in limb Uncontrolled type 2 diabetes mellitus with hyperglycemia (HCC) Major depressive disorder, recurrent, mild (HCC) Major depressive disorder, recurrent episode, mild [facility] Diagnosis Anxiety Anxiety state, unspecified [facility] Diagnosis Uncontrolled type 2 diabetes mellitus with hyperglycemia (HCC)- Primary [facility] Diagnosis Anxiety and depression- Primary Dysthymic disorder [facility] Diagnosis Uncontrolled type 2 diabetes mellitus with hyperglycemia (HCC) [facility] Diagnosis Encounter for screening mammogram for breast cancer [facility] Diagnosis Type 2 diabetes mellitus with diabetic neuropathy, without long-term current use of insulin (HCC)- Primary Mixed hyperlipidemia Essential hypertension Unspecified essential hypertension Anxiety and depression Dysthymic disorder Encounter for screening mammogram for malignant neoplasm of breast Other screening mammogram Allergy, initial encounter Uncontrolled type 2 diabetes mellitus with hyperglycemia (HCC) [facility] Anxiety Anxiety state, unspecified [facility] Diagnosis Uncontrolled type 2 diabetes mellitus with hyperglycemia (HCC)- Primary [facility] Diagnosis Acute cough- Primary Bacterial pneumonia Bacterial pneumonia, unspecified [facility] Diagnosis Major depressive disorder, recurrent, mild (HCC)- Primary Major depressive disorder, recurrent episode, mild [facility] Diagnosis Vitamin D deficiency- Primary Unspecified vitamin D deficiency [facility] Diagnosis Bacterial pneumonia- Primary Bacterial pneumonia, unspecified [facility] Diagnosis Uncontrolled type 2 diabetes mellitus with hyperglycemia (HCC)- Primary Urinary frequency Mixed hyperlipidemia Anxiety and depression Dysthymic disorder Essential hypertension Unspecified essential hypertension Bacterial pneumonia Bacterial pneumonia, unspecified Vaginal yeast infection Candidiasis of vulva and vagina Class 2 severe obesity with serious comorbidity and body mass index (BMI) of 35.0 to 35.9 in adult, unspecified obesity type (HCC) documented in this encounter [facility]* Diagnosis Acute cough- Primary Rhinosinusitis Unspecified sinusitis (chronic) Acute cough documented in this encounter [facility] note* Diagnosis Acute cough documented in this encounter [facility] note* Diagnosis Type 2 diabetes mellitus with diabetic neuropathy, without long-term current use of insulin (HCC)- Primary Anxiety Anxiety state, unspecified Major depressive disorder, recurrent, mild (HCC) Major depressive disorder, recurrent episode, mild Essential hypertension Unspecified essential hypertension Mixed hyperlipidemia Vitamin D deficiency Unspecified vitamin D deficiency History of stroke Transient ischemic attack (TIA), and cerebral infarction without residual deficits Class 2 severe obesity with serious comorbidity and body mass index (BMI) of 35.0 to 35.9 in adult, unspecified obesity type (HCC) Leg pain, bilateral Pain in limb documented in this encounter [facility] note* Diagnosis Anxiety and depression- Primary Dysthymic disorder documented in this encounter [facility] note* Diagnosis Viral URI with cough- Primary Acute upper respiratory infections of unspecified site Sore throat Acute pharyngitis Heart murmur Undiagnosed cardiac murmurs documented in this encounter [facility] note* Diagnosis Pharyngitis, unspecified etiology- Primary Bacterial sinusitis Unspecified sinusitis (chronic) documented in this encounter [facility] note* Diagnosis Vaginal yeast infection- Primary Candidiasis of vulva and vagina documented in this encounter [facility] note* Diagnosis Anxiety and depression Dysthymic disorder documented in this encounter [facility] note* Diagnosis Type 2 diabetes mellitus with hyperglycemia, unspecified whether extermination supervisor insulin use (HCC)- Primary Essential hypertension Unspecified essential hypertension documented in this encounter [facility] note* Diagnosis Cellulitis of antihelix of left ear- Primary documented in this encounter [facility] note* Diagnosis Uncontrolled type 2 diabetes mellitus with hyperglycemia (HCC)- Primary Mixed hyperlipidemia Anxiety and depression Dysthymic disorder Essential hypertension Unspecified essential hypertension documented in this encounter [facility] note* Diagnosis Uncontrolled type 2 diabetes mellitus with hyperglycemia (HCC) documented in this encounter [facility] for referral (narrative)* Diagnostic Procedure Only (Routine) - Pending Review Specialty Diagnoses / Procedures Referred By Cindy ledbetter [facility] Diagnoses Cerebrovascular accident (CVA), unspecified mechanism (HCC) Procedures HOME SLEEP APNEA TEST (HSAT) SLEEP STD AIRFLOW HRT RATE&O2 SAT EFFORT UNATT Chelsy Cleveland MD [address] [place] [address] [facility] [place] [address] [place] [address] Referral ID Status Reason Start Date Expiration Date Visits Requested Visits Authorized [id number] Pending Review Auto-Generat ed Referral 12/02/2021 12/02/2022 1 1 * MRI/CT (Routine) - Pending Review Specialty Diagnoses / Procedures Referred By Cindy ledbetter Referred To Contact MR IMAGING Diagnoses Ataxia Procedures MRA CAROTID WO IVCON MRA, NECK; W/O CONTRAST Chelsy Cleveland MD [address] [place] [address] Mr Imaging Referral ID Status Reason Start Date Expiration Date Visits Requested Visits Authorized [id number] Pending Review Auto-Generat ed Referral 12/02/2021 01/01/2023 1 1 * Consult, Test, Treat (Routine) - Authorized Specialty Diagnoses / Procedures Referred By Cindy ledbetter Referred To Contact Endocrinology Diagnoses Cerebrovascular accident (CVA), unspecified mechanism (HCC) Type 2 diabetes mellitus with diabetic neuropathy, without long-term current use of insulin (HCC) Mixed hyperlipidemia Procedures CONSULT TO ENDOCRINOLOGY OFFICE/OUTPATIENT NEW HIGH MDM 60-74 MINUTES Chelsy Cleveland MD [address] [place] [address] Referral ID Status Reason Start Date Expiration Date Visits Requested Visits Authorized [id number] Authorized PCP Requested Referral 12/02/2021 12/02/2022 1 1 * Outpatient Procedure (Routine) - Pending Review Specialty Diagnoses / Procedures Referred By Contac t Referred To Contact [facility] [place] Diagnoses Cerebrovascular accident (CVA), unspecified mechanism (HCC) Type 2 diabetes mellitus with diabetic neuropathy, without long-term current use of insulin (HCC) Mixed hyperlipidemia Procedures ECHO ECHO TTHRC R-T 2D W/WOM-MODE COMPL SPEC&COLR D Chelsy Cleveland MD [address] [facility] [place] [address] [facility] [place] [address] Referral ID Status Reason Start Date Expiration Date Visits Requested Visits Authorized [id number] Pending Review Auto-Generat ed Referral 12/02/2021 12/02/2022 1 1 [facility] for referral (narrative)* Diagnostic Procedure Only (Routine) - Pending Review Specialty Diagnoses / Procedures Referred By Cindy ledbetter Referred To Contact [facility] Diagnoses Encounter for screening mammogram for breast cancer Procedures TONE SCREENING SCREENING MAMMOGRAPHY BI 2-VIEW BREAST INC CAD Janet Little MD [address] [place] [address] [facility] [address] [place] [id number] Referral ID Status Reason Start Date Expiration Date Visits Requested Visits Authorized [id number] Pending Review Auto-Generat ed Referral 08/08/2023 1 1 [facility] for referral (narrative)* Diagnostic Procedure Only (Routine) - Closed Specialty Diagnoses / Procedures Referred By Cindy ledbetter Referred To Contact CT IMAGING Diagnoses Transient cerebral ischemia, unspecified type Cerebral infarction, unspecified mechanism (HCC) Procedures CTA NECK W IVCON CT ANGIOGRAPHY NECK W/CONTRAST/NONCONTRAST Janet Little MD [address] [place] [address] Ct Imaging Referral ID Status Reason Start Date Expiration Date Visits Re quested Visits Authorized [id number] Closed 10/18/2021 11/17/2021 1 1 * Diagnostic Procedure Only (Routine) - Closed Specialty Diagnoses / Procedures Referred By Cindy ledbetter Referred To Contact CT IMAGING Diagnoses Transient cerebral ischemia, unspecified type Cerebral infarction, unspecified mechanism (HCC) Procedures CTA HEAD W IVCON CT ANGIOGRAPHY HEAD W/CONTRAST/NONCONTRAST Janet Little MD [address] [place] [address] Ct Imaging Referral ID Status Reason Start Date Expiration Date Visits Re quested Visits Authorized [id number] Closed 10/18/2021 11/17/2021 1 1 [facility] for referral (narrative)* Diagnostic Procedure Only (Routine) - Pending Review Specialty Diagnoses / Procedures Referred By Cindy ledbetter Referred To Contact [facility] Diagnoses Encounter for screening mammogram for breast cancer Procedures TONE SCREENING W JONATAN SCREENING DIGITAL BREAST TOMOSYNTHESIS BI SCREENING MAMMOGRAPHY BI 2-VIEW BREAST INC Janet Gomez MD [address] [place] [address] [facility] [address] [place] [address] Referral ID Status Reason Start Date Expiration Date Visits Requested Visits Authorized [id number] Pending Review Auto-Generat ed Referral 02/10/2024 03/11/2025 1 1 [facility] for referral (narrative)* Diagnostic Procedure Only (Routine) - New Request Specialty Diagnoses / Procedures Referred By Cindy ledbetter Referred To Contact [facility] Diagnoses Encounter for screening mammogram for malignant neoplasm of breast Procedures TONE SCREENING SCREENING MAMMOGRAPHY BI 2-VIEW BREAST INC Janet Gomez MD [address] [place] [address] [facility] [address] [place] [address] Referral ID Status Reason Start Date Expiration Date Visits Requested Visits Authorized [id number] New Request Auto-Generat ed Referral 03/08/2024 04/07/[address] [facility] Reason for Referral Specialty Diagnoses / Procedures Referred By Contac t Referred To Contact Neurology Diagnoses Cerebrovascular accident (CVA), unspecified mechanism (HCC) Procedures CONSULT TO NEUROLOGY OFFICE/OUTPATIENT NEW HIGH MDM 60-74 MINUTES Janet Little MD [address] [place] [address] Referral ID Status Reason Start Date Expiration Date Visits Requested Visits Authorized [id number] Authorized PCP Requested Referral 11/13/2021 11/13/2022 1 1 Specialty Diagnoses / Procedures Referred By Cindy t Referred To Contact Diagnoses Uncontrolled type 2 diabetes mellitus with hyperglycemia (HCC) Janet Little MD [address] [place] [address] Referral ID Status Reason Start Date Expiration Date Visits Re quested Visits Authorized [id number] Closed 1 1 Specialty Diagnoses / Procedures Referred By Contac t Referred To Contact [facility] Diagnoses Leg pain, bilateral Procedures CONSULT TO PHYSICAL THERAPY PHYSICAL THERAPY EVALUATION HIGH COMPLEX 45 MINS Janet Little MD [address] [place] [address] [facility] [place] [address] [place] [address] Referral ID Status Reason Start Date Expiration Date Visits Requested Visits Authorized [id number] Authorized Auto-Generat ed Referral 08/17/2023 08/16/2024 1 1 Family History Relationship Condition Age at Onset Recorded Date/T [place] Unknown Family History?- Unknown November 11, 2016 12:58am Family History?- Unknown March 2:31am Advance Directives Advance Directive Response Recorded Date/ Time Advance Directives Yes August 29, 2016 3:30am Living Will Yes July 02 7:03pm Power of Life Underwriter Yes July 02, 2021 7:03pm Summary Purpose Additional Source Comments Source Comments (unrecognize d section and content) In the event this informatio n is protected by the Federal Confidentiality of Alcohol and Drug Abuse Patient Records regulations: The Federal rules restrict any use of the information to criminally investigate or prosecute any alcohol or drug abuse patient.[facility] the event this information is protected by the Federal Confidentiality of Alcohol and Drug Abuse Patient Records regulations: The Federal rules restrict any use of the information to criminally investigate or prosecute any alcohol or drug abuse patient.[facility] the event this information is protected by the Federal Confidentiality of Alcohol and Drug Abuse Patient Records regulations: The Federal rules restrict any use of the information to criminally investigate or prosecute any alcohol or drug abuse patient.[facility] the event this information is protected by the Federal Confidentiality of Alcohol and Drug Abuse Patient Records regulations: The Federal rules restrict any use of the information to criminally investigate or prosecute any alcohol or drug abuse patient.[facility] the event this information is protected by the Federal Confidentiality of Alcohol and Drug Abuse Patient Records regulations: The Federal rules restrict any use of the information to criminally investigate or prosecute any alcohol or drug abuse patient.[facility]In the event this information is protected by the Federal Confidentiality of Alcohol and Drug Abuse Patient Records regulations: The Federal rules restrict any use of the information to criminally investigate or prosecute any alcohol or drug abuse patient.[facility] the event this information is protected by the Federal Confidentiality of Alcohol and Drug Abuse Patient Records regulations: The Federal rules restrict any use of the information to criminally investigate or prosecute any alcohol or drug abuse patient.[facility]In the event this information is protected by the Federal Confidentiality of Alcohol and Drug Abuse Patient Records regulations: The Federal rules restrict any use of the information to criminally investigate or prosecute any alcohol or drug abuse patient.[facility] the event this information is protected by the Federal Confidentiality of Alcohol and Drug Abuse Patient Records regulations: The Federal rules restrict any use of the information to criminally investigate or prosecute any alcohol or drug abuse patient.[facility] the event this information is protected by the Federal Confidentiality of Alcohol and Drug Abuse Patient Records regulations: The Federal rules restrict any use of the information to criminally investigate or prosecute any alcohol or drug abuse patient.[facility]In the event this information is protected by the Federal Confidentiality of Alcohol and Drug Abuse Patient Records regulations: The Federal rules restrict any use of the information to criminally investigate or prosecute any alcohol or drug abuse patient.[facility]In the event this information is protected by the Federal Confidentiality of Alcohol and Drug Abuse Patient Records regulations: The Federal rules restrict any use of the information to criminally investigate or prosecute any alcohol or drug abuse patient.[facility]In the event this information is protected by the Federal Confidentiality of Alcohol and Drug Abuse Patient Records regulations: The Federal rules restrict any use of the information to criminally investigate or prosecute any alcohol or drug abuse patient.[facility]In the event this information is protected by the Federal Confidentiality of Alcohol and Drug Abuse Patient Records regulations: The Federal rules restrict any use of the information to criminally investigate or prosecute any alcohol or drug abuse patient.[facility]In the event this information is protected by the Federal Confidentiality of Alcohol and Drug Abuse Patient Records regulations: The Federal rules restrict any use of the information to criminally investigate or prosecute any alcohol or drug abuse patient.[facility]In the event this information is protected by the Federal Confidentiality of Alcohol and Drug Abuse Patient Records regulations: The Federal rules restrict any use of the information to criminally investigate or prosecute any alcohol or drug abuse patient.[facility]In the event this information is protected by the Federal Confidentiality of Alcohol and Drug Abuse Patient Records regulations: The Federal rules restrict any use of the information to criminally investigate or prosecute any alcohol or drug abuse patient.[facility]In the event this information is protected by the Federal Confidentiality of Alcohol and Drug Abuse Patient Records regulations: The Federal rules restrict any use of the information to criminally investigate or prosecute any alcohol or drug abuse patient.[facility] HospitalIn the event this information is protected by the Federal Confidentiality of Alcohol and Drug Abuse Patient Records regulations: The Federal rules restrict any use of the information to criminally investigate or prosecute any alcohol or drug abuse patient.[facility]In the event this information is protected by the Federal Confidentiality of Alcohol and Drug Abuse Patient Records regulations: The Federal rules restrict any use of the information to criminally investigate or prosecute any alcohol or drug abuse patient.[facility] HospitalIn the event this information is protected by the Federal Confidentiality of Alcohol and Drug Abuse Patient Records regulations: The Federal rules restrict any use of the information to criminally investigate or prosecute any alcohol or drug abuse patient.[facility] HospitalIn the event this information is protected by the Federal Confidentiality of Alcohol and Drug Abuse Patient Records regulations: The Federal rules restrict any use of the information to criminally investigate or prosecute any alcohol or drug abuse patient.[facility] HospitalIn the event this information is protected by the Federal Confidentiality of Alcohol and Drug Abuse Patient Records regulations: The Federal rules restrict any use of the information to criminally investigate or prosecute any alcohol or drug abuse patient.[facility] HospitalIn the event this information is protected by the Federal Confidentiality of Alcohol and Drug Abuse Patient Records regulations: The Federal rules restrict any use of the information to criminally investigate or prosecute any alcohol or drug abuse patient.[facility]In the event this information is protected by the Federal Confidentiality of Alcohol and Drug Abuse Patient Records regulations: The Federal rules restrict any use of the information to criminally investigate or prosecute any alcohol or drug abuse patient.[facility] HospitalIn the event this information is protected by the Federal Confidentiality of Alcohol and Drug Abuse Patient Records regulations: The Federal rules restrict any use of the information to criminally investigate or prosecute any alcohol or drug abuse patient.[facility] HospitalIn the event this information is protected by the Federal Confidentiality of Alcohol and Drug Abuse Patient Records regulations: The Federal rules restrict any use of the information to criminally investigate or prosecute any alcohol or drug abuse patient.[facility] HospitalIn the event this information is protected by the Federal Confidentiality of Alcohol and Drug Abuse Patient Records regulations: The Federal rules restrict any use of the information to criminally investigate or prosecute any alcohol or drug abuse patient.[facility] HospitalIn the event this information is protected by the Federal Confidentiality of Alcohol and Drug Abuse Patient Records regulations: The Federal rules restrict any use of the information to criminally investigate or prosecute any alcohol or drug abuse patient.[facility] HospitalIn the event this information is protected by the Federal Confidentiality of Alcohol and Drug Abuse Patient Records regulations: The Federal rules restrict any use of the information to criminally investigate or prosecute any alcohol or drug abuse patient.[facility] HospitalIn the event this information is protected by the Federal Confidentiality of Alcohol and Drug Abuse Patient Records regulations: The Federal rules restrict any use of the information to criminally investigate or prosecute any alcohol or drug abuse patient.[facility] HospitalIn the event this information is protected by the Federal Confidentiality of Alcohol and Drug Abuse Patient Records regulations: The Federal rules restrict any use of the information to criminally investigate or prosecute any alcohol or drug abuse patient.[facility] HospitalIn the event this information is protected by the Federal Confidentiality of Alcohol and Drug Abuse Patient Records regulations: The Federal rules restrict any use of the information to criminally investigate or prosecute any alcohol or drug abuse patient.[facility] HospitalIn the event this information is protected by the Federal Confidentiality of Alcohol and Drug Abuse Patient Records regulations: The Federal rules restrict any use of the information to criminally investigate or prosecute any alcohol or drug abuse patient.[facility] HospitalIn the event this information is protected by the Federal Confidentiality of Alcohol and Drug Abuse Patient Records regulations: The Federal rules restrict any use of the information to criminally investigate or prosecute any alcohol or drug abuse patient.[facility] HospitalIn the event this information is protected by the Federal Confidentiality of Alcohol and Drug Abuse Patient Records regulations: The Federal rules restrict any use of the information to criminally investigate or prosecute any alcohol or drug abuse patient.[facility] HospitalIn the event this information is protected by the Federal Confidentiality of Alcohol and Drug Abuse Patient Records regulations: The Federal rules restrict any use of the information to criminally investigate or prosecute any alcohol or drug abuse patient.[facility] HospitalIn the event this information is protected by the Federal Confidentiality of Alcohol and Drug Abuse Patient Records regulations: The Federal rules restrict any use of the information to criminally investigate or prosecute any alcohol or drug abuse patient.[facility] HospitalIn the event this information is protected by the Federal Confidentiality of Alcohol and Drug Abuse Patient Records regulations: The Federal rules restrict any use of the information to criminally investigate or prosecute any alcohol or drug abuse patient.[facility] HospitalIn the event this information is protected by the Federal Confidentiality of Alcohol and Drug Abuse Patient Records regulations: The Federal rules restrict any use of the information to criminally investigate or prosecute any alcohol or drug abuse patient.[facility] HospitalIn the event this information is protected by the Federal Confidentiality of Alcohol and Drug Abuse Patient Records regulations: The Federal rules restrict any use of the information to criminally investigate or prosecute any alcohol or drug abuse patient.[facility] HospitalIn the event this information is protected by the Federal Confidentiality of Alcohol and Drug Abuse Patient Records regulations: The Federal rules restrict any use of the information to criminally investigate or prosecute any alcohol or drug abuse patient.[facility] HospitalIn the event this information is protected by the Federal Confidentiality of Alcohol and Drug Abuse Patient Records regulations: The Federal rules restrict any use of the information to criminally investigate or prosecute any alcohol or drug abuse patient.[facility] HospitalIn the event this information is protected by the Federal Confidentiality of Alcohol and Drug Abuse Patient Records regulations: The Federal rules restrict any use of the information to criminally investigate or prosecute any alcohol or drug abuse patient.[facility] HospitalIn the event this information is protected by the Federal Confidentiality of Alcohol and Drug Abuse Patient Records regulations: The Federal rules restrict any use of the information to criminally investigate or prosecute any alcohol or drug abuse patient.[facility] HospitalIn the event this information is protected by the Federal Confidentiality of Alcohol and Drug Abuse Patient Records regulations: The Federal rules restrict any use of the information to criminally investigate or prosecute any alcohol or drug abuse patient.[facility] HospitalIn the event this information is protected by the Federal Confidentiality of Alcohol and Drug Abuse Patient Records regulations: The Federal rules restrict any use of the information to criminally investigate or prosecute any alcohol or drug abuse patient.[facility] HospitalIn the event this information is protected by the Federal Confidentiality of Alcohol and Drug Abuse Patient Records regulations: The Federal rules restrict any use of the information to criminally investigate or prosecute any alcohol or drug abuse patient.[facility] HospitalIn the event this information is protected by the Federal Confidentiality of Alcohol and Drug Abuse Patient Records regulations: The Federal rules restrict any use of the information to criminally investigate or prosecute any alcohol or drug abuse patient.[facility]In the event this information is protected by the Federal Confidentiality of Alcohol and Drug Abuse Patient Records regulations: The Federal rules restrict any use of the information to criminally investigate or prosecute any alcohol or drug abuse patient.[facility] HospitalIn the event this information is protected by the Federal Confidentiality of Alcohol and Drug Abuse Patient Records regulations: The Federal rules restrict any use of the information to criminally investigate or prosecute any alcohol or drug abuse patient.[facility] HospitalIn the event this information is protected by the Federal Confidentiality of Alcohol and Drug Abuse Patient Records regulations: The Federal rules restrict any use of the information to criminally investigate or prosecute any alcohol or drug abuse patient.[facility] HospitalIn the event this information is protected by the Federal Confidentiality of Alcohol and Drug Abuse Patient Records regulations: The Federal rules restrict any use of the information to criminally investigate or prosecute any alcohol or drug abuse patient.[facility]In the event this information is protected by the Federal Confidentiality of Alcohol and Drug Abuse Patient Records regulations: The Federal rules restrict any use of the information to criminally investigate or prosecute any alcohol or drug abuse patient.[facility]In the event this information is protected by the Federal Confidentiality of Alcohol and Drug Abuse Patient Records regulations: The Federal rules restrict any use of the information to criminally investigate or prosecute any alcohol or drug abuse patient.[facility] HospitalIn the event this information is protected by the Federal Confidentiality of Alcohol and Drug Abuse Patient Records regulations: The Federal rules restrict any use of the information to criminally investigate or prosecute any alcohol or drug abuse patient.[facility] HospitalIn the event this information is protected by the Federal Confidentiality of Alcohol and Drug Abuse Patient Records regulations: The Federal rules restrict any use of the information to criminally investigate or prosecute any alcohol or drug abuse patient.[facility] HospitalIn the event this information is protected by the Federal Confidentiality of Alcohol and Drug Abuse Patient Records regulations: The Federal rules restrict any use of the information to criminally investigate or prosecute any alcohol or drug abuse patient.[facility]In the event this information is protected by the Federal Confidentiality of Alcohol and Drug Abuse Patient Records regulations: The Federal rules restrict any use of the information to criminally investigate or prosecute any alcohol or drug abuse patient.[facility]In the event this information is protected by the Federal Confidentiality of Alcohol and Drug Abuse Patient Records regulations: The Federal rules restrict any use of the information to criminally investigate or prosecute any alcohol or drug abuse patient.[facility] HospitalIn the event this information is protected by the Federal Confidentiality of Alcohol and Drug Abuse Patient Records regulations: The Federal rules restrict any use of the information to criminally investigate or prosecute any alcohol or drug abuse patient.[facility] HospitalIn the event this information is protected by the Federal Confidentiality of Alcohol and Drug Abuse Patient Records regulations: The Federal rules restrict any use of the information to criminally investigate or prosecute any alcohol or drug abuse patient.[facility]In the event this information is protected by the Federal Confidentiality of Alcohol and Drug Abuse Patient Records regulations: The Federal rules restrict any use of the information to criminally investigate or prosecute any alcohol or drug abuse patient.[facility] HospitalIn the event this information is protected by the Federal Confidentiality of Alcohol and Drug Abuse Patient Records regulations: The Federal rules restrict any use of the information to criminally investigate or prosecute any alcohol or drug abuse patient.[facility]In the event this information is protected by the Federal Confidentiality of Alcohol and Drug Abuse Patient Records regulations: The Federal rules restrict any use of the information to criminally investigate or prosecute any alcohol or drug abuse patient.[facility]In the event this information is protected by the Federal Confidentiality of Alcohol and Drug Abuse Patient Records regulations: The Federal rules restrict any use of the information to criminally investigate or prosecute any alcohol or drug abuse patient.[facility] HospitalIn the event this information is protected by the Federal Confidentiality of Alcohol and Drug Abuse Patient Records regulations: The Federal rules restrict any use of the information to criminally investigate or prosecute any alcohol or drug abuse patient.[facility] HospitalIn the event this information is protected by the Federal Confidentiality of Alcohol and Drug Abuse Patient Records regulations: The Federal rules restrict any use of the information to criminally investigate or prosecute any alcohol or drug abuse patient.[facility] HospitalIn the event this information is protected by the Federal Confidentiality of Alcohol and Drug Abuse Patient Records regulations: The Federal rules restrict any use of the information to criminally investigate or prosecute any alcohol or drug abuse patient.[facility] HospitalIn the event this information is protected by the Federal Confidentiality of Alcohol and Drug Abuse Patient Records regulations: The Federal rules restrict any use of the information to criminally investigate or prosecute any alcohol or drug abuse patient.[facility] HospitalIn the event this information is protected by the Federal Confidentiality of Alcohol and Drug Abuse Patient Records regulations: The Federal rules restrict any use of the information to criminally investigate or prosecute any alcohol or drug abuse patient.[facility] HospitalIn the event this information is protected by the Federal Confidentiality of Alcohol and Drug Abuse Patient Records regulations: The Federal rules restrict any use of the information to criminally investigate or prosecute any alcohol or drug abuse patient.[facility] HospitalIn the event this information is protected by the Federal Confidentiality of Alcohol and Drug Abuse Patient Records regulations: The Federal rules restrict any use of the information to criminally investigate or prosecute any alcohol or drug abuse patient.[facility] HospitalIn the event this information is protected by the Federal Confidentiality of Alcohol and Drug Abuse Patient Records regulations: The Federal rules restrict any use of the information to criminally investigate or prosecute any alcohol or drug abuse patient.[facility] HospitalIn the event this information is protected by the Federal Confidentiality of Alcohol and Drug Abuse Patient Records regulations: The Federal rules restrict any use of the information to criminally investigate or prosecute any alcohol or drug abuse patient.[facility] HospitalIn the event this information is protected by the Federal Confidentiality of Alcohol and Drug Abuse Patient Records regulations: The Federal rules restrict any use of the information to criminally investigate or prosecute any alcohol or drug abuse patient.[facility] HospitalIn the event this information is protected by the Federal Confidentiality of Alcohol and Drug Abuse Patient Records regulations: The Federal rules restrict any use of the information to criminally investigate or prosecute any alcohol or drug abuse patient.[facility] HospitalIn the event this information is protected by the Federal Confidentiality of Alcohol and Drug Abuse Patient Records regulations: The Federal rules restrict any use of the information to criminally investigate or prosecute any alcohol or drug abuse patient.[facility] HospitalIn the event this information is protected by the Federal Confidentiality of Alcohol and Drug Abuse Patient Records regulations: The Federal rules restrict any use of the information to criminally investigate or prosecute any alcohol or drug abuse patient.[facility] HospitalIn the event this information is protected by the Federal Confidentiality of Alcohol and Drug Abuse Patient Records regulations: The Federal rules restrict any use of the information to criminally investigate or prosecute any alcohol or drug abuse patient.[facility] HospitalIn the event this information is protected by the Federal Confidentiality of Alcohol and Drug Abuse Patient Records regulations: The Federal rules restrict any use of the information to criminally investigate or prosecute any alcohol or drug abuse patient.[facility] HospitalIn the event this information is protected by the Federal Confidentiality of Alcohol and Drug Abuse Patient Records regulations: The Federal rules restrict any use of the information to criminally investigate or prosecute any alcohol or drug abuse patient.[facility] HospitalIn the event this information is protected by the Federal Confidentiality of Alcohol and Drug Abuse Patient Records regulations: The Federal rules restrict any use of the information to criminally investigate or prosecute any alcohol or drug abuse patient.[facility] HospitalIn the event this information is protected by the Federal Confidentiality of Alcohol and Drug Abuse Patient Records regulations: The Federal rules restrict any use of the information to criminally investigate or prosecute any alcohol or drug abuse patient.[facility] HospitalIn the event this information is protected by the Federal Confidentiality of Alcohol and Drug Abuse Patient Records regulations: The Federal rules restrict any use of the information to criminally investigate or prosecute any alcohol or drug abuse patient.[facility] HospitalIn the event this information is protected by the Federal Confidentiality of Alcohol and Drug Abuse Patient Records regulations: The Federal rules restrict any use of the information to criminally investigate or prosecute any alcohol or drug abuse patient.[facility] HospitalIn the event this information is protected by the Federal Confidentiality of Alcohol and Drug Abuse Patient Records regulations: The Federal rules restrict any use of the information to criminally investigate or prosecute any alcohol or drug abuse patient.[facility] HospitalIn the event this information is protected by the Federal Confidentiality of Alcohol and Drug Abuse Patient Records regulations: The Federal rules restrict any use of the information to criminally investigate or prosecute any alcohol or drug abuse patient.[facility] Reason for Visit (unrecogniz ed section and content) Reason Comments Follow Up Reason Onset Date Comments Population Health Navigation Outreach 11/19/2021 [employer] Care Gaps Reason Onset Date Comments Refill Request 11/26/2021 Reason Comments New Patient Evaluation Specialty Diagnoses / Procedures Referred By Contac t Referred To Contact Neurology Diagnoses Cerebrovascular accident (CVA), unspecified mechanism (HCC) Procedures CONSULT TO NEUROLOGY OFFICE/OUTPATIENT NEW HIGH MDM 60-74 MINUTES Janet Little MD [address] [place] [address] Referral ID Status Reason Start Date Expiration Date V isits Requested Visits Authorized [id number] Closed PCP Requested Referral 11/13/2021 11/13/2022 1 1 Reason Comments Results Reason Comments Anxiety Reason Onset Date Comments Refill Request 12/24/2021 Reason Comments Patient Question requesting refill Reason Comments Opened In Error Reason Comments Urinary Problem burning with urinati on x 1 week Reason Comments Recheck Reason Onset Date Comments Refill Request 01/27/2022 Reason Onset Date Comments Refill Request 03/03/2022 Reason Onset Date Comments Medication Request 03/11/2022 Reason Comments F/U 3 Month Reason Comments UTI Burning, pressure, f requency in urination. Has been taking AZO Reason Comments Medication Problem Reason Comments Results Reason Onset Date Comments Population Health Navigation Outreach 10/03/2022 [employer] care gaps Reason Onset Date Comments Refill Request 10/17/2022 Reason Comments Follow Up Reason Onset Date Comments Refill Request 11/24/2022 Reason Comments Rx refill; not on current med list Reason Comments UTI Reason Comments Urinary Frequency Frequency and burnin g x 3 days Reason Onset Date Comments Refill Request 03/31/2023 Reason Comments Urinary Problem Burning and pain x 1 wk Reason Comments Patient Question Reason Comments F/U 3 Month Reason Comments Med Change Request Reason Onset Date Comments Refill Request 07/22/2023 Reason Comments Diabetes Reason Comments Medication Question Reason Comments Refill Request Reason Comments Patient Question Medication Question Reason Onset Date Comments Refill Request Refill Request 07/23/2023 Reason Comments handicap placard Reason Onset Date Comments Refill Request 04/08/2024 Reason Comments new information Reason Comments Cough Reason Comments Cough Chest congestion x1. 5 weeks, low fever x4 days Reason Comments Lab order request Reason Comments Results Vitamin d Reason Comments Chest Congestion cough, + pneumonia 1 0/10 given zpak finished 6 days ago Reason Onset Date Comments Population Health Navigation Outreach 07/26/2024 [employer]/Work[employer]/Phyllis Reason Comments Sinus Problem Chest congestion, co ugh, BEDOYA x 2.5 months Reason Onset Date Comments Refill Request 09/13/2024 Reason Onset Date Comments Refill Request 09/29/2024 Reason Comments Sore Throat headache, nasal val estion, drainage, cough x 1 week Reason Comments Illness Reason Comments Medication Request Reason Onset Date Comments Population Health Navigation Outreach 12/21/2024 Chito otto Reason Onset Date Comments Refill Request 01/10/2025 Reason Comments Patient Question Orders Reason Onset Date Comments Allied Health Visit 02/07/2025 [facility] Reason Comments Ear Pain Left ear pain around piercing x 2 weeks Reason Onset Date Comments Refill Request 03/28/2025 Care Teams (unrecognized sec tion and content) Express Clerk Relationship Specialty Start Date End Date Janet Little MD [address] [place] [address] PCP - General 12/13/09 Express Clerk Relationship Specialty Start Date End Date Janet Little MD [address] [place] [address] PCP - General 12/13/09 Express Clerk Relationship Specialty Start Date End Date Janet Little MD [address] [place] [address] PCP - General 12/13/09 Express Clerk Relationship Specialty Start Date End Date Janet Little MD [address] [place] [address] PCP - General 12/13/09 Express Clerk Relationship Specialty Start Date End Date Janet Little MD [address] [place] [address] PCP - General 12/13/09 Express Clerk Relationship Specialty Start Date End Date Janet Little MD [address] [facility] [place] [address] PCP - General 12/13/09 Express Clerk Relationship Specialty Start Date End Date Janet Little MD [address] [place] [address] PCP - General 12/13/09 Express Clerk Relationship Specialty Start Date End Date Janet Little MD [address] [facility] [place] [address] PCP - General 12/13/09 Express Clerk Relationship Specialty Start Date End Date Janet Little MD [address] [facility] [place] [address] PCP - General 12/13/09 Express Clerk Relationship Specialty Start Date End Date Janet Little MD [address] [facility] [place] [address] PCP - General 12/13/09 Express Clerk Relationship Specialty Start Date End Date Janet Little MD [address] [facility] [place] [address] PCP - General 12/13/09 Express Clerk Relationship Specialty Start Date End Date Janet Little MD [address] [facility] [place] [address] PCP - General 12/13/09 Express Clerk Relationship Specialty Start Date End Date Janet Little MD [address] [facility] [place] [address] PCP - General 12/13/09 Express Clerk Relationship Specialty Start Date End Date Janet Little MD [address] [facility] [place] [address] PCP - General 12/13/09 Team Status: Active Member Role Status Dates Dr. Janet Little MD Family Provider Active Dr. Janet Little MD Primary Care Provider Active Team Status: Inactive Member Role Status Dates Dr. Janet Little MD Primary Care Provider Active Dr. Caron Hampton DO Attending Provider Active Express Clerk Relationship Specialty Start Date End Date Janet Little MD [address] [facility] [place] [address] PCP - General 12/13/09 Express Clerk Relationship Specialty Start Date End Date Janet Little MD [address] [facility] [place] [address] PCP - General 12/13/09 Express Clerk Relationship Specialty Start Date End Date Janet Little MD [address] [facility] [place] [address] PCP - General 12/13/09 Express Clerk Relationship Specialty Start Date End Date Janet Little MD [address] [facility] [place] [address] PCP - General 12/13/09 Express Clerk Relationship Specialty Start Date End Date Janet Little MD [address] [facility] [place] [address] PCP - General 12/13/09 Express Clerk Relationship Specialty Start Date End Date Janet Little MD [address] [facility] [place] [address] PCP - General 12/13/09 Express Clerk Relationship Specialty Start Date End Date Janet Little MD [address] [facility] [place] [address] PCP - General 12/13/09 Express Clerk Relationship Specialty Start Date End Date Janet Little MD [address] [facility] [place] [address] PCP - General 12/13/09 Express Clerk Relationship Specialty Start Date End Date Janet Little MD [address] [facility] [place] [address] PCP - General 12/13/09 Express Clerk Relationship Specialty Start Date End Date Janet Little MD [address] [facility] [place] [address] PCP - General 12/13/09 Express Clerk Relationship Specialty Start Date End Date Janet Little MD [address] [facility] [place] [address] PCP - General 12/13/09 Express Clerk Relationship Specialty Start Date End Date Janet Little MD [address] [facility] [place] [address] PCP - General 12/13/09 Darcy Palma, [facility] [address] [place] [address] Pharmacist Pharmacy 09/10/23 Express Clerk Relationship Specialty Start Date End Date Janet Little MD [address] [facility] [place] [address] PCP - General 12/13/09 Darcy Palma, [facility] [address] [place] [address] Pharmacist Pharmacy 09/10/23 Express Clerk Relationship Specialty Start Date End Date Janet Little MD [address] [facility] [place] [address] PCP - General 12/13/09 Darcy Palma, [facility] [address] [place] [address] Pharmacist Pharmacy 09/10/23 Express Clerk Relationship Specialty Start Date End Date Janet Little MD [address] [facility] [place] [address] PCP - General 12/13/09 JoseoGumarota, [facility] [address] [place] [address] Pharmacist Pharmacy 09/10/23 Express Clerk Relationship Specialty Start Date End Date Janet Little MD [address] [place] [address] PCP - General 12/13/09 FarhadcaGumaro peñata, [facility] [address] [place] [address] Pharmacist Pharmacy 09/10/23 Express Clerk Relationship Specialty Start Date End Date Janet Little MD [address] [facility] [place] [address] PCP - General 12/13/09 Gumaro Palmata, [facility] [address] [facility] [address] Pharmacist Pharmacy 09/10/23 Express Clerk Relationship Specialty Start Date End Date Janet Little MD [address] [facility] [place] [address] PCP - General 12/13/09 Darcy Palma, [facility] [address] [place] [address] Pharmacist Pharmacy 09/10/23 Express Clerk Relationship Specialty Start Date End Date Janet Little MD [address] [facility] [place] [address] PCP - General 12/13/09 FarhadcaGumaro peñata, [facility] [address] [place] [address] Pharmacist Pharmacy 09/10/23 Express Clerk Relationship Specialty Start Date End Date Janet Little MD [address] [place] [address] PCP - General 12/13/09 FarhadcaGumaro peñata, [facility] [address] [place] [address] Pharmacist Pharmacy 09/10/23 Express Clerk Relationship Specialty Start Date End Date Janet Little MD [address] [place] [address] PCP - General 12/13/09 Gumaro Palmata, [facility] [address] [place] [address] Pharmacist Pharmacy 09/10/23 Express Clerk Relationship Specialty Start Date End Date Janet Little MD [address] [place] [address] PCP - General 12/13/09 Gumaro Palmata, [facility] [address] [place] [address] Pharmacist Pharmacy 09/10/23 Express Clerk Relationship Specialty Start Date End Date Janet Little MD [address] [place] [address] PCP - General 12/13/09 Gumaro Palmata, [facility] [address] [place] [address] Pharmacist Pharmacy 09/10/23 Express Clerk Relationship Specialty Start Date End Date Janet Little MD [address] [place] [address] PCP - General 12/13/09 Darcy Palma, [facility] [address] [facility] [address] Pharmacist Pharmacy 09/10/23 Express Clerk Relationship Specialty Start Date End Date Janet Little MD [address] [facility] [place] [address] PCP - General 12/13/09 Darcy Palma, [facility] [address] [facility] [place] [address] Pharmacist Pharmacy 09/10/23 Express Clerk Relationship Specialty Start Date End Date Janet Little MD [address] [facility] [place] [address] PCP - General 12/13/09 Gumaro Palmata, [facility] [address] [facility] [place] [address] Pharmacist Pharmacy 09/10/23 Express Clerk Relationship Specialty Start Date End Date Janet Little MD [address] [facility] [place] [address] PCP - General 12/13/09 JoseoGumarota, [facility] [address] [facility] [place] [address] Pharmacist Pharmacy 09/10/23 Express Clerk Relationship Specialty Start Date End Date Janet Little MD [address] [facility] [place] [address] PCP - General 12/13/09 Gumaro Palmata, [facility] [address] [facility] [place] [address] Pharmacist Pharmacy 09/10/23 Express Clerk Relationship Specialty Start Date End Date Janet Little MD [address] [place] [address] PCP - General 12/13/09 Darcy Palma, [facility] [address] [place] [address] Pharmacist Pharmacy 09/10/23 Express Clerk Relationship Specialty Start Date End Date Janet Little MD [address] [place] [address] PCP - General 12/13/09 Darcy Palma, [facility] [address] [place] [address] Pharmacist Pharmacy 09/10/23 Brandi Childers APRN.TELEPHONE REPAIRER [address] [place] [address] Corporate Quality Manager Family Medicine 07/24/24 Express Clerk Relationship Specialty Start Date End Date Janet Little MD [address] [place] [address] PCP - General 12/13/09 Darcy Palma, [facility] [address] [place] [address] Pharmacist Pharmacy 09/10/23 Brandi Childers APRN.TELEPHONE REPAIRER [address] [place] [address] Corporate Quality Manager Family Medicine 07/24/24 Reno Moore APRN.TELEPHONE REPAIRER [address] [place] [address] Corporate Quality Manager [facility] 08/02/24 Express Clerk Relationship Specialty Start Date End Date Janet Little MD [address] [place] [address] PCP - General 12/13/09 [facility] [address] [place] [address] Pharmacist Pharmacy 09/10/23 Brandi Childers, SALESPERSON [employer].TELEPHONE REPAIRER [address] [place] [address] Corporate Quality Manager Family Medicine 07/24/24 Reno Moore, SALESPERSON [employer]IST [employer]IES.TELEPHONE REPAIRER [address] [place] [address] [facility]/24 Express Clerk Relationship Specialty Start Date End Date Janet Little MD [address] [place] [address] PCP - General 12/13/09 [facility] [address] [place] [address] Pharmacist Pharmacy 09/10/23 Brandi Childers SALESPERSON [employer]IST [employer].TELEPHONE REPAIRER [address] [place] [address] Corporate Quality Manager Family Medicine 07/24/24 Reno Moore APRN.TELEPHONE REPAIRER [address] [facility] [place] [address] Corporate Quality Manager [facility] 08/02/24 Express Clerk Relationship Specialty Start Date End Date Janet Little MD [address] [place] [address] PCP - General 12/13/09 FarhadwiDarcy peñaPemiscot [facility] [address] [place] [address] Pharmacist Pharmacy 09/10/23 Brandi Childers APRN.TELEPHONE REPAIRER [address] [place] [address] Corporate Quality Manager Family Medicine 07/24/24 Reno Moore APRN.TELEPHONE REPAIRER [address] [place] [address] Corporate Quality Manager Family Medicine 08/02/24 Express Clerk Relationship Specialty Start Date End Date Janet Little MD [address] [place] [address] PCP - General 12/13/09 [facility] [address] [place] [address] Pharmacist Pharmacy 09/10/23 Brandi Childers APRN.TELEPHONE REPAIRER [address] [place] [address] Corporate Quality Manager Family Medicine 07/24/24 Reno Moore APRN.TELEPHONE REPAIRER [address] [place] [address] Corporate Quality Manager Family Medicine 08/02/24 Express Clerk Relationship Specialty Start Date End Date Janet Little MD [address] [place] [address] PCP - General 12/13/09 [facility] [address] [place] [address] Pharmacist Pharmacy 09/10/23 Brandi Childers, SALESPERSON [employer].TELEPHONE REPAIRER [address] [facility] [place] [address] Corporate Quality Manager Family Medicine 07/24/24 Reno Moore SALESPERSON [employer]IST [employer].TELEPHONE REPAIRER [address] [facility] [place] [address] Corporate Quality Manager Family Medicine 08/02/24 Express Clerk Relationship Specialty Start Date End Date Janet Little MD [address] [facility] [place] [address] PCP - General 12/13/09 [facility] [address] [place] [address] Pharmacist Pharmacy 09/10/23 Brandi Childers, SALESPERSON [employer].TELEPHONE REPAIRER [address] [place] [address] Corporate Quality Manager Family Medicine 07/24/24 Reno Moore, SALESPERSON [employer].TELEPHONE REPAIRER [address] [facility] [address] Corporate Quality Manager Family Medicine 08/02/24 Express Clerk Relationship Specialty Start Date End Date Janet Little MD [address] [place] [address] PCP - General 12/13/09 [facility] [address] [place] [address] Pharmacist Pharmacy 09/10/23 Brandi Childers APRN.TELEPHONE REPAIRER [address] [place] [address] Corporate Quality Manager Family Medicine 07/24/24 Reno Moore APRN.TELEPHONE REPAIRER [address] [place] [address] Corporate Quality Manager Family Medicine 08/02/24 Express Clerk Relationship Specialty Start Date End Date Janet Little MD [address] [place] [address] PCP - General 12/13/09 [facility] [address] [place] [address] Pharmacist Pharmacy 09/10/23 Brandi Childers APRN.TELEPHONE REPAIRER [address] [place] [address] Corporate Quality Manager Family Medicine 07/24/24 Reno Moore APRN.TELEPHONE REPAIRER [address] [place] [address] Corporate Quality Manager Family Medicine 08/02/24 Express Clerk Relationship Specialty Start Date End Date Janet Little MD [address] [place] [address] PCP - General 12/13/09 Darcy Palma, [facility] [address] [place] [address] Pharmacist Pharmacy 09/10/23 Brandi Childers APRN.TELEPHONE REPAIRER [address] [place] [address] Corporate Quality Manager Family Medicine 07/24/24 Reno Moore APRN.TELEPHONE REPAIRER [address] [place] [address] Corporate Quality Manager Family Medicine 08/02/24 Express Clerk Relationship Specialty Start Date End Date Janet Little MD [address] [place] [address] PCP - General 12/13/09 [facility] [address] [place] [address] Pharmacist Pharmacy 09/10/23 Brandi Childers APRN.TELEPHONE REPAIRER [address] [place] [address] Corporate Quality Manager Family Medicine 07/24/24 Reno Moore APRN.TELEPHONE REPAIRER [address] [place] [address] Corporate Quality Manager Family Medicine 08/02/24 Express Clerk Relationship Specialty Start Date End Date Janet Little MD [address] [place] [address] PCP - General 12/13/09 Darcy Palma, [facility] [address] [place] [address] Pharmacist Pharmacy 09/10/23 Reno Moore APRN.TELEPHONE REPAIRER [address] [place] [address] Corporate Quality Manager Family Medicine 08/02/24 Express Clerk Relationship Specialty Start Date End Date Janet Little MD [address] [place] [address] PCP - General 12/13/09 [facility] [address] [place] [address] Pharmacist Pharmacy 09/10/23 Reno Moore APRN.TELEPHONE REPAIRER [address] [place] [address] Corporate Quality Manager Family Medicine 08/02/24 Express Clerk Relationship Specialty Start Date End Date Janet Little MD [address] [place] [address] PCP - General 12/13/09 Darcy Palma, [facility] [address] [place] [address] Pharmacist Pharmacy 09/10/23 Reno Moore APRN.TELEPHONE REPAIRER [address] [place] [address] Corporate Quality Manager Family Medicine 08/02/24 Express Clerk Relationship Specialty Start Date End Date Janet Little MD [address] [place] [address] PCP - General 12/13/09 Darcy Palma, [facility] [address] [place] [address] Pharmacist Pharmacy 09/10/23 Reno Moore APRN.TELEPHONE REPAIRER [address] [place] [address] [facility] Express Clerk Relationship Specialty Start Date End Date Janet Little MD [address] [place] [address] PCP - General 12/13/09 [facility] [address] [place] [place] [address] Pharmacist Pharmacy 09/10/23 Reno Moore APRN.TELEPHONE REPAIRER [address] [place] [address] [facility] 08/02/24 Express Clerk Relationship Specialty Start Date End Date Janet Little MD [address] [facility] [place] [address] PCP - General 12/13/09 Darcy Palma, [facility] [address] [place] [address] Pharmacist Pharmacy 09/10/23 Reno Moore APRN.TELEPHONE REPAIRER [address] [place] [address] [facility] 08/02/24 Goals (unrecognized section and content) Goals may be documented in a n alternate section INFORMATION SOURCE (unrecogn ized section and content) DATE CREATED AUTHOR [facility] DATE CREATED AUTHOR AUTHOR'Jeremy ZAMORA 03/14/2025 [facility] FOR RECORDS PERTAINING TO PATIENTS WHO ARE OR HAVE BEEN ENROLLED IN A CHEMICAL DEPENDENCY/SUBSTANCEABUSE PROGRAM, SOME INFORMATION MAY BE OMITTED. This clinical summary was aggregated from multiple sources. Caution should be exercised in using it in the provision of clinical care. This summary normalizes information from multiple sources, and as a consequence, information in this document may materially change the coding, format and clinical context of patient data. In addition, data may be omitted in some cases. CLINICAL DECISIONS SHOULD BE BASED ON THE PRIMARY CLINICAL RECORDS. [facility]. provides no warranty or guarantee of the accuracy or completeness of information in this document.
== END | disposition home or self-care (01) ==
LOC: CT 12:14
PROVIDERS: PCP Family Medicine; Referring Provider Otolaryngology; Visit Provider Otolaryngology
DX: H93.A3 Pulsatile tinnitus, bilateral (principal)
CPT/HCPCS: 70496; 70498; Q9967

== ENCOUNTER → 2025-05-03 | Outpatient (CLI) | payer MEDICARE, SELFPAY ==
--- NOTE | 2025-05-03 09:33 | ECHOD_ITS ---
Reason For Study Reason For Study: HX MULTIPLE TIAs/CVA Procedure This was a 2D Doppler, Color Flow transthoracic echocardiogram. Exam performed in department. Left Ventricle Normal LV size. Left ventricular systolic function is normal. The left ventricular ejection fraction is 60 %. No regional wall motion abnormalities noted. Right Ventricle Normal RV size. Normal systolic function. Atria Normal left atrium. Normal right atrium. Mitral Valve Normal mitral valve. There is mild mitral annular calcification. Mild (1+) eccentric mitral valve insufficiency. Tricuspid Valve Normal tricuspid valve. Aortic Valve Trisinus/trileaflet aortic valve. Mild focal aortic valve thickening. Pulmonic Valve Normal pulmonic valve. Great Vessels Normal aortic root. The pulmonary artery is normal size. Inferior vena cava collapse with respiration. Pericardium/Pleural No pericardial effusion. MMode/2D Measurements & Calculations LVIDd: 3.8 cm IVSd: 1.3 cm Ao root diam: 2.7 cm LVIDs: 2.4 cm LVPWd: 1.4 cm RVDd: 3.2 cm FS: 35.9 % LAV(MOD-bp): 50.7 ml LVAd ap4: 31.8 cm2 LVAd ap2: 23.1 cm2 LAV(MOD-bp) Indexed: 25.5 ml/m2 LVLd ap4: 8.1 cm LVLd ap2: 7.9 cm LAV(MOD-sp2): 49.2 ml EDV(MOD-sp4): 104.6 ml EDV(MOD-sp2): 59.6 ml LAV(MOD-sp4): 52.0 ml EDV(sp4-el): 106.5 ml EDV(sp2-el): 57.6 ml LVAs ap4: 15.7 cm2 LVAs ap2: 12.3 cm2 LVLs ap4: 6.4 cm LVLs ap2: 6.4 cm ESV(MOD-sp4): 35.5 ml ESV(MOD-sp2): 22.6 ml ESV(sp4-el): 32.9 ml ESV(sp2-el): 20.2 ml EF(MOD-sp4): 66.1 % EF(MOD-sp2): 62.1 % EF(sp4-el): 69.1 % SV(MOD-sp4): 69.1 ml SV(MOD-sp2): 37.0 ml SV(sp4-el): 73.7 ml SI(MOD-sp4): 34.8 ml/m2 SI(MOD-sp2): 18.6 ml/m2 LA A4 area: 17.8 cm2 LA dimension(2D): 3.6 cm RA A4 area: 11.7 cm2 TAPSE: 2.5 cm Time Measurements MV dec time: 0.16 sec Doppler Measurements & Calculations MV E max curt: 132.2 cm/sec Lat Peak E' Curt: 10.6 cm/sec Med Peak E' Curt: 6.3 cm/sec MV A max curt: 115.3 cm/sec E/E' lat: 12.4 E/E' med: 20.9 MV E/A: 1.1 MV V2 max: 132.0 cm/sec MV P1/2t max curt: 146.2 cm/sec Ao V2 max: 173.4 cm/sec MV max P.0 mmHg MV P1/2t: 44.0 msec Ao max P.0 mmHg MV V2 mean: 84.5 cm/sec Ao V2 mean: 136.2 cm/sec MV mean P.1 mmHg MV dec slope: 972.5 cm/sec2 Ao mean P.8 mmHg MV V2 VTI: 27.0 cm MVA(P1/2t): 5.0 cm2 Ao V2 VTI: 40.4 cm AV (velocity ratio): 0.51 LV V1 max: 90.1 cm/sec PA V2 max: 133.7 cm/sec LV V1 max P.2 mmHg PA V2 mean: 101.0 cm/sec LV V1 mean P.0 mmHg LV V1 mean: 67.8 cm/sec LV V1 VTI: 20.7 cm ECHO/Echo Complete Interpretation Summary Normal LV size. Left ventricular systolic function is normal. The left ventricular ejection fraction is 60 %. Mild focal aortic valve thickening. Mild (1+) eccentric mitral valve insufficiency. Ordering Physician: Nabil Ricketts Referring Physician: Brendon Little Performed By: Amina Braden RDCS, RVT
== END | disposition home or self-care (01) ==
PROVIDERS: PCP Family Medicine; Referring Provider Otolaryngology; Visit Provider Otolaryngology
DX: H93.A3 Pulsatile tinnitus, bilateral (principal); Z86.73 Personal history of transient ischemic attack (TIA), and cerebral infarction without residual deficits
CPT/HCPCS: 93306

== ENCOUNTER → 2025-06-09 | Outpatient (CLI) | payer MEDICARE, SELFPAY ==
--- NOTE | 2025-06-09 08:56 | CDU_ITS ---
Reason For Study Reason For Study: Carotid Artery / Vertebral Artery Disease Rt. Velocities/BP Lt. Velocities/BP Prox CCA 65.5/14.9 cm/sec. Prox CCA 60.1/11.9 cm/sec. Mid CCA 49.0/11.7 cm/sec. Mid CCA 48.7/11.9 cm/sec. Dist CCA 76.5/12.7 cm/sec. Dist CCA 61.0/13.8 cm/sec. Prox ICA 68.5/19.0 cm/sec. Prox ICA 73.3/11.9 cm/sec. Mid ICA 59.7/19.0 cm/sec. Mid ICA 58.8/13.2 cm/sec. Dist ICA 64.1/25.6 cm/sec. Dist ICA 42.4/16.8 cm/sec. Rt. ICA/CCA = 1.4. Lt. ICA/CCA = 1.5. Prox ECA 145.5/13.8 cm/sec. Prox ECA 144.0/16.7 cm/sec. Rt. Vert. 112.5/32.1 cm/sec. Lt. Vert. 23.5/6.5 cm/sec. Right Extracranial There is heterogeneous, smooth atherosclerotic plaque noted in the right common carotid artery. There is heterogeneous, irregular atherosclerotic plaque noted in the right internal carotid artery. There is intimal thickening but no significant atherosclerotic plaque noted in the right external carotid artery. Antegrade flow is noted in the right vertebral artery. Left Extracranial There is heterogeneous, irregular atherosclerotic plaque noted in the left common carotid artery. There is heterogeneous, irregular atherosclerotic plaque noted in the left internal carotid artery. The distal left internal carotid artery is not well visualized. There is heterogeneous, irregular atherosclerotic plaque noted in the left external carotid artery. Antegrade flow is noted in the left vertebral artery. Procedure Carotid Duplex 44428. This is a Carotid Duplex examination using B-mode, color flow and specral Doppler. The exam was diagnostic. Exam performed in department. VL/Carotid Duplex Ultrasound Interpretation Summary Mild (<50%) stenosis right extracranial internal carotid. Mild (<50%) stenosis left extracranial internal carotid. Patent and antegrade vertebrals bilaterally. Ordering Physician: Jerri Iglesias Referring Physician: Yusuf Vickers Performed By: Abraham Norwood RVT
== END | disposition home or self-care (01) ==
LOC: CVS 08:52
PROVIDERS: PCP Family Medicine; Referring Provider Physician Assistant; Visit Provider Physician Assistant
DX: I65.22 Occlusion and stenosis of left carotid artery (principal)
CPT/HCPCS: 93880

== ENCOUNTER 2025-06-20 17:11 | Inpatient (IN) | payer MEDICARE, SELFPAY ==
[2025-06-20] VITALS (11 sets, daily range): BP systolic 176–224; BP diastolic 61–119; PULSE 72–106; RESP 11–19; TEMP 36.4–36.8; O2SAT 91–99; BMI 37.2; BMI 37.0
--- NOTE | 2025-06-20 17:18 | CT_ITS ---
PROCEDURE: CT/STROKE Brain/Head without Cont
--- NOTE | 2025-06-20 17:19 | CT_ITS ---
PROCEDURE: CT/STROKE CTA Head AND Neck W/Con
--- NOTE | 2025-06-20 17:23 | ED.VIS.STROK ---
HPI History of Present Illness Chief Complaint: Stroke Alert Onset/Context/Timing Onset: Yesterday Context: Sudden Onset Timing: Continuous Quality and Location: Positive for Expressive Aphasia Onset: Last known well was 10 PM last night Worsened by: Nothing Relieved by: Nothing Associated Symptoms Associated Symptoms: Negative for Headache, Nausea, Vomiting or Chest Pain Narrative Narrative: Patient presents with expressive aphasia that began today. states that patient went to bed last night around 10 PM. states that when she woke up today she was having some difficulty speaking and finding the words that she wants to say. states that it became worse throughout the day. Patient states nothing makes it worse and nothing makes it better. Patient admits to a frontal headache. Patient denies any paresthesias or weakness. Patient denies any visual changes. [facility] Medical History Stroke/cerebrovascular accident Diabetes Home Medications ?Medication ?Instructions ?Recorded ?Last Taken ?Type insulin glargine 100 unit/mL (3 66 unit subcut QHS DIABETES 12/18/23 06/19/25 History mL) subcutaneous pen (Lantus Solostar U-100 Insulin) cholecalciferol (vitamin D3) 1,250 1,250 mcg PO QWEEK SUPPLEMENT 05/08/25 06/19/25 History mcg (50,000 unit) capsule mupirocin 2 % topical ointment 1 applic topical TID 05/08/25 Unknown History ([facility]) pen needle, diabetic 32 gauge x 05/08/25 Unknown History pen needle, diabetic 32 gauge x 05/08/25 Unknown History acetaminophen 500 mg capsule 1,000 mg PO Q6H PRN fever or pain 06/20/25 06/16/25 History clobetasol 0.05 % topical cream 1 applic topical BID PRN dry skin 06/20/25 Unknown History lorazepam 1 mg tablet 1 mg PO TID PRN anxiety 06/20/25 06/20/25 History Allergy/AdvReac Type Severity Reaction Status Date / Time caffeine AdvReac Other Verified 06/20/25 17:12 diphenhydramine (From AdvReac PT UNSURE Verified 06/20/25 17:12 Benadryl) OF REACTION prochlorperazine (From AdvReac Other Verified 06/20/25 17:12 Compazine) Surgical History Hx of cholecystectomy H/O abdominal hysterectomy Social History household members: spouse Smoking Status: Never smoker ROS ROS ED Constitutional Constitutional ED: Denies chills or fever(s) Eyes Eyes: Denies blurry vision or change in vision ENT ENT ED: Denies rhinorrhea or sore throat Cardiovascular Cardiovascular: Denies chest pain or palpitations Respiratory/Chest Respiratory/Chest: Denies cough or dyspnea Gastrointestinal Gastrointestinal: Denies nausea or vomiting Genitourinary Genitourinary ED: Denies dysuria or hematuria Musculoskeletal Musculoskeletal: Denies back pain or neck pain Integumentary Denies abscess or rash Neurologic Neurologic: Reports headache(s); Denies weakness Allergic/Immunologic Allergic/Immunologic ED: Denies mouth swelling or urticaria EXAM Physical Exam Const Vital Signs: 06/20/25 17:11 06/20/25 17:11 06/20/25 17:18 Temperature 97.5 F L Temperature Source Temporal Pulse Rate 106 H 106 H Respiratory Rate 18 18 Blood Pressure 224/119 H 224/119 H Blood Pressure Mean 154 154 Pulse Ox 96 96 Oxygen Delivery Method Room Air Room Air Room Air 06/20/25 17:48 06/20/25 18:18 06/20/25 18:30 Temperature Temperature Source Pulse Rate 84 81 78 Respiratory Rate 11 L 13 16 Blood Pressure 186/90 H 192/75 H 201/75 H Blood Pressure Mean 122 114 117 Pulse Ox 98 99 98 Oxygen Delivery Method Room Air Room Air Room Air 06/20/25 18:56 06/20/25 18:59 Temperature 97.8 F Temperature Source Pulse Rate 85 82 Respiratory Rate 15 18 Blood Pressure 187/73 H 187/73 H Blood Pressure Mean 111 111 Pulse Ox 95 97 Oxygen Delivery Method Room Air Positive well nourished and well developed General Appearance ED: well developed and NAD HEENT Reports moist mucous membranes Neck supple and no JVD Resp normal respiratory effort and clear to auscultation bilaterally Cardio Rate: regular rate Rhythm: regular rhythm GI soft to palpation, non-tender and non-distended Extremity normal to inspection General Extremety ED: Negative for deformity, edema or tenderness General Extremity: Negative for deformity or edema Neuro oriented x3, CN's II-XII intact bilaterally and no sensory deficits noted Bryon Coma Scale: document GCS findings Spontaneous Obeys Commands Oriented 15 Sensorium / Orientation: alert Speech: speech normal Motor Exam: strength 5/5 throughout Psych mental status grossly normal MDM MDM MDM Narrative Medical decision making narrative: Stroke alert was called from triage. Patient was evaluated there. CT scan of the brain will be obtained to assess for stroke and intracranial bleeding. CTA of the head and neck will be obtained to assess for large vessel occlusion and stenosis. Chest x-ray will be obtained to assess for pneumonia or bronchitis. EKG will be obtained to assess for cardiac dysrhythmia and cardiac ischemia. CBC will be obtained to assess for leukocytosis and anemia. Basic metabolic profile will be obtained to assess for electrolyte abnormality and renal function. PT with INR and PTT will be obtained to assess for coagulopathy. High-sensitivity troponin will be obtained to assess for cardiac ischemia. 2-hour repeat high-sensitivity troponin will be obtained to assess for ongoing cardiac ischemia. Lab Data Attestation: I reviewed the patient's lab results. Lab results narrative: CBC was reviewed. There is a mild leukocytosis of 16.5. The remainder is within normal limits. PT with INR and PTT were reviewed and were within normal limits. Basic metabolic profile was reviewed. Sodium was slightly low at 131 and chloride is 97. Creatinine was reviewed and was normal at 0.66. Glucose was mildly elevated at 157. Initial high-sensitivity troponin was reviewed and was slightly elevated at 61. Labs: Laboratory Results - last 24 hr 06/20/25 06/20/25 17:13 17:31 WBC 16.5 H RBC 4.68 Hgb 13.6 Hct 40.3 MCV 86.1 MCH 29.1 MCHC 33.7 RDW Std Deviation 41.1 RDW Coeff of Michaela 13.2 Plt Count 320 MPV 10.6 Immature Gran % (Auto) 0.500 Neut % (Auto) 52.7 Lymph % (Auto) 37.8 [place] % (Auto) 8.2 Eos % (Auto) 0.5 Baso % (Auto) 0.3 Absolute Neuts (auto) 8.7 H Absolute Lymphs (auto) 6.24 H Nucleated RBC % 0 PT 14.6 INR 1.1 APTT 25.0 Sodium 131 L Potassium 3.7 Chloride 97 L Carbon Dioxide 22.6 Anion Gap 12 BUN 18 Creatinine 0.66 L Estim Creat Clear Calc 68.76 Est GFR (MDRD) Non-Af 93 BUN/Creatinine Ratio 27.8 H Glucose 157 H Calcium 8.1 Troponin T High Sens 61 H* POC Glucose 146 H Radiography Diagnostic Testing: Clinical Impression(s) from Imaging Studies Brain CT 06/20/25 17:18 IMPRESSION: New ill-defined hypodensity at the left insular cortex may reflect subacute/chronic infarction although acute infarction is not entirely excluded. Again seen is left striatocapsular chronic infarction and left frontal and left parietal encephalomalacia from chronic infarction. The critical findings in the findings and impression above were relayed directly by me by telephone to Dg Javed on 06/20/2025 at 5:52 pm with readback verification. Reading Location: [facility] Head/Neck CTA 06/20/25 17:19 IMPRESSION: Mildly worsened left M1 stenosis with approximate moderate narrowing with distal reconstitution although distal branches may have diminutive flow compared to right. Moderate stenosis of the left carotid cavernous segment and mild stenosis at the left carotid siphon due to extensive atherosclerotic plaque. The critical findings in the findings and impression above were relayed directly by me by telephone to Dg Javed on 06/20/2025 at 5:55 pm with readback verification. Reading Location: [facility] Chest X-Ray 06/20/25 17:38 IMPRESSION: No acute cardiopulmonary disease. Reading Location: [facility] CT scan of the brain was obtained. There is a ill-defined hypodensity at the left insular cortex which could be a subacute or chronic infarct although acute infarction is not excluded. This was interpreted by the radiologist and was also independently reviewed by myself. CTA of the head and neck was obtained. There is mildly worsening of the left M1 stenosis with moderate narrowing. There is moderate stenosis of the left carotid cavernous segment and mild stenosis of the left carotid siphon. There is no large vessel occlusion noted. This was interpreted by the radiologist and was also independently reviewed by myself. Portable 1 view chest x-ray was obtained. On my independent interpretation, lung arciniega are clear. There is normal cardiac silhouette. Bony thorax is normal. There is no acute process noted. Radiologist also interpreted the x-ray and agrees. EKG Initial EKG: Attestation: I personally reviewed and interpreted this EKG as follows: Interpretation: Sinus Rhythm (87) and Non-Specific ST Changes Comments: EKG was obtained. On my independent interpretation, it showed a normal sinus rhythm with a rate of 87. ND interval, QRS interval, and QTc intervals were all normal. [place] was normal. There are nonspecific ST-T wave changes. Prior EKG tracings: available for review Prior: Unchanged (06/25/2021) Management Discussion w/another healthcare provider: Hospitalist, Assembler Gold Frame and Radiologist Treatment and Re-Evaluation Narrative: Patient was given a dose of labetalol here for her blood pressure. Patient was given aspirin. Patient was evaluated by stroke neurologist. He recommended admission for further evaluation. Case will be discussed with the hospitalist. Case was discussed with the hospitalist. He will admit the patient to PCU. Patient and understand and are agreeable with the plan. All questions were answered. Discharge Plan Dx/Rx/DC Orders Clinical Impression: Expressive aphasia, Headache, Hypertension, Diabetes Disposition Disposition: Acute Care Hospital [facility] NIHSS NIHSS 1a. Level of Consciousness: 0 - Alert; keenly responsive 1b. LOC Questions: 0 - Answers BOTH questions correctly 1c. LOC Commands: 0 - Performs BOTH tasks correctly 2. Best Gaze: 0 - Normal 3. Visual: 0 - No visual loss 4. Facial Palsy: 0 - Normal symmetrical movements 5a. Left Arm: 0 - No drift; arm holds 90 (or 45) degrees for full 10 seconds 5b. Right Arm: 0 - No drift; arm holds 90 (or 45) degrees for full 10 seconds 6a. Left Le - No drift; leg holds 30-degree position for full 5 seconds 6b. Right Le - No drift; leg holds 30-degree position for full 5 seconds 8. Sensory: 0 - Normal; no sensory loss 9. Best Language: 1 - Vaic-oa-ahaxmefd aphasia; 10. Dysarthria: 0 - Normal 11. Extinction and Inattention: 0 - No abnormality Total: 1 Stroke Questions Stroke Team Activated: Yes Reviewed Inclusion/Exclusion criteria: Yes IV Thrombolytic Administered: No No contraindications from thrombolytic administration: No
--- NOTE | 2025-06-20 17:38 | RAD_ITS ---
PROCEDURE: RAD/Chest 1 View
[2025-06-20 17:42] LABS: Hematocrit 40.3 % (37-47); Hemoglobin 13.6 g/dL (12.0-15.0); Immature Granulocytes Count 0.080 X10^3/uL (0.0-0.0); Mean Corp Hgb Conc 33.7 g/dL (32-36); Mean Corpuscular Volume 86.1 fL (81-99); Mean Platelet Vol. 10.6 fl (6.2-12.0); NRBC Flagged by Analyzer 0 % (0-5); POSITIVE DIFFERENTIAL YES; POSITIVE MORPHOLOGY YES; Platelet Count 320 K/mm3 (150-450); RBC Distribution Width CV 13.2 % (11.6-14.6); RBC Distribution Width SD 41.1 fl (35.1-43.9); Red Blood Count 4.68 M/mm3 (4.2-5.4); White Blood Count 16.5 K/mm3 (4.4-11.0)
[2025-06-20 17:57] LABS: Anion Gap 12 (5-15); BUN 18 mg/dL (4-19); BUN/Creat Ratio 27.8 RATIO (10-20); Calcium,Total 8.1 mg/dL (7.6-11.0); Carbon Dioxide 22.6 mmol/L (21.0-32.0); Chloride 97 mmol/L (98-108); Estimated Creatinine Clearance 68.76 ml/min (50-250); Glucose 157 mg/dL (70-99); Potassium 3.7 mmol/L (3.3-5.1)
[2025-06-20 18:02] LABS: Troponin T High Sensitivity 61 ng/L (<=14)
[2025-06-20 18:04] LABS: Differential Indicated SCAN CRITERIA MET
[2025-06-20 18:10] LABS: Prothrombin Time (Protime)PT. 14.6 SECONDS (11.7-14.9)
[2025-06-20 18:11] LABS: Partial Thromboplast Time 25.0 Seconds (24.1-36.2)
--- NOTE | 2025-06-20 19:04 | PCM.HP.STD ---
HPI - General General Date of Admission: 06/20/25 Date of Service: 06/20/25 Chief Complaint: Strokelike symptoms HPI Narrative CHUCK BLANCHARD, is a 75 F who presented to [facility] ED on 06/20/25 with strokelike symptoms. Medical history significant for prior CVA with no residual deficits, carotid and vertebral artery disease, type 2 diabetes mellitus, anxiety and chronic bilateral knee pain due to osteoarthritis. Patient lives at home with her , has decent functional status at baseline. She recently established with Dr. Reid with pain management and had both knees injected with steroid on Saturday 06/16. She never had injections like this done before. She noted that her blood sugars spiked to the mid to high 200s the next day and she was concerned about this. Notes that she has had some improvement in her ambulation and pain in the knees since then. She otherwise was in her usual state of health yesterday. However, when she woke up this morning she was having some difficulty with speaking and word finding. These symptoms worsened throughout the day and nothing seemed to make it better so they came to the ED for further evaluation. Stroke alert was called on arrival. She was hypertensive to the 180s to 190s systolic, otherwise was in normal sinus rhythm, afebrile and stable on room air at rest. WBC count 16K, sodium 131, chloride 97, glucose 157, no other significant lab abnormalities. CT brain showed a new ill-defined hypodensity at the left insular cortex likely reflecting a subacute versus chronic infarction as well as left frontal and left parietal encephalomalacia from chronic infarction. CTA head/neck showed mildly worsened left M1 stenosis with approximate moderate narrowing with distal reconstitution, moderate stenosis of the left carotid. She was evaluated by teleneurology who gave her an NIHSS score of 1 for mild to moderate aphasia. She was given a dose of IV labetalol as well as aspirin 325 mg, and hospitalist was contacted for admission. I saw the patient at bedside in the ED, is present. Patient was sitting back comfortably in bed, conversing normally, in no acute distress. She did not seem to have any difficulty speaking or word finding difficulties during our conversation and she noted that this was continuing to improve from earlier today. She denied any other acute concerns currently. Will be admitted for further management. [facility] Medical History Stroke/cerebrovascular accident Diabetes Home Medications ?Medication ?Instructions ?Recorded ?Last Taken ?Type insulin glargine 100 unit/mL (3 66 unit subcut QHS DIABETES 12/18/23 06/19/25 History mL) subcutaneous pen (Lantus Solostar U-100 Insulin) cholecalciferol (vitamin D3) 1,250 1,250 mcg PO QWEEK SUPPLEMENT 05/08/25 06/19/25 History mcg (50,000 unit) capsule mupirocin 2 % topical ointment 1 applic topical TID 05/08/25 Unknown History (Isaac) pen needle, diabetic 32 gauge x 05/08/25 Unknown History pen needle, diabetic 32 gauge x 05/08/25 Unknown History acetaminophen 500 mg capsule 1,000 mg PO Q6H PRN fever or pain 06/20/25 06/16/25 History clobetasol 0.05 % topical cream 1 applic topical BID PRN dry skin 06/20/25 Unknown History lorazepam 1 mg tablet 1 mg PO TID PRN anxiety 06/20/25 06/20/25 History Allergy/AdvReac Type Severity Reaction Status Date / Time caffeine AdvReac Other Verified 06/20/25 17:12 diphenhydramine (From AdvReac PT UNSURE Verified 06/20/25 17:12 Benadryl) OF REACTION prochlorperazine (From AdvReac Other Verified 06/20/25 17:12 Compazine) Surgical History Hx of cholecystectomy H/O abdominal hysterectomy Social History household members: spouse Smoking Status: Never smoker ROS Constitutional Constitutional: Denies chills, fatigue, fever(s) or weakness Eyes Eyes: Denies blurry vision or change in vision ENT HEENT: Reports headache(s); Denies abnormal hearing, nasal congestion, nasal discharge or post nasal drip Cardiovascular Cardiovascular: Denies chest pain Respiratory/Chest Respiratory/Chest: Denies shortness of breath at rest Gastrointestinal Gastrointestinal: Denies abdominal pain Musculoskeletal Musculoskeletal: Denies arthralgias or myalgias Neurologic Neurologic: Denies abnormal speech, confusion, disequilibrium, dizziness, focal weakness, headache(s), numbness or tingling Vital Signs Vital Signs Vital Signs: 06/20/25 17:11 06/20/25 17:11 06/20/25 17:18 Temperature 97.5 F L Temperature Source Temporal Pulse Rate 106 H 106 H Respiratory Rate 18 18 Blood Pressure 224/119 H 224/119 H Blood Pressure Mean 154 154 Pulse Ox 96 96 Oxygen Delivery Method Room Air Room Air Room Air 06/20/25 17:48 06/20/25 18:18 06/20/25 18:30 Temperature Temperature Source Pulse Rate 84 81 78 Respiratory Rate 11 L 13 16 Blood Pressure 186/90 H 192/75 H 201/75 H Blood Pressure Mean 122 114 117 Pulse Ox 98 99 98 Oxygen Delivery Method Room Air Room Air Room Air 06/20/25 18:56 06/20/25 18:59 Temperature 97.8 F Temperature Source Pulse Rate 85 82 Respiratory Rate 15 18 Blood Pressure 187/73 H 187/73 H Blood Pressure Mean 111 111 Pulse Ox 95 97 Oxygen Delivery Method Room Air Weight Weight: 95.254 kg Body Mass Index (BMI) 37.2 Physical Exam Const alert, oriented x3 and no apparent distress Constitutional Narrative: Elderly female, class II obesity, mildly fatigued appearing but otherwise sitting back comfortably in bed, conversing normally, in no acute distress. General Appearance: cooperative and comfortable HEENT normocephalic, head/scalp atraumatic, hearing grossly normal bilaterally, nasal mucous membranes and turbinates normal and moist oral mucous membranes Eyes PERRL, EOMs intact bilaterally and conjunctivae normal Neck full ROM Chest inspection of chest normal Resp normal respiratory effort, normal air movement, no use of accessory muscles and clear to auscultation bilaterally Cardio regular rate, regular rhythm, no murmurs and peripheral pulses 2+ throughout GI normal to inspection, nondistended, normoactive bowel sounds, soft to palpation, non-tender and non-distended Back/Spine normal ROM Extremity normal to inspection, full ROM and no pedal edema Skin no rashes or lesions noted Neuro oriented x3, CN's II-XII intact bilaterally, moves all extremities and no focal motor deficits Speech: speech normal Motor Exam: strength 5/5 throughout Psych mental status grossly normal Results Lab / Micro Data 06/20/25 17:31 06/20/25 17:31 Labs: Laboratory Results - last 24 hr 06/20/25 17:13: POC Glucose 146 H 06/20/25 17:31: WBC 16.5 H, RBC 4.68, Hgb 13.6, Hct 40.3, MCV 86.1, MCH 29.1, MCHC 33.7, RDW Std Deviation 41.1, RDW Coeff of Michaela 13.2, Plt Count 320, MPV 10.6, Immature Gran % (Auto) 0.500, Neut % (Auto) 52.7, Lymph % (Auto) 37.8, Warrick % (Auto) 8.2, Eos % (Auto) 0.5, Baso % (Auto) 0.3, Absolute Neuts (auto) 8.7 H, Absolute Lymphs (auto) 6.24 H, Nucleated RBC % 0, PT 14.6, INR 1.1, APTT 25.0, Sodium 131 L, Potassium 3.7, Chloride 97 L, Carbon Dioxide 22.6, Anion Gap 12, BUN 18, Creatinine 0.66 L, Estim Creat Clear Calc 68.76, Est GFR (MDRD) Non-Af 93, BUN/Creatinine Ratio 27.8 H, Glucose 157 H, Calcium 8.1, Troponin T High Sens 61 H* Imaging Radiology Impression Brain CT 06/20/25 17:18 IMPRESSION: New ill-defined hypodensity at the left insular cortex may reflect subacute/chronic infarction although acute infarction is not entirely excluded. Again seen is left striatocapsular chronic infarction and left frontal and left parietal encephalomalacia from chronic infarction. The critical findings in the findings and impression above were relayed directly by me by telephone to Dg Javed on 06/20/2025 at 5:52 pm with readback verification. Reading Location: [id number] Head/Neck CTA 06/20/25 17:19 IMPRESSION: Mildly worsened left M1 stenosis with approximate moderate narrowing with distal reconstitution although distal branches may have diminutive flow compared to right. Moderate stenosis of the left carotid cavernous segment and mild stenosis at the left carotid siphon due to extensive atherosclerotic plaque. The critical findings in the findings and impression above were relayed directly by me by telephone to Dg Javed on 06/20/2025 at 5:55 pm with readback verification. Reading Location: [facility] Chest X-Ray 06/20/25 17:38 IMPRESSION: No acute cardiopulmonary disease. Reading Location: [id number] Assessment & Plan Assessment/Plan (1) Stroke-like symptoms: PLAN: Plan Patient is a 75-year-old female who presented to [facility] ED on 06/20/2025 with strokelike symptoms. 1. Strokelike symptoms ? Admit under observation status to PCU. Neurology consulted. Presented with expressive aphasia. NIHSS score of 1 in the ED. Hypertensive to the 180s to 190s systolic, not on any home antihypertensives. On chart review, appears patient was hypertensive to the 180s to 190s systolic during her recent outpatient visit with vascular surgery in early May. CT brain nonacute. CTA head/neck with mild worsening of known vertebral artery stenosis as below, no other concerning findings. Orders placed per stroke protocol order set. MRI brain ordered. Notably patient had complete echocardiogram done on 05/03 with EF 60%, no other significant findings noted. Will hold off on repeat echo. PT/OT/case management consulted. A.m. lipid panel, A1c and TSH ordered. Will start baby aspirin. Recommended initiating statin but patient refused. Appreciate further neurology recommendations. 2. Carotid artery and vertebral artery disease, history of prior CVA ? Patient recently saw vascular surgery in the office on 05/19. Was noted that CTA head/neck results from 03/30 were reviewed and showed small caliber left vertebral artery consistent with stenosis and dominant right vertebral artery; also showed left carotid plaque with less than 50% stenosis. Compared to CTA neck images from 2018, noted to be similar in appearance. Plan was for no surgical intervention for vertebral artery stenosis in the absence of documented recurrent stroke while on maximum medical management. They recommended initiating baby aspirin and high intensity statin; patient was agreeable to starting aspirin but given concern for side effects declined the statin. Carotid duplex ultrasound on 06/12 showed mild right and left stenosis of extracranial internal carotid, and patent and antegrade vertebrals bilaterally. No apparent inpatient vascular surgery needs at this time, will hold off on consultation. 3. Type 2 diabetes mellitus ? Glucose 157 on admit. A1c 9.0%. Last A1c in our system from 2018 was 8.0%. Patient notes they have run between 8 and 9 typically. Will treat with reduced dose of Lantus 40 units at night and Humalog 8 units with meals plus sliding scale insulin while inpatient, adjust as needed. 4. Anxiety ? OARRS reviewed and patient has filled Ativan consistently since early . Continue home Ativan 1 mg 3 times daily as needed. 5. Chronic bilateral knee pain with osteoarthritis ? Recent established with Dr. Reid with pain management and had bilateral steroid injections done in the knees on Saturday 06/16. Okay for Tylenol as needed for pain control while inpatient. 6. Class II obesity ? BMI 37 on admit. Complicates hospital course and care. DVT prophylaxis: SCDs CODE STATUS: Full code, verified Expected disposition: Home, 1 to 2 days Total clinical time spent by myself addressing the patient's medical issues, reviewing all the data, and collaborating with patient's care team: 77 minutes. Charges/Coding Visit Charges Inpatient E&M: 72228 Init Hosp L3
[2025-06-20 20:04] LABS: Differential Comment SCANNED
[2025-06-20 21:31] LABS: Troponin T High Sens 2 HR 53 ng/L (<=14)
[2025-06-20] MEDS: Insulin Glargine-YFGN 100 UNIT/ML Pen 40 UNIT SC (21:33)
[2025-06-20 21:58] LABS: Troponin T High Sens 4 HR 73 ng/L (<=14)
[2025-06-21] VITALS (9 sets, daily range): BP systolic 117–200; BP diastolic 54–103; PULSE 75–94; RESP 14–16; TEMP 36.4–37.7; O2SAT 90–97; BMI 37.0
[2025-06-21 05:36] LABS: Hematocrit 41.4 % (37-47); Hemoglobin 14.3 g/dL (12.0-15.0); Mean Corp Hgb Conc 34.5 g/dL (32-36); Mean Corpuscular Volume 84.8 fL (81-99); Mean Platelet Vol. 10.6 fl (6.2-12.0); Platelet Count 329 K/mm3 (150-450); RBC Distribution Width CV 13.3 % (11.6-14.6); RBC Distribution Width SD 41.4 fl (35.1-43.9); Red Blood Count 4.88 M/mm3 (4.2-5.4); White Blood Count 14.9 K/mm3 (4.4-11.0)
[2025-06-21 05:57] LABS: Anion Gap 11 (5-15); BUN 15 mg/dL (4-19); BUN/Creat Ratio 24.5 RATIO (10-20); Calcium,Total 8.8 mg/dL (7.6-11.0); Carbon Dioxide 25.3 mmol/L (21.0-32.0); Chloride 99 mmol/L (98-108); Cholesterol 224 mg/dL (<=200); Estimated Creatinine Clearance 68.54 ml/min (50-250); Glucose 133 mg/dL (70-99); Low Density Lipoprotein Calc. 143 mg/dL; Potassium 3.9 mmol/L (3.3-5.1); Triglycerides 153 mg/dL; Very Low Density Lipoprotein 31 mg/dL (5-40); cholesterol:hdl ratio screen 4.17
--- NOTE | 2025-06-21 08:26 | PN.HOSP_ITS ---
Reason for Visit
--- NOTE | 2025-06-21 08:26 | PCM.PN.HOSP ---
Reason for Visit Chief Complaint: Strokelike symptoms Subjective Subjective Still with expressive aphasia. Objective Data Objective Data Vital Signs: Vital Signs Temp Pulse Resp BP Pulse Ox O2 Del Method 37.3 C 85 16 186/80 H 90 Room Air 06/21/25 07:20 06/21/25 07:20 06/21/25 07:20 06/21/25 07:20 06/21/25 07:20 06/21/25 08:21 Oxygen Delivery Method Room Air Weight: 94.7 kg Body Mass Index (BMI) 37.0 Lab / Micro Data 06/21/25 05:18 06/21/25 05:18 Labs: Laboratory Results - last 24 hr 06/20/25 17:13: POC Glucose 146 H 06/20/25 17:31: WBC 16.5 H, RBC 4.68, Hgb 13.6, Hct 40.3, MCV 86.1, MCH 29.1, MCHC 33.7, RDW Std Deviation 41.1, RDW Coeff of Michaela 13.2, Plt Count 320, MPV 10.6, Immature Gran % (Auto) 0.500, Neut % (Auto) 52.7, Lymph % (Auto) 37.8, Morris % (Auto) 8.2, Eos % (Auto) 0.5, Baso % (Auto) 0.3, Absolute Neuts (auto) 8.7 H, Absolute Lymphs (auto) 6.24 H, Nucleated RBC % 0, Differential Comment SCANNED, Platelet Estimate ADEQUATE, PT 14.6, INR 1.1, APTT 25.0, Sodium 131 L, Potassium 3.7, Chloride 97 L, Carbon Dioxide 22.6, Anion Gap 12, BUN 18, Creatinine 0.66 L, Estim Creat Clear Calc 68.76, Est GFR (MDRD) Non-Af 93, BUN/Creatinine Ratio 27.8 H, Glucose 157 H, Hemoglobin A1c 9.0 H, Calcium 8.1, Troponin T High Sens 61 H*, TSH 8.220 H 06/20/25 20:32: Troponin T Hi Sens 2 Hr 53 H 06/20/25 21:08: POC Glucose 142 H 06/20/25 21:29: Troponin T Hi Sens 4Hr 73 H* 06/21/25 05:18: WBC 14.9 H, RBC 4.88, Hgb 14.3, Hct 41.4, MCV 84.8, MCH 29.3, MCHC 34.5, RDW Std Deviation 41.4, RDW Coeff of Michaela 13.3, Plt Count 329, MPV 10.6, Sodium 135, Potassium 3.9, Chloride 99, Carbon Dioxide 25.3, Anion Gap 11, BUN 15, Creatinine 0.62 L, Estim Creat Clear Calc 68.54, Est GFR (MDRD) Non-Af 94, BUN/Creatinine Ratio 24.5 H, Glucose 133 H, Calcium 8.8, Triglycerides 153, Cholesterol 224 H, LDL Cholesterol, Calc 143, VLDL Cholesterol 31, HDL Cholesterol 54, Cholesterol/HDL Ratio 4.17 Radiography Diagnostic Testing: Radiology Impression Brain CT 06/20/25 17:18 IMPRESSION: New ill-defined hypodensity at the left insular cortex may reflect subacute/chronic infarction although acute infarction is not entirely excluded. Again seen is left striatocapsular chronic infarction and left frontal and left parietal encephalomalacia from chronic infarction. The critical findings in the findings and impression above were relayed directly by me by telephone to gD Javed on 06/20/2025 at 5:52 pm with readback verification. Reading Location: [facility] Head/Neck CTA 06/20/25 17:19 IMPRESSION: Mildly worsened left M1 stenosis with approximate moderate narrowing with distal reconstitution although distal branches may have diminutive flow compared to right. Moderate stenosis of the left carotid cavernous segment and mild stenosis at the left carotid siphon due to extensive atherosclerotic plaque. The critical findings in the findings and impression above were relayed directly by me by telephone to Dg Javed on 06/20/2025 at 5:55 pm with readback verification. Reading Location: [facility] Chest X-Ray 06/20/25 17:38 IMPRESSION: No acute cardiopulmonary disease. Reading Location: [facility] Physical Exam Const alert Constitutional Narrative: expressive aphasia. Became tearful when informed of the MRI report showing a stroke. HEENT head/scalp atraumatic and moist oral mucous membranes Resp normal respiratory effort and no retractions Extremity normal to inspection and full ROM Neuro oriented x3, CN's II-XII intact bilaterally, moves all extremities, no focal motor deficits and no sensory deficits noted Sensorium / Orientation: awake, alert, oriented to person, oriented to place and oriented to time Coordination / Balance: [id number] test normal Speech: Negative for speech normal Psych affect normal Assessment & Plan Assessment/Plan (1) Stroke-like symptoms: PLAN: Plan Acute CVA MRI brain shows acute ischemia in the left insular cortex and adjacent parietal lobe. CT brain nonacute. CTA head/neck with mild worsening of known vertebral artery stenosis as below, no other concerning findings. echocardiogram done on 05/03 with EF 60%, no other significant findings noted. neurology consulted pt declined statin. Continue ASA. Carotid artery and vertebral artery disease, history of prior CVA Patient recently saw vascular surgery in the office on 05/19. Was noted that CTA head/neck results from 03/30 were reviewed and showed small caliber left vertebral artery consistent with stenosis and dominant right vertebral artery; also showed left carotid plaque with less than 50% stenosis. Compared to CTA neck images from 2018, noted to be similar in appearance. Plan was for no surgical intervention for vertebral artery stenosis in the absence of documented recurrent stroke while on maximum medical management. They recommended initiating baby aspirin and high intensity statin; patient was agreeable to starting aspirin but given concern for side effects declined the statin. Carotid duplex ultrasound on 06/12 showed mild right and left stenosis of extracranial internal carotid, and patent and antegrade vertebrals bilaterally. No apparent inpatient vascular surgery needs at this time, will hold off on consultation. Chronic conditions: Type 2 diabetes mellitus? Glucose 157 on admit. A1c 9.0%. Last A1c in our system from 2018 was 8.0%. Patient notes they have run between 8 and 9 typically. Will treat with reduced dose of Lantus 40 units at night and Humalog 8 units with meals plus sliding scale insulin while inpatient, adjust as needed. Anxiety? OARRS reviewed and patient has filled Ativan consistently since early . Continue home Ativan 1 mg 3 times daily as needed. Chronic bilateral knee pain with osteoarthritis? Recent established with Dr. Reid with pain management and had bilateral steroid injections done in the knees on Saturday 06/16. Okay for Tylenol as needed for pain control while inpatient. Class II obesity? BMI 37 on admit. Complicates hospital course and care. DVT prophylaxis: SCDs CODE STATUS: Full code, verified DW pt's at bedside. Charges/Coding Visit Charges Inpatient E&M: 36347 Subs Hosp L2 NIHSS NIHSS Nursing Documentation NIHSS Nursing Documentation: NIHSS: Ischemic Stroke/TIA Start: 06/20/25 20:53 Text: For PCU Patients: NIH and Neuro Check every 4 Status: Active hours, PRN and with change in RN caregiver. Freq: [id number] Protocol: Activity Type Activity Date Activity User E-sign Co-sign Detail Recorded Client Recorded Date Recorded By Document 06/21/25 07:20 KG [id number] 06/21/25 07:34 KG 06/21/25 07:20 NIH Stroke Scale [NIHSS] A score of 0 is normal or asymptomatic . Total possible score is 42. Inpatient: RN or Physician to activate a stroke alert for onset of new stroke symptoms or with NIHSS increase >/= 3 points. Following change in neurological status, NIHSS will be performed per physician order or more frequently PRN. -1a. Level of Consciousness 0 - Alert; keenly responsive -1b. LOC Questions 0 - Answers BOTH questions correctly -1c. LOC Commands 0 - Performs BOTH tasks correctly -2. Best Gaze 0 - Normal -3. Visual 0 - No visual loss -4. Facial Palsy 0 - Normal symmetrical movements -5a. Left Arm 0 - No drift; arm holds 90 ( or 45) degrees for full 10 seconds -5b. Right Arm 0 - No drift; arm holds 90 ( or 45) degrees for full 10 seconds -6a. Left Leg 0 - No drift; leg holds 30- degree position for full 5 seconds -6b. Right Leg 0 - No drift; leg holds 30- degree position for full 5 seconds -7. Limb Ataxia 0 - Absent -8. Sensory 0 - Normal; no sensory loss -9. Best Language 2 - Severe aphasia; -10. Dysarthria 0 - Normal -11. Extinction and Inattention 0 - No abnormality -Total 2 Query Text:A score of 0 is normal or asymptomatic. Total possible score is 42 . ED: Notify Physician for NIHSS increase by > / = 3 points. Inpatient: RN or Physician to activate a stroke alert for NIHSS increase of > / = 3 points. Coma Scale [Assess] -Eye Opening Spontaneous -Motor Obeys Commands -Verbal Oriented [Total] -Coma Scale Total 15
--- NOTE | 2025-06-21 11:11 | CASEMGMT ---
Social Work SW spoke with the patient and completed a PHQ9. Patient scored a 3. Patient was crying and upset about having a stroke. The reported the patients motor skills are not effected but her speech is effected. Patient has a supportive and family. Patient reported she sees a counselor 2 times a month for PTSD and trauma. The requested information on a medical button and SW provided this information. GATITO Narayan
--- NOTE | 2025-06-21 12:40 | CON.PCM.NE_ITS ---
Assessment and Plan: Stroke
--- NOTE | 2025-06-21 12:40 | STROKE.CONS ---
Assessment and Plan: Stroke Assessment/Plan CHUCK BLANCHARD is a 75 F with a history of Lumbar DDD, BL Knee OA, Obesity, DM, HLD (not on statin), TIAs in past (not on AP/AC), HTN, and Intrcranial atherosclerotic disease who presents with acute onset aphasia found to have acute stroke in the L cerebral hemisphere. Etiology likely BETH given known intracranial atherosclerotic disease and uncontrolled risk factors (HTN, HLD, DM) with previous refusal for AP therapy or statin. Neurological examination shows NIHSS 2 for expressive aphasia. - Recommend ASA 81 mg daily - patient has been recommended this in the past by vascular surgery due to ICAD and with history of TIAs but she has not taken it. We discussed strict adherance and trial necessity. Both patient and agreeable to continue. We discussed enteric coated tablets if she has any GI upset. - Recommend Atorvastatin - patient and are concerned about this medication, and have declined use in the past. Again we discussed importance of medication given stroke risk. Patient OK to trial Atorvastatin 40 mg qhs and if tolerates agreeable to increasing to 80 mg qhs. - Recommend strict glycemic control, A1C is 9.0 despite 66 U of basal daily. Consider endocrinology consultation. Recommend tight glycemic control and close follow up. Defer management to medical team. - Recommend vascular risk factor modification including above glycemic control, AP/Statin plan, and normotension. Lifestyle and diet modification. Counseling provided. 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 History obtained by at bedside. The patient LKW 06/19 on Thursday when she started having word finding difficulty. reports that is was initially fluctuating but worsened and persisted and thus they sought evaluation. Reports history of HTN, HLD, DM, TIAs in the past. Reports she is sensitive to medication and is currently not on any AP/AC/Statin. But is on insulin. When inquired why the patient had not followed recommendation of AP therapy in the past, they are not sure. She herself reports tolerance with ASA in the past. Currently symptoms fluctuate between being able to get words and phrases out, to yes/no. On examination she is able to eventually answer yes/no questions, name objects, and state her name. MRI with Acute ischemia in the left insular cortex and adjacent parietal lobe. Likely prior CVA with Encephalomalacia left parietal lobe and precentral gyrus. And chronic microvascular changes. CTA of Head and Neck with mildly worsened left M1 stenosis with approximate moderate narrowing with distal reconstitution, moderate stenosis of L ICA cavernous segment, and mild stenosis at L carotid siphon. Moderate stenosis of the left carotid cavernous segment and mild stenosis at the left carotid siphon due to extensive atherosclerotic plaque. [facility] Medical History Stroke/cerebrovascular accident Diabetes Home Medications ?Medication ?Instructions ?Recorded ?Last Taken ?Type insulin glargine 100 unit/mL (3 66 unit subcut QHS DIABETES 12/18/23 06/19/25 History mL) subcutaneous pen (Lantus Solostar U-100 Insulin) cholecalciferol (vitamin D3) 1,250 1,250 mcg PO QWEEK SUPPLEMENT 05/08/25 06/19/25 History mcg (50,000 unit) capsule mupirocin 2 % topical ointment 1 applic topical TID 05/08/25 Unknown History ([facility]) pen needle, diabetic 32 gauge x 05/08/25 Unknown History pen needle, diabetic 32 gauge x 05/08/25 Unknown History acetaminophen 500 mg capsule 1,000 mg PO Q6H PRN fever or pain 06/20/25 06/16/25 History clobetasol 0.05 % topical cream 1 applic topical BID PRN dry skin 06/20/25 Unknown History lorazepam 1 mg tablet 1 mg PO TID PRN anxiety 06/20/25 06/20/25 History Allergy/AdvReac Type Severity Reaction Status Date / Time caffeine AdvReac Other Verified 06/20/25 17:12 diphenhydramine (From AdvReac PT UNSURE Verified 06/20/25 17:12 Benadryl) OF REACTION prochlorperazine (From AdvReac Other Verified 06/20/25 17:12 Compazine) Surgical History Hx of cholecystectomy H/O abdominal hysterectomy Social History household members: spouse Smoking Status: Never smoker Vital Signs Vital Signs Vital Signs: 06/20/25 17:11 06/20/25 17:11 06/20/25 17:18 Temperature 97.5 F L Temperature Source Temporal Pulse Rate 106 H 106 H Pulse Strength Respiratory Rate 18 18 Respiratory Effort Respiratory Depth Respiratory Pattern Blood Pressure 224/119 H 224/119 H Blood Pressure Mean 154 154 Blood Pressure Source Blood Pressure Position Blood Pressure Location Pulse Ox 96 96 Oxygen Delivery Method Room Air Room Air Room Air 06/20/25 17:48 06/20/25 18:18 06/20/25 18:30 Temperature Temperature Source Pulse Rate 84 81 78 Pulse Strength Respiratory Rate 11 L 13 16 Respiratory Effort Respiratory Depth Respiratory Pattern Blood Pressure 186/90 H 192/75 H 201/75 H Blood Pressure Mean 122 114 117 Blood Pressure Source Blood Pressure Position Blood Pressure Location Pulse Ox 98 99 98 Oxygen Delivery Method Room Air Room Air Room Air 06/20/25 18:56 06/20/25 18:59 06/20/25 19:30 Temperature 97.8 F Temperature Source Pulse Rate 85 82 85 Pulse Strength Respiratory Rate 15 18 19 H Respiratory Effort Respiratory Depth Respiratory Pattern Blood Pressure 187/73 H 187/73 H 186/118 H Blood Pressure Mean 111 111 140 Blood Pressure Source Blood Pressure Position Blood Pressure Location Pulse Ox 95 97 97 Oxygen Delivery Method Room Air Room Air 06/20/25 20:00 06/20/25 21:00 06/20/25 21:00 Temperature 98.2 F 98.2 F Temperature Source Oral Oral Pulse Rate 72 79 79 Pulse Strength Respiratory Rate 14 18 18 Respiratory Effort Respiratory Depth Respiratory Pattern Blood Pressure 189/79 H 206/95 H 206/95 H Blood Pressure Mean 115 132 132 Blood Pressure Source Monitor Monitor Blood Pressure Position Supine Semi-Fowlers Blood Pressure Location Left Forearm Left Forearm Pulse Ox 94 95 95 Oxygen Delivery Method Room Air Room Air Room Air 06/20/25 21:00 06/20/25 22:00 06/20/25 22:30 Temperature Temperature Source Pulse Rate Pulse Strength Normal (2+) Respiratory Rate Respiratory Effort Normal Non-Labored Respiratory Depth Normal Respiratory Pattern Normal Blood Pressure 176/61 H Blood Pressure Mean 99 Blood Pressure Source Monitor Blood Pressure Position Supine Blood Pressure Location Left Arm Pulse Ox Oxygen Delivery Method Room Air 06/20/25 23:20 06/21/25 01:00 06/21/25 05:00 Temperature 97.6 F L 98.1 F Temperature Source Temporal Oral Pulse Rate 83 82 Pulse Strength Respiratory Rate 16 16 Respiratory Effort Respiratory Depth Respiratory Pattern Blood Pressure 200/55 H 170/54 H Blood Pressure Mean 103 92 Blood Pressure Source Monitor Monitor Blood Pressure Position Semi-Fowlers Semi-Fowlers Blood Pressure Location Left Arm Left Arm Pulse Ox 91 94 96 Oxygen Delivery Method Room Air Room Air Room Air 06/21/25 07:20 06/21/25 08:21 06/21/25 10:00 Temperature 99.1 F Temperature Source Oral Pulse Rate 85 Pulse Strength Normal (2+) Respiratory Rate 16 Respiratory Effort Normal Non-Labored Respiratory Depth Respiratory Pattern Blood Pressure 186/80 H Blood Pressure Mean 115 Blood Pressure Source Monitor Blood Pressure Position Supine Blood Pressure Location Pulse Ox 90 Oxygen Delivery Method Room Air Room Air 06/21/25 11:15 Temperature 99.8 F H Temperature Source Oral Pulse Rate 94 Pulse Strength Respiratory Rate 16 Respiratory Effort Respiratory Depth Respiratory Pattern Blood Pressure 151/79 H Blood Pressure Mean 103 Blood Pressure Source Monitor Blood Pressure Position Sitting Blood Pressure Location Pulse Ox 92 Oxygen Delivery Method Room Air Weight Weight: 94.7 kg Body Mass Index (BMI) 37.0 EEG Results Procedure Details EEG Procedure Details: CHUCK BLANCHARD is a 75 year old F with a past medical history of , who presents for evaluation of Electroencephalogram on DATE at TIME Lab / Micro Data 06/21/25 05:18 06/21/25 05:18 Labs: Laboratory Results - last 24 hr 06/20/25 17:13: POC Glucose 146 H 06/20/25 17:31: WBC 16.5 H, RBC 4.68, Hgb 13.6, Hct 40.3, MCV 86.1, MCH 29.1, MCHC 33.7, RDW Std Deviation 41.1, RDW Coeff of Michaela 13.2, Plt Count 320, MPV 10.6, Immature Gran % (Auto) 0.500, Neut % (Auto) 52.7, Lymph % (Auto) 37.8, Walker % (Auto) 8.2, Eos % (Auto) 0.5, Baso % (Auto) 0.3, Absolute Neuts (auto) 8.7 H, Absolute Lymphs (auto) 6.24 H, Nucleated RBC % 0, Differential Comment SCANNED, Platelet Estimate ADEQUATE, PT 14.6, INR 1.1, APTT 25.0, Sodium 131 L, Potassium 3.7, Chloride 97 L, Carbon Dioxide 22.6, Anion Gap 12, BUN 18, Creatinine 0.66 L, Estim Creat Clear Calc 68.76, Est GFR (MDRD) Non-Af 93, BUN/Creatinine Ratio 27.8 H, Glucose 157 H, Hemoglobin A1c 9.0 H, Calcium 8.1, Troponin T High Sens 61 H*, TSH 8.220 H 06/20/25 20:32: Troponin T Hi Sens 2 Hr 53 H 06/20/25 21:08: POC Glucose 142 H 06/20/25 21:29: Troponin T Hi Sens 4Hr 73 H* 06/21/25 05:18: WBC 14.9 H, RBC 4.88, Hgb 14.3, Hct 41.4, MCV 84.8, MCH 29.3, MCHC 34.5, RDW Std Deviation 41.4, RDW Coeff of Michaela 13.3, Plt Count 329, MPV 10.6, Sodium 135, Potassium 3.9, Chloride 99, Carbon Dioxide 25.3, Anion Gap 11, BUN 15, Creatinine 0.62 L, Estim Creat Clear Calc 68.54, Est GFR (MDRD) Non-Af 94, BUN/Creatinine Ratio 24.5 H, Glucose 133 H, Calcium 8.8, Triglycerides 153, Cholesterol 224 H, LDL Cholesterol, Calc 143, VLDL Cholesterol 31, HDL Cholesterol 54, Cholesterol/HDL Ratio 4.17 06/21/25 08:17: POC Glucose 152 H 06/21/25 11:26: POC Glucose 222 H Imaging Radiology Impression Brain CT 06/20/25 17:18 IMPRESSION: New ill-defined hypodensity at the left insular cortex may reflect subacute/chronic infarction although acute infarction is not entirely excluded. Again seen is left striatocapsular chronic infarction and left frontal and left parietal encephalomalacia from chronic infarction. The critical findings in the findings and impression above were relayed directly by me by telephone to Dg Javed on 06/20/2025 at 5:52 pm with readback verification. Reading Location: [facility] Head/Neck CTA 06/20/25 17:19 IMPRESSION: Mildly worsened left M1 stenosis with approximate moderate narrowing with distal reconstitution although distal branches may have diminutive flow compared to right. Moderate stenosis of the left carotid cavernous segment and mild stenosis at the left carotid siphon due to extensive atherosclerotic plaque. The critical findings in the findings and impression above were relayed directly by me by telephone to Dg Javed on 06/20/2025 at 5:55 pm with readback verification. Reading Location: [facility] Chest X-Ray 06/20/25 17:38 IMPRESSION: No acute cardiopulmonary disease. Reading Location: [facility] Brain MRI 06/21/25 19:48 IMPRESSION: 1. Acute ischemia in the left insular cortex and adjacent parietal lobe. 2. Encephalomalacia left parietal lobe and precentral gyrus. 3. Chronic microvascular ischemic changes, mild volume loss. [place] Alert: Ischemia The critical findings in the findings and impression above were relayed directly by me by telephone to Griffin Ruiz on 06/21/2025 at 9:42 am with readback verification. Reading Location: [facility] Active Medications Active Medications Active Medications: Current Medications Generic Name Dose Route Start Last Admin Trade Name Freq PRN Reason Stop Dose Admin Acetaminophen 650 mg 06/20/25 20:53 Acetaminophen 325 Mg Tablet PO Q6H PRN PRN Pain 1-10 Or Fever>100.7 Aspirin 81 mg 06/21/25 08:00 06/21/25 10:16 Aspirin 81 Mg Tab.Chew PO 81 mg BREAKFAST JUAN C Administration Glucagon 1 mg 06/20/25 20:53 Glucagon 1 Mg/Ml Syringe IM X1 PRN Hypoglycemia Protocol Hydralazine HCl 5 mg 06/20/25 20:53 Hydralazine 20 Mg/Ml Vial IV 06/21/25 20:53 Q30M PRN maintain BP parameters with HR <60 Dextrose 250 mls @ 0 mls/hr 06/20/25 20:53 Dextrose 10%-Water IV .Q0M PRN HYPOGLYCEMIA Protocol As Directed Sodium Chloride 250 mls @ 15 mls/hr 06/20/25 21:40 IV .[id number] PRN Saline Flush Sodium Chloride 250 mls @ 15 mls/hr 06/20/25 21:40 IV .[id number] PRN Additional IVPB Infusion Insulin Glargine 40 unit 06/20/25 22:00 06/20/25 21:33 Insulin Glargine-Yfgn 100 Unit/Ml Pen SC 40 unit QHS [facility] Administration Protocol Insulin Human Lispro 0 unit 06/20/25 22:00 06/21/25 10:16 Insulin Lispro 100 Unit/Ml Insuln.Pen SC 2 u ACHS [facility] Administration Protocol Insulin Human Lispro 8 unit 06/21/25 07:00 06/21/25 10:16 Insulin Lispro 100 Unit/Ml Insuln.Pen SC 8 u TIDAC [facility] Administration Protocol Labetalol HCl 20 mg 06/20/25 17:18 Labetalol 20 Mg/4 Ml Vial IV 06/21/25 17:18 X1 PRN BLOOD PRESSURE Labetalol HCl 10 - 20 mg 06/20/25 20:53 Labetalol 20 Mg/4 Ml Vial IV 06/21/25 20:53 Q10M PRN PRN maintain BP parameters with HR >/=60 Lorazepam 1 mg 06/20/25 20:53 06/21/25 01:36 Lorazepam 1 Mg Tablet PO 1 mg TID PRN PRN Administration ANXIETY Melatonin 3 mg 06/20/25 20:53 Melatonin 3 Mg Tablet PO QHS PRN PRN INSOMNIA Ondansetron HCl 4 mg 06/20/25 20:53 Ondansetron 4 Mg/2 Ml Vial IV Q8H PRN PRN NAUSEA/VOMITING Sodium Chloride 10 - 40 ml 06/20/25 21:40 0.9% Saline Lock 10 Ml Syringe IV UD PRN SALINE FLUSH NIHSS NIHSS Nursing Documentation NIHSS Nursing Documentation: NIHSS: Ischemic Stroke/TIA Start: 06/20/25 20:53 Text: For PCU Patients: NIH and Neuro Check every 4 Status: Active hours, PRN and with change in RN caregiver. Freq: [id number] Protocol: Activity Type Activity Date Activity User E-sign Co-sign Detail Recorded Client Recorded Date Recorded By Document 06/21/25 11:15 KG [id number] 06/21/25 11:27 KG 06/21/25 11:15 NIH Stroke Scale [NIHSS] A score of 0 is normal or asymptomatic . Total possible score is 42. Inpatient: RN or Physician to activate a stroke alert for onset of new stroke symptoms or with NIHSS increase >/= 3 points. Following change in neurological status, NIHSS will be performed per physician order or more frequently PRN. -1a. Level of Consciousness 0 - Alert; keenly responsive -1b. LOC Questions 0 - Answers BOTH questions correctly -1c. LOC Commands 0 - Performs BOTH tasks correctly -2. Best Gaze 0 - Normal -3. Visual 0 - No visual loss -4. Facial Palsy 0 - Normal symmetrical movements -5a. Left Arm 0 - No drift; arm holds 90 ( or 45) degrees for full 10 seconds -5b. Right Arm 0 - No drift; arm holds 90 ( or 45) degrees for full 10 seconds -6a. Left Leg 0 - No drift; leg holds 30- degree position for full 5 seconds -6b. Right Leg 0 - No drift; leg holds 30- degree position for full 5 seconds -7. Limb Ataxia 0 - Absent -8. Sensory 0 - Normal; no sensory loss -9. Best Language 1 - Mild-to- moderate aphasia; -10. Dysarthria 0 - Normal -11. Extinction and Inattention 0 - No abnormality -Total 1 Query Text:A score of 0 is normal or asymptomatic. Total possible score is 42 . ED: Notify Physician for NIHSS increase by > / = 3 points. Inpatient: RN or Physician to activate a stroke alert for NIHSS increase of > / = 3 points. Coma Scale [Assess] -Eye Opening Spontaneous -Motor Obeys Commands -Verbal Oriented [Total] -Coma Scale Total 15 NIHSS 1a. Level of Consciousness: 0 - Alert; keenly responsive 1b. LOC Questions: 1 - Answers ONE question correctly 1c. LOC Commands: 0 - Performs BOTH tasks correctly 2. Best Gaze: 0 - Normal 3. Visual: 0 - No visual loss 4. Facial Palsy: 0 - Normal symmetrical movements 5a. Left Arm: 0 - No drift; arm holds 90 (or 45) degrees for full 10 seconds 5b. Right Arm: 0 - No drift; arm holds 90 (or 45) degrees for full 10 seconds 6a. Left Le - No drift; leg holds 30-degree position for full 5 seconds 6b. Right Le - No drift; leg holds 30-degree position for full 5 seconds 7. Limb Ataxia: 0 - Absent 8. Sensory: 0 - Normal; no sensory loss 9. Best Language: 1 - [id number] aphasia; 10. Dysarthria: 0 - Normal 11. Extinction and Inattention: 0 - No abnormality Total: 2
--- NOTE | 2025-06-21 14:26 | PCM.DC.SUM ---
Providers Date of Admission: 06/20/25 Primary Care Physician: Dr. Yusuf Vickers MD Consultations 06/20/25 20:53 Consult: Tele-Neurology Routine Consulting Provider: [facility] Reason for Consult: Acute Ischemic Stroke/TIA EMERGENT Consult: No MD Notified: Yes Date Notified: 06/20/25 Time Notified: 21:44 Method of Notification: Answering Service Method of Consult:: Telemedicine Nursing Unit Staff Notify [facility] of Tele-Neurology Consult: Yes Reason For Visit: STROKELIKE SYMPTOMS Diagnosis Discharge Diagnosis (1) Stroke-like symptoms: Status: Acute Code(s): R29.90 - Unspecified symptoms and signs involving the nervous system Plan Acute CVA MRI brain shows acute ischemia in the left insular cortex and adjacent parietal lobe. CT brain nonacute. CTA head/neck with mild worsening of known vertebral artery stenosis as below, no other concerning findings. echocardiogram done on 05/03 with EF 60%, no other significant findings noted. neurology consulted pt declined statin. Continue ASA. Follow up with neurology as outpt. Follow up with speech therapy. Carotid artery and vertebral artery disease, history of prior CVA Patient recently saw vascular surgery in the office on 05/19. Was noted that CTA head/neck results from 03/30 were reviewed and showed small caliber left vertebral artery consistent with stenosis and dominant right vertebral artery; also showed left carotid plaque with less than 50% stenosis. Compared to CTA neck images from 2018, noted to be similar in appearance. Plan was for no surgical intervention for vertebral artery stenosis in the absence of documented recurrent stroke while on maximum medical management. They recommended initiating baby aspirin and high intensity statin; patient was agreeable to starting aspirin but given concern for side effects declined the statin. Carotid duplex ultrasound on 06/12 showed mild right and left stenosis of extracranial internal carotid, and patent and antegrade vertebrals bilaterally. No apparent inpatient vascular surgery needs at this time, will hold off on consultation. Chronic conditions: Type 2 diabetes mellitus? Glucose 157 on admit. A1c 9.0%. Last A1c in our system from 2018 was 8.0%. Patient notes they have run between 8 and 9 typically. Will treat with reduced dose of Lantus 40 units at night and Humalog 8 units with meals plus sliding scale insulin while inpatient, adjust as needed. Anxiety? OARRS reviewed and patient has filled Ativan consistently since early . Continue home Ativan 1 mg 3 times daily as needed. Chronic bilateral knee pain with osteoarthritis? Recent established with Dr. Reid with pain management and had bilateral steroid injections done in the knees on Saturday 06/16. Okay for Tylenol as needed for pain control while inpatient. Class II obesity? BMI 37 on admit. Complicates hospital course and care. CODE STATUS: Full code, verified DW pt's at bedside. Medications at Discharge Home Medications insulin glargine 100 unit/mL (3 mL) subcutaneous pen (Lantus Solostar U-100 Insulin) 66 unit subcut QHS DIABETES 12/18/23 cholecalciferol (vitamin D3) 1,250 mcg (50,000 unit) capsule 1,250 mcg PO QWEEK SUPPLEMENT 05/08/25 mupirocin 2 % topical ointment (Centany) 1 applic topical TID 05/08/25 pen needle, diabetic 32 gauge x 05/08/25 pen needle, diabetic 32 gauge x 05/08/25 acetaminophen 500 mg capsule 1,000 mg PO Q6H PRN fever or pain 06/20/25 clobetasol 0.05 % topical cream 1 applic topical BID PRN dry skin 06/20/25 lorazepam 1 mg tablet 1 mg PO TID PRN anxiety 06/20/25 aspirin 81 mg chewable tablet 81 mg PO BREAKFAST #0 tabs 06/21/25 atorvastatin 40 mg tablet (Lipitor) 40 mg PO QHS #60 tabs 06/21/25 Hospital Course Operations None Procedures 2-D Echocardiogram Summary of Care Provided Hospital Course: Greater than 30-minutes spent on discharge. Weight / BMI Weight Weight: 94.7 kg Body Mass Index (BMI) 37.0 ABG / Lab / Microbiology Data 06/21/25 05:18 06/21/25 05:18 Laboratory: Laboratory Results - last 24 hr 06/20/25 17:13: POC Glucose 146 H 06/20/25 17:31: WBC 16.5 H, RBC 4.68, Hgb 13.6, Hct 40.3, MCV 86.1, MCH 29.1, MCHC 33.7, RDW Std Deviation 41.1, RDW Coeff of Michaela 13.2, Plt Count 320, MPV 10.6, Immature Gran % (Auto) 0.500, Neut % (Auto) 52.7, Lymph % (Auto) 37.8, Wells % (Auto) 8.2, Eos % (Auto) 0.5, Baso % (Auto) 0.3, Absolute Neuts (auto) 8.7 H, Absolute Lymphs (auto) 6.24 H, Nucleated RBC % 0, Differential Comment SCANNED, Platelet Estimate ADEQUATE, PT 14.6, INR 1.1, APTT 25.0, Sodium 131 L, Potassium 3.7, Chloride 97 L, Carbon Dioxide 22.6, Anion Gap 12, BUN 18, Creatinine 0.66 L, Estim Creat Clear Calc 68.76, Est GFR (MDRD) Non-Af 93, BUN/Creatinine Ratio 27.8 H, Glucose 157 H, Hemoglobin A1c 9.0 H, Calcium 8.1, Troponin T High Sens 61 H*, TSH 8.220 H 06/20/25 20:32: Troponin T Hi Sens 2 Hr 53 H 06/20/25 21:08: POC Glucose 142 H 06/20/25 21:29: Troponin T Hi Sens 4Hr 73 H* 06/21/25 05:18: WBC 14.9 H, RBC 4.88, Hgb 14.3, Hct 41.4, MCV 84.8, MCH 29.3, MCHC 34.5, RDW Std Deviation 41.4, RDW Coeff of Michaela 13.3, Plt Count 329, MPV 10.6, Sodium 135, Potassium 3.9, Chloride 99, Carbon Dioxide 25.3, Anion Gap 11, BUN 15, Creatinine 0.62 L, Estim Creat Clear Calc 68.54, Est GFR (MDRD) Non-Af 94, BUN/Creatinine Ratio 24.5 H, Glucose 133 H, Calcium 8.8, Triglycerides 153, Cholesterol 224 H, LDL Cholesterol, Calc 143, VLDL Cholesterol 31, HDL Cholesterol 54, Cholesterol/HDL Ratio 4.17 06/21/25 08:17: POC Glucose 152 H 06/21/25 11:26: POC Glucose 222 H Radiography Diagnostic Testing: Radiology Impression Brain CT 06/20/25 17:18 IMPRESSION: New ill-defined hypodensity at the left insular cortex may reflect subacute/chronic infarction although acute infarction is not entirely excluded. Again seen is left striatocapsular chronic infarction and left frontal and left parietal encephalomalacia from chronic infarction. The critical findings in the findings and impression above were relayed directly by me by telephone to Dg Javed on 06/20/2025 at 5:52 pm with readback verification. Reading Location: [facility] Head/Neck CTA 06/20/25 17:19 IMPRESSION: Mildly worsened left M1 stenosis with approximate moderate narrowing with distal reconstitution although distal branches may have diminutive flow compared to right. Moderate stenosis of the left carotid cavernous segment and mild stenosis at the left carotid siphon due to extensive atherosclerotic plaque. The critical findings in the findings and impression above were relayed directly by me by telephone to Dg Javed on 06/20/2025 at 5:55 pm with readback verification. Reading Location: [facility] Chest X-Ray 06/20/25 17:38 IMPRESSION: No acute cardiopulmonary disease. Reading Location: [facility] Brain MRI 06/21/25 19:48 IMPRESSION: 1. Acute ischemia in the left insular cortex and adjacent parietal lobe. 2. Encephalomalacia left parietal lobe and precentral gyrus. 3. Chronic microvascular ischemic changes, mild volume loss. [place] Alert: Ischemia The critical findings in the findings and impression above were relayed directly by me by telephone to Griffin Ruiz on 06/21/2025 at 9:42 am with readback verification. Reading Location: [facility] D/C Instructions DC O2, CPAP, BIPAP Needs Home O2 Discharge instructions: No Meaningful Use Info Meaningful Use Meaningful Use Diagnoses (Choose all that apply): Ischemic CVA CVA Therapy Assessed for PT,OT and/or ST?: Yes Ischemic Stroke Antithrombotic order at d/c?: Yes Dx of Atrial fib/flutter?: No Anticoagulant at discharge?: No Reason anticoagulant not ordered: Treatment not Indicated Statins at discharge?: Yes If patient is 75 or younger, pt will be discharged on HIGH intensity statin.: No High intensity statin for patient 75 or younger not ordered due to: pt hesitancy to start high-dose statin. Primary Dx Acute Ischemic CVA?: Yes IV thrombolytic ordered during stay?: No Reason IV thrombolytic not ordered: Treatment not Indicated Discharge Plan Admission Admit Date/Time: 06/20/25 19:45 Primary Reason for Your Visit: Stroke Attending Provider: Dg Monroe Primary Care Provider: Yusuf Vickers Consulting Providers: Kevin Hernandez; Clark Cedillo; Britt Martinez; Jerri Diamond; Violet Ferrer; Michael Cuellar; Tonia Alanis; Pb Méndez; Fabián Abebe; Jayy Rios; Cristina Milton; Lashaun Ritchie; Rj Montoya; Bessie Rose; Johnny Carrasquillo; Miguel Donovan; Lamine Thompson; Gail Castro; Gaston Biswas; Aminta Gan; Santi Medina; Nicanor Law Instructions Additional Instructions / Restrictions: You had a stroke (left parietal lobe) that has affected you speech. To help prevent another stroke, neurology has advised aspirin 81mg (aka, baby aspirin) daily, atorvastatin (aka Lipitor) 40mg at night, and if after 2 weeks, increase that to 80mg at night. Follow up with neurology, vascular surgery and speech therapy. Also, your diabetes could use further improvment and it is advised to follow up with endocrinology as outpt. Discharge Orders/Prescriptions Prescriptions: New aspirin 81 mg Tablet,Chewable 81 mg PO BREAKFAST Qty: 0 0RF atorvastatin [Lipitor] 40 mg tablet 40 mg PO QHS Qty: 60 0RF Rx Instructions: 1 tablet at night for 2 weeks, if tolerated, increase to 2 tablets at night. Continued insulin glargine [Lantus Solostar U-100 Insulin] 100 unit/mL (3 mL) insulin pen 66 unit subcut QHS mupirocin [Centany] 2 % ointment 1 applic topical TID cholecalciferol (vitamin D3) 1,250 mcg (50,000 unit) capsule 1,250 mcg PO QWEEK (DME) pen needle, diabetic 32 gauge x 5/32 needle See Rx Instructions .ROUTE Rx Instructions: As directed (DME) pen needle, diabetic 32 gauge x 5/32 needle See Rx Instructions .ROUTE Rx Instructions: As directed lorazepam 1 mg tablet 1 mg PO TID PRN (Reason: anxiety) acetaminophen 500 mg capsule 1,000 mg PO Q6H PRN (Reason: fever or pain) clobetasol 0.05 % cream 1 applic topical BID PRN (Reason: dry skin) Other Ambulatory Orders: Speech Therapy Evaluation (Routine) Location: None Selected Ordered By: Dr. Dg Monroe Referrals / Follow Up: [facility] [Provider Group] - Within 1 Month Yusuf Vickers MD [Primary Care Provider, Family Practice] - Within 2 Weeks Disposition Disposition (needs filled in before D/C Order can be placed): Home, Self Care Charges/Coding Visit Charges Inpatient E&M: 45062 Disch Hosp >30min
--- NOTE | 2025-06-21 16:04 | CT_ITS ---
PROCEDURE: CT/Brain/Head without Contrast
--- NOTE | 2025-06-21 19:48 | MRI_ITS ---
PROCEDURE: MRI/Brain without Contrast
--- NOTE | 2025-06-21 21:05 | PCM.HOSP.N ---
Documented by User: BUSHRA Montaño 06/21/25 21:32 Hospitalist Note Notified by nursing staff of continual increase in NIHSS. On previous shift patient's NIH score was 1 at 11:15 AM and then progressed to an NIH score of 4 at 3:15 PM, at which time a brain CT was repeated. Brain CT impression discusses evolving left insular cortex and left parietal lobe infarctions. No evidence of hemorrhagic conversion. Performed NIHSS myself, currently 6, with moderate aphasia, altering sensation to extremities, mild ataxia. Fingerstick glucometer 114. Last documented blood pressure 117/103 with a heart rate of 75 performed at 1915 with last NIH assessment at nursing shift change. In reviewing patient's blood pressure throughout today and yesterday, her systolic has consistently been 150s to 180s. Suspect systolic of 117 to have caused hypoperfusion to cerebral tissue with resulting increase in neurological deficits. No current antihypertensives ordered. Call placed to [facility] teleneurology, reviewed findings with Dr. Cuellar. He is in agreement with the hypoperfusion to cerebral tissue for reason of increasing NIHSS. He recommends bolusing 1 L of fluids, I opted for normal saline, and keeping patient supine. We discussed antiplatelet therapy and noted that she is currently only on aspirin, he recommends clopidogrel 150 mg p.o. x 1 now, and clopidogrel 75 mg p.o. daily starting tomorrow AM in addition to daily aspirin. Patient's spouse is at bedside, I did review my discussion with the neurologist with him and explained her worsening symptoms. Patient's spouse admits that she has not been drinking enough fluids today, but has had a good appetite for food. Explained to them both the reasoning for ordering IV fluids, medications and orthostatic vital signs. Neither have further questions or concerns at this time. Documented by User: Dr. Santa Gan DO 06/21/25 22:20 Hospitalist Note Notified by nursing staff of continual increase in NIHSS. On previous shift patient's NIH score was 1 at 11:15 AM and then progressed to an NIH score of 4 at 3:15 PM, at which time a brain CT was repeated. Brain CT impression discusses evolving left insular cortex and left parietal lobe infarctions. No evidence of hemorrhagic conversion. Performed NIHSS myself, currently 6, with moderate aphasia, altering sensation to extremities, mild ataxia. Fingerstick glucometer 114. Last documented blood pressure 117/103 with a heart rate of 75 performed at 1915 with last NIH assessment at nursing shift change. In reviewing patient's blood pressure throughout today and yesterday, her systolic has consistently been 150s to 180s. Suspect systolic of 117 to have caused hypoperfusion to cerebral tissue with resulting increase in neurological deficits. No current antihypertensives ordered. Call placed to [facility] tele-neurology, reviewed findings with Dr. Cuellar. He is in agreement with the hypoperfusion to cerebral tissue for reason of increasing NIHSS. He recommends bolusing 1 L of fluids, I opted for normal saline, and keeping patient supine. We discussed antiplatelet therapy and noted that she is currently only on aspirin, he recommends clopidogrel 150 mg p.o. x 1 now, and clopidogrel 75 mg p.o. daily starting tomorrow AM in addition to daily aspirin. Patient's spouse is at bedside, I did review my discussion with the neurologist with him and explained her worsening symptoms. Patient's spouse admits that she has not been drinking enough fluids today, but has had a good appetite for food. Explained to them both the reasoning for ordering IV fluids, medications and orthostatic vital signs. Neither have further questions or concerns at this time. Physician Addendum: Agree with the above assessment and POC. PUTTY MIXER discussed case with me throughout the care of the patient. Will continue to allow for permissive HTN and consider rebolus if BP drops again. BGT up this am and pt is on only 40 units of basal insulin with home dose of 66 u. BGT > 200 so will increase basal insulin to 50 units with 10u given now as 40 was already given. Continue NIH.
[2025-06-21] MEDS: Insulin Glargine-YFGN 100 UNIT/ML Pen 40 UNIT SC (21:46)
[2025-06-21] MEDS: 0.9% Normal Saline (1000mL) 1,000 ML 999 ML IV (21:46)
[2025-06-21] MEDS: Insulin Glargine-YFGN 100 UNIT/ML Pen 10 UNIT SC (23:05)
[2025-06-22] VITALS (8 sets, daily range): BP systolic 160–188; BP diastolic 51–76; PULSE 69–87; RESP 16–20; TEMP 36.1–36.9; O2SAT 93–100; BMI 37.0
--- NOTE | 2025-06-22 07:41 | PN.HOSP_ITS ---
Reason for Visit
--- NOTE | 2025-06-22 07:41 | PCM.PN.HOSP ---
Reason for Visit Chief Complaint: Strokelike symptoms Subjective Subjective Discharge cancelled yesterday given worsening symptoms. Became aphasic, per nursing. Today, she is able to simple one-word answers. Objective Data Objective Data Vital Signs: Vital Signs Temp Pulse Resp BP Pulse Ox O2 Del Method 36.6 C 84 16 160/64 H 100 Room Air 06/22/25 07:00 06/22/25 07:00 06/22/25 07:00 06/22/25 07:00 06/22/25 07:00 06/22/25 07:00 Oxygen Delivery Method Room Air Weight: 94.7 kg Body Mass Index (BMI) 37.0 Intake & Output: Intake and Output for Last 24 Hours 06/20/25 06/21/25 06/22/25 23:59 23:59 23:59 Intake Total 1000 / 1000 Balance 1000 / 1000 Lab / Micro Data 06/21/25 05:18 06/21/25 05:18 Labs: Laboratory Results - last 24 hr 06/21/25 08:17: POC Glucose 152 H 06/21/25 11:26: POC Glucose 222 H 06/21/25 15:30: POC Glucose 94 06/21/25 17:31: POC Glucose 147 H 06/21/25 20:30: POC Glucose 114 H Radiography Diagnostic Testing: Radiology Impression Brain CT 06/21/25 16:04 IMPRESSION: Involving left insular cortex and left parietal lobe infarctions. No evidence of hemorrhagic transformation. Reading Location: [facility] Brain MRI 06/21/25 19:48 IMPRESSION: 1. Acute ischemia in the left insular cortex and adjacent parietal lobe. 2. Encephalomalacia left parietal lobe and precentral gyrus. 3. Chronic microvascular ischemic changes, mild volume loss. [place] Alert: Ischemia The critical findings in the findings and impression above were relayed directly by me by telephone to Griffin Ruiz on 06/21/2025 at 9:42 am with readback verification. Reading Location: [facility] Physical Exam Const alert Constitutional Narrative: still with expressive aphasia and does have some difficulty understanding some instructions (e.g., patient instructed to hold her arms up and close her eyes. She could do them separately, but not together) HEENT head/scalp atraumatic and moist oral mucous membranes Resp normal respiratory effort and no retractions Extremity normal to inspection, full ROM and no clubbing, cyanosis or edema Neuro moves all extremities, no focal motor deficits and no sensory deficits noted Neuro Narrative: expressive and receptive aphasia. Sensorium / Orientation: awake Assessment & Plan Assessment/Plan (1) Stroke-like symptoms: PLAN: Plan Acute CVA MRI brain shows acute ischemia in the left insular cortex and adjacent parietal lobe. Repeat MRI brain showed acute ischemia in the left insular cortex and adjacent parietal lobe. CT brain nonacute. CTA head/neck with mild worsening of known vertebral artery stenosis as below, no other concerning findings. echocardiogram done on 05/03 with EF 60%, no other significant findings noted. neurology consulted Worsening symptoms on the . Received 150mg clopidogrel and started on clopidogrel. Concerning for hypoperfusion and given IVF. Pt and concerned about a decrease in her blood sugar from the 200s to 90s, since her glucose is normally elevated. Will give additional IVF and monitor. Carotid artery and vertebral artery disease, history of prior CVA Patient recently saw vascular surgery in the office on 05/19. Was noted that CTA head/neck results from 03/30 were reviewed and showed small caliber left vertebral artery consistent with stenosis and dominant right vertebral artery; also showed left carotid plaque with less than 50% stenosis. Compared to CTA neck images from 2018, noted to be similar in appearance. Plan was for no surgical intervention for vertebral artery stenosis in the absence of documented recurrent stroke while on maximum medical management. They recommended initiating baby aspirin and high intensity statin; patient was agreeable to starting aspirin but given concern for side effects declined the statin. Carotid duplex ultrasound on 06/12 showed mild right and left stenosis of extracranial internal carotid, and patent and antegrade vertebrals bilaterally. No apparent inpatient vascular surgery needs at this time, will hold off on consultation. Chronic conditions: Type 2 diabetes mellitus? Glucose 157 on admit. A1c 9.0%. Last A1c in our system from 2018 was 8.0%. Patient notes they have run between 8 and 9 typically. Will treat with reduced dose of Lantus 40 units at night and Humalog 8 units with meals plus sliding scale insulin while inpatient, adjust as needed. Anxiety? OARRS reviewed and patient has filled Ativan consistently since early . Continue home Ativan 1 mg 3 times daily as needed. Chronic bilateral knee pain with osteoarthritis? Recent established with Dr. Reid with pain management and had bilateral steroid injections done in the knees on Saturday 06/16. Okay for Tylenol as needed for pain control while inpatient. Class II obesity? BMI 37 on admit. Complicates hospital course and care. DVT prophylaxis: SCDs CODE STATUS: Full code, verified DW patient's at bedside. Disposition: monitor overnight given the worsening she experienced last evening. If stable, or hopefully improved, then discharge home with speech therapy follow up. Charges/Coding Visit Charges Inpatient E&M: 11244 Subs Hosp L2 NIHSS NIHSS Nursing Documentation NIHSS Nursing Documentation: NIHSS: Ischemic Stroke/TIA Start: 06/20/25 20:53 Text: For PCU Patients: NIH and Neuro Check every 4 Status: Active hours, PRN and with change in RN caregiver. Freq: [id number] Protocol: Activity Type Activity Date Activity User E-sign Co-sign Detail Recorded Client Recorded Date Recorded By Document 06/22/25 07:00 KG [id number] 06/22/25 07:09 KG 06/22/25 07:00 NIH Stroke Scale [NIHSS] A score of 0 is normal or asymptomatic . Total possible score is 42. Inpatient: RN or Physician to activate a stroke alert for onset of new stroke symptoms or with NIHSS increase >/= 3 points. Following change in neurological status, NIHSS will be performed per physician order or more frequently PRN. -1a. Level of Consciousness 0 - Alert; keenly responsive -1b. LOC Questions 0 - Answers BOTH questions correctly -1c. LOC Commands 0 - Performs BOTH tasks correctly -2. Best Gaze 0 - Normal -3. Visual 0 - No visual loss -4. Facial Palsy 0 - Normal symmetrical movements -5a. Left Arm 0 - No drift; arm holds 90 ( or 45) degrees for full 10 seconds -5b. Right Arm 0 - No drift; arm holds 90 ( or 45) degrees for full 10 seconds -6a. Left Leg 0 - No drift; leg holds 30- degree position for full 5 seconds -6b. Right Leg 0 - No drift; leg holds 30- degree position for full 5 seconds -7. Limb Ataxia 0 - Absent -8. Sensory 0 - Normal; no sensory loss -9. Best Language 2 - Severe aphasia; -10. Dysarthria 0 - Normal -11. Extinction and Inattention 0 - No abnormality -Total 2 Query Text:A score of 0 is normal or asymptomatic. Total possible score is 42 . ED: Notify Physician for NIHSS increase by > / = 3 points. Inpatient: RN or Physician to activate a stroke alert for NIHSS increase of > / = 3 points. Coma Scale [Assess] -Eye Opening Spontaneous -Motor Obeys Commands -Verbal Oriented [Total] -Coma Scale Total 15
[2025-06-22] MEDS: 0.9% Normal Saline (1000mL) 1,000 ML 125 ML IV (09:31)
[2025-06-22] MEDS: 0.9% Saline Lock 10 ML Syringe IV (09:33)
--- NOTE | 2025-06-22 09:33 | CASEMGMT ---
RAMIREZ Met with patient to complete RAMIREZ form. RAMIREZ form and its content were verbally explained and patient's questions were answered to the best of my ability.? Patient voiced understanding and signed RAMIREZ form.? Patient provided a copy of signed RAMIREZ form and original placed in patient's chart.? Patient had no further questions. Jacey Santana, Discharge Planning Asst
--- NOTE | 2025-06-22 12:38 | CASEMGMT ---
LUBA GERMAIN Assessment Face to Face with patient for initial transition planning/care coordination assessment. LUBA GERMAIN introduced self and role at [facility], pt voices understanding. Pt is A&Ox4 and is resting comfortably in bed and is calm. Pt's is at the bedside and is willing to help due to the pt's aphasia. Care providers, pharmacy, and demographics verified. Admitting dx: Stroke-like symptoms LACE Strata: 2 PCP: Yusuf Vickers Specialists: Franklin (PM) Preferred Pharmacy: [facility] Insurance: [employer] Prescription Benefit: Yes LNOK: Josh (H), Melanie (Daughter) Living Arrangements: Pt lives with her in a single story home with 3 steps to enter ADLs/IADLs: Pt is indep at baseline Transportation: Self, . Denies concerns DME: Glucometer with sufficient testing supplies including lancets, tests strips, EtOH swabs, and Pen needles for insulin shots. Access to a cane HHC/SNF: Denies hx of or needs Pt?s goal: Home Plan: Home with OP ST as recommended by ST. Rx signed by Dr Monroe for OP ST. This mortgage underwriter discussed local options with the pt and pt's . Pt's states that they have been to [facility] in the past and that they prefer that location. Pt's states that they prefer to make their own appt. Copy of OP ST Rx placed in chart. Original Rx handed to the pt's at this time. Pt and pt's SO deny further questions, concerns, or needs. Jarrell Hampton RN, CM
--- NOTE | 2025-06-22 15:59 | CHAPLAIN ---
Type of Pastoral Visit ___ Initial Visit ___ Follow-up Visit ___ On-call Visit ___ General Patient Visit ___ Spiritual Assessment ___ Family Conference ___ Bereavement ___ Rapid Response ___ Code Blue ___ Other (describe below) Pastoral Care Referral From ___ Patient ___ Family ___ Nurse ___ Physician ___ Repair Specialist ___ Devops Engineer ___ Other (describe below) Sacrament/Intervention ___ Active listening ___ Anointing ___ Hindu ___ Bereavement ___ Communion ___ Romelia exploration ___ ___ Life review ___ Prayer ___ Reconciliation ___ Sacrament of Sick ___ Supportive presence ___ Wedding ___ Other (describe below) Pastoral Comments patient is sleeping; spouse is at bedside; spouse requests a visit at another time since pt is sleeping and she has had difficulty doing so until now
[2025-06-22] MEDS: Insulin Glargine-YFGN 100 UNIT/ML Pen 50 UNIT SC (22:08)
[2025-06-23 02:00] VITALS: BP 167/56; PULSE 73; RESP 16; TEMP 36.3; O2SAT 95
[2025-06-23 04:40] VITALS: BMI 37.0
[2025-06-23 04:41] VITALS: BMI 37.0
[2025-06-23 06:13] VITALS: BP 187/72; PULSE 73; RESP 18; TEMP 35.9; O2SAT 97
--- NOTE | 2025-06-23 10:40 | PN.HOSP_ITS ---
Reason for Visit
--- NOTE | 2025-06-23 10:40 | PCM.PN.HOSP ---
Reason for Visit Chief Complaint: Strokelike symptoms Subjective Subjective Speech is overall improving. Able to put words together for sentences. Objective Data Objective Data Vital Signs: Vital Signs Temp Pulse Resp BP Pulse Ox O2 Del Method 35.9 C L 73 18 187/72 H 97 Room Air 06/23/25 06:13 06/23/25 06:13 06/23/25 06:13 06/23/25 06:13 06/23/25 06:13 06/23/25 09:16 Oxygen Delivery Method Room Air Weight: 94.7 kg Body Mass Index (BMI) 37.0 Intake & Output: Intake and Output for Last 24 Hours 06/21/25 06/22/25 06/23/25 23:59 23:59 23:59 Intake Total 1000 / 1000 1240 / 1240 Balance 1000 / 1000 1240 / 1240 Lab / Micro Data 06/21/25 05:18 06/21/25 05:18 Labs: Laboratory Results - last 24 hr 06/22/25 11:31: POC Glucose 140 H 06/22/25 16:56: POC Glucose 164 H 06/22/25 22:05: POC Glucose 135 H 06/23/25 08:29: POC Glucose 143 H Physical Exam Const Constitutional Narrative: Up in chair. Smiling. Putting together words and sentences that are coherent. Still with word finding difficulties at times. HEENT head/scalp atraumatic and moist oral mucous membranes Assessment & Plan Assessment/Plan (1) Stroke-like symptoms: PLAN: Plan Acute CVA MRI brain shows acute ischemia in the left insular cortex and adjacent parietal lobe. Repeat MRI brain showed acute ischemia in the left insular cortex and adjacent parietal lobe. CT brain nonacute. CTA head/neck with mild worsening of known vertebral artery stenosis as below, no other concerning findings. echocardiogram done on 05/03 with EF 60%, no other significant findings noted. neurology consulted Worsening symptoms on the . Received 150mg clopidogrel and started on clopidogrel. Concerning for hypoperfusion and given IVF. Pt and concerned about a decrease in her blood sugar from the 200s to 90s, since her glucose is normally elevated. Overall, her expressive aphasia is improving though not at her baseline yet. Patient to follow-up with speech therapy as well as neurology as outpatient. Patient to continue with aspirin, clopidogrel and moderate dose statin. Hesitancy given prior medication intolerance. Patient and advised if she is starting develop myalgias that could be due to the statin. But if she does tolerate over 2 weeks and increase that to high intensity statin 80 mg at night. Carotid artery and vertebral artery disease, history of prior CVA Patient recently saw vascular surgery in the office on 05/19. Was noted that CTA head/neck results from 03/30 were reviewed and showed small caliber left vertebral artery consistent with stenosis and dominant right vertebral artery; also showed left carotid plaque with less than 50% stenosis. Compared to CTA neck images from 2018, noted to be similar in appearance. Plan was for no surgical intervention for vertebral artery stenosis in the absence of documented recurrent stroke while on maximum medical management. They recommended initiating baby aspirin and high intensity statin; patient was agreeable to starting aspirin but given concern for side effects declined the statin. Carotid duplex ultrasound on 06/12 showed mild right and left stenosis of extracranial internal carotid, and patent and antegrade vertebrals bilaterally. No apparent inpatient vascular surgery needs at this time, will hold off on consultation. Hypertension, accelerated Will start her on amlodipine. I did give the patient and her the opportunity to stay in the hospital to make sure that she tolerated that given the events that she had during this hospitalization with worsening expressive aphasia. They declined preferring to go home. I will start her on amlodipine 5 mg and that dose may need to be adjusted further but that we will have her follow-up with her primary care doctor, Dr. Vickers, in regards to evaluated. I did advise her to check her blood pressure at home and advised her to get rest for several minutes and have her feet on the floor when checking her blood pressure. Chronic conditions: Type 2 diabetes mellitus? Glucose 157 on admit. A1c 9.0%. Last A1c in our system from 2018 was 8.0%. Patient notes they have run between 8 and 9 typically. Will treat with reduced dose of Lantus 40 units at night and Humalog 8 units with meals plus sliding scale insulin while inpatient, adjust as needed. Anxiety? OARRS reviewed and patient has filled Ativan consistently since early . Continue home Ativan 1 mg 3 times daily as needed. Chronic bilateral knee pain with osteoarthritis? Recent established with Dr. Reid with pain management and had bilateral steroid injections done in the knees on Saturday 06/16. Okay for Tylenol as needed for pain control while inpatient. Class II obesity? BMI 37 on admit. Complicates hospital course and care. CODE STATUS: Full code, verified DW patient's at bedside. NIHSS NIHSS Nursing Documentation NIHSS Nursing Documentation: NIHSS: Ischemic Stroke/TIA Start: 06/20/25 20:53 Text: For PCU Patients: NIH and Neuro Check every 4 Status: Active hours, PRN and with change in RN caregiver. Freq: [id number] Protocol: Activity Type Activity Date Activity User E-sign Co-sign Detail Recorded Client Recorded Date Recorded By Document 06/23/25 09:15 TIM [id number] 06/23/25 09:15 TIM 06/23/25 09:15 NIH Stroke Scale [NIHSS] A score of 0 is normal or asymptomatic . Total possible score is 42. Inpatient: RN or Physician to activate a stroke alert for onset of new stroke symptoms or with NIHSS increase >/= 3 points. Following change in neurological status, NIHSS will be performed per physician order or more frequently PRN. -1a. Level of Consciousness 0 - Alert; keenly responsive -1b. LOC Questions 0 - Answers BOTH questions correctly -1c. LOC Commands 0 - Performs BOTH tasks correctly -2. Best Gaze 0 - Normal -3. Visual 0 - No visual loss -4. Facial Palsy 0 - Normal symmetrical movements -5a. Left Arm 0 - No drift; arm holds 90 ( or 45) degrees for full 10 seconds -5b. Right Arm 0 - No drift; arm holds 90 ( or 45) degrees for full 10 seconds -6a. Left Leg 0 - No drift; leg holds 30- degree position for full 5 seconds -6b. Right Leg 0 - No drift; leg holds 30- degree position for full 5 seconds -7. Limb Ataxia 0 - Absent -8. Sensory 0 - Normal; no sensory loss -9. Best Language 1 - Mild-to- moderate aphasia; -10. Dysarthria 0 - Normal -11. Extinction and Inattention 0 - No abnormality -Total 1 Query Text:A score of 0 is normal or asymptomatic. Total possible score is 42 . ED: Notify Physician for NIHSS increase by > / = 3 points. Inpatient: RN or Physician to activate a stroke alert for NIHSS increase of > / = 3 points. Coma Scale [Assess] -Eye Opening Spontaneous -Motor Obeys Commands -Verbal Oriented [Total] -Coma Scale Total 15
--- NOTE | 2025-06-23 10:43 | PCM.DC.SUM ---
Providers Date of Admission: 06/22/25 Primary Care Physician: Dr. Yusuf Vickers MD Consultations 06/20/25 20:53 Consult: Tele-Neurology Routine Consulting Provider: [facility] Reason for Consult: Acute Ischemic Stroke/TIA EMERGENT Consult: No MD Notified: Yes Date Notified: 06/20/25 Time Notified: 21:44 Method of Notification: Answering Service Method of Consult:: Telemedicine Nursing Unit Staff Notify [facility] of Tele-Neurology Consult: Yes Reason For Visit: STROKELIKE SYMPTOMS Diagnosis Discharge Diagnosis (1) Stroke-like symptoms: Status: Acute Code(s): R29.90 - Unspecified symptoms and signs involving the nervous system Plan Acute CVA MRI brain shows acute ischemia in the left insular cortex and adjacent parietal lobe. Repeat MRI brain showed acute ischemia in the left insular cortex and adjacent parietal lobe. CT brain nonacute. CTA head/neck with mild worsening of known vertebral artery stenosis as below, no other concerning findings. echocardiogram done on 05/03 with EF 60%, no other significant findings noted. neurology consulted Worsening symptoms on the . Received 150mg clopidogrel and started on clopidogrel. Concerning for hypoperfusion and given IVF. Pt and concerned about a decrease in her blood sugar from the 200s to 90s, since her glucose is normally elevated. Overall, her expressive aphasia is improving though not at her baseline yet. Patient to follow-up with speech therapy as well as neurology as outpatient. Patient to continue with aspirin, clopidogrel and moderate dose statin. Hesitancy given prior medication intolerance. Patient and advised if she is starting develop myalgias that could be due to the statin. But if she does tolerate over 2 weeks and increase that to high intensity statin 80 mg at night. Carotid artery and vertebral artery disease, history of prior CVA Patient recently saw vascular surgery in the office on 05/19. Was noted that CTA head/neck results from 03/30 were reviewed and showed small caliber left vertebral artery consistent with stenosis and dominant right vertebral artery; also showed left carotid plaque with less than 50% stenosis. Compared to CTA neck images from 2018, noted to be similar in appearance. Plan was for no surgical intervention for vertebral artery stenosis in the absence of documented recurrent stroke while on maximum medical management. They recommended initiating baby aspirin and high intensity statin; patient was agreeable to starting aspirin but given concern for side effects declined the statin. Carotid duplex ultrasound on 06/12 showed mild right and left stenosis of extracranial internal carotid, and patent and antegrade vertebrals bilaterally. No apparent inpatient vascular surgery needs at this time, will hold off on consultation. Hypertension, accelerated Will start her on amlodipine. I did give the patient and her the opportunity to stay in the hospital to make sure that she tolerated that given the events that she had during this hospitalization with worsening expressive aphasia. They declined preferring to go home. I will start her on amlodipine 5 mg and that dose may need to be adjusted further but that we will have her follow-up with her primary care doctor, Dr. Vickers, in regards to evaluated. I did advise her to check her blood pressure at home and advised her to get rest for several minutes and have her feet on the floor when checking her blood pressure. Chronic conditions: Type 2 diabetes mellitus? Glucose 157 on admit. A1c 9.0%. Last A1c in our system from 2017 was 8.0%. Patient notes they have run between 8 and 9 typically. Will treat with reduced dose of Lantus 40 units at night and Humalog 8 units with meals plus sliding scale insulin while inpatient, adjust as needed. Anxiety? OARRS reviewed and patient has filled Ativan consistently since early . Continue home Ativan 1 mg 3 times daily as needed. Chronic bilateral knee pain with osteoarthritis? Recent established with Dr. Reid with pain management and had bilateral steroid injections done in the knees on Saturday 06/16. Okay for Tylenol as needed for pain control while inpatient. Class II obesity? BMI 37 on admit. Complicates hospital course and care. CODE STATUS: Full code, verified DW patient's at bedside. Medications at Discharge Home Medications insulin glargine 100 unit/mL (3 mL) subcutaneous pen (Lantus Solostar U-100 Insulin) 66 unit subcut QHS DIABETES 12/18/23 cholecalciferol (vitamin D3) 1,250 mcg (50,000 unit) capsule 1,250 mcg PO QWEEK SUPPLEMENT 05/08/25 mupirocin 2 % topical ointment (Centany) 1 applic topical TID 05/08/25 pen needle, diabetic 32 gauge x 05/08/25 pen needle, diabetic 32 gauge x 05/08/25 acetaminophen 500 mg capsule 1,000 mg PO Q6H PRN fever or pain 06/20/25 clobetasol 0.05 % topical cream 1 applic topical BID PRN dry skin 06/20/25 lorazepam 1 mg tablet 1 mg PO TID PRN anxiety 06/20/25 aspirin 81 mg chewable tablet 81 mg PO BREAKFAST #0 tabs 06/21/25 atorvastatin 40 mg tablet (Lipitor) 40 mg PO QHS #60 tabs 06/21/25 amlodipine 5 mg tablet 5 mg PO DAILY #30 tabs 06/23/25 clopidogrel 75 mg tablet 75 mg PO DAILY #30 tabs 06/23/25 Hospital Course Operations None Procedures 2-D Echocardiogram Summary of Care Provided Hospital Course: Greater than 30 minutes spent on discharge This is a 75-year-old female who presents with acute onset of expressive aphasia. Patient was found to have an acute left insular cortex and adjacent parietal lobe infarct. While she was here, she did actually have worsening of her symptoms to the point where she was aphasic. They try to increase her cerebral perfusion pressure by giving her IV fluids. Patient did actually have improvements of her expressive aphasia. Patient still is having expressive aphasia as well as some receptive aphasia but overall much improved at this time. Patient will continue to follow-up with neurology as well as speech therapy upon discharge. For her medications, she will be on amlodipine for her blood pressure as her blood pressure has been high, as well as aspirin, clopidogrel and atorvastatin. Were not utilizing high intensity statin at this point in time given hesitancy that she and her have endorsed to if she would tolerate the medication but will start her on a trial of 40 mg daily get it for 2 weeks if she tolerates that that then to increase the dose to 80 mg daily. However if she is experiencing myalgias either she will need to call her primary care doctor to try another statin or discontinue the statins altogether. Weight / BMI Weight Weight: 94.7 kg Body Mass Index (BMI) 37.0 ABG / Lab / Microbiology Data 06/21/25 05:18 06/21/25 05:18 Laboratory: Laboratory Results - last 24 hr 06/22/25 11:31: POC Glucose 140 H 06/22/25 16:56: POC Glucose 164 H 06/22/25 22:05: POC Glucose 135 H 06/23/25 08:29: POC Glucose 143 H D/C Instructions DC O2, CPAP, BIPAP Needs Home O2 Discharge instructions: No Meaningful Use Info Meaningful Use Meaningful Use Diagnoses (Choose all that apply): Ischemic CVA CVA Therapy Assessed for PT,OT and/or ST?: Yes Ischemic Stroke Antithrombotic order at d/c?: Yes Reason antithrombotic not ordered: Treatment not Indicated Dx of Atrial fib/flutter?: No Anticoagulant at discharge?: No Reason anticoagulant not ordered: Treatment not Indicated Statins at discharge?: Yes If patient is 75 or younger, pt will be discharged on HIGH intensity statin.: No High intensity statin for patient 75 or younger not ordered due to: patient request. Primary Dx Acute Ischemic CVA?: Yes IV thrombolytic ordered during stay?: No Discharge Plan Admission Admit Date/Time: 06/22/25 12:58 Primary Reason for Your Visit: Stroke Attending Provider: Dg Monroe Primary Care Provider: Yusuf Vickers Consulting Providers: Nicanor Law Instructions Additional Instructions / Restrictions: You had a stroke (left parietal lobe) that has affected you speech. To help prevent another stroke, neurology has advised aspirin 81mg (aka, baby aspirin) daily, atorvastatin (aka Lipitor) 40mg at night, and if after 2 weeks, increase that to 80mg at night. Follow up with neurology, vascular surgery and speech therapy. Also, your diabetes could use further improvment and it is advised to follow up with endocrinology as outpt. Discharge Orders/Prescriptions Prescriptions: New aspirin 81 mg Tablet,Chewable 81 mg PO BREAKFAST Qty: 0 0RF atorvastatin [Lipitor] 40 mg tablet 40 mg PO QHS Qty: 60 0RF Rx Instructions: 1 tablet at night for 2 weeks, if tolerated, increase to 2 tablets at night. clopidogrel 75 mg Tablet 75 mg PO DAILY Qty: 30 0RF amlodipine 5 mg Tablet 5 mg PO DAILY Qty: 30 0RF Continued insulin glargine [Lantus Solostar U-100 Insulin] 100 unit/mL (3 mL) insulin pen 66 unit subcut QHS mupirocin [Centany] 2 % ointment 1 applic topical TID cholecalciferol (vitamin D3) 1,250 mcg (50,000 unit) capsule 1,250 mcg PO QWEEK (DME) pen needle, diabetic 32 gauge x 5/32 needle See Rx Instructions .ROUTE Rx Instructions: As directed (DME) pen needle, diabetic 32 gauge x 5/32 needle See Rx Instructions .ROUTE Rx Instructions: As directed lorazepam 1 mg tablet 1 mg PO TID PRN (Reason: anxiety) acetaminophen 500 mg capsule 1,000 mg PO Q6H PRN (Reason: fever or pain) clobetasol 0.05 % cream 1 applic topical BID PRN (Reason: dry skin) Referrals / Follow Up: [facility] [Provider Group] - Within 1 Month Yusuf Vickers MD [Primary Care Provider, Family Practice] - Within 2 Weeks Disposition Disposition (needs filled in before D/C Order can be placed): Home, Self Care Charges/Coding Visit Charges Inpatient E&M: 34464 Disch Hosp >30min
--- NOTE | 2025-06-23 11:53 | PHA.DC_ITS ---
Pharmacy DC Med Rec Counseling
--- NOTE | 2025-06-23 11:53 | PHA.DC.MC.R ---
Pharmacy [facility] Counseling Pharmacy Service has performed discharge medication reconciliation and counseling for this patient. 1. AMLODIPINE 5MG PO DAILY 2. ASPIRIN 81MG PO BREAKFAST 3. ATORVASTATIN 40MG PO QHS X 2 WEEKS, THEN INCREASE TO 80MG IF TOLERABLE 4. CLOPIDOGREL 75MG PO DAILY The patient's discharge medication list was reviewed for discrepancies and discrepancies were resolved. The patient was counseled on the following discharge medications and changes in medications for homegoing were reviewed. The Reason for Use, instructions for use, and potential side effects were reviewed for all new medications. The patient's questions regarding all of their medications were answered. The patient was able to verbally demonstrate an understanding of their discharge medications. Patient counseled by pharmacy graduate internMazin. Medications at Discharge Home Medications insulin glargine 100 unit/mL (3 mL) subcutaneous pen (Lantus Solostar U-100 Insulin) 66 unit subcut QHS DIABETES 12/18/23 cholecalciferol (vitamin D3) 1,250 mcg (50,000 unit) capsule 1,250 mcg PO QWEEK SUPPLEMENT 05/08/25 mupirocin 2 % topical ointment (Centany) 1 applic topical TID 05/08/25 pen needle, diabetic 32 gauge x 05/08/25 pen needle, diabetic 32 gauge x 05/08/25 acetaminophen 500 mg capsule 1,000 mg PO Q6H PRN fever or pain 06/20/25 clobetasol 0.05 % topical cream 1 applic topical BID PRN dry skin 06/20/25 lorazepam 1 mg tablet 1 mg PO TID PRN anxiety 06/20/25 aspirin 81 mg chewable tablet 81 mg PO BREAKFAST #0 tabs 06/21/25 atorvastatin 40 mg tablet (Lipitor) 40 mg PO QHS #60 tabs 06/21/25 amlodipine 5 mg tablet 5 mg PO DAILY #30 tabs 06/23/25 clopidogrel 75 mg tablet 75 mg PO DAILY #30 tabs 06/23/25
--- NOTE | 2025-06-23 12:45 | CHAPLAIN ---
Type of Pastoral Visit _x__ Initial Visit ___ Follow-up Visit ___ On-call Visit ___ General Patient Visit ___ Spiritual Assessment ___ Family Conference ___ Bereavement ___ Rapid Response ___ Code Blue ___ Other (describe below) Pastoral Care Referral From _x__ Patient _x_ Family ___ Nurse ___ Physician ___ Healthcare Technician ___ Flame Cutting Machine Operator Helper ___ Other (describe below) Sacrament/Intervention _x__ Active listening ___ Anointing ___ Advent ___ Bereavement ___ Communion _x__ Romelia exploration ___ ___ Life review _x__ Prayer ___ Reconciliation ___ Sacrament of Sick ___ Supportive presence ___ Wedding ___ Other (describe below) Pastoral Comments patient and spouse are in the room; pt gives report with optimism that she is doing much better than before; pt has some limited speech issues but is writing and speaking better than yesterday; pt admits to being tired but thankful that she will be discharged today; both speak of how many people are praying and that they are thankful to God for answering those prayers; casual conversation and prayer given
== END 2025-06-23 11:46 | disposition home or self-care (01) | DRG 65 ==
LOC: ED 19:43 → PCU 20:04
PROVIDERS: Admitting Provider Hospitalist; Emergency Provider Emergency Medicine; PCP Family Medicine
DX: I63.9 Cerebral infarction, unspecified (principal); I24.89 Other forms of acute ischemic heart disease; E11.65 Type 2 diabetes mellitus with hyperglycemia; I10 Essential (primary) hypertension; I65.03 Occlusion and stenosis of bilateral vertebral arteries; E66.812 Obesity, class 2; R47.01 Aphasia; E78.5 Hyperlipidemia, unspecified; Z79.4 Long term (current) use of insulin; I65.23 Occlusion and stenosis of bilateral carotid arteries; F41.9 Anxiety disorder, unspecified; M17.0 Bilateral primary osteoarthritis of knee; G89.29 Other chronic pain; R29.701 NIHSS score 1; Z68.37 Body mass index [BMI] 37.0-37.9, adult; Z79.02 Long term (current) use of antithrombotics/antiplatelets; Z79.82 Long term (current) use of aspirin; Z79.899 Other long term (current) drug therapy
CPT/HCPCS: 36415; 70450; 70496; 70498; 70551; 71045; 80048; 80061; 82962; 83036; 84443; 84484; 85025; 85027; 85610; 85730; 93005; 94762; 97162; 97166; 97530; 97802; 99285; Q9967; A4216